=== PATIENT | male | born 1955 | race Caucasian/White ===

== ENCOUNTER 2019-06-25 16:44 | Inpatient (IN) | payer OTHER, MEDICARE, SELFPAY | END 2019-07-02 20:30 | disposition home health service (06) | DRG 541 | PROVIDERS: Admitting Provider Internal Medicine; Emergency Provider Emergency Medicine; PCP Family Medicine; Visit Provider Family Medicine | DX: M46.26 Osteomyelitis of vertebra, lumbar region (principal); L40.50 Arthropathic psoriasis, unspecified; F31.9 Bipolar disorder, unspecified; M54.5 Low back pain; G89.29 Other chronic pain; F17.210 Nicotine dependence, cigarettes, uncomplicated; J44.9 Chronic obstructive pulmonary disease, unspecified | CPT/HCPCS: 36415; 71045; 72148; 80048; 80053; 80202; 81003; 82565; 83605; 83690; 83735; 85025; 85027; 85652; 86141; 87040; 87081; 93308; 96361; 96365; 96372; 96375; 96376; 99285; A9270; G0378; J1170; J1650; J2270; J3010; J3370; J7060; J7120; J7512 ==

== ENCOUNTER 2020-07-06 12:41 | Outpatient (CLI) | payer OTHER, MEDICARE, SELFPAY ==
--- NOTE | ~2020-07-06 | MMUS_ITS ---
EXAMINATION: MM diagnostic mammo unilat RT, US breast RT limited HISTORY: Palpable subareolar lump of the right breast TECHNIQUE: Full field craniocaudal and mediolateral oblique views of the right breast are obtained. M ediolateral oblique view of the left breast is obtained for comparison. CAD analysis was submitted an d interpreted. High resolution limited right breast ultrasound was performed. COMPARISON: None BREAST PARENCHYMAL COMPOSITION: The breasts are almost entirely fatty. FINDINGS: MAMMOGRAPHIC FINDINGS: There is focal asymmetry in the subareolar aspect of the right breast compared to the left. No suspic ious calcification or architectural distortion are identified. ULTRASOUND: There is a flame-shaped hypoechoic area in the subareolar aspect of the right breast corresponding to the mammographic finding in question. IMPRESSION: 1. Mammographic and sonographic findings consistent with asymmetric gynecomastia of the right breast. Further evaluation at this time should be based on clinical assessment. Continued follow-up physical examination is recommended. BI-RADS Category 2: Benign finding(s). Reviewed, dictated and finalized at location A. IMPRESSION: 1. Mammographic and sonographic findings consistent with asymmetric gynecomasti a of the right breast. Further evaluation at this time should be based on clini jessica assessment. Continued follow-up physical examination is recommended. BI-RADS Category 2: Benign finding(s).
== END 2020-07-06 12:42 | disposition home or self-care (01) ==
PROVIDERS: PCP Family Medicine; Visit Provider Physician Assistant
DX: N63.41 Unspecified lump in right breast, subareolar (principal)
CPT/HCPCS: 76642; 77065

== ENCOUNTER 2020-08-28 20:27 | Inpatient (IN) | payer OTHER, MEDICARE, SELFPAY ==
--- NOTE | ~2020-08-28 | XR_ITS ---
EXAMINATION: XR abdomen obstructive series DATE: 08/31/2020 10:12 INDICATION: Abdominal distention TECHNIQUE: Supine and upright views of the abdomen. FINDINGS: 08/31/2020 The visualized lung parenchyma is normal.. There is an obstructive small bowel gas pattern. Gas and s tool are seen throughout the colon to the level of the rectum. There is no free air. There is a left hip arthroplasty. Moderate lumbar spondylosis. No acute osseous abnormality. Elevated right diaphrag m. IMPRESSION: 1. Small bowel obstruction. Reviewed, dictated and finalized at location B. IMPRESSION: 1. Small bowel obstruction.
--- NOTE | ~2020-08-28 | XR_ITS ---
EXAMINATION: XR abdomen obstructive series DATE: 08/31/2020 07:33 INDICATION: Adynamic ileus. TECHNIQUE: Upright and supine views of the abdomen were obtained. COMPARISON: CT abdomen and pelvis 08/28/2020, abdomen radiographs 08/29/2020 FINDINGS: There are multiple dilated loops of small bowel. The colon is normal in caliber. There is a paucity of stool in the colon. No free intraperitoneal gas. There is a bipolar left hip hemiarthropl asty. IMPRESSION: 1. Dilated small bowel with interval worsening, likely adynamic ileus. Reviewed, dictated and finalized at location A.
--- NOTE | ~2020-08-28 | XR_ITS ---
EXAMINATION: XR abdomen NG/feed tube insert DATE: 08/31/2020 10:39 INDICATION: Nasogastric tube placement. TECHNIQUE: An upright view of the abdomen was obtained. COMPARISON: Abdomen radiographs 08/31/2020 FINDINGS: The lower abdomen is excluded. There are multiple dilated loops of small bowel. The colon i s decompressed. The nasogastric tube tip is in the stomach. There is marked elevation of right hemidi aphragm with mild atelectasis at right lung base. IMPRESSION: 1. Nasogastric tube tip in the stomach. 2. Dilated small bowel, most likely adynamic ileus. Reviewed, dictated and finalized at location A.
--- NOTE | ~2020-08-28 | XR_ITS ---
EXAMINATION: XR abdomen obstructive series DATE: 08/29/2020 09:39 INDICATION: Low abdominal pain. TECHNIQUE: Upright and supine views of the abdomen on 3 radiographs were obtained. COMPARISON: Abdomen radiographs 07/24/2019 FINDINGS: There are multiple dilated loops of small bowel. The colon is decompressed. No free intrape ritoneal gas. There is a bipolar left hip hemiarthroplasty. IMPRESSION: 1. Newly dilated small bowel, likely adynamic ileus. Reviewed, dictated and finalized at location A.
--- NOTE | ~2020-08-28 | CT_ITS ---
EXAMINATION: CT abdomen pelvis w con DATE: 08/31/2020 13:20 INDICATION: Abdominal pain and distention TECHNIQUE: Computed tomography (CT) of the abdomen and pelvis was performed with 100 mL Omnipaque-350 intravenous contrast. Automated exposure control and iterative reconstruction technique were employe d. The dose-length product was 1004.70 mGy-cm. COMPARISON: 08/28/2020 FINDINGS: Chronic elevation of the right hemidiaphragm. Small right pleural effusion and right lower lobe colla pse. Mild atelectasis in the left lower lobe and lingula. Heart size is normal. Atherosclerotic coron mila artery calcific calcification versus stenting at the left anterior descending coronary artery. No pericardial effusion. Nasogastric tube tip in the body of the stomach. Diffuse hepatic steatosis. Ga llbladder, spleen and bilateral adrenal glands are normal. There are are couple tiny calcifications a t the head of the otherwise normal pancreas which could be either atherosclerotic or sequela of chron ic pancreatitis. Kidneys enhance symmetrically with no hydronephrosis. Small region of cortical scarr ing at the mid right kidney. 6 mm cyst at the upper pole of the left kidney. Multiple mildly dilated loops of gas and fluid-filled small bowel throughout the abdomen and pelvis m easuring up to 4.4 cm in maximal diameter and extending from the mid small bowel through the terminal ileum with no discrete transition point to suggest obstruction. There is an irregular wall thickenin g at the cecum with surrounding inflammatory stranding which could be related to focal colitis. Fluid in the proximal colon consistent with diarrhea. No pneumatosis or free intraperitoneal gas. Increase in a still small amount of ascites scattered throughout the abdomen and pelvis. Bladder is normal. S mall fat-containing left inguinal hernia. No pathologically enlarged abdominal or pelvic lymphadenopa thy. Severe thoracolumbar spondylosis. Anterior wedging of the now fused T11 and T12 vertebral bodies which could represent sequela of chronic trauma or discitis. Partially visualized bipolar type left hip hemiarthroplasty. IMPRESSION: 1. Persistent wall thickening at the cecum which could be related to focal colitis although different ial would include malignancy. Correlate clinically and consider follow-up colonoscopy when clinically appropriate. 2. Mild dilation of the mid to distal small bowel extending to the ileocecal valve without discrete o bstructing small bowel lesion. This could represent either ileus or partial small bowel obstruction a t the level of the cecum/ileocecal valve. 3. Increase in a still small amount of likely reactive ascites throughout the abdomen and pelvis. 4. Elevation of the right hemidiaphragm, small right pleural effusion and right lower lobar collapse. 5. Diffuse hepatic steatosis. Reviewed, dictated and finalized at location A. IMPRESSION: 1. Persistent wall thickening at the cecum which could be related to focal coli tis although differential would include malignancy. Correlate clinically and co nsider follow-up colonoscopy when clinically appropriate. 2. Mild dilation of the mid to distal small bowel extending to the ileocecal va lve without discrete obstructing small bowel lesion. This could represent eithe r ileus or partial small bowel obstruction at the level of the cecum/ileocecal valve. 3. Increase in a still small amount of likely reactive ascites throughout the a bdomen and pelvis. 4. Elevation of the right hemidiaphragm, small right pleural effusion and right lower lobar collapse. 5. Diffuse hepatic steatosis.
--- NOTE | ~2020-08-28 | CT_ITS ---
EXAMINATION: CT abdomen pelvis w con EXAM DATE: 08/28/2020 21:27 INDICATION: Right-sided abdominal pain. TECHNIQUE: Spiral CT of the abdomen and pelvis was performed following intravenous injection of 100 m L Omnipaque 350. Axial, coronal and sagittal images were reviewed. The dose-length product (DLP) fo r this examination was 688.84 mGy-cm. The exposure was tailored according to patient size (auto mA e xposure control), and iterative reconstruction (ASIR) was used as additional dose reduction technique . Comparison is made to prior examination from 10/24/2019. FINDINGS: There is colonic interposition. The ascending colon is edematous, with adjacent inflammatio n. The appendix is not specifically identified. There are several punctate foci of gas within the soheila er likely portal venous gas. No pneumatosis is specifically identified within the colonic wall. Appea clay is most of this with colitis. The opacified vasculature is widely patent, but check amylase/lip ase. Small amount of perihepatic ascites. The liver, spleen, adrenal glands and pancreas are unremarkable. Gallbladder is unremarkable. No biliary obstruction. Portal and splenic veins are patent. Kidney s enhance symmetrically. There is no hydronephrosis. The prostate is unremarkable. Small amount of free pelvic fluid. The bladder is unremarkable. There is no retroperitoneal or pelvic lymphadenopa thy. There is mild scattered arteriosclerotic disease. The stomach and small bowel are unremarkable. There is expected amount of colonic stool. No free i ntraperitoneal gas. The heart is normal in size. There are no pericardial or pleural effusions. D evelopment of elevated right hemidiaphragm with subsegmental right lower lobe atelectasis. There are no osteoblastic or osteolytic lesions identified. There is left hip arthroplasty. T11-12 partially f used appearance could be sequela from prior episode of discitis. IMPRESSION: 1. Moderate amount of ascending colonic inflammation, wall edema, appearance most consistent with col itis. Small amount of portal venous gas. Could be infectious etiology but check amylase/lipase. Inqui re about history of appendectomy. 2. Right lower lobe segmental atelectasis. Reviewed, dictated and finalized at location A. IMPRESSION: 1. Moderate amount of ascending colonic inflammation, wall edema, appearance mo st consistent with colitis. Small amount of portal venous gas. Could be infecti ous etiology but check amylase/lipase. Inquire about history of appendectomy. 2. Right lower lobe segmental atelectasis.
--- NOTE | ~2020-08-28 | XR_ITS ---
EXAMINATION: XR chest 1V portable DATE: 08/31/2020 10:12 INDICATION: Shortness of breath. TECHNIQUE: A single frontal view of the chest was obtained. COMPARISON: Chest 2 views 11/14/2019, CT abdomen and pelvis 08/28/2020 FINDINGS: There is marked elevation of right hemidiaphragm. There is atelectasis at the lung bases, r ight worse than left. No pleural effusion or pneumothorax. The heart size is normal. IMPRESSION: 1. Marked elevation of right hemidiaphragm, worsened from 11/14/2019. 2. Atelectasis at the lung bases, right worse than left. Reviewed, dictated and finalized at location A.
[2020-08-28 20:36] VITALS: BP 140/77; PULSE 130; RESP 24; TEMP 36.1; O2SAT 93
[2020-08-28 20:40] VITALS: BP 155/99; PULSE 127; RESP 23; O2SAT 97
--- NOTE | 2020-08-28 20:40 | ECG_ITS ---
Measurements Intervals [place] Rate: 94 P: 114 [place]: 189 QRS: -12 QRSD: 93 T: 63 QT: 295 QTc: 369 Interpretive Statements SINUS TACHYCARDIA BORDERLINE R WAVE PROGRESSION, ANTERIOR LEADS BASELINE ARTIFACT- II, III, AVR, AVF, V4 ABNORMAL ECG Electronically Signed On 08-29-2020 7:31:27 CDT by Jeronimo Snow D.O.
[2020-08-28] MEDS: MORPHINE SULFATE (*CRX) 4 MG/ML INJ IV PUSH ×2 (21:01→22:56)
[2020-08-28] MEDS: ONDANSETRON INJ 4 MG/2 ML VIAL IV PUSH (21:01)
[2020-08-28] MEDS: SODIUM CHLORIDE 0.9% IV 1,000 ML 999 ML IV CONT ×2 (21:01→23:50)
[2020-08-28 21:11] LABS: Basophils Percent Auto 0.2 % (0.2-1.2); Eosinophils Percent Auto 0.1 % (0-4.4); Hematocrit 42.7 % (42.0-52.0); Hemoglobin 14.2 g/dL (14.0-18.0); Immature Granulocyte Absolute 0.09 K/mm3 (0.00-0.031); Immature Granulocyte Percent A 0.5 % (0-0.5); Lymphocytes Absolute Auto 1.36 K/mm3 (0.9-3.2); Lymphocytes Percent Auto 7.2 % (18.3-44.2); Mean Corpuscular HGB Conc 33.3 g/dl (32-36); Mean Corpuscular Hemoglobin 33.3 pg (26-34); Mean Corpuscular Volume 100.2 fl (80-100); Mean Platelet Volume 9.5 fl (7.4-10.4); Monocytes Absolute Auto 0.9 K/mm3 (0.1-0.6); Monocytes Percent Auto 4.5 % (2.6-8.5); Neutrophils Absolute Auto 16.6 K/mm3 (1.3-6.7); Neutrophils Percent Auto 87.5 % (45.5-73.1); Platelet Count Result 289 k/mm3 (150-375); Red Blood Count 4.26 M/mm3 (4.6-6.20); Red Cell Distribution Width 15.9 % (11.5-14.5)
[2020-08-28 21:20] LABS: Estimated CRCL calculation 76 ml/min; Estimated Glomerular Filt Rate > 60
[2020-08-28 21:22] LABS: Alanine Aminotransferase 32 U/L (4-50); Albumin Level 3.9 g/dL (3.5-5.1); Alkaline Phosphatase 90 U/L (38-126); Anion Gap 4 mmol/L (8-16); Aspartate Amino Transferase 35 U/L (17-59); Bilirubin,Total 0.6 mg/dL (0.2-1.3); Blood Urea Nitrogen 10 mg/dL (9-20); Calcium 8.9 mg/dL (8.4-10.2); Carbon Dioxide 34 mmol/L (22-30); Chloride 92 mmol/L (98-107); Estimated CRCL calculation 76 ml/min; Estimated Glomerular Filt Rate > 60; Glucose 128 mg/dL (75-110); Lipase 44 U/L (23-300); Potassium 4.3 mmol/L (3.4-5.0); Sodium 130 mmol/L (137-145)
--- NOTE | 2020-08-28 22:00 | ED.GENADULT ---
HPI - General Adult General Chief complaint: Abdominal Pain Stated complaint: ABD PAIN Time Seen by Provider: 08/28/20 20:38 History of Present Illness HPI narrative: Patient is a 64-year-old male who presents the ER with sudden onset right-sided abdominal pain. He had been at home throughout the day moving some furniture. He reports he was lifting something and developed some sudden pain on the right side. He does endorse loose stool earlier today. No fevers or chills or sweats. Pain is worse with any type of movement. He has not found any alleviating factors other than laying still. Reports he has had his appendix out previously. Related Data Home Medications Medication Instructions Recorded Confirmed B-complex with vitamin C 1 tablet PO DAILY 10/17/19 aripiprazole 2 mg tablet 2 mg PO DAILY 10/17/19 aspirin 81 mg tablet,delayed 81 mg PO DAILY 10/17/19 release atorvastatin 20 mg tablet 20 mg PO DAILY 10/17/19 cholecalciferol (vitamin D3) 25 2,000 unit PO DAILY cap 10/17/19 mcg (1,000 unit) capsule cyclobenzaprine 10 mg tablet 10 mg PO TID 10/17/19 folic acid 1 mg tablet 1 mg PO DAILY 10/17/19 ipratropium 20 mcg-albuterol 100 1 puff INHALATION Q4H 10/17/19 mcg/actuation mist for inhalation lisinopril 10 mg tablet 10 mg PO DAILY 10/17/19 multivitamin 1 cap PO DAILY 10/17/19 oxycodone-acetaminophen 10 mg-325 1 tablet PO Q8H PRN 10/17/19 mg tablet prednisolone sodium phosphate 10 10 mg PO DAILY 10/17/19 mg disintegrating tablet venlafaxine 150 mg 150 mg PO DAILY 10/17/19 capsule,extended release 24 hr Allergies Allergy/AdvReac Type Severity Reaction Status Date / Time vancomycin AdvReac Flushing Verified 08/28/20 20:39 Review of Systems Review of Systems: All systems reviewed & are unremarkable except as noted in HPI and below Constitutional: Constitutional: Denies chills, Denies fever(s) and Denies weakness ENT: Denies nasal congestion and Denies sore throat Cardiovascular: Cardiovascular: Denies chest pain and Denies radiating jaw, neck or arm pain Respiratory: Respiratory: Denies cough and Denies dyspnea Gastrointestinal: Gastrointestinal: Reports abdominal pain, Reports diarrhea, Denies nausea and Denies vomiting [facility] Past Medical History Medical History (Updated 11/15/19 @ 00:00 by Isela Dakaushik) Bipolar 1 disorder COPD (chronic obstructive pulmonary disease) Depression History of MRSA infection History of stomach ulcers HTN (hypertension) Surgical History Surgical History H/O heart artery stent History of hip replacement Family History Family History Father COPD (chronic obstructive pulmonary disease) Mother Cancer Unknown Cancer Social History Social History Smoking packs per day: 1.5 Smoking cigarettes per day: 30.0 Years smoked: 47 Smoking pack-years: 70.50 Smoking status: Current every day smoker Tobacco type: cigarettes Additional smoking assessment comments: trying to quit Alcohol intake: current Drinks per week: 1 Substance use: never Gender identity (if verbalized by the patient): Male Spiritual care concerns: No Exam Narrative: Exam Narrative: GENERAL: Uncomfortable-appearing, well-nourished, and in no mild distress. HEAD: Normocephalic, atraumatic. ENT: Mucous membranes moist. CHEST: Clear to auscultation. No respiratory distress. HEART: Tachycardic and regular.. Normal peripheral pulses. ABDOMEN: Soft, tender to palpation right upper quadrant but significantly tender in the right lower quadrant with guarding, nondistended, normal active bowel sounds. EXTREMITIES: Normal range of motion. No edema. SKIN: Warm, dry, no rash. NEURO: Alert and oriented x3. PSYCH: Normal mood and affect. Course Course Emergency Course: Pain improving but pat
[2020-08-28 22:14] LABS: Add Urine Microscopic? NO; Appearance Urine Clear (Clear); Bilirubin Urine Negative (Negative); Blood Urine Negative (Negative); Color Urine Yellow (Yellow); Glucose Urine UA Negative (Negative); Ketones Urine Negative (Negative); Leukocyte Esterase Ur Negative LEU/UL (Negative); Nitrate Urine Negative (Negative); Protein Urine Negative (Negative); Urobilinogen Urine Negative mg/dL (<2.0)
[2020-08-28] MEDS: metroNIDAZOLE 500 MG/ISO 100ML 500 MG/100 ML BAG 100 MG IVPB (22:24)
[2020-08-28 22:43] LABS: Specific Grav Ur 1.033 (1.001-1.035)
[2020-08-28] MEDS: CIPROFLOXACIN 400 MG/D5W 200ML 200 ML 200 MG IVPB (22:48)
[2020-08-28 22:53] LABS: Lactic Acid Reflex 1.6 mmol/L (0.7-2.1)
[2020-08-28 22:58] VITALS: BP 148/75; PULSE 111; O2SAT 92
[2020-08-28 23:14] VITALS: BP 112/67; PULSE 135; RESP 20; TEMP 37.3; O2SAT 91
[2020-08-28 23:15] VITALS: BMI 28.4
[2020-08-28 23:32] VITALS: BMI 28.7
--- NOTE | 2020-08-28 23:33 | ADMGEN ---
This patient, Israel Plascencia Sr., was admitted to IMU Room 212-01 at 23:18. Patient/family oriented to hospital policies and general routines including ID bracelet, bed and alarms, visiting hours, pain management, procedures, bathroom and other care routines, personal items, smoking policy, room service/diet, and visiting hours. Information on how to activate the Rapid Response Team has been discussed. Patient/Family are encouraged to report perceived risks to care and to ask questions if they do not understand what they are told or what they should do.
[2020-08-29] VITALS (16 sets, daily range): BP systolic 108–129; BP diastolic 59–80; PULSE 100–137; RESP 20–28; TEMP 36.1–36.5; O2SAT 91–98
--- NOTE | 2020-08-29 00:13 | PM.IMHP ---
H&P: HPI History of Present Illness Date/Time: 08/28/20 1753 Chief complaint: Colitis Narrative: Israel Plascencia Sr. is a 64 year old male Who came to the emergency room today because he started to have abdominal pain since 4:00 this afternoon. The patient stated that he had been having loose stools but not diarrhea water Gerry 2 [place]. He has not been having any blood in his stools. He has been having normal bowel movements. He has had a history of having small-bowel obstructions and ileus in the past. He has had a history of having worsened his bloodstream as well. The patient had been on antibiotics for 45 days in the past he had osteomyelitis in his back. He has also had a history of stomach ulcers as well. The patient stated he felt nauseated today but did not vomit. He states that his pain is severe and he was given morphine in the emergency room which just relieved it minimally and is still in pain. Blood cultures have been obtained. Abdominal pelvis CT was read as moderate amount of the ascending colonic inflammation, wall edema, appearance most consistent with colitis. Small amount of portal venous gas could be infectious etiology but check amylase lipase. Inquire about history of appendectomy. Right lower lobe segmental atelectasis. Patient was started on Flagyl and Cipro. He was started on IV fluids. Patient is still in discomfort. His white count was noted to be 19.0. Sodium is low at 130. Lactic was normal at 1.6. Patient is being admitted as observation on 08/28/2020 Review of Systems Review of Systems: All systems reviewed & are unremarkable except as noted in HPI and below Constitutional: Constitutional: Reports as per HPI and Reports no additional constitutional complaints Eyes: Eyes: Reports as per HPI and Reports no additional eye complaints ENT: Reports system reviewed and no additional complaints, except as documented and Reports Normal hearing present Cardiovascular: Cardiovascular: Reports no additional cardiovascular complaints Respiratory: Respiratory: Reports no additional respiratory complaints and Reports no additional respiratory complaints Gastrointestinal: Gastrointestinal: Reports as per HPI and Reports no additional gastrointestinal complaints Musculoskeletal: Musculoskeletal: Reports no additional musculoskeletal complaints Integumentary/Breasts: Skin/Breast: Reports system reviewed and no additional complaints, except as docu and Reports as per HPI Neurologic: Reports system reviewed and no additional complaints, except as documented, Reports as per HPI and Reports Normal hearing present Psychiatric: Psychiatric: Reports no additional psychiatric complaints and Reports as per HPI Endocrine: Endocrine: Reports no additional endocrine complaints Hematologic/Lymphatic: Hematologic/Lymphatic: Reports no additional hematologic/lymphatic complaints Allergic/Immunologic: Allergic/Immunologic: Reports no additional allergic/immunologic complaints [facility] Past Medical History Medical History (Updated 08/29/20 @ 00:32 by Kelsi Dejesus NP) Anxiety and depression Bipolar 1 disorder CAD (coronary artery disease) 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 Repeat evaluation and was in 2017. Chronic back pain COPD (chronic obstructive pulmonary disease) Depression History of MRSA infection History of stomach ulcers History of suicide attempt multiple times HTN (hypertension) Hyperlipidemia MRSA infection Psoriatic arthritis Surgical History Surgical History (Updated 08/29/20 @ 00:27 by Kelsi Dejesus NP) H/O heart artery stent 1 stent 2004 with a repeat catheterization in 2006 no intervention was done at that time H/O toe surgery hammertoe repair History of ankle surgery left heel repaired History of appendectomy 1986 History of hip replacement Hx of rhinoplasty Family History Family History
[2020-08-29] MEDS: SODIUM CHLORIDE 0.9% IV 1,000 ML 125 ML IV CONT ×2 (02:24→12:15)
[2020-08-29] MEDS: HYDROmorphone HCL INJ (*CRX) 1 MG/ML SYR IV PUSH ×2 (03:27→06:46)
[2020-08-29] MEDS: HYDROcodone/acetaminophen (*CRX) 5-325 MG TABLET 1 TAB PO ×3 (05:29→15:17)
[2020-08-29] MEDS: metroNIDAZOLE 500 MG/ISO 100ML 500 MG/100 ML BAG 100 MG IVPB ×3 (05:37→21:41)
[2020-08-29] MEDS: CYCLOBENZAPRINE HCL 10 MG TABLET PO (08:48)
[2020-08-29] MEDS: FOLIC ACID 1 MG TABLET 3 MG PO (08:49)
[2020-08-29] MEDS: PANTOPRAZOLE SODIUM IV 40 MG VIAL IV PUSH ×2 (08:50→20:36)
[2020-08-29] MEDS: VENLAFAXINE HCL XR 75 MG CAP.ER.24H 225 MG PO (08:50)
[2020-08-29] MEDS: predniSONE 10 MG TABLET PO (08:51)
[2020-08-29] MEDS: ARIPiprazole 2 MG TABLET PO (08:51)
[2020-08-29] MEDS: CHOLECALCIFEROL 1,000 UNITS TABLET 2000 UNITS PO (08:51)
[2020-08-29] MEDS: CIPROFLOXACIN 400 MG/D5W 200ML 200 ML 200 MG IVPB ×2 (09:00→20:36)
--- NOTE | 2020-08-29 09:15 | PM.IMPN ---
Progress Note: A&P Assessment and Plan (1) Sepsis: Code(s): A41.9 - Sepsis, unspecified organism Status: Acute Assessment and Plan: Present on admission with tachycardia, tachypnea and leukocytosis. Related to the colitis. Symptoms are persistent. Repeat labs and repeat lactic acid. KUB showing dilated SB probably ileus. WBC better. lactic higher at 2.6 but Na better. Plt count okay. Not nauseous. Keep NPO. Increase activity with walking. Place NGT if having nausea. (2) Colitis: Code(s): K52.9 - Noninfective gastroenteritis and colitis, unspecified Status: Acute Assessment and Plan: Patient with significant abd pain even with breathing. Concern he may have perforated. NPO. Continue Flagyl and Cipro. GI consult. Check abd series. Stool cx ordered. Add CDiff since recently on abx. Has been receiving Diludid and Percocet so doubt he is withdrawing. Close monitoring. (3) COPD (chronic obstructive pulmonary disease): Code(s): J44.9 - Chronic obstructive pulmonary disease, unspecified Status: Chronic Assessment and Plan: Patient hypoxic with narcotics which is probably depressing his respiratory drive. ABG in November showing normal pCO2. Will decrease Dilaudid dose no lobes of controlling pain but not causing further hypoxia. Continue supplemental oxygen as needed. Continue his inhalers. Continue with Singulair. Was on levaquin on admission for bronchitis. Will hold on starting albuterol given his tachycardia. (4) Anxiety and depression: Code(s): F41.9 - Anxiety disorder, unspecified; F32.9 - Major depressive disorder, single episode, unspecified Status: Chronic Assessment and Plan: Patient with bipolar disorder - major depression with history of suicide and anxiety. He has been resumed on his Abilify and Effexor. Ativan available as needed for anxiety. Some of his symptoms could be related to panic attack. Will use Ativan if his obstructive series is normal. (5) Psoriatic arthritis: Code(s): L40.50 - Arthropathic psoriasis, unspecified Status: Chronic Assessment and Plan: Patient is on immunosuppressive agents including steroids and methotrexate. Will continue current steroids but he may need stress dose steroids if his condition deteriorates. Will hold his methotrexate given his current infection. Do not want to start stress dose steroids at this time since his symptoms may be relate anxiety and steroids would exacerbate this. His BP stable at this time (6) HTN (hypertension): Code(s): I10 - Essential (primary) hypertension Status: Chronic Assessment and Plan: Patient's blood pressure was reviewed on 08/29 Blood pressure remains well controlled. On atenolol and Coreg at home. Will resume Coreg. (7) CAD (coronary artery disease): Code(s): I25.10 - Atherosclerotic heart disease of [place] coronary artery without angina pectoris Status: Chronic Assessment and Plan: Patient has a history of having 1 cardiac stent and he is on aspirin, Lipitor and beta bi. Will resume Coreg. Continue to hold ASA and Lipitor. (8) Hyperlipidemia: Code(s): E78.5 - Hyperlipidemia, unspecified Status: Chronic Assessment and Plan: LFTs normal. Atorvastatin on hold currently. (9) Bipolar 1 disorder: Code(s): F31.9 - Bipolar disorder, unspecified Status: Chronic Assessment and Plan: As above. (10) DVT prophylaxis: Code(s): Z29.9 - Encounter for prophylactic measures, unspecified Status: Acute Assessment and Plan: SCDs Subjective Date/time seen: 08/29/20 09:15 Interval history: Date of service 08/29 64yo male with chronic pain syndrome from ch back pain, psoriatic arthritis on immunosuppression and bipolar disorder her for abdominal pain and found to have colitis and portal venous gas.
[2020-08-29 10:04] LABS: Basophils Percent Auto 0.2 % (0.2-1.2); Eosinophils Percent Auto 0.1 % (0-4.4); Hematocrit 38.1 % (42.0-52.0); Hemoglobin 12.4 g/dL (14.0-18.0); Immature Granulocyte Absolute 0.05 K/mm3 (0.00-0.031); Immature Granulocyte Percent A 0.3 % (0-0.5); Lymphocytes Absolute Auto 0.65 K/mm3 (0.9-3.2); Lymphocytes Percent Auto 4.2 % (18.3-44.2); Mean Corpuscular HGB Conc 32.5 g/dl (32-36); Mean Corpuscular Hemoglobin 33.2 pg (26-34); Mean Corpuscular Volume 101.9 fl (80-100); Mean Platelet Volume 9.9 fl (7.4-10.4); Monocytes Absolute Auto 0.6 K/mm3 (0.1-0.6); Monocytes Percent Auto 4.1 % (2.6-8.5); Neutrophils Percent Auto 91.1 % (45.5-73.1); Platelet Count Result 233 k/mm3 (150-375); Red Blood Count 3.74 M/mm3 (4.6-6.20); Red Cell Distribution Width 16.4 % (11.5-14.5); White Blood Count 15.4 K/mm3 (4.5-10.0)
[2020-08-29 10:16] LABS: Lactic Acid Reflex 2.6 mmol/L (0.7-2.1); Lipase 27 U/L (23-300); Potassium 4.2 mmol/L (3.4-5.0)
[2020-08-29 10:21] LABS: Alanine Aminotransferase 26 U/L (4-50); Albumin Level 3.3 g/dL (3.5-5.1); Alkaline Phosphatase 65 U/L (38-126); Anion Gap 3 mmol/L (8-16); Aspartate Amino Transferase 29 U/L (17-59); Bilirubin,Total 0.6 mg/dL (0.2-1.3); Blood Urea Nitrogen 11 mg/dL (9-20); Calcium 8.1 mg/dL (8.4-10.2); Carbon Dioxide 30 mmol/L (22-30); Chloride 99 mmol/L (98-107); Estimated CRCL calculation 86 ml/min; Estimated Glomerular Filt Rate > 60; Glucose 183 mg/dL (75-110); Sodium 132 mmol/L (137-145)
[2020-08-29 10:25] LABS: INR 1.1; Prothrombin Time 13.6 Seconds (11.1-14.7)
[2020-08-29] MEDS: LORazepam INJ (*CRX) 2 MG/ML VIAL 0.5 MG IV PUSH (12:13)
[2020-08-29] MEDS: HYDROmorphone HCL INJ (*CRX) 1 MG/ML SYR 0.5 MG IV PUSH ×3 (12:13→20:47)
[2020-08-29] MEDS: carvediloL 6.25 MG TABLET PO ×2 (12:14→20:35)
[2020-08-29 13:02] LABS: Reflex Lactic Acid Yes or No Add Lactic
[2020-08-29 13:37] LABS: Lactic Acid 0.9 mmol/L (0.7-2.1)
[2020-08-29] MEDS: guaiFENesin 12 HR 600 MG TABCR PO (18:41)
[2020-08-30] VITALS (19 sets, daily range): BP systolic 106–151; BP diastolic 79–91; PULSE 92–120; RESP 20–28; TEMP 36–36.8; O2SAT 90–100
[2020-08-30] MEDS: HYDROmorphone HCL INJ (*CRX) 1 MG/ML SYR 0.5 MG IV PUSH ×3 (00:16→08:49)
[2020-08-30] MEDS: LORazepam INJ (*CRX) 2 MG/ML VIAL 0.5 MG IV PUSH ×3 (00:19→20:23)
[2020-08-30] MEDS: SODIUM CHLORIDE 0.9% IV 1,000 ML 125 ML IV CONT ×2 (02:10→12:33)
[2020-08-30 05:36] LABS: Basophils Percent Auto 0.2 % (0.2-1.2); Eosinophils Percent Auto 0.2 % (0-4.4); Hemoglobin 11.3 g/dL (14.0-18.0); Immature Granulocyte Absolute 0.09 K/mm3 (0.00-0.031); Immature Granulocyte Percent A 0.6 % (0-0.5); Lymphocytes Percent Auto 6.1 % (18.3-44.2); Mean Corpuscular HGB Conc 32.3 g/dl (32-36); Mean Corpuscular Hemoglobin 32.6 pg (26-34); Mean Corpuscular Volume 100.9 fl (80-100); Mean Platelet Volume 9.9 fl (7.4-10.4); Monocytes Absolute Auto 1.4 K/mm3 (0.1-0.6); Monocytes Percent Auto 8.6 % (2.6-8.5); Neutrophils Absolute Auto 13.7 K/mm3 (1.3-6.7); Neutrophils Percent Auto 84.3 % (45.5-73.1); Platelet Count Result 220 k/mm3 (150-375); Red Blood Count 3.47 M/mm3 (4.6-6.20); Red Cell Distribution Width 16.2 % (11.5-14.5); White Blood Count 16.3 K/mm3 (4.5-10.0)
[2020-08-30] MEDS: metroNIDAZOLE 500 MG/ISO 100ML 500 MG/100 ML BAG 100 MG IVPB ×3 (05:40→21:55)
[2020-08-30 05:45] LABS: Alanine Aminotransferase 20 U/L (4-50); Albumin Level 3.1 g/dL (3.5-5.1); Alkaline Phosphatase 91 U/L (38-126); Anion Gap 2 mmol/L (8-16); Aspartate Amino Transferase 30 U/L (17-59); Bilirubin,Total 0.6 mg/dL (0.2-1.3); Blood Urea Nitrogen 13 mg/dL (9-20); Calcium 8.4 mg/dL (8.4-10.2); Carbon Dioxide 30 mmol/L (22-30); Chloride 102 mmol/L (98-107); Estimated CRCL calculation 86 ml/min; Estimated Glomerular Filt Rate > 60; Glucose 85 mg/dL (75-110); Lipase 21 U/L (23-300); Magnesium 1.9 mg/dL (1.6-2.3); Phosphorus 2.7 mg/dL (2.5-4.5); Potassium 4.1 mmol/L (3.4-5.0); Sodium 134 mmol/L (137-145)
[2020-08-30 07:24] LABS: Thyroid Stimulating Hormone Reflex 0.835 uIU/mL (0.465-4.68)
[2020-08-30] MEDS: CIPROFLOXACIN 400 MG/D5W 200ML 200 ML 200 MG IVPB ×2 (08:25→20:28)
[2020-08-30] MEDS: ARIPiprazole 2 MG TABLET PO (08:49)
[2020-08-30] MEDS: HYDROcodone/acetaminophen (*CRX) 5-325 MG TABLET 1 TAB PO ×2 (08:49→15:38)
[2020-08-30] MEDS: VENLAFAXINE HCL XR 75 MG CAP.ER.24H 225 MG PO (08:50)
[2020-08-30] MEDS: carvediloL 6.25 MG TABLET PO ×2 (08:50→20:17)
[2020-08-30] MEDS: guaiFENesin 12 HR 600 MG TABCR PO ×2 (08:50→20:18)
[2020-08-30] MEDS: PANTOPRAZOLE SODIUM IV 40 MG VIAL IV PUSH ×2 (08:50→20:18)
[2020-08-30] MEDS: predniSONE 10 MG TABLET PO (08:50)
[2020-08-30] MEDS: CHOLECALCIFEROL 1,000 UNITS TABLET 2000 UNITS PO (08:51)
[2020-08-30] MEDS: FOLIC ACID 1 MG TABLET 3 MG PO (08:51)
--- NOTE | 2020-08-30 11:33 | WPDGICN ---
Assessment and Plan Assessment and plan (1) Colitis: Code(s): K52.9 - Noninfective gastroenteritis and colitis, unspecified Status: Acute Assessment and Plan: continue with supportive care, reviewed CT scan findings keep npo, also ileus by kub on iv antibiotics, pending blood cultures and ordered stool samples normalization of lactic level at some point will need colonoscopy as outpatient (2) Ileus: Code(s): K56.7 - Ileus, unspecified Status: Acute Assessment and Plan: npo status for now, fluids and supportive care (3) Lower abdominal pain: Code(s): R10.30 - Lower abdominal pain, unspecified Status: Acute (4) Sepsis: Code(s): A41.9 - Sepsis, unspecified organism Status: Acute Assessment and Plan: with leukocytosis and presentation to ER on treatment (5) Bipolar 1 disorder: Code(s): F31.9 - Bipolar disorder, unspecified Status: Chronic (6) COPD (chronic obstructive pulmonary disease): Code(s): J44.9 - Chronic obstructive pulmonary disease, unspecified Status: Chronic GI Consult Note Consult date/time: 08/30/20 11:33 Reason for consult: colitis, abdominal pain HPI: Israel L Temo is a 64 year old male with history of hip replacement, bipolar, copd, HTN, gastric ulcers. Also history of antibiotic use for 1.5 months when had osteomyelitis in his back (found several months ago when had CT scan for possible abdominal hernia which was ruled out). He came to the emergency room yesterday because new onset of abdominal pain. Also had loose stools. Pain was severe, now he is sleepy and does not want to talk much. Blood cultures have been obtained. Abdominal pelvis CT showed moderate amount of the ascending colonic inflammation, wall edema c/w with colitis. Small amount of portal venous gas could be infectious. He was admitted to hospital and started on Flagyl and Cipro. His white count was 19.0 down to 15. Sodium 130. lactic 2.6 repeat today normal. He does not remember having a colonoscopy. Review of Systems Review of Systems: All systems reviewed & are unremarkable except as noted in HPI and below Constitutional: Constitutional: Denies chills, Denies fever(s) and Denies weakness Eyes: Eyes: Denies blurry vision ENT: Denies nasal congestion and Denies sore throat Cardiovascular: Cardiovascular: Denies chest pain and Denies radiating jaw, neck or arm pain Respiratory: Respiratory: Denies cough and Denies dyspnea Gastrointestinal: Gastrointestinal: Reports abdominal pain, Reports diarrhea, Denies nausea and Denies vomiting Genitourinary: Genitourinary: Denies dysuria Musculoskeletal: Musculoskeletal: Denies joint swelling Integumentary/Breasts: Skin/Breast: Denies pruritus Neurologic: Denies vertigo Psychiatric: Psychiatric: Denies suicidal ideation [facility] Past Medical History Medical History (Updated 08/30/20 @ 11:42 by Arnoldo Mcclain MD) Anxiety and depression Bipolar 1 disorder CAD (coronary artery disease) 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 Repeat evaluation and was in 2017. Chronic back pain COPD (chronic obstructive pulmonary disease) Depression History of MRSA infection History of stomach ulcers History of suicide attempt multiple times HTN (hypertension) Hyperlipidemia Ileus Lower abdominal pain MRSA infection Psoriatic arthritis Surgical History Surgical History (Updated 08/29/20 @ 00:27 by Kelsi Dejesus NP) H/O heart artery stent 1 stent 2004 with a repeat catheterization in 2006 no intervention was done at that time H/O toe surgery hammertoe repair History of ankle surgery left heel repaired History of appendectomy 1986 History of hip replacement Hx of rhinoplasty Family History Family History Father COPD (chronic obstructive pulmonary disease) Mother Cancer Unknown
--- NOTE | 2020-08-30 12:15 | PC.NURSE ---
Patient's is to bring in home medication today.
--- NOTE | 2020-08-30 13:04 | PHAR ---
HOME MEDICATION VERIFIED BY PHARMACY PRIMO MOORE INHALER
--- NOTE | 2020-08-30 16:45 | PC.NURSE ---
ASSISTED PATIENT WITH AMBULATION IN HALLS APPROXIMATELY 40 FEET.
--- NOTE | 2020-08-30 17:11 | PM.IMPN ---
Progress Note: A&P Assessment and Plan (1) Sepsis: Code(s): A41.9 - Sepsis, unspecified organism Status: Acute Assessment and Plan: Present on admission with tachycardia, tachypnea and leukocytosis. Related to the colitis. Symptoms are persistent but better overall. WBC slightly worse. Keep in IMU (2) Colitis: Code(s): K52.9 - Noninfective gastroenteritis and colitis, unspecified Status: Acute Assessment and Plan: Abd pain better. Abd series yesterday showing dilated SB probably ileus. No n/v. GI following and appreciate their input. Continue to have the patient up walking in the halls to prevent worsening ileus symptoms. Stool cx ordered. Will continue Flagyl and Cipro. Start full liquid diet. PT/OT (3) COPD (chronic obstructive pulmonary disease): Code(s): J44.9 - Chronic obstructive pulmonary disease, unspecified Status: Chronic Assessment and Plan: Patient hypoxic with narcotics which is probably depressing his respiratory drive. ABG in November showing normal pCO2. We decreased Dilaudid yesterday but will stop it today. Continue supplemental oxygen as needed. Continue his inhalers. Continue with Singulair. Was on levaquin on admission for bronchitis but not resumed. Will hold on starting albuterol given his tachycardia. Resume home narcotic dosing. (4) Anxiety and depression: Code(s): F41.9 - Anxiety disorder, unspecified; F32.9 - Major depressive disorder, single episode, unspecified Status: Chronic Assessment and Plan: Patient with bipolar disorder - major depression with history of suicide and anxiety. He has been resumed on his Abilify and Effexor. Ativan available as needed for anxiety. Some of his symptoms yesterday could be related to panic attack. Mood much better controlled. (5) Psoriatic arthritis: Code(s): L40.50 - Arthropathic psoriasis, unspecified Status: Chronic Assessment and Plan: Patient is on immunosuppressive agents including steroids and methotrexate. Will continue current steroids but he may need stress dose steroids if his condition deteriorates. Will hold his methotrexate given his current infection. His BP stable at this time (6) HTN (hypertension): Code(s): I10 - Essential (primary) hypertension Status: Chronic Assessment and Plan: Patient's blood pressure was reviewed on 08/30 Blood pressure elevated at times but overall well controlled. On atenolol and Coreg at home but we just resumed the Coreg. He wasn't sure what he takes. (7) CAD (coronary artery disease): Code(s): I25.10 - Atherosclerotic heart disease of [place] coronary artery without angina pectoris Status: Chronic Assessment and Plan: Patient has a history of having 1 cardiac stent and he is on aspirin, Lipitor and beta bi. Continue Coreg. Continue to hold ASA and Lipitor for now. (8) Hyperlipidemia: Code(s): E78.5 - Hyperlipidemia, unspecified Status: Chronic Assessment and Plan: LFTs normal. Atorvastatin remains on hold currently. (9) Bipolar 1 disorder: Code(s): F31.9 - Bipolar disorder, unspecified Status: Chronic Assessment and Plan: As above. (10) DVT prophylaxis: Code(s): Z29.9 - Encounter for prophylactic measures, unspecified Status: Acute Assessment and Plan: Lovenox Subjective Date/time seen: 08/30/20 17:11 Interval history: Date of service 08/30 64yo male with chronic pain syndrome from ch back pain, psoriatic arthritis on immunosuppression and bipolar disorder her for abdominal pain and found to have colitis and portal venous gas. Patient seen this morning. He feels sleepy. Complains of abdomnal pain. +BM yesterday per patient (RN not so sure). He was up walking yesterday in the room. He feels hungry. Exam Narrative: Exam Narrative: AF 97.4
[2020-08-30] MEDS: oxyCODONE/ACETAMINOPHEN (*CRX) 5-325 MG TABLET 1 TABLET PO (17:46)
[2020-08-30] MEDS: oxyCODONE HCL (*CRX) 5 MG TAB IR PO (17:47)
[2020-08-30] MEDS: ENOXAPARIN 40 MG/0.4 ML SYRINGE SUB-Q (17:47)
[2020-08-30] MEDS: DICYCLOMINE HCL INJ 20 MG/2 ML VIAL IM (20:25)
[2020-08-31] VITALS (26 sets, daily range): BP systolic 106–154; BP diastolic 57–98; PULSE 93–127; RESP 16–22; TEMP 35.7–36.3; O2SAT 90–100
[2020-08-31] MEDS: oxyCODONE/ACETAMINOPHEN (*CRX) 5-325 MG TABLET 1 TABLET PO ×2 (00:17→09:06)
[2020-08-31] MEDS: oxyCODONE HCL (*CRX) 5 MG TAB IR PO ×2 (00:19→09:06)
[2020-08-31] MEDS: CYCLOBENZAPRINE HCL 10 MG TABLET PO ×2 (00:23→09:10)
[2020-08-31] MEDS: SODIUM CHLORIDE 0.9% IV 1,000 ML 125 ML IV CONT ×2 (00:40→09:11)
[2020-08-31 05:26] LABS: Basophils Percent Auto 0.1 % (0.2-1.2); Eosinophils Absolute Auto 0.1 K/mm3 (0-0.3); Eosinophils Percent Auto 0.7 % (0-4.4); Hematocrit 35.8 % (42.0-52.0); Hemoglobin 11.8 g/dL (14.0-18.0); Immature Granulocyte Absolute 0.09 K/mm3 (0.00-0.031); Immature Granulocyte Percent A 0.6 % (0-0.5); Mean Corpuscular Hemoglobin 32.5 pg (26-34); Mean Corpuscular Volume 98.6 fl (80-100); Mean Platelet Volume 10.1 fl (7.4-10.4); Monocytes Absolute Auto 1.2 K/mm3 (0.1-0.6); Monocytes Percent Auto 8.2 % (2.6-8.5); Neutrophils Absolute Auto 12.3 K/mm3 (1.3-6.7); Neutrophils Percent Auto 82.4 % (45.5-73.1); Platelet Count Result 249 k/mm3 (150-375); Red Blood Count 3.63 M/mm3 (4.6-6.20); Red Cell Distribution Width 15.4 % (11.5-14.5); White Blood Count 14.9 K/mm3 (4.5-10.0)
[2020-08-31] MEDS: metroNIDAZOLE 500 MG/ISO 100ML 500 MG/100 ML BAG 100 MG IVPB ×3 (05:26→22:19)
[2020-08-31 05:43] LABS: Albumin Level 3.1 g/dL (3.5-5.1); Anion Gap 4 mmol/L (8-16); Blood Urea Nitrogen 15 mg/dL (9-20); Calcium 8.6 mg/dL (8.4-10.2); Carbon Dioxide 32 mmol/L (22-30); Chloride 99 mmol/L (98-107); Estimated CRCL calculation 97 ml/min; Estimated Glomerular Filt Rate > 60; Glucose 95 mg/dL (75-110); Phosphorus 2.8 mg/dL (2.5-4.5); Potassium 3.8 mmol/L (3.4-5.0); Sodium 135 mmol/L (137-145)
[2020-08-31] MEDS: PANTOPRAZOLE SODIUM IV 40 MG VIAL IV PUSH ×2 (09:06→22:19)
[2020-08-31] MEDS: carvediloL 6.25 MG TABLET PO (09:07)
[2020-08-31] MEDS: ARIPiprazole 2 MG TABLET PO (09:08)
[2020-08-31] MEDS: VENLAFAXINE HCL XR 75 MG CAP.ER.24H 225 MG PO (09:08)
[2020-08-31] MEDS: guaiFENesin 12 HR 600 MG TABCR PO (09:08)
[2020-08-31] MEDS: CHOLECALCIFEROL 1,000 UNITS TABLET 2000 UNITS PO (09:08)
[2020-08-31] MEDS: predniSONE 10 MG TABLET PO (09:08)
[2020-08-31] MEDS: FOLIC ACID 1 MG TABLET 3 MG PO (09:08)
[2020-08-31] MEDS: CIPROFLOXACIN 400 MG/D5W 200ML 200 ML 200 MG IVPB ×2 (09:11→22:19)
--- NOTE | 2020-08-31 09:34 | PM.IMPN ---
Progress Note: A&P Assessment and Plan (1) Sepsis: Code(s): A41.9 - Sepsis, unspecified organism Status: Acute Assessment and Plan: Present on admission with tachycardia, tachypnea and leukocytosis. Related to the colitis. More tachypneic and now wheezing. Probably COPD exacerbation but will check CXR to exclude pulmonary edema. Stop IVF. Xopenex started. Could be partially related to poor diaphragmatic excursion from more distended abdomen from ileus. NPO. Check KUB. Consider NG tube. (2) Colitis: Code(s): K52.9 - Noninfective gastroenteritis and colitis, unspecified Status: Acute Assessment and Plan: Patient presented with complaints of abdominal pain. CT scan showing moderate amount of ascending colonic inflammation, wall edema, appearance most consistent with colitis and a small amount of portal venous gas. Abd pain improved initially but now worse today but could be related to ileus and less so colitis. No n/v. Was on clear liquid diet since admission and advanced to full last night because was improving. GI following and appreciate their input. Continue to have the patient up walking in the halls as tolerated. Stool cx ordered. Make NPO now. Continue Flagyl and Cipro. Continue PT/OT. Consider NG tube depending on imaging. (3) Ileus: Code(s): K56.7 - Ileus, unspecified Status: Acute Assessment and Plan: As above. Concern that more distended abdomen causing the SOB. If ileus worse, will place NG tube. If wheezing does not improve, then consider steroids. CXR showing more elevated right hemidiaphragm but seen in the past. Probably related to the ileus. THis is probably causing some of his respiratory symtpoms. NG tube placed. Returned to see patient: he is feeling better and less SOB. Still with expiratory wheezes but better on repeat exam. Still tachycardic. Hold oral meds and change to IV Lopressor, IV steroids and IV narcotics. Discussed with GenSurg who felt best to repeat CT scan giventhe portal gas. (4) COPD (chronic obstructive pulmonary disease): Code(s): J44.9 - Chronic obstructive pulmonary disease, unspecified Status: Chronic Assessment and Plan: Patient hypoxic with narcotics which is probably depressing his respiratory drive. ABG in November showing normal pCO2. We decreased Dilaudid then ultimately stopped it. As above. Continue supplemental oxygen as needed. Continue his inhalers. Continue with Singulair. Continue Xopenex. Consider steroids depending on CXR findings. (5) Anxiety and depression: Code(s): F41.9 - Anxiety disorder, unspecified; F32.9 - Major depressive disorder, single episode, unspecified Status: Chronic Assessment and Plan: Patient with bipolar disorder - major depression with history of suicide and anxiety. He has been resumed on his Abilify and Effexor. Ativan available as needed for anxiety. Some of his symptoms on 08/29 could be related to panic attack. Mood much better controlled. May need to change some meds to IV. (6) Psoriatic arthritis: Code(s): L40.50 - Arthropathic psoriasis, unspecified Status: Chronic Assessment and Plan: Patient is on immunosuppressive agents including steroids and methotrexate. Will continue current steroids but he may need stress dose steroids if his condition deteriorates or his wheezing does not improve with above treatment. Will hold his methotrexate given his current infection. He may need IV steroids regardless. (7) HTN (hypertension): Code(s): I10 - Essential (primary) hypertension Status: Chronic Assessment and Plan: Patient's blood pressure was reviewed on 08/30 Blood pressure overall well controlled. On Coreg at home. Atenolol listed but no longer takes this. (8) CAD (coronary artery disease): Code(s): I25.10 - Atherosclerotic heart disease of [place] coronar
--- NOTE | 2020-08-31 11:36 | WPDGIPROGNO ---
Progress Note: A&P Assessment and Plan (1) Colitis: Code(s): K52.9 - Noninfective gastroenteritis and colitis, unspecified Status: Acute Assessment and Plan: on iv antibiotics reviewed KUB from this morning and evidence of SBO ? ileus keep npo status will ask also surgery to see he says that last colonoscopy maybe ? 30 years ago, at some point will need one as outpatient will check esr and crp tomorrow (2) Ileus: Code(s): K56.7 - Ileus, unspecified Status: Acute Assessment and Plan: no vomiting but abdomen more distended (3) Lower abdominal pain: Code(s): R10.30 - Lower abdominal pain, unspecified Status: Acute (4) COPD (chronic obstructive pulmonary disease): Code(s): J44.9 - Chronic obstructive pulmonary disease, unspecified Status: Chronic Assessment and Plan: also noted he is wheezing more, on medical therapy (5) Leukocytosis: Code(s): D72.829 - Elevated white blood cell count, unspecified Status: Acute Subjective Date/time seen: 08/31/20 11:36 Interval history: still with abdominal pain, also distended abdomen, no bowel movement. Review of Systems Review of Systems: All systems reviewed & are unremarkable except as noted in HPI and below Exam Const: General: no acute distress HENMT: General nose exam: Normal nares present Eyes: General: appearance normal, both eyes and all related structures Neck: Neck: no JVD Resp: Auscultation: rhonchi and wheezes Cardio: Rate: regular rate Rhythm: regular rhythm GI: Inspection: distended GI Palp: Yes Tenderness to palpation present (GI) (ttp in lower abdomen, no rebound) Auscultation: Hypoactive bowel sounds present Skin: General skin exam: normal color Neuro: General: gait normal Speech: normal speech Extrem: General: normal to inspection Psych: Mental Status: mental status grossly normal Objective Data Vital Signs Vital Signs: Vital Signs - 24 hr 08/30/20 12:00 08/30/20 13:34 08/30/20 13:55 Temperature 96.8 F L Pulse Rate 103 H Respiratory Rate 24 H Blood Pressure 133/90 Pulse Oximetry 95 96 90 08/30/20 14:00 08/30/20 16:00 08/30/20 18:00 Temperature 97.4 F L Pulse Rate 102 H 116 H 109 H Respiratory Rate 22 H Blood Pressure 106/80 Pulse Oximetry 96 08/30/20 19:49 08/30/20 20:00 08/30/20 20:17 Temperature 98.3 F Pulse Rate 120 H 120 H 118 H Respiratory Rate 22 H 22 H Blood Pressure 139/83 Pulse Oximetry 96 96 08/30/20 22:00 08/30/20 23:25 08/31/20 00:00 Temperature 97.4 F L Pulse Rate 120 H 92 105 H Respiratory Rate 22 H 22 H Blood Pressure 134/86 Pulse Oximetry 93 93 08/31/20 01:50 08/31/20 04:00 08/31/20 05:34 Temperature 97 F L Pulse Rate 106 H 101 H 103 H Respiratory Rate 18 Blood Pressure 154/98 H Pulse Oximetry 92 08/31/20 07:18 08/31/20 08:43 08/31/20 09:07 Temperature 97.4 F L Pulse Rate 106 H 127 H Respiratory Rate 22 H Blood Pressure 106/57 L Pulse Oximetry 91 94 08/31/20 09:39 Temperature Pulse Rate 121 H Respiratory Rate 22 H Blood Pressure Pulse Oximetry Intake/Output Intake/Output: Intake & Output 08/28/20 08/29/20 08/30/20 08/31/20 23:59 23:59 23:59 23:59 Intake Total 1100 3650 3100 1620 Output Total 2475 1560 300 Balance 1100 1175 1540 1320 Meds/Results Medications: Active Medications Generic Name Dose Route Start Last Admin Trade Name Freq PRN Reason Stop Dose Admin Acetaminophen 650 mg 08/28/20 21:57 Acetaminophen 325 Mg Tablet PO Q4H PRN Mild Pain (1-3) or Fever Hydrocodone Bitart/Acetaminophen 1 tab 08/28/20 21:57 08/30/20 15:38 Hydrocodone/Acetaminophen (*Crx) 5-325 Mg Tablet PO 1 tab Q4H PRN Administration Pain Rated 4-6 Aripiprazole 2 mg 08/29/20 09:00 08/31/20 09:08 Aripiprazole 2 Mg Tablet PO 2 mg DAILY NAI Administration Carvedilol 6.25 mg 08/29/20 09:25 08/31/20 09:07
--- NOTE | 2020-08-31 12:23 | PM.CNGS ---
Assessment and Plan Assessment and plan (1) Colitis: Code(s): K52.9 - Noninfective gastroenteritis and colitis, unspecified Status: Acute Assessment and Plan: CT on admission shows evidence of ascending colitis. I have reviewed the images and discussed the findings with the patient. His condition has not significantly improved in the 3 days since admission, therefore I would like to get a repeat lactic acid level as well as repeat a CT abdomen and pelvis with contrast. There are concerning signs on the initial CT with some scant portal venous gas which could be consistent with full-thickness colitis and high risk for gangrene or perforation. I discussed with patient that if there are any worsening signs on the CT, he could require an exploratory laparotomy. If this is mostly just ileus related to the colitis, he may improve with NG decompression and continued bowel rest. He may require IV nutrition if his symptoms are prolonged much more than a day or 2. (2) Sepsis: Code(s): A41.9 - Sepsis, unspecified organism Status: Acute (3) Ileus: Code(s): K56.7 - Ileus, unspecified Status: Acute Additional Plan Thank you very much for allowing me to aid in the care of this patient. History of Present Illness Consult details Consult date: 08/31/20 Reason for consult: abdominal pain Requesting physician: Nestor Sosa MD Narrative: This is a 64-year-old man who I am asked to see as a consult for abdominal pain and abdominal distention. He began experiencing abdominal pain on 08/27/2020. Pain was located in the right lower abdomen. He has continued to have pain and pain was worsening a few days ago, therefore he presented to the emergency department on 08/28/2020. Workup at that time showed evidence of ascending colitis on CT. This also showed evidence of portal venous gas but there was no pneumatosis or sign of perforation. He was admitted for sepsis and colitis and was treated with bowel rest with IV antibiotics. He has not passed any flatus since being admitted and he has not had a bowel movement since 08/27/2020. He does have a history of chronic narcotic use and states that he has had problems with constipation and has required laxatives in the past to help his bowels move. He denies any fevers or chills. He was having worsening abdominal pain and distension this morning. Obstructive series showed signs of possible ileus and therefore NG tube was placed. He states that since the NG tube was placed, he has noticed some improvement in his pain. Review of Systems Review of Systems: All systems reviewed & are unremarkable except as noted in HPI and below Constitutional: Constitutional: Denies chills and Denies fever(s) Eyes: Eyes: Denies change in vision ENT: Denies hearing loss, Denies neck pain and Denies sore throat Cardiovascular: Cardiovascular: Denies chest pain and Denies dyspnea Respiratory: Respiratory: Denies cough, Denies dyspnea and Denies wheezing Gastrointestinal: Gastrointestinal: Reports as per HPI Genitourinary: Genitourinary: Denies hematuria and Denies dysuria Musculoskeletal: Musculoskeletal: Denies arthralgias, Denies joint swelling and Denies neck pain Allergic/Immunologic: Allergic/Immunologic: Denies wheezing [facility] Past Medical History Medical History Anxiety and depression Bipolar 1 disorder CAD (coronary artery disease) 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 Repeat evaluation and was in 2017. Chronic back pain COPD (chronic obstructive pulmonary disease) Depression History of MRSA infection History of stomach ulcers History of suicide attempt multiple times HTN (hypertension) Hyperlipidemia Ileus Leukocytosis Lower abdominal pain MRSA infection Psoriatic arthritis Surgical History Surgical History H/O h
[2020-08-31] MEDS: METOPROLOL TARTRATE INJ 5 MG/5 ML VIAL IV PUSH ×2 (14:28→18:30)
[2020-08-31] MEDS: MORPHINE SULFATE (*CRX) 2 MG/ML INJ 1 MG IV PUSH ×2 (14:28→19:58)
[2020-08-31] MEDS: methylPREDNISolone SOD SUCC 40 MG VIAL IV PUSH ×2 (14:28→22:19)
[2020-08-31 15:30] LABS: Lactic Acid Reflex 0.5 mmol/L (0.7-2.1)
[2020-08-31] MEDS: ENOXAPARIN 40 MG/0.4 ML SYRINGE SUB-Q (18:31)
[2020-08-31] MEDS: KCL 20 MEQ/D5/0.9% SOD CHL 1,000 ML 70 ML IV CONT (19:58)
[2020-08-31] MEDS: LORazepam INJ (*CRX) 2 MG/ML VIAL 0.5 MG IV PUSH (22:20)
[2020-09-01] VITALS (18 sets, daily range): BP systolic 127–162; BP diastolic 74–94; PULSE 89–134; RESP 18–22; TEMP 36–36.9; O2SAT 92–99
[2020-09-01] MEDS: MORPHINE SULFATE (*CRX) 2 MG/ML INJ 1 MG IV PUSH ×4 (01:04→21:37)
[2020-09-01] MEDS: METOPROLOL TARTRATE INJ 5 MG/5 ML VIAL IV PUSH ×4 (01:05→17:18)
[2020-09-01 04:45] LABS: Hematocrit 36.4 % (42.0-52.0); Mean Corpuscular Hemoglobin 32.6 pg (26-34); Mean Corpuscular Volume 98.9 fl (80-100); Mean Platelet Volume 9.9 fl (7.4-10.4); Platelet Count Result 285 k/mm3 (150-375); Red Blood Count 3.68 M/mm3 (4.6-6.20); White Blood Count 9.6 K/mm3 (4.5-10.0)
[2020-09-01 05:05] LABS: Anion Gap 2 mmol/L (8-16); Blood Urea Nitrogen 16 mg/dL (9-20); Calcium 8.3 mg/dL (8.4-10.2); Carbon Dioxide 34 mmol/L (22-30); Chloride 98 mmol/L (98-107); Estimated CRCL calculation 96 ml/min; Estimated Glomerular Filt Rate > 60; Glucose 166 mg/dL (75-110); Potassium 3.9 mmol/L (3.4-5.0); Sodium 134 mmol/L (137-145)
[2020-09-01 05:16] LABS: CRP 15.7 mg/dL (<1.0)
[2020-09-01 05:24] LABS: Erythrocyte Sedimentation Rate 85 mm/hr (0-20)
[2020-09-01] MEDS: methylPREDNISolone SOD SUCC 40 MG VIAL IV PUSH ×3 (05:27→20:56)
[2020-09-01] MEDS: metroNIDAZOLE 500 MG/ISO 100ML 500 MG/100 ML BAG 100 MG IVPB ×3 (05:27→20:59)
[2020-09-01] MEDS: CIPROFLOXACIN 400 MG/D5W 200ML 200 ML 200 MG IVPB ×2 (07:56→20:52)
[2020-09-01] MEDS: PANTOPRAZOLE SODIUM IV 40 MG VIAL IV PUSH ×2 (07:57→20:56)
[2020-09-01] MEDS: LORazepam INJ (*CRX) 2 MG/ML VIAL 0.5 MG IV PUSH ×3 (07:57→21:41)
--- NOTE | 2020-09-01 10:43 | PC.NURSE ---
This patient, Israel Plascencia ., was transferred to [facility] on 09/01/20 at 1030. Personal belongings sent with patient. Report given to Bri VERONICA. Appropriate documentation sent with patient.
--- NOTE | 2020-09-01 10:45 | PC.NURSE ---
Received patient from IMU via wheelchair with IMU staff. Patient settled in room. at bedside. Patient very anxious and states he needs his inhaler. states his inhaler was brought in a few days ago but he has not received it. Called respiratory therapy and they are going to call me back regarding inhaler. Patient in chair using electric razor. No c/o pain.
--- NOTE | 2020-09-01 11:45 | PM.PNGS ---
Progress Note: A&P Assessment and Plan (1) Lower abdominal pain: Code(s): R10.30 - Lower abdominal pain, unspecified Status: Resolved Assessment and Plan: Will remove NG and start clear liquids. There does not seem to be any more concern for bowel obstruction or perforation. Will sign off. (2) Ileus: Code(s): K56.7 - Ileus, unspecified Status: Resolved (3) Colitis: Code(s): K52.9 - Noninfective gastroenteritis and colitis, unspecified Status: Acute (4) Sepsis: Code(s): A41.9 - Sepsis, unspecified organism Status: Acute Subjective Subjective Date/Time Seen: 09/01/20 11:45 Bowels moving now. Pain improved. No fevers. Exam GI: Inspection: non-distended and obesity GI Palp: Yes Soft to palpation, No Tenderness to palpation present (GI) and No Guarding due to palpation present (GI) Percussion: Yes normal to percussion Auscultation: normal bowel sounds Objective Data Vital Signs Vital Signs: Vital Signs - 24 hr 08/31/20 12:00 08/31/20 12:26 08/31/20 14:00 Temperature 36.1 C L Pulse Rate 107 H 105 H 101 H Respiratory Rate 22 H Blood Pressure 142/82 H Pulse Oximetry 90 08/31/20 14:28 08/31/20 14:40 08/31/20 14:48 Temperature Pulse Rate 116 H 110 H 93 Respiratory Rate 18 18 Blood Pressure Pulse Oximetry 08/31/20 16:00 08/31/20 16:53 08/31/20 18:00 Temperature 35.9 C L Pulse Rate 98 93 107 H Respiratory Rate 16 Blood Pressure 151/88 H Pulse Oximetry 100 08/31/20 18:30 08/31/20 19:22 08/31/20 20:00 Temperature 35.7 C L Pulse Rate 107 H 97 102 H Respiratory Rate 20 20 Blood Pressure 149/81 H Pulse Oximetry 93 93 08/31/20 21:10 08/31/20 21:17 08/31/20 22:00 Temperature Pulse Rate 110 H 109 H 108 H Respiratory Rate 16 16 Blood Pressure Pulse Oximetry 92 08/31/20 23:50 09/01/20 00:00 09/01/20 01:05 Temperature 36.3 C L Pulse Rate 102 H 105 H 108 H Respiratory Rate 18 18 Blood Pressure 154/94 H Pulse Oximetry 92 92 09/01/20 02:00 09/01/20 04:00 09/01/20 05:27 Temperature 36.0 C L Pulse Rate 97 104 H 113 H Respiratory Rate 20 Blood Pressure 139/83 Pulse Oximetry 92 09/01/20 06:00 09/01/20 07:14 09/01/20 08:00 Temperature 36.4 C L Pulse Rate 89 91 100 Respiratory Rate 18 Blood Pressure 127/74 Pulse Oximetry 99 09/01/20 08:14 09/01/20 08:20 Temperature Pulse Rate 98 105 H Respiratory Rate 18 20 Blood Pressure Pulse Oximetry 95 Intake/Output Intake/Output: Intake & Output 08/29/20 08/30/20 08/31/20 09/01/20 23:59 23:59 23:59 23:59 Intake Total 3650 3100 1910 500 Output Total 2475 1560 1200 775 Balance 1175 1540 710 -838 Meds/Results Medications: Active Medications Generic Name Dose Route Start Last Admin Trade Name Freq PRN Reason Stop Dose Admin Acetaminophen 650 mg 08/28/20 21:57 Acetaminophen 325 Mg Tablet PO Q4H PRN Mild Pain (1-3) or Fever Aripiprazole 2 mg 08/29/20 09:00 08/31/20 09:08 Aripiprazole 2 Mg Tablet PO 2 mg DAILY NAI Administration Enoxaparin Sodium 40 mg 08/31/20 18:00 08/31/20 18:31 Enoxaparin 40 Mg/0.4 Ml Syringe SUB-Q 40 mg DAILY@1800 NAI Administration Ciprofloxacin/Dextrose 200 mls @ 200 mls/hr 08/29/20 09:00 09/01/20 08:56 Cipro 400 Mg/D5w 200 Ml IVPB Infused Q12HR NAI Infusion Metronidazole 500 mg in 100 mls @ 100 mls/hr 08/29/20 06:00 09/01/20 06:27 Flagyl 500 Mg/Iso Soln 100 Ml IVPB Infused Q8H NAI Infusion Potassium Chloride/Dextrose/Sod Cl 1,000 mls @ 70 mls/hr 08/31/20 20:00 08/31/20 19:58 Kcl 20 Meq/D5/0.9% Sod Chl IV CONT 70 mls/hr .[id number] NAI Administration Levalbuterol HCl 1.25 mg 08/31/20 14:00 09/01/20 08:12 Levalbuterol Neb 1.25 Mg/0.5 Ml INHALATION 1.25 mg Q6HRT NAI Administration Lorazepam 0.5 mg 08/29/20 00:31 09/01/20 07:57 Lorazepam Inj (*Crx) 2 Mg/Ml Vial IV PUSH 0.5 mg Q6H PRN
[2020-09-01] MEDS: FUROSEMIDE INJ 40 MG/4 ML VIAL 20 MG IV PUSH (12:55)
--- NOTE | 2020-09-01 13:05 | WPDGIPROGNO ---
Progress Note: A&P Assessment and Plan (1) Colitis: Code(s): K52.9 - Noninfective gastroenteritis and colitis, unspecified Status: Acute Assessment and Plan: CT scan was done again yesterday with persistent wall thickening at the cecum which could be related to focal colitis although differential would include malignancy and mild dilation of the mid to distal small bowel extending to the ileocecal valve without discrete obstructing small bowel lesion. Clinically doing better, ok to start liquid diet esr and crp elevated c/w colitis, continue with iv antibiotics continue supportive care eventually will need colonoscopy, ~ 4-5 weeks (2) Lower abdominal pain: Code(s): R10.30 - Lower abdominal pain, unspecified Status: Resolved Assessment and Plan: improving (3) Sepsis: Code(s): A41.9 - Sepsis, unspecified organism Status: Acute Assessment and Plan: lactic acid and WBC normal today (4) COPD (chronic obstructive pulmonary disease): Code(s): J44.9 - Chronic obstructive pulmonary disease, unspecified Status: Chronic Assessment and Plan: he is having more SOB, by primary team (5) Ileus: Code(s): K56.7 - Ileus, unspecified Status: Resolved Subjective Date/time seen: 09/01/20 13:05 Interval history: started having loose stools with less abdominal pain today, ngt removed and no vomiting. His main complain today is more shortness of breath and copd exacerbation. Review of Systems Review of Systems: All systems reviewed & are unremarkable except as noted in HPI and below Exam Const: General: comfortable and no acute distress HENMT: General nose exam: Normal nares present Eyes: General: appearance normal, both eyes and all related structures Neck: Neck: no JVD Resp: Auscultation: rhonchi, wheezes and diminished lung sounds Cardio: Rate: regular rate Rhythm: regular rhythm GI: Inspection: non-distended GI Palp: Yes Soft to palpation, Yes Tenderness to palpation present (GI) (less tender today, no rebound- overall abdominal exam improved) and No Guarding due to palpation present (GI) Skin: General skin exam: normal color Neuro: Cognition (Neuro): normal cognition Speech: normal speech Extrem: General: normal to inspection Psych: Mental Status: mental status grossly normal Objective Data Vital Signs Vital Signs: Vital Signs - 24 hr 08/31/20 14:00 08/31/20 14:28 08/31/20 14:40 Temperature Pulse Rate 101 H 116 H 110 H Respiratory Rate 18 Blood Pressure Pulse Oximetry 08/31/20 14:48 08/31/20 16:00 08/31/20 16:53 Temperature 96.7 F L Pulse Rate 93 98 93 Respiratory Rate 18 16 Blood Pressure 151/88 H Pulse Oximetry 100 08/31/20 18:00 08/31/20 18:30 08/31/20 19:22 Temperature 96.3 F L Pulse Rate 107 H 107 H 97 Respiratory Rate 20 Blood Pressure 149/81 H Pulse Oximetry 93 08/31/20 20:00 08/31/20 21:10 08/31/20 21:17 Temperature Pulse Rate 102 H 110 H 109 H Respiratory Rate 20 16 16 Blood Pressure Pulse Oximetry 93 92 08/31/20 22:00 08/31/20 23:50 09/01/20 00:00 Temperature 97.3 F L Pulse Rate 108 H 102 H 105 H Respiratory Rate 18 18 Blood Pressure 154/94 H Pulse Oximetry 92 92 09/01/20 01:05 09/01/20 02:00 09/01/20 04:00 Temperature 96.8 F L Pulse Rate 108 H 97 104 H Respiratory Rate 20 Blood Pressure 139/83 Pulse Oximetry 92 09/01/20 05:27 09/01/20 06:00 09/01/20 07:14 Temperature 97.5 F L Pulse Rate 113 H 89 91 Respiratory Rate 18 Blood Pressure 127/74 Pulse Oximetry 99 09/01/20 08:00 09/01/20 08:14 09/01/20 08:20 Temperature Pulse Rate 100 98 105 H Respiratory Rate 18 20 Blood Pressure Pulse Oximetry 95 09/01/20 11:52 09/01/20 12:55 Temperature Pulse Rate 121 H 124 H Respiratory Rate 21 H Blood Pressure Pulse Oximetry 93 Intake/Output Intake/Output: Intake & Output 08/29/2008/13
[2020-09-01] MEDS: guaiFENesin 12 HR 600 MG TABCR 1200 MG PO ×2 (13:10→20:57)
--- NOTE | 2020-09-01 16:34 | PM.IMPN ---
Progress Note: A&P Assessment and Plan (1) Sepsis: Code(s): A41.9 - Sepsis, unspecified organism Status: Acute Assessment and Plan: Present on admission with tachycardia, tachypnea and leukocytosis. Related to the colitis. More tachypneic and now wheezing. Probably COPD exacerbation but Stop IVF and dose of IV lasix.. Xopenex started. Could be partially related to poor diaphragmatic excursion from more distended abdomen from ileus. but that has improved, check bnp and possible echo 09/02 (2) Colitis: Code(s): K52.9 - Noninfective gastroenteritis and colitis, unspecified Status: Acute Assessment and Plan: Patient presented with complaints of abdominal pain. CT scan showing moderate amount of ascending colonic inflammation, wall edema, appearance most consistent with colitis and a small amount of portal venous gas. Abd pain improved initially but now worse today but could be related to ileus and less so colitis. No n/v. Was on clear liquid diet since admission and advanced to full last night because was improving. Continue to have the patient up walking in the halls as tolerated. Stool cx ordered. Make NPO now. Continue Flagyl and Cipro. Continue PT/OT. D/C NG this am (3) Ileus: Code(s): K56.7 - Ileus, unspecified Status: Resolved Assessment and Plan: As above. Concern that more distended abdomen causing the SOB. CXR 08/31 showing more elevated right hemidiaphragm but seen in the past. Probably related to the ileus. THis is probably causing some of his respiratory symtpoms. NG tube placed last pm and removed this am (4) COPD (chronic obstructive pulmonary disease): Code(s): J44.9 - Chronic obstructive pulmonary disease, unspecified Status: Chronic Assessment and Plan: Patient hypoxic with narcotics which is probably depressing his respiratory drive. ABG in November showing normal pCO2. We decreased Dilaudid then ultimately stopped it. As above. Continue supplemental oxygen as needed. Continue his inhalers. Continue with Singulair. Continue Xopenex. IV steroids added too (5) Anxiety and depression: Code(s): F41.9 - Anxiety disorder, unspecified; F32.9 - Major depressive disorder, single episode, unspecified Status: Chronic Assessment and Plan: Patient with bipolar disorder - major depression with history of suicide and anxiety. He has been resumed on his Abilify and Effexor. Ativan available as needed for anxiety. Some of his symptoms on 08/29 could be related to panic attack. Mood much better controlled. May need to change some meds to IV. (6) Psoriatic arthritis: Code(s): L40.50 - Arthropathic psoriasis, unspecified Status: Chronic Assessment and Plan: Patient is on immunosuppressive agents including steroids and methotrexate. Will continue current steroids but he may need stress dose steroids if his condition deteriorates or his wheezing does not improve with above treatment. Will hold his methotrexate given his current infection. He may need IV steroids regardless. (7) HTN (hypertension): Code(s): I10 - Essential (primary) hypertension Status: Chronic Assessment and Plan: Patient's blood pressure was reviewed on 08/30 Blood pressure overall well controlled. On Coreg at home. Atenolol listed but no longer takes this. (8) CAD (coronary artery disease): Code(s): I25.10 - Atherosclerotic heart disease of [place] coronary artery without angina pectoris Status: Chronic Assessment and Plan: Patient has a history of having 1 cardiac stent and he is on aspirin, Lipitor and beta bi. Continue Coreg. Continue to hold ASA and Lipitor for now. May need IV metoprolol. (9) Hyperlipidemia: Code(s): E78.5 - Hyperlipidemia, unspecified Status: Chronic Assessment and Plan: LFTs normal. Atorvastatin remains o
[2020-09-01] MEDS: ENOXAPARIN 40 MG/0.4 ML SYRINGE SUB-Q (17:18)
[2020-09-02] VITALS (17 sets, daily range): BP systolic 121–149; BP diastolic 70–89; PULSE 63–115; RESP 16–20; TEMP 36.3–37.2; O2SAT 91–96
--- NOTE | 2020-09-02 | ECHO_ITS ---
Patient Info Name: Israel Plascencia Age: 64 years : 1955 Gender: Male Ht: 67 in Wt: 190 lbs BSA: 2.04 m2 HR: 103 bpm BP: 165 / 75 mmHg Heart Rhythm: Sinus Rhythm Technical Quality: Good Exam Date: 09/02/2020 2:07 PM Exam Location: [facility] Patient Status: Inpatient Admit Date: 08/30/2020 Staff Ordering Physician: Rob Roberson MD [employer] Officer: Ambrosio Brooks, ROLAND, RT Attending Provider: Nestor Sosa MD Referring Physician: Karol UPTON; Exam Type: CA echo doppler color flow Study Info Indications R06.02 - Shortness of breath Complete two-dimensional, color flow and Doppler transthoracic echocardiogram is performed. Strain analysis performed. Summary 1. Complete two-dimensional, color flow and Doppler transthoracic echocardiogram is performed. 2. Left ventricular systolic function is mildly reduced, estimated at 50%. 3. There is mildly increased left ventricular wall thickness. 4. Left ventricular septal wall motion is abnormal with septal motion related to bundle branch block. 5. The left ventricular diastolic function is grade I diastolic dysfunction. 6. Left atrial chamber dimension is mildly enlarged. 7. There is trace mitral valve regurgitation. 8. There is trace tricuspid valve regurgitation. 9. Unable to estimate PA systolic pressure due to poor spectral resolution of tricuspid regurgitant jet velocity. Left Ventricle Left ventricular chamber dimension is normal. Left ventricular systolic function is mildly reduced, estimated at 50%. There is mildly increased left ventricular wall thickness. Left ventricular septal wall motion is abnormal with septal motion related to bundle branch block. The left ventricular diastolic function is grade I diastolic dysfunction. Global longitudinal strain is mildly elevated at -14 %. Right Ventricle Right ventricular chamber dimension is normal. Right ventricular systolic function is normal. Left Atria Left atrial chamber dimension is mildly enlarged. Right Atria Right atrial chamber dimension is normal. Aortic Valve The aortic valve is not well visualized. There is no aortic valve stenosis. There is trace aortic valve regurgitation. Pulmonic Valve The pulmonic valve is not well visualized. Mitral Valve The mitral valve has normal leaflets. There is trace mitral valve regurgitation. The mitral valve annulus is mildly calcified. Tricuspid Valve The tricuspid valve leaflets are normal. There is trace tricuspid valve regurgitation. Unable to estimate PA systolic pressure due to poor spectral resolution of tricuspid regurgitant jet velocity. Pericardium/Pleural The pericardium appears normal. There is no pericardial effusion. Inferior Vena Cava Inferior vena cava is not well visualized. Aorta The aortic root size at the sinus of Valsalva is normal. Left Ventricular Outflow Tract Name Value Normal LVOT 2D LVOT Diameter 2.2 cm LVOT Doppler LVOT Peak Gradient 4 mmHg LVOT Mean Gradient 2 mmHg LVOT VTI 19 cm
[2020-09-02] MEDS: METOPROLOL TARTRATE INJ 5 MG/5 ML VIAL IV PUSH ×2 (00:58→06:39)
[2020-09-02 06:18] LABS: Alanine Aminotransferase 20 U/L (4-50); Alkaline Phosphatase 74 U/L (38-126); Anion Gap 2 mmol/L (8-16); Aspartate Amino Transferase 29 U/L (17-59); Bilirubin,Total 0.2 mg/dL (0.2-1.3); Blood Urea Nitrogen 15 mg/dL (9-20); Calcium 8.4 mg/dL (8.4-10.2); Carbon Dioxide 36 mmol/L (22-30); Chloride 101 mmol/L (98-107); Estimated CRCL calculation 96 ml/min; Estimated Glomerular Filt Rate > 60; Glucose 150 mg/dL (75-110); Potassium 3.8 mmol/L (3.4-5.0); Sodium 139 mmol/L (137-145)
[2020-09-02 06:21] LABS: Basophils Percent Auto 0.1 % (0.2-1.2); Hematocrit 34.8 % (42.0-52.0); Hemoglobin 11.5 g/dL (14.0-18.0); Immature Granulocyte Absolute 0.06 K/mm3 (0.00-0.031); Immature Granulocyte Percent A 0.4 % (0-0.5); Lymphocytes Absolute Auto 0.74 K/mm3 (0.9-3.2); Lymphocytes Percent Auto 5.4 % (18.3-44.2); Mean Corpuscular Volume 99.7 fl (80-100); Mean Platelet Volume 9.9 fl (7.4-10.4); Monocytes Percent Auto 7.4 % (2.6-8.5); Neutrophils Absolute Auto 11.9 K/mm3 (1.3-6.7); Neutrophils Percent Auto 86.7 % (45.5-73.1); Platelet Count Result 263 k/mm3 (150-375); Red Blood Count 3.49 M/mm3 (4.6-6.20); Red Cell Distribution Width 15.6 % (11.5-14.5); White Blood Count 13.7 K/mm3 (4.5-10.0)
[2020-09-02 06:27] LABS: NT Pro B Type Natriuretic Pept 1840 PG/ML (5-100)
[2020-09-02] MEDS: methylPREDNISolone SOD SUCC 40 MG VIAL IV PUSH ×2 (06:39→18:08)
[2020-09-02] MEDS: metroNIDAZOLE 500 MG/ISO 100ML 500 MG/100 ML BAG 100 MG IVPB ×3 (06:39→23:49)
[2020-09-02] MEDS: carvediloL 12.5 MG TABLET PO ×2 (08:48→20:04)
[2020-09-02] MEDS: ARIPiprazole 2 MG TABLET PO (08:48)
[2020-09-02] MEDS: PANTOPRAZOLE SODIUM IV 40 MG VIAL IV PUSH ×2 (08:50→20:03)
[2020-09-02] MEDS: VENLAFAXINE HCL XR 75 MG CAP.ER.24H 225 MG PO (08:50)
[2020-09-02] MEDS: CIPROFLOXACIN 400 MG/D5W 200ML 200 ML 200 MG IVPB ×2 (08:50→20:08)
[2020-09-02] MEDS: FUROSEMIDE INJ 40 MG/4 ML VIAL IV PUSH (08:50)
[2020-09-02] MEDS: MORPHINE SULFATE (*CRX) 2 MG/ML INJ 1 MG IV PUSH (09:15)
--- NOTE | 2020-09-02 09:18 | WPDGIPROGNO ---
Progress Note: A&P Assessment and Plan (1) Colitis: Code(s): K52.9 - Noninfective gastroenteritis and colitis, unspecified Status: Acute Assessment and Plan: improving, less tender will advance diet as tolerated continue with abx stool samples pending colonoscopy in few more weeks after acute infection resolves (2) Sepsis: Code(s): A41.9 - Sepsis, unspecified organism Status: Acute Assessment and Plan: improved, better he is partially immunocompromised, on medication for RA (holding MTX) (3) Lower abdominal pain: Code(s): R10.30 - Lower abdominal pain, unspecified Status: Resolved (4) Leukocytosis: Code(s): D72.829 - Elevated white blood cell count, unspecified Status: Acute Assessment and Plan: also started on steroids because copd exacerbation which probably affected wbc (5) COPD (chronic obstructive pulmonary disease): Code(s): J44.9 - Chronic obstructive pulmonary disease, unspecified Status: Chronic Assessment and Plan: on treatment, also atelectasis (6) Psoriatic arthritis: Code(s): L40.50 - Arthropathic psoriasis, unspecified Status: Chronic Subjective Date/time seen: 09/02/20 09:18 Interval history: he is breathing better today, more comfortable. Also less abdominal distension, no nausea or vomiting. Review of Systems Review of Systems: All systems reviewed & are unremarkable except as noted in HPI and below Exam Const: General: comfortable Other: no distress HENMT: General nose exam: Normal nares present Eyes: General: appearance normal, both eyes and all related structures Neck: Neck: no JVD Resp: Auscultation: wheezes Other: respiratory status has improved today, more clear Cardio: Rate: regular rate Rhythm: regular rhythm GI: Inspection: non-distended GI Palp: Yes Soft to palpation, Yes Tenderness to palpation present (GI) (only minimally tender, no rebound or guarding, overall is better) and No Guarding due to palpation present (GI) Skin: General skin exam: normal color Neuro: Cognition (Neuro): normal cognition Speech: normal speech Extrem: General: normal to inspection Psych: Mental Status: mental status grossly normal Objective Data Vital Signs Vital Signs: Vital Signs - 24 hr 09/01/20 11:52 09/01/20 12:55 09/01/20 13:16 Temperature 97.8 F Pulse Rate 121 H 124 H 134 H Respiratory Rate 21 H 22 H Blood Pressure 162/94 H Pulse Oximetry 93 95 09/01/20 17:18 09/01/20 22:00 09/01/20 22:52 Temperature 98.5 F Pulse Rate 100 114 H 101 H Respiratory Rate 18 20 Blood Pressure 147/87 H Pulse Oximetry 96 09/01/20 22:54 09/01/20 23:05 09/02/20 00:58 Temperature Pulse Rate 101 H 100 107 H Respiratory Rate 20 Blood Pressure Pulse Oximetry 95 09/02/20 01:06 09/02/20 02:09 09/02/20 06:00 Temperature 97.5 F L Pulse Rate 95 63 Respiratory Rate 20 16 Blood Pressure 143/87 H 121/70 Pulse Oximetry 93 94 09/02/20 06:39 09/02/20 07:40 09/02/20 07:57 Temperature Pulse Rate 63 84 92 Respiratory Rate 20 20 Blood Pressure Pulse Oximetry 91 09/02/20 08:48 Temperature Pulse Rate 115 H Respiratory Rate Blood Pressure Pulse Oximetry Intake/Output Intake/Output: Intake & Output 08/30/20 08/31/20 09/01/20 09/02/20 23:59 23:59 23:59 23:59 Intake Total 3100 1910 3980 960 Output Total 1560 1200 1825 600 Balance 8821 795 8591 360 Meds/Results Medications: Active Medications Generic Name Dose Route Start Last Admin Trade Name Freq PRN Reason Stop Dose Admin Acetaminophen 650 mg 08/28/20 21:57 Acetaminophen 325 Mg Tablet PO Q4H PRN Mild Pain (1-3) or Fever Aripiprazole 2 mg 08/29/20 09:00 09/02/20 08:48 Aripiprazole 2 Mg Tablet PO 2 mg DAILY NAI Administration Carvedilol 12.5 mg 09/02/20 09:00 09/02/20 08:48 Carvedilol 12.5 Mg Tablet PO 12.5 mg Q12HR NAI Admini
[2020-09-02] MEDS: guaiFENesin 12 HR 600 MG TABCR 1200 MG PO ×2 (11:24→20:03)
[2020-09-02] MEDS: oxyCODONE/ACETAMINOPHEN (*CRX) 5-325 MG TABLET 1 TABLET PO ×4 (11:24→23:48)
--- NOTE | 2020-09-02 13:03 | PM.IMPN ---
Progress Note: A&P Assessment and Plan (1) Sepsis: Code(s): A41.9 - Sepsis, unspecified organism Status: Acute Assessment and Plan: Present on admission with tachycardia, tachypnea and leukocytosis. Related to the colitis. More tachypneic and now wheezing. Probably COPD exacerbation but Stopped IVF and dose of IV lasix again today . Xopenex started. Could be partially related to poor diaphragmatic excursion from more distended abdomen from ileus. but that has improved, bnp elevated at 1800 and repeat echo today, last one was 07/01 with EF of 35% (2) Colitis: Code(s): K52.9 - Noninfective gastroenteritis and colitis, unspecified Status: Acute Assessment and Plan: Patient presented with complaints of abdominal pain. CT scan showing moderate amount of ascending colonic inflammation, wall edema, appearance most consistent with colitis and a small amount of portal venous gas. Abd pain improved initially and better today No n/v. Was on clear liquid diet since admission and advanced to full 08/31 pm and now reg. Continue to have the patient up walking in the halls as tolerated. Stool cx orded. Continue Flagyl and Cipro. Continue PT/OT. D/Arias NG 09/01 am (3) Ileus: Code(s): K56.7 - Ileus, unspecified Status: Resolved Assessment and Plan: As above. Concern that more distended abdomen causing the SOB. CXR 08/31 showing more elevated right hemidiaphragm but seen in the past. Probably related to the ileus. THis is probably causing some of his respiratory symtpoms. NG tube placed last 08/31 pm and removed 09/01 am (4) COPD (chronic obstructive pulmonary disease): Code(s): J44.9 - Chronic obstructive pulmonary disease, unspecified Status: Chronic Assessment and Plan: Patient hypoxic with narcotics which is probably depressing his respiratory drive. ABG in November showing normal pCO2. We decreased Dilaudid then ultimately stopped it. As above. Continue supplemental oxygen as needed. Continue his inhalers. Continue with Singulair. Continue Xopenex. IV steroids added and start taper to q12H (5) Anxiety and depression: Code(s): F41.9 - Anxiety disorder, unspecified; F32.9 - Major depressive disorder, single episode, unspecified Status: Chronic Assessment and Plan: Patient with bipolar disorder - major depression with history of suicide and anxiety. He has been resumed on his Abilify and Effexor. Ativan available as needed for anxiety. Some of his symptoms on 08/29 could be related to panic attack. Mood much better controlled. (6) Psoriatic arthritis: Code(s): L40.50 - Arthropathic psoriasis, unspecified Status: Chronic Assessment and Plan: Patient is on immunosuppressive agents including steroids and methotrexate. increased for his respiratory status which will function as stress dose also. Will hold his methotrexate given his current infection. (7) HTN (hypertension): Code(s): I10 - Essential (primary) hypertension Status: Chronic Assessment and Plan: Patient's blood pressure was reviewed on 09/02 Blood pressure overall well controlled. On Coreg at home and will increase to 12.5 bid and d/c other beta bi (8) CAD (coronary artery disease): Code(s): I25.10 - Atherosclerotic heart disease of [place] coronary artery without angina pectoris Status: Chronic Assessment and Plan: Patient has a history of having 1 cardiac stent and he is on aspirin, Lipitor and beta bi. Continue Coreg. Restart ASA and Lipitor . May need IV metoprolol. (9) Hyperlipidemia: Code(s): E78.5 - Hyperlipidemia, unspecified Status: Chronic Assessment and Plan: LFTs normal. Atorvastatin restart (10) Bipolar 1 disorder: Code(s): F31.9 - Bipolar disorder, unspecified Status: Chronic Assessment and Plan: r
[2020-09-02] MEDS: ENOXAPARIN 40 MG/0.4 ML SYRINGE SUB-Q (18:08)
[2020-09-02] MEDS: LORazepam INJ (*CRX) 2 MG/ML VIAL 0.5 MG IV PUSH (23:48)
[2020-09-03] VITALS (13 sets, daily range): BP systolic 144–171; BP diastolic 82–98; PULSE 79–115; RESP 16–22; TEMP 36–36.8; O2SAT 92–97
[2020-09-03] MEDS: metroNIDAZOLE 500 MG/ISO 100ML 500 MG/100 ML BAG 100 MG IVPB ×2 (04:42→13:34)
[2020-09-03] MEDS: methylPREDNISolone SOD SUCC 40 MG VIAL IV PUSH (04:42)
[2020-09-03] MEDS: oxyCODONE/ACETAMINOPHEN (*CRX) 5-325 MG TABLET 1 TABLET PO ×3 (04:43→13:34)
[2020-09-03 05:36] LABS: Basophils Percent Auto 0.1 % (0.2-1.2); Hemoglobin 11.9 g/dL (14.0-18.0); Immature Granulocyte Percent A 0.7 % (0-0.5); Lymphocytes Absolute Auto 1.04 K/mm3 (0.9-3.2); Lymphocytes Percent Auto 7.1 % (18.3-44.2); Mean Corpuscular HGB Conc 33.1 g/dl (32-36); Mean Corpuscular Volume 96.8 fl (80-100); Mean Platelet Volume 9.7 fl (7.4-10.4); Monocytes Absolute Auto 1.4 K/mm3 (0.1-0.6); Monocytes Percent Auto 9.5 % (2.6-8.5); Neutrophils Absolute Auto 12.1 K/mm3 (1.3-6.7); Neutrophils Percent Auto 82.6 % (45.5-73.1); Platelet Count Result 281 k/mm3 (150-375); Red Blood Count 3.72 M/mm3 (4.6-6.20); Red Cell Distribution Width 15.3 % (11.5-14.5); White Blood Count 14.7 K/mm3 (4.5-10.0)
[2020-09-03 05:53] LABS: Anion Gap 3 mmol/L (8-16); Blood Urea Nitrogen 18 mg/dL (9-20); Calcium 8.3 mg/dL (8.4-10.2); Carbon Dioxide 37 mmol/L (22-30); Chloride 95 mmol/L (98-107); Estimated CRCL calculation 99 ml/min; Estimated Glomerular Filt Rate > 60; Glucose 106 mg/dL (75-110); Potassium 3.6 mmol/L (3.4-5.0); Sodium 135 mmol/L (137-145)
[2020-09-03] MEDS: ATORVASTATIN 20 MG TABLET PO (09:01)
[2020-09-03] MEDS: guaiFENesin 12 HR 600 MG TABCR 1200 MG PO (09:01)
[2020-09-03] MEDS: ASPIRIN 81 MG ENTERIC TABLET PO (09:01)
[2020-09-03] MEDS: ARIPiprazole 2 MG TABLET PO (09:02)
[2020-09-03] MEDS: VENLAFAXINE HCL XR 75 MG CAP.ER.24H 225 MG PO (09:02)
[2020-09-03] MEDS: carvediloL 12.5 MG TABLET PO ×2 (09:02→14:37)
[2020-09-03] MEDS: PANTOPRAZOLE SODIUM IV 40 MG VIAL IV PUSH (09:03)
[2020-09-03] MEDS: CIPROFLOXACIN 400 MG/D5W 200ML 200 ML 200 MG IVPB (09:10)
--- NOTE | 2020-09-03 09:12 | WPDGIPROGNO ---
Progress Note: A&P Assessment and Plan (1) Colitis: Code(s): K52.9 - Noninfective gastroenteritis and colitis, unspecified Status: Acute Assessment and Plan: denies any more pain stool and blood cultures so far negative, had + WBC in stools tolerating diet ok to go home soon, 7 more days of oral antibiotics mild leukocytosis probably also due to use of steroids (copd) colonoscopy in 4-5 weeks as outpatient (2) Sepsis: Code(s): A41.9 - Sepsis, unspecified organism Status: Acute Assessment and Plan: resolved but he is partially immunocompromised, on medication for RA (holding MTX) (3) Lower abdominal pain: Code(s): R10.30 - Lower abdominal pain, unspecified Status: Resolved Assessment and Plan: from colitis, much better (4) Leukocytosis: Code(s): D72.829 - Elevated white blood cell count, unspecified Status: Acute (5) COPD (chronic obstructive pulmonary disease): Code(s): J44.9 - Chronic obstructive pulmonary disease, unspecified Status: Chronic Assessment and Plan: on treatment, also atelectasis (6) Psoriatic arthritis: Code(s): L40.50 - Arthropathic psoriasis, unspecified Status: Chronic Subjective Date/time seen: 09/03/20 09:12 Interval history: he just had breakfast and doing well, also had BM's. He is feeling much better and asking about going home soon. Review of Systems Review of Systems: All systems reviewed & are unremarkable except as noted in HPI and below Exam Const: General: comfortable Other: no distress HENMT: General nose exam: Normal nares present Eyes: General: appearance normal, both eyes and all related structures Neck: Neck: no JVD Resp: Effort & Inspection: normal respiratory effort Other: no more wheezing Cardio: Rate: regular rate Rhythm: regular rhythm GI: Inspection: non-distended GI Palp: Yes Soft to palpation, Yes Tenderness to palpation present (GI) (only minimally tender, no rebound or guarding, overall is better) and No Guarding due to palpation present (GI) Auscultation: normal bowel sounds Skin: General skin exam: normal color Neuro: Cognition (Neuro): normal cognition Speech: normal speech Extrem: General: normal to inspection Psych: Mental Status: mental status grossly normal Objective Data Vital Signs Vital Signs: Vital Signs - 24 hr 09/02/20 14:15 09/02/20 15:20 09/02/20 15:26 Temperature 98.9 F Pulse Rate 110 H 108 H 92 Respiratory Rate 16 20 20 Blood Pressure 149/85 H Pulse Oximetry 96 09/02/20 20:04 09/02/20 20:10 09/02/20 20:15 Temperature Pulse Rate 96 99 99 Respiratory Rate 20 Blood Pressure Pulse Oximetry 93 09/02/20 20:21 09/02/20 22:00 09/03/20 02:29 Temperature 97.3 F L Pulse Rate 106 H 99 90 Respiratory Rate 20 18 20 Blood Pressure 144/89 H Pulse Oximetry 96 09/03/20 02:40 09/03/20 05:00 09/03/20 06:00 Temperature 97.0 F L 97.0 F L Pulse Rate 88 79 79 Respiratory Rate 20 20 20 Blood Pressure 156/84 H 156/84 H Pulse Oximetry 97 97 09/03/20 07:50 09/03/20 07:52 09/03/20 08:00 Temperature Pulse Rate 82 92 Respiratory Rate 20 20 Blood Pressure Pulse Oximetry 92 09/03/20 09:02 Temperature Pulse Rate 87 Respiratory Rate Blood Pressure Pulse Oximetry Intake/Output Intake/Output: Intake & Output 08/31/20 09/01/20 09/02/20 09/03/20 23:59 23:59 23:59 23:59 Intake Total 1910 3980 2590 1680 Output Total 1200 1825 1650 1300 Balance 710 2155 940 380 Meds/Results Medications: Active Medications Generic Name Dose Route Start Last Admin Trade Name Roniq PRN Reason Stop Dose Admin Acetaminophen 650 mg 08/28/20 21:57 Acetaminophen 325 Mg Tablet PO Q4H PRN Mild Pain (1-3) or Fever Aripiprazole 2 mg 08/29/20 09:00 09/03/20 09:02 Aripiprazole 2 Mg Tablet PO 2 mg DAILY NAI Administration Aspirin 81 mg 09/03/20 09:00 09/03/20
[2020-09-03] MEDS: atenoloL 12.5 MG TABLET PO (14:37)
[2020-09-03] MEDS: LORazepam INJ (*CRX) 2 MG/ML VIAL 0.5 MG IV PUSH (14:37)
--- NOTE | 2020-09-04 18:25 | PM.DS ---
DS: Admitting Diagnosis Admitting Diagnosis Admitting Diagnosis: Colitis DS: Discharge Diagnosis Discharge Diagnosis (1) Sepsis: Code(s): A41.9 - Sepsis, unspecified organism Status: Acute Assessment and Plan: Present on admission with tachycardia, tachypnea and leukocytosis. Related to the colitis. Probably COPD exacerbation also. Could be partially related to poor diaphragmatic excursion from more distended abdomen from ileus. but that has improved, bnp elevated at 1800 and repeat echo EF 50%, last one was 07/01 with EF of 35% (2) Colitis: Code(s): K52.9 - Noninfective gastroenteritis and colitis, unspecified Status: Acute Assessment and Plan: Patient presented with complaints of abdominal pain. CT scan showing moderate amount of ascending colonic inflammation, wall edema, appearance most consistent with colitis and a small amount of portal venous gas. Abd pain improved initially and better today No n/v. Was on clear liquid diet since admission and advanced to full 08/31 pm and now reg. Continue to have the patient up walking in the halls as tolerated. Continue Flagyl and Cipro on discharge in follow-up with GI for colonoscope within 4-6 weeks (3) Ileus: Code(s): K56.7 - Ileus, unspecified Status: Resolved Assessment and Plan: As above. Concern that more distended abdomen causing the SOB. initially CXR 08/31 showing more elevated right hemidiaphragm but seen in the past. Probably related to the ileus. THis is probably causing some of his respiratory symtpoms. NG tube placed last 08/31 pm and removed 09/01 am ileus totally resolved (4) COPD (chronic obstructive pulmonary disease): Code(s): J44.9 - Chronic obstructive pulmonary disease, unspecified Status: Chronic Assessment and Plan: Patient hypoxic with narcotics which is probably depressing his respiratory drive. ABG in November showing normal pCO2. We decreased Dilaudid then ultimately stopped it. As above. Continue his inhalers. Continue with Singulair. Continue Xopenex. IV steroids added while here and will have 1 week taper prednisone back to his usual 10 mg daily for his arthritis (5) Anxiety and depression: Code(s): F41.9 - Anxiety disorder, unspecified; F32.9 - Major depressive disorder, single episode, unspecified Status: Chronic Assessment and Plan: Patient with bipolar disorder - major depression with history of suicide and anxiety. He has been resumed on his Abilify and Effexor. Ativan available as needed for anxiety. Mood much better controlled. (6) Psoriatic arthritis: Code(s): L40.50 - Arthropathic psoriasis, unspecified Status: Chronic Assessment and Plan: Patient is on immunosuppressive agents including steroids and methotrexate. increased for his respiratory status which will function as stress dose also. Will hold his methotrexate given his current infection and can restart next week (7) HTN (hypertension): Code(s): I10 - Essential (primary) hypertension Status: Chronic Assessment and Plan: Patient's blood pressure was reviewed and continue to be elevated with tachycardia.. On Coreg at home and Gradually increased to 25 mg b.i.d. . with his continue mild tachycardia added back his atenolol but only at 12.5 mg daily (8) CAD (coronary artery disease): Code(s): I25.10 - Atherosclerotic heart disease of [place] coronary artery without angina pectoris Status: Chronic Assessment and Plan: Patient has a history of having 1 cardiac stent and he is on aspirin, Lipitor and beta bi. Continue Coreg. Restarted ASA and Lipitor . (9) Hyperlipidemia: Code(s): E78.5 - Hyperlipidemia, unspecified Status: Chronic Assessment and Plan: LFTs normal. Atorvastatin restarted (10) Bipolar 1 disorder: Code(s): F31.9 - Bipo
== END 2020-09-03 16:30 | disposition home or self-care (01) | DRG 389 ==
LOC: ANHED 21:13 → ANHIMU 22:27 → ANH2MED 09-03 15:58 → ANHIMU 09-07 12:37
PROVIDERS: Internal Medicine; Internal Medicine Gastroenterology; Nurse Practitioner; Surgery; Admitting Provider Family Medicine; Emergency Provider Emergency Medicine; PCP Family Medicine; Visit Provider Internal Medicine
DX: K56.7 Ileus, unspecified (principal); J44.1 Chronic obstructive pulmonary disease with (acute) exacerbation; K52.9 Noninfective gastroenteritis and colitis, unspecified; Z23 Encounter for immunization; F31.9 Bipolar disorder, unspecified; F41.9 Anxiety disorder, unspecified; L40.50 Arthropathic psoriasis, unspecified; I10 Essential (primary) hypertension; I25.10 Atherosclerotic heart disease of native coronary artery without angina pectoris; E78.5 Hyperlipidemia, unspecified; F17.210 Nicotine dependence, cigarettes, uncomplicated; D72.829 Elevated white blood cell count, unspecified; M54.9 Dorsalgia, unspecified; G89.4 Chronic pain syndrome; Z95.5 Presence of coronary angioplasty implant and graft
CPT/HCPCS: 36415; 51701; 71045; 74019; 74177; 80048; 80053; 80069; 80076; 81003; 82728; 83605; 83690; 83735; 83880; 84100; 84443; 85025; 85027; 85610; 85652; 86140; 87015; 87040; 87045; 87046; 87269; 87272; 87324; 87427; 89055; 90471; 90653; 93005; 93306; 94640; 96361; 96365; 96366; 96367; 96375; 96376; 97110; 97161; 97165; 97530; 99285; A9270; C9113; G0008; G0378; J0131; J0500; J0744; J1170; J1650; J1940; J2060; J2270; J2405; J2920; J3480; J7030; J7512; Q9967

== ENCOUNTER 2020-09-16 13:43 | Outpatient (CLI) | payer OTHER, MEDICARE, SELFPAY ==
--- NOTE | ~2020-09-16 | XR_ITS ---
EXAMINATION: XR lumbar spine 2-3V, XR thoracic spine 3V EXAM DATE: 09/16/2020 14:22 INDICATION: Chronic low back pain. TECHNIQUE: Lumber spine frontal, lateral, lateral L5-S1 projections for interpretation. Thoracic spin e frontal and lateral projections. Lateral swimmers thoracic spine projection. There is no prior stud y for comparison. FINDINGS: There is conjoined T11-12 vertebral bodies with moderate anterior wedging at the T11 level and mild loss of the T12 level compared to prior study, sequela from patient's known episode of disc itis/osteomyelitis. No acute erosive change today. There is moderate to severe disc disease at L1-2, moderate at T12-L1. Mild to moderate lumbar disc disease at the other levels. There is moderate lower lumbar facet arthropathy. The vertebral bodies are aligned in the AP dimension. Sacrum, sacroiliac j oints, sacral arcuate lines are intact. Left hip arthroplasty. Paraspinal soft tissue is unremarkable . There is mild to moderate mid and lower thoracic disc disease. Mild upper thoracic levoscoliosis. IMPRESSION: 1. Chronic T11-12 wedging, effusion, sequela from discitis. 2. L1-2 moderate to severe disc disease. 3. Mild to moderate thoracic spondylosis. 4. Moderate lumbar facet arthropathy. Reviewed, dictated and finalized at location B. NG CLEANER IMPRESSION: 1. Chronic T11-12 wedging, effusion, sequela from discitis. 2. L1-2 moderate to severe disc disease. 3. Mild to moderate thoracic spondylosis. 4. Moderate lumbar facet arthropathy.
--- NOTE | ~2020-09-16 | XR_ITS ---
EXAMINATION: XR shoulder LT min 2V EXAM DATE: 09/16/2020 14:23 INDICATION: Left shoulder pain, limited range of motion. No known recent injury. TECHNIQUE: The following left shoulder projections obtained: frontal projection with internal rotatio n, frontal projection with external rotation, Grashey, and axillary (4+ views). There is no prior parviz dy for comparison. FINDINGS: No evidence of left shoulder rotator cuff calcific tendinosis. There is mild glenohumera l and acromioclavicular joint primary osteoarthritis. There are no acute fractures or dislocations id entified. There is no subcutaneous gas. The soft tissue is unremarkable. There are no radiopaque foreign bodies. IMPRESSION: Mild left shoulder osteoarthritis. Reviewed, dictated and finalized at location B. NCIAL DIRECTOR
== END 2020-09-16 13:44 | disposition home or self-care (01) ==
PROVIDERS: PCP Family Medicine; Visit Provider Pain Medicine Interventional Pain Medicine
DX: M54.16 Radiculopathy, lumbar region (principal); M54.14 Radiculopathy, thoracic region; M25.512 Pain in left shoulder; M19.012 Primary osteoarthritis, left shoulder; M51.9 Unspecified thoracic, thoracolumbar and lumbosacral intervertebral disc disorder; M47.814 Spondylosis without myelopathy or radiculopathy, thoracic region
CPT/HCPCS: 72072; 72100; 73030

== ENCOUNTER 2020-11-13 00:48 | Outpatient (CLI) | payer OTHER, MEDICARE, SELFPAY ==
[2020-11-15 20:47] LABS: SARS-CoV-2 RNA PCR Negative
== END 2020-11-13 00:49 | disposition home or self-care (01) ==
LOC: ANHCOVIDDT 00:49
PROVIDERS: PCP Family Medicine; Visit Provider Internal Medicine Gastroenterology
DX: Z01.818 Encounter for other preprocedural examination (principal); Z20.828 Contact with and (suspected) exposure to other viral communicable diseases
CPT/HCPCS: C9803; U0003

== ENCOUNTER 2020-11-16 01:07 | Day surgery (SDC) | payer OTHER, MEDICARE, SELFPAY ==
[2020-10-29 12:32] VITALS: BMI 27.4
--- NOTE | 2020-11-15 09:49 | SUR.PREOP ---
[address] JENSEN REGARDING PATIENT'S COVID RESULTS STILL PENDING AND NOT ABLE TO BE RE-RUN AND RESULTED BEFORE HIS PROCEDURE ON 11/15/20. DISCUSSED PATIENT'S HISTORY WITH THE DOCTOR AND HOW HE WANTED TO PROCEED. DR. JENSEN REQUESTED THAT IF THE PATIENT HAS NO COVID SIGNS OR SYMPTOMS HE WOULD LIKE TO PROCEED WITH THE PROCEDURE IF THE PATIENT WAS IN AGREEMENT. 0951 CALLED AND SPOKE WITH ZELALEM AND DISCUSSED THE STATUS OF HIS COVID RESULT, SIGNS AND SYMPTOMS OF COVID, AND DR. JENSEN'S COMMENTS. PATIENT DENIED ANY SOB, FEVER, COUGH, RUNNY NOSE, SINUS CONGESTION, BODY ACHES OR DIARRHEA. PATIENT IN AGREEMENT TO HAVE HIS PROCEDURE TOMORROW. NEW ARRIVAL TIME GIVEN TO THE PATIENT. EXPLAINED TO PATIENT THAT WE WOULD MOVE HIM TO THE END OF DR. JENSEN CASES. PATIENT VOICED UNDERSTANDING AND SAID HE WOULD ARRIVE AT 9:30 FOR HIS PROCEDURE TOMORROW MORNING.
--- NOTE | 2020-11-16 07:01 | WPDANESEPPF ---
Anes - Initial Pre Proc Eval Procedure: Operation Date: 11/16/20 10:30 Proposed Procedures p Colonoscopy - Arnoldo Mcclain MD Date/Time: 11/16/20 07:01 Surgeon: Arnoldo Mcclain MD Pre Op Diagnosis: Gastroenteritis,colitis Patient Data Age: 64 Gender: M Height: 1.7 m Weight: 79.5 kg Allergies Allergy/AdvReac Type Severity Reaction Status Date / Time vancomycin Allergy Unknown Flushing Verified 11/16/20 09:29 Home Medications Medication Instructions Recorded Confirmed Type B-complex with vitamin C 1 tablet PO DAILY 10/17/19 10/29/20 History aripiprazole 2 mg tablet 2 mg PO DAILY 10/17/19 10/29/20 History aspirin 81 mg tablet,delayed 81 mg PO DAILY 10/17/19 10/29/20 History release atorvastatin 20 mg tablet 20 mg PO DAILY 10/17/19 11/16/20 History cholecalciferol (vitamin D3) 25 2,000 unit PO DAILY cap 10/17/19 10/29/20 History mcg (1,000 unit) capsule cyclobenzaprine 10 mg tablet 10 mg PO Q6-8H PRN 10/17/19 10/29/20 History folic acid 1 mg tablet 3 mg PO DAILY 10/17/19 10/29/20 History multivitamin 1 cap PO DAILY 10/17/19 10/29/20 History oxycodone-acetaminophen 10 mg-325 1 tablet PO Q6-8H PRN 10/17/19 10/29/20 History mg tablet Trelegy Ellipta 1 inh INHALATION DAILY 08/29/20 10/29/20 History levofloxacin 500 mg PO DAILY 08/29/20 10/29/20 History meclizine 25 mg PO BID PRN 08/29/20 10/29/20 History methotrexate sodium 20 mg PO WEEKLY 08/29/20 10/29/20 History venlafaxine 225 mg PO DAILY 08/29/20 10/29/20 History atenolol 12.5 mg PO DAILY #0 tablet 09/03/20 10/29/20 Rx carvedilol [Coreg] 25 mg PO Q12HR #60 tablet 09/03/20 10/29/20 Rx metronidazole 500 mg PO Q8H #10 tablet 09/03/20 10/29/20 Rx prednisone 20 mg PO DAILY #10 tablet 09/03/20 10/29/20 Rx mecobalamin (vitamin B12) 5,000 5,000 mcg PO DAILY 09/28/20 10/29/20 History mcg lozenge venlafaxine 150 mg 150 mg PO DAILY cap 09/28/20 09/28/20 History capsule,extended release 24 hr sodium,potassium,mag sulfates 17.5 See Rx Instructions PO .COMPLEX 10/23/20 10/29/20 Rx gram-3.13 gram-1.6 gram oral soln #354 ml Patient hx anesthesia problems: none Family hx anesthesia problems: none PMFSH Past Medical History Medical History (Updated 09/28/20 @ 15:55 by Arnoldo Mcclain MD) Anxiety and depression Bipolar 1 disorder CAD (coronary artery disease) 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 Repeat evaluation and was in 2017. Chronic back pain Constipation due to opioid therapy COPD (chronic obstructive pulmonary disease) Depression History of MRSA infection History of stomach ulcers History of suicide attempt multiple times HTN (hypertension) Hyperlipidemia Ileus Leukocytosis Lower abdominal pain MRSA infection Psoriatic arthritis Surgical History Surgical History H/O heart artery stent 1 stent 2004 with a repeat catheterization in 2006 no intervention was done at that time H/O toe surgery hammertoe repair History of ankle surgery left heel repaired History of appendectomy 1986 History of hip replacement Hx of rhinoplasty Family History Family History Father COPD (chronic obstructive pulmonary disease) Mother Cancer Unknown Cancer Social History Social History Social History: the patient tells me that he is down to a pack a cigarettes a day. his multiple dogs and cats. He has 6 adopted children. We 3 from this marriage in 3 from a previous marriage. No biological children the. He is disabled. He is a full code. 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 The patient drinks about 2-3 alcoholic beverages a week. Smoking packs per day: 1 Smoking cigarettes per day: 20.0 Years smoked: 45 Smoking pack-years: 45.00 Smoking status: Current every day smoker Tobacco ty
[2020-11-16 09:29] VITALS: BP 163/104; PULSE 100; RESP 20; TEMP 36.1; O2SAT 96
[2020-11-16] MEDS: LACTATED RINGERS 1,000 ML 150 ML IV CONT (09:36)
--- NOTE | 2020-11-16 10:07 | PM.HPGS ---
History of Present Illness History of Present Illness Consent: Risks, benefits, and alternatives have been discussed and questions answered. Patient agrees to proceed with procedure. Chief complaint: Gastroenteritis,colitis Narrative: Israel Plascencia Sr. is a 64 year old male with colitis few months ago, now asymptomatic but never had a colonoscopy Review of Systems Constitutional: Constitutional: Denies headache(s) and Denies weakness Eyes: Eyes: Denies blurry vision ENT: Reports Normal hearing present, Denies headache(s) and Denies neck pain Cardiovascular: Cardiovascular: Denies chest pain and Denies dyspnea Respiratory: Respiratory: Denies dyspnea Gastrointestinal: Gastrointestinal: Reports no additional gastrointestinal complaints Genitourinary: Genitourinary: Denies dysuria Musculoskeletal: Musculoskeletal: Denies neck pain Integumentary/Breasts: Skin/Breast: Denies dry skin Neurologic: Reports Normal hearing present, Denies headache(s) and Denies weakness Psychiatric: Psychiatric: Denies anxiety Endocrine: Endocrine: Denies change in body appearance Hematologic/Lymphatic: Hematologic/Lymphatic: Denies easy bleeding Allergic/Immunologic: Allergic/Immunologic: Denies urticaria PMF Past Medical History Medical History (Updated 09/28/20 @ 15:55 by Arnoldo Mcclain MD) Anxiety and depression Bipolar 1 disorder CAD (coronary artery disease) 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 Repeat evaluation and was in 2017. Chronic back pain Constipation due to opioid therapy COPD (chronic obstructive pulmonary disease) Depression History of MRSA infection History of stomach ulcers History of suicide attempt multiple times HTN (hypertension) Hyperlipidemia Ileus Leukocytosis Lower abdominal pain MRSA infection Psoriatic arthritis Surgical History Surgical History H/O heart artery stent 1 stent 2004 with a repeat catheterization in 2006 no intervention was done at that time H/O toe surgery hammertoe repair History of ankle surgery left heel repaired History of appendectomy 1986 History of hip replacement Hx of rhinoplasty Family History Family History Father COPD (chronic obstructive pulmonary disease) Mother Cancer Unknown Cancer Social History Social History Social History: the patient tells me that he is down to a pack a cigarettes a day. his multiple dogs and cats. He has 6 adopted children. We 3 from this marriage in 3 from a previous marriage. No biological children the. He is disabled. He is a full code. 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 The patient drinks about 2-3 alcoholic beverages a week. Smoking packs per day: 1 Smoking cigarettes per day: 20.0 Years smoked: 45 Smoking pack-years: 45.00 Smoking status: Current every day smoker Tobacco type: cigarettes Additional smoking assessment comments: trying to quit Alcohol intake: current Drinks per week: 1 Substance use: never Substance use type: does not use Living arrangements: with family Gender identity (if verbalized by the patient): Male Spiritual care concerns: No Meds Home Medications and Allergies Home Medications Medication Instructions Recorded Confirmed Type B-complex with vitamin C 1 tablet PO DAILY 10/17/19 10/29/20 History aripiprazole 2 mg tablet 2 mg PO DAILY 10/17/19 10/29/20 History aspirin 81 mg tablet,delayed 81 mg PO DAILY 10/17/19 10/29/20 History release atorvastatin 20 mg tablet 20 mg PO DAILY 10/17/19 11/16/20 History cholecalciferol (vitamin D3) 25 2,000 unit PO DAILY cap 10/17/19 10/29/20 History mcg (1,000 unit) capsule cyclobenzaprine 10 mg tablet 10 mg PO Q6-8H PRN 10/17/19 10/29/20 History folic acid 1 mg tablet 3 mg
[2020-11-16 10:46] VITALS: BP 97/56; PULSE 87; RESP 16; O2SAT 97
[2020-11-16 10:56] VITALS: BP 121/77; PULSE 93; RESP 22; O2SAT 98
[2020-11-16 11:06] VITALS: BP 134/87; PULSE 87; RESP 19; O2SAT 98
== END 2020-11-16 11:28 | disposition home or self-care (01) ==
PROVIDERS: PCP Family Medicine; Visit Provider Internal Medicine Gastroenterology
PROC: 0DJD8ZZ Inspection of Lower Intestinal Tract, Via Natural or Artificial Opening Endoscopic (ICD-10-PCS; CPT 45378; principal; 2020-11-16 12:00)
DX: D12.2 Benign neoplasm of ascending colon (principal); D12.4 Benign neoplasm of descending colon; K52.9 Noninfective gastroenteritis and colitis, unspecified; K64.8 Other hemorrhoids; Z79.82 Long term (current) use of aspirin; F41.8 Other specified anxiety disorders; F31.9 Bipolar disorder, unspecified; I25.3 Aneurysm of heart; J44.9 Chronic obstructive pulmonary disease, unspecified; I10 Essential (primary) hypertension; E78.5 Hyperlipidemia, unspecified; D72.829 Elevated white blood cell count, unspecified; L40.50 Arthropathic psoriasis, unspecified; F17.210 Nicotine dependence, cigarettes, uncomplicated; Z95.5 Presence of coronary angioplasty implant and graft
CPT/HCPCS: 45380; 45381; 45385; 88305; C9803; J2704; J7120; U0003

== ENCOUNTER 2021-01-28 15:53 | Observation (INO) | payer OTHER, MEDICARE, SELFPAY ==
[2021-01-28] VITALS (29 sets, daily range): BP systolic 78–145; BP diastolic 64–109; PULSE 106–125; RESP 17–30; TEMP 36.6–37.1; O2SAT 88–100; BMI 26.9
--- NOTE | ~2021-01-28 | XR_ITS ---
XR chest 2V DATE: 01/28/2021 16:56 INDICATION: Shortness of breath. Posterior chest pain. History of COPD, hypertension. TECHNIQUE: PA and lateral views COMPARISON: 08/31/2020 portable AP chest FINDINGS: There is prominent elevation right leaf of the diaphragm and colonic interposition between the diaphragm and liver. There is mild infiltrate and/or atelectasis at lung bases. Normal heart size. No hilar or mediastinal enlargement. No pleural effusion or pulmonary vascular congestion or pneumothorax is detected. Diffuse osteopenia. IMPRESSION: Chronic elevation right diaphragm and mild bibasilar infiltrate and/or atelectasis Reviewed, dictated and finalized at location A. IMPRESSION: Chronic elevation right diaphragm and mild bibasilar infiltrate and /or atelectasis
--- NOTE | ~2021-01-28 | CT_ITS ---
EXAMINATION: CTA chest PE protocol DATE: 01/28/2021 17:45 INDICATION: Shortness of breath TECHNIQUE: Computed tomography angiography (CTA) of the chest was performed with 100 mL Omnipaque-350 intravenous contrast timed to evaluate the pulmonary arteries. Coronal maximum intensity projection 3D-reconstructions were created by the technologist. Automated exposure control and iterative reconst ruction technique were employed. Exam dose: 411.76 mGy-cm total exam DLP. COMPARISON: 01/28/2021 2 view chest 11/14/2019 CT pulmonary scan FINDINGS: There is diagnostic enhancement of the pulmonary arteries and no evidence of pulmonary embo lism. No thoracic aortic aneurysm or dissection. No hilar or mediastinal mass lesion or lymphadenopathy. There is prominent elevation of the right leaf of the diaphragm, with compressive atelectasis at the lung base. The lungs are otherwise clear. Right gynecomastia. Left breast is excluded from examination. Diffuse osteopenia. Degenerative spurring of the thoracic spine. Chronic fracture or post-infection deformity and fusion at T11 and T12. IMPRESSION: No pulmonary embolism Reviewed, dictated and finalized at [facility]. Reviewed, dictated and finalized at [facility]. IMPRESSION: No pulmonary embolism
--- NOTE | 2021-01-28 16:04 | ECG_ITS ---
Measurements Intervals [place] Rate: 104 P: 42 DE: 170 QRS: -15 QRSD: 94 T: 59 QT: 329 QTc: 434 Interpretive Statements SINUS TACHYCARDIA DELAYED PRECORDIAL R/S TRANSITION INFERIOR INFARCT, AGE INDETERMINATE BASELINE ARTIFACT- I, II, III, AVR, AVL, AVF, V1-V6 ABNORMAL ECG Electronically Signed On 01-28-2021 16:15:29 CDT by Jeronimo Snow D.O.
[2021-01-28 16:16] LABS: Basophils Percent Auto 0.3 % (0.2-1.2); Eosinophils Percent Auto 0.3 % (0-4.4); Hematocrit 46.3 % (42.0-52.0); Hemoglobin 15.5 g/dL (14.0-18.0); Immature Granulocyte Absolute 0.16 K/mm3 (0.00-0.031); Immature Granulocyte Percent A 1.3 % (0-0.5); Lymphocytes Absolute Auto 1.59 K/mm3 (0.9-3.2); Lymphocytes Percent Auto 13.4 % (18.3-44.2); Mean Corpuscular HGB Conc 33.5 g/dl (32-36); Mean Corpuscular Hemoglobin 32.8 pg (26-34); Mean Corpuscular Volume 97.9 fl (80-100); Mean Platelet Volume 9.6 fl (7.4-10.4); Monocytes Absolute Auto 1.1 K/mm3 (0.1-0.6); Monocytes Percent Auto 9.3 % (2.6-8.5); Neutrophils Percent Auto 75.4 % (45.5-73.1); Platelet Count Result 294 k/mm3 (150-375); Red Blood Count 4.73 M/mm3 (4.6-6.20); Red Cell Distribution Width 14.5 % (11.5-14.5); White Blood Count 11.9 K/mm3 (4.5-10.0)
[2021-01-28 17:06] LABS: Anion Gap 8 mmol/L (8-16); Blood Urea Nitrogen 16 mg/dL (9-20); Calcium 9.3 mg/dL (8.4-10.2); Carbon Dioxide 27 mmol/L (22-30); Chloride 94 mmol/L (98-107); Estimated CRCL calculation 78 ml/min; Estimated Glomerular Filt Rate > 60; Glucose 126 mg/dL (75-110); Potassium 5.2 mmol/L (3.4-5.0); Sodium 129 mmol/L (137-145)
--- NOTE | 2021-01-28 17:14 | ED.SOB ---
HPI - SOB/Dyspnea General Chief Complaint: Shortness of Breath/Dyspnea Stated Complaint: chest pain, SOB Time Seen by Provider: 01/28/21 16:00 Source: patient Mode of arrival: ambulatory Limitations: no limitations History of Present Illness HPI Narrative: Patient is a 65-year-old male who presents complaining of right-sided upper back and chest discomfort and shortness of breath. He reports upper back pain x1 week with increasing pain over the past few days. He reports increasing shortness of breath for the past 2 days and shortness of breath with exertion. He reports a history of COPD but denies complications. He reports that he is most comfortable in a seated position. Patient appears uncomfortable. Patient denies exposure to known Covid. Patient reports having [employer] Covid vaccine last week. Related Data Home Medications Medication Instructions Recorded Confirmed B-complex with vitamin C 1 tablet PO DAILY 10/17/19 10/29/20 aripiprazole 2 mg tablet 2 mg PO DAILY 10/17/19 10/29/20 aspirin 81 mg tablet,delayed 81 mg PO DAILY 10/17/19 10/29/20 release atorvastatin 20 mg tablet 20 mg PO DAILY 10/17/19 11/16/20 cholecalciferol (vitamin D3) 25 2,000 unit PO DAILY cap 10/17/19 10/29/20 mcg (1,000 unit) capsule cyclobenzaprine 10 mg tablet 10 mg PO Q6-8H PRN 10/17/19 10/29/20 folic acid 1 mg tablet 3 mg PO DAILY 10/17/19 10/29/20 multivitamin 1 cap PO DAILY 10/17/19 10/29/20 oxycodone-acetaminophen 10 mg-325 1 tablet PO Q6-8H PRN 10/17/19 10/29/20 mg tablet Trelegy Ellipta 1 inh INHALATION DAILY 08/29/20 10/29/20 levofloxacin 500 mg PO DAILY 08/29/20 10/29/20 methotrexate sodium 20 mg PO WEEKLY 08/29/20 10/29/20 venlafaxine 225 mg PO DAILY 08/29/20 10/29/20 mecobalamin (vitamin B12) 5,000 5,000 mcg PO DAILY 09/28/20 10/29/20 mcg lozenge Allergies Allergy/AdvReac Type Severity Reaction Status Date / Time vancomycin Allergy Unknown Flushing Verified 01/28/21 16:04 Review of Systems Review of Systems: Narrative: CONSTITUTIONAL: Denies fever, chills, or sweats. EYES: Denies visual changes, redness, or discharge. ENT: Denies rhinorrhea, congestion, sore throat, or otalgia. CARDIOVASCULAR: Denies chest pain, palpitations, or edema. RESPIRATORY: Reports dyspnea. GASTROINTESTINAL: Denies abdominal pain, nausea, vomiting, or diarrhea. GENITOURINARY: Denies dysuria or hematuria. SKIN: Denies rash or itching. MUSCULOSKELETAL: Reports right thoracic pain NEUROLOGIC: Denies headache, numbness, dizziness, or weakness. PSYCHIATRIC: Denies anxiety or depression. [facility] Past Medical History Medical History Anxiety and depression Bipolar 1 disorder CAD (coronary artery disease) 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 Repeat evaluation and was in 2017. Chronic back pain Constipation due to opioid therapy COPD (chronic obstructive pulmonary disease) Depression History of MRSA infection History of stomach ulcers History of suicide attempt multiple times HTN (hypertension) Hyperlipidemia Ileus Leukocytosis Lower abdominal pain MRSA infection Psoriatic arthritis Surgical History Surgical History H/O heart artery stent 1 stent 2004 with a repeat catheterization in 2006 no intervention was done at that time H/O toe surgery hammertoe repair History of ankle surgery left heel repaired History of appendectomy 1986 History of hip replacement Hx of rhinoplasty Family History Family History Father COPD (chronic obstructive pulmonary disease) Mother Cancer Unknown Cancer Social History Social History Social History: the patient tells me that he is down to a pack a cigarettes a day. his multiple dogs and cats. He has 6 adopted children. We 3 from this marri
[2021-01-28 19:51] LABS: Alveolar/Arterial O2 Gradient 40.5 mmHg; Base Excess ABG 2.6 mEq/l (+/-2.0); Fractional Inspired Oxygen 21 %; Oxygen Content ABG 19.1 %vol (16.0-22.0); Oxygen Saturation ABG 91.9 % (95.0-100.0); Oxyhemoglobin 87.1 % THb (90.0-100.0); PCO2 ABG 40.9 mmHg (35.0-45.0); PO2 ABG 60.3 mmHg (80.0-100.0); PO2 FiO2 Ratio Arterial Blood 2.87 %; Total Hemoglobin 15.6 g/dL (12.0-18.0); pH ABG 7.437 (7.350-7.450)
[2021-01-28 19:52] LABS: Device ROOM AIR; Modified Allen's Test Pass; Site Drawn RIGHT RADIAL
--- NOTE | 2021-01-28 19:56 | PC.NURSE ---
Contacted lab, spoke with Ray to add on labs.
--- NOTE | 2021-01-28 20:08 | PC.NURSE ---
Patient ambulated in the room on pulse ox. Patient oxygen sat decreased to 87% on RA. Patient assisted back on to stretcher and oxygen sat increased to 95%. ERP notified.
[2021-01-28 20:26] LABS: Alanine Aminotransferase 28 U/L (4-50); Aspartate Amino Transferase 46 U/L (17-59); CRP 5.9 mg/dL (<1.0); Lipase 43 U/L (23-300)
[2021-01-28 20:33] LABS: Troponin I < 0.012 ng/mL (0.000-0.034)
[2021-01-28] MEDS: methylPREDNISolone SOD SUCC 125 MG VIAL IV PUSH (20:47)
[2021-01-28] MEDS: ALBUTEROL SULFATE NEB 2.5 MG/0.5 ML INH 5 MG INHALATION (20:54)
--- NOTE | 2021-01-28 21:54 | PM.IMHP ---
H&P: HPI History of Present Illness Date/Time: 01/28/21 21:54 Chief Complaint: shortness of breath Narrative: 65-year-old male with a past medical history of hypertension, COPD, coronary artery disease and psoriatic arthritis who presented to the ER with shortness or breath and back pain. The patient reports that he has been having respiratory symptoms on and off for the last 3 weeks. He reports that approximately 3 weeks ago he started having cough productive of yellow sputum. He called his primary care physician was given a course of Levaquin. He finished a course of Levaquin and felt better for a few days but then his symptoms returned. He reports that he has been more short of breath for the last 2 days. He reports that when his symptoms returned he began having posterior bilateral rib pain is worse with deep breathing and coughing. Side. He was concerned that he may have pneumonia so he came to the ER. When he found out that his imaging did not demonstrate pneumonia he tried to leave the ER against medical advice. He reports that the pain is severe in nature. He denies any fevers or chills. He has had decreased oral intake with decreased appetite. He reports that his symptoms are improved if he sits up. His symptoms have been so bad that he has had to cut down to 3 cigarettes a day from a pack of cigarettes per day. He has noticed increased wheezing. He has been using his nebulizer treatments once or twice a day with only minimal rib relief in his symptoms. He has dyspnea at rest and with exertion. He has not noticed any lower extremity edema. He received the [employer] COVID vaccine about 1 week ago. He denies any known exposures to COVID. He has not had any loss of sense of taste or smell. The patient was tachycardic in the ER with heart rate up to. The patient reports that he always has some sinus tachycardia in usually takes Coreg. Review of Systems Review of Systems: Narrative: 12 systems were reviewed with pertinent positives and negatives per HPI. Except as documented in the HPI, all other systems were reviewed and are negative. [facility] Past Medical History Medical History (Updated 01/28/21 @ 22:03 by Angelita Maldonado DO) Anxiety and depression Bipolar 1 disorder CAD (coronary artery disease) 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 Repeat evaluation and was in 2017. Chronic back pain Constipation due to opioid therapy COPD (chronic obstructive pulmonary disease) Depression History of MRSA infection History of stomach ulcers History of suicide attempt multiple times HTN (hypertension) Hyperlipidemia Ileus MRSA infection Osteopenia determined by x-ray Psoriatic arthritis Surgical History Surgical History H/O heart artery stent 1 stent 2004 with a repeat catheterization in 2006 no intervention was done at that time H/O toe surgery hammertoe repair History of ankle surgery left heel repaired History of appendectomy 1987 History of hip replacement Hx of rhinoplasty Family History Family History Father COPD (chronic obstructive pulmonary disease) Mother Cancer Social History Social History (Updated 01/29/21 @ 02:07 by Angelita Maldonado DO) Social History: He lives in [place] with his of 16 years. He continues to smoke and is down to a pack a cigarettes a day. He has multiple dogs and cats. He has 6 adopted children. 3 from this marriage in 3 from a previous marriage. No biological children. 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 But has not had anything to drink in last month. Primary care physician: Dr. Yogi Soriano Code status: Full code Healthcare power of litigation attorney: Smoking packs per day:
[2021-01-28 22:22] LABS: Troponin I < 0.012 ng/mL (0.000-0.034)
--- NOTE | 2021-01-28 22:39 | ADMGEN ---
This patient, Israel Plascencia Sr., was admitted to Medical Room 241-01. Patient/family oriented to hospital policies and general routines including ID bracelet, bed and alarms, visiting hours, pain management, procedures, bathroom and other care routines, personal items, smoking policy, room service/diet, and visiting hours. Information on how to activate the Rapid Response Team has been discussed. Patient/Family are encouraged to report perceived risks to care and to ask questions if they do not understand what they are told or what they should do.
[2021-01-28] MEDS: SODIUM CHLORIDE 0.9% IV 1,000 ML 125 ML IV CONT (23:22)
[2021-01-29] VITALS (22 sets, daily range): BP systolic 111–135; BP diastolic 72–82; PULSE 86–118; RESP 16–20; TEMP 36.2–36.7; O2SAT 86–96
[2021-01-29] MEDS: methylPREDNISolone SOD SUCC 125 MG VIAL 60 MG IV PUSH ×5 (00:05→23:49)
[2021-01-29] MEDS: oxyCODONE/ACETAMINOPHEN (*CRX) 5-325 MG TABLET 1 TABLET PO ×2 (00:30→18:47)
[2021-01-29] MEDS: carvediloL 25 MG TABLET PO ×3 (00:31→21:09)
[2021-01-29] MEDS: SODIUM CHLORIDE 0.9% IV 1,000 ML 100 ML IV CONT ×3 (01:34→21:12)
[2021-01-29] MEDS: IPRATROPIUM BR 0.02% INH SOLN 0.5 MG/2.5 ML VIAL INHALATION ×4 (02:31→20:06)
[2021-01-29] MEDS: ALBUTEROL SULFATE NEB 2.5 MG/0.5 ML INH 5 MG INHALATION (02:31)
[2021-01-29 05:01] LABS: Creatinine Urine 62.7 mg/dL
[2021-01-29 05:09] LABS: Sodium Urine Random 15 meq/L
[2021-01-29 05:36] LABS: Hematocrit 43.9 % (42.0-52.0); Hemoglobin 14.8 g/dL (14.0-18.0); Mean Corpuscular HGB Conc 33.7 g/dl (32-36); Mean Corpuscular Hemoglobin 32.2 pg (26-34); Mean Corpuscular Volume 95.4 fl (80-100); Mean Platelet Volume 9.9 fl (7.4-10.4); Platelet Count Result 269 k/mm3 (150-375); Red Cell Distribution Width 14.2 % (11.5-14.5); White Blood Count 7.6 K/mm3 (4.5-10.0)
[2021-01-29 05:59] LABS: Anion Gap 4 mmol/L (8-16); Blood Urea Nitrogen 19 mg/dL (9-20); Calcium 8.8 mg/dL (8.4-10.2); Carbon Dioxide 29 mmol/L (22-30); Chloride 99 mmol/L (98-107); Estimated CRCL calculation 78 ml/min; Estimated Glomerular Filt Rate > 60; Glucose 191 mg/dL (75-110); Potassium 4.7 mmol/L (3.4-5.0); Sodium 132 mmol/L (137-145)
[2021-01-29] MEDS: FLUTICASONE/UMECLIDIN/VILANTER 100-62.5-25 MCG ELLIPTA 1 PUFF INHALATION (08:13)
[2021-01-29] MEDS: METHOTREXATE 2.5 MG TAB (*CHEMO) 20 MG PO (09:02)
[2021-01-29] MEDS: ARIPiprazole 2 MG TABLET PO (09:03)
[2021-01-29] MEDS: CHOLECALCIFEROL 1,000 UNITS TABLET 2000 UNITS PO (09:03)
[2021-01-29] MEDS: CYANOCOBALAMIN 1,000 MCG TABLET 5000 MCG PO (09:03)
[2021-01-29] MEDS: FOLIC ACID 1 MG TABLET PO ×3 (09:04→17:06)
[2021-01-29] MEDS: ASPIRIN 81 MG ENTERIC TABLET PO (09:04)
[2021-01-29] MEDS: MULTIVITAMINS THERAPEUTIC TAB (*BKC) 1 TABLET PO (09:04)
[2021-01-29] MEDS: ATORVASTATIN 20 MG TABLET PO (09:04)
[2021-01-29] MEDS: MECLIZINE HCL 25 MG TABLET PO ×2 (09:04→17:06)
[2021-01-29] MEDS: VENLAFAXINE HCL XR 75 MG CAP.ER.24H 150 MG PO (09:04)
[2021-01-29] MEDS: VITAMIN B COMPLEX/VIT C CAPSULE 1 EACH PO (09:04)
[2021-01-29] MEDS: ENOXAPARIN 40 MG/0.4 ML SYRINGE SUB-Q (09:05)
--- NOTE | 2021-01-29 14:14 | PM.IMPN ---
Progress Note: A&P Assessment and Plan (1) Acute respiratory failure with hypoxia: Code(s): J96.01 - Acute respiratory failure with hypoxia Status: Acute Assessment and Plan: Patient was being treated for bronchitis with oral Levaquin, he was on day 4 when he developed worsening shortness of breath issues which brought him into the hospital. He was found to be hypoxic and placed on 2 L of oxygen via nasal cannula. Most likely hypoxia is due to COPD exacerbation on top of bronchitis versus pneumonia Being treated for COPD with IV Solu-Medrol, DuoNebs Continue IV antibiotics Continue monitoring vitals. Still requiring 2 L of oxygen at 92% Continue monitoring. (2) Acute exacerbation of chronic obstructive pulmonary disease: Code(s): J44.1 - Chronic obstructive pulmonary disease with (acute) exacerbation Status: Acute Assessment and Plan: Longstanding smoker and still smokes daily. Continue patient on IV Solu-Medrol [address] patient on scheduled nebulizer treatments with Xopenex. Will also add antibiotics given the patient's report of change in sputum color and mild leukocytosis as the patient may have a bacterial component to his COPD exacerbation. Continue monitoring respiratory status (3) Acute hyponatremia: Code(s): E87.1 - Hypo-osmolality and hyponatremia Status: Acute Assessment and Plan: On arrival it was 129, and with IV fluids it improved to 132 this morning. It appears the patient has had some difficulty with intermittent hyponatremia in the past. I suspect this is at least in part due to his chronic COPD. I suspect the patient may have a small component of volume depletion currently. Discontinue IV fluids at this time. Will recheck BMP in a.m.. (4) CAD (coronary artery disease): Code(s): I25.10 - Atherosclerotic heart disease of [place] coronary artery without angina pectoris Status: Chronic Assessment and Plan: Continue aspirin daily. Denies any chest pain. (5) HTN (hypertension): Code(s): I10 - Essential (primary) hypertension Status: Chronic Assessment and Plan: Blood pressure was 135/72 this morning. Normal. Continue monitoring blood pressure and continue home Medications. (6) Hyperlipidemia: Code(s): E78.5 - Hyperlipidemia, unspecified Status: Chronic Assessment and Plan: Continue statin. Additional Plan Patient has been admitted as observation status. Time Spent With Patient Time with patient: 25 - 35 minutes Subjective Date/time seen: 01/29/21 14:14 Interval history: Date of Service 01/29/21:He reports improvement in his breathing, denies much shortness of breath at this time. He still feels like he is wheezing. Denies any chest pain, fever, chills, nausea, vomiting, diarrhea, abdominal pain, leg swelling, calf pain, Review of Systems Review of Systems: All systems reviewed & are unremarkable except as noted in HPI and below Exam Narrative: Exam Narrative: General: 65-year-old man laying flat in bed with head elevated. Appears comfortable on 2L at this time with no respiratory distress. Some abdominal breathing noted, but denies any SOB or discomfort. Skin: No jaundice or cyanosis. Good skin turgor. Neck: Full range of motion. Supple. Respiratory: Distant breath sounds with expiratory wheezing. No bony chest wall tenderness. Cardiovascular: The heart has a regular rate and rhythm without murmur. Tele shows NSR rate 93 bpm, some tachycardia noted, but no underlying abnormality or arrhythmia. Lower extremities: No lower extremity edema. Distal pulses are easily palpated. No calf tende
--- NOTE | 2021-01-29 15:15 | PC.NURSE ---
On 01/29/21, the student, [Brandon Brown], provided care and completed [facility] on this patient. I have reviewed the student's documentation and agree with the findings.
[2021-01-29] MEDS: oxyCODONE HCL (*CRX) 5 MG TAB IR PO (18:47)
[2021-01-29] MEDS: guaiFENesin 12 HR 600 MG TABCR PO (21:08)
[2021-01-29] MEDS: CYCLOBENZAPRINE HCL 10 MG TABLET PO (23:55)
[2021-01-30] VITALS (13 sets, daily range): BP systolic 124; BP diastolic 87; PULSE 88–112; RESP 18–20; TEMP 36; O2SAT 91–98
[2021-01-30] MEDS: oxyCODONE HCL (*CRX) 5 MG TAB IR PO ×3 (00:45→15:32)
[2021-01-30] MEDS: oxyCODONE/ACETAMINOPHEN (*CRX) 5-325 MG TABLET 1 TABLET PO ×3 (00:45→15:31)
[2021-01-30] MEDS: BENZOCAINE/MENTHOL (*BKC) 18 EA LOZENGE 1 LOZENGE PO (01:11)
[2021-01-30] MEDS: IPRATROPIUM BR 0.02% INH SOLN 0.5 MG/2.5 ML VIAL INHALATION ×3 (02:28→13:51)
[2021-01-30] MEDS: SODIUM CHLORIDE 0.9% IV 1,000 ML 100 ML IV CONT (05:10)
[2021-01-30] MEDS: methylPREDNISolone SOD SUCC 125 MG VIAL 60 MG IV PUSH ×2 (05:10→12:38)
[2021-01-30 05:51] LABS: Anion Gap 2 mmol/L (8-16); Blood Urea Nitrogen 28 mg/dL (9-20); CRP 3.3 mg/dL (<1.0); Calcium 8.7 mg/dL (8.4-10.2); Carbon Dioxide 31 mmol/L (22-30); Chloride 102 mmol/L (98-107); Estimated CRCL calculation 78 ml/min; Estimated Glomerular Filt Rate > 60; Glucose 141 mg/dL (75-110); Potassium 4.8 mmol/L (3.4-5.0); Sodium 135 mmol/L (137-145)
[2021-01-30] MEDS: VENLAFAXINE HCL XR 75 MG CAP.ER.24H 150 MG PO (07:49)
[2021-01-30] MEDS: CHOLECALCIFEROL 1,000 UNITS TABLET 2000 UNITS PO (09:34)
[2021-01-30] MEDS: VITAMIN B COMPLEX/VIT C CAPSULE 1 EACH PO (09:34)
[2021-01-30] MEDS: CYANOCOBALAMIN 1,000 MCG TABLET 5000 MCG PO (09:34)
[2021-01-30] MEDS: carvediloL 25 MG TABLET PO (09:34)
[2021-01-30] MEDS: guaiFENesin 12 HR 600 MG TABCR PO (09:34)
[2021-01-30] MEDS: FOLIC ACID 1 MG TABLET PO ×2 (09:34→12:38)
[2021-01-30] MEDS: ENOXAPARIN 40 MG/0.4 ML SYRINGE SUB-Q (09:35)
[2021-01-30] MEDS: ARIPiprazole 2 MG TABLET PO (09:35)
[2021-01-30] MEDS: ASPIRIN 81 MG ENTERIC TABLET PO (09:35)
[2021-01-30] MEDS: ATORVASTATIN 20 MG TABLET PO (09:35)
[2021-01-30] MEDS: MECLIZINE HCL 25 MG TABLET PO (09:35)
[2021-01-30] MEDS: MULTIVITAMINS THERAPEUTIC TAB (*BKC) 1 TABLET PO (09:35)
[2021-01-30] MEDS: FLUTICASONE/UMECLIDIN/VILANTER 100-62.5-25 MCG ELLIPTA 1 PUFF INHALATION (09:38)
--- NOTE | 2021-01-30 14:03 | PM.DS ---
DS: Admitting Diagnosis Admitting Diagnosis Admitting Diagnosis: SOB DS: Discharge Diagnosis Discharge Diagnosis (1) Acute respiratory failure with hypoxia: Code(s): J96.01 - Acute respiratory failure with hypoxia Status: Acute Assessment and Plan: ABG on admission showing pO2 at 60. Respiratory symptoms related to COPD exacerbation and bronchitis. Hypoxia is due to COPD exacerbation and bronchitis. With treatment, he had clinical improvement. He was weaned to room air. (2) Acute exacerbation of chronic obstructive pulmonary disease: Code(s): J44.1 - Chronic obstructive pulmonary disease with (acute) exacerbation Status: Acute Assessment and Plan: Longstanding smoker and still smokes daily. He was treated with IV Solu-Medrol and scheduled nebulizer treatments. CTA chest showing no PNA but abx added for bronchitis. Cough improved and sputum clear now. Still some wheezing but patient feels much better and feels ready for discharge. (3) Acute hyponatremia: Code(s): E87.1 - Hypo-osmolality and hyponatremia Status: Acute Assessment and Plan: On arrival sodium was 129 and with IV fluids it improved to 135 this morning. It appears the patient has had some difficulty with intermittent hyponatremia in the past. (4) CAD (coronary artery disease): Code(s): I25.10 - Atherosclerotic heart disease of [place] coronary artery without angina pectoris Status: Chronic Assessment and Plan: No complaints of chest pain. We continued daily aspirin. (5) HTN (hypertension): Code(s): I10 - Essential (primary) hypertension Status: Chronic Assessment and Plan: Blood pressure was monitored closely. BP remained well controlled. (6) Hyperlipidemia: Code(s): E78.5 - Hyperlipidemia, unspecified Status: Chronic Assessment and Plan: LFTs okay. We continued his statin. (7) Tobacco abuse: Code(s): Z72.0 - Tobacco use Status: Acute Assessment and Plan: Patient was educated about the benefits of smoking cessation DS: Summary Hospital Course Reason for hospitalization: 65yo male here for shortness of breath. Please see H&P for details Hospital Course: Please see above for details of hospital coarse. Status at Discharge Cognitive/behavioral status at discharge: stable Time Spent with Patient Time attestation: Total time spent providing and/or coordinating discharge services:32 minutes Time spent: Greater than 30 minutes Exam Narrative: Exam Narrative: AF 96.8 124/87 98 18 98% ra Gen - NARD Chest - a few scattered expiraroty wheezes, nml RR, no conversational dyspnea CV - RRR S1/S2 Abd - Soft, NT/ND, Positive BS Ext - No pedal edema, 2+ DP bilaterally Neuro - Alert and oriented x4. Nonfocal exam. Psych - Nml mood and affect Skin - Warm and dry DS: Data Data Completed and Pending Labs on day of discharge: Labs from last 24 hours 01/30/21 05:11 Sodium 135 L Potassium 4.8 Chloride 102 Carbon Dioxide 31 H Anion Gap 2 L BUN 28 H Creatinine 0.80 Estim Creat Clear Calc 78 Estimated GFR > 60 Glucose 141 H Calcium 8.7 C-Reactive Protein 3.3 H Discharge Plan Discharge Attending physician on discharge: Nestor Sosa Discharging Clinician: Nestor Sosa Anticipated Discharge Date/Time: 01/30/21 14:35 Patient Disposition: Home, Self-Care Activity: as tolerated Diet: regular Discharge Instructions: Please avoid large gathering, wear face coverings in public and practice social distance. Please complete your antibiotic course even if you are starting to feel
== END 2021-01-30 15:55 | disposition home or self-care (01) ==
LOC: ANHED 16:14 → ANH2MED 21:22
PROVIDERS: Physician Assistant; Admitting Provider Internal Medicine; Emergency Provider Nurse Practitioner; PCP Family Medicine; Visit Provider Internal Medicine
DX: J44.1 Chronic obstructive pulmonary disease with (acute) exacerbation (principal); J96.01 Acute respiratory failure with hypoxia; I25.10 Atherosclerotic heart disease of native coronary artery without angina pectoris; I10 Essential (primary) hypertension; E78.5 Hyperlipidemia, unspecified; F17.210 Nicotine dependence, cigarettes, uncomplicated
CPT/HCPCS: 36415; 36600; 71046; 71275; 80048; 82570; 82805; 83690; 84300; 84450; 84460; 84484; 85025; 85027; 86140; 93005; 94640; 96361; 96365; 96366; 96367; 96372; 96374; 96375; 96376; 99285; A9270; G0378; J0456; J0696; J1650; J2930; J7030; Q9967

== ENCOUNTER 2021-02-17 08:56 | Emergency (ER) | payer OTHER, MEDICARE, SELFPAY ==
--- NOTE | ~2021-02-17 | XR_ITS ---
EXAMINATION: XR thoracic spine 3V EXAM DATE: 02/17/2021 10:57 INDICATION: Fall, mid back pain. Initial encounter. TECHNIQUE: Frontal and lateral projections of the thoracic spine as well as lateral swimmers projecti on of the upper thoracic spine for interpretation. There is no prior study for comparison. FINDINGS: There is moderate thoracic spondylosis. There our large lower thoracic bridging endplate o steophytes. Mild diffuse loss of mid and lower thoracic vertebral body heights. No acute fracture merced e is specifically identified. T11 and T12 vertebral bodies are fused. Accounting for differences in t echnique, there is no significant interval change. The vertebral bodies are aligned in the AP dimensi on. There are no acute fractures identified. Paraspinal soft tissue is unremarkable. IMPRESSION: Mild diffuse loss of vertebral body heights appears not significantly changed. Difficult to exclude acute component to one of these chronic appearing compression fractures. Moderate spondylo sis. Reviewed, dictated and finalized at [facility]. IMPRESSION: Mild diffuse loss of vertebral body heights appears not significant ly changed. Difficult to exclude acute component to one of these chronic appear ing compression fractures. Moderate spondylosis.
--- NOTE | ~2021-02-17 | XR_ITS ---
EXAMINATION: [id number] DATE: 02/17/2021 10:57 INDICATION: Left rib pain. Fall. TECHNIQUE: A frontal view of the chest and 4 views of the left ribs were obtained. COMPARISON: Chest 2 views 01/28/2021, 08/31/2020 FINDINGS: There is chronic marked elevation of right hemidiaphragm. There is mild atelectasis at the lung bases. No pleural effusion or pneumothorax. The heart size is normal. There is a fracture of lef t fifth rib. IMPRESSION: 1. Fracture of left fifth rib. 2. Chronic marked elevation of right hemidiaphragm. 3. Mild atelectasis at the lung bases. Reviewed, dictated and finalized at [facility].
[2021-02-17 09:11] VITALS: BP 112/56; PULSE 96; RESP 18; TEMP 36.6; O2SAT 95
--- NOTE | 2021-02-17 10:02 | ED.GENADULT ---
HPI - General Adult General Chief complaint: Fall Stated complaint: fall, chest/t-spine pain Time Seen by Provider: 02/17/21 09:44 History of Present Illness HPI narrative: This note was started erroneously. Please disregard. Please see my other note from today for full ED encounters. Related Data Home Medications Medication Instructions Recorded Confirmed B-complex with vitamin C 1 tablet PO DAILY 10/17/19 01/28/21 aripiprazole 2 mg tablet 2 mg PO DAILY 10/17/19 01/28/21 aspirin 81 mg tablet,delayed 81 mg PO DAILY 10/17/19 01/28/21 release atorvastatin 20 mg tablet 20 mg PO DAILY 10/17/19 01/28/21 cholecalciferol (vitamin D3) 25 2,000 unit PO DAILY cap 10/17/19 01/28/21 mcg (1,000 unit) capsule cyclobenzaprine 10 mg tablet 10 mg PO Q6-8H PRN 10/17/19 01/28/21 multivitamin 1 cap PO DAILY 10/17/19 01/28/21 oxycodone-acetaminophen 10 mg-325 1 tablet PO Q6-8H PRN 10/17/19 01/28/21 mg tablet Trelegy Ellipta 1 inh INHALATION DAILY 08/29/20 01/28/21 methotrexate sodium 20 mg PO WEEKLY 08/29/20 01/29/21 mecobalamin (vitamin B12) 5,000 5,000 mcg PO DAILY 09/28/20 01/28/21 mcg lozenge Orencia 125 mg SUBCUT WEEKLY 01/28/21 01/28/21 albuterol sulfate 90 mcg INHALATION TID 01/28/21 01/28/21 aripiprazole 2 mg PO DAILY 01/28/21 01/28/21 bupropion HCl (smoking deter) 150 mg PO DAILY 01/28/21 01/28/21 folic acid 1 mg PO TID 01/28/21 01/28/21 ipratropium-albuterol 3 ml INHALATION TID PRN 01/28/21 01/28/21 meclizine 25 mg PO BID 01/28/21 01/28/21 venlafaxine 150 mg PO DAILY 01/28/21 01/28/21 Allergies Allergy/AdvReac Type Severity Reaction Status Date / Time vancomycin Allergy Unknown Flushing Verified 02/17/21 09:20 PMFSH Past Medical History Medical History (Updated 02/17/21 @ 12:58 by Cosmo Tyler PA-C) Anxiety and depression Bipolar 1 disorder CAD (coronary artery disease) 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 Repeat evaluation and was in 2017. Chronic back pain Constipation due to opioid therapy COPD (chronic obstructive pulmonary disease) Depression History of MRSA infection History of stomach ulcers History of suicide attempt multiple times HTN (hypertension) Hyperlipidemia Ileus MRSA infection Osteopenia determined by x-ray Psoriatic arthritis Surgical History Surgical History H/O heart artery stent 1 stent 2004 with a repeat catheterization in 2006 no intervention was done at that time H/O toe surgery hammertoe repair History of ankle surgery left heel repaired History of appendectomy 1986 History of hip replacement Hx of rhinoplasty Family History Family History Father COPD (chronic obstructive pulmonary disease) Mother Cancer Social History Social History (Updated 01/29/21 @ 02:07 by Angelita Maldonaod DO) Social History: He lives in [place] with his of 16 years. He continues to smoke and is down to a pack a cigarettes a day. He has multiple dogs and cats. He has 6 adopted children. 3 from this marriage in 3 from a previous marriage. No biological children. 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 But has not had anything to drink in last month. Primary care physician: Dr. Yogi Soriano Code status: Full code Healthcare power of transactional attorney: Smoking packs per day: 1 Smoking cigarettes per day: 20.0 Years smoked: 45 Smoking pack-years: 45.00 Smoking status: Current every day smoker Additional smoking assessment comments: trying to quit Alcohol intake: never Drinks per week: 1 Substance use: current Substance use type: opiates Other substance usage details: Prescription opiates Gender identity (if verbalized by the patient): Male Spiritual care concerns: No
--- NOTE | 2021-02-17 10:43 | ED.GENADULT ---
HPI - General Adult General Chief complaint: Fall Stated complaint: fall, chest/t-spine pain Time Seen by Provider: 02/17/21 09:44 History of Present Illness HPI narrative: Patient is a 65-year-old male with history of COPD and chronic back pain and on Percocet chronically who comes to the ED today complaining of pain in left-sided chest and upper back after a mechanical fall 3 days ago. Patient reports that 3 days ago he was doing some yard work and he tripped over his weedeater and fell forwards onto his patio. This was a ground-level fall. He attempted to catch himself but ended up hitting his left side of his chest against the patio. Also suffered an abrasion to his chin. He did not hit his head or lose consciousness. Denies any nausea or vomiting. Denies any shortness of breath. The chest pain is constant and seems to be worsening. Rates the pain as 9 out of 10 in severity and this is after taking his on Percocet about 2 hours ago. The pain is made worse with deep breathing and with coughing. He is not short of breath. He has a chronic productive cough due to his COPD and he is able to cough up his secretions. He is not on blood thinners other than a baby aspirin which he takes daily. Related Data Home Medications Medication Instructions Recorded Confirmed B-complex with vitamin C 1 tablet PO DAILY 10/17/19 01/28/21 aripiprazole 2 mg tablet 2 mg PO DAILY 10/17/19 01/28/21 aspirin 81 mg tablet,delayed 81 mg PO DAILY 10/17/19 01/28/21 release atorvastatin 20 mg tablet 20 mg PO DAILY 10/17/19 01/28/21 cholecalciferol (vitamin D3) 25 2,000 unit PO DAILY cap 10/17/19 01/28/21 mcg (1,000 unit) capsule cyclobenzaprine 10 mg tablet 10 mg PO Q6-8H PRN 10/17/19 01/28/21 multivitamin 1 cap PO DAILY 10/17/19 01/28/21 oxycodone-acetaminophen 10 mg-325 1 tablet PO Q6-8H PRN 10/17/19 01/28/21 mg tablet Trelegy Ellipta 1 inh INHALATION DAILY 08/29/20 01/28/21 methotrexate sodium 20 mg PO WEEKLY 08/29/20 01/29/21 mecobalamin (vitamin B12) 5,000 5,000 mcg PO DAILY 09/28/20 01/28/21 mcg lozenge Orencia 125 mg SUBCUT WEEKLY 01/28/21 01/28/21 albuterol sulfate 90 mcg INHALATION TID 01/28/21 01/28/21 aripiprazole 2 mg PO DAILY 01/28/21 01/28/21 bupropion HCl (smoking deter) 150 mg PO DAILY 01/28/21 01/28/21 folic acid 1 mg PO TID 01/28/21 01/28/21 ipratropium-albuterol 3 ml INHALATION TID PRN 01/28/21 01/28/21 meclizine 25 mg PO BID 01/28/21 01/28/21 venlafaxine 150 mg PO DAILY 01/28/21 01/28/21 Allergies Allergy/AdvReac Type Severity Reaction Status Date / Time vancomycin Allergy Unknown Flushing Verified 02/17/21 09:20 Review of Systems Constitutional: Constitutional: Reports as per HPI, Denies fever(s), Denies night sweats and Denies weakness Cardiovascular: Cardiovascular: Reports chest pain, Denies edema, Denies leg edema, Denies dyspnea and Denies orthopnea Comments: See HPI for left-sided chest wall pain Respiratory: Respiratory: Denies cough and Denies dyspnea Gastrointestinal: Gastrointestinal: Denies abdominal pain, Denies constipation, Denies diarrhea, Denies nausea and Denies vomiting Musculoskeletal: Musculoskeletal: Denies abnormal gait, Reports back pain, Denies numbness and Denies tingling Comments: See HPI for upper back pain Neurologic: Denies Abnormal speech present, Denies abnormal gait, Denies numbness, Denies tingling and Denies weakness Psychiatric: Psychiatric: Denies homicidal ideation and Denies suicidal ideation PMFSH Past Medical History Medical History (Updated 02/17/21 @ 12:58 by Cosmo Tyler PA-C) Anxiety and depression Bipolar 1 disorder CAD (coronary artery disease) 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 Repeat evaluation and was in 2017. Chronic back pain Constipation due to opioid therapy COPD (chronic obstructive pulmonary disease) Depression History of MRSA infection History of stomach ulcers History of suicide attempt multiple times HTN (hypertension) H
[2021-02-17] MEDS: KETOROLAC (*BKC) 60 MG/2 ML VIAL IM (10:45)
[2021-02-17 13:17] VITALS: BP 112/68; PULSE 78; RESP 22; O2SAT 97
== END 2021-02-17 13:20 | disposition home or self-care (01) ==
PROVIDERS: Emergency Provider Emergency Medicine; PCP Family Medicine
DX: S22.32XA Fracture of one rib, left side, initial encounter for closed fracture (principal); J44.9 Chronic obstructive pulmonary disease, unspecified; I10 Essential (primary) hypertension; E78.5 Hyperlipidemia, unspecified; M85.80 Other specified disorders of bone density and structure, unspecified site; L40.50 Arthropathic psoriasis, unspecified; F31.9 Bipolar disorder, unspecified; F41.9 Anxiety disorder, unspecified; Z86.14 Personal history of Methicillin resistant Staphylococcus aureus infection; M54.9 Dorsalgia, unspecified; G89.29 Other chronic pain; Z79.82 Long term (current) use of aspirin; Z95.5 Presence of coronary angioplasty implant and graft; Z96.649 Presence of unspecified artificial hip joint; F17.210 Nicotine dependence, cigarettes, uncomplicated; M47.814 Spondylosis without myelopathy or radiculopathy, thoracic region; W19.XXXA Unspecified fall, initial encounter
CPT/HCPCS: 71101; 72072; 96372; 99283; J1885

== ENCOUNTER 2021-05-06 00:43 | Inpatient (IN) | payer OTHER, MEDICARE, SELFPAY ==
[2021-05-06] VITALS (31 sets, daily range): BP systolic 107–153; BP diastolic 63–94; PULSE 71–118; RESP 14–29; TEMP 36.3–36.8; O2SAT 85–99; BMI 29.1
--- NOTE | ~2021-05-06 | XR_ITS ---
EXAMINATION: XR chest 1V portable DATE: 05/07/2021 05:36 INDICATION: COPD exacerbation TECHNIQUE: frontal view of the chest was obtained. COMPARISON: Chest radiograph dated 05/06/2021 FINDINGS: Unchanged small lung volumes with chronic elevation of the right hemidiaphragm. Primarily linear opac ities consistent with discoid atelectasis at the bilateral lung bases with blunting at the costophren ic angles consistent with small bilateral pleural effusions. No pneumothorax. The cardiomediastinal s ilhouette is normal. IMPRESSION: 1. Unchanged small lung volumes with chronic elevation right hemidiaphragm and unchanged bibasilar at electasis or scarring. 2. Likely small bilateral pleural effusions. Reviewed, dictated and finalized at location A. IMPRESSION: 1. Unchanged small lung volumes with chronic elevation right hemidiaphragm and unchanged bibasilar atelectasis or scarring. 2. Likely small bilateral pleural effusions.
--- NOTE | ~2021-05-06 | XR_ITS ---
XR chest 1V portable 05/08/2021 08:11 Indication: COPD exacerbation Procedure: AP portable chest Comparison: Comparison to multiple prior studies sequentially, with oldest reviewed study dated 08/13. Findings: Bibasilar infiltrates. Shallow inspiration with chronic elevation of the right diaphragm. S mall right pleural effusion. No pneumothorax. Stable cardiomediastinal silhouette. Impression: 1: Bibasilar infiltrates may represent atelectasis/scarring and/or pneumonia. 2: Small right pleural effusion. Reviewed, dictated and finalized at location A. Impression: 1: Bibasilar infiltrates may represent atelectasis/scarring and/or pneumonia. 2: Small right pleural effusion.
--- NOTE | ~2021-05-06 | XR_ITS ---
EXAMINATION: XR chest 1V portable DATE: 05/06/2021 01:42 INDICATION: Shortness of breath TECHNIQUE: frontal view of the chest was obtained. COMPARISON: Chest radiograph dated 02/17/[address] dated 01/28/2021 FINDINGS: Lung volumes remain small with chronic elevation the right hemidiaphragm. Linear bands of discoid ate lectasis/scarring at the bilateral lung bases. Blunting at the costophrenic angle suggesting tiny teja ateral pleural effusions. No pneumothorax. The cardiomediastinal silhouette is normal. Moderate to se ayse thoracic spondylosis. IMPRESSION: 1. Small lung volumes with chronic elevation right hemidiaphragm and unchanged bibasilar atelectasis/ scarring. 2. Possible tiny bilateral pleural effusions. Reviewed, dictated and finalized at location A. IMPRESSION: 1. Small lung volumes with chronic elevation right hemidiaphragm and unchanged bibasilar atelectasis/scarring. 2. Possible tiny bilateral pleural effusions.
--- NOTE | 2021-05-06 00:44 | ECG_ITS ---
Measurements Intervals [place] Rate: 100 P: 62 IN: 177 QRS: -14 QRSD: 94 T: 64 QT: 340 QTc: 440 Interpretive Statements SINUS TACHYCARDIA BORDERLINE R WAVE PROGRESSION, ANTERIOR LEADS BASELINE ARTIFACT- I, II, III, AVL, AVF, V4-V6 BORDERLINE ECG Electronically Signed On 05-06-2021 6:25:07 CDT by Jeronimo Snow D.O.
--- NOTE | 2021-05-06 00:57 | ED.SOB ---
HPI - SOB/Dyspnea General Chief Complaint: Shortness of Breath/Dyspnea Stated Complaint: sob, wheezing Time Seen by Provider: 05/06/21 00:54 Source: patient Mode of arrival: ambulatory Limitations: no limitations History of Present Illness HPI Narrative: Patient is a 65-year-old male complain of shortness of breath, cough and wheezing, that started tonight after being exposed to a room that was newly painted by his , which he states that the smell of the paint caused him to cough and wheeze. Patient has a history of COPD and respiratory failure, not on home O2. Patient denies any chest pain, abdominal pain, nausea, vomiting, fever or chills. Related Data Home Medications Medication Instructions Recorded Confirmed B-complex with vitamin C 1 tablet PO DAILY 10/17/19 01/28/21 aripiprazole 2 mg tablet 2 mg PO DAILY 10/17/19 01/28/21 aspirin 81 mg tablet,delayed 81 mg PO DAILY 10/17/19 01/28/21 release atorvastatin 20 mg tablet 20 mg PO DAILY 10/17/19 01/28/21 cholecalciferol (vitamin D3) 25 2,000 unit PO DAILY cap 10/17/19 01/28/21 mcg (1,000 unit) capsule cyclobenzaprine 10 mg tablet 10 mg PO Q6-8H PRN 10/17/19 01/28/21 multivitamin 1 cap PO DAILY 10/17/19 01/28/21 oxycodone-acetaminophen 10 mg-325 1 tablet PO Q6-8H PRN 10/17/19 01/28/21 mg tablet Trelegy Ellipta 1 inh INHALATION DAILY 08/29/20 01/28/21 methotrexate sodium 20 mg PO WEEKLY 08/29/20 01/29/21 mecobalamin (vitamin B12) 5,000 5,000 mcg PO DAILY 09/28/20 01/28/21 mcg lozenge Orencia 125 mg SUBCUT WEEKLY 01/28/21 01/28/21 albuterol sulfate 90 mcg INHALATION TID 01/28/21 01/28/21 aripiprazole 2 mg PO DAILY 01/28/21 01/28/21 bupropion HCl (smoking deter) 150 mg PO DAILY 01/28/21 01/28/21 folic acid 1 mg PO TID 01/28/21 01/28/21 ipratropium-albuterol 3 ml INHALATION TID PRN 01/28/21 01/28/21 meclizine 25 mg PO BID 01/28/21 01/28/21 venlafaxine 150 mg PO DAILY 01/28/21 01/28/21 Allergies Allergy/AdvReac Type Severity Reaction Status Date / Time vancomycin Allergy Unknown Flushing Verified 05/06/21 00:58 Review of Systems Review of Systems: All systems reviewed & are unremarkable except as noted in HPI and below Constitutional: Constitutional: Denies body ache(s), Denies chills, Denies excessive sweating, Denies fatigue, Denies fever(s), Denies headache(s), Denies lethargy, Denies malaise, Denies weakness and Denies weight loss Eyes: Eyes: Denies blurry vision, Denies change in vision and Denies loss of vision ENT: Denies dizziness, Denies ear discharge, Denies headache(s), Denies lip swelling, Denies epistaxis, Denies nasal congestion, Denies neck pain, Denies throat swelling and Denies tongue swelling Cardiovascular: Cardiovascular: Denies chest pain, Denies chest pain at rest, Denies chest pain with activity, Denies diaphoresis, Denies rapid heart rate, Denies edema, Denies irregular heart rhythm, Denies lightheadedness and Denies palpitations Respiratory: Respiratory: Denies chest congestion and Denies hemoptysis Gastrointestinal: Gastrointestinal: Denies abdominal pain, Denies melena, Denies hematochezia, Denies diarrhea, Denies nausea, Denies vomiting and Denies hematemesis Musculoskeletal: Musculoskeletal: Denies abnormal gait, Denies deformity, Denies joint swelling, Denies limited range of motion, Denies neck pain and Denies numbness Neurologic: Denies Abnormal speech present, Denies abnormal gait, Denies confusion, Denies dizziness, Denies headache(s), Denies focal weakness, Denies loss of vision, Denies numbness, Denies Other visual disturbances, Denies Sensory deficit (Neuro) and Denies weakness Psychiatric: Psychiatric: Denies confusion, Denies depression, Denies auditory hallucinations, Denies homicidal ideation and Denies suicidal ideation Endocrine: Endocrine: Denies cold intolerance, Denies excessive sweating, Denies fatigue, Denies heat intolerance and Denies palpitations Hematologic/Lymphatic: Hematologic/Lymphatic: Denies easy bleeding and
[2021-05-06] MEDS: IPRATROPIUM BR 0.02% INH SOLN 0.5 MG/2.5 ML VIAL INHALATION ×4 (01:18→20:27)
[2021-05-06] MEDS: ALBUTEROL SULFATE NEB 2.5 MG/0.5 ML INH 5 MG INHALATION ×4 (01:18→20:27)
[2021-05-06 01:20] LABS: Basophils Percent Auto 0.1 % (0.2-1.2); Eosinophils Absolute Auto 0.1 K/mm3 (0-0.3); Eosinophils Percent Auto 0.4 % (0-4.4); Hematocrit 41.3 % (42.0-52.0); Hemoglobin 13.3 g/dL (14.0-18.0); Immature Granulocyte Absolute 0.09 K/mm3 (0.00-0.031); Immature Granulocyte Percent A 0.7 % (0-0.5); Lymphocytes Absolute Auto 2.07 K/mm3 (0.9-3.2); Lymphocytes Percent Auto 15.1 % (18.3-44.2); Mean Corpuscular HGB Conc 32.2 g/dl (32-36); Mean Corpuscular Hemoglobin 32.8 pg (26-34); Mean Corpuscular Volume 101.7 fl (80-100); Mean Platelet Volume 9.8 fl (7.4-10.4); Monocytes Absolute Auto 1.4 K/mm3 (0.1-0.6); Monocytes Percent Auto 9.9 % (2.6-8.5); Neutrophils Absolute Auto 10.1 K/mm3 (1.3-6.7); Neutrophils Percent Auto 73.8 % (45.5-73.1); Platelet Count Result 270 k/mm3 (150-375); Red Blood Count 4.06 M/mm3 (4.6-6.20); Red Cell Distribution Width 14.3 % (11.5-14.5); White Blood Count 13.7 K/mm3 (4.5-10.0)
[2021-05-06 01:21] LABS: Anion Gap 4 mmol/L (8-16); Blood Urea Nitrogen 16 mg/dL (9-20); Calcium 8.8 mg/dL (8.4-10.2); Carbon Dioxide 32 mmol/L (22-30); Chloride 96 mmol/L (98-107); Estimated CRCL calculation 78 ml/min; Estimated Glomerular Filt Rate > 60; Glucose 100 mg/dL (75-110); Potassium 4.1 mmol/L (3.4-5.0); Sodium 132 mmol/L (137-145)
[2021-05-06 01:25] LABS: Alveolar/Arterial O2 Gradient 70.5 mmHg; Base Excess ABG 4.5 mEq/l (+/-2.0); Carboxyhemoglobin 5.3 % THb (0-2.0); Fractional Inspired Oxygen 28 %; HCO3 ABG 32.4 mEq/l (22.0-26.0); Methemoglobin ABG 0.2 %THb (0-1.5); Oxygen Content ABG 16.4 %vol (16.0-22.0); Oxyhemoglobin 83.8 % THb (90.0-100.0); PO2 ABG 54.1 mmHg (80.0-100.0); PO2 FiO2 Ratio Arterial Blood 1.93 %; Reduced Hemoglobin 10.7 %THb (0-5.0); Total Hemoglobin 13.9 g/dL (12.0-18.0); pH ABG 7.325 (7.350-7.450)
[2021-05-06 01:30] LABS: PCO2 ABG 63.6 mmHg (35.0-45.0)
[2021-05-06 01:33] LABS: NT Pro B Type Natriuretic Pept 527 pg/mL (5-100); Troponin I < 0.012 ng/mL (0.000-0.034)
[2021-05-06 01:36] LABS: Device NASAL CANNULA; Modified Allen's Test Pass; Site Drawn RIGHT RADIAL
[2021-05-06] MEDS: methylPREDNISolone SOD SUCC 125 MG VIAL IV PUSH (01:38)
[2021-05-06 01:39] LABS: Oxygen Saturation ABG 84.8 % (95.0-100.0)
[2021-05-06] MEDS: HYDROcodone/acetaminophen (*CRX) 5-325 MG TABLET 1 TAB PO (01:43)
--- NOTE | 2021-05-06 01:43 | PC.NURSE ---
Pt work of breathing has not improved. RN noticed increase in pt. discomfort. VORB initiate Bipap
[2021-05-06] MEDS: SODIUM CHLORIDE 0.9% IV 50 ML 200 ML (02:15)
[2021-05-06] MEDS: PROMETHAZINE HCL 25 MG/ML AMPUL 12.5 MG IV PUSH (02:30)
--- NOTE | 2021-05-06 03:25 | ADMGEN ---
This patient, Israel Plascencia Sr., was admitted to Intensive Care Unit-8 at 0315 from the Emergency Department. Patient/family oriented to hospital policies and general routines including ID bracelet, bed and alarms, visiting hours, pain management, procedures, bathroom and other care routines, personal items, smoking policy, room service/diet, and visiting hours. Information on how to activate the Rapid Response Team has been discussed. Patient/Family are encouraged to report perceived risks to care and to ask questions if they do not understand what they are told or what they should do.
--- NOTE | 2021-05-06 04:17 | PM.IMHP ---
H&P: HPI History of Present Illness Date/Time: 05/06/21 04:17 Chief Complaint: shortness of breath Narrative: This is a 65-year-old male with past medical history significant for COPD/emphysema tobacco dependence psoriatic arthritis diastolic heart failure dyslipidemia, mental illness. Patient came to the emergency room after a he became progressively short of breath according to the patient he entered the room were recent painting in has taken place and he was unable to abort an acute exacerbation by using his inhalers. Patient denies any fevers chills or rigors, no nausea no vomiting however at the time of my visit patient had been on BiPAP therapy in the emergency room and he was nauseated. He denies chest pain leg swelling claudication PND or orthopnea he has a currently an everyday smoker. Preliminary workup was significant for an ABG with pCO2 of 63 a and a PO2 of 54. Patient was immediately placed on BiPAP and received neb treatment and systemic steroids. Patient is being admitted for further evaluation and treatment. Review of Systems Review of Systems: ROS unobtainable: Yes unobtainable due to medical condition (Currently on BiPAP) PMFSH Past Medical History Medical History Anxiety and depression Bipolar 1 disorder CAD (coronary artery disease) 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 Repeat evaluation and was in 2017. Chronic back pain Constipation due to opioid therapy COPD (chronic obstructive pulmonary disease) Depression History of MRSA infection History of stomach ulcers History of suicide attempt multiple times HTN (hypertension) Hyperlipidemia Ileus MRSA infection Osteopenia determined by x-ray Psoriatic arthritis Surgical History Surgical History H/O heart artery stent 1 stent 2004 with a repeat catheterization in 2006 no intervention was done at that time H/O toe surgery hammertoe repair History of ankle surgery left heel repaired History of appendectomy 1986 History of hip replacement Hx of rhinoplasty Family History Family History Father COPD (chronic obstructive pulmonary disease) Mother Cancer Social History Social History Social History: He lives in [place] with his of 16 years. He continues to smoke and is down to a pack a cigarettes a day. He has multiple dogs and cats. He has 6 adopted children. 3 from this marriage in 3 from a previous marriage. No biological children. 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 But has not had anything to drink in last month. Primary care physician: Dr. 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: Smoking packs per day: 1 Smoking cigarettes per day: 20.0 Years smoked: 50 Smoking pack-years: 50.00 Smoking status: Current every day smoker Tobacco type: cigarettes Second hand tobacco smoke exposure: Yes Additional smoking assessment comments: trying to quit Alcohol intake: current Drinks per week: 1 Substance use: never Substance use type: does not use Other substance usage details: Prescription opiates Gender identity (if verbalized by the patient): Male Spiritual care concerns: No Meds Home Medications and Allergies Home Medications Medication Instructions Recorded Confirmed Type B-complex with vitamin C 1 tablet PO DAILY 10/17/19 05/06/21 History aspirin 81 mg tablet,delayed 81 mg PO DAILY 10/17/19 05/06/21 History release atorvastatin 20 mg tablet 20 mg PO DAILY 10/17/19 05/06/21 History cholecalciferol (vitamin D3) 25 2,000 unit PO DAILY cap 10/17/19 05/06/21 History mcg (1,000
[2021-05-06] MEDS: methylPREDNISolone SOD SUCC 125 MG VIAL 60 MG IV PUSH (06:50)
[2021-05-06] MEDS: buPROPion HCL SR (12 HR) 150 MG TAB PO (08:49)
[2021-05-06] MEDS: ATORVASTATIN 20 MG TABLET PO (08:49)
[2021-05-06] MEDS: ARIPiprazole 2 MG TABLET PO (08:49)
[2021-05-06] MEDS: VENLAFAXINE HCL XR 75 MG CAP.ER.24H 150 MG PO (08:50)
[2021-05-06] MEDS: carvediloL 25 MG TABLET PO ×2 (08:50→20:07)
[2021-05-06 08:53] LABS: Alveolar/Arterial O2 Gradient 85.7 mmHg; Fractional Inspired Oxygen 30 %; HCO3 ABG 30.8 mEq/l (22.0-26.0); Oxygen Content ABG 18.1 %vol (16.0-22.0); Oxygen Saturation ABG 93.9 % (95.0-100.0); Oxyhemoglobin 91.8 % THb (90.0-100.0); PO2 ABG 69.5 mmHg (80.0-100.0); PO2 FiO2 Ratio Arterial Blood 2.32 %; pH ABG 7.407 (7.350-7.450)
[2021-05-06 08:54] LABS: Device NON-INVASIVE VENT; Modified Allen's Test Pass; Site Drawn LEFT RADIAL
[2021-05-06 08:55] LABS: Non-Invasive Expiratory Pressure 5 CMH2O; Non-Invasive Inspiratory Pressure 12 CMH2O; Non-Invasive Vent Rate 12 /MIN
--- NOTE | 2021-05-06 12:02 | PM.CNPUL ---
Assessment and Plan Assessment and plan (1) Acute exacerbation of chronic obstructive pulmonary disease: Code(s): J44.1 - Chronic obstructive pulmonary disease with (acute) exacerbation Status: Acute Assessment and Plan: She carries a diagnosis of COPD and presents with wheezing and shortness of breath after being exposed to a room that was freshly painted. This may represent a COPD exacerbation or reactive airways disease from exposure to the pain. Patient states that he has improved with bronchodilators, steroids and ceftriaxone/levaquin At this time I will continue albuterol 2.5 mg nebs Q 6 hours, ipratropium 0.5 mg nebs q.6 hours, and Solu-Medrol 40 IV q.6. I will continue ceftriaxone andlevaquin empirically for possible pneumonia (2) Acute respiratory failure with hypoxia and hypercapnia: Code(s): J96.01 - Acute respiratory failure with hypoxia; J96.02 - Acute respiratory failure with hypercapnia Status: Acute Assessment and Plan: Patient with acute hypercarbic and hypoxemic respiratory failure on presentation. Patient is has been placed on BiPAP. Patient states that he is comfortable and his repeat blood gas on BiPAP demonstrates a pH of 7.41/50/70. At this time patient can utilize BiPAP p.r.n.. Supplemental oxygen to maintain saturations approximately 90-94%. Will follow with you History of Present Illness History of Present Illness Consult date: 05/06/21 Reason for consult: COPD Chief complaint: ACUTE RESPIRATORY FAILURE, COPD Narrative: this is a new pulmonary consult for COPD exacerbation This 65-year-old man with a history of COPD on trelegy inhaler, hypertension, anxiety, depression, chronic pain, psoriatic arthritis, CHF who presented to the emergency department on 05/06 after he became acutely short of breath when he walked into a room that was freshly painted. He denied any fevers, chills, rigors, nausea, vomiting prior to this. Patient presented to the emergency room and was in respiratory distress with a blood gas of 7.33/64/54 on 2 L nasal cannula. patient was placed immediately on BiPAP. repeat blood gas demonstrated a pH of 7.41/50/70 on BiPAP 12/5 and 30%. Patient also had wheezes and was treated for COPD exacerbation with albuterol nebs, ipratropium nebs, Solu-Medrol. 05/06 When I saw the patient he was on BiPAP. Patient was comfortable and said that he had improved. He felt he was in no respiratory distress and appeared comfortable on the BiPAP. Review of Systems Review of Systems: Narrative: Unable to obtain as on BiPAP [facility] Past Medical History Medical History Anxiety and depression Bipolar 1 disorder CAD (coronary artery disease) 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 Repeat evaluation and was in 2017. Chronic back pain Constipation due to opioid therapy COPD (chronic obstructive pulmonary disease) Depression History of MRSA infection History of stomach ulcers History of suicide attempt multiple times HTN (hypertension) Hyperlipidemia Ileus MRSA infection Osteopenia determined by x-ray Psoriatic arthritis Surgical History Surgical History H/O heart artery stent 1 stent 2004 with a repeat catheterization in 2006 no intervention was done at that time H/O toe surgery hammertoe repair History of ankle surgery left heel repaired History of appendectomy 1986 History of hip replacement Hx of rhinoplasty Family History Family History Father COPD (chronic obstructive pulmonary disease) Mother Cancer Social History Social History Social History: He lives in [place] with his of 16 years. He continues to smoke and is down to a pack a cigarettes a day. He has multiple dogs and
--- NOTE | 2021-05-06 13:34 | PM.IMPN ---
Progress Note: A&P Assessment and Plan (1) Acute respiratory failure with hypoxia and hypercapnia: Code(s): J96.01 - Acute respiratory failure with hypoxia; J96.02 - Acute respiratory failure with hypercapnia Status: Acute Assessment and Plan: Acute hypercapnic respiratory failure likely related to COPD exacerbation after being exposed to room that was freshly painted. Likely reactive airway disease. -ABGs and chest x-ray reviewed -patient on BiPAP with improvement in ABGs -continue bronchodilators, -continue Solu-Medrol -continue ceftriaxone (2) Acute exacerbation of chronic obstructive pulmonary disease: Code(s): J44.1 - Chronic obstructive pulmonary disease with (acute) exacerbation Status: Acute Assessment and Plan: Continue BiPAP, pCO2 levels improved on repeat ABGs -continue steroids, BiPAP and antibiotics -patient may utilize BiPAP p.r.n. (3) Tobacco abuse: Code(s): Z72.0 - Tobacco use Status: Acute Assessment and Plan: Discussed with patient regarding cessation of tobacco use. I did discuss with him regarding the negative affects of some smoking -he stated that he is going to try and quit smoking (4) CAD (coronary artery disease): Code(s): I25.10 - Atherosclerotic heart disease of [place] coronary artery without angina pectoris Status: Chronic Assessment and Plan: Continue Coreg (5) HTN (hypertension): Code(s): I10 - Essential (primary) hypertension Status: Chronic Assessment and Plan: Continue Coreg (6) Psoriatic arthritis: Code(s): L40.50 - Arthropathic psoriasis, unspecified Status: Chronic Assessment and Plan: On methotrexate at home (7) Bipolar disorder: Code(s): F31.9 - Bipolar disorder, unspecified Status: Acute Assessment and Plan: Continue bupropion, Effexor, Abilify (8) DVT prophylaxis: Code(s): Z29.9 - Encounter for prophylactic measures, unspecified Status: Acute Assessment and Plan: Subcutaneous Lovenox Additional Plan Discussed with patient updated with his condition and plan of care. Code status: Full code This dictation may have been done utilizing a voice recognition system. Attempts have been made to correct errors. However, there may be uncorrected grammatical, spelling, and recognition errors present. Due to a high probability of clinically significant, life threatening deterioration, the patient required my highest level of preparedness to intervene emergently and I personally spent this critical care time directly and personally managing the patient. This critical care time included obtaining a history; examining the patient; pulse oximetry; ordering and review of studies; arranging urgent treatment with development of a management plan; evaluation of patient's response to treatment; frequent reassessment; and discussions with other providers. It was exclusive of separately billable procedures and treating other patients and teaching time. Please see Assessment and Plan section and the rest of the note for further information on patient assessment and treatment Subjective Date/time seen: 05/06/21 13:34 Interval history: Acute hypercapnic respiratory failure, COPD exacerbation Patient seen and examined for the hospitalist team. He is awake, alert, comfortable. States he feels much better than when he came to the hospital. Denies any shortness of breath or respiratory distress. Currently on BiPAP with improved ABGs. Urine output has been adequate, hemodynamically stable, afebrile. Denies any chest pain, abdominal pain, nausea or vomiting at this time Exam Const: General: comfortable and no acute distress HENMT: Other: BiPAP in place Eyes: Pupils: Equal, round and reactive pupils present Neck: Neck: supple Resp: Effort & Inspection: normal respiratory effort Auscultation: wheezes and diminished lung sounds Cardio: Rate:
[2021-05-06] MEDS: ENOXAPARIN 40 MG/0.4 ML SYRINGE SUB-Q (14:10)
[2021-05-06] MEDS: methylPREDNISolone SOD SUCC 40 MG VIAL IV PUSH ×3 (14:12→23:38)
[2021-05-06] MEDS: ACETAMINOPHEN 500 MG TABLET 1000 MG PO (17:19)
[2021-05-06] MEDS: oxyCODONE/ACETAMINOPHEN (*CRX) 5-325 MG TABLET 1 TABLET PO (19:38)
[2021-05-06] MEDS: oxyCODONE HCL (*CRX) 5 MG TAB IR PO (23:54)
[2021-05-07] VITALS (25 sets, daily range): BP systolic 116–161; BP diastolic 79–95; PULSE 79–124; RESP 16–24; TEMP 36.4–36.7; O2SAT 90–99
[2021-05-07] MEDS: ALBUTEROL SULFATE NEB 2.5 MG/0.5 ML INH 5 MG INHALATION (02:18)
[2021-05-07] MEDS: IPRATROPIUM BR 0.02% INH SOLN 0.5 MG/2.5 ML VIAL INHALATION ×4 (02:19→21:45)
[2021-05-07] MEDS: CYCLOBENZAPRINE HCL 10 MG TABLET PO ×2 (02:21→22:15)
[2021-05-07 04:46] LABS: Alveolar/Arterial O2 Gradient 73.3 mmHg; Base Excess ABG 7.5 mEq/l (+/-2.0); Carboxyhemoglobin 0.3 % THb (0-2.0); Device NON-INVASIVE VENT; Fractional Inspired Oxygen 30 %; HCO3 ABG 33.7 mEq/l (22.0-26.0); Methemoglobin ABG 0.4 %THb (0-1.5); Modified Allen's Test Pass; Non-Invasive Expiratory Pressure 5 CMH2O; Non-Invasive Inspiratory Pressure 12 CMH2O; Non-Invasive Vent Rate 12 /MIN; Oxygen Content ABG 17.9 %vol (16.0-22.0); Oxygen Saturation ABG 95.4 % (95.0-100.0); Oxyhemoglobin 94.6 % THb (90.0-100.0); PCO2 ABG 53.7 mmHg (35.0-45.0); PO2 ABG 77.5 mmHg (80.0-100.0); PO2 FiO2 Ratio Arterial Blood 2.58 %; Reduced Hemoglobin 4.7 %THb (0-5.0); Site Drawn RIGHT RADIAL; Total Hemoglobin 13.4 g/dL (12.0-18.0); pH ABG 7.415 (7.350-7.450)
[2021-05-07 05:11] LABS: Basophils Percent Auto 0.1 % (0.2-1.2); Hematocrit 39.7 % (42.0-52.0); Hemoglobin 12.7 g/dL (14.0-18.0); Immature Granulocyte Absolute 0.11 K/mm3 (0.00-0.031); Immature Granulocyte Percent A 0.7 % (0-0.5); Lymphocytes Absolute Auto 0.74 K/mm3 (0.9-3.2); Lymphocytes Percent Auto 4.8 % (18.3-44.2); Mean Corpuscular Hemoglobin 32.3 pg (26-34); Mean Platelet Volume 9.7 fl (7.4-10.4); Monocytes Absolute Auto 0.8 K/mm3 (0.1-0.6); Neutrophils Absolute Auto 13.9 K/mm3 (1.3-6.7); Neutrophils Percent Auto 89.4 % (45.5-73.1); Platelet Count Result 222 k/mm3 (150-375); Red Blood Count 3.93 M/mm3 (4.6-6.20); Red Cell Distribution Width 14.3 % (11.5-14.5); White Blood Count 15.5 K/mm3 (4.5-10.0)
[2021-05-07] MEDS: oxyCODONE/ACETAMINOPHEN (*CRX) 5-325 MG TABLET 1 TABLET PO ×4 (05:20→20:33)
[2021-05-07] MEDS: methylPREDNISolone SOD SUCC 40 MG VIAL IV PUSH ×2 (05:23→11:58)
[2021-05-07 05:25] LABS: Anion Gap 3 mmol/L (8-16); Blood Urea Nitrogen 20 mg/dL (9-20); Calcium 8.8 mg/dL (8.4-10.2); Carbon Dioxide 34 mmol/L (22-30); Chloride 98 mmol/L (98-107); Estimated CRCL calculation 85 ml/min; Estimated Glomerular Filt Rate > 60; Glucose 150 mg/dL (75-110); Phosphorus 3.6 mg/dL (2.5-4.5); Potassium 4.4 mmol/L (3.4-5.0); Sodium 135 mmol/L (137-145)
[2021-05-07] MEDS: buPROPion HCL SR (12 HR) 150 MG TAB PO (08:17)
[2021-05-07] MEDS: ARIPiprazole 2 MG TABLET PO (08:17)
[2021-05-07] MEDS: carvediloL 25 MG TABLET PO ×2 (08:17→20:08)
[2021-05-07] MEDS: VENLAFAXINE HCL XR 75 MG CAP.ER.24H 150 MG PO (08:17)
[2021-05-07] MEDS: ENOXAPARIN 40 MG/0.4 ML SYRINGE SUB-Q (08:18)
[2021-05-07] MEDS: ATORVASTATIN 20 MG TABLET PO (08:18)
[2021-05-07] MEDS: oxyCODONE HCL (*CRX) 5 MG TAB IR PO ×3 (08:23→20:33)
[2021-05-07] MEDS: ALBUTEROL SULFATE NEB 2.5 MG/0.5 ML INH INHALATION ×3 (08:40→21:45)
--- NOTE | 2021-05-07 10:51 | PM.IMPN ---
Progress Note: A&P Assessment and Plan (1) Acute respiratory failure with hypoxia and hypercapnia: Code(s): J96.01 - Acute respiratory failure with hypoxia; J96.02 - Acute respiratory failure with hypercapnia Status: Acute Assessment and Plan: Acute hypercapnic respiratory failure likely related to COPD exacerbation after being exposed to room that was freshly painted. Likely reactive airway disease. -ABGs and chest x-ray reviewed -patient on BiPAP with improvement in ABGs -continue bronchodilators, -continue Solu-Medrol -continue ceftriaxone (2) Acute exacerbation of chronic obstructive pulmonary disease: Code(s): J44.1 - Chronic obstructive pulmonary disease with (acute) exacerbation Status: Acute Assessment and Plan: Continue BiPAP, pCO2 levels improved on repeat ABGs -continue steroids, BiPAP and antibiotics -patient may utilize BiPAP p.r.n. -appreciate pulmonology following the patient (3) Tobacco abuse: Code(s): Z72.0 - Tobacco use Status: Acute Assessment and Plan: Discussed with patient regarding cessation of tobacco use. I did discuss with him regarding the negative affects of some smoking -he stated that he is going to try and quit smoking (4) CAD (coronary artery disease): Code(s): I25.10 - Atherosclerotic heart disease of [place] coronary artery without angina pectoris Status: Chronic Assessment and Plan: Continue Coreg (5) HTN (hypertension): Code(s): I10 - Essential (primary) hypertension Status: Chronic Assessment and Plan: Continue Coreg (6) Psoriatic arthritis: Code(s): L40.50 - Arthropathic psoriasis, unspecified Status: Chronic Assessment and Plan: On methotrexate at home (7) Bipolar disorder: Code(s): F31.9 - Bipolar disorder, unspecified Status: Acute Assessment and Plan: Continue bupropion, Effexor, Abilify (8) DVT prophylaxis: Code(s): Z29.9 - Encounter for prophylactic measures, unspecified Status: Acute Assessment and Plan: Subcutaneous Lovenox Additional Plan Discussed with patient updated with his condition and plan of care. Code status: Full code This dictation may have been done utilizing a voice recognition system. Attempts have been made to correct errors. However, there may be uncorrected grammatical, spelling, and recognition errors present. Due to a high probability of clinically significant, life threatening deterioration, the patient required my highest level of preparedness to intervene emergently and I personally spent this critical care time directly and personally managing the patient. This critical care time included obtaining a history; examining the patient; pulse oximetry; ordering and review of studies; arranging urgent treatment with development of a management plan; evaluation of patient's response to treatment; frequent reassessment; and discussions with other providers. It was exclusive of separately billable procedures and treating other patients and teaching time. Please see Assessment and Plan section and the rest of the note for further information on patient assessment and treatment Subjective Date/time seen: 05/07/21 10:51 Interval history: Acute hypercapnic respiratory failure, COPD exacerbation Patient seen and examined for the hospitalist team. He is awake, alert, comfortable. denies any shortness of breath, chest pain. Complains of pain around has abdomen back which has been chronic. Patient is on pain medications at home. he did wear his BiPAP overnight currently on 2 L nasal cannula with adequate O2 sats Urine output has been adequate, hemodynamically stable, afebrile. Review of Systems Review of Systems: All systems reviewed & are unremarkable except as noted in HPI and below Exam Const: General: comfortable and no acute distress HENMT: Mouth: Yes moist mucous membranes Eyes: Pupils:
--- NOTE | 2021-05-07 15:33 | PM.PNPUL ---
Progress Note: A&P Assessment and Plan (1) Acute exacerbation of chronic obstructive pulmonary disease: Code(s): J44.1 - Chronic obstructive pulmonary disease with (acute) exacerbation Status: Acute Assessment and Plan: 05/06 He carries a diagnosis of COPD and presents with wheezing and shortness of breath after being exposed to a room that was freshly painted. This may represent a COPD exacerbation or reactive airways disease from exposure to the pain. Patient states that he has improved with bronchodilators, steroids and ceftriaxone/levaquin At this time I will continue albuterol 2.5 mg nebs Q 6 hours, ipratropium 0.5 mg nebs q.6 hours, and Solu-Medrol 40 IV q.6. I will continue ceftriaxone andlevaquin empirically for possible pneumonia 05/07 patient states that he is improved and 80% back to normal. I would discontinue his IV Solu-Medrol and place him on prednisone 50. I will continue his albuterol and ipratropium nebulizers at q.6 hours. I will continue his ceftriaxone and Levaquin for possible pneumonia. Patient is on room air with saturations 96%. Patient was requesting to go home today and I have convinced him to stay through the night so that we can monitor him off of the BiPAP and off of IV steroids. He has agreed to this. Will follow with you (2) Acute respiratory failure with hypoxia and hypercapnia: Code(s): J96.01 - Acute respiratory failure with hypoxia; J96.02 - Acute respiratory failure with hypercapnia Status: Acute Assessment and Plan: 05/06 Patient with acute hypercarbic and hypoxemic respiratory failure on presentation. Patient is has been placed on BiPAP. Patient states that he is comfortable and his repeat blood gas on BiPAP demonstrates a pH of 7.41/50/70. At this time patient can utilize BiPAP p.r.n.. Supplemental oxygen to maintain saturations approximately 90-94%. 05/07 Patient had a blood gas with a pH of 7.42/54/78 on BiPAP 10/17. I discussed the possibility of noninvasive ventilation with him but he stated that he would never be able to tolerate a noninvasive ventilator and would refuse a home machine. I also talked to the patient about his hypoxemia and he states that he will never wear supplemental oxygen at this time. I will not check further blood gases or an overnight oximetry at this time as patient will not wear noninvasive or supplemental oxygen in the future. Will follow with you Subjective Date/time seen: 05/07/21 15:33 Interval history: Narrative: this is a new pulmonary consult for COPD exacerbation This 65-year-old man with a history of COPD on trelegy inhaler, hypertension, anxiety, depression, chronic pain, psoriatic arthritis, CHF who presented to the emergency department on 05/06 after he became acutely short of breath when he walked into a room that was freshly painted. He denied any fevers, chills, rigors, nausea, vomiting prior to this. Patient presented to the emergency room and was in respiratory distress with a blood gas of 7.33/64/54 on 2 L nasal cannula. patient was placed immediately on BiPAP. repeat blood gas demonstrated a pH of 7.41/50/70 on BiPAP 12/5 and 30%. Patient also had wheezes and was treated for COPD exacerbation with albuterol nebs, ipratropium nebs, Solu-Medrol. 05/06 When I saw the patient he was on BiPAP. Patient was comfortable and said that he had improved. He felt he was in no respiratory distress and appeared comfortable on the BiPAP. Off BiPAP later in day on 2L NC with saturations 92%. Wore BiPAP overnight. 05/07 patient tells me that he is greatly improved today and 90% back to normal. Patient states that he does not like the BiPAP and that there is no way he would be able to sleep with the BiPAP at home. Patient had a blood gas this morning on the BiPAP with a pH of 7.42/54/78. patient is currently on room air with saturations 96%. Patient has diffuse expiratory wheezes and tells me that even when he i
[2021-05-07] MEDS: predniSONE 20 MG TABLET 40 MG PO (18:42)
[2021-05-08] VITALS (14 sets, daily range): BP systolic 140–149; BP diastolic 86–98; PULSE 101–116; RESP 16–25; TEMP 36.3–36.8; O2SAT 90–94
[2021-05-08] MEDS: IPRATROPIUM BR 0.02% INH SOLN 0.5 MG/2.5 ML VIAL INHALATION ×2 (01:58→08:31)
[2021-05-08] MEDS: ALBUTEROL SULFATE NEB 2.5 MG/0.5 ML INH INHALATION ×2 (01:59→08:31)
[2021-05-08] MEDS: oxyCODONE/ACETAMINOPHEN (*CRX) 5-325 MG TABLET 1 TABLET PO ×2 (02:38→09:15)
[2021-05-08] MEDS: oxyCODONE HCL (*CRX) 5 MG TAB IR PO ×2 (02:39→09:14)
[2021-05-08 05:51] LABS: Alveolar/Arterial O2 Gradient 20.7 mmHg; Carboxyhemoglobin 0.1 % THb (0-2.0); Fractional Inspired Oxygen 21 %; HCO3 ABG 34.4 mEq/l (22.0-26.0); Methemoglobin ABG 0.4 %THb (0-1.5); Oxygen Content ABG 17.7 %vol (16.0-22.0); Oxygen Saturation ABG 87.7 % (95.0-100.0); Oxyhemoglobin 88.2 % THb (90.0-100.0); PO2 ABG 56.2 mmHg (80.0-100.0); PO2 FiO2 Ratio Arterial Blood 2.68 %; Reduced Hemoglobin 11.3 %THb (0-5.0); Total Hemoglobin 14.3 g/dL (12.0-18.0)
[2021-05-08 05:54] LABS: Device ROOM AIR; Modified Allen's Test Pass; PCO2 ABG 60.8 mmHg (35.0-45.0); Site Drawn RIGHT RADIAL
[2021-05-08] MEDS: CYCLOBENZAPRINE HCL 10 MG TABLET PO ×2 (06:13→13:00)
[2021-05-08] MEDS: predniSONE 20 MG TABLET 40 MG PO (09:12)
[2021-05-08] MEDS: ENOXAPARIN 40 MG/0.4 ML SYRINGE SUB-Q (09:12)
[2021-05-08] MEDS: buPROPion HCL SR (12 HR) 150 MG TAB PO (09:13)
[2021-05-08] MEDS: carvediloL 25 MG TABLET PO (09:13)
[2021-05-08] MEDS: VENLAFAXINE HCL XR 75 MG CAP.ER.24H 150 MG PO (09:13)
[2021-05-08] MEDS: ATORVASTATIN 20 MG TABLET PO (09:14)
[2021-05-08] MEDS: ARIPiprazole 2 MG TABLET PO (11:07)
--- NOTE | 2021-05-08 11:37 | HOMEO2EVAL ---
Evaluation was performed at [facility] Home Oxygen Evaluation RC: Home Oxygen (O2) Evaluation Start: 05/08/21 11:24 Freq: ONCE Status: Active Protocol: RPE Activity Type Activity Date Activity User E-Sign Co-Sign Detail Recorded Client Recorded Date Recorded By Document 05/08/21 11:30 DLW [email or web address] 05/08/21 11:37 DLW Document 05/08/21 11:31 DLW [email or web address] 05/08/21 11:37 DLW Document 05/08/21 11:32 DLW [email or web address] 05/08/21 11:37 DLW Document 05/08/21 11:36 DLW [email or web address] 05/08/21 11:37 DLW 05/08/21 05/08/21 05/08/21 11:30 11:31 11:32 Home O2 Evaluation Test Phase Resting Exercise Exercise Oxygen Delivery Room Air Room Air Room Air Pulse Oximetry (90-100 %) 93 90 92 Pulse Rate (60-100 beats/min) 104 H 106 H 105 H Activity Tolerance Good Good Ambulation Distance (feet) 150 Treatment Charges O2 Evaluation - Inpatient 05/08/21 11:36 Home O2 Evaluation Test Phase Exercise Oxygen Delivery Room Air Pulse Oximetry (90-100 %) 93 Pulse Rate (60-100 beats/min) 106 H Activity Tolerance Good Ambulation Distance (feet) Treatment Charges
--- NOTE | 2021-05-08 12:13 | PM.IMPN ---
Progress Note: A&P Assessment and Plan (1) Acute respiratory failure with hypoxia and hypercapnia: Code(s): J96.01 - Acute respiratory failure with hypoxia; J96.02 - Acute respiratory failure with hypercapnia Status: Acute Assessment and Plan: Acute hypercapnic respiratory failure likely related to COPD exacerbation after being exposed to room that was freshly painted. Likely reactive airway disease. -ABGs and chest x-ray reviewed - Patient on no oxygen, refuses BiPAP overnight -continue bronchodilators, -continue Solu-Medrol -continue levofloxacin (2) Acute exacerbation of chronic obstructive pulmonary disease: Code(s): J44.1 - Chronic obstructive pulmonary disease with (acute) exacerbation Status: Acute Assessment and Plan: Continue BiPAP, pCO2 levels improved on repeat ABGs -continue steroids and antibiotics -patient may utilize BiPAP p.r.n. -appreciate pulmonology following the patient (3) Tobacco abuse: Code(s): Z72.0 - Tobacco use Status: Acute Assessment and Plan: Discussed with patient regarding cessation of tobacco use. I did discuss with him regarding the negative affects of some smoking -he stated that he is going to try and quit smoking after he has had so many hospitalizations (4) CAD (coronary artery disease): Code(s): I25.10 - Atherosclerotic heart disease of [place] coronary artery without angina pectoris Status: Chronic Assessment and Plan: Continue Coreg (5) HTN (hypertension): Code(s): I10 - Essential (primary) hypertension Status: Chronic Assessment and Plan: Continue Coreg (6) Psoriatic arthritis: Code(s): L40.50 - Arthropathic psoriasis, unspecified Status: Chronic Assessment and Plan: On methotrexate at home (7) Bipolar disorder: Code(s): F31.9 - Bipolar disorder, unspecified Status: Acute Assessment and Plan: Continue bupropion, Effexor, Abilify (8) DVT prophylaxis: Code(s): Z29.9 - Encounter for prophylactic measures, unspecified Status: Acute Assessment and Plan: Subcutaneous Lovenox Additional Plan Discussed with patient updated with his condition and plan of care. Code status: Full code This dictation may have been done utilizing a voice recognition system. Attempts have been made to correct errors. However, there may be uncorrected grammatical, spelling, and recognition errors present. Due to a high probability of clinically significant, life threatening deterioration, the patient required my highest level of preparedness to intervene emergently and I personally spent this critical care time directly and personally managing the patient. This critical care time included obtaining a history; examining the patient; pulse oximetry; ordering and review of studies; arranging urgent treatment with development of a management plan; evaluation of patient's response to treatment; frequent reassessment; and discussions with other providers. It was exclusive of separately billable procedures and treating other patients and teaching time. Please see Assessment and Plan section and the rest of the note for further information on patient assessment and treatment Subjective Date/time seen: 05/08/21 12:13 Interval history: Acute hypercapnic respiratory failure, COPD exacerbation 05/08/2021: Patient his being seen and examined for the hospitalist team. Patient is awake, sitting commit check, alert, oriented. Denies any shortness of breath or chest pain. Complains of pain and his breast that wraps around to the back bilaterally. Patient has had chronic pain issues and is on pain medications at home. Urine output has been adequate, patient is afebrile, hemodynamically stable. patient refused to wear BiPAP overnight. Review of Systems Review of Systems: All systems reviewed & are unremarkable except as noted in HPI and below Exam Const:
--- NOTE | 2021-05-08 12:29 | PM.PNPUL ---
Progress Note: A&P Assessment and Plan (1) Acute exacerbation of chronic obstructive pulmonary disease: Code(s): J44.1 - Chronic obstructive pulmonary disease with (acute) exacerbation Status: Acute Assessment and Plan: 05/06 He carries a diagnosis of COPD and presents with wheezing and shortness of breath after being exposed to a room that was freshly painted. This may represent a COPD exacerbation or reactive airways disease from exposure to the pain. Patient states that he has improved with bronchodilators, steroids and ceftriaxone/levaquin At this time I will continue albuterol 2.5 mg nebs Q 6 hours, ipratropium 0.5 mg nebs q.6 hours, and Solu-Medrol 40 IV q.6. I will continue ceftriaxone andlevaquin empirically for possible pneumonia 05/07 patient states that he is improved and 80% back to normal. I would discontinue his IV Solu-Medrol and place him on prednisone 50. I will continue his albuterol and ipratropium nebulizers at q.6 hours. I will continue his ceftriaxone and Levaquin for possible pneumonia. Patient is on room air with saturations 96%. Patient was requesting to go home today and I have convinced him to stay through the night so that we can monitor him off of the BiPAP and off of IV steroids. He has agreed to this. 05/08 patient tells me that he is greatly improved today and 90% back to normal ready to go home. patient is currently on room air with saturations 93%. Patient has diffuse expiratory wheezes and tells me that he alsways wheezes. Patient had an ABG on room air off of the BiPAP for 24 hours with a pH of 7.37/61/56. He says he may consider wearing noninvasive ventilation at night and will talk to his telephone operator chief, Dr. Baron, about this. I talked to the patient again and he is on willing to wear oxygen during the day. I have not done home O2 assessment because he refuses oxygen. Again tells me that he will not smoke in the future. Improved and ready for discharge on these pulmonary medications:. Levaquin 750 mg po Q day X 4 days Prednisone 40 mg PO Q day X 4 days, then decrease to 10 Q day for his psoriatic arthritis Trelelgy 160/9/4.8 at 1 puff Q day Albuterol inhaler 2 puffs Q 4 H PRN Duo neb Q 4 H PRN Alcon has appoint with his telephone operator chief in June. I told him to call his pulmonology office on 05/10 and inform them that he was hospitalized for COPD exacerbation so that he can be seen earlier. (2) Acute respiratory failure with hypoxia and hypercapnia: Code(s): J96.01 - Acute respiratory failure with hypoxia; J96.02 - Acute respiratory failure with hypercapnia Status: Acute Assessment and Plan: 05/06 Patient with acute hypercarbic and hypoxemic respiratory failure on presentation. Patient is has been placed on BiPAP. Patient states that he is comfortable and his repeat blood gas on BiPAP demonstrates a pH of 7.41/50/70. At this time patient can utilize BiPAP p.r.n.. Supplemental oxygen to maintain saturations approximately 90-94%. 05/07 Patient had a blood gas with a pH of 7.42/54/78 on BiPAP 10/17. I discussed the possibility of noninvasive ventilation with him but he stated that he would never be able to tolerate a noninvasive ventilator and would refuse a home machine. I also talked to the patient about his hypoxemia and he states that he will never wear supplemental oxygen at this time. I will not check further blood gases or an overnight oximetry at this time as patient will not wear noninvasive or supplemental oxygen in the future. 05/08 Patient had an ABG on room air off of the BiPAP for 24 hours with a pH of 7.37/61/56. He would benefit from nocturnal non invasive ventilation if he remains hypercarbic after this exacerbation. He says he may consider wearing noninvasive ventilation at night and will talk to his telephone operator chief, Dr. Baron, about this. Subjective Date/time seen: 05/08/21 12:29 Interval history: Narrative: this is a new
--- NOTE | 2021-05-08 13:06 | PM.DS ---
DS: Admitting Diagnosis Admitting Diagnosis Admitting Diagnosis: Chief Complaint: shortness of breath DS: Discharge Diagnosis Discharge Diagnosis (1) Acute respiratory failure with hypoxia and hypercapnia: Code(s): J96.01 - Acute respiratory failure with hypoxia; J96.02 - Acute respiratory failure with hypercapnia Status: Acute Assessment and Plan: Currently requiring BiPAP Likely secondary to COPD exacerbation Supportive care (2) Acute exacerbation of chronic obstructive pulmonary disease: Code(s): J44.1 - Chronic obstructive pulmonary disease with (acute) exacerbation Status: Acute Assessment and Plan: Nebulizer treatments Systemic steroids Started levofloxacin Chest x-ray with right medina had hemidiaphragm elevation however opacity not totally excluded likely atelectasis or consolidation (3) Tobacco abuse: Code(s): Z72.0 - Tobacco use Status: Acute Assessment and Plan: Nicotine patch as needed (4) CAD (coronary artery disease): Code(s): I25.10 - Atherosclerotic heart disease of [place] coronary artery without angina pectoris Status: Chronic Assessment and Plan: Continue carvedilol Chest pain-free (5) HTN (hypertension): Code(s): I10 - Essential (primary) hypertension Status: Chronic Assessment and Plan: Continue to monitor On carvedilol (6) Psoriatic arthritis: Code(s): L40.50 - Arthropathic psoriasis, unspecified Status: Chronic Assessment and Plan: On methotrexate DS: Summary Hospital Course Reason for hospitalization: Chief Complaint: shortness of breath Narrative: This is a 65-year-old male with past medical history significant for COPD/emphysema tobacco dependence psoriatic arthritis diastolic heart failure dyslipidemia, mental illness. Patient came to the emergency room after a he became progressively short of breath according to the patient he entered the room were recent painting in has taken place and he was unable to abort an acute exacerbation by using his inhalers. Patient denies any fevers chills or rigors, no nausea no vomiting however at the time of my visit patient had been on BiPAP therapy in the emergency room and he was nauseated. He denies chest pain leg swelling claudication PND or orthopnea he has a currently an everyday smoker. Preliminary workup was significant for an ABG with pCO2 of 63 a and a PO2 of 54. Patient was immediately placed on BiPAP and received neb treatment and systemic steroids. Patient is being admitted for further evaluation and treatment. Hospital Course: patient is 65-year-old male with history of COPD was exposed freshly painted room which triggered his COPD and become short of breath patient was seen by line decorator suspect patient has an exacerbation COPD patient was treated steroid and updraft, patient also required BiPAP, patient seen by line decorator patient is back to his baseline, feeling much better not a short of breath as when he arrived, patient is clinically stable will discharge the patient home today. Status at Discharge Functional status at discharge: independent ambulation Overall status at discharge: patient is back to baseline Time Spent with Patient Time attestation: Total time spent providing and/or coordinating discharge services: Patient was seen and examined at the time of the discharge Condition at discharge is stable Code status: Full code. Time spent preparing discharge summary, discharge medications, discussing discharge planning with case resource manager and patient is 35 minutes. Time spent: Greater than 30 minutes Exam Narrative: Exam Narrative: Patient is comfortable, NAD HEENT: eyes are clear and none icteric LUNGS:CTA HEART: RR S1S2 ABD: BS+, Soft and nontender Lower extremities: no edema SKIN: nonjaundiced Neuro: grossly intact. DS: Data Data Completed and Pending Labs on day of discharge: Labs from last 24 hours 05/08/21
== END 2021-05-08 13:33 | disposition home or self-care (01) | DRG 189 ==
LOC: ANHED 02:16 → ANHICU 05-08 13:06
PROVIDERS: Internal Medicine; Admitting Provider Internal Medicine; Emergency Provider Emergency Medicine; PCP Family Medicine; Visit Provider Family Medicine
DX: J96.01 Acute respiratory failure with hypoxia (principal); I50.32 Chronic diastolic (congestive) heart failure; J43.9 Emphysema, unspecified; J96.02 Acute respiratory failure with hypercapnia; I11.0 Hypertensive heart disease with heart failure; X58.XXXA Exposure to other specified factors, initial encounter; F17.210 Nicotine dependence, cigarettes, uncomplicated; L40.50 Arthropathic psoriasis, unspecified; I25.10 Atherosclerotic heart disease of native coronary artery without angina pectoris; E78.5 Hyperlipidemia, unspecified; F31.9 Bipolar disorder, unspecified; F41.9 Anxiety disorder, unspecified; G89.29 Other chronic pain; Z79.82 Long term (current) use of aspirin; Z79.899 Other long term (current) drug therapy; Z86.14 Personal history of Methicillin resistant Staphylococcus aureus infection; Z88.3 Allergy status to other anti-infective agents; Z95.5 Presence of coronary angioplasty implant and graft
CPT/HCPCS: 36415; 36600; 71045; 80048; 82375; 82805; 83050; 83735; 83880; 84100; 84484; 85025; 87040; 93005; 94002; 94003; 94618; 94640; 96374; 99291; A9270; J0696; J1650; J1956; J2550; J2920; J2930; J7512

== ENCOUNTER 2021-11-22 14:28 | Emergency (ER) | payer BC, MEDICARE, SELFPAY ==
--- NOTE | ~2021-11-22 | XR_ITS ---
EXAMINATION: XR forearm LT 2V EXAM DATE: 11/22/2021 15:46 INDICATION: Initial encounter following injury, with pain of the left forearm. TECHNIQUE: Left forearm frontal and lateral projections obtained and reviewed. There is no prior parviz dy for comparison. FINDINGS: Scapholunate dissociation, could be chronic. There are no acute left forearm fractures or dislocations identified. There is no subcutaneous gas. The soft tissue is unremarkable. There are no radiopaque foreign bodies. IMPRESSION: 1. XR forearm LT 2V exam without acute osseous findings. 2. Scapholunate dissociation. Reviewed, dictated and finalized at location A. [employer]
--- NOTE | ~2021-11-22 | XR_ITS ---
EXAMINATION: XR hand LT min 3V INDICATION: Left hand pain after fall TECHNIQUE: Three views of the left hand are obtained. COMPARISON: None available FINDINGS: An area of heterotopic ossification at the lateral base of the fifth proximal phalanx has a somewhat chronic appearance. There is advanced osteoarthritis at the first carpometacarpal joint as well as in multiple interphalangeal joints. No definite acute fracture is identified. There is wideni ng of the scapholunate interval proximal migration of the capitate. IMPRESSION: 1. Likely chronic fracture at the lateral base of the fifth proximal phalanx without acute osseous ab normality identified. 2. Scapholunate dissociation. Reviewed, dictated and finalized at location F. [employer] IMPRESSION: 1. Likely chronic fracture at the lateral base of the fifth proximal phalanx wi thout acute osseous abnormality identified. 2. Scapholunate dissociation.
[2021-11-22 14:37] VITALS: BP 142/94; PULSE 119; RESP 20; TEMP 36.4; O2SAT 97
[2021-11-22 15:33] VITALS: BP 132/78; PULSE 78; RESP 18; O2SAT 99
--- NOTE | 2021-11-22 17:11 | ED.UPPEXIN ---
HPI - Extremity Injury (Upper) General Chief Complaint: Extremity Injury, Upper Stated Complaint: fall/wrist injury Time Seen by Provider: 11/22/21 15:35 Source: patient Mode of arrival: ambulatory Limitations: no limitations History of Present Illness HPI narrative: This is a 65 year old male that presents to the ER for left wrist pain present since a fall one week ago. Reports he slipped and fell, landing on his left wrist. Reports decreased ROM in the wrist due to pain. Denies hitting his head, loss of consciousness, other injuries or numbness. Related Data Home Medications Medication Instructions Recorded Confirmed B-complex with vitamin C 1 tablet PO DAILY 10/17/19 05/06/21 aspirin 81 mg tablet,delayed 81 mg PO DAILY 10/17/19 05/06/21 release atorvastatin 20 mg tablet 20 mg PO DAILY 10/17/19 05/06/21 cholecalciferol (vitamin D3) 25 2,000 unit PO DAILY cap 10/17/19 05/06/21 mcg (1,000 unit) capsule cyclobenzaprine 10 mg tablet 10 mg PO Q6-8H PRN 10/17/19 05/06/21 oxycodone-acetaminophen 10 mg-325 1 tablet PO Q6-8H PRN 10/17/19 05/06/21 mg tablet Trelegy Ellipta 1 inh INHALATION DAILY 08/29/20 05/06/21 methotrexate sodium 20 mg PO WEEKLY 08/29/20 05/06/21 mecobalamin (vitamin B12) 5,000 5,000 mcg PO DAILY 09/28/20 05/06/21 mcg lozenge albuterol sulfate 90 mcg INHALATION TID 01/28/21 05/06/21 aripiprazole 2 mg PO DAILY 01/28/21 05/06/21 bupropion HCl (smoking deter) 150 mg PO DAILY 01/28/21 05/06/21 folic acid 1 mg PO TID 01/28/21 05/06/21 ipratropium-albuterol 3 ml INHALATION TID PRN 01/28/21 05/06/21 venlafaxine 150 mg PO DAILY 01/28/21 05/06/21 Allergies Allergy/AdvReac Type Severity Reaction Status Date / Time vancomycin Allergy Unknown Flushing Verified 11/22/21 15:31 Review of Systems Review of Systems: CONSTITUTIONAL: Denies fever MUSCULOSKELETAL: Reports joint pain, and myalgia. NEUROLOGIC: Denies numbness All systems reviewed & are unremarkable except as noted in HPI and below PMFSH Past Medical History Medical History Anxiety and depression Bipolar 1 disorder CAD (coronary artery disease) 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 Repeat evaluation and was in 2017. Chronic back pain Constipation due to opioid therapy COPD (chronic obstructive pulmonary disease) Depression History of MRSA infection History of stomach ulcers History of suicide attempt multiple times HTN (hypertension) Hyperlipidemia Ileus MRSA infection Osteopenia determined by x-ray Psoriatic arthritis Surgical History Surgical History H/O heart artery stent 1 stent 2004 with a repeat catheterization in 2006 no intervention was done at that time H/O toe surgery hammertoe repair History of ankle surgery left heel repaired History of appendectomy 1986 History of hip replacement Hx of rhinoplasty Family History Family History Father COPD (chronic obstructive pulmonary disease) Mother Cancer Social History Social History Social History: He lives in [place] with his of 16 years. He continues to smoke and is down to a pack a cigarettes a day. He has multiple dogs and cats. He has 6 adopted children. 3 from this marriage in 3 from a previous marriage. No biological children. 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 But has not had anything to drink in last month. Primary care physician: Dr. Yogi Soriano Code status: Full code Healthcare power of personal injury attorney: Smoking packs per day: 1 Smoking cigarettes per day: 20.0 Years smoked: 50 Smoking pack-years: 50.00 Smoking status: Current every day smoker Tobac
[2021-11-22 18:03] VITALS: BP 136/82; PULSE 78; RESP 19; O2SAT 100
== END 2021-11-22 18:05 | disposition home or self-care (01) ==
PROVIDERS: Emergency Provider Emergency Medicine; PCP Family Medicine
DX: S63.512A Sprain of carpal joint of left wrist, initial encounter (principal); I25.10 Atherosclerotic heart disease of native coronary artery without angina pectoris; J44.9 Chronic obstructive pulmonary disease, unspecified; I10 Essential (primary) hypertension; E78.5 Hyperlipidemia, unspecified; F41.9 Anxiety disorder, unspecified; F32.A Depression, unspecified; Z86.14 Personal history of Methicillin resistant Staphylococcus aureus infection; Z79.82 Long term (current) use of aspirin; W01.0XXA Fall on same level from slipping, tripping and stumbling without subsequent striking against object, initial encounter; L40.50 Arthropathic psoriasis, unspecified; M85.80 Other specified disorders of bone density and structure, unspecified site; Z95.5 Presence of coronary angioplasty implant and graft; Z96.649 Presence of unspecified artificial hip joint; F17.210 Nicotine dependence, cigarettes, uncomplicated
CPT/HCPCS: 29125; 73090; 73130; 99284

== ENCOUNTER 2021-12-22 01:18 | Day surgery (SDC) | payer BC, MEDICARE, SELFPAY ==
[2021-11-23 13:52] VITALS: BMI 25.9
--- NOTE | 2021-12-01 07:45 | WPDANESEPPF ---
Anes - Initial Pre Proc Eval Procedure: Operation Date: 12/01/21 13:30 Proposed Procedures p Colonoscopy - Arnoldo Mcclain MD Date/Time: 12/01/21 07:45 Surgeon: Arnoldo Mcclain MD Pre Op Diagnosis: colitis Patient Data Age: 65 Gender: M Height: 1.7 m Weight: 75 kg Allergies Allergy/AdvReac Type Severity Reaction Status Date / Time vancomycin Allergy Unknown Flushing Verified 11/23/21 13:49 Home Medications Medication Instructions Recorded Confirmed Type B-complex with vitamin C 1 tablet PO DAILY 10/17/19 11/23/21 History aspirin 81 mg tablet,delayed 81 mg PO DAILY 10/17/19 11/23/21 History release atorvastatin 20 mg tablet 20 mg PO DAILY 10/17/19 11/23/21 History cholecalciferol (vitamin D3) 25 2,000 unit PO DAILY cap 10/17/19 11/23/21 History mcg (1,000 unit) capsule cyclobenzaprine 10 mg tablet 10 mg PO Q6-8H PRN 10/17/19 11/23/21 History oxycodone-acetaminophen 10 mg-325 1 tablet PO Q6-8H PRN 10/17/19 11/23/21 History mg tablet Trelegy Ellipta 1 inh INHALATION DAILY 08/29/20 11/23/21 History methotrexate sodium 20 mg PO WEEKLY 08/29/20 11/23/21 History carvedilol [Coreg] 25 mg PO Q12HR #60 tablet 09/03/20 11/23/21 Rx mecobalamin (vitamin B12) 5,000 5,000 mcg PO DAILY 09/28/20 11/23/21 History mcg lozenge albuterol sulfate 90 mcg INHALATION TID PRN 01/28/21 11/23/21 History aripiprazole 2 mg PO DAILY 01/28/21 11/23/21 History bupropion HCl (smoking deter) 150 mg PO DAILY 01/28/21 11/23/21 History folic acid 1 mg PO BID 01/28/21 11/23/21 History venlafaxine 150 mg PO DAILY 01/28/21 11/23/21 History prednisone 10 mg PO DAILY #54 tablet 05/08/21 11/23/21 Rx Results Review: All pre-operative results and documents have been reviewed as part of the pre-operative evaluation. [facility] Past Medical History Medical History (Updated 12/01/21 @ 07:46 by Cosmo Hernández DO) Anxiety and depression Atrial fibrillation Bipolar 1 disorder CAD (coronary artery disease) 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 Repeat evaluation and was in 2017. Chronic back pain Chronic, continuous use of opioids Constipation due to opioid therapy COPD (chronic obstructive pulmonary disease) Depression History of MRSA infection History of stomach ulcers History of suicide attempt multiple times HTN (hypertension) Hyperlipidemia Ileus MRSA infection Osteopenia determined by x-ray Psoriatic arthritis Surgical History Surgical History H/O heart artery stent 1 stent 2004 with a repeat catheterization in 2006 no intervention was done at that time H/O toe surgery hammertoe repair History of ankle surgery left heel repaired History of appendectomy 1986 History of hip replacement Hx of rhinoplasty Family History Family History Father COPD (chronic obstructive pulmonary disease) Mother Cancer Social History Social History Social History: He lives in [place] with his of 16 years. He continues to smoke and is down to a pack a cigarettes a day. He has multiple dogs and cats. He has 6 adopted children. 3 from this marriage in 3 from a previous marriage. No biological children. 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 But has not had anything to drink in last month. Primary care physician: Dr. Yogi Soriano Code status: Full code Healthcare power of consumer attorney: Smoking packs per day: 1 Smoking cigarettes per day: 20.0 Years smoked: 45 Smoking pack-years: 45.00 Smoking status: Current every day smoker Tobacco type: cigarettes Second hand tobacco smoke exposure: Yes Additional smoking assessment comments: trying to quit
[2021-12-22 06:49] VITALS: BP 115/78; PULSE 88; RESP 17; TEMP 36.1; O2SAT 91; BMI 25.6
[2021-12-22] MEDS: LACTATED RINGERS 1,000 ML 150 ML IV CONT (07:00)
--- NOTE | 2021-12-22 07:51 | PM.HPGS ---
History of Present Illness History of Present Illness Consent: Risks, benefits, and alternatives have been discussed and questions answered. Patient agrees to proceed with procedure. Chief complaint: colitis Narrative: Israel Plascencia Sr. is a 66 year old male with large TA polyps removed 1 year ago, also had healing colitis in right colon. Now he is asymptomatic, has chronic constipation from opiod use. Review of Systems Constitutional: Constitutional: Denies headache(s) and Denies weakness Eyes: Eyes: Denies blurry vision ENT: Reports Normal hearing present, Denies headache(s) and Denies neck pain Cardiovascular: Cardiovascular: Denies chest pain and Denies dyspnea Respiratory: Respiratory: Denies dyspnea Gastrointestinal: Gastrointestinal: Reports no additional gastrointestinal complaints Genitourinary: Genitourinary: Denies dysuria Musculoskeletal: Musculoskeletal: Denies neck pain Integumentary/Breasts: Skin/Breast: Denies dry skin Neurologic: Reports Normal hearing present, Denies headache(s) and Denies weakness Psychiatric: Psychiatric: Denies anxiety Endocrine: Endocrine: Denies change in body appearance Hematologic/Lymphatic: Hematologic/Lymphatic: Denies easy bleeding Allergic/Immunologic: Allergic/Immunologic: Denies urticaria PMFSH Past Medical History Medical History (Updated 12/22/21 @ 07:52 by Arnoldo Mcclain MD) Adenomatous colon polyp Anxiety and depression Atrial fibrillation Bipolar 1 disorder CAD (coronary artery disease) 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 Repeat evaluation and was in 2017. Chronic back pain Chronic, continuous use of opioids Constipation due to opioid therapy COPD (chronic obstructive pulmonary disease) Depression History of MRSA infection History of stomach ulcers History of suicide attempt multiple times HTN (hypertension) Hyperlipidemia Ileus MRSA infection Osteopenia determined by x-ray Psoriatic arthritis Surgical History Surgical History H/O heart artery stent 1 stent 2004 with a repeat catheterization in 2006 no intervention was done at that time H/O toe surgery hammertoe repair History of ankle surgery left heel repaired History of appendectomy 1986 History of hip replacement Hx of rhinoplasty Family History Family History Father COPD (chronic obstructive pulmonary disease) Mother Cancer Social History Social History Social History: He lives in [place] with his of 16 years. He continues to smoke and is down to a pack a cigarettes a day. He has multiple dogs and cats. He has 6 adopted children. 3 from this marriage in 3 from a previous marriage. No biological children. 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 But has not had anything to drink in last month. Primary care physician: Dr. Yogi Soriano Code status: Full code Healthcare power of pathologist assistant: Smoking packs per day: 1 Smoking cigarettes per day: 20.0 Years smoked: 45 Smoking pack-years: 45.00 Smoking status: Current every day smoker Tobacco type: cigarettes Second hand tobacco smoke exposure: Yes Additional smoking assessment comments: trying to quit Alcohol intake: current Drinks per week: 2 Substance use: never Substance use type: does not use Other substance usage details: Prescription opiates Living arrangements: with family Gender identity (if verbalized by the patient): Male Spiritual care concerns: No Meds Home Medications and Allergies Home Medications Medication Instructions Recorded Confirmed Type B-complex with vitamin C 1 tablet PO DAILY 10/17/19 12/22/21
--- NOTE | 2021-12-22 07:59 | WPDANESEPPF ---
Anes - Initial Pre Proc Eval Procedure: Operation Date: 12/22/21 08:00 Proposed Procedures p Colonoscopy - Arnoldo Mcclain MD Date/Time: 12/22/21 07:59 Surgeon: Arnoldo Mcclain MD Pre Op Diagnosis: colitis Patient Data Age: 66 Gender: M Height: 1.7 m Weight: 74.2 kg Last Vital Signs Temp 97 F L 12/22/21 06:49 Pulse 88 12/22/21 06:49 Resp 17 12/22/21 06:49 BP 115/78 12/22/21 06:49 Pulse Ox 91 12/22/21 06:49 Allergies Allergy/AdvReac Type Severity Reaction Status Date / Time vancomycin Allergy Unknown Flushing Verified 12/22/21 06:46 Home Medications Medication Instructions Recorded Confirmed Type B-complex with vitamin C 1 tablet PO DAILY 10/17/19 12/22/21 History aspirin 81 mg tablet,delayed 81 mg PO DAILY 10/17/19 12/22/21 History release atorvastatin 20 mg tablet 20 mg PO DAILY 10/17/19 12/22/21 History cholecalciferol (vitamin D3) 25 2,000 unit PO DAILY cap 10/17/19 12/22/21 History mcg (1,000 unit) capsule cyclobenzaprine 10 mg tablet 10 mg PO Q6-8H PRN 10/17/19 12/22/21 History oxycodone-acetaminophen 10 mg-325 1 tablet PO Q6-8H PRN 10/17/19 12/22/21 History mg tablet Trelegy Ellipta 1 inh INHALATION DAILY 08/29/20 12/22/21 History methotrexate sodium 20 mg PO WEEKLY 08/29/20 12/22/21 History carvedilol [Coreg] 25 mg PO Q12HR #60 tablet 09/03/20 12/22/21 Rx mecobalamin (vitamin B12) 5,000 5,000 mcg PO DAILY 09/28/20 12/22/21 History mcg lozenge albuterol sulfate 90 mcg INHALATION TID PRN 01/28/21 12/22/21 History aripiprazole 2 mg PO DAILY 01/28/21 12/22/21 History bupropion HCl (smoking deter) 150 mg PO DAILY 01/28/21 12/22/21 History folic acid 1 mg PO BID 01/28/21 12/22/21 History venlafaxine 150 mg PO DAILY 01/28/21 12/22/21 History prednisone 10 mg PO DAILY #54 tablet 05/08/21 12/22/21 Rx Patient hx anesthesia problems: none Family hx anesthesia problems: none Results Review: All pre-operative results and documents have been reviewed as part of the pre-operative evaluation. [facility] Past Medical History Medical History (Updated 12/22/21 @ 07:52 by Arnoldo Mcclain MD) Adenomatous colon polyp Anxiety and depression Atrial fibrillation Bipolar 1 disorder CAD (coronary artery disease) 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 Repeat evaluation and was in 2017. Chronic back pain Chronic, continuous use of opioids Constipation due to opioid therapy COPD (chronic obstructive pulmonary disease) Depression History of MRSA infection History of stomach ulcers History of suicide attempt multiple times HTN (hypertension) Hyperlipidemia Ileus MRSA infection Osteopenia determined by x-ray Psoriatic arthritis Surgical History Surgical History H/O heart artery stent 1 stent 2004 with a repeat catheterization in 2006 no intervention was done at that time H/O toe surgery hammertoe repair History of ankle surgery left heel repaired History of appendectomy 1986 History of hip replacement Hx of rhinoplasty Family History Family History Father COPD (chronic obstructive pulmonary disease) Mother Cancer Social History Social History Social History: He lives in [place] with his of 16 years. He continues to smoke and is down to a pack a cigarettes a day. He has multiple dogs and cats. He has 6 adopted children. 3 from this marriage in 3 from a previous marriage. No biological children. 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 But has not had anything to drink in last month. Primary care physician: Dr. Yogi Soriano Code status: Full code Healthcare power of estate attorney: Smoking pa
[2021-12-22 08:20] VITALS: BP 120/83; PULSE 84; RESP 27; O2SAT 94
[2021-12-22 08:30] VITALS: BP 120/68; PULSE 83; RESP 21; O2SAT 92
[2021-12-22 08:40] VITALS: BP 137/84; PULSE 83; RESP 17; O2SAT 93
== END 2021-12-22 08:53 | disposition home or self-care (01) ==
PROVIDERS: PCP Family Medicine; Visit Provider Internal Medicine Gastroenterology
PROC: 0DJD8ZZ Inspection of Lower Intestinal Tract, Via Natural or Artificial Opening Endoscopic (ICD-10-PCS; CPT 45378; principal; 2021-12-22 08:00)
DX: Z12.11 Encounter for screening for malignant neoplasm of colon (principal); D12.0 Benign neoplasm of cecum; D12.2 Benign neoplasm of ascending colon; K64.8 Other hemorrhoids; I10 Essential (primary) hypertension; J44.9 Chronic obstructive pulmonary disease, unspecified; E78.5 Hyperlipidemia, unspecified; I48.91 Unspecified atrial fibrillation; I25.10 Atherosclerotic heart disease of native coronary artery without angina pectoris; I25.3 Aneurysm of heart; L40.50 Arthropathic psoriasis, unspecified; F31.9 Bipolar disorder, unspecified; F41.9 Anxiety disorder, unspecified; Z86.14 Personal history of Methicillin resistant Staphylococcus aureus infection; Z79.82 Long term (current) use of aspirin; Z79.51 Long term (current) use of inhaled steroids; Z79.891 Long term (current) use of opiate analgesic; Z95.5 Presence of coronary angioplasty implant and graft; F17.210 Nicotine dependence, cigarettes, uncomplicated
CPT/HCPCS: 45385; 45380; 88305; J2704; J7120

== ENCOUNTER → 2022-02-24 10:54 | Outpatient (CLI) | payer BC, MEDICARE, SELFPAY ==
--- NOTE | ~2022-02-24 | XR_ITS ---
EXAMINATION: XR lumbar spine 2-3V EXAM DATE: 02/24/2022 12:15 INDICATION: Radiculopathy . TECHNIQUE: Lumber spine frontal, lateral, lateral L5-S1 projections for interpretation. Comparison is made to prior examination from 09/16/2020. FINDINGS: T11-12 has severe loss of the disc space and also likely partial fusion. Chronic moderate anterior wedging of the T11 vertebral body. Appearance to this is not significantly changed. Moderate to severe L1-2, L4-5 and L5-S1 disc disease. There is moderate lumbar facet arthropathy. There are n o acute fractures identified. Left hip replacement. Sacrum, sacroiliac joints, sacral arcuate lines a re intact. There is no significant interval change. IMPRESSION: 1. Moderate to severe lumbar spondylosis unchanged. 2. Anterior wedging and fusion of T11-T12 likely sequela from patient's prior discitis. Reviewed, dictated and finalized at location B.
--- NOTE | ~2022-02-24 | XR_ITS ---
EXAMINATION: XR thoracic spine 3V EXAM DATE: 02/24/2022 12:15 INDICATION: Radiculopathy TECHNIQUE: Frontal and lateral projections of the thoracic spine as well as lateral swimmers projecti on of the upper thoracic spine for interpretation. Comparison is made to prior examination from 021. FINDINGS: T11-T12 are fused with moderate anterior wedging of the T11 vertebral body, sequela from p atient's prior discitis. Mild to moderate mid and lower thoracic disc disease. Mild to moderate compr ession fracture of T9, more pronounced than on prior study therefore can't exclude acute component. N o acute fracture line is specifically identified. Mild upper lumbar levoscoliosis. Chronic elevation of right hemidiaphragm. IMPRESSION: 1. Mild to moderate T9 compression fracture, mild progression compared to prior study. Can't exclude acute component. 2. Chronic T11-12 fusion, T11 anterior wedging, sequela from prior discitis. 3. Mild to moderate mid and lower thoracic spondylosis. 4. Chronic right hemidiaphragm elevation. Reviewed, dictated and finalized at location B. IMPRESSION: 1. Mild to moderate T9 compression fracture, mild progression compared to prio r study. Can't exclude acute component. 2. Chronic T11-12 fusion, T11 anterior wedging, sequela from prior discitis. 3. Mild to moderate mid and lower thoracic spondylosis. 4. Chronic right hemidiaphragm elevation.
--- NOTE | ~2022-02-24 | XR_ITS ---
EXAMINATION: XR_CERV2-3V_CR EXAM DATE: 02/24/2022 12:15 INDICATION: No known recent injury provided at this time. Pain of the cervical spine. TECHNIQUE: Cervical spine frontal, lateral, lateral swimmers, and open-mouth odontoid projections. C omparison is made to prior examination from 12/16/2013. FINDINGS: Moderate to severe loss of the disc height from C3 through C7 and likely uncovertebral rand nt arthropathy causing neural foraminal narrowing. There is 2 mm retrolisthesis C3 on C4. There is ov erall moderate cervical facet arthropathy. There are no acute fractures identified. The odontoid pro cess is intact. The lateral masses of C1 line up with C2. Prevertebral soft tissue and pre-dens spac e are within normal limits. Compared to 2013, mild progression in spondylosis. IMPRESSION: 1. Moderate to severe cervical spondylosis. 2. No acute findings. Reviewed, dictated and finalized at location B.
== END ==
PROVIDERS: PCP Family Medicine; Visit Provider Pain Medicine Interventional Pain Medicine
DX: M47.22 Other spondylosis with radiculopathy, cervical region (principal); M47.24 Other spondylosis with radiculopathy, thoracic region; M47.26 Other spondylosis with radiculopathy, lumbar region; Z98.1 Arthrodesis status; S22.070A Wedge compression fracture of T9-T10 vertebra, initial encounter for closed fracture; X58.XXXA Exposure to other specified factors, initial encounter
CPT/HCPCS: 72040; 72072; 72100

== ENCOUNTER 2022-03-21 15:30 | Outpatient (RCR) | payer BC, MEDICARE, SELFPAY ==
[2022-02-18 13:58] VITALS: PULSE 96; O2SAT 91
--- NOTE | 2022-02-18 15:10 | PTOPEVAL ---
Thank you for referring Israel Plascencia Sr. to [facility].? The patient is scheduled to be seen for therapy 1-2 x/week for 5 weeks. Please review, sign, date and return this plan of care JUAREZ. I agree with and certify that the following plan of care is medically necessary. Referring Physician Date Attending Provider: Yogi Soriano MD Diagnosis weakness Additional Evaluation Detail He is s/p left THR 2018 due to a fall with hospital stay 1 1 /2 wk. Received OP therapy Hospital stay for back fracture- thoracic level- 2019 with 1 month at [facility] for 3 wk. DC home with TLSO for 6 months. COVID: early January with hospital stay x 10 day. Intubated x 10 days He using O2 as needed on 2L. Subjective Information He c/o general weakness. He Query Text:As Reported By Patient/ lives with family. He does Family have difficulty with buttons due to arthritis. 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 2 PAUL without rails. He has a cane he uses intermittently. He rides a bike at home for 3 min for daily. He is not driving. 3 falls in the past 3 months. His falls have occurred with walking and reaching task Pain Assessment Generalized Reported Pain Level 8 Pain Frequency Chronic Lowest Pain Intensity 6 Greatest Pain Intensity 8 Lower Extremity Muscle Strength Testing Hip Strength Right Hip Flexion Strength 4+ Good + Hip Extension Strength 4- Good - Hip Abduction Strength 2 Poor Hip Adduction Strength 2+ Poor + Hip Strength Comments full bridge, but unable to perform hip ext in prone position Left Hip Flexion Strength 4- Good - Hip Extension Strength 2 Poor Hip Abduction Strength 2 Poor Hip Adduction Strength 2+ Poor + Hip Strength Comments full bridge, but unable to perform hip ext in prone position Knee Strength Bilateral Knee Flexion Strength 4+ Good + Knee Extension Strength 5 Normal Knee Strength Comments hamstring tested supi
--- NOTE | 2022-03-18 09:21 | PCPTNOTE ---
Patient called & cancelled scheduled appointment this date due to no reason given.
--- NOTE | 2022-03-21 16:22 | PCPTNOTE ---
Admitting Provider: Attending Provider: Yogi Soriano MD Patient:Israel Plascencia . Date of :1955 Physical Therapy Discharge Summary Pt referred to therapy due to general weakness and deconditioning. He is using O2 at home intermittently for SOB. He has a complex medical history including COVID, back fracture, THR and MRSA with multiple stays in the hospital since 2019. He has attended 4 therapy visits from 02/18/22 to 03/21/22 due to his transportation availability. As a result of skilled therapy services he demonstrates improved fall risk with improve Staton balance score. Demonstrates improved teja LE and shoulder strength. His O2 sats remain in the low 90's with standing exercises or walking task. TUsec 5 rep sit<>Stand: 17 sec, improved to 15 sec 2 min walk test: 382 ft, improved to 389 ft with O2 sats 93% Staton balance test: 41/56, improved to 49/56 O2 sats: 91-94% with treatment task on RA. Israel has partially achieved his therapy goals at this time. He has been provided a home program and provided education for proper technique and progression at home. He verbalized understanding. He does not wish to cont with therapy due to transportation limitations. Will DC skilled PT with recommendations for him to continue with HEP and cardio conditioning activities. Thank you for referring this patient to [facility]. Please review, sign, date and return this discharge summary JUAREZ. I have been updated about the patient's current status and I agree with discharge from the above service at this time. Referring Physician Date
== END 2022-03-22 10:41 | disposition home or self-care (01) ==
LOC: ANHPT 15:30
PROVIDERS: PCP Family Medicine; Visit Provider Family Medicine
DX: M15.9 Polyosteoarthritis, unspecified (principal); R53.1 Weakness; R26.89 Other abnormalities of gait and mobility
CPT/HCPCS: 97110; 97112; 97162; 97530

== ENCOUNTER 2022-05-09 09:42 | Inpatient (IN) | payer BC, MEDICARE, SELFPAY ==
[2022-05-09] VITALS (21 sets, daily range): BP systolic 109–133; BP diastolic 56–89; PULSE 89–122; RESP 17–25; TEMP 36.4–37; O2SAT 86–100; BMI 24.7
--- NOTE | ~2022-05-09 | XR_ITS ---
EXAMINATION: XR chest 1V portable INDICATION: Hypoxia TECHNIQUE: Portable AP chest at 1020 hours COMPARISON: 05/08/2021 FINDINGS: The lung volumes are low. There is mild atelectasis of the lung bases. No pleural effusion or pneumothorax. The cardiomediastinal silhouette is normal. IMPRESSION: 1. Mild atelectasis of the lung bases. Reviewed, dictated and finalized at location A.
--- NOTE | ~2022-05-09 | MR_ITS ---
EXAMINATION: MR brain/brain stem wo con DATE: 05/13/2022 10:38 INDICATION: Muscle spasms TECHNIQUE: Magnetic resonance imaging (MRI) of the brain and brainstem was performed without intraven ous contrast. Sequences included sagittal and axial T1-weighted SE, axial diffusion-weighted FS SE, a xial T2*-weighted GRE, axial T2*-weighted GRE, axial T2-weighted FLAIR, and axial T2-weighted FSE. Ap parent diffusion coefficient (ADC) maps were created. COMPARISON: Head CT dated 12/07/2012 FINDINGS: There are no areas of restricted diffusion to suggest acute infarction. No intracranial hemorrhage or abnormal intracranial mass lesion. There are no intraparenchymal signal abnormalities seen on the ot her pulse sequences. The ventricles are symmetric and normal in size. There are no abnormal extra-axi al fluid collections. Flow voids are seen in the cerebral arteries on the T2-weighted sequences consi stent with their expected patency. Small focus of susceptibility artifact related to a couple tiny hy perdensities seen on prior CT, potentially metallic foreign bodies in the subcutaneous tissues along the right supraorbital rim. Visualized orbits and soft tissues are otherwise unremarkable. IMPRESSION: 1. Normal brain. Reviewed, dictated and finalized at location A. IMPRESSION: 1. Normal brain.
[2022-05-09] MEDS: methylPREDNISolone SOD SUCC 125 MG VIAL IV PUSH (10:05)
[2022-05-09] MEDS: diphenhydrAMINE HCl INJ 50 MG/ML VIAL 25 MG IV PUSH (10:09)
[2022-05-09 10:11] LABS: Basophils Percent Auto 0.3 % (0.2-1.2); Eosinophils Absolute Auto 0.1 K/mm3 (0-0.3); Hematocrit 40.6 % (42.0-52.0); Immature Granulocyte Absolute 0.05 K/mm3 (0.00-0.031); Immature Granulocyte Percent A 0.5 % (0-0.5); Lymphocytes Absolute Auto 0.85 K/mm3 (0.9-3.2); Lymphocytes Percent Auto 8.8 % (18.3-44.2); Mean Corpuscular HGB Conc 29.6 g/dl (32-36); Mean Corpuscular Hemoglobin 28.5 pg (26-34); Mean Corpuscular Volume 96.4 fl (80-100); Monocytes Absolute Auto 0.7 K/mm3 (0.1-0.6); Monocytes Percent Auto 7.2 % (2.6-8.5); Neutrophils Percent Auto 82.2 % (45.5-73.1); Platelet Count Result 285 k/mm3 (150-375); Red Blood Count 4.21 M/mm3 (4.6-6.20); Red Cell Distribution Width 14.9 % (11.5-14.5); White Blood Count 9.7 K/mm3 (4.5-10.0)
[2022-05-09] MEDS: FAMOTIDINE 20 MG/2 ML VIAL IV PUSH ×2 (10:13→21:24)
[2022-05-09] MEDS: EPINEPHrine HCL INJ 1 MG/ML AMPUL 0.3 MG IM (10:20)
[2022-05-09 10:25] LABS: Alanine Aminotransferase 22 U/L (6-50); Albumin Level 3.6 g/dL (3.5-5.1); Alkaline Phosphatase 125 U/L (38-126); Aspartate Amino Transferase 49 U/L (17-59); Bilirubin,Total 0.3 mg/dL (0.2-1.3); Blood Urea Nitrogen 5 mg/dL (9-20); Calcium 8.8 mg/dL (8.4-10.2); Carbon Dioxide > 40 mmol/L (22-30); Chloride 95 mmol/L (98-107); Estimated CRCL calculation 74 ml/min; Estimated Glomerular Filt Rate > 60; Glucose 128 mg/dL (65-110); Potassium 4.7 mmol/L (3.4-5.0); Prothrombin Time 12.9 Seconds (11.1-14.7); Sodium 135 mmol/L (137-145)
[2022-05-09 10:26] LABS: Partial Thromboplastin Time 26.9 SECONDS (22.3-36.8)
[2022-05-09 11:09] LABS: Alveolar/Arterial O2 Gradient 40.8 mmHg; Base Excess ABG 5.4 mEq/l (+/-2.0); Carboxyhemoglobin 5.5 % THb (0-2.0); Fractional Inspired Oxygen 28 %; HCO3 ABG 33.1 mEq/l (22.0-26.0); Methemoglobin ABG 0.3 %THb (0-1.5); Oxygen Content ABG 15.4 %vol (16.0-22.0); Oxygen Saturation ABG 95.2 % (95.0-100.0); Oxyhemoglobin 89.4 % THb (90.0-100.0); PO2 ABG 83.1 mmHg (80.0-100.0); PO2 FiO2 Ratio Arterial Blood 2.97 %; Reduced Hemoglobin 4.8 %THb (0-5.0); Total Hemoglobin 12.2 g/dL (12.0-18.0)
[2022-05-09 11:11] LABS: Device NASAL CANNULA; Modified Allen's Test Pass; PCO2 ABG 64.2 mmHg (35.0-45.0); Site Drawn RIGHT RADIAL
--- NOTE | 2022-05-09 11:24 | ED.GENADULT ---
HPI - General Adult General Chief complaint: Shortness of Breath/Dyspnea Stated complaint: allergic reaction - facial swelling, difficulty br Time Seen by Provider: 05/09/22 09:49 History of Present Illness HPI narrative: Patient is a 66-year-old male who presents ER with multiple issues. First concern is an allergic reaction. Reports he woke up this morning had swelling of his lip and both of his eyes and that his voice is changed. Reports he had something similar over a week ago and was seen at [facility] and treated for an allergic reaction. He does not discontinue any medications as it was an unknown cause. It should be noted however that the patient does take lisinopril. The grandson who is present reports his grandfather has been having swelling of his face worsening throughout the week. Patient also has COPD and uses an inhaled steroid. He does have thrush for which she is not taking any antifungals. Related Data Home Medications Medication Instructions Recorded Confirmed B-complex with vitamin C 1 tablet PO DAILY 10/17/19 12/22/21 aspirin 81 mg tablet,delayed 81 mg PO DAILY 10/17/19 12/22/21 release (Adult Aspirin Regimen) atorvastatin 20 mg tablet 20 mg PO DAILY 10/17/19 12/22/21 cholecalciferol (vitamin D3) 25 2,000 unit PO DAILY 10/17/19 12/22/21 mcg (1,000 unit) capsule cyclobenzaprine 10 mg tablet 10 mg PO Q6-8H PRN Muscle Spasm 10/17/19 12/22/21 oxycodone-acetaminophen 10 mg-325 1 tablet PO Q6-8H PRN Pain (Scale 10/17/19 12/22/21 mg tablet (Percocet) Score 4-6) fluticasone fur. 100 mcg-umeclid 1 inh inhalation DAILY 08/29/20 12/22/21 62.5 mcg-vilant 25 mcg inhalat.powder (Trelegy Ellipta) methotrexate sodium 2.5 mg tablet 20 mg PO WEEKLY 08/29/20 12/22/21 mecobalamin (vitamin B12) 5,000 5,000 mcg PO DAILY 09/28/20 12/22/21 mcg lozenge albuterol sulfate 90 mcg/actuation 90 mcg inhalation TID PRN 01/28/21 12/22/21 aerosol inhaler Shortness Of Breath aripiprazole 2 mg tablet 2 mg PO DAILY 01/28/21 12/22/21 bupropion HCl (smoking deter) 150 150 mg PO DAILY quit smoking 01/28/21 12/22/21 mg tablet,12 hr sustained-release(smoking deterrent) folic acid 1 mg tablet 1 mg PO BID 01/28/21 12/22/21 venlafaxine 150 mg 150 mg PO DAILY 01/28/21 12/22/21 capsule,extended release 24 hr Allergies Allergy/AdvReac Type Severity Reaction Status Date / Time vancomycin Allergy Unknown Flushing Verified 05/09/22 10:01 Review of Systems Review of Systems: All systems reviewed & are unremarkable except as noted in HPI and below Constitutional: Constitutional: Denies chills, Denies fatigue and Denies fever(s) Eyes: Comments: Swelling around the eyes ENT: Denies nasal congestion and Reports sore throat Comments: Oral thrush, swelling of the lip Cardiovascular: Cardiovascular: Denies chest pain and Denies rapid heart rate Respiratory: Respiratory: Denies cough, Reports dyspnea and Reports wheezing Gastrointestinal: Gastrointestinal: Denies abdominal pain, Denies nausea and Denies vomiting Integumentary/Breasts: Skin/Breast: Denies pruritus, Denies erythema and Denies rash Neurologic: Denies syncope and Denies headache(s) PMFSH Past Medical History Medical History (Updated 05/09/22 @ 19:06 by Jm Turner MD) Adenomatous colon polyp Anxiety and depression Atrial fibrillation Bipolar 1 disorder CAD (coronary artery disease) 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 Repeat evaluation and was in 2017. Chronic back pain Chronic, continuous use of opioids Constipation due to opioid therapy COPD (chronic obstructive pulmonary disease) Depression History of MRSA infection History of stomach ulcers History of suicide attempt multiple times HTN (hypertension) Hyperlipidemia Ileus MRSA infection Osteopenia determined by x-ray Psoriatic arthritis Surgical History Surgical History H/O heart art
[2022-05-09] MEDS: ALBUTEROL SULFATE NEB 2.5 MG/3 ML INH 5 MG INHALATION ×2 (11:38→21:57)
[2022-05-09] MEDS: IPRATROPIUM BR 0.02% INH SOLN 0.5 MG/2.5 ML VIAL INHALATION ×2 (11:39→21:58)
[2022-05-09] MEDS: ALBUTEROL SULFATE NEB 2.5 MG/3 ML INH 10 MG INHALATION (13:15)
[2022-05-09] MEDS: IPRATROPIUM BR 0.02% INH SOLN 0.5 MG/2.5 ML VIAL 1 MG INHALATION (13:16)
[2022-05-09 14:47] LABS: Alveolar/Arterial O2 Gradient 72.3 mmHg; Base Excess ABG 5.8 mEq/l (+/-2.0); Carboxyhemoglobin 4.5 % THb (0-2.0); HCO3 ABG 33.5 mEq/l (22.0-26.0); Methemoglobin ABG 0.3 %THb (0-1.5); PO2 ABG 52.5 mmHg (80.0-100.0); PO2 FiO2 Ratio Arterial Blood 1.88 %; Reduced Hemoglobin 13.6 %THb (0-5.0); Total Hemoglobin 13.1 g/dL (12.0-18.0); pH ABG 7.341 (7.350-7.450)
[2022-05-09 14:48] LABS: PCO2 ABG 63.4 mmHg (35.0-45.0)
[2022-05-09 14:49] LABS: Device ROOM AIR; Fractional Inspired Oxygen 21 %; Modified Allen's Test Pass; Oxygen Saturation ABG 84.1 % (95.0-100.0); Oxyhemoglobin 81.6 % THb (90.0-100.0); Site Drawn RIGHT RADIAL
[2022-05-09] MEDS: methylPREDNISolone SOD SUCC 125 MG VIAL 60 MG IV PUSH ×2 (18:22→23:53)
[2022-05-09] MEDS: NYSTATIN 100,000 UNITS/ML SUSP 5 ML ORAL.SUSP PO ×2 (18:23→21:23)
--- NOTE | 2022-05-09 19:44 | PM.IMHP ---
H&P: HPI History of Present Illness Date/Time: Patient was placed observation status for expected length of stay less than 23 hours for management, will plan to re-evaluate tomorrow for improvement. 05/09/22 19:44 Chief Complaint: Shortness of breath Narrative: Mr. Plascencia is a 66-year-old gentleman who presented to the emergency room with multiple complaints. Patient states that he woke up this morning with swelling to his lips and eyes and felt like his voice had changed. Patient had told the emergency room had a similar episode a week ago and was seen at [facility]. At that point time patient was treated for an allergic reaction. Per ER records patient was not told to stop any medication at that point in time. At this point time patient is wearing BiPAP and is difficult to get any type of history from him. Per emergency room patient has been taking lisinopril for some time and that his grandson had noted swelling that have been increasing his face throughout the week. Patient also has a known history of COPD and while in the emergency room was mildly confused urinating on the floor twice. Patient was noted to be hypercarbic at that time was placed on BiPAP. The emergency room physician did notice that patient have thrush throughout his mouth and had not been taking any anti fungals. Patient states that he does take steroid inhalers and has been rinsing his mouth out after use. Patient has a known history of COPD, bipolar disorder with multiple suicide attempts, hypertension, dyslipidemia and paroxysmal atrial fibrillation. Review of Systems Review of Systems: It is difficult to obtain a full review of systems secondary to patient's mild confusion and he is wearing BiPAP at this time. [facility] Past Medical History Medical History (Updated 05/09/22 @ 19:06 by Jm Turner MD) Adenomatous colon polyp Anxiety and depression Atrial fibrillation Bipolar 1 disorder CAD (coronary artery disease) 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 Repeat evaluation and was in 2017. Chronic back pain Chronic, continuous use of opioids Constipation due to opioid therapy COPD (chronic obstructive pulmonary disease) Depression History of MRSA infection History of stomach ulcers History of suicide attempt multiple times HTN (hypertension) Hyperlipidemia Ileus MRSA infection Osteopenia determined by x-ray Psoriatic arthritis Surgical History Surgical History H/O heart artery stent 1 stent 2004 with a repeat catheterization in 2006 no intervention was done at that time H/O toe surgery hammertoe repair History of ankle surgery left heel repaired History of appendectomy 1986 History of hip replacement Hx of rhinoplasty Family History Family History Father COPD (chronic obstructive pulmonary disease) Mother Cancer Social History Social History Social History: He lives in [place] with his of 16 years. He continues to smoke and is down to a pack a cigarettes a day. He has multiple dogs and cats. He has 6 adopted children. 3 from this marriage in 3 from a previous marriage. No biological children. 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 But has not had anything to drink in last month. Primary care physician: Dr. Yogi Soriano Code status: Full code Healthcare power of tax associate attorney: Smoking packs per day: 1 Smoking cigarettes per day: 20.0 Years smoked: 45 Smoking pack-years: 45.00 Smoking status: Current every day smoker Tobacco type: cigarettes Second hand tobacco smoke exposure: Yes Additional smoking assessment comments: trying to quit Alcohol intake:
[2022-05-09 22:26] LABS: Fractional Inspired Oxygen 40 %; HCO3 ABG 35.2 mEq/l (22.0-26.0); Oxygen Content ABG 15.9 %vol (16.0-22.0); Oxygen Saturation ABG 94.9 % (95.0-100.0); Oxyhemoglobin 92.6 % THb (90.0-100.0); PO2 ABG 77.9 mmHg (80.0-100.0); PO2 FiO2 Ratio Arterial Blood 1.95 %; Total Hemoglobin 12.2 g/dL (12.0-18.0); pH ABG 7.372 (7.350-7.450)
[2022-05-09 22:34] LABS: Device NON-INVASIVE VENT; Modified Allen's Test Pass; Site Drawn RIGHT RADIAL
[2022-05-09 22:35] LABS: Non-Invasive Expiratory Pressure 6 CMH2O; Non-Invasive Inspiratory Pressure 12 CMH2O; Non-Invasive Vent Rate 12 /MIN
[2022-05-10] VITALS (27 sets, daily range): BP systolic 111–141; BP diastolic 67–83; PULSE 59–126; RESP 12–24; TEMP 36.3–36.8; O2SAT 95–100
--- NOTE | 2022-05-10 01:03 | PC.NURSE ---
patient has this tremor/jerking motion that looks like it happens all over his body. it is almost constant. when you hold his hand while this is starting, you can feel the muscles/tremors moving through him. he said that they start in his hands and feet and move up his extremities. you can see it all over his body.
[2022-05-10] MEDS: IPRATROPIUM BR 0.02% INH SOLN 0.5 MG/2.5 ML VIAL INHALATION ×4 (03:03→23:20)
[2022-05-10] MEDS: ALBUTEROL SULFATE NEB 2.5 MG/3 ML INH 5 MG INHALATION ×4 (03:03→23:20)
[2022-05-10 04:41] LABS: Basophils Percent Auto 0.1 % (0.2-1.2); Hematocrit 37.9 % (42.0-52.0); Hemoglobin 11.5 g/dL (14.0-18.0); Immature Granulocyte Absolute 0.05 K/mm3 (0.00-0.031); Immature Granulocyte Percent A 0.5 % (0-0.5); Lymphocytes Absolute Auto 0.97 K/mm3 (0.9-3.2); Lymphocytes Percent Auto 9.9 % (18.3-44.2); Mean Corpuscular HGB Conc 30.3 g/dl (32-36); Mean Corpuscular Hemoglobin 28.6 pg (26-34); Mean Corpuscular Volume 94.3 fl (80-100); Mean Platelet Volume 9.6 fl (7.4-10.4); Monocytes Absolute Auto 0.4 K/mm3 (0.1-0.6); Monocytes Percent Auto 3.9 % (2.6-8.5); Neutrophils Absolute Auto 8.4 K/mm3 (1.3-6.7); Neutrophils Percent Auto 85.6 % (45.5-73.1); Platelet Count Result 278 k/mm3 (150-375); Red Blood Count 4.02 M/mm3 (4.6-6.20); Red Cell Distribution Width 14.8 % (11.5-14.5); White Blood Count 9.8 K/mm3 (4.5-10.0)
--- NOTE | 2022-05-10 04:53 | PC.NURSE ---
patient has not urinated the entire shift. he tried multiple times without success. bladder scanned patient and over 400 in urine in bladder. called dr bedolla. awaiting call back for orders.
[2022-05-10 05:03] LABS: Blood Urea Nitrogen 13 mg/dL (9-20); Calcium 8.2 mg/dL (8.4-10.2); Carbon Dioxide > 40 mmol/L (22-30); Chloride 97 mmol/L (98-107); Estimated CRCL calculation 100 ml/min; Estimated Glomerular Filt Rate > 60; Glucose 139 mg/dL (65-110); Magnesium 1.9 mg/dL (1.6-2.3); Potassium 4.3 mmol/L (3.4-5.0); Sodium 135 mmol/L (137-145)
[2022-05-10] MEDS: methylPREDNISolone SOD SUCC 125 MG VIAL 60 MG IV PUSH ×4 (06:05→23:07)
[2022-05-10] MEDS: ENOXAPARIN 40 MG/0.4 ML SYRINGE SUB-Q (08:47)
[2022-05-10] MEDS: NYSTATIN 100,000 UNITS/ML SUSP 5 ML ORAL.SUSP PO ×4 (08:47→20:55)
[2022-05-10] MEDS: FAMOTIDINE 20 MG/2 ML VIAL IV PUSH ×2 (08:47→20:55)
--- NOTE | 2022-05-10 12:09 | PM.IMPN ---
Progress Note: A&P Assessment and Plan (1) Acute and chronic respiratory failure with hypercapnia: Code(s): J96.22 - Acute and chronic respiratory failure with hypercapnia Status: Acute Assessment and Plan: Reportedly presented with altered mental status felt to be secondary to hypercapnic respiratory failure. Patient is currently wearing BiPAP at 12/6 with 40% FiO2. He is A&Ox4. Repeat ABG pending to ensure improvment in CO2 Wean BiPAP based on results Continue IV Solumedrol and DuoNebs q4h. Patient established with Dr. Robb in [place] Reports compliance with nightly CPAP On 2.5 L supplemental O2 with exertion only at home. No evidence of pneumonia on CXR. (2) COPD exacerbation: Code(s): J44.1 - Chronic obstructive pulmonary disease with (acute) exacerbation Status: Acute Assessment and Plan: Patient with history of COPD maintained on Trelegy now with diffuse wheezes and new onset yellow phlegm production Continue IV Solu-Medrol and bronchodilators q4h Start Azithromycin x5 days for increased sputum production (3) LEIGHTON inhibitor-aggravated angioedema: Code(s): T78.3XXA - Angioneurotic edema, initial encounter; T46.4X5A - Adverse effect of ykbrstydbnm-wnlpqulmdf-ezsfiv inhibitors, initial encounter Status: Acute Assessment and Plan: Presented with lip swelling. Second episode of this over the past month. Suspect secondary to lisinopril LEIGHTON-inhibitor has been discontinued. LEIGHTON-inhibitor should be avoided in the future Blood pressure is remaining stable off of this medication Symptoms have resolved (4) Oropharyngeal candidiasis: Code(s): B37.0 - Candidal stomatitis Status: Acute Assessment and Plan: Suspect secondary to inhaled corticosteroid, though patient states he rinses his mouth after each use Nystatin swish and swallow qid (5) Tobacco abuse: Code(s): Z72.0 - Tobacco use Status: Acute Assessment and Plan: Patient smokes 1-1.5 ppd for 45 years Counseling regarding tobacco cessation (6) HTN (hypertension): Code(s): I10 - Essential (primary) hypertension Status: Chronic Assessment and Plan: Blood pressure reviewed and has been well controlled. Last BP 111/67 Continue home carvedilol Lisinopril has been discontinued (7) Chronic, continuous use of opioids: Code(s): F11.90 - Opioid use, unspecified, uncomplicated Status: Acute Assessment and Plan: Secondary to chronic back pain from arthritis Patient is followed by pain management Reports 8/10 back pain. Resume home PO percocet with close monitoring due to respiratory illness Subjective Date/time seen: 05/10/22 12:09 Interval history: Date of service: 05/10/2022 Israel Plascencia is a 66-year-old male with a history of CAD, COPD, chronic back pain on narcotics, hypertension, hyperlipidemia, atrial fibrillation, MABEL on CPAP who is seen in follow-up for acute hypercapnic respiratory failure. His is at the bedside who helps to provide history for him. She states that he was feeling ?off? for several weeks. On April 27 he had an outpatient infusion (assuming immunomodulator, though they are unsure) for his RA. He then developed lip swelling and went to an outside ER where he was treated with steroids and Benadryl. No medications were changed. Five days ago, he noticed swelling of his eyes and underneath his eyes, worse on the left side. He was taking Benadryl for this and had some improvement. Yesterday when he woke up he had swelling in his lips. At this time, he states his lip swelling is resolved. He believes his eye swelling is also back to normal. He endorses chronic wheezing that he states is unchanged. He endorses a cough productive of yellow phlegm for the past 4-5 days. He has chronic low back pain which he reports is 8/10 today. He has not had any pain medications sin
[2022-05-10 12:10] LABS: Alveolar/Arterial O2 Gradient 151.3 mmHg; Base Excess ABG 9.7 mEq/l (+/-2.0); Fractional Inspired Oxygen 40 %; HCO3 ABG 36.5 mEq/l (22.0-26.0); Oxygen Content ABG 15.9 %vol (16.0-22.0); Oxygen Saturation ABG 92.3 % (95.0-100.0); Oxyhemoglobin 90.9 % THb (90.0-100.0); PCO2 ABG 59.8 mmHg (35.0-45.0); PO2 ABG 65.1 mmHg (80.0-100.0); PO2 FiO2 Ratio Arterial Blood 1.63 %; Total Hemoglobin 12.4 g/dL (12.0-18.0); pH ABG 7.403 (7.350-7.450)
[2022-05-10 12:12] LABS: Device BIPAP; Modified Allen's Test Pass; Site Drawn RIGHT RADIAL
[2022-05-10 12:13] LABS: Expiratory Pressure 6 cmH2O; Inspiratory Pressure 12 cmH2O
[2022-05-10] MEDS: IPRATROPIUM BR 0.02% INH SOLN 0.5 MG/2.5 ML VIAL (13:48)
[2022-05-10] MEDS: ALBUTEROL SULFATE NEB 2.5 MG/0.5 ML INH 5 MG (13:48)
[2022-05-10] MEDS: oxyCODONE HCL (*CRX) 5 MG TAB IR PO (14:40)
[2022-05-10] MEDS: oxyCODONE/ACETAMINOPHEN (*CRX) 5-325 MG TABLET 1 TABLET PO (14:41)
[2022-05-10] MEDS: MORPHINE SULFATE (*CRX) 4 MG/ML INJ IV PUSH (18:59)
[2022-05-10] MEDS: chlorproMAZINE HCL 25 MG TABLET PO (20:55)
[2022-05-10] MEDS: carvediloL 25 MG TABLET PO (20:55)
--- NOTE | 2022-05-10 23:39 | PC.NURSE ---
patient was given thorazine for hiccups. patients tremor/twitching has stopped at this time.
[2022-05-11] VITALS (28 sets, daily range): BP systolic 117–150; BP diastolic 75–95; PULSE 84–124; RESP 16–24; TEMP 36.1–37.1; O2SAT 90–100
[2022-05-11] MEDS: IPRATROPIUM BR 0.02% INH SOLN 0.5 MG/2.5 ML VIAL INHALATION ×5 (04:18→20:14)
[2022-05-11] MEDS: ALBUTEROL SULFATE NEB 2.5 MG/3 ML INH 5 MG INHALATION ×5 (04:18→20:14)
[2022-05-11 05:14] LABS: Hematocrit 37.8 % (42.0-52.0); Hemoglobin 11.3 g/dL (14.0-18.0); Mean Corpuscular HGB Conc 29.9 g/dl (32-36); Mean Corpuscular Hemoglobin 28.8 pg (26-34); Mean Corpuscular Volume 96.4 fl (80-100); Mean Platelet Volume 9.7 fl (7.4-10.4); Platelet Count Result 267 k/mm3 (150-375); Red Blood Count 3.92 M/mm3 (4.6-6.20); Red Cell Distribution Width 15.5 % (11.5-14.5); White Blood Count 13.8 K/mm3 (4.5-10.0)
[2022-05-11 05:27] LABS: Anion Gap -1 mmol/L (8-16); Blood Urea Nitrogen 21 mg/dL (9-20); Carbon Dioxide 37 mmol/L (22-30); Chloride 98 mmol/L (98-107); Estimated CRCL calculation 87 ml/min; Estimated Glomerular Filt Rate > 60; Glucose 150 mg/dL (65-110); Potassium 4.5 mmol/L (3.4-5.0); Sodium 134 mmol/L (137-145)
[2022-05-11] MEDS: methylPREDNISolone SOD SUCC 125 MG VIAL 60 MG IV PUSH ×2 (05:44→21:12)
[2022-05-11] MEDS: ATORVASTATIN 20 MG TABLET PO (08:55)
[2022-05-11] MEDS: VENLAFAXINE HCL XR 75 MG CAP.ER.24H 225 MG PO (08:55)
[2022-05-11] MEDS: FOLIC ACID 1 MG TABLET 3 MG PO (08:55)
[2022-05-11] MEDS: carvediloL 25 MG TABLET PO ×2 (08:55→21:12)
[2022-05-11] MEDS: FAMOTIDINE 20 MG/2 ML VIAL IV PUSH ×2 (08:56→21:13)
[2022-05-11] MEDS: NYSTATIN 100,000 UNITS/ML SUSP 5 ML ORAL.SUSP PO ×3 (08:56→21:12)
[2022-05-11] MEDS: ASPIRIN 81 MG ENTERIC TABLET PO (08:56)
[2022-05-11] MEDS: ARIPiprazole 2 MG TABLET PO (08:56)
[2022-05-11] MEDS: ENOXAPARIN 40 MG/0.4 ML SYRINGE SUB-Q (08:56)
[2022-05-11 13:01] LABS: Magnesium 2.2 mg/dL (1.6-2.3)
--- NOTE | 2022-05-11 15:57 | P.PNIM_ITS ---
Progress Note: A&P Assessment and Plan (1) Acute and chronic respiratory failure with hypercapnia: Code(s): J96.22 - Acute and chronic respiratory failure with hypercapnia Status: Acute Assessment and Plan: Reportedly presented with altered mental status felt to be secondary to hypercapnic respiratory failure. Patient is currently A&Ox4 but a poor historian. He is on 2L NC. * Repeat ABG shows improvement * Weaned off BiPAP * Continue IV Solumedrol, decrease to q12hr * DuoNebs q4h. * Patient established with Dr. Robb in [place] * Reports compliance with nightly CPAP but RN tells me he has not been compliant with it here * On 2.5 L supplemental O2 with exertion only at home normally * No evidence of pneumonia on CXR (2) COPD exacerbation: Code(s): J44.1 - Chronic obstructive pulmonary disease with (acute) exacerbation Status: Acute Assessment and Plan: Patient with history of COPD maintained on Trelegy now with diffuse wheezes and new onset yellow phlegm production * Continue IV Solu-Medrol and bronchodilators q4h * Azithromycin x5 days for increased sputum production (3) LEIGHTON inhibitor-aggravated angioedema: Code(s): T78.3XXA - Angioneurotic edema, initial encounter; T46.4X5A - Adverse effect of wjtqpzkpbty-trvpiarcle-dmvwfe inhibitors, initial encounter Status: Acute Assessment and Plan: Presented with lip swelling. Second episode of this over the past month. Suspect secondary to lisinopril * LEIGHTON-inhibitor has been discontinued. LEIGHTON-inhibitor should be avoided in the f uture * Blood pressure is remaining stable off of this medication * Symptoms have resolved (4) Oropharyngeal candidiasis: Code(s): B37.0 - Candidal stomatitis Status: Acute Assessment and Plan: Suspect secondary to inhaled corticosteroid, though patient states he rinses his mouth after each use * Nystatin swish and swallow qid (5) Tobacco abuse: Code(s): Z72.0 - Tobacco use Status: Acute Assessment and Plan: Patient smokes 1-1.5 ppd for 45 years * Counseling regarding tobacco cessation (6) HTN (hypertension): Code(s): I10 - Essential (primary) hypertension Status: Chronic Assessment and Plan: Blood pressure reviewed and has been well controlled. Last BP 117/75 * Continue home carvedilol * Lisinopril has been discontinued (7) Chronic, continuous use of opioids: Code(s): F11.90 - Opioid use, unspecified, uncomplicated Status: Acute Assessment and Plan: Secondary to chronic back pain from arthritis * Patient is followed by pain management * Reports 8/10 back pain. Resume home PO percocet with close monitoring due to respiratory illness Subjective Date/time seen: 05/11/22 15:57 Interval history: Israel Plascencia is a 66-year-old male with a history of CAD, COPD, chronic back pain on narcotics, hypertension, hyperlipidemia, atrial fibrillation, MABEL on CPAP who is seen in follow-up for acute hypercapnic respiratory failure. 05/10/22 His is at the bedside who helps to provide history for him. She states that he was feeling ?off? for several weeks. On April 27 he had an outpatient infusion (assuming immunomodulator, though they are unsure) for his RA. He then developed lip swelling and went to an outside ER where he was treated with steroids and Benadryl. No medications were changed. Five days ago, he noticed swelling of his eyes and unde
--- NOTE | 2022-05-11 15:57 | PM.IMPN ---
Progress Note: A&P Assessment and Plan (1) Acute and chronic respiratory failure with hypercapnia: Code(s): J96.22 - Acute and chronic respiratory failure with hypercapnia Status: Acute Assessment and Plan: Reportedly presented with altered mental status felt to be secondary to hypercapnic respiratory failure. Patient is currently A&Ox4 but a poor historian. He is on 2L NC. Repeat ABG shows improvement Weaned off BiPAP Continue IV Solumedrol, decrease to q12hr DuoNebs q4h. Patient established with Dr. Robb in [place] Reports compliance with nightly CPAP but RN tells me he has not been compliant with it here On 2.5 L supplemental O2 with exertion only at home normally No evidence of pneumonia on CXR (2) COPD exacerbation: Code(s): J44.1 - Chronic obstructive pulmonary disease with (acute) exacerbation Status: Acute Assessment and Plan: Patient with history of COPD maintained on Trelegy now with diffuse wheezes and new onset yellow phlegm production Continue IV Solu-Medrol and bronchodilators q4h Azithromycin x5 days for increased sputum production (3) LEIGHTON inhibitor-aggravated angioedema: Code(s): T78.3XXA - Angioneurotic edema, initial encounter; T46.4X5A - Adverse effect of tvgdyrvsxms-uzxmyubnaf-ktipuv inhibitors, initial encounter Status: Acute Assessment and Plan: Presented with lip swelling. Second episode of this over the past month. Suspect secondary to lisinopril LEIGHTON-inhibitor has been discontinued. LEIGHTON-inhibitor should be avoided in the future Blood pressure is remaining stable off of this medication Symptoms have resolved (4) Oropharyngeal candidiasis: Code(s): B37.0 - Candidal stomatitis Status: Acute Assessment and Plan: Suspect secondary to inhaled corticosteroid, though patient states he rinses his mouth after each use Nystatin swish and swallow qid (5) Tobacco abuse: Code(s): Z72.0 - Tobacco use Status: Acute Assessment and Plan: Patient smokes 1-1.5 ppd for 45 years Counseling regarding tobacco cessation (6) HTN (hypertension): Code(s): I10 - Essential (primary) hypertension Status: Chronic Assessment and Plan: Blood pressure reviewed and has been well controlled. Last BP 117/75 Continue home carvedilol Lisinopril has been discontinued (7) Chronic, continuous use of opioids: Code(s): F11.90 - Opioid use, unspecified, uncomplicated Status: Acute Assessment and Plan: Secondary to chronic back pain from arthritis Patient is followed by pain management Reports 8/10 back pain. Resume home PO percocet with close monitoring due to respiratory illness Subjective Date/time seen: 05/11/22 15:57 Interval history: Israel Plascencia is a 66-year-old male with a history of CAD, COPD, chronic back pain on narcotics, hypertension, hyperlipidemia, atrial fibrillation, MABEL on CPAP who is seen in follow-up for acute hypercapnic respiratory failure. 05/10/22 His is at the bedside who helps to provide history for him. She states that he was feeling ?off? for several weeks. On April 27 he had an outpatient infusion (assuming immunomodulator, though they are unsure) for his RA. He then developed lip swelling and went to an outside ER where he was treated with steroids and Benadryl. No medications were changed. Five days ago, he noticed swelling of his eyes and underneath his eyes, worse on the left side. He was taking Benadryl for this and had some improvement. Yesterday when he woke up he had swelling in his lips. At this time, he states his lip swelling is resolved. He believes his eye swelling is also back to normal. He endorses chronic wheezing that he states is unchanged. He endorses a cough productive of yellow phlegm for the past 4-5 days. He has chronic low back pain which he reports is 8/10 today. He
[2022-05-11] MEDS: oxyCODONE/ACETAMINOPHEN (*CRX) 5-325 MG TABLET 1 TABLET PO (17:28)
[2022-05-11] MEDS: oxyCODONE HCL (*CRX) 5 MG TAB IR PO (17:28)
[2022-05-12] VITALS (22 sets, daily range): BP systolic 145–157; BP diastolic 92–96; PULSE 90–117; RESP 14–26; TEMP 36.5–37.1; O2SAT 93–98
[2022-05-12] MEDS: IPRATROPIUM BR 0.02% INH SOLN 0.5 MG/2.5 ML VIAL INHALATION ×4 (00:02→19:56)
[2022-05-12] MEDS: ALBUTEROL SULFATE NEB 2.5 MG/3 ML INH 5 MG INHALATION ×3 (00:02→08:14)
[2022-05-12] MEDS: oxyCODONE/ACETAMINOPHEN (*CRX) 5-325 MG TABLET 1 TABLET PO ×2 (03:03→16:11)
[2022-05-12] MEDS: oxyCODONE HCL (*CRX) 5 MG TAB IR PO ×2 (03:03→16:12)
[2022-05-12 05:00] LABS: Basophils Percent Auto 0.1 % (0.2-1.2); Hematocrit 37.1 % (42.0-52.0); Hemoglobin 11.5 g/dL (14.0-18.0); Immature Granulocyte Absolute 0.11 K/mm3 (0.00-0.031); Immature Granulocyte Percent A 0.8 % (0-0.5); Lymphocytes Absolute Auto 0.86 K/mm3 (0.9-3.2); Lymphocytes Percent Auto 6.4 % (18.3-44.2); Mean Corpuscular Volume 93.7 fl (80-100); Mean Platelet Volume 9.7 fl (7.4-10.4); Monocytes Percent Auto 7.8 % (2.6-8.5); Neutrophils Absolute Auto 11.4 K/mm3 (1.3-6.7); Neutrophils Percent Auto 84.9 % (45.5-73.1); Platelet Count Result 295 k/mm3 (150-375); Red Blood Count 3.96 M/mm3 (4.6-6.20); Red Cell Distribution Width 14.8 % (11.5-14.5); White Blood Count 13.4 K/mm3 (4.5-10.0)
[2022-05-12 05:11] LABS: Alanine Aminotransferase 26 U/L (6-50); Albumin Level 3.3 g/dL (3.5-5.1); Alkaline Phosphatase 114 U/L (38-126); Anion Gap 0 mmol/L (8-16); Aspartate Amino Transferase 39 U/L (17-59); Bilirubin,Total < 0.1 mg/dL (0.2-1.3); Blood Urea Nitrogen 17 mg/dL (9-20); Calcium 7.9 mg/dL (8.4-10.2); Carbon Dioxide 39 mmol/L (22-30); Chloride 96 mmol/L (98-107); Estimated CRCL calculation 77 ml/min; Estimated Glomerular Filt Rate > 60; Glucose 153 mg/dL (65-110); Potassium 4.2 mmol/L (3.4-5.0); Sodium 135 mmol/L (137-145)
[2022-05-12 05:59] LABS: Thyroid Stimulating Hormone Reflex 0.582 uIU/mL (0.465-4.68)
[2022-05-12 06:14] LABS: Vitamin B12 > 1000.0 pg/mL (239-931)
[2022-05-12] MEDS: ENOXAPARIN 40 MG/0.4 ML SYRINGE SUB-Q (09:34)
[2022-05-12] MEDS: ATORVASTATIN 20 MG TABLET PO (09:34)
[2022-05-12] MEDS: VENLAFAXINE HCL XR 75 MG CAP.ER.24H 225 MG PO (09:34)
[2022-05-12] MEDS: methylPREDNISolone SOD SUCC 125 MG VIAL 60 MG IV PUSH ×2 (09:35→20:32)
[2022-05-12] MEDS: FAMOTIDINE 20 MG/2 ML VIAL IV PUSH ×2 (09:35→20:31)
[2022-05-12] MEDS: carvediloL 25 MG TABLET PO ×2 (09:35→20:31)
[2022-05-12] MEDS: NYSTATIN 100,000 UNITS/ML SUSP 5 ML ORAL.SUSP PO ×3 (09:35→20:31)
[2022-05-12] MEDS: ARIPiprazole 2 MG TABLET PO (09:35)
[2022-05-12] MEDS: ASPIRIN 81 MG ENTERIC TABLET PO (09:35)
[2022-05-12] MEDS: FOLIC ACID 1 MG TABLET 3 MG PO (09:35)
--- NOTE | 2022-05-12 12:01 | P.PNIM_ITS ---
Progress Note: A&P Assessment and Plan (1) Acute and chronic respiratory failure with hypercapnia: Code(s): J96.22 - Acute and chronic respiratory failure with hypercapnia Status: Acute Assessment and Plan: Reportedly presented with altered mental status felt to be secondary to hypercapnic respiratory failure. Patient is currently A&Ox4 but a poor historian. He is on 2L NC. * Repeat ABG shows improvement * Weaned off BiPAP * Continue IV Solumedrol, decrease to q12hr * DuoNebs q4h. * Patient established with Dr. Robb in [place] * Reports compliance with nightly CPAP but RN tells me he has not been compliant with it here * On 2.5 L supplemental O2 with exertion only at home normally * No evidence of pneumonia on CXR * Showing improvement but slowly, still wheezing (2) COPD exacerbation: Code(s): J44.1 - Chronic obstructive pulmonary disease with (acute) exacerbation Status: Acute Assessment and Plan: Patient with history of COPD maintained on Trelegy now with diffuse wheezes and new onset yellow phlegm production * Continue IV Solu-Medrol and bronchodilators q4h * Azithromycin x5 days for increased sputum production * Slow improvement daily (3) LEIGHTON inhibitor-aggravated angioedema: Code(s): T78.3XXA - Angioneurotic edema, initial encounter; T46.4X5A - Adverse effect of kjyjcrceexg-udjuqxenpo-qlvisu inhibitors, initial encounter Status: Acute Assessment and Plan: Presented with lip swelling. Second episode of this over the past month. Suspect secondary to lisinopril * LEIGHTON-inhibitor has been discontinued. LEIGHTON-inhibitor should be avoided in the future * Blood pressure is remaining stable off of this medication * Symptoms have resolved (4) Oropharyngeal candidiasis: Code(s): B37.0 - Candidal stomatitis Status: Acute Assessment and Plan: Suspect secondary to inhaled corticosteroid, though patient states he rinses his mouth after each use * Nystatin swish and swallow qid (5) Tobacco abuse: Code(s): Z72.0 - Tobacco use Status: Acute Assessment and Plan: Patient smokes 1-1.5 ppd for 45 years * Counseling regarding tobacco cessation (6) HTN (hypertension): Code(s): I10 - Essential (primary) hypertension Status: Chronic Assessment and Plan: Blood pressure reviewed and has been stable * Continue home carvedilol * Lisinopril has been discontinued (7) Chronic, continuous use of opioids: Code(s): F11.90 - Opioid use, unspecified, uncomplicated Status: Acute Assessment and Plan: Secondary to chronic back pain from arthritis * Patient is followed by pain management * Reports 8/10 back pain. Resume home PO percocet with close monitoring due to respiratory illness (8) Muscle spasm: Code(s): M62.838 - Other muscle spasm Status: Acute Assessment and Plan: -chronic x 3-4 years? states he has never spoken to a doctor about them -involuntary, happen both awake and asleep. Consider psych aspect? -had relief with thorazine -will check MRI brain, possibly outpatient neuro eval? -electrolytes, tsh, B12 unremarkable Subjective Date/time seen: 05/12/22 12:01 Interval history: Israel Plascencia is a 66-year-old male with a history of CAD, COPD, chronic back pain on narcotics, hypertension, hyperlipidemia, atrial fibrillation, MABEL on CPAP
--- NOTE | 2022-05-12 12:01 | PM.IMPN ---
Progress Note: A&P Assessment and Plan (1) Acute and chronic respiratory failure with hypercapnia: Code(s): J96.22 - Acute and chronic respiratory failure with hypercapnia Status: Acute Assessment and Plan: Reportedly presented with altered mental status felt to be secondary to hypercapnic respiratory failure. Patient is currently A&Ox4 but a poor historian. He is on 2L NC. Repeat ABG shows improvement Weaned off BiPAP Continue IV Solumedrol, decrease to q12hr DuoNebs q4h. Patient established with Dr. Robb in [place] Reports compliance with nightly CPAP but RN tells me he has not been compliant with it here On 2.5 L supplemental O2 with exertion only at home normally No evidence of pneumonia on CXR Showing improvement but slowly, still wheezing (2) COPD exacerbation: Code(s): J44.1 - Chronic obstructive pulmonary disease with (acute) exacerbation Status: Acute Assessment and Plan: Patient with history of COPD maintained on Trelegy now with diffuse wheezes and new onset yellow phlegm production Continue IV Solu-Medrol and bronchodilators q4h Azithromycin x5 days for increased sputum production Slow improvement daily (3) LEIGHTON inhibitor-aggravated angioedema: Code(s): T78.3XXA - Angioneurotic edema, initial encounter; T46.4X5A - Adverse effect of otamrzthvnf-nrvjxspyzw-zjidoi inhibitors, initial encounter Status: Acute Assessment and Plan: Presented with lip swelling. Second episode of this over the past month. Suspect secondary to lisinopril LEIGHTON-inhibitor has been discontinued. LEIGHTON-inhibitor should be avoided in the future Blood pressure is remaining stable off of this medication Symptoms have resolved (4) Oropharyngeal candidiasis: Code(s): B37.0 - Candidal stomatitis Status: Acute Assessment and Plan: Suspect secondary to inhaled corticosteroid, though patient states he rinses his mouth after each use Nystatin swish and swallow qid (5) Tobacco abuse: Code(s): Z72.0 - Tobacco use Status: Acute Assessment and Plan: Patient smokes 1-1.5 ppd for 45 years Counseling regarding tobacco cessation (6) HTN (hypertension): Code(s): I10 - Essential (primary) hypertension Status: Chronic Assessment and Plan: Blood pressure reviewed and has been stable Continue home carvedilol Lisinopril has been discontinued (7) Chronic, continuous use of opioids: Code(s): F11.90 - Opioid use, unspecified, uncomplicated Status: Acute Assessment and Plan: Secondary to chronic back pain from arthritis Patient is followed by pain management Reports 8/ back pain. Resume home PO percocet with close monitoring due to respiratory illness (8) Muscle spasm: Code(s): M62.838 - Other muscle spasm Status: Acute Assessment and Plan: -chronic x 3-4 years? states he has never spoken to a doctor about them -involuntary, happen both awake and asleep. Consider psych aspect? -had relief with thorazine -will check MRI brain, possibly outpatient neuro eval? -electrolytes, tsh, B12 unremarkable Subjective Date/time seen: 05/12/22 12:01 Interval history: Israel Plascencia is a 66-year-old male with a history of CAD, COPD, chronic back pain on narcotics, hypertension, hyperlipidemia, atrial fibrillation, MABEL on CPAP who is seen in follow-up for acute hypercapnic respiratory failure. 05/10/22 His is at the bedside who helps to provide history for him. She states that he was feeling ?off? for several weeks. On April 27 he had an outpatient infusion (assuming immunomodulator, though they are unsure) for his RA. He then developed lip swelling and went to an outside ER where he was treated with steroids and Benadryl. No medications were changed. Five days ago, he noticed swelling of his eyes and underneath his eye
--- NOTE | 2022-05-12 16:06 | PC.NURSE ---
This patient, Israel Long Temo Stanley, was received from [[facility] ] on 05/12/22 at 1606. Patient oriented to unit policies and routines. Patient sitting on side of bed with no complaints at this time. Will continue to monitor.
--- NOTE | 2022-05-12 16:06 | PC.NURSE ---
This patient, Israel Plascencia ., was transferred to [facility] on 05/12/22 at 1606. Personal belongings sent with patient. Report given to Myriam VERONICA. Appropriate documentation sent with patient.
[2022-05-12] MEDS: ALBUTEROL SULFATE NEB 2.5 MG/0.5 ML INH 5 MG (19:59)
[2022-05-12] MEDS: MORPHINE SULFATE (*CRX) 4 MG/ML INJ IV PUSH (21:24)
[2022-05-13] VITALS (22 sets, daily range): BP systolic 117–158; BP diastolic 71–90; PULSE 90–110; RESP 12–28; TEMP 36.3–36.6; O2SAT 93–98
[2022-05-13] MEDS: IPRATROPIUM BR 0.02% INH SOLN 0.5 MG/2.5 ML VIAL INHALATION ×6 (00:04→20:30)
[2022-05-13] MEDS: ALBUTEROL SULFATE NEB 2.5 MG/0.5 ML INH 5 MG ×4 (00:05→16:45)
[2022-05-13] MEDS: ALBUTEROL SULFATE NEB 2.5 MG/3 ML INH 5 MG INHALATION ×2 (04:06→20:30)
[2022-05-13 05:40] LABS: Basophils Percent Auto 0.1 % (0.2-1.2); Hematocrit 35.6 % (42.0-52.0); Hemoglobin 10.8 g/dL (14.0-18.0); Immature Granulocyte Absolute 0.06 K/mm3 (0.00-0.031); Immature Granulocyte Percent A 0.7 % (0-0.5); Lymphocytes Absolute Auto 0.82 K/mm3 (0.9-3.2); Lymphocytes Percent Auto 9.4 % (18.3-44.2); Mean Corpuscular HGB Conc 30.3 g/dl (32-36); Mean Corpuscular Hemoglobin 28.6 pg (26-34); Mean Corpuscular Volume 94.2 fl (80-100); Mean Platelet Volume 9.9 fl (7.4-10.4); Monocytes Absolute Auto 0.5 K/mm3 (0.1-0.6); Neutrophils Absolute Auto 7.4 K/mm3 (1.3-6.7); Neutrophils Percent Auto 83.8 % (45.5-73.1); Platelet Count Result 265 k/mm3 (150-375); Red Blood Count 3.78 M/mm3 (4.6-6.20); Red Cell Distribution Width 14.6 % (11.5-14.5); White Blood Count 8.8 K/mm3 (4.5-10.0)
[2022-05-13 05:57] LABS: Blood Urea Nitrogen 18 mg/dL (9-20); Calcium 7.7 mg/dL (8.4-10.2); Carbon Dioxide > 40 mmol/L (22-30); Chloride 95 mmol/L (98-107); Estimated CRCL calculation 100 ml/min; Estimated Glomerular Filt Rate > 60; Glucose 148 mg/dL (65-110); Potassium 4.7 mmol/L (3.4-5.0); Sodium 134 mmol/L (137-145)
[2022-05-13] MEDS: FOLIC ACID 1 MG TABLET 3 MG PO (08:07)
[2022-05-13] MEDS: VENLAFAXINE HCL XR 75 MG CAP.ER.24H 225 MG PO (08:08)
[2022-05-13] MEDS: ARIPiprazole 2 MG TABLET PO (08:08)
[2022-05-13] MEDS: ATORVASTATIN 20 MG TABLET PO (08:09)
[2022-05-13] MEDS: NYSTATIN 100,000 UNITS/ML SUSP 5 ML ORAL.SUSP PO ×4 (08:09→20:26)
[2022-05-13] MEDS: ASPIRIN 81 MG ENTERIC TABLET PO (08:09)
[2022-05-13] MEDS: carvediloL 25 MG TABLET PO ×2 (08:09→20:26)
[2022-05-13] MEDS: methylPREDNISolone SOD SUCC 125 MG VIAL 60 MG IV PUSH ×2 (08:10→20:27)
[2022-05-13] MEDS: FAMOTIDINE 20 MG/2 ML VIAL IV PUSH ×2 (08:10→20:26)
[2022-05-13] MEDS: ENOXAPARIN 40 MG/0.4 ML SYRINGE SUB-Q (08:10)
--- NOTE | 2022-05-13 10:38 | P.PNIM_ITS ---
Progress Note: A&P Assessment and Plan (1) Acute and chronic respiratory failure with hypercapnia: Code(s): J96.22 - Acute and chronic respiratory failure with hypercapnia Status: Acute Assessment and Plan: Reportedly presented with altered mental status felt to be secondary to hypercapnic respiratory failure. Patient is currently A&Ox4 but a poor historian. He is on 2L NC. * Patient established with Dr. Robb in [place] * Reports compliance with nightly CPAP * Repeat ABG shows improvement * No evidence of pneumonia on CXR * Weaned off BiPAP * On 2.5 L supplemental O2 with exertion only at home normally, currently on 2L NC at rest * Have been weaning IV solumedrol, no wheezing today, will switch to oral prednisone * continue DuoNebs q4h * plan for home O2 eval tomorrow as he is still on oxygen at rest, weaning down to oral steroids, hopeful dc soon (2) COPD exacerbation: Code(s): J44.1 - Chronic obstructive pulmonary disease with (acute) exacerbation Status: Acute Assessment and Plan: Patient with history of COPD maintained on Trelegy now with diffuse wheezes and new onset yellow phlegm production * Continue steroid and bronchodilators q4h * Azithromycin x5 days for increased sputum production * Slowly improving (3) LEIGHTON inhibitor-aggravated angioedema: Code(s): T78.3XXA - Angioneurotic edema, initial encounter; T46.4X5A - Adverse effect of gowvolcoqdr-kspxyxktav-pgftpz inhibitors, initial encounter Status: Acute Assessment and Plan: Presented with lip swelling. Second episode of this over the past month. Suspect secondary to lisinopril * LEIGHTON-inhibitor has been discontinued. LEIGHTON-inhibitor should be avoided in the future * Blood pressure is remaining stable off of this medication * Symptoms have resolved (4) Oropharyngeal candidiasis: Code(s): B37.0 - Candidal stomatitis Status: Acute Assessment and Plan: Suspect secondary to inhaled corticosteroid, though patient states he rinses his mouth after each use * Nystatin swish and swallow qid (5) Tobacco abuse: Code(s): Z72.0 - Tobacco use Status: Acute Assessment and Plan: Patient smokes 1-1.5 ppd for 45 years * Counseling regarding tobacco cessation (6) HTN (hypertension): Code(s): I10 - Essential (primary) hypertension Status: Chronic Assessment and Plan: Blood pressure reviewed and has been stable * Continue home carvedilol * Lisinopril has been discontinued (7) Chronic, continuous use of opioids: Code(s): F11.90 - Opioid use, unspecified, uncomplicated Status: Acute Assessment and Plan: Secondary to chronic back pain from arthritis * Patient is followed by pain management * Reports 8/10 back pain. Resume home PO percocet with close monitoring due to respiratory illness (8) Muscle spasm: Code(s): M62.838 - Other muscle spasm Status: Acute Assessment and Plan: -chronic x 3-4 years? states he has never spoken to a doctor about them -involuntary, happen both awake and asleep. Consider psych aspect? -had relief with thorazine x1 -MRI brain pending, possibly outpatient neuro eval? -electrolytes, tsh, B12 unremarkable Subjective Date/time seen: 05/13/22 10:38 Interval history: Israel Plascencia is a 66-year-old male with a history of CAD, COPD, chronic back pain o
--- NOTE | 2022-05-13 10:38 | PM.IMPN ---
Progress Note: A&P Assessment and Plan (1) Acute and chronic respiratory failure with hypercapnia: Code(s): J96.22 - Acute and chronic respiratory failure with hypercapnia Status: Acute Assessment and Plan: Reportedly presented with altered mental status felt to be secondary to hypercapnic respiratory failure. Patient is currently A&Ox4 but a poor historian. He is on 2L NC. Patient established with Dr. Robb in [place] Reports compliance with nightly CPAP Repeat ABG shows improvement No evidence of pneumonia on CXR Weaned off BiPAP On 2.5 L supplemental O2 with exertion only at home normally, currently on 2L NC at rest Have been weaning IV solumedrol, no wheezing today, will switch to oral prednisone continue DuoNebs q4h plan for home O2 eval tomorrow as he is still on oxygen at rest, weaning down to oral steroids, hopeful dc soon (2) COPD exacerbation: Code(s): J44.1 - Chronic obstructive pulmonary disease with (acute) exacerbation Status: Acute Assessment and Plan: Patient with history of COPD maintained on Trelegy now with diffuse wheezes and new onset yellow phlegm production Continue steroid and bronchodilators q4h Azithromycin x5 days for increased sputum production Slowly improving (3) LEIGHTON inhibitor-aggravated angioedema: Code(s): T78.3XXA - Angioneurotic edema, initial encounter; T46.4X5A - Adverse effect of szlpmhtusxq-prpdctmzoy-qzpqxd inhibitors, initial encounter Status: Acute Assessment and Plan: Presented with lip swelling. Second episode of this over the past month. Suspect secondary to lisinopril LEIGHTON-inhibitor has been discontinued. LEIGHTON-inhibitor should be avoided in the future Blood pressure is remaining stable off of this medication Symptoms have resolved (4) Oropharyngeal candidiasis: Code(s): B37.0 - Candidal stomatitis Status: Acute Assessment and Plan: Suspect secondary to inhaled corticosteroid, though patient states he rinses his mouth after each use Nystatin swish and swallow qid (5) Tobacco abuse: Code(s): Z72.0 - Tobacco use Status: Acute Assessment and Plan: Patient smokes 1-1.5 ppd for 45 years Counseling regarding tobacco cessation (6) HTN (hypertension): Code(s): I10 - Essential (primary) hypertension Status: Chronic Assessment and Plan: Blood pressure reviewed and has been stable Continue home carvedilol Lisinopril has been discontinued (7) Chronic, continuous use of opioids: Code(s): F11.90 - Opioid use, unspecified, uncomplicated Status: Acute Assessment and Plan: Secondary to chronic back pain from arthritis Patient is followed by pain management Reports 8/10 back pain. Resume home PO percocet with close monitoring due to respiratory illness (8) Muscle spasm: Code(s): M62.838 - Other muscle spasm Status: Acute Assessment and Plan: -chronic x 3-4 years? states he has never spoken to a doctor about them -involuntary, happen both awake and asleep. Consider psych aspect? -had relief with thorazine x1 -MRI brain pending, possibly outpatient neuro eval? -electrolytes, tsh, B12 unremarkable Subjective Date/time seen: 05/13/22 10:38 Interval history: Israel Plascencia is a 66-year-old male with a history of CAD, COPD, chronic back pain on narcotics, hypertension, hyperlipidemia, atrial fibrillation, MABEL on CPAP who is seen in follow-up for acute hypercapnic respiratory failure. continues to improve slowly. denies cp/sob. still on 2L NC at rest. no complaints. Review of Systems Review of Systems: All systems reviewed & are unremarkable except as noted in HPI and below Exam Narrative: General: Than, chronically ill-appearing 66-year-old male, semi recumbent in bed, comfortable, NARD Neuro: awake, alert and oriented x4, speech c
[2022-05-13] MEDS: oxyCODONE HCL (*CRX) 5 MG TAB IR PO (14:02)
[2022-05-13] MEDS: oxyCODONE/ACETAMINOPHEN (*CRX) 5-325 MG TABLET 1 TABLET PO (14:02)
[2022-05-13] MEDS: MORPHINE SULFATE (*CRX) 4 MG/ML INJ IV PUSH (20:25)
[2022-05-14] VITALS (23 sets, daily range): BP systolic 140–170; BP diastolic 84–93; PULSE 87–104; RESP 15–22; TEMP 35.8–36.6; O2SAT 78–96
[2022-05-14] MEDS: ALBUTEROL SULFATE NEB 2.5 MG/3 ML INH 5 MG INHALATION ×5 (00:32→21:28)
[2022-05-14] MEDS: IPRATROPIUM BR 0.02% INH SOLN 0.5 MG/2.5 ML VIAL INHALATION ×5 (00:32→21:28)
[2022-05-14 05:43] LABS: Basophils Percent Auto 0.1 % (0.2-1.2); Hematocrit 35.4 % (42.0-52.0); Hemoglobin 10.5 g/dL (14.0-18.0); Immature Granulocyte Absolute 0.08 K/mm3 (0.00-0.031); Immature Granulocyte Percent A 0.8 % (0-0.5); Lymphocytes Absolute Auto 0.91 K/mm3 (0.9-3.2); Lymphocytes Percent Auto 8.8 % (18.3-44.2); Mean Corpuscular HGB Conc 29.7 g/dl (32-36); Mean Corpuscular Hemoglobin 28.1 pg (26-34); Mean Corpuscular Volume 94.7 fl (80-100); Mean Platelet Volume 10.1 fl (7.4-10.4); Monocytes Absolute Auto 1.1 K/mm3 (0.1-0.6); Monocytes Percent Auto 10.7 % (2.6-8.5); Neutrophils Absolute Auto 8.3 K/mm3 (1.3-6.7); Neutrophils Percent Auto 79.6 % (45.5-73.1); Platelet Count Result 267 k/mm3 (150-375); Red Blood Count 3.74 M/mm3 (4.6-6.20); Red Cell Distribution Width 14.8 % (11.5-14.5); White Blood Count 10.4 K/mm3 (4.5-10.0)
[2022-05-14 05:54] LABS: Blood Urea Nitrogen 21 mg/dL (9-20); Calcium 7.7 mg/dL (8.4-10.2); Carbon Dioxide > 40 mmol/L (22-30); Chloride 94 mmol/L (98-107); Estimated CRCL calculation 100 ml/min; Estimated Glomerular Filt Rate > 60; Glucose 145 mg/dL (65-110); Potassium 4.3 mmol/L (3.4-5.0); Sodium 135 mmol/L (137-145)
[2022-05-14] MEDS: ASPIRIN 81 MG ENTERIC TABLET PO (08:43)
[2022-05-14] MEDS: ARIPiprazole 2 MG TABLET PO (08:43)
[2022-05-14] MEDS: carvediloL 25 MG TABLET PO ×2 (08:43→20:13)
[2022-05-14] MEDS: predniSONE 10 MG TABLET 40 MG PO (08:43)
[2022-05-14] MEDS: ENOXAPARIN 40 MG/0.4 ML SYRINGE SUB-Q (08:43)
[2022-05-14] MEDS: FOLIC ACID 1 MG TABLET 3 MG PO (08:43)
[2022-05-14] MEDS: FAMOTIDINE 20 MG/2 ML VIAL IV PUSH ×2 (08:43→20:13)
[2022-05-14] MEDS: VENLAFAXINE HCL XR 75 MG CAP.ER.24H 225 MG PO (08:44)
[2022-05-14] MEDS: NYSTATIN 100,000 UNITS/ML SUSP 5 ML ORAL.SUSP PO ×4 (08:44→20:13)
[2022-05-14] MEDS: ATORVASTATIN 20 MG TABLET PO (08:44)
[2022-05-14] MEDS: oxyCODONE HCL (*CRX) 5 MG TAB IR PO ×2 (09:00→18:34)
[2022-05-14] MEDS: oxyCODONE/ACETAMINOPHEN (*CRX) 5-325 MG TABLET 1 TABLET PO ×2 (09:00→18:34)
--- NOTE | 2022-05-14 10:00 | P.PNIM_ITS ---
Progress Note: A&P Assessment and Plan (1) Acute and chronic respiratory failure with hypercapnia: Code(s): J96.22 - Acute and chronic respiratory failure with hypercapnia Status: Acute Assessment and Plan: Reportedly presented with altered mental status felt to be secondary to hypercapnic respiratory failure. Patient is currently A&Ox4 but a poor historian. He is on 2L NC. * Patient established with Dr. Robb in [place] * Reports compliance with nightly CPAP * Repeat ABG shows improvement * No evidence of pneumonia on CXR * Weaned off BiPAP * On 2.5 L supplemental O2 with exertion only at home normally, currently on 2L NC at rest * Have been weaning IV solumedrol, slowly improving, will switch to oral prednisone today * continue DuoNebs q4h * plan for home O2 eval today, likely observe one more night as he was wheezing again today and slightly more sob (2) COPD exacerbation: Code(s): J44.1 - Chronic obstructive pulmonary disease with (acute) exacerbation Status: Acute Assessment and Plan: Patient with history of COPD maintained on Trelegy now with diffuse wheezes and new onset yellow phlegm production * Continue steroid and bronchodilators q4h * Azithromycin x5 days for increased sputum production * Slowly improving (3) LEIGHTON inhibitor-aggravated angioedema: Code(s): T78.3XXA - Angioneurotic edema, initial encounter; T46.4X5A - Adverse effect of pdubvkdwcbi-mvhuvbpylu-mcybni inhibitors, initial encounter Status: Acute Assessment and Plan: Presented with lip swelling. Second episode of this over the past month. Suspect secondary to lisinopril * LEIGHTON-inhibitor has been discontinued. LEIGHTON-inhibitor should be avoided in the future * Blood pressure is remaining stable off of this medication * Symptoms have resolved (4) Oropharyngeal candidiasis: Code(s): B37.0 - Candidal stomatitis Status: Acute Assessment and Plan: Suspect secondary to inhaled corticosteroid, though patient states he rinses his mouth after each use * Nystatin swish and swallow qid (5) Tobacco abuse: Code(s): Z72.0 - Tobacco use Status: Acute Assessment and Plan: Patient smokes 1-1.5 ppd for 45 years * Counseling regarding tobacco cessation (6) HTN (hypertension): Code(s): I10 - Essential (primary) hypertension Status: Chronic Assessment and Plan: Blood pressure reviewed and has been stable * Continue home carvedilol * Lisinopril has been discontinued as above (7) Chronic, continuous use of opioids: Code(s): F11.90 - Opioid use, unspecified, uncomplicated Status: Acute Assessment and Plan: Secondary to chronic back pain from arthritis * Patient is followed by pain management * Reports 8/10 back pain. Resume home PO percocet with close monitoring due to respiratory illness (8) Muscle spasm: Code(s): M62.838 - Other muscle spasm Status: Acute Assessment and Plan: -chronic x 3-4 years? states he has never spoken to a doctor about them -involuntary, happen both awake and asleep. Consider psych aspect? -had relief with thorazine x1 -MRI brain negative -electrolytes, tsh, B12 unremarkable Subjective Date/time seen: 05/14/22 10:00 Interval history: Israel Plascencia is a 66-year-old male with a history of CAD, COPD, chronic back pain on narcotics, hypert
--- NOTE | 2022-05-14 10:00 | PM.IMPN ---
Progress Note: A&P Assessment and Plan (1) Acute and chronic respiratory failure with hypercapnia: Code(s): J96.22 - Acute and chronic respiratory failure with hypercapnia Status: Acute Assessment and Plan: Reportedly presented with altered mental status felt to be secondary to hypercapnic respiratory failure. Patient is currently A&Ox4 but a poor historian. He is on 2L NC. Patient established with Dr. Robb in [place] Reports compliance with nightly CPAP Repeat ABG shows improvement No evidence of pneumonia on CXR Weaned off BiPAP On 2.5 L supplemental O2 with exertion only at home normally, currently on 2L NC at rest Have been weaning IV solumedrol, slowly improving, will switch to oral prednisone today continue DuoNebs q4h plan for home O2 eval today, likely observe one more night as he was wheezing again today and slightly more sob (2) COPD exacerbation: Code(s): J44.1 - Chronic obstructive pulmonary disease with (acute) exacerbation Status: Acute Assessment and Plan: Patient with history of COPD maintained on Trelegy now with diffuse wheezes and new onset yellow phlegm production Continue steroid and bronchodilators q4h Azithromycin x5 days for increased sputum production Slowly improving (3) LEIGHTON inhibitor-aggravated angioedema: Code(s): T78.3XXA - Angioneurotic edema, initial encounter; T46.4X5A - Adverse effect of dttqsobxsfb-ynzwefxvnj-zvsldz inhibitors, initial encounter Status: Acute Assessment and Plan: Presented with lip swelling. Second episode of this over the past month. Suspect secondary to lisinopril LEIGHTON-inhibitor has been discontinued. LEIGHTON-inhibitor should be avoided in the future Blood pressure is remaining stable off of this medication Symptoms have resolved (4) Oropharyngeal candidiasis: Code(s): B37.0 - Candidal stomatitis Status: Acute Assessment and Plan: Suspect secondary to inhaled corticosteroid, though patient states he rinses his mouth after each use Nystatin swish and swallow qid (5) Tobacco abuse: Code(s): Z72.0 - Tobacco use Status: Acute Assessment and Plan: Patient smokes 1-1.5 ppd for 45 years Counseling regarding tobacco cessation (6) HTN (hypertension): Code(s): I10 - Essential (primary) hypertension Status: Chronic Assessment and Plan: Blood pressure reviewed and has been stable Continue home carvedilol Lisinopril has been discontinued as above (7) Chronic, continuous use of opioids: Code(s): F11.90 - Opioid use, unspecified, uncomplicated Status: Acute Assessment and Plan: Secondary to chronic back pain from arthritis Patient is followed by pain management Reports 06/22 back pain. Resume home PO percocet with close monitoring due to respiratory illness (8) Muscle spasm: Code(s): M62.838 - Other muscle spasm Status: Acute Assessment and Plan: -chronic x 3-4 years? states he has never spoken to a doctor about them -involuntary, happen both awake and asleep. Consider psych aspect? -had relief with thorazine x1 -MRI brain negative -electrolytes, tsh, B12 unremarkable Subjective Date/time seen: 05/14/22 10:00 Interval history: Israel Plascencia is a 66-year-old male with a history of CAD, COPD, chronic back pain on narcotics, hypertension, hyperlipidemia, atrial fibrillation, MABEL on CPAP who is seen in follow-up for acute hypercapnic respiratory failure. Breathing not as good today as yesterday but he states not far from his baseline. He is still on 2L NC at rest when he is normally on RA at rest. He admits to mild wheezing this morning and productive cough. No cp. Review of Systems Review of Systems: All systems reviewed & are unremarkable except as noted in HPI and below Exam Narrative: General: Than, chronically ill-appear
[2022-05-15] VITALS (17 sets, daily range): BP systolic 123; BP diastolic 80; PULSE 61–97; RESP 16–20; TEMP 36.5; O2SAT 86–94
[2022-05-15] MEDS: IPRATROPIUM BR 0.02% INH SOLN 0.5 MG/2.5 ML VIAL INHALATION ×4 (01:00→12:09)
[2022-05-15] MEDS: ALBUTEROL SULFATE NEB 2.5 MG/3 ML INH 5 MG INHALATION ×4 (01:00→12:10)
[2022-05-15 05:49] LABS: Basophils Percent Auto 0.2 % (0.2-1.2); Eosinophils Absolute Auto 0.1 K/mm3 (0-0.3); Eosinophils Percent Auto 0.5 % (0-4.4); Hematocrit 35.2 % (42.0-52.0); Hemoglobin 10.7 g/dL (14.0-18.0); Immature Granulocyte Percent A 0.9 % (0-0.5); Lymphocytes Absolute Auto 2.13 K/mm3 (0.9-3.2); Lymphocytes Percent Auto 19.7 % (18.3-44.2); Mean Corpuscular HGB Conc 30.4 g/dl (32-36); Mean Corpuscular Hemoglobin 28.2 pg (26-34); Mean Corpuscular Volume 92.9 fl (80-100); Mean Platelet Volume 9.9 fl (7.4-10.4); Monocytes Absolute Auto 1.3 K/mm3 (0.1-0.6); Neutrophils Absolute Auto 7.2 K/mm3 (1.3-6.7); Neutrophils Percent Auto 66.7 % (45.5-73.1); Platelet Count Result 268 k/mm3 (150-375); Red Blood Count 3.79 M/mm3 (4.6-6.20); Red Cell Distribution Width 14.6 % (11.5-14.5); White Blood Count 10.8 K/mm3 (4.5-10.0)
[2022-05-15 06:10] LABS: Blood Urea Nitrogen 24 mg/dL (9-20); Calcium 7.8 mg/dL (8.4-10.2); Carbon Dioxide > 40 mmol/L (22-30); Chloride 94 mmol/L (98-107); Estimated CRCL calculation 100 ml/min; Estimated Glomerular Filt Rate > 60; Glucose 115 mg/dL (65-110); Potassium 4.3 mmol/L (3.4-5.0); Sodium 134 mmol/L (137-145)
[2022-05-15] MEDS: predniSONE 10 MG TABLET 40 MG PO (08:49)
[2022-05-15] MEDS: ENOXAPARIN 40 MG/0.4 ML SYRINGE SUB-Q (08:50)
[2022-05-15] MEDS: ATORVASTATIN 20 MG TABLET PO (08:50)
[2022-05-15] MEDS: ARIPiprazole 2 MG TABLET PO (08:50)
[2022-05-15] MEDS: FOLIC ACID 1 MG TABLET 3 MG PO (08:50)
[2022-05-15] MEDS: FAMOTIDINE 20 MG/2 ML VIAL IV PUSH (08:50)
[2022-05-15] MEDS: VENLAFAXINE HCL XR 75 MG CAP.ER.24H 225 MG PO (08:50)
[2022-05-15] MEDS: ASPIRIN 81 MG ENTERIC TABLET PO (08:50)
[2022-05-15] MEDS: NYSTATIN 100,000 UNITS/ML SUSP 5 ML ORAL.SUSP PO (08:50)
[2022-05-15] MEDS: carvediloL 25 MG TABLET PO (08:50)
[2022-05-15] MEDS: oxyCODONE HCL (*CRX) 5 MG TAB IR PO (08:58)
[2022-05-15] MEDS: oxyCODONE/ACETAMINOPHEN (*CRX) 5-325 MG TABLET 1 TABLET PO (08:58)
--- NOTE | 2022-05-15 10:14 | PC.NURSE ---
spoke with respiratory, stated they will complete patient's home O2 evaluation today at some point
--- NOTE | 2022-05-15 11:26 | P.DS_ITS ---
DS: Admitting Diagnosis Discharge Date 05/15/22 Admitting Diagnosis acute respiratory failure DS: Discharge Diagnosis Discharge Diagnosis (1) Acute and chronic respiratory failure with hypercapnia: Code(s): J96.22 - Acute and chronic respiratory failure with hypercapnia Status: Acute Assessment and Plan: Reportedly presented with altered mental status felt to be secondary to hypercapnic respiratory failure. Patient is currently A&Ox4 but a poor historian. He is on 2L NC. * Patient established with Dr. Robb in [place] * Reports compliance with nightly CPAP * Repeat ABG shows improvement * No evidence of pneumonia on CXR * Weaned off BiPAP * On 2.5 L supplemental O2 with exertion only at home normally, currently on 2L NC at rest * Have been weaning IV solumedrol, slowly improving, switched to oral prednisone taper yesterday * continue DuoNebs q4h * home O2 eval today shows that he only needs his normal 2L NC w/ exertion (2) COPD exacerbation: Code(s): J44.1 - Chronic obstructive pulmonary disease with (acute) exacerbation Status: Acute Assessment and Plan: Patient with history of COPD maintained on Trelegy now with diffuse wheezes and new onset yellow phlegm production * Continue steroid and bronchodilators q4h * Completed Azithromycin x5 days for increased sputum production * improved, 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 Second episode of this over the past month. Suspect secondary to lisinopril * LEIGHTON-inhibitor has been discontinued. LEIGHTON-inhibitor should be avoided in the future * Blood pressure is remaining stable off of this medication * Symptoms have resolved (4) Oropharyngeal candidiasis: Code(s): B37.0 - Candidal stomatitis Status: Acute Assessment and Plan: Suspect secondary to inhaled corticosteroid, though patient states he rinses his mouth after each use * Nystatin swish and swallow qid (5) Tobacco abuse: Code(s): Z72.0 - Tobacco use Status: Acute Assessment and Plan: Patient smokes 1-1.5 ppd for 45 years * Counseling regarding tobacco cessation (6) HTN (hypertension): Code(s): I10 - Essential (primary) hypertension Status: Chronic Assessment and Plan: Blood pressure reviewed and has been stable * Continue home carvedilol * Lisinopril has been discontinued as above (7) Chronic, continuous use of opioids: Code(s): F11.90 - Opioid use, unspecified, uncomplicated Status: Acute Assessment and Plan: Secondary to chronic back pain from arthritis * Patient is followed by pain management * Reports 8/10 back pain. Resumed home PO percocet with close monitoring due to respiratory illness (8) Muscle spasm: Code(s): M62.838 - Other muscle spasm Status: Acute Assessment and Plan: -chronic x 3-4 years? states he has never spoken to a doctor about them -involuntary, happen both awake and asleep. Consider psych aspect? -had relief with thorazine x1 -MRI brain negative -electrolytes, tsh, B12 unremarkable -outpatient pcp/neuro consult DS: Summary
--- NOTE | 2022-05-15 11:26 | PM.DS ---
DS: Admitting Diagnosis Discharge Date 05/15/22 Admitting Diagnosis acute respiratory failure DS: Discharge Diagnosis Discharge Diagnosis (1) Acute and chronic respiratory failure with hypercapnia: Code(s): J96.22 - Acute and chronic respiratory failure with hypercapnia Status: Acute Assessment and Plan: Reportedly presented with altered mental status felt to be secondary to hypercapnic respiratory failure. Patient is currently A&Ox4 but a poor historian. He is on 2L NC. Patient established with Dr. Robb in [place] Reports compliance with nightly CPAP Repeat ABG shows improvement No evidence of pneumonia on CXR Weaned off BiPAP On 2.5 L supplemental O2 with exertion only at home normally, currently on 2L NC at rest Have been weaning IV solumedrol, slowly improving, switched to oral prednisone taper yesterday continue DuoNebs q4h home O2 eval today shows that he only needs his normal 2L NC w/ exertion (2) COPD exacerbation: Code(s): J44.1 - Chronic obstructive pulmonary disease with (acute) exacerbation Status: Acute Assessment and Plan: Patient with history of COPD maintained on Trelegy now with diffuse wheezes and new onset yellow phlegm production Continue steroid and bronchodilators q4h Completed Azithromycin x5 days for increased sputum production improved, 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 Second episode of this over the past month. Suspect secondary to lisinopril LEIGHTON-inhibitor has been discontinued. LEIGHTON-inhibitor should be avoided in the future Blood pressure is remaining stable off of this medication Symptoms have resolved (4) Oropharyngeal candidiasis: Code(s): B37.0 - Candidal stomatitis Status: Acute Assessment and Plan: Suspect secondary to inhaled corticosteroid, though patient states he rinses his mouth after each use Nystatin swish and swallow qid (5) Tobacco abuse: Code(s): Z72.0 - Tobacco use Status: Acute Assessment and Plan: Patient smokes 1-1.5 ppd for 45 years Counseling regarding tobacco cessation (6) HTN (hypertension): Code(s): I10 - Essential (primary) hypertension Status: Chronic Assessment and Plan: Blood pressure reviewed and has been stable Continue home carvedilol Lisinopril has been discontinued as above (7) Chronic, continuous use of opioids: Code(s): F11.90 - Opioid use, unspecified, uncomplicated Status: Acute Assessment and Plan: Secondary to chronic back pain from arthritis Patient is followed by pain management Reports 8/10 back pain. Resumed home PO percocet with close monitoring due to respiratory illness (8) Muscle spasm: Code(s): M62.838 - Other muscle spasm Status: Acute Assessment and Plan: -chronic x 3-4 years? states he has never spoken to a doctor about them -involuntary, happen both awake and asleep. Consider psych aspect? -had relief with thorazine x1 -MRI brain negative -electrolytes, tsh, B12 unremarkable -outpatient pcp/neuro consult DS: Summary Hospital Course Reason for hospitalization: Israel Plascencia is a 66-year-old male with a history of CAD, COPD, chronic back pain on narcotics, hypertension, hyperlipidemia, atrial fibrillation, MABEL on CPAP who is seen in follow-up for acute hypercapnic respiratory failure.? Please see HPI for further details. Hospital Course: Please see above for details of hospital course. Time spent discussing smoking cessation with patient: more than 10 minutes Status at Discharge Cognitive/behavioral status a
[2022-05-15] MEDS: ACETAMINOPHEN 325 MG TABLET 650 MG PO (12:32)
== END 2022-05-15 13:45 | disposition home or self-care (01) | DRG 189 ==
LOC: ANHED 10:08 → ANHIMU 17:07 → ANH2MED 05-12 16:00
PROVIDERS: Nurse Practitioner Adult Health; Physician Assistant; Admitting Provider Internal Medicine; Emergency Provider Emergency Medicine; PCP Family Medicine; Visit Provider Physician Assistant
DX: J96.22 Acute and chronic respiratory failure with hypercapnia (principal); J44.1 Chronic obstructive pulmonary disease with (acute) exacerbation; B37.0 Candidal stomatitis; F41.8 Other specified anxiety disorders; I25.10 Atherosclerotic heart disease of native coronary artery without angina pectoris; Z86.14 Personal history of Methicillin resistant Staphylococcus aureus infection; I10 Essential (primary) hypertension; Z87.11 Personal history of peptic ulcer disease; E78.5 Hyperlipidemia, unspecified; M85.80 Other specified disorders of bone density and structure, unspecified site; F17.210 Nicotine dependence, cigarettes, uncomplicated; L40.50 Arthropathic psoriasis, unspecified; T78.3XXA Angioneurotic edema, initial encounter; T46.4X5A Adverse effect of angiotensin-converting-enzyme inhibitors, initial encounter; Z95.5 Presence of coronary angioplasty implant and graft; F11.90 Opioid use, unspecified, uncomplicated; G89.29 Other chronic pain; M47.9 Spondylosis, unspecified; I48.0 Paroxysmal atrial fibrillation; M62.838 Other muscle spasm; F31.9 Bipolar disorder, unspecified; Z80.9 Family history of malignant neoplasm, unspecified; G47.33 Obstructive sleep apnea (adult) (pediatric); Z79.899 Other long term (current) drug therapy; Z79.82 Long term (current) use of aspirin; Z79.52 Long term (current) use of systemic steroids
CPT/HCPCS: 36415; 36600; 70551; 71045; 80048; 80053; 82375; 82607; 82805; 83050; 83735; 84443; 85025; 85027; 85610; 85730; 94002; 94003; 94618; 94640; 94660; 96372; 96374; 96375; 96376; 99291; A9270; G0378; J0171; J0456; J1200; J1650; J2270; J2930; J7512

== ENCOUNTER 2022-05-25 05:21 | Inpatient (IN) | payer BC, MEDICARE, SELFPAY ==
[2022-05-25] VITALS (23 sets, daily range): BP systolic 111–155; BP diastolic 76–128; PULSE 98–118; RESP 14–26; TEMP 36.1–37.3; O2SAT 93–100; BMI 25.9
--- NOTE | ~2022-05-25 | CT_ITS ---
EXAMINATION: CT brain wo con DATE: 05/25/2022 06:40 INDICATION: Head injury. Confusion. TECHNIQUE: Computed tomography (CT) of the head was performed without intravenous contrast. The mA wa s adjusted according to patient size. Iterative reconstruction technique was employed. The dose-lengt h product was 681.00 mGy-cm. COMPARISON: Head CT 12/07/2012 FINDINGS: There is mild motion artifact. There is no intracranial hemorrhage, acute infarction, or ab normal intracranial mass lesion. The ventricles are normal in size. Beam hardening artifact from the skull and motion artifact obscure anterior right frontal lobe. There is mild mucosal thickening in th e ethmoid sinuses. There is right periorbital soft tissue swelling. There are no pathologically enlar ged lymph nodes. The mastoid air cells are normal. IMPRESSION: 1. No acute intracranial pathology. Reviewed, dictated and finalized at location A.
--- NOTE | ~2022-05-25 | XR_ITS ---
EXAMINATION: XR chest 1V DATE: 05/25/2022 06:49 INDICATION: Shortness of breath. TECHNIQUE: A single frontal view of the chest was obtained on 2 radiographs. COMPARISON: Chest single view 05/09/2022, chest CT 01/28/2021 FINDINGS: There is chronic marked in elevation of right hemidiaphragm. There is mild atelectasis at t he lung bases. No pleural effusion or pneumothorax. The heart size is normal. IMPRESSION: 1. Chronic marked elevation of right hemidiaphragm. 2. Mild atelectasis at the lung bases. Reviewed, dictated and finalized at location A.
--- NOTE | ~2022-05-25 | CT_ITS ---
EXAMINATION: CT facial bones wo con DATE: 05/25/2022 06:40 INDICATION: Right periorbital injury. TECHNIQUE: Computed tomography (CT) of the facial bones and maxillofacial region was performed withou t intravenous contrast. Automated exposure control and iterative reconstruction technique were employ ed. The dose-length product was 505.78 mGy-cm. COMPARISON: Maxillofacial CT 12/07/2012 FINDINGS: There is right periorbital soft tissue swelling. The orbits are normal. Bone alignment is n ormal. No fracture. There is mild mucosal thickening in the ethmoid sinuses. There is severe cervical spondylosis. IMPRESSION: 1. No fracture. Reviewed, dictated and finalized at location A. IMPRESSION: 1. No fracture.
--- NOTE | 2022-05-25 05:26 | ECG_ITS ---
Measurements Intervals [place] Rate: 102 P: 76 PA: 157 QRS: -7 QRSD: 86 T: 43 QT: 324 QTc: 423 Interpretive Statements SINUS TACHYCARDIA BORDERLINE R WAVE PROGRESSION, ANTERIOR LEADS CONSIDER INFERIOR INFARCT, AGE INDETERMINATE BASELINE ARTIFACT- I, II, III, AVL, AVF, V1-V2, V4-V6 ABNORMAL ECG Electronically Signed On 05-25-2022 13:50:26 CDT by Jeronimo Snow D.O.
[2022-05-25] MEDS: ALBUTEROL SULFATE NEB 2.5 MG/3 ML INH 5 MG INHALATION ×4 (05:48→20:14)
[2022-05-25] MEDS: IPRATROPIUM BR 0.02% INH SOLN 0.5 MG/2.5 ML VIAL INHALATION ×4 (05:48→20:14)
[2022-05-25 06:04] LABS: Basophils Percent Auto 0.2 % (0.2-1.2); Eosinophils Absolute Auto 0.3 K/mm3 (0-0.3); Eosinophils Percent Auto 2.1 % (0-4.4); Hematocrit 40.9 % (42.0-52.0); Hemoglobin 11.9 g/dL (14.0-18.0); Immature Granulocyte Absolute 0.12 K/mm3 (0.00-0.031); Immature Granulocyte Percent A 0.9 % (0-0.5); Lymphocytes Absolute Auto 2.13 K/mm3 (0.9-3.2); Lymphocytes Percent Auto 16.6 % (18.3-44.2); Mean Corpuscular HGB Conc 29.1 g/dl (32-36); Mean Corpuscular Hemoglobin 28.5 pg (26-34); Mean Corpuscular Volume 97.8 fl (80-100); Mean Platelet Volume 9.5 fl (7.4-10.4); Monocytes Absolute Auto 1.7 K/mm3 (0.1-0.6); Monocytes Percent Auto 12.9 % (2.6-8.5); Neutrophils Absolute Auto 8.6 K/mm3 (1.3-6.7); Neutrophils Percent Auto 67.3 % (45.5-73.1); Platelet Count Result 308 k/mm3 (150-375); Red Blood Count 4.18 M/mm3 (4.6-6.20); Red Cell Distribution Width 15.9 % (11.5-14.5); White Blood Count 12.8 K/mm3 (4.5-10.0)
[2022-05-25 06:19] LABS: Anisocytosis 1+ (NORMAL); Blood Urea Nitrogen 21 mg/dL (9-20); Calcium 8.1 mg/dL (8.4-10.2); Carbon Dioxide > 40 mmol/L (22-30); Chloride 97 mmol/L (98-107); Estimated CRCL calculation 79 ml/min; Estimated Glomerular Filt Rate > 60; Glucose 109 mg/dL (65-110); Platelet Estimate Adequate (Adequate); Potassium 4.5 mmol/L (3.4-5.0); Prothrombin Time 12.9 Seconds (11.1-14.7); Sodium 136 mmol/L (137-145); Stomatocytes 1+ (NORMAL)
[2022-05-25 06:20] LABS: Partial Thromboplastin Time 23.5 SECONDS (22.3-36.8)
--- NOTE | 2022-05-25 06:26 | ED.FALL ---
HPI - Fall General Chief Complaint: Fall <Jm Turner MD - Last Filed: 05/25/22 06:29> Stated Complaint: FALL, HEAD LAC, LOW O2 <Jm Turner MD - Last Filed: 05/25/22 06:29> Time Seen by Provider: 05/25/22 07:24 <Jm Turner MD - Last Filed: 05/25/22 06:29> History of Present Illness HPI Narrative: Patient is a 66-year-old male who presents ER status post fall at home. Patient was getting up when he fell and struck a bedside table. He struck her with his face. No loss consciousness. Patient hypoxic upon EMS arrival and while wearing his home O2. Patient is awake alert and oriented but a poor historian. Patient recently hospitalized for LEIGHTON inhibitor angioedema and also hypercapnic respiratory failure. At this time patient has significant swelling around his eye and subconjunctival hemorrhage from the fall. He denies change in vision. He is not complaining of any additional pain. <Jm Turner MD - Last Filed: 05/25/22 06:29> Related Data Home Medications: Home Medications Medication Instructions Recorded Confirmed aspirin 81 mg tablet,delayed 81 mg PO DAILY 10/17/19 05/09/22 release (Adult Aspirin Regimen) atorvastatin 20 mg tablet 20 mg PO DAILY 10/17/19 05/09/22 oxycodone-acetaminophen 10 mg-325 1 tablet PO Q8H PRN Pain (Scale 10/17/19 05/09/22 mg tablet (Percocet) Score 4-6) fluticasone fur. 100 mcg-umeclid 1 inh inhalation DAILY 08/29/20 05/09/22 62.5 mcg-vilant 25 mcg inhalat.powder (Trelegy Ellipta) albuterol sulfate 90 mcg/actuation 90 mcg inhalation TID PRN 01/28/21 05/09/22 aerosol inhaler Shortness Of Breath aripiprazole 2 mg tablet 2 mg PO DAILY 01/28/21 05/09/22 folic acid 1 mg tablet 3 mg PO DAILY 01/28/21 05/09/22 venlafaxine 150 mg 225 mg PO DAILY 01/28/21 05/09/22 capsule,extended release 24 hr acetaminophen 300 mg-codeine 60 mg 1 tablet PO DAILY 05/09/22 05/09/22 tablet carvedilol 25 mg tablet (Coreg) 25 mg PO BID 05/09/22 05/09/22 ipratropium 0.5 mg-albuterol 3 mg 3 ml inhalation TID PRN Shortness 05/09/22 05/09/22 (2.5 mg base)/3 mL nebulization Of Breath soln sulfasalazine 500 mg tablet 1 tablet PO BID 05/09/22 05/09/22 cyclobenzaprine 5 mg tablet 5 mg PO HS PRN Pain 05/25/22 05/25/22 <Jm Turner MD - Last Filed: 05/25/22 06:29> Allergies/Adverse Reactions: Allergies Allergy/AdvReac Type Severity Reaction Status Date / Time vancomycin Allergy Unknown Flushing Verified 05/25/22 05:33 <Jm Turner MD - Last Filed: 05/25/22 06:29> Review of Systems Review of Systems: All systems reviewed & are unremarkable except as noted in HPI and below <Jm Turner MD - Last Filed: 05/25/22 06:29> Constitutional: Constitutional: Denies chills and Denies fever(s) <Jm Turner MD - Last Filed: 05/25/22 06:29> Eyes: Eyes: Denies change in vision and Denies photophobia <Jm Turner MD - Last Filed: 05/25/22 06:29> Comments: Pain right periorbital region <Jm Turner MD - Last Filed: 05/25/22 06:29> Respiratory: Respiratory: Denies cough, Denies dyspnea and Reports wheezing <Jm Turner MD - Last Filed: 05/25/22 06:29> Neurologic: Denies syncope, Denies headache(s), Denies focal weakness and Denies numbness <Jm Turner MD - Last Filed: 05/25/22 06:29> PMFSH Past Medical History Medical History: Medical History (Updated 05/25/22 @ 07:39 by Aaron Acharya MD) Adenomatous colon polyp Anxiety and depression Atrial fibrillation Bipolar 1 disorder CAD (coronary artery disease) 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 Repeat evaluation and was in 2017. Chronic back pain Chronic, continuous use of opioids Constipation due to opioid therapy COPD (chronic obstructive pulmonary disease) Depression History of MRSA infection History of stomach ulcers History of suicide attempt multiple times HTN (hypertension) Hyperlipidemia Ileus
[2022-05-25] MEDS: TETRACAINE HCL 0.5% OPHTH SOLN 4 ML BTL 1 DROP EACH EYE (06:50)
[2022-05-25] MEDS: FLUORESCEIN SOD 1 MG/STRIP EACH EYE (06:50)
[2022-05-25 06:53] LABS: Base Excess ABG 6.6 mEq/l (+/-2.0); Carboxyhemoglobin 5.3 % THb (0-2.0); Fractional Inspired Oxygen 36 %; HCO3 ABG 38.2 mEq/l (22.0-26.0); Methemoglobin ABG 0.1 %THb (0-1.5); Oxygen Content ABG 16.1 %vol (16.0-22.0); Oxygen Saturation ABG 93.4 % (95.0-100.0); Oxyhemoglobin 89.1 % THb (90.0-100.0); PO2 ABG 85.8 mmHg (80.0-100.0); PO2 FiO2 Ratio Arterial Blood 2.38 %; Reduced Hemoglobin 5.5 %THb (0-5.0); Total Hemoglobin 12.8 g/dL (12.0-18.0)
[2022-05-25 06:54] LABS: Device NASAL CANNULA; Modified Allen's Test Pass; PCO2 ABG 100.8 mmHg (35.0-45.0); Site Drawn RIGHT RADIAL; pH ABG 7.196 (7.350-7.450)
[2022-05-25 08:41] LABS: SARS-CoV-2 RNA PCR Negative
--- NOTE | 2022-05-25 11:55 | PM.IMHP ---
H&P: HPI History of Present Illness Date/Time: 05/25/22 11:55 Chief Complaint: Patient is a 66-year-old male who presents ER status post fall at home.? Patient was getting up when he fell and struck a bedside table.? He struck her with his face.? No loss consciousness.? Patient hypoxic upon EMS arrival and while wearing his home O2.? Patient is awake alert and oriented but a poor historian.? Patient recently hospitalized for LEIGHTON inhibitor angioedema and also hypercapnic respiratory failure.? At this time patient has significant swelling around his eye and subconjunctival hemorrhage from the fall.? He denies change in vision.? He is not complaining of any additional pain When I saw the patient he was sleeping and arousable but not easily arousable. He was on BiPAP. Review of Systems Review of Systems: 10 point ROS negative except as stated in HPI / Subjective PMFSH Past Medical History Medical History (Updated 05/25/22 @ 12:03 by Carlos Espino MD) Adenomatous colon polyp Anxiety and depression Atrial fibrillation Bipolar 1 disorder CAD (coronary artery disease) 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 Repeat evaluation and was in 2017. Chronic back pain Chronic, continuous use of opioids Constipation due to opioid therapy COPD (chronic obstructive pulmonary disease) Depression History of MRSA infection History of stomach ulcers History of suicide attempt multiple times HTN (hypertension) Hyperlipidemia Ileus MRSA infection Osteopenia determined by x-ray Psoriatic arthritis Tobacco abuse Surgical History Surgical History H/O heart artery stent 1 stent 2004 with a repeat catheterization in 2006 no intervention was done at that time H/O toe surgery hammertoe repair History of ankle surgery left heel repaired History of appendectomy 1986 History of hip replacement Hx of rhinoplasty Family History Family History Father COPD (chronic obstructive pulmonary disease) Mother Cancer Social History Social History Social History: He lives in [place] with his of 16 years. He continues to smoke and is down to a pack a cigarettes a day. He has multiple dogs and cats. He has 6 adopted children. 3 from this marriage in 3 from a previous marriage. No biological children. 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 But has not had anything to drink in last month. Primary care physician: Dr. Yogi Soriano Code status: Full code Healthcare power of associate attorney: Smoking packs per day: 1 Smoking cigarettes per day: 20.0 Years smoked: 45 Smoking pack-years: 45.00 Smoking status: Current every day smoker Tobacco type: cigarettes Second hand tobacco smoke exposure: Yes Additional smoking assessment comments: trying to quit Alcohol intake: never Drinks per week: 2 Substance use: never Substance use type: does not use Other substance usage details: Prescription opiates Gender identity (if verbalized by the patient): Male Spiritual care concerns: No Meds Home Medications and Allergies Home Medications Medication Instructions Recorded Confirmed Type aspirin 81 mg tablet,delayed 81 mg PO DAILY 10/17/19 05/09/22 History release (Adult Aspirin Regimen) atorvastatin 20 mg tablet 20 mg PO DAILY 10/17/19 05/09/22 History oxycodone-acetaminophen 10 mg-325 1 tablet PO Q8H PRN Pain (Scale 10/17/19 05/09/22 History mg tablet (Percocet) Score 4-6) fluticasone fur. 100 mcg-umeclid 1 inh inhalation DAILY 08/29/20 05/09/22 History 62.5 mcg-vilant 25 mcg inhalat.powder (Trelegy Ellipta) albuterol sulfate 90 mcg/actuation 90 mcg inhalation TID
--- NOTE | 2022-05-25 14:31 | PC.NURSE ---
This patient, Israel Plascencia Sr., was admitted to Intensive Care Unit-10. Patient/family oriented to hospital policies and general routines including ID bracelet, bed and alarms, visiting hours, pain management, procedures, bathroom and other care routines, personal items, smoking policy, room service/diet, and visiting hours. Information on how to activate the Rapid Response Team has been discussed. Patient/Family are encouraged to report perceived risks to care and to ask questions if they do not understand what they are told or what they should do.
[2022-05-25 16:22] LABS: Alveolar/Arterial O2 Gradient 113.3 mmHg; Base Excess ABG 11.6 mEq/l (+/-2.0); Fractional Inspired Oxygen 40 %; HCO3 ABG 39.5 mEq/l (22.0-26.0); Oxygen Content ABG 16.4 %vol (16.0-22.0); Oxygen Saturation ABG 96.7 % (95.0-100.0); Oxyhemoglobin 94.2 % THb (90.0-100.0); PO2 ABG 92.9 mmHg (80.0-100.0); PO2 FiO2 Ratio Arterial Blood 2.32 %; Total Hemoglobin 12.3 g/dL (12.0-18.0); pH ABG 7.377 (7.350-7.450)
[2022-05-25 16:23] LABS: Device BIPAP; Modified Allen's Test Pass; Site Drawn RIGHT RADIAL
[2022-05-25 16:25] LABS: PCO2 ABG 68.7 mmHg (35.0-45.0)
[2022-05-25 16:26] LABS: Expiratory Pressure 8 cmH2O; Inspiratory Pressure 16 cmH2O
[2022-05-26] VITALS (33 sets, daily range): BP systolic 102–145; BP diastolic 62–89; PULSE 91–156; RESP 18–29; TEMP 36.4–37.2; O2SAT 83–100
[2022-05-26] MEDS: IPRATROPIUM BR 0.02% INH SOLN 0.5 MG/2.5 ML VIAL INHALATION ×4 (02:21→20:01)
[2022-05-26] MEDS: ALBUTEROL SULFATE NEB 2.5 MG/3 ML INH 5 MG INHALATION ×4 (02:21→20:01)
[2022-05-26 05:09] LABS: Alveolar/Arterial O2 Gradient 95.1 mmHg; Fractional Inspired Oxygen 35 %; HCO3 ABG 34.7 mEq/l (22.0-26.0); Oxygen Content ABG 16.3 %vol (16.0-22.0); Oxygen Saturation ABG 96.3 % (95.0-100.0); Oxyhemoglobin 94.4 % THb (90.0-100.0); PCO2 ABG 58.2 mmHg (35.0-45.0); PO2 ABG 86.8 mmHg (80.0-100.0); PO2 FiO2 Ratio Arterial Blood 2.48 %; Total Hemoglobin 12.2 g/dL (12.0-18.0); pH ABG 7.393 (7.350-7.450)
[2022-05-26 05:10] LABS: Device NON-INVASIVE VENT; Modified Allen's Test Pass; Site Drawn LEFT RADIAL
[2022-05-26 05:11] LABS: Non-Invasive Expiratory Pressure 8 CMH2O; Non-Invasive Inspiratory Pressure 16 CMH2O; Non-Invasive Vent Rate 20 /MIN
[2022-05-26 05:33] LABS: Hematocrit 37.9 % (42.0-52.0); Hemoglobin 11.1 g/dL (14.0-18.0); Mean Corpuscular HGB Conc 29.3 g/dl (32-36); Mean Corpuscular Hemoglobin 27.8 pg (26-34); Mean Platelet Volume 9.9 fl (7.4-10.4); Platelet Count Result 242 k/mm3 (150-375); Red Blood Count 3.99 M/mm3 (4.6-6.20); Red Cell Distribution Width 16.2 % (11.5-14.5); White Blood Count 14.2 K/mm3 (4.5-10.0)
[2022-05-26 06:08] LABS: Blood Urea Nitrogen 17 mg/dL (9-20); Calcium 8.1 mg/dL (8.4-10.2); Carbon Dioxide > 40 mmol/L (22-30); Chloride 92 mmol/L (98-107); Estimated CRCL calculation 75 ml/min; Estimated Glomerular Filt Rate > 60; Glucose 58 mg/dL (65-110); Potassium 3.9 mmol/L (3.4-5.0); Sodium 132 mmol/L (137-145)
[2022-05-26] MEDS: DEXTROSE 50% 25 GM/50 ML SYRINGE IV PUSH (06:18)
[2022-05-26] MEDS: methylPREDNISolone SOD SUCC 125 MG VIAL 60 MG IV PUSH (08:36)
[2022-05-26] MEDS: METOPROLOL TARTRATE INJ 5 MG/5 ML VIAL IV PUSH (08:39)
[2022-05-26 08:42] LABS: Glucose Point of Care 135 mg/dl (65-105)
[2022-05-26] MEDS: dilTIAZem 100 MG/100 ML 100 MG/100 ML BAG IV CONT (10:22)
[2022-05-26 10:37] LABS: Partial Thromboplastin Time 21.4 SECONDS (22.3-36.8); Prothrombin Time 12.9 Seconds (11.1-14.7)
[2022-05-26] MEDS: HEPARIN SOD/D5W 100 UNITS/ML 25,000 UNITS/250 ML BAG 9 UNITS IV CONT (10:50)
--- NOTE | 2022-05-26 11:54 | PM.IMPN ---
Progress Note: A&P Assessment and Plan (1) Acute and chronic respiratory failure with hypercapnia: Code(s): J96.22 - Acute and chronic respiratory failure with hypercapnia Status: Acute Assessment and Plan: Likely secondary to underlying COPD. Continue BiPAP and monitor ABGs. Respiratory therapy has been consulted for nebulizers. ABGs are improving and mental status is improving. IV Solu-Medrol. Pulmonary consult (2) Tobacco abuse: Code(s): Z72.0 - Tobacco use Status: Acute Assessment and Plan: History of. (3) COPD exacerbation: Code(s): J44.1 - Chronic obstructive pulmonary disease with (acute) exacerbation Status: Acute Assessment and Plan: No need for antibiotics. Continue nebulizers and steroids. BiPAP as well. (4) Bipolar disorder: Code(s): F31.9 - Bipolar disorder, unspecified Status: Acute Assessment and Plan: Chronic and stable. (5) Anxiety and depression: Code(s): F41.9 - Anxiety disorder, unspecified; F32.9 - Major depressive disorder, single episode, unspecified Status: Chronic Assessment and Plan: Monitor (6) Chronic back pain: Code(s): M54.9 - Dorsalgia, unspecified; G89.29 - Other chronic pain Status: Acute Assessment and Plan: Chronic. (7) Paroxysmal atrial fibrillation: Code(s): I48.0 - Paroxysmal atrial fibrillation Status: Acute Assessment and Plan: No anticoagulation secondary to fall risk. Cardizem drip currently has his rates are high because he has been off his oral medications since he has not been taking oral. Will try to resume oral medications and get off Cardizem drip. Cardiology consult. Subjective Date/time seen: 05/26/22 11:54 AFib this morning. Rates 140s to 290s. Patient is more alert and able to wake up. ABG is improved. Exam Narrative: General: alert and oriented Psych: appropriate mood nad affect Eyes: PERRLA Neck: Trachea midline, no new lesions Skin: no changes Lungs: Wheeze heard bilaterally Cardiac: Normal S1,S2, no MGR ABD: soft, nd, nt, nbs Ext: no new lesions, no cce Vasc: Pulses intact Objective Data Vital Signs Vital Signs: Vital Signs - 24 hr 05/25/22 12:00 05/25/22 14:48 05/25/22 14:49 Temperature Pulse Rate 98 110 H Respiratory Rate 18 17 Blood Pressure 120/85 Pulse Oximetry 96 Oxygen Delivery BiPAP Fraction of Inspired Oxygen 05/25/22 14:45 05/25/22 16:00 05/25/22 16:00 Temperature 97.0 F L Pulse Rate 110 H 107 H 108 H Respiratory Rate 18 25 H Blood Pressure 141/99 H 123/81 Pulse Oximetry 95 98 Oxygen Delivery Fraction of Inspired Oxygen 05/25/22 16:00 05/25/22 18:00 05/25/22 20:17 Temperature Pulse Rate 113 H 108 H Respiratory Rate 22 H Blood Pressure Pulse Oximetry 98 Oxygen Delivery BiPAP Fraction of Inspired Oxygen 40 05/25/22 20:18 05/25/22 20:00 05/25/22 20:00 Temperature Pulse Rate 110 H 110 H Respiratory Rate 25 H Blood Pressure Pulse Oximetry 93 94 Oxygen Delivery BiPAP BiPAP Fraction of Inspired Oxygen 40 40 05/25/22 20:00 05/25/22 22:00 05/25/22 22:00 Temperature 99.1 F Pulse Rate 110 H 103 H 107 H Respiratory Rate 25 H 19 Blood Pressure 127/85 Pulse Oximetry 94 97 Oxygen Delivery BiPAP Fraction of Inspired Oxygen 05/26/22 00:00 05/26/22 00:00 05/26/22 00:00 Temperature 99 F Pulse Rate 108 H 108 H 108 H Respiratory Rate 25 H 25 H Blood Pressure 129/86 Pulse Oximetry 97 97 Oxygen Delivery BiPAP Fraction of Inspired Oxygen 40 05/26/22 02:00 05/26/22 01:00 05/26/22 02:25 Temperature Pulse Rate 109 H 107 H 109 H Respiratory Rate 18 22 H Blood Pressure Pulse Oximetry 97 Oxygen Delivery BiPAP Fraction of Inspired Oxygen 05/25/22 20:33 05/26/22 04:00 05/26/22 04:00 Temperature Pulse Rate 111 H 104 H 104 H Respiratory Rate 22 H 24 H Blood Pressure
[2022-05-26 12:57] LABS: Glucose Point of Care 101 mg/dl (65-105)
--- NOTE | 2022-05-26 12:58 | PM.CNCAR ---
Assessment and Plan Assessment and plan (1) Paroxysmal atrial fibrillation: Code(s): I48.0 - Paroxysmal atrial fibrillation Status: Acute Assessment and Plan: Patient admits a history of paroxysmal atrial fibrillation not on systemic anticoagulation as an outpatient. Due to patient's frequent and reported falls he would be a poor candidate for systemic anticoagulation due to risk of potential catastrophic bleeding and intracerebral hemorrhage. Continue aspirin 81 mg daily for now. Heart rate control strategy at this time. I would discontinue heparin infusion given recent facial trauma extensive ecchymosis/bruising to reduce bleeding complications in this regard and that he apparently has not been deemed an anticoagulation candidate previously. Need to review prior cardiovascular records for further confirmation in this regard. Increase diltiazem infusion, when able to take p.o. reliable resume oral beta-bi therapy. 2D Echo to assess LV size/function, valve pathology pulmonary pressures with heart rate better controlled. Recommendation to follow. Patient would not be a very good candidate for cardioversion as he is apparently not been deemed an anticoagulation candidate as an outpatient and particular given admission with head trauma would prefer to avoid systemic anticoagulation if possible. Nonetheless, will need to monitor patient closely with regards to tolerance and effectiveness with rate control strategy at this time. (2) Acute respiratory failure with hypoxia: Code(s): J96.01 - Acute respiratory failure with hypoxia Status: Acute Assessment and Plan: Management per primary service. Bronchodilator therapy, BiPAP. O2 supplementation. Steroids wean as tolerated. (3) CAD (coronary artery disease): Code(s): I25.10 - Atherosclerotic heart disease of [place] coronary artery without angina pectoris Status: Chronic Assessment and Plan: Stable, no evidence for acute injury. Review prior cardiovascular records when available. Continue aspirin, statin, beta-bi. Avoid LEIGHTON-inhibitor due to angioedema. (4) COPD exacerbation: Code(s): J44.1 - Chronic obstructive pulmonary disease with (acute) exacerbation Status: Acute Assessment and Plan: As above, smoking cessation. (5) Hyperlipidemia: Code(s): E78.5 - Hyperlipidemia, unspecified Status: Chronic Assessment and Plan: Continue statin therapy goal LDL less than 70. (6) HTN (hypertension): Code(s): I10 - Essential (primary) hypertension Status: Chronic Assessment and Plan: Controlled, no acute issues in this regard. (7) Tobacco abuse: Code(s): Z72.0 - Tobacco use Status: Acute Assessment and Plan: Immediate and absolute smoking cessation. History of Present Illness History of Present Illness Consult date/time: Date of service: 05/26/22 12:58 Cardiology consultation at the request of Dr. Espino for opinion regarding atrial fibrillation with rapid ventricular response. Requesting physician: Carlos Espino MD Consult reason: atrial fibrillation Reason For Visit: acute respiratory failure on top of chroic with hy Narrative: Patient is a 66-year-old male with a past medical history significant for CAD with previously placed stents followed by Dr. Jacobo at [facility], paroxysmal atrial fibrillation not on systemic anticoagulation, history of frequent/recurrent falls, hypertension, mixed hyperlipidemia, MABEL on CPAP, COPD and tobacco abuse who was recently admitted for LEIGHTON-inhibitor induced angioedema and discharged 05/15/2022. Patient presents the ER after suffering a fall where he fell and struck bedside bedside table striking the right side of his face. There is no associated a reported loss of consciousness. EMS was summoned upon their arrival he was noted to be hypoxic on his home oxygen. Patient was placed on BiPAP. Patient has been repor
[2022-05-26] MEDS: oxyCODONE/ACETAMINOPHEN (*CRX) 10-325 MG TABLET 1 TAB PO (15:42)
--- NOTE | 2022-05-26 16:07 | PM.CNPUL ---
Assessment and Plan Assessment and plan (1) Acute and chronic respiratory failure with hypercapnia: Code(s): J96.22 - Acute and chronic respiratory failure with hypercapnia Status: Acute Assessment and Plan: He has COPD, elevated left hemidiaphragm with decreased FRC, smoking;, was recently here with angioedema due to LEIGHTON-inhibitor; now here with acute worsening of his hypercapnic hypoxemic respiratory failure which pushed his heart into rapid atrial fibrillation. He says that he increased his O2 at home, and this may have contributed to some of the CO2 retention He would benefit from AVAPS-AE settings and having this set up at home, as he has severe CO2 retention. I called, left message with his to supply name of his [employer], and we will get records from Dr Sears re: sleep issues and COPD. Dr Sears may be able to provide information about his outpatient treatment. The patient is still not normal mentally due to fall, wihtout LOC, and high CO2. (2) Tobacco abuse: Code(s): Z72.0 - Tobacco use Status: Acute Assessment and Plan: smoking 1 ppd x 45 years; not compatible with his current co-morbidities COPD and AFibRVR, falls strongly encourage tobacco cessation (3) COPD (chronic obstructive pulmonary disease): Code(s): J44.9 - Chronic obstructive pulmonary disease, unspecified Status: Chronic Assessment and Plan: Has COPD, uses Trelegy and albuterol inhaler and nebulizer; still smokes (4) Obstructive sleep apnea: Code(s): G47.33 - Obstructive sleep apnea (adult) (pediatric) Status: Acute Assessment and Plan: Uses CPAP at home, unknown settings, and unknown amount of O2 History of Present Illness History of Present Illness Consult date: 05/26/22 Requesting physician: Carlos Espino MD Chief complaint: acute and chronic respiratory failure Narrative: pt seen May 26, 2022 at 15:55 NEW CONSULT: Israel Plascencia is 66 yo, sees Dr Sears and other doctors at [facility]. He was here at the end of April with angioedema from an LEIGHTON-inhibitor. He fell at home, smashed his Right eye, had a pCO2 over 100 and his saturaiton was low when EMS found him. He was in NSR, then developed AFRsRVR 160s. On a diltiazem drip. This atrial fibrillation is not new. He is not anticoagulated because he falls often. On admission, he wore BiPAP with improvement in his CO2 retention. He is more alert. His told the nurse in the ICU that he gets confused when his CO2 is high. The patient says that he turned his O2 up at home. His usual O2 flow is 2 L/min, and he had it at 3 L/min or higher. He uses CPAP at home. COPD: uses Trelegy 100 one puff a day and albuterol inhaler 1-2 times a day and albuterol in nebulizer 1-2 times a day. PMH: CAD with stents, sees Dr Jacobo at [facility], PAF, falls, lipids, obstructive sleep apnea on CPAP with unknown settings, COPD on O2 2 L/min at home; HTN, and he smokes. Review of Systems Review of Systems: All systems reviewed & are unremarkable except as noted in HPI and below PMFSH Past Medical History Medical History (Updated 05/26/22 @ 16:28 by Marilou Pruitt MD) Adenomatous colon polyp Anxiety and depression Atrial fibrillation Bipolar 1 disorder CAD (coronary artery disease) 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 Repeat evaluation and was in 2017. Chronic back pain Chronic, continuous use of opioids Constipation due to opioid therapy COPD (chronic obstructive pulmonary disease) Depression History of MRSA infection History of stomach ulcers History of suicide attempt multiple times HTN (hypertension) Hyperlip
[2022-05-26] MEDS: dilTIAZem 100 MG/100 ML 100 MG/100 ML BAG 15 MG IV CONT (18:24)
[2022-05-26] MEDS: carvediloL 25 MG TABLET PO (21:00)
[2022-05-26 21:42] LABS: Alveolar/Arterial O2 Gradient 119.2 mmHg; Device NON-INVASIVE VENT; Fractional Inspired Oxygen 35 %; HCO3 ABG 31.8 mEq/l (22.0-26.0); Modified Allen's Test Pass; Non-Invasive Expiratory Pressure 8 CMH2O; Non-Invasive Inspiratory Pressure 16 CMH2O; Non-Invasive Vent Rate 20 /MIN; Oxygen Content ABG 16.2 %vol (16.0-22.0); Oxygen Saturation ABG 94.1 % (95.0-100.0); Oxyhemoglobin 92.6 % THb (90.0-100.0); PCO2 ABG 51.4 mmHg (35.0-45.0); PO2 ABG 70.6 mmHg (80.0-100.0); PO2 FiO2 Ratio Arterial Blood 2.02 %; Site Drawn RIGHT RADIAL; Total Hemoglobin 12.4 g/dL (12.0-18.0)
[2022-05-27] VITALS (28 sets, daily range): BP systolic 85–134; BP diastolic 60–80; PULSE 66–103; RESP 12–24; TEMP 36.6–37.2; O2SAT 96–100
--- NOTE | 2022-05-27 | ECHO_ITS ---
Patient Info Name: Israel Plascencia Age: 66 years : 1955 Gender: Male Ht: 68 in Wt: 113 lbs BSA: 1.55 m2 HR: 79 bpm BP: 96 / 62 mmHg Heart Rhythm: Sinus Rhythm Exam Date: 05/27/2022 8:54 AM Exam Location: [facility] Pulmonary Patient Status: Inpatient Admit Date: 05/25/2022 Staff Ordering Physician: Carlos Espino MD Outcomes Manager: Ambrosio Brooks RDCS, RT Attending Provider: Carlos Espino MD Referring Physician: Srinivas JERRY; Exam Type: CA echo doppler color flow Study Info Indications I48.0 - Paroxysmal atrial fibrillation Complete two-dimensional, color flow and Doppler transthoracic echocardiogram is performed. Strain analysis performed. Summary 1. Complete two-dimensional, color flow and Doppler transthoracic echocardiogram is performed. 2. Left ventricular chamber dimension is normal. 3. Left ventricular systolic function is mildly reduced, estimated at 45-50%. 4. The left ventricular diastolic function is grade I diastolic dysfunction. 5. Right ventricular chamber dimension is moderately enlarged. 6. The mitral valve annulus is mildly calcified. 7. There is mild aortic valve sclerosis. Left Ventricle Left ventricular chamber dimension is normal. Left ventricular systolic function is mildly reduced, estimated at 45-50%. There is mild concentric increased left ventricular wall thickness. The left ventricular diastolic function is grade I diastolic dysfunction. Right Ventricle Right ventricular chamber dimension is moderately enlarged. Left Atria Left atrial chamber dimension is normal. Right Atria Right atrial chamber dimension is mildly enlarged. Aortic Valve The aortic valve is trileaflet. There is mild aortic valve sclerosis. Pulmonic Valve The pulmonic valve is not well visualized. Mitral Valve The mitral valve has normal leaflets. The mitral valve annulus is mildly calcified. Tricuspid Valve The tricuspid valve leaflets are normal. Pericardium/Pleural The pericardium appears normal. Aorta The aortic root size at the sinus of Valsalva is normal. Left Ventricular Outflow Tract Name Value Normal LVOT 2D LVOT Diameter 2.1 cm LVOT Doppler LVOT Peak Gradient 3 mmHg LVOT Mean Gradient 2 mmHg LVOT VTI 16 cm LVOT VTI/AV VTI Ratio 0.7 LVOT Stroke Volume 54 ml LVOT CO 3.9 l/min LVOT CI 2.5 l/min/m2 Mitral Valve Name Value Normal MV Doppler MV Decel Good[place] 272 cm/s2 MV PHT 50 ms MV Area (PHT) 4.4 cm2 4.0-5.0 MV Diastolic Function
[2022-05-27] MEDS: dilTIAZem 100 MG/100 ML 100 MG/100 ML BAG 15 MG IV CONT (00:26)
[2022-05-27] MEDS: oxyCODONE/ACETAMINOPHEN (*CRX) 10-325 MG TABLET 1 TAB PO ×4 (00:59→20:22)
[2022-05-27] MEDS: ALBUTEROL SULFATE NEB 2.5 MG/3 ML INH 5 MG INHALATION ×4 (02:34→20:40)
[2022-05-27] MEDS: IPRATROPIUM BR 0.02% INH SOLN 0.5 MG/2.5 ML VIAL INHALATION ×4 (02:34→20:40)
--- NOTE | 2022-05-27 04:45 | PC.NURSE ---
Called Dr. Mohan and informed her that the patient converted to NSR at 0429 and I stopped the cardizem drip. She state that she is going to let cardilolgy decide what medications they would like to start him on since they are on the case.
[2022-05-27 06:59] LABS: Anion Gap 1 mmol/L (8-16); Blood Urea Nitrogen 24 mg/dL (9-20); Calcium 7.7 mg/dL (8.4-10.2); Carbon Dioxide 39 mmol/L (22-30); Chloride 91 mmol/L (98-107); Estimated CRCL calculation 87 ml/min; Estimated Glomerular Filt Rate > 60; Glucose 201 mg/dL (65-110); Potassium 4.5 mmol/L (3.4-5.0); Sodium 131 mmol/L (137-145)
[2022-05-27 07:47] LABS: Alveolar/Arterial O2 Gradient 86.9 mmHg; Base Excess ABG 6.7 mEq/l (+/-2.0); Fractional Inspired Oxygen 30 %; HCO3 ABG 32.7 mEq/l (22.0-26.0); Oxygen Saturation ABG 92.3 % (95.0-100.0); Oxyhemoglobin 90.7 % THb (90.0-100.0); PCO2 ABG 53.4 mmHg (35.0-45.0); PO2 ABG 64.3 mmHg (80.0-100.0); PO2 FiO2 Ratio Arterial Blood 2.14 %; Total Hemoglobin 11.7 g/dL (12.0-18.0); pH ABG 7.405 (7.350-7.450)
[2022-05-27 07:49] LABS: Device BIPAP; Modified Allen's Test Pass; Site Drawn RIGHT RADIAL
[2022-05-27 07:50] LABS: Expiratory Pressure 8 cmH2O; Inspiratory Pressure 16 cmH2O
[2022-05-27] MEDS: methylPREDNISolone SOD SUCC 125 MG VIAL 60 MG IV PUSH (08:56)
[2022-05-27] MEDS: FLUTICASONE/UMECLIDIN/VILANTER 100-62.5-25 MCG ELLIPTA 1 PUFF INHALATION (08:59)
[2022-05-27] MEDS: CYCLOBENZAPRINE HCL 5 MG TABLET PO ×2 (09:03→21:02)
[2022-05-27] MEDS: carvediloL 25 MG TABLET PO ×2 (09:08→21:04)
[2022-05-27] MEDS: ATORVASTATIN 20 MG TABLET PO (10:43)
[2022-05-27] MEDS: ARIPiprazole 2 MG TABLET PO (10:43)
[2022-05-27] MEDS: ASPIRIN 81 MG ENTERIC TABLET PO (10:43)
[2022-05-27] MEDS: FOLIC ACID 1 MG TABLET 3 MG PO (10:43)
[2022-05-27] MEDS: sulfaSALAzine 500 MG TABLET 1000 MG PO ×2 (10:43→17:36)
[2022-05-27] MEDS: VENLAFAXINE HCL XR 75 MG CAP.ER.24H 225 MG PO (10:43)
--- NOTE | 2022-05-27 11:47 | PM.PNCARD ---
Progress Note: A&P Assessment and Plan (1) Paroxysmal atrial fibrillation: Code(s): I48.0 - Paroxysmal atrial fibrillation Status: Acute Plan 66-year-old man with: Coronary artery disease with paroxysmal atrial fib. Episode of atrial fib on admission in the setting of respiratory insufficiency. He is back in sinus rhythm now and is more stable. No specific cardiac recommendations at this time we will not continue to round on him during this hospital stay or make appointment in my office since he has Cardiology follow-up established elsewhere. If cardiac issues arise that you need our assistance do not hesitate to call. Carlos Houston MD [facility] Subjective Date/time seen: Date of service:05/27/22 11:47 Interval history: Follow-up visit in this 66-year-old man with: Coronary artery disease and paroxysmal atrial fibrillation. Patient had AF with RVR on admission in the setting of severe respiratory insufficiency and marked CO2 retention. He is more stable now and back in sinus rhythm. As dictated in previous notes he is not a candidate for anticoagulation and has cardiac follow-up established elsewhere. He is seated in his bed in the ICU room 10. And is in no distress this afternoon Exam Const: General: comfortable and no acute distress Other: chronically ill-appearing white male no distress HENMT: Other: contusion about the right orbit Eyes: Sclera: sclerae normal Neck: Neck: supple and no JVD Resp: Other: diminished breath sounds in both lung conte prolonged expiratory phase, no pulmonary rales Cardio: Rate: regular rate Rhythm: regular rhythm GI: GI Palp: Yes Soft to palpation Auscultation: normal bowel sounds Skin: General skin exam: normal color Neuro: General: gait normal Extrem: General: normal to inspection Other: no edema Objective Data Vital Signs Vital Signs: Vital Signs - 24 hr 05/26/22 12:00 05/26/22 12:00 05/26/22 12:00 Temperature 37.1 C Pulse Rate 141 H 134 H Respiratory Rate 18 Blood Pressure 115/62 Pulse Oximetry 98 99 Oxygen Delivery BiPAP Oxygen Flow Rate Fraction of Inspired Oxygen 35 05/26/22 13:35 05/26/22 13:42 05/26/22 14:00 Temperature Pulse Rate 130 H 132 H 135 H Respiratory Rate 26 H 26 H Blood Pressure Pulse Oximetry Oxygen Delivery Oxygen Flow Rate Fraction of Inspired Oxygen 05/26/22 15:15 05/26/22 16:00 05/26/22 16:00 Temperature 36.8 C Pulse Rate 130 H 141 H 135 H Respiratory Rate 22 H Blood Pressure 114/64 102/81 Pulse Oximetry 91 Oxygen Delivery Oxygen Flow Rate Fraction of Inspired Oxygen 05/26/22 16:00 05/26/22 16:13 05/26/22 18:24 Temperature Pulse Rate 114 H Respiratory Rate Blood Pressure 122/89 Pulse Oximetry 91 98 Oxygen Delivery Nasal Cannula Nasal Cannula Oxygen Flow Rate 3 3 Fraction of Inspired Oxygen 05/26/22 18:24 05/26/22 18:00 05/26/22 20:04 Temperature Pulse Rate 114 H 110 H 103 H Respiratory Rate 29 H Blood Pressure 122/89 Pulse Oximetry 100 Oxygen Delivery BiPAP Oxygen Flow Rate Fraction of Inspired Oxygen 05/26/22 20:00 05/26/22 20:00 05/26/22 20:00 Temperature Pulse Rate 103 H 119 H 119 H Respiratory Rate 29 H 21 H Blood Pressure Pulse Oximetry 83 L Oxygen Delivery BiPAP Oxygen Flow Rate Fraction of Inspired Oxygen 35 05/26/22 20:00 05/26/22 22:00 05/26/22 21:00 Temperature 37.2 C Pulse Rate 119 H 104 H 100 Respiratory Rate 21 H Blood Pressure 123/89 Pulse Oximetry 83 L Oxygen Delivery Oxygen Flow Rate Fraction of Inspired Oxygen 05/26/22 23:00 05/27/22 00:26 05/27/22 00:26 Temperature Pulse Rate 101 H 93 93 Respiratory Rate 20 Blood Pressure 98/68 L 98/68 L Pulse Oximetry 100 Oxygen Delivery BiPAP Oxygen Flow Rate Fraction of Inspired Oxygen 05/27/22 00:00 05/27/22 00:00 05/27/22 00:00 Temperature
--- NOTE | 2022-05-27 12:08 | PM.IMPN ---
Progress Note: A&P Assessment and Plan (1) Acute and chronic respiratory failure with hypercapnia: Code(s): J96.22 - Acute and chronic respiratory failure with hypercapnia Status: Acute Assessment and Plan: Likely secondary to underlying COPD. Continue nebulizers. Continue IV Solu-Medrol. Appreciate Pulmonary input (2) Tobacco abuse: Code(s): Z72.0 - Tobacco use Status: Acute Assessment and Plan: History of. (3) COPD exacerbation: Code(s): J44.1 - Chronic obstructive pulmonary disease with (acute) exacerbation Status: Acute Assessment and Plan: No need for antibiotics. Continue nebulizers and steroids. BiPAP as well. (4) Bipolar disorder: Code(s): F31.9 - Bipolar disorder, unspecified Status: Acute Assessment and Plan: Chronic and stable. (5) Anxiety and depression: Code(s): F41.9 - Anxiety disorder, unspecified; F32.9 - Major depressive disorder, single episode, unspecified Status: Chronic Assessment and Plan: Monitor (6) Chronic back pain: Code(s): M54.9 - Dorsalgia, unspecified; G89.29 - Other chronic pain Status: Acute Assessment and Plan: Chronic. (7) Paroxysmal atrial fibrillation: Code(s): I48.0 - Paroxysmal atrial fibrillation Status: Acute Assessment and Plan: No anticoagulation secondary to fall risk. Cardizem drip currently has his rates are high because he has been off his oral medications since he has not been taking oral. Will try to resume oral medications and get off Cardizem drip. Cardiology consult. Subjective Date/time seen: 05/27/22 12:08 No longer on BiPAP. Much more alert. Exam Narrative: General: alert and oriented Psych: appropriate mood nad affect Eyes: PERRLA Neck: Trachea midline, no new lesions Skin: no changes Lungs: Wheeze heard bilaterally Cardiac: Normal S1,S2, no MGR ABD: soft, nd, nt, nbs Ext: no new lesions, no cce Vasc: Pulses intact Objective Data Vital Signs Vital Signs: Vital Signs - 24 hr 05/26/22 13:35 05/26/22 13:42 05/26/22 14:00 Temperature Pulse Rate 130 H 132 H 135 H Respiratory Rate 26 H 26 H Blood Pressure Pulse Oximetry Oxygen Delivery Oxygen Flow Rate Fraction of Inspired Oxygen 05/26/22 15:15 05/26/22 16:00 05/26/22 16:00 Temperature 98.3 F Pulse Rate 130 H 141 H 135 H Respiratory Rate 22 H Blood Pressure 114/64 102/81 Pulse Oximetry 91 Oxygen Delivery Oxygen Flow Rate Fraction of Inspired Oxygen 05/26/22 16:00 05/26/22 16:13 05/26/22 18:24 Temperature Pulse Rate 114 H Respiratory Rate Blood Pressure 122/89 Pulse Oximetry 91 98 Oxygen Delivery Nasal Cannula Nasal Cannula Oxygen Flow Rate 3 3 Fraction of Inspired Oxygen 05/26/22 18:24 05/26/22 18:00 05/26/22 20:04 Temperature Pulse Rate 114 H 110 H 103 H Respiratory Rate 29 H Blood Pressure 122/89 Pulse Oximetry 100 Oxygen Delivery BiPAP Oxygen Flow Rate Fraction of Inspired Oxygen 05/26/22 20:00 05/26/22 20:00 05/26/22 20:00 Temperature Pulse Rate 103 H 119 H 119 H Respiratory Rate 29 H 21 H Blood Pressure Pulse Oximetry 83 L Oxygen Delivery BiPAP Oxygen Flow Rate Fraction of Inspired Oxygen 35 05/26/22 20:00 05/26/22 22:00 05/26/22 21:00 Temperature 98.9 F Pulse Rate 119 H 104 H 100 Respiratory Rate 21 H Blood Pressure 123/89 Pulse Oximetry 83 L Oxygen Delivery Oxygen Flow Rate Fraction of Inspired Oxygen 05/26/22 23:00 05/27/22 00:26 05/27/22 00:26 Temperature Pulse Rate 101 H 93 93 Respiratory Rate 20 Blood Pressure 98/68 L 98/68 L Pulse Oximetry 100 Oxygen Delivery BiPAP Oxygen Flow Rate Fraction of Inspired Oxygen 05/27/22 00:00 05/27/22 00:00 05/27/22 00:00 Temperature 98.9 F Pulse Rate 95 95 95 Respiratory Rate 24 H 24 H Blood Pressure 98/68 L Pulse Oximetry 99
--- NOTE | 2022-05-27 13:42 | PM.PNPUL ---
Progress Note: A&P Assessment and Plan (1) Acute and chronic respiratory failure with hypercapnia: Code(s): J96.22 - Acute and chronic respiratory failure with hypercapnia Status: Acute Assessment and Plan: He has COPD, elevated left hemidiaphragm with decreased FRC, smoking;, was recently here with angioedema due to LEIGHTON-inhibitor; now here with acute worsening of his hypercapnic hypoxemic respiratory failure which pushed his heart into rapid atrial fibrillation. He says that he increased his O2 at home, and this may have contributed to some of the CO2 retention He needs a ventilator due to chronic respiratory failure due to COPD. He continues to have persistent hypercapnia with BiPAP used as prescribed during this particular episode of care. Volume ventilation is indicated. I am ordering a Trilogy NIV to meet the patient's ventilatory requirements. He can use this during hours of sleep as well as during waking hours when symptomatic. Home BiPAP is not appropriate. 05/27/2022- ABG 7.4/53.4/64.3/ 32.7/92.3% pCO2 53.4 on BiPAP 16/8 and 30% DME is [facility] (2) Tobacco abuse: Code(s): Z72.0 - Tobacco use Status: Acute Assessment and Plan: smoking 1 ppd x 45 years; not compatible with his current co-morbidities COPD and AFibRVR, falls strongly encourage tobacco cessation (3) COPD (chronic obstructive pulmonary disease): Code(s): J44.9 - Chronic obstructive pulmonary disease, unspecified Status: Chronic Assessment and Plan: Has COPD, uses Trelegy and albuterol inhaler and nebulizer; still smokes; working to quit tobacco (4) Obstructive sleep apnea: Code(s): G47.33 - Obstructive sleep apnea (adult) (pediatric) Status: Acute Assessment and Plan: Uses CPAP at home, unknown settings, and unknown amount of O2; will not need CPAP when Trilogy is started Time Spent With Patient Time with patient: 15 - 25 minutes Subjective Date/time seen: 05/27/22 13:42 Interval history: hospital follow up May 27, 2022 - 13:40 Israel Plascencia is 66 yo man admitted May 09 through May 15 with angioedema from an LEIGHTON-inhibitor, acute on chronic hypercapnic respiratory failure treated with BiPAP, COPD exacerbation. He was discharged home on his baseline 2 L/min O2. He fell at home, landing on the right side of his face with shiner in the right eye without loss of consciousness. His pCO2 was over 100 and his saturation was low when EMS found him. He was in NSR, then developed? Areial fibrillation with rapid response at 160s, treated with a diltiazem drip. He has had this before, and is not anticoagulated because he falls often. On this admission, he wore BiPAP with improvement in his CO2 retention, became more alert. His told the nurse in the ICU that he gets confused when his CO2 is high. The patient says that he turns his O2 up at home. His usual O2 flow is 2 L/min, and he had it at 3 L/min or higher at home.? He uses CPAP at home. COPD: uses Trelegy 100 one puff a day and albuterol inhaler 1-2 times a day and albuterol in nebulizer 1-2 times a day. PMH: CAD with stents, sees Dr Jacobo at [facility], PAF, falls, lipids, obstructive sleep apnea on CPAP with unknown settings, COPD on O2 2 L/min at home; HTN, and he smokes. May 27, 2022- He was seen in the ICU, on IMU status, waiting for a bed to move out. I spoke with [phone] to see if our plan for NPPV is appropriate in his setting. Dr Sears is in [facility]. 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 He was able to come off the diltiazem drip at 4:30 am now on oral medications. The patient fee
--- NOTE | 2022-05-27 14:42 | PCRCNOTE ---
TRILOGY SET UP PENDING WITH KELLY. PHONE NUMBER [phone]
[2022-05-28] VITALS (27 sets, daily range): BP systolic 123–143; BP diastolic 73–96; PULSE 78–110; RESP 11–23; TEMP 36.6–37.1; O2SAT 87–99; BMI 27.1
[2022-05-28] MEDS: IPRATROPIUM BR 0.02% INH SOLN 0.5 MG/2.5 ML VIAL INHALATION ×4 (02:45→20:05)
[2022-05-28] MEDS: ALBUTEROL SULFATE NEB 2.5 MG/3 ML INH 5 MG INHALATION ×4 (02:45→20:05)
[2022-05-28] MEDS: oxyCODONE/ACETAMINOPHEN (*CRX) 10-325 MG TABLET 1 TAB PO ×3 (07:52→21:10)
[2022-05-28] MEDS: FLUTICASONE/UMECLIDIN/VILANTER 100-62.5-25 MCG ELLIPTA 1 PUFF INHALATION (08:10)
[2022-05-28] MEDS: sulfaSALAzine 500 MG TABLET 1000 MG PO ×2 (09:18→17:09)
[2022-05-28] MEDS: CYCLOBENZAPRINE HCL 5 MG TABLET PO ×2 (09:18→20:52)
[2022-05-28] MEDS: ATORVASTATIN 20 MG TABLET PO (09:19)
[2022-05-28] MEDS: ASPIRIN 81 MG ENTERIC TABLET PO (09:19)
[2022-05-28] MEDS: ARIPiprazole 2 MG TABLET PO (09:19)
[2022-05-28] MEDS: FOLIC ACID 1 MG TABLET 3 MG PO (09:20)
[2022-05-28] MEDS: carvediloL 25 MG TABLET PO ×2 (09:21→20:51)
[2022-05-28] MEDS: VENLAFAXINE HCL XR 75 MG CAP.ER.24H 225 MG PO (09:21)
[2022-05-28] MEDS: methylPREDNISolone SOD SUCC 40 MG VIAL IV PUSH (09:25)
--- NOTE | 2022-05-28 10:57 | PM.IMPN ---
Progress Note: A&P Assessment and Plan (1) Acute and chronic respiratory failure with hypercapnia: Code(s): J96.22 - Acute and chronic respiratory failure with hypercapnia Status: Acute Assessment and Plan: Likely secondary to underlying COPD. Continue nebulizers. Continue IV Solu-Medrol. Appreciate Pulmonary input (2) Tobacco abuse: Code(s): Z72.0 - Tobacco use Status: Acute Assessment and Plan: History of. (3) COPD exacerbation: Code(s): J44.1 - Chronic obstructive pulmonary disease with (acute) exacerbation Status: Acute Assessment and Plan: No need for antibiotics. Continue nebulizers and steroids. BiPAP as well. (4) Bipolar disorder: Code(s): F31.9 - Bipolar disorder, unspecified Status: Acute Assessment and Plan: Chronic and stable. (5) Anxiety and depression: Code(s): F41.9 - Anxiety disorder, unspecified; F32.9 - Major depressive disorder, single episode, unspecified Status: Chronic Assessment and Plan: Monitor (6) Chronic back pain: Code(s): M54.9 - Dorsalgia, unspecified; G89.29 - Other chronic pain Status: Acute Assessment and Plan: Chronic. (7) Paroxysmal atrial fibrillation: Code(s): I48.0 - Paroxysmal atrial fibrillation Status: Acute Assessment and Plan: No anticoagulation secondary to fall risk. Cardizem drip currently has his rates are high because he has been off his oral medications since he has not been taking oral. Will try to resume oral medications and get off Cardizem drip. Cardiology consult. Subjective Date/time seen: 05/28/22 10:57 Denies complaints currently to 3 L nasal cannula Exam Narrative: General: alert and oriented Psych: appropriate mood nad affect Eyes: PERRLA Neck: Trachea midline, no new lesions Skin: no changes Lungs: Wheeze heard bilaterally Cardiac: Normal S1,S2, no MGR ABD: soft, nd, nt, nbs Ext: no new lesions, no cce Vasc: Pulses intact Objective Data Vital Signs Vital Signs: Vital Signs - 24 hr 05/27/22 12:00 05/27/22 12:00 05/27/22 12:00 Temperature 98.2 F Pulse Rate 71 71 71 Respiratory Rate 19 19 Blood Pressure 113/80 Pulse Oximetry 98 98 Oxygen Delivery Nasal Cannula Oxygen Flow Rate 2 05/27/22 13:29 05/27/22 13:43 05/27/22 14:00 Temperature Pulse Rate 92 87 81 Respiratory Rate 22 H 20 Blood Pressure Pulse Oximetry Oxygen Delivery Oxygen Flow Rate 05/27/22 16:00 05/27/22 16:00 05/27/22 16:00 Temperature 98.4 F Pulse Rate 81 81 81 Respiratory Rate 12 12 Blood Pressure 115/80 Pulse Oximetry 100 100 Oxygen Delivery Nasal Cannula Oxygen Flow Rate 2 05/27/22 18:00 05/27/22 20:40 05/27/22 21:12 Temperature Pulse Rate 90 92 95 Respiratory Rate 20 Blood Pressure Pulse Oximetry 96 Oxygen Delivery Nasal Cannula Oxygen Flow Rate 2 05/27/22 20:45 05/27/22 21:18 05/27/22 20:00 Temperature Pulse Rate 96 89 Respiratory Rate 18 22 H Blood Pressure Pulse Oximetry 100 96 Oxygen Delivery BiPAP Nasal Cannula Oxygen Flow Rate 2 05/27/22 20:00 05/27/22 20:00 05/27/22 22:00 Temperature 98.1 F Pulse Rate 98 87 103 H Respiratory Rate 18 Blood Pressure 134/79 Pulse Oximetry 98 Oxygen Delivery Oxygen Flow Rate 05/28/22 00:00 05/28/22 00:00 05/28/22 00:00 Temperature 98.4 F Pulse Rate 96 90 Respiratory Rate 21 H Blood Pressure 123/89 Pulse Oximetry 96 Oxygen Delivery BiPAP Oxygen Flow Rate 05/28/22 00:20 05/28/22 02:00 05/28/22 02:45 Temperature Pulse Rate 84 90 80 Respiratory Rate 23 H 22 H Blood Pressure Pulse Oximetry 95 Oxygen Delivery BiPAP Oxygen Flow Rate 05/28/22 02:52 05/28/22 02:46 05/28/22 04:00 Temperature Pulse Rate 89 80 Respiratory Rate 21 H 20 Blood Pressure Pulse Oximetry 95 93 Oxygen Delivery BiPAP Nasal Cannula Oxygen Flow Rate
--- NOTE | 2022-05-28 13:55 | PC.NURSE ---
Report given to GLENYS Lunsford. All questions answered. Pt transported via bed while on 2L O2 nasal cannula to room 347. Bipap also taken with patient transfer. VSS.
--- NOTE | 2022-05-28 14:21 | PC.NURSE ---
Patient transferred from ICU to Room 347. Patient is in stable condition.
--- NOTE | 2022-05-28 14:21 | PM.PNPUL ---
Progress Note: A&P Assessment and Plan (1) Acute and chronic respiratory failure with hypercapnia: Code(s): J96.22 - Acute and chronic respiratory failure with hypercapnia Status: Acute Assessment and Plan: He has COPD, elevated left hemidiaphragm with decreased FRC, smoking;, was recently here with angioedema due to LEIGHTON-inhibitor; now here with acute worsening of his hypercapnic hypoxemic respiratory failure which pushed his heart into rapid atrial fibrillation. He says that he increased his O2 at home, and this may have contributed to some of the CO2 retention He needs a ventilator due to chronic respiratory failure due to COPD. He continues to have persistent hypercapnia with BiPAP used as prescribed during this particular episode of care. Volume ventilation is indicated. I am ordering a Trilogy NIV to meet the patient's ventilatory requirements. He can use this during hours of sleep as well as during waking hours when symptomatic. Home BiPAP is not appropriate. 05/27/2022- ABG 7.4/53.4/64.3/ 32.7/92.3% pCO2 53.4 on BiPAP 16/8 and 30% DME is [facility] (2) Tobacco abuse: Code(s): Z72.0 - Tobacco use Status: Acute Assessment and Plan: smoking 1 ppd x 45 years; not compatible with his current co-morbidities COPD and AFibRVR, falls strongly encourage tobacco cessation (3) COPD (chronic obstructive pulmonary disease): Code(s): J44.9 - Chronic obstructive pulmonary disease, unspecified Status: Chronic Assessment and Plan: Has COPD, uses Trelegy and albuterol inhaler and nebulizer; still smokes; working to quit tobacco (4) Obstructive sleep apnea: Code(s): G47.33 - Obstructive sleep apnea (adult) (pediatric) Status: Acute Assessment and Plan: Uses CPAP at home, unknown settings, and unknown amount of O2; will not need CPAP when Trilogy is started Subjective Date/time seen: 05/28/22 14:21 Interval history: hospital follow up Israel Plascencia is 66 yo man admitted May 09 through May 15 with angioedema from an LEIGHTON-inhibitor, acute on chronic hypercapnic respiratory failure treated with BiPAP, COPD exacerbation. He was discharged home on his baseline 2 L/min O2. He fell at home, landing on the right side of his face with shiner in the right eye without loss of consciousness. His pCO2 was over 100 and his saturation was low when EMS found him. He was in NSR, then developed? Areial fibrillation with rapid response at 160s, treated with a diltiazem drip. He has had this before, and is not anticoagulated because he falls often. On this admission, he wore BiPAP with improvement in his CO2 retention, became more alert. His told the nurse in the ICU that he gets confused when his CO2 is high. The patient says that he turns his O2 up at home. His usual O2 flow is 2 L/min, and he had it at 3 L/min or higher at home.? He uses CPAP at home. COPD: uses Trelegy 100 one puff a day and albuterol inhaler 1-2 times a day and albuterol in nebulizer 1-2 times a day. PMH: CAD with stents, sees Dr Jacobo at [facility], PAF, falls, lipids, obstructive sleep apnea on CPAP with unknown settings, COPD on O2 2 L/min at home; HTN, and he smokes. May 27, 2022- He was seen in the ICU, on IMU status, waiting for a bed to move out. I spoke with [phone] to see if our plan for NPPV is appropriate in his setting. Dr Sears is in [facility]. 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 He was able to come off the diltiazem drip at 4:30 am now on oral medications. The patient feels better, sitting on the side of the bed, has less shortness of breath, no sputu
[2022-05-28] MEDS: NICOTINE (*PBKC) 21 MG PATCH 1 PATCH TRANSDERM (21:07)
[2022-05-29] VITALS (21 sets, daily range): BP systolic 146–173; BP diastolic 82–90; PULSE 67–120; RESP 18–25; TEMP 35.4–36.8; O2SAT 93–100
[2022-05-29] MEDS: ALBUTEROL SULFATE NEB 2.5 MG/3 ML INH 5 MG INHALATION ×4 (02:20→20:36)
[2022-05-29] MEDS: IPRATROPIUM BR 0.02% INH SOLN 0.5 MG/2.5 ML VIAL INHALATION ×4 (02:20→20:36)
[2022-05-29] MEDS: oxyCODONE/ACETAMINOPHEN (*CRX) 10-325 MG TABLET 1 TAB PO ×3 (03:31→20:47)
[2022-05-29] MEDS: CYCLOBENZAPRINE HCL 5 MG TABLET PO ×2 (06:56→15:18)
[2022-05-29] MEDS: FLUTICASONE/UMECLIDIN/VILANTER 100-62.5-25 MCG ELLIPTA 1 PUFF INHALATION (08:08)
[2022-05-29] MEDS: ARIPiprazole 2 MG TABLET PO (08:47)
[2022-05-29] MEDS: ASPIRIN 81 MG ENTERIC TABLET PO (08:47)
[2022-05-29] MEDS: ATORVASTATIN 20 MG TABLET PO (08:49)
[2022-05-29] MEDS: carvediloL 25 MG TABLET PO ×2 (08:49→20:47)
[2022-05-29] MEDS: methylPREDNISolone SOD SUCC 40 MG VIAL IV PUSH (08:50)
[2022-05-29] MEDS: NICOTINE (*PBKC) 21 MG PATCH 1 PATCH TRANSDERM (08:50)
[2022-05-29] MEDS: FOLIC ACID 1 MG TABLET 3 MG PO (08:50)
[2022-05-29] MEDS: sulfaSALAzine 500 MG TABLET 1000 MG PO ×2 (08:52→17:28)
[2022-05-29] MEDS: VENLAFAXINE HCL XR 75 MG CAP.ER.24H 225 MG PO (08:53)
--- NOTE | 2022-05-29 10:17 | PM.IMPN ---
Progress Note: A&P Assessment and Plan (1) Acute and chronic respiratory failure with hypercapnia: Code(s): J96.22 - Acute and chronic respiratory failure with hypercapnia Status: Acute Assessment and Plan: Likely secondary to underlying COPD. Continue nebulizers. Continue IV Solu-Medrol. Appreciate Pulmonary input (2) Tobacco abuse: Code(s): Z72.0 - Tobacco use Status: Acute Assessment and Plan: History of. (3) COPD exacerbation: Code(s): J44.1 - Chronic obstructive pulmonary disease with (acute) exacerbation Status: Acute Assessment and Plan: No need for antibiotics. Continue nebulizers and steroids. BiPAP as well. (4) Bipolar disorder: Code(s): F31.9 - Bipolar disorder, unspecified Status: Acute Assessment and Plan: Chronic and stable. (5) Anxiety and depression: Code(s): F41.9 - Anxiety disorder, unspecified; F32.9 - Major depressive disorder, single episode, unspecified Status: Chronic Assessment and Plan: Monitor (6) Chronic back pain: Code(s): M54.9 - Dorsalgia, unspecified; G89.29 - Other chronic pain Status: Acute Assessment and Plan: Chronic. (7) Paroxysmal atrial fibrillation: Code(s): I48.0 - Paroxysmal atrial fibrillation Status: Acute Assessment and Plan: No anticoagulation secondary to fall risk. Jeanie hernandez currently has his rates are high because he has been off his oral medications since he has not been taking oral. Will try to resume oral medications and get off Cardizem drip. Cardiology consult. Subjective Date/time seen: 05/29/22 10:17 No complaints Exam Narrative: General: alert and oriented Psych: appropriate mood nad affect Eyes: PERRLA Neck: Trachea midline, no new lesions Skin: no changes Lungs: Wheeze heard bilaterally Cardiac: Normal S1,S2, no MGR ABD: soft, nd, nt, nbs Ext: no new lesions, no cce Vasc: Pulses intact Objective Data Vital Signs Vital Signs: Vital Signs - 24 hr 05/28/22 11:35 05/28/22 12:00 05/28/22 12:38 Temperature 98.7 F 98.2 F Pulse Rate 80 89 78 Respiratory Rate 20 11 L Blood Pressure 126/73 143/84 H Pulse Oximetry 96 92 Oxygen Delivery Oxygen Flow Rate 05/28/22 14:03 05/28/22 14:06 05/28/22 14:15 Temperature 98.6 F Pulse Rate 93 95 96 Respiratory Rate 20 20 20 Blood Pressure 142/78 H Pulse Oximetry 89 L Oxygen Delivery Oxygen Flow Rate 05/28/22 16:00 05/28/22 20:00 05/28/22 20:08 Temperature Pulse Rate 97 103 H 99 Respiratory Rate 20 20 Blood Pressure Pulse Oximetry Oxygen Delivery Oxygen Flow Rate 05/28/22 20:08 05/28/22 20:00 05/28/22 20:51 Temperature 98 F Pulse Rate 96 110 H 100 Respiratory Rate 20 20 Blood Pressure 138/76 Pulse Oximetry 97 97 Oxygen Delivery Nasal Cannula Oxygen Flow Rate 2 05/28/22 20:00 05/28/22 20:00 05/28/22 22:20 Temperature Pulse Rate 108 H 100 Respiratory Rate 23 H 23 H Blood Pressure Pulse Oximetry 99 99 Oxygen Delivery Nasal Cannula BiPAP Oxygen Flow Rate 2 05/28/22 23:51 05/29/22 00:00 05/29/22 02:20 Temperature 98.2 F Pulse Rate 93 95 67 Respiratory Rate 22 H 25 H Blood Pressure 134/89 Pulse Oximetry 98 Oxygen Delivery Oxygen Flow Rate 05/29/22 02:20 05/29/22 02:30 05/29/22 04:00 Temperature Pulse Rate 67 71 78 Respiratory Rate 21 H 21 H Blood Pressure Pulse Oximetry 97 Oxygen Delivery BiPAP Oxygen Flow Rate 05/29/22 04:00 05/29/22 08:11 05/29/22 08:12 Temperature 97.6 F Pulse Rate 79 103 H 103 H Respiratory Rate 18 20 20 Blood Pressure 168/88 H Pulse Oximetry 94 93 Oxygen Delivery Nasal Cannula Oxygen Flow Rate 2 05/29/22 08:00 05/29/22 08:29 05/29/22 08:49 Temperature Pulse Rate 99 99 115 H Respiratory Rate 20 Blood Pressure Pulse Oximetry Oxygen Delivery Oxygen Flow Rate 05/29/22
[2022-05-30] VITALS (19 sets, daily range): BP systolic 138–156; BP diastolic 72–92; PULSE 74–130; RESP 16–22; TEMP 36.2–36.9; O2SAT 92–100
[2022-05-30] MEDS: CYCLOBENZAPRINE HCL 5 MG TABLET PO ×2 (00:09→20:55)
[2022-05-30] MEDS: IPRATROPIUM BR 0.02% INH SOLN 0.5 MG/2.5 ML VIAL INHALATION ×3 (02:31→13:56)
[2022-05-30] MEDS: ALBUTEROL SULFATE NEB 2.5 MG/3 ML INH 5 MG INHALATION ×2 (02:32→08:22)
[2022-05-30] MEDS: oxyCODONE/ACETAMINOPHEN (*CRX) 10-325 MG TABLET 1 TAB PO ×4 (02:39→22:55)
[2022-05-30 08:55] LABS: Hematocrit 36.9 % (42.0-52.0); Hemoglobin 11.3 g/dL (14.0-18.0); Mean Corpuscular HGB Conc 30.6 g/dl (32-36); Mean Corpuscular Hemoglobin 28.2 pg (26-34); Mean Platelet Volume 9.9 fl (7.4-10.4); Platelet Count Result 219 k/mm3 (150-375); Red Blood Count 4.01 M/mm3 (4.6-6.20); Red Cell Distribution Width 15.9 % (11.5-14.5); White Blood Count 10.5 K/mm3 (4.5-10.0)
[2022-05-30 09:10] LABS: Alanine Aminotransferase 43 U/L (6-50); Albumin Level 3.1 g/dL (3.5-5.1); Alkaline Phosphatase 82 U/L (38-126); Anion Gap 0 mmol/L (8-16); Aspartate Amino Transferase 43 U/L (17-59); Bilirubin,Total 0.4 mg/dL (0.2-1.3); Blood Urea Nitrogen 21 mg/dL (9-20); Calcium 8.3 mg/dL (8.4-10.2); Carbon Dioxide 39 mmol/L (22-30); Chloride 93 mmol/L (98-107); Estimated CRCL calculation 74 ml/min; Estimated Glomerular Filt Rate > 60; Glucose 167 mg/dL (65-110); Potassium 4.4 mmol/L (3.4-5.0); Sodium 132 mmol/L (137-145)
--- NOTE | 2022-05-30 09:47 | PCRCNOTE ---
FAXED TRILOGY SET UP TO [facility].
[2022-05-30] MEDS: ASPIRIN 81 MG ENTERIC TABLET PO (09:58)
[2022-05-30] MEDS: carvediloL 25 MG TABLET PO ×2 (09:58→20:51)
[2022-05-30] MEDS: ATORVASTATIN 20 MG TABLET PO (09:58)
[2022-05-30] MEDS: ARIPiprazole 2 MG TABLET PO (09:58)
[2022-05-30] MEDS: methylPREDNISolone SOD SUCC 40 MG VIAL IV PUSH (09:59)
[2022-05-30] MEDS: VENLAFAXINE HCL XR 75 MG CAP.ER.24H 225 MG PO (09:59)
[2022-05-30] MEDS: FOLIC ACID 1 MG TABLET 3 MG PO (09:59)
[2022-05-30] MEDS: sulfaSALAzine 500 MG TABLET 1000 MG PO ×2 (09:59→16:48)
--- NOTE | 2022-05-30 11:11 | PCRCNOTE ---
Window of time for administration has passed. See next scheduled administration.
--- NOTE | 2022-05-30 11:25 | PM.IMPN ---
Progress Note: A&P Assessment and Plan (1) Acute and chronic respiratory failure with hypercapnia: Code(s): J96.22 - Acute and chronic respiratory failure with hypercapnia Status: Acute Assessment and Plan: Likely secondary to underlying COPD. Continue nebulizers. Continue IV Solu-Medrol. Appreciate Pulmonary input (2) Tobacco abuse: Code(s): Z72.0 - Tobacco use Status: Acute Assessment and Plan: History of. (3) COPD exacerbation: Code(s): J44.1 - Chronic obstructive pulmonary disease with (acute) exacerbation Status: Acute Assessment and Plan: No need for antibiotics. Continue nebulizers and steroids. BiPAP as well. (4) Bipolar disorder: Code(s): F31.9 - Bipolar disorder, unspecified Status: Acute Assessment and Plan: Chronic and stable. (5) Anxiety and depression: Code(s): F41.9 - Anxiety disorder, unspecified; F32.9 - Major depressive disorder, single episode, unspecified Status: Chronic Assessment and Plan: Monitor (6) Chronic back pain: Code(s): M54.9 - Dorsalgia, unspecified; G89.29 - Other chronic pain Status: Acute Assessment and Plan: Chronic. (7) Paroxysmal atrial fibrillation: Code(s): I48.0 - Paroxysmal atrial fibrillation Status: Acute Assessment and Plan: No anticoagulation secondary to fall risk. Jeanie hernandez currently has his rates are high because he has been off his oral medications since he has not been taking oral. Will try to resume oral medications and get off Cardizem drip. Cardiology consult. Subjective Date/time seen: 05/30/22 11:25 No complaints Exam Narrative: General: alert and oriented Psych: appropriate mood nad affect Eyes: PERRLA Neck: Trachea midline, no new lesions Skin: no changes Lungs: Wheeze heard bilaterally Cardiac: Normal S1,S2, no MGR ABD: soft, nd, nt, nbs Ext: no new lesions, no cce Vasc: Pulses intact Objective Data Vital Signs Vital Signs: Vital Signs - 24 hr 05/29/22 13:22 05/29/22 13:25 05/29/22 12:00 Temperature Pulse Rate 120 H 102 H 105 H Respiratory Rate 20 20 Blood Pressure Pulse Oximetry 94 Oxygen Delivery BiPAP Oxygen Flow Rate Fraction of Inspired Oxygen 05/29/22 13:35 05/29/22 14:06 05/29/22 16:00 Temperature 95.8 F L Pulse Rate 100 94 105 H Respiratory Rate 20 22 H Blood Pressure 155/86 H Pulse Oximetry 98 Oxygen Delivery Oxygen Flow Rate Fraction of Inspired Oxygen 05/29/22 18:11 05/29/22 20:37 05/29/22 20:37 Temperature Pulse Rate 98 87 87 Respiratory Rate 20 18 18 Blood Pressure Pulse Oximetry 96 93 Oxygen Delivery BiPAP Nasal Cannula Oxygen Flow Rate 3 Fraction of Inspired Oxygen 05/29/22 20:47 05/29/22 20:47 05/29/22 20:00 Temperature 98.1 F Pulse Rate 88 87 98 Respiratory Rate 18 22 H Blood Pressure 173/90 H Pulse Oximetry 100 Oxygen Delivery Oxygen Flow Rate Fraction of Inspired Oxygen 05/29/22 20:00 05/29/22 20:00 05/30/22 00:00 Temperature Pulse Rate 99 101 H Respiratory Rate Blood Pressure Pulse Oximetry Oxygen Delivery Nasal Cannula Oxygen Flow Rate 2 Fraction of Inspired Oxygen 05/30/22 00:00 05/30/22 02:33 05/30/22 02:34 Temperature 98.5 F Pulse Rate 88 87 89 Respiratory Rate 20 18 22 H Blood Pressure 155/72 H Pulse Oximetry 100 97 Oxygen Delivery BiPAP Oxygen Flow Rate Fraction of Inspired Oxygen 05/29/22 23:00 05/30/22 03:03 05/30/22 04:00 Temperature 98.5 F Pulse Rate 89 84 74 Respiratory Rate 24 H 18 18 Blood Pressure 148/77 H Pulse Oximetry 97 98 Oxygen Delivery BiPAP Oxygen Flow Rate Fraction of Inspired Oxygen 05/30/22 04:00 05/30/22 08:24 05/30/22 08:25 Temperature Pulse Rate 98 92 92 Respiratory Rate 18 20 Blood Pressure Pulse Oximetry 95 Oxygen Delivery BiPAP Oxygen Flow Rate Fraction o
[2022-05-30] MEDS: ALBUTEROL SULFATE NEB 2.5 MG/3 ML INH INHALATION (13:56)
--- NOTE | 2022-05-30 14:28 | PM.PNPUL ---
Progress Note: A&P Assessment and Plan (1) Acute and chronic respiratory failure with hypercapnia: Code(s): J96.22 - Acute and chronic respiratory failure with hypercapnia Status: Acute Assessment and Plan: He has COPD, elevated left hemidiaphragm with decreased FRC, smoking;, was recently here with angioedema due to LEIGHTON-inhibitor; now here with acute worsening of his hypercapnic hypoxemic respiratory failure which pushed his heart into rapid atrial fibrillation. He says that he increased his O2 at home, and this may have contributed to some of the? CO2 retention He needs a ventilator due to chronic respiratory failure due to COPD.??He continues to have persistent hypercapnia with BiPAP used as prescribed during this particular episode of care.? Volume ventilation is indicated. I am ordering a Trilogy NIV to meet the patient's ventilatory requirements. He can use this during hours of sleep as well as during waking hours when symptomatic.? Home BiPAP is not appropriate. 05/27/2022- ABG 7.4/53.4/64.3/ 32.7/92.3% ? pCO2 53.4 on BiPAP 16/8 and 30% DME is [facility]. Orders completed on 05/27/2022 for AVAPS-AE, rate of 18, tidal volume 500, EPAP minimum 5, EPAP maximum 12, pressure support minimum 10, pressure support maximum 20 with 2 L bleed in 05/30/22 patient tells me he is breathing back at his baseline. Patient wore BiPAP 16/8 last night and I will change him to AVAPS mode with a rate of 18, tidal volume 500, EPAP 5, minimal inspiratory pressure 6, maximal inspiratory pressure 25, inspiratory time 1.10 seconds, rise of 5 and 30% FiO2. Patient has an ecchymotic lesion on the bridge of his nose from the BiPAP mask and tonight we will attempt to place him on full face mask under the nose. Will obtain an overnight oximetry and a blood gas prior to removal of the settings. (2) COPD (chronic obstructive pulmonary disease): Code(s): J44.9 - Chronic obstructive pulmonary disease, unspecified Status: Chronic Assessment and Plan: Today will be his last day of systemic steroids. Patient currently on trelelgy 100/62.5/25 at 1 puff Q day and albuterol and ipratropium nebulizers q.6 hours PRN. (3) Obstructive sleep apnea: Code(s): G47.33 - Obstructive sleep apnea (adult) (pediatric) Status: Acute Assessment and Plan: due to patient's chronic hypercapnic respiratory failure from COPD patient will be placed on a home trilogy with the settings as above. Subjective Date/time seen: 05/30/22 14:28 Interval history: 05/28/22? 14:21 Interval history: hospital follow up? Israel Plascencia is 66 yo man admitted May 09 through May 15 with angioedema from an LEIGHTON-inhibitor, acute on chronic hypercapnic respiratory failure treated with BiPAP, COPD exacerbation.? He was discharged home on his baseline 2 L/min O2.? He fell at home, landing on the right side of his face with shiner in the right eye without loss of consciousness.? His pCO2 was over 100 and his saturation was low when EMS found him. He was in NSR, then developed? Areial fibrillation with rapid response at 160s, treated with a diltiazem drip. He has had this before, and is not anticoagulated because he falls often. On this admission, he wore BiPAP with improvement in his CO2 retention, became more alert. His told the nurse in the ICU that he gets confused when his CO2 is high. The patient says that he turns his O2 up at home. His usual O2 flow is 2 L/min, and he had it at 3 L/min or higher at home.? He uses CPAP at home. COPD: uses Trelegy 100 one puff a day and albuterol inhaler 1-2 times a day and albuterol in nebulizer 1-2 times a day. PMH: CAD with stents, sees Dr Jacobo at [facility], PAF, falls, lipids, obstructive sleep apnea on CPAP with unknown settings, COPD on O2 2 L/min at home; HTN, and he smokes. May 27, 2022- He was seen in the ICU, on IMU status, waiting for a bed to move out.? I spoke with [phone] to see if our plan for NPPV is
[2022-05-31] VITALS (20 sets, daily range): BP systolic 140–158; BP diastolic 84–94; PULSE 63–115; RESP 18–26; TEMP 36.1–36.7; O2SAT 84–97
[2022-05-31 04:46] LABS: Alveolar/Arterial O2 Gradient 58.2 mmHg; Fractional Inspired Oxygen 30 %; HCO3 ABG 38.8 mEq/l (22.0-26.0); Oxygen Content ABG 16.6 %vol (16.0-22.0); Oxygen Saturation ABG 96.2 % (95.0-100.0); Oxyhemoglobin 94.1 % THb (90.0-100.0); Total Hemoglobin 12.5 g/dL (12.0-18.0); pH ABG 7.421 (7.350-7.450)
[2022-05-31 04:52] LABS: Modified Allen's Test Pass; Site Drawn RIGHT RADIAL
[2022-05-31 04:53] LABS: Non-Invasive Expiratory Pressure 5 CMH2O; Non-Invasive Inspiratory Pressure 25 CMH2O; Non-Invasive Vent Rate 18 /MIN
[2022-05-31 04:54] LABS: Device NON-INVASIVE VENT
[2022-05-31] MEDS: oxyCODONE/ACETAMINOPHEN (*CRX) 10-325 MG TABLET 1 TAB PO ×2 (04:54→20:18)
[2022-05-31] MEDS: FLUTICASONE/UMECLIDIN/VILANTER 100-62.5-25 MCG ELLIPTA 1 PUFF INHALATION (08:27)
[2022-05-31] MEDS: FOLIC ACID 1 MG TABLET 3 MG PO (08:59)
[2022-05-31] MEDS: carvediloL 25 MG TABLET PO ×2 (08:59→20:14)
[2022-05-31] MEDS: sulfaSALAzine 500 MG TABLET 1000 MG PO ×2 (08:59→18:32)
[2022-05-31] MEDS: VENLAFAXINE HCL XR 75 MG CAP.ER.24H 225 MG PO (09:00)
[2022-05-31] MEDS: ATORVASTATIN 20 MG TABLET PO (09:00)
[2022-05-31] MEDS: ARIPiprazole 2 MG TABLET PO (09:00)
[2022-05-31] MEDS: ASPIRIN 81 MG ENTERIC TABLET PO (09:00)
--- NOTE | 2022-05-31 09:10 | PM.DS ---
DS: Admitting Diagnosis Discharge Date 05/31/22 Admitting Diagnosis Hypercarbic respiratory failure DS: Discharge Diagnosis Discharge Diagnosis (1) Acute and chronic respiratory failure with hypercapnia: Code(s): J96.22 - Acute and chronic respiratory failure with hypercapnia Status: Acute Assessment and Plan: Likely secondary to underlying COPD. Patient Mike sent home on noninvasive ventilator. 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 (3) COPD exacerbation: Code(s): J44.1 - Chronic obstructive pulmonary disease with (acute) exacerbation Status: Acute Assessment and Plan: Chronic (4) Bipolar disorder: Code(s): F31.9 - Bipolar disorder, unspecified Status: Acute Assessment and Plan: Chronic and stable. (5) Anxiety and depression: Code(s): F41.9 - Anxiety disorder, unspecified; F32.9 - Major depressive disorder, single episode, unspecified Status: Chronic Assessment and Plan: Monitor (6) Chronic back pain: Code(s): M54.9 - Dorsalgia, unspecified; G89.29 - Other chronic pain Status: Acute Assessment and Plan: Chronic. (7) Paroxysmal atrial fibrillation: Code(s): I48.0 - Paroxysmal atrial fibrillation Status: Acute Assessment and Plan: No anticoagulation secondary to fall risk. Continue home meds. DS: Summary Hospital Course Hospital Course: See discharge plan and diagnosis Time Spent with Patient Time attestation: Total time spent providing and/or coordinating discharge services: Exam Narrative: General: alert and oriented Psych: appropriate mood nad affect Eyes: PERRLA Neck: Trachea midline, no new lesions Skin: no changes Lungs: Wheeze heard bilaterally Cardiac: Normal S1,S2, no MGR ABD: soft, nd, nt, nbs Ext: no new lesions, no cce Vasc: Pulses intact DS: Data Data Completed and Pending Labs on day of discharge: Labs from last 24 hours 05/31/22 05/30/22 04:45 08:50 Puncture Site Right radial ABG pH 7.421 ABG pCO2 61.0 H* ABG pO2 84.0 ABG PO2/FiO2 Ratio 2.80 ABG HCO3 38.8 H ABG O2 Saturation 96.2 ABG O2 Content 16.6 ABG Base Excess 12.0 A-a Gradient 58.2 Oxyhemoglobin 94.1 Total Hemoglobin 12.5 O2 Delivery Device Non-invasive vent O2 Liters/Min Not Reportable Vent Rate 18 FiO2 30 Expiratory Pressure 5 Inspiratory Pressure 25 Sodium 132 L Potassium 4.4 Chloride 93 L Carbon Dioxide 39 H Anion Gap 0 L BUN 21 H Creatinine 0.80 Estim Creat Clear Calc 74 Estimated GFR > 60 Glucose 167 H Calcium 8.3 L Total Bilirubin 0.4 AST 43 ALT 43 Alkaline Phosphatase 82 Total Protein 5.0 L Albumin 3.1 L Discharge Plan Discharge Attending physician on discharge: Carlos Espino Consulting providers: Len Terry ; Marilou Priutt Discharging Clinician: Carlos Espino Patient Disposition: Home, Self-Care Activity: no preference Diet: as tolerated Patient Instructions: Antibiotic Form, Apixaban (By mouth), How to Stop Smoking (GEN), Safe Use of Anticoagulants (GEN), Blood Thinners (GEN) Stand Alone Forms: General Discharge Information Follow-up/Referrals: Marilou Pruitt MD [Physician] - Discharge Medications: Continued aspirin [Adult Aspirin Regimen] 81 mg tablet,delayed release (DR/EC) 81 mg PO DAILY oxycodone-acetaminophen [Percocet] 10-325 mg tablet 1 tablet PO Q8H PRN (Reason: Pain (Scale Score 4-6)) atorvastatin 20 mg tablet 20 mg PO DAILY Trelegy Ellipta 100-62.5-25 mcg blister with device 1 inh INHALATION DAILY venlafaxine 150 mg capsule,extended release 24hr 225 mg PO DAILY folic acid 1 mg tablet 3 mg PO DAILY albuterol sulfate 90 mcg/actuation HFA aerosol inh
--- NOTE | 2022-05-31 09:42 | PM.PNPUL ---
Progress Note: A&P Assessment and Plan (1) Acute and chronic respiratory failure with hypercapnia: Code(s): J96.22 - Acute and chronic respiratory failure with hypercapnia Status: Acute Assessment and Plan: He has COPD, elevated left hemidiaphragm with decreased FRC, smoking;, was recently here with angioedema due to LEIGHTON-inhibitor; now here with acute worsening of his hypercapnic hypoxemic respiratory failure which pushed his heart into rapid atrial fibrillation. He says that he increased his O2 at home, and this may have contributed to some of the? CO2 retention He needs a ventilator due to chronic respiratory failure due to COPD.??He continues to have persistent hypercapnia with BiPAP used as prescribed during this particular episode of care.? Volume ventilation is indicated. I am ordering a Trilogy NIV to meet the patient's ventilatory requirements. He can use this during hours of sleep as well as during waking hours when symptomatic.? Home BiPAP is not appropriate. 05/27/2022- ABG 7.4/53.4/64.3/ 32.7/92.3% ? pCO2 53.4 on BiPAP 16/8 and 30% DME is [facility]. Orders completed on 05/27/2022 for AVAPS-AE, rate of 18, tidal volume 500, EPAP minimum 5, EPAP maximum 12, pressure support minimum 10, pressure support maximum 20 with 2 L bleed in 05/30/22 patient tells me he is breathing back at his baseline. Patient wore BiPAP 16/8 last night and I will change him to AVAPS mode with a rate of 18, tidal volume 500, EPAP 5, minimal inspiratory pressure 6, maximal inspiratory pressure 25, inspiratory time 1.10 seconds, rise of 5 and 30% FiO2. Patient has an ecchymotic lesion on the bridge of his nose from the BiPAP mask and tonight we will attempt to place him on full face mask under the nose. Will obtain an overnight oximetry and a blood gas prior to removal of the settings. 05/31 Patient tells me his stable and back at his baseline. Patient wore a hospital noninvasive ventilator with AVAPS mode with an under the nose fullface mask a rate of 18, tidal volume 500, EPAP 5, minimal inspiratory pressure 6, maximal inspiratory pressure 25, inspiratory time 1.10 seconds, rise of 5 and 30% FiO2. patient had an ABG in the morning prior to removal of the mask with a pH of 7.42/61/84. patient had an overnight oximetry on these settings with a baseline saturation of 94%. Low saturation 68%. Time with saturation less than or equal to 88% was 67 minutes corresponding to 39% of the monitored time. the settings appear to provide adequate ventilation and will increase his FiO2 to 4 L bleed in at home. From a pulmonary perspective patient is ready to be discharged today on these pulmonary medicines Trelegy 100/62.5/25 at 1 puff q.day Rescue albuterol 2 puffs q.4 hours p.r.n. shortness of breath Oxygen at rest and with ambulation per formal home O2 study which has been ordered. When sleeps and when naps AVAPS-AE, rate of 18, tidal volume 500, EPAP minimum 5, EPAP maximum 12, pressure support minimum 10, pressure support maximum 20 with 4 L bleed in. 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 Monroy and Dr. Sears in [place] on discharge. Discussed with Dr. Espino. (2) COPD (chronic obstructive pulmonary disease): Code(s): J44.9 - Chronic obstructive pulmonary disease, unspecified Status: Chronic Assessment and Plan: Today will be his last day of systemic steroids. Patient currently on trelelgy 100/62.5/25 at 1 puff Q day and albuterol and ipratropium nebulizers q.6 hours PRN. (3) Obstructive sleep apnea: Code(s): G47.33 - Obstructive sleep apnea (adult) (pediatric) Status: Acute Assessment and Plan: due to patient's chronic hypercapnic respiratory failure from COPD patient will be placed on a home trilogy with the settings as above. Subjective Date/time seen: 05/31/22 09:42 Interval history: 05/28/22? 14:21 Interval history: hospital follow up? Israel Plascencia is 66 yo man admitted May 09 thro
--- NOTE | 2022-05-31 11:18 | HOMEO2EVAL ---
Evaluation was performed at [facility] Home Oxygen Evaluation RC: Home Oxygen (O2) Evaluation Start: 05/31/22 09:07 Freq: ONCE Status: Active Protocol: RPE Activity Type Activity Date Activity User E-sign Co-sign Detail Recorded Client Recorded Date Recorded By Document 05/31/22 10:45 AVIVA [email or web address] 05/31/22 11:18 AVIVA Document 05/31/22 10:46 AVIVA [email or web address] 05/31/22 11:18 AVIVA Document 05/31/22 10:47 AVIVA [email or web address] 05/31/22 11:18 AVIVA Document 05/31/22 10:55 AVIVA [email or web address] 05/31/22 11:18 AVIVA Document 05/31/22 11:00 AVIVA [email or web address] 05/31/22 11:18 AVIVA 05/31/22 05/31/22 05/31/22 10:45 10:46 10:47 Home O2 Evaluation Test Phase Resting Resting Resting Oxygen Delivery Room Air Nasal Cannula Nasal Cannula Oxygen Flow Rate (L/min) 1 2 Pulse Oximetry (90-100 %) 84 L 87 L 91 Pulse Rate (60-100 beats/min) 92 92 Home Oxygen Evaluation Comments Treatment Charges O2 Evaluation - Inpatient 05/31/22 05/31/22 10:55 11:00 Home O2 Evaluation Test Phase Exercise Resting Oxygen Delivery Nasal Cannula Nasal Cannula Oxygen Flow Rate (L/min) 2 2 Pulse Oximetry (90-100 %) 94 92 Pulse Rate (60-100 beats/min) 108 H 96 Home Oxygen Evaluation Comments Stand up to Home o2 at 2 L side of bed, resting and steps and back activity. Has to bed. O2 with [facility] . Has Trilogy NIV with [facility] Treatment Charges
--- NOTE | 2022-05-31 11:19 | PCRCNOTE ---
Pt has Home o2 with [employer]. Wears 2 L rest and activity. Home o2 eval done, Pt hasnt walked since admission. No changes to current O2 setting. RN notified. Will have tank for transport home. TRILOGY NIV IS FRANCISCA MENDOZA O2 DME IS [facility]
[2022-05-31] MEDS: CYCLOBENZAPRINE HCL 5 MG TABLET PO (18:34)
[2022-06-01 02:49] VITALS: PULSE 98; RESP 22; O2SAT 96
[2022-06-01 04:45] VITALS: BP 151/87; PULSE 102; RESP 22; TEMP 36.4; O2SAT 95
[2022-06-01 07:52] VITALS: O2SAT 93
[2022-06-01] MEDS: FLUTICASONE/UMECLIDIN/VILANTER 100-62.5-25 MCG ELLIPTA 1 PUFF INHALATION (07:52)
[2022-06-01 08:00] VITALS: O2SAT 93
[2022-06-01] MEDS: ASPIRIN 81 MG ENTERIC TABLET PO (08:58)
[2022-06-01] MEDS: ATORVASTATIN 20 MG TABLET PO (08:58)
[2022-06-01] MEDS: ARIPiprazole 2 MG TABLET PO (08:58)
[2022-06-01] MEDS: VENLAFAXINE HCL XR 75 MG CAP.ER.24H 225 MG PO (08:59)
[2022-06-01] MEDS: FOLIC ACID 1 MG TABLET 3 MG PO (08:59)
[2022-06-01 09:01] VITALS: PULSE 102
[2022-06-01] MEDS: carvediloL 25 MG TABLET PO (09:01)
[2022-06-01] MEDS: sulfaSALAzine 500 MG TABLET 1000 MG PO (10:16)
--- NOTE | 2022-06-01 11:27 | PCRCNOTE ---
SPOKE WITH GENIE MENDOZA, PHONE NUMBER [phone]. PT'S TRILOGY IS READY FOR SET UP AT HOME UPON PT'S DISCHARGE TODAY.
== END 2022-06-01 12:15 | disposition home or self-care (01) | DRG 189 ==
LOC: ANHED 07:39 → ANHICU 14:29 → ANH3MED 05-29 09:47 → ANH2MED 06-02 15:33 → ANHICU 06-02 15:33 → ANHIMU 06-02 15:33
PROVIDERS: Emergency Medicine; Internal Medicine Pulmonary Disease; Admitting Provider Chiropractor; Emergency Provider Emergency Medicine; PCP Family Medicine; Visit Provider Internal Medicine
DX: J96.02 Acute respiratory failure with hypercapnia (principal); J44.1 Chronic obstructive pulmonary disease with (acute) exacerbation; J96.01 Acute respiratory failure with hypoxia; J96.12 Chronic respiratory failure with hypercapnia; I48.0 Paroxysmal atrial fibrillation; I10 Essential (primary) hypertension; I25.10 Atherosclerotic heart disease of native coronary artery without angina pectoris; G47.33 Obstructive sleep apnea (adult) (pediatric); F17.210 Nicotine dependence, cigarettes, uncomplicated; E78.2 Mixed hyperlipidemia; F31.9 Bipolar disorder, unspecified; F41.9 Anxiety disorder, unspecified; H11.31 Conjunctival hemorrhage, right eye; L40.50 Arthropathic psoriasis, unspecified; Z20.822 Contact with and (suspected) exposure to COVID-19; Z95.5 Presence of coronary angioplasty implant and graft; M54.9 Dorsalgia, unspecified; G89.29 Other chronic pain; Z79.82 Long term (current) use of aspirin; Z96.649 Presence of unspecified artificial hip joint; Z90.49 Acquired absence of other specified parts of digestive tract; Z99.81 Dependence on supplemental oxygen; Z91.81 History of falling; R58 Hemorrhage, not elsewhere classified; S05.11XA Contusion of eyeball and orbital tissues, right eye, initial encounter; W18.30XA Fall on same level, unspecified, initial encounter
CPT/HCPCS: 36415; 36600; 70450; 70486; 71045; 80048; 80053; 82375; 82805; 82948; 83050; 85025; 85027; 85610; 85730; 87086; 93005; 93306; 94002; 94003; 94618; 94640; 94660; 94762; 99285; A9270; C9803; J0131; J1644; J2920; J2930; U0003; U0005

== ENCOUNTER 2022-11-30 09:23 | Inpatient (IN) | payer BC, MEDICARE, SELFPAY ==
[2022-11-30] VITALS (26 sets, daily range): BP systolic 112–130; BP diastolic 66–82; PULSE 89–108; RESP 16–27; TEMP 36.5–37; O2SAT 94–100; BMI 23.3
--- NOTE | ~2022-11-30 | XR_ITS ---
EXAMINATION: XR chest 1V portable DATE: 12/03/2022 10:26 INDICATION: Wheezing. TECHNIQUE: A single frontal view of the chest was obtained. COMPARISON: Chest single view 12/01/2022, 05/08/2021, chest CT 01/28/21 FINDINGS: There is chronic marked elevation of right hemidiaphragm. There is mild atelectasis at the lung bases. No pleural effusion or pneumothorax. The heart size is normal. There are old healed left rib fractures. IMPRESSION: 1. Chronic marked elevation of right hemidiaphragm. 2. Mild atelectasis at the lung bases. Reviewed, dictated and finalized at location A. R MECHANIC
--- NOTE | ~2022-11-30 | XR_ITS ---
EXAMINATION: XR sniff test without CXR2V DATE: 12/05/2022 12:39 INDICATION: Right diaphragmatic paralysis. TECHNIQUE: I performed fluoroscopy of the chest while the patient performed normal breathing, deep br eathing, and forceful sniffing. 583 images were obtained. Fluoroscopy exposure time was 0.4 minutes. COMPARISON: Chest single view 12/03/2022, 05/09/2022 FINDINGS: There is elevation of right hemidiaphragm. The right hemidiaphragm is hypomobile with pedro l breathing and demonstrates paradoxical motion with deep breathing and forceful sniffing. IMPRESSION: 1. Abnormal position and motion of right hemidiaphragm, consistent with phrenic nerve palsy. Reviewed, dictated and finalized at location A. NTORY CONTROL PLANNER
--- NOTE | ~2022-11-30 | US_ITS ---
EXAMINATION: US venous doppler [facility] DATE: 12/01/2022 20:51 INDICATION: Chest pain. Shortness of breath. TECHNIQUE: Grayscale ultrasound images without and with compression and Doppler ultrasound images of the bilateral lower extremity veins were obtained. COMPARISON: None. FINDINGS: The visualized portions of right common femoral vein, profunda (deep) femoral vein, femoral vein, pop liteal vein, peroneal veins, posterior tibial veins, and greater saphenous vein outflow are patent. The visualized portions of left common femoral vein, profunda femoral vein, femoral vein, popliteal v ein, peroneal veins, posterior tibial veins, and greater saphenous vein outflow are patent. IMPRESSION: 1. No deep venous thrombosis. Reviewed, dictated and finalized at location A. MICS AX SOLUTION ARCHITECT
--- NOTE | ~2022-11-30 | XR_ITS ---
Portable chest x-ray Comparison: 11/30/2022 Clinical History: Pneumonia Findings: Stable hazy opacity at the right lung base, nonspecific. Left lung remains clear. Cardiom ediastinal silhouette is stable. Bones and soft tissues are unremarkable. Impression: Stable nonspecific hazy opacity right lung base region. Reviewed, dictated and finalized at [facility]. ER SERVICE REPRESENTATIVE Impression: Stable nonspecific hazy opacity right lung base region.
--- NOTE | ~2022-11-30 | XR_ITS ---
Clinical Indication: Chest pain AP and lateral views of the chest: Comparison: 05/25/2022 Findings: The lungs are clear, without evidence of focal consolidation or pleural effusion. Stable el evation right hemidiaphragm noted. Cardiomediastinal silhouette is within normal limits. Bones and so ft tissues are unremarkable. Impression: No acute abnormality. Stable elevation of the right hemidiaphragm. Reviewed, dictated and finalized at location M. OR PATROL POLICE Impression: No acute abnormality. Stable elevation of the right hemidiaphragm.
--- NOTE | 2022-11-30 09:44 | ECG_ITS ---
Measurements Intervals [place] Rate: 93 P: 74 CA: 191 QRS: -23 QRSD: 98 T: 49 QT: 334 QTc: 416 Interpretive Statements SINUS RHYTHM BORDERLINE R WAVE PROGRESSION, ANTERIOR LEADS CONSIDER INFERIOR INFARCT, AGE INDETERMINATE BASELINE ARTIFACT- I, II, III, AVR, AVL, AVF, V1-V6 ABNORMAL ECG COMPARED TO ECG 05/25/2022 05:26:25 SINUS RHYTHM NOW PRESENT Electronically Signed On 11-30-2022 10:23:17 CABLEWAY OPERATOR by Jeronimo Snow D.O.
[2022-11-30 09:53] LABS: Basophils Percent Auto 0.5 % (0.2-1.2); Eosinophils Absolute Auto 0.1 K/mm3 (0-0.3); Eosinophils Percent Auto 2.3 % (0-4.4); Hemoglobin 12.6 g/dL (14.0-18.0); Immature Granulocyte Absolute 0.04 K/mm3 (0.00-0.031); Immature Granulocyte Percent A 0.7 % (0-0.5); Lymphocytes Absolute Auto 1.55 K/mm3 (0.9-3.2); Lymphocytes Percent Auto 27.4 % (18.3-44.2); Mean Corpuscular HGB Conc 32.3 g/dl (32-36); Mean Corpuscular Hemoglobin 29.6 pg (26-34); Mean Corpuscular Volume 91.8 fl (80-100); Mean Platelet Volume 9.9 fl (7.4-10.4); Monocytes Absolute Auto 1.4 K/mm3 (0.1-0.6); Monocytes Percent Auto 25.4 % (2.6-8.5); Neutrophils Absolute Auto 2.5 K/mm3 (1.3-6.7); Neutrophils Percent Auto 43.7 % (45.5-73.1); Platelet Count Result 208 k/mm3 (150-375); Red Blood Count 4.25 M/mm3 (4.6-6.20); Red Cell Distribution Width 15.5 % (11.5-14.5); White Blood Count 5.7 K/mm3 (4.5-10.0)
[2022-11-30 10:03] LABS: Alanine Aminotransferase 37 U/L (6-50); Albumin Level 3.8 g/dL (3.5-5.1); Alkaline Phosphatase 120 U/L (38-126); Anion Gap -1 mmol/L (8-16); Aspartate Amino Transferase 59 U/L (17-59); Bilirubin,Total 0.3 mg/dL (0.2-1.3); Blood Urea Nitrogen 4 mg/dL (9-20); Calcium 8.3 mg/dL (8.4-10.2); Carbon Dioxide 37 mmol/L (22-30); Chloride 88 mmol/L (98-107); Estimated CRCL calculation 81 ml/min; Estimated Glomerular Filt Rate > 60; Glucose 113 mg/dL (65-110); Lipase 192 U/L (23-300); Potassium 4.1 mmol/L (3.4-5.0); Sodium 124 mmol/L (137-145)
[2022-11-30 10:08] LABS: Partial Thromboplastin Time 26.8 SECONDS (22.3-36.8); Prothrombin Time 12.9 Seconds (11.1-14.7)
[2022-11-30 10:15] LABS: Troponin I < 0.012 ng/mL (0.000-0.034)
[2022-11-30] MEDS: IPRATROPIUM BR 0.02% INH SOLN 0.5 MG/2.5 ML VIAL INHALATION ×3 (10:38→20:07)
[2022-11-30] MEDS: ALBUTEROL SULFATE NEB 2.5 MG/3 ML INH 5 MG INHALATION ×3 (10:39→20:07)
[2022-11-30 10:46] LABS: Alveolar/Arterial O2 Gradient 72.2 mmHg; Base Excess ABG 5.4 mEq/l (+/-2.0); Fractional Inspired Oxygen 32 %; HCO3 ABG 33.7 mEq/l (22.0-26.0); Oxygen Content ABG 16.9 %vol (16.0-22.0); Oxygen Saturation ABG 93.8 % (95.0-100.0); Oxyhemoglobin 91.6 % THb (90.0-100.0); PO2 ABG 76.9 mmHg (80.0-100.0); Total Hemoglobin 13.1 g/dL (12.0-18.0); pH ABG 7.315 (7.350-7.450)
[2022-11-30 10:49] LABS: Device NASAL CANNULA; Modified Allen's Test Pass; PCO2 ABG 67.6 mmHg (35.0-45.0); Site Drawn RIGHT RADIAL
[2022-11-30] MEDS: methylPREDNISolone SOD SUCC 125 MG VIAL IV PUSH (10:51)
[2022-11-30 11:36] LABS: Influenza A QL RT-PCR Negative (Negative); Influenza B QL RT-PCR Negative (Negative); SARS-CoV-2 RNA PCR Negative
--- NOTE | 2022-11-30 12:36 | PM.IMHP ---
H&P: HPI History of Present Illness Date/Time: 11/30/22 12:36 Chief Complaint: Shortness of breath Narrative: This is a 66-year-old male patient who has a history of COPD, MABEL and hypertension. The patient typically wears oxygen at 2-3 L per nasal cannula. The patient has been having dyspnea on exertion and increased productive cough with yellow sputum. The patient recently had similar symptoms 1 month ago and was hospitalized at outside hospital. The patient does see the practice specialist here. He denies any fever chills or nausea vomiting. Patient still continues to smoke at times. The patient is not able to talk in full sentences at this time. He is currently wearing a BiPAP with the settings 14/6 with a rate of 16 and 40% FiO2. The patient was given neb treatments and Solu-Medrol in the emergency room. Chest x-ray was read as no acute abnormality. Stable elevation of the right hemidiaphragm. His white count is normal. His H&H is 12.6 and 39.0 which is his baseline. ABGs pH was 7.315 and CO2 was 67.6. Sodium was 124. The patient is being admitted to inpatient status on date of service of 11/30/2022. Review of Systems Review of Systems: See HPI All systems reviewed & are unremarkable except as noted in HPI and below Constitutional: Constitutional: Reports as per HPI and Reports no additional constitutional complaints Eyes: Eyes: Reports as per HPI and Reports no additional eye complaints ENT: Reports system reviewed and no additional complaints, except as documented and Reports Normal hearing present Cardiovascular: Cardiovascular: Reports no additional cardiovascular complaints Respiratory: Respiratory: Reports no additional respiratory complaints and Reports no additional respiratory complaints Gastrointestinal: Gastrointestinal: Reports as per HPI and Reports no additional gastrointestinal complaints Musculoskeletal: Musculoskeletal: Reports no additional musculoskeletal complaints Integumentary/Breasts: Skin/Breast: Reports system reviewed and no additional complaints, except as docu and Reports as per HPI Neurologic: Reports system reviewed and no additional complaints, except as documented, Reports as per HPI and Reports Normal hearing present Psychiatric: Psychiatric: Reports no additional psychiatric complaints and Reports as per HPI Endocrine: Endocrine: Reports no additional endocrine complaints Hematologic/Lymphatic: Hematologic/Lymphatic: Reports no additional hematologic/lymphatic complaints Allergic/Immunologic: Allergic/Immunologic: Reports no additional allergic/immunologic complaints [facility] Past Medical History Medical History (Updated 11/30/22 @ 15:51 by Kelsi Dejesus NP) Adenomatous colon polyp Anxiety and depression Atrial fibrillation Bipolar 1 disorder CAD (coronary artery disease) 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 Repeat evaluation and was in 2017. Chronic back pain Chronic, continuous use of opioids Constipation due to opioid therapy COPD (chronic obstructive pulmonary disease) Depression History of MRSA infection History of stomach ulcers History of suicide attempt multiple times HTN (hypertension) Hyperlipidemia Ileus MRSA infection Obstructive sleep apnea Osteopenia determined by x-ray Psoriatic arthritis Tobacco abuse Tobacco abuse Surgical History Surgical History H/O heart artery stent 1 stent 2004 with a repeat catheterization in 2006 no intervention was done at that time H/O toe surgery hammertoe repair History of ankle surgery left heel repaired History of appendectomy 1986 History of hip replacement Hx of rhinoplasty Family History Family History Father COPD (chronic obstructive pulmonary disease) Mother Cancer Social History Social History (Updated 11/30/22 @ 15:28 by Kelsi Dejesus NP) Social Histor
--- NOTE | 2022-11-30 12:49 | ED.SOB ---
HPI - SOB/Dyspnea General Chief Complaint: Shortness of Breath/Dyspnea Stated Complaint: SOB Time Seen by Provider: 11/30/22 09:51 Source: patient and family Mode of arrival: wheelchair Limitations: no limitations History of Present Illness HPI Narrative: 66-year-old male with past medical history of COPD, MABEL, hypertension, hyperlipidemia, paroxysmal A. fib, and depression who presents with shortness of breath that began a few days ago. He describes increased dyspnea on exertion and increased productive cough with yellow sputum. He normally wears 2 to 3 L of oxygen at home, but has been using BiPAP intermittently throughout the day. He was admitted for similar symptoms 1 month ago at an outside hospital, and his son states that these episodes have been happening every month. Denies recent fever, chills, nausea, vomiting, diarrhea, abdominal pain, or sick contact. Patient still smokes on a regular basis. MD elicited complaint: shortness of breath and cough Pertinent past history: COPD Onset (ago): day(s) (3) Severity: moderate Exacerbating factors: exertion Relieving factors: oxygen, rest and bronchodilators Known history of: COPD Associated symptoms: cough and wheezing Treatment prior to arrival: oxygen and bronchodilator Related Data Home oxygen amount: 3 liters Home Medications Medication Instructions Recorded Confirmed aspirin 81 mg tablet,delayed 81 mg PO DAILY 10/17/19 05/25/22 release (Adult Aspirin Regimen) atorvastatin 20 mg tablet 20 mg PO DAILY 10/17/19 05/25/22 oxycodone-acetaminophen 10 mg-325 1 tablet PO Q8H PRN Pain (Scale 10/17/19 05/25/22 mg tablet (Percocet) Score 4-6) fluticasone fur. 100 mcg-umeclid 1 inh inhalation DAILY 08/29/20 05/25/22 62.5 mcg-vilant 25 mcg inhalat.powder (Trelegy Ellipta) albuterol sulfate 90 mcg/actuation 90 mcg inhalation TID PRN 01/28/21 05/25/22 aerosol inhaler Shortness Of Breath aripiprazole 2 mg tablet 2 mg PO DAILY 01/28/21 05/25/22 folic acid 1 mg tablet 3 mg PO DAILY 01/28/21 05/25/22 venlafaxine 150 mg 225 mg PO DAILY 01/28/21 05/25/22 capsule,extended release 24 hr acetaminophen 300 mg-codeine 60 mg 1 tablet PO DAILY 05/09/22 05/25/22 tablet carvedilol 25 mg tablet (Coreg) 25 mg PO BID 05/09/22 05/25/22 ipratropium 0.5 mg-albuterol 3 mg 3 ml inhalation TID PRN Shortness 05/09/22 05/25/22 (2.5 mg base)/3 mL nebulization Of Breath soln sulfasalazine 500 mg tablet 2 tablet PO BID 05/09/22 05/25/22 cyclobenzaprine 5 mg tablet 5 mg PO HS PRN Pain 05/25/22 05/25/22 Allergies Allergy/AdvReac Type Severity Reaction Status Date / Time vancomycin Allergy Unknown Rash Verified 11/30/22 09:55 Review of Systems Review of Systems: All systems reviewed & are unremarkable except as noted in HPI and below Constitutional: Constitutional: Reports no additional constitutional complaints Eyes: Eyes: Reports no additional eye complaints ENT: Reports system reviewed and no additional complaints, except as documented Cardiovascular: Cardiovascular: Reports no additional cardiovascular complaints Respiratory: Respiratory: Reports as per HPI Gastrointestinal: Gastrointestinal: Reports no additional gastrointestinal complaints Musculoskeletal: Musculoskeletal: Reports no additional musculoskeletal complaints Integumentary/Breasts: Skin/Breast: Reports system reviewed and no additional complaints, except as docu Neurologic: Reports system reviewed and no additional complaints, except as documented Psychiatric: Psychiatric: Reports no additional psychiatric complaints [facility] Past Medical History Medical History Adenomatous colon polyp Anxiety and depression Atrial fibrillation Bipolar 1 disorder CAD (coronary artery disease) 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 Repeat evaluation and was in 2017. Chronic back pain Chronic, continuous use of opioids Constipation due to opio
[2022-11-30 13:03] LABS: Troponin I < 0.012 ng/mL (0.000-0.034)
--- NOTE | 2022-11-30 14:10 | ADMGEN ---
This patient, Israel Plascencia Sr., was admitted to Intensive Care Unit-2 at 1405. Patient/family oriented to hospital policies and general routines including ID bracelet, bed and alarms, visiting hours, pain management, procedures, bathroom and other care routines, personal items, smoking policy, room service/diet, and visiting hours. Information on how to activate the Rapid Response Team has been discussed. Patient/Family are encouraged to report perceived risks to care and to ask questions if they do not understand what they are told or what they should do.
[2022-11-30 16:03] LABS: Troponin I < 0.012 ng/mL (0.000-0.034)
[2022-11-30 16:30] LABS: Alveolar/Arterial O2 Gradient 131.8 mmHg; Fractional Inspired Oxygen 40 %; HCO3 ABG 34.6 mEq/l (22.0-26.0); Oxygen Content ABG 17.4 %vol (16.0-22.0); Oxygen Saturation ABG 94.9 % (95.0-100.0); Oxyhemoglobin 93.6 % THb (90.0-100.0); PO2 ABG 79.9 mmHg (80.0-100.0); Total Hemoglobin 13.2 g/dL (12.0-18.0); pH ABG 7.352 (7.350-7.450)
[2022-11-30 16:31] LABS: Device NON-INVASIVE VENT; Modified Allen's Test Pass; PCO2 ABG 63.9 mmHg (35.0-45.0); Site Drawn RIGHT RADIAL
[2022-11-30 16:32] LABS: Non-Invasive Expiratory Pressure 6 CMH2O; Non-Invasive Inspiratory Pressure 14 CMH2O; Non-Invasive Vent Rate 16 /MIN
--- NOTE | 2022-11-30 16:39 | PM.CNPUL ---
Assessment and Plan Assessment and plan (1) Respiratory failure with hypercapnia: Qualifiers: Chronicity: acute on chronic Qualified Code(s): J96.22 - Acute and chronic respiratory failure with hypercapnia Code(s): J96.92 - Respiratory failure, unspecified with hypercapnia Status: Acute Assessment and Plan: This 66-year-old man with a history of a congestive heart failure, chronic hypercapnic respiratory failure which has been attributed to right hemidiaphragm paralysis and/or COPD presented with increasing shortness of breath cough and yellow sputum production and acute on chronic hypercapnic respiratory failure. The patient has been in the intensive care unit where he is currently on a BiPAP support 14/6 and 4% FiO2. On these settings repeat blood gases showed significant improvement of hypercapnic respiratory failure with a pH and a been in the normal range. Elevated pCO2 persists. Chest x-ray showed elevated R diaphragm as before and questionable right lower lobe infiltrate versus atelectasis. Plan: Continue with current BiPAP settings, monitor hemodynamic status O2 saturation. I have decreased the dose of IV steroids. Given history of cough with sputum production and questionable right lower lobe infiltrate will empirically cover patient with antibiotics for community-acquired pneumonia. The patient will need further workup with echocardiogram. add DVT prophylaxis. (2) Acute and chronic respiratory failure with hypercapnia: Code(s): J96.22 - Acute and chronic respiratory failure with hypercapnia Status: Acute (3) Chronic, continuous use of opioids: Code(s): F11.90 - Opioid use, unspecified, uncomplicated Status: Acute (4) Tobacco abuse: Code(s): Z72.0 - Tobacco use Status: Acute (5) Bipolar disorder: Code(s): F31.9 - Bipolar disorder, unspecified Status: Acute (6) Elevated diaphragm: Code(s): J98.6 - Disorders of diaphragm Status: Acute History of Present Illness History of Present Illness Consult date: 11/30/22 Chief complaint: COPD EXACERBATION,RESPIRATORY FAILURE Narrative: this 66-year-old man with history of hypercapnic hypoxemic respiratory failure presented with increasing shortness of breath. The patient was in his usual state of health until approximately several days ago when he started to have increasing shortness of breath. He also had cough with yellow sputum production. He had no fever chills hemoptysis chest pain. In the emergency room the patient was found to have acute on chronic hypercapnic respiratory failure and was placed on BiPAP support. He is currently in the intensive care unit on BiPAP 14/6 and FiO2 of 40%. Patient is awake answering simple questions. He appears to be a poor historian. A chest x-ray showed chronically elevated right diaphragm, possible right lower lobe infiltrate versus atelectasis. Past medical history is significant for psychiatric illness, also history of coronary artery disease with previous congestive heart failure. Review of previous records showed EF in the range of 25-30%. on last echocardiogram in May of this past year his EF was in the range of 45-50%. The patient is followed by Pulmonary Services at another facility. Over the last couple of years he has been hospitalized with hypercapnic respiratory failure at least twice. During last admission in May of past summer, he was placed on home ventilatory support, AVAPS with a tidal volume of 500 respiratory rate 18 EPAP 5-12 and 2 L per minute supplemental oxygen. It is unclear whether the patient is compliant with his home ventilator. He has not been seen in the pulmonary clinic for follow-up. Patient carries the diagnosis of COPD and has been on maintenance bronchodilators and short-acting bronchodilators. He is currently on IV steroids for possible COPD exacerbation. On last chest CT he had no evidence of emphysema. No pulmonary
[2022-11-30] MEDS: sulfaSALAzine 500 MG TABLET 1000 MG PO (17:10)
[2022-11-30] MEDS: VENLAFAXINE HCL XR 75 MG CAP.ER.24H 225 MG PO (17:10)
[2022-11-30] MEDS: carvediloL 25 MG TABLET PO (17:11)
[2022-11-30] MEDS: methylPREDNISolone SOD SUCC 125 MG VIAL 60 MG IV PUSH (17:13)
[2022-11-30 17:16] LABS: NT Pro B Type Natriuretic Pept 99 pg/mL (19.9-100)
[2022-11-30] MEDS: HYDROcodone/acetaminophen (*CRX) 5-325 MG TABLET 1 TAB PO ×2 (17:51→23:56)
[2022-11-30 18:31] LABS: Anion Gap 2 mmol/L (8-16); Blood Urea Nitrogen 3 mg/dL (9-20); Calcium 8.2 mg/dL (8.4-10.2); Carbon Dioxide 36 mmol/L (22-30); Chloride 91 mmol/L (98-107); Estimated CRCL calculation 84 ml/min; Estimated Glomerular Filt Rate > 60; Glucose 147 mg/dL (65-110); Potassium 4.4 mmol/L (3.4-5.0); Sodium 129 mmol/L (137-145)
[2022-11-30] MEDS: CYCLOBENZAPRINE HCL 10 MG TABLET PO (20:21)
[2022-11-30] MEDS: DOXYCYCLINE 100 MG/NS 100 ML 100 MG/100 ML BAG IVPB (20:21)
[2022-11-30] MEDS: MELATONIN 5 MG TABLET 10 MG PO (22:06)
[2022-12-01] VITALS (26 sets, daily range): BP systolic 99–126; BP diastolic 71–98; PULSE 94–118; RESP 18–26; TEMP 36–37.3; O2SAT 88–100
[2022-12-01] MEDS: ALBUTEROL SULFATE NEB 2.5 MG/3 ML INH 5 MG INHALATION ×3 (02:07→14:30)
[2022-12-01] MEDS: IPRATROPIUM BR 0.02% INH SOLN 0.5 MG/2.5 ML VIAL INHALATION ×4 (02:08→20:10)
[2022-12-01 03:22] LABS: Hematocrit 36.1 % (42.0-52.0); Hemoglobin 11.7 g/dL (14.0-18.0); Immature Granulocyte Absolute 0.02 K/mm3 (0.00-0.031); Immature Granulocyte Percent A 0.5 % (0-0.5); Lymphocytes Absolute Auto 1.05 K/mm3 (0.9-3.2); Lymphocytes Percent Auto 24.9 % (18.3-44.2); Mean Corpuscular HGB Conc 32.4 g/dl (32-36); Mean Corpuscular Hemoglobin 30.2 pg (26-34); Mean Corpuscular Volume 93.3 fl (80-100); Mean Platelet Volume 9.5 fl (7.4-10.4); Monocytes Absolute Auto 0.4 K/mm3 (0.1-0.6); Monocytes Percent Auto 9.5 % (2.6-8.5); Neutrophils Absolute Auto 2.7 K/mm3 (1.3-6.7); Neutrophils Percent Auto 65.1 % (45.5-73.1); Platelet Count Result 195 k/mm3 (150-375); Red Blood Count 3.87 M/mm3 (4.6-6.20); Red Cell Distribution Width 15.7 % (11.5-14.5); White Blood Count 4.2 K/mm3 (4.5-10.0)
[2022-12-01 03:41] LABS: Anion Gap 3 mmol/L (8-16); Blood Urea Nitrogen 7 mg/dL (9-20); Carbon Dioxide 33 mmol/L (22-30); Chloride 91 mmol/L (98-107); Estimated CRCL calculation 84 ml/min; Estimated Glomerular Filt Rate > 60; Glucose 107 mg/dL (65-110); Potassium 4.6 mmol/L (3.4-5.0); Sodium 127 mmol/L (137-145)
[2022-12-01] MEDS: CYCLOBENZAPRINE HCL 10 MG TABLET PO ×2 (04:36→13:00)
[2022-12-01] MEDS: FLUTICASONE/UMECLIDIN/VILANTER 100-62.5-25 MCG ELLIPTA 1 PUFF INHALATION (09:01)
[2022-12-01] MEDS: carvediloL 25 MG TABLET PO ×2 (09:36→16:53)
[2022-12-01] MEDS: ARIPiprazole 2 MG TABLET PO (09:37)
[2022-12-01] MEDS: FOLIC ACID 1 MG TABLET 3 MG PO (09:37)
[2022-12-01] MEDS: FUROSEMIDE 40 MG TABLET PO (09:37)
[2022-12-01] MEDS: POTASSIUM CHLORIDE 10 MEQ TABLET.ER PO (09:37)
[2022-12-01] MEDS: ATORVASTATIN 20 MG TABLET PO (09:37)
[2022-12-01] MEDS: lisinopriL 10 MG TABLET PO (09:38)
[2022-12-01] MEDS: sulfaSALAzine 500 MG TABLET 1000 MG PO ×2 (09:38→17:36)
[2022-12-01] MEDS: ASPIRIN 81 MG ENTERIC TABLET PO (09:38)
[2022-12-01] MEDS: methylPREDNISolone SOD SUCC 125 MG VIAL 60 MG IV PUSH ×2 (09:38→16:52)
[2022-12-01] MEDS: DOXYCYCLINE 100 MG/NS 100 ML 100 MG/100 ML BAG IVPB ×2 (09:39→20:47)
[2022-12-01] MEDS: HYDROcodone/acetaminophen (*CRX) 5-325 MG TABLET 1 TAB PO ×2 (09:45→14:56)
--- NOTE | 2022-12-01 10:30 | PC.NURSE ---
Christian reported back pain 06/22, [place] 5/325 po administered as prn.
[2022-12-01 10:35] LABS: Alveolar/Arterial O2 Gradient 98.7 mmHg; Base Excess ABG 8.3 mEq/l (+/-2.0); Fractional Inspired Oxygen 34 %; Oxygen Saturation ABG 92.1 % (95.0-100.0); Oxyhemoglobin 91.7 % THb (90.0-100.0); PO2 ABG 67.5 mmHg (80.0-100.0); PO2 FiO2 Ratio Arterial Blood 1.99 %; Total Hemoglobin 13.2 g/dL (12.0-18.0); pH ABG 7.359 (7.350-7.450)
[2022-12-01 10:39] LABS: Device NASAL CANNULA; Liters per Minute 3.5 LPM; Modified Allen's Test Pass; PCO2 ABG 65.4 mmHg (35.0-45.0); Site Drawn RIGHT RADIAL
--- NOTE | 2022-12-01 13:30 | PC.NURSE ---
Dr. Sosa called regarding continued, and increasing sinus tachycardia, and patient request to continue home pain medication - Percoset 10/[address] Sosa advised he will assess the patient soon. Will continue to monitor.
--- NOTE | 2022-12-01 15:00 | PC.NURSE ---
Patient reported back pain 05/22. [place] 5/325 po provided as available prn pain medication. Will continue to monitor.
--- NOTE | 2022-12-01 15:54 | PC.NURSE ---
Removed bipap per patient request, patient only tolerated 8 minutes, and then desaturated to 82 % on 4 l NC. Patient returned to bipap.
--- NOTE | 2022-12-01 16:43 | PM.IMPN ---
Progress Note: A&P Assessment and Plan (1) Acute and chronic respiratory failure with hypercapnia: Code(s): J96.22 - Acute and chronic respiratory failure with hypercapnia Status: Acute Assessment and Plan: Patient with acute on chronic respiratory failure. He uses oxygen with exertion while awake. He states he is compliant with BiPAP at night. Diffuse wheezing noted. Increased wheezing could be related to improved air exchange. Continue nebulizer treatments. He is tachycardic so will switch him to Xopenex. Continue Solu-Medrol. Pulmonary consulted and case was discussed with Pulmonary. Wean BiPAP as tolerated to nighttime use only. (2) Acute exacerbation of chronic obstructive pulmonary disease (COPD): Code(s): J44.1 - Chronic obstructive pulmonary disease with (acute) exacerbation Status: Acute Assessment and Plan: The patient typically wears oxygen at 2-3 L home with exertion. Patient with diffuse wheezing. Continue nebulizer treatments. Changed to Xopenex given the tachycardia. Continue steroids. Does have productive cough and it has been started on Rocephin and doxycycline. Chest x-ray was reviewed showing no acute findings. He has a chronic stable elevation the right hemidiaphragm. These findings were also noted by radiology. Check sputum. Will check on extremity venous Dopplers well. Consider CTA he is able. he is also on sulfasalazine for unclear reasons (psoriatic arthritis?) which can cause pulmonary toxicity. This was started about 1 year ago (3) Congestive heart failure: Code(s): I50.9 - Heart failure, unspecified Status: Acute Assessment and Plan: Last echo 05/27/2022 Showing EF 45-50% with grade 1 diastolic dysfunction. BNP was 99. Pet[place] unlikely that he has a CHF exacerbation. Will continue Coreg, Lasix and lisinopril. (4) Paroxysmal atrial fibrillation: Code(s): I48.0 - Paroxysmal atrial fibrillation Status: Acute Assessment and Plan: The patient is currently in sinus rhythm with sinus tachycardia. Change to Xopenex. Continue Metoprolol. Not on DOAC for unclear reasons (d/c note from 05/31/22 states due to fall risk). Continue Coreg (5) CAD (coronary artery disease): Code(s): I25.10 - Atherosclerotic heart disease of [place] coronary artery without angina pectoris Status: Chronic Assessment and Plan: No CP. EKG showing no acute findings. Continue with Coreg, aspirin, and Lipitor (6) HTN (hypertension): Code(s): I10 - Essential (primary) hypertension Status: Chronic Assessment and Plan: Patient's blood pressure was reviewed on 12/01 Blood pressure remains well controlled. Will continue current medications. Subjective Date/time seen: 12/01/22 16:43 Interval history: 66yo male with with COPD and chronic respiratory failure here for shortness of breath. SOB better overall. Was able to come off the BiPAP for lunch for about an hour. No CP. He wears Bipap at night and is compliant. He wears 3 L of oxygen with exertion during the day but is on room air at rest. Minimal cough productive yellow sputum. Exam Narrative: AF 98.4 123/87 118 22 97% bipap Gen - mildly tachypneic with bipap in place Chest - diffuse expiratory wheezes CV - tachycardic, regular; Tele showing sinus tachycardia Abd - Soft, protuberant, +BS Ext - No pedal edema. 2+ DP pulses bilaterally Neuro - Alert and oriented. Nonfocal exam. Psych - Nml mood and affect Skin - Warm and dry Objective Data Vital Signs Vital Signs: Vital Signs - 24 hr 11/30/22 17:11 11/30/22 17:43 11/30/22 18:00 Temperature Pulse Rate 108 H 102 H 94 Respiratory Rate 24 H Blood Pressure Pulse Oximetry 96 Oxygen Delivery BiPAP Fraction of Inspired Oxygen 11/30/22 20:00 11/30/22 20:00 11/30/22 22:00 Temperature 97.7 F Pulse Rate 92 92 99 Respiratory Rate 19 Blood Pressure 112/74
--- NOTE | 2022-12-01 18:44 | PM.PNPUL ---
Progress Note: A&P Assessment and Plan (1) Elevated diaphragm: Code(s): J98.6 - Disorders of diaphragm Status: Acute (2) Respiratory failure with hypercapnia: Qualifiers: Chronicity: acute on chronic Qualified Code(s): J96.22 - Acute and chronic respiratory failure with hypercapnia Code(s): J96.92 - Respiratory failure, unspecified with hypercapnia Status: Acute Assessment and Plan: 66-year-old man with chronic hypercapnic hypoxemic respiratory failure on home ventilatory support via trilogy ventilator presented with acute on chronic hypercapnic respiratory failure. Patient has been treated with BiPAP support with significant improvement of his gas exchange over the last 24 hours. patient carries the diagnosis of COPD and has been on treatment with maintenance bronchodilators. No previous pulmonary function testing is available. Chest imaging studies have shown chronically elevated right hemidiaphragm, highly suggestive of right diaphragm paralysis. patient has history of orthopnea unable to sleep in supine position at home. During today's exam while on nasal cannula he tolerated the supine position for approximately 30 seconds only, due to shortness of breath. Om inspection, he had marked abdominal paradox suggestive of bilateral diaphragmatic weakness most likely, although the left diaphragm does not appear to be that elevated on chest imaging studies. Patient stated that he has been using the home ventilatory support every night at home. At this point, we will continue to treat the patient with current regimen of IV steroids at a lower dose, antibiotics as prescribed, DVT prophylaxis, short-acting bronchodilators, and BiPAP support. Need to get previous medical records from [facility]. (3) Acute and chronic respiratory failure with hypercapnia: Code(s): J96.22 - Acute and chronic respiratory failure with hypercapnia Status: Acute Subjective Date/time seen: 12/01/22 18:44 Interval history: Patient was doing better today. Used BiPAP support all night last night. He stated he has been using his home ventilatory support every night. He is followed by computer networking instructor in [place]. Patient has been on medications for COPD. He also has history of psoriatic arthritis probably on anti TNF agent weekly. In the past he had history of a MRSA infection. Review of Systems Review of Systems: All systems reviewed & are unremarkable except as noted in HPI and below ( In HPI and below) Exam Narrative: GENERAL APPEARANCE: Well developed, well nourished, alert and cooperative, and appears to be in mild respiratory distress while on nasal cannula SKIN: Inspection of the skin reveals no rashes, ulcerations or petechiae. HEENT: Sclerae anicteric and conjunctivae pink and moist. Extraocular movements were intact and pupils were equal, round, and reactive to light. The oral mucosa, hard and soft palate, tongue and posterior pharynx were normal. NECK: Supple. There was no thyroid enlargement, and no tenderness, or masses were felt. CHEST: Normal AP diameter and normal contour without any kyphoscoliosis. LUNGS: mild wheezing bilaterally more on left CARDIAC: There was a regular rate and rhythm without any murmurs. ABDOMEN: patient was examined in supine position he had significant abdominal paradox able to tolerate the supine position only for less than a minute. Abdomen soft nontender no organomegaly LYMPH NODES: No lymphadenopathy was appreciated in the neck. EXTREMITIES: No cyanosis, clubbing or edema. NEUROLOGIC: Alert and oriented x 3. Normal affect. Objective Data Vital Signs Vital Signs: Vital Signs - 24 hr 11/30/22 20:00 11/30/22 20:00 11/30/22 22:00 Temperature 36.5 C Pulse Rate 92 92 99 Respiratory Rate 19 Blood Pressure 112/74 Pulse Oximetry 96 Oxygen Delivery Fraction of Inspired Oxygen 12/01/22 00:00 12/01/22 00:00 12/01/22 00:00 T
[2022-12-02] VITALS (26 sets, daily range): BP systolic 111–138; BP diastolic 69–85; PULSE 94–117; RESP 16–35; TEMP 35.8–36.8; O2SAT 96–100
[2022-12-02] MEDS: MELATONIN 5 MG TABLET 10 MG PO ×2 (00:57→22:44)
[2022-12-02] MEDS: IPRATROPIUM BR 0.02% INH SOLN 0.5 MG/2.5 ML VIAL INHALATION ×4 (02:16→21:01)
[2022-12-02 03:55] LABS: Basophils Percent Auto 0.1 % (0.2-1.2); Hematocrit 36.7 % (42.0-52.0); Hemoglobin 11.4 g/dL (14.0-18.0); Immature Granulocyte Absolute 0.03 K/mm3 (0.00-0.031); Immature Granulocyte Percent A 0.4 % (0-0.5); Lymphocytes Absolute Auto 1.05 K/mm3 (0.9-3.2); Lymphocytes Percent Auto 14.4 % (18.3-44.2); Mean Corpuscular HGB Conc 31.1 g/dl (32-36); Mean Corpuscular Hemoglobin 29.8 pg (26-34); Mean Corpuscular Volume 95.8 fl (80-100); Mean Platelet Volume 10.4 fl (7.4-10.4); Monocytes Absolute Auto 0.8 K/mm3 (0.1-0.6); Monocytes Percent Auto 11.1 % (2.6-8.5); Neutrophils Absolute Auto 5.4 K/mm3 (1.3-6.7); Platelet Count Result 176 k/mm3 (150-375); Red Blood Count 3.83 M/mm3 (4.6-6.20); Red Cell Distribution Width 15.6 % (11.5-14.5); White Blood Count 7.3 K/mm3 (4.5-10.0)
[2022-12-02 04:17] LABS: Alanine Aminotransferase 32 U/L (6-50); Albumin Level 3.3 g/dL (3.5-5.1); Alkaline Phosphatase 96 U/L (38-126); Anion Gap 6 mmol/L (8-16); Aspartate Amino Transferase 44 U/L (17-59); Bilirubin,Total 0.3 mg/dL (0.2-1.3); Blood Urea Nitrogen 28 mg/dL (9-20); Calcium 7.9 mg/dL (8.4-10.2); Carbon Dioxide 34 mmol/L (22-30); Chloride 93 mmol/L (98-107); Estimated CRCL calculation 66 ml/min; Estimated Glomerular Filt Rate > 60; Glucose 165 mg/dL (65-110); Magnesium 1.9 mg/dL (1.6-2.3); Phosphorus 4.3 mg/dL (2.5-4.5); Potassium 5.3 mmol/L (3.4-5.0); Sodium 133 mmol/L (137-145)
[2022-12-02] MEDS: FLUTICASONE/UMECLIDIN/VILANTER 100-62.5-25 MCG ELLIPTA 1 PUFF INHALATION (07:42)
[2022-12-02] MEDS: POTASSIUM CHLORIDE 10 MEQ TABLET.ER PO (08:17)
[2022-12-02] MEDS: lisinopriL 10 MG TABLET PO (08:17)
[2022-12-02] MEDS: carvediloL 25 MG TABLET PO ×2 (08:17→16:54)
[2022-12-02] MEDS: ASPIRIN 81 MG ENTERIC TABLET PO (08:17)
[2022-12-02] MEDS: VENLAFAXINE HCL XR 75 MG CAP.ER.24H 225 MG PO (08:17)
[2022-12-02] MEDS: methylPREDNISolone SOD SUCC 125 MG VIAL 60 MG IV PUSH (08:18)
[2022-12-02] MEDS: FUROSEMIDE 40 MG TABLET PO (08:18)
[2022-12-02] MEDS: FOLIC ACID 1 MG TABLET 3 MG PO (08:18)
[2022-12-02] MEDS: sulfaSALAzine 500 MG TABLET 1000 MG PO ×2 (08:18→16:55)
[2022-12-02] MEDS: ATORVASTATIN 20 MG TABLET PO (08:18)
[2022-12-02] MEDS: ARIPiprazole 2 MG TABLET PO (08:18)
[2022-12-02] MEDS: DOXYCYCLINE 100 MG/NS 100 ML 100 MG/100 ML BAG IVPB ×2 (08:19→21:21)
--- NOTE | 2022-12-02 09:22 | PM.PNPUL ---
Progress Note: A&P Assessment and Plan (1) Elevated diaphragm: Code(s): J98.6 - Disorders of diaphragm Status: Acute (2) Respiratory failure with hypercapnia: Qualifiers: Chronicity: acute on chronic Qualified Code(s): J96.22 - Acute and chronic respiratory failure with hypercapnia Code(s): J96.92 - Respiratory failure, unspecified with hypercapnia Status: Acute Assessment and Plan: 66-year-old man with chronic hypercapnic hypoxemic respiratory failure on home ventilatory support via trilogy ventilator presented with acute on chronic hypercapnic respiratory failure. Patient has been treated with BiPAP support with significant improvement of his gas exchange over the last 24 hours. patient carries the diagnosis of COPD and has been on treatment with maintenance bronchodilators. No previous pulmonary function testing is available. Chest imaging studies have shown chronically elevated right hemidiaphragm, highly suggestive of right diaphragm paralysis. patient has history of orthopnea unable to sleep in supine position at home. During today's exam while on nasal cannula he tolerated the supine position little longer than yesterday. on physical exam he had minimal expiratory wheezing, significantly improved from previous day Plan: out of bed to chair monitor respiratory status repeat blood gases on nasal cannula in early p.m., , BiPAP support at night and p.r.n. during the day, continue with current antibiotics short-acting bronchodilators DVT prophylaxis. was switched to oral steroids starting in a.m. (3) Acute and chronic respiratory failure with hypercapnia: Code(s): J96.22 - Acute and chronic respiratory failure with hypercapnia Status: Acute Subjective Date/time seen: 12/02/22 09:22 Interval history: patient doing better. He appears fully alert, currently on nasal cannula while sitting up in bed. Used BiPAP support last night. Has less shortness of breath than before. Afebrile Review of Systems Review of Systems: All systems reviewed & are unremarkable except as noted in HPI and below ( In HPI and below) Exam Narrative: GENERAL APPEARANCE: Well developed, well nourished, alert and cooperative, and appears to be in mild respiratory distress while on nasal cannula SKIN: Inspection of the skin reveals no rashes, ulcerations or petechiae. HEENT: Sclerae anicteric and conjunctivae pink and moist. Extraocular movements were intact and pupils were equal, round, and reactive to light. The oral mucosa, hard and soft palate, tongue and posterior pharynx were normal. NECK: Supple. There was no thyroid enlargement, and no tenderness, or masses were felt. CHEST: Normal AP diameter and normal contour without any kyphoscoliosis. LUNGS: mild wheezing bilaterally more on left CARDIAC: There was a regular rate and rhythm without any murmurs. ABDOMEN: patient was examined in supine position. abdominal paradox still present. Abdomen soft nontender no organomegaly LYMPH NODES: No lymphadenopathy was appreciated in the neck. EXTREMITIES: No cyanosis, clubbing or edema. NEUROLOGIC: Alert and oriented x 3. Normal affect. Objective Data Vital Signs Vital Signs: Vital Signs - 24 hr 12/01/22 09:36 12/01/22 10:00 12/01/22 11:59 Temperature Pulse Rate 115 H 111 H 114 H Respiratory Rate 26 H Blood Pressure Pulse Oximetry 96 Oxygen Delivery BiPAP Fraction of Inspired Oxygen 12/01/22 12:00 12/01/22 12:00 12/01/22 12:00 Temperature 36.9 C Pulse Rate 114 H 115 H 115 H Respiratory Rate 22 H 20 Blood Pressure 99/87 L Pulse Oximetry 95 95 Oxygen Delivery BiPAP Fraction of Inspired Oxygen 40 12/01/22 13:30 12/01/22 14:32 12/01/22 14:32 Temperature Pulse Rate 117 H 115 H 115 H Respiratory Rate 20 18 18 Blood Pressure 123/87 Pulse Oximetry 96 95 Oxygen Delivery BiPAP Fraction of Inspired Oxygen 12/01/22 14:00 12/01/22 15:25 01
--- NOTE | 2022-12-02 15:37 | PM.IMPN ---
Progress Note: A&P Assessment and Plan (1) Acute and chronic respiratory failure with hypercapnia: Code(s): J96.22 - Acute and chronic respiratory failure with hypercapnia Status: Acute Assessment and Plan: Patient with acute on chronic respiratory failure. At home, he uses oxygen with exertion but room air at rest. He states he is compliant with BiPAP at night. Diffuse wheezing noted yesterday but better today. Able to tolerate time off the BiPAP. Continue nebulizer treatments. Continue Solu-Medrol. Pulmonary consulted and case was discussed with Pulmonary. Wean BiPAP as tolerated to nighttime use only as tolerated. (2) Acute exacerbation of chronic obstructive pulmonary disease (COPD): Code(s): J44.1 - Chronic obstructive pulmonary disease with (acute) exacerbation Status: Acute Assessment and Plan: The patient typically wears oxygen at 2-3 L home with exertion. Currently on BiPAP but tolerating time off the mask. -CXR showing elevated right hemidiaphragm (old) o/w clear. -LE venous doppler negative for DVT -Also on sulfasalazine for unclear reasons (psoriatic arthritis?) which can cause pulmonary toxicity. This was started about 1 year ago -Does have productive cough and was started on Rocephin and doxycycline. -BCx NGTD. MRSA nasal swab pending -Continue nebulizer treatments. -Continue steroids and abx (3) Congestive heart failure: Code(s): I50.9 - Heart failure, unspecified Status: Acute Assessment and Plan: Last echo 05/27/2022 Showing EF 45-50% with grade 1 diastolic dysfunction. BNP was 99. [place] unlikely that he has a CHF exacerbation. Continue Coreg, Lasix and lisinopril. (4) Paroxysmal atrial fibrillation: Code(s): I48.0 - Paroxysmal atrial fibrillation Status: Acute Assessment and Plan: The patient is currently in sinus rhythm with sinus tachycardia. Changed to Xopenex. Continue Metoprolol. Not on DOAC for unclear reasons (d/c note from 05/31/22 states due to fall risk). Continue Coreg (5) CAD (coronary artery disease): Code(s): I25.10 - Atherosclerotic heart disease of [place] coronary artery without angina pectoris Status: Chronic Assessment and Plan: No CP. EKG showing no acute findings. Continue with Coreg, aspirin, and Lipitor (6) HTN (hypertension): Code(s): I10 - Essential (primary) hypertension Status: Chronic Assessment and Plan: Patient's blood pressure was reviewed on 12/02 Blood pressure remains well controlled. Will continue current medications. Plan Hyperkalemia -potassium 5.3. This could be a lab error. Will repeat. Hyponatremia -sodium is improved. Continue to monitor. Subjective Date/time seen: 12/02/22 15:37 Interval history: 66yo male with with COPD and chronic respiratory failure here for shortness of breath. Cough is better. Still on BiPAP but able to come off BiPAP for about 1.5 hours today. Able to tolerate oral intake. Exam Narrative: AF 97.7 123/82 96 19 100% bipap Gen - NARD, comfortable sleeping on bipap Chest - mildly coarse BS but decreased wheezing, nml RR CV - RRR; Tele showing no significant dysrhythmias Abd - Soft, NT/ND, +BS Ext - No pedal edema Psych - Nml mood and affect Skin - Warm and dry Objective Data Vital Signs Vital Signs: Vital Signs - 24 hr 12/01/22 16:00 12/01/22 16:00 12/01/22 16:53 Temperature Pulse Rate 116 H 113 H 118 H Respiratory Rate 22 H Blood Pressure Pulse Oximetry 97 Oxygen Delivery BiPAP Fraction of Inspired Oxygen 40 12/01/22 16:00 12/01/22 18:00 12/01/22 20:10 Temperature 99.1 F Pulse Rate 118 H 101 H 105 H Respiratory Rate 24 H 20 Blood Pressure 118/81 Pulse Oximetry 99 97 Oxygen Delivery BiPAP Fraction of Inspired Oxygen 12/01/22 20:10 12/01/22 20:10 12/01/22 20:42 Temperature Pulse Rate 105 H 105 H 110 H Respiratory Rate 20 20 22 H
[2022-12-02 17:40] LABS: Potassium 4.3 mmol/L (3.4-5.0)
[2022-12-02] MEDS: ALBUTEROL SULFATE NEB 2.5 MG/3 ML INH 5 MG INHALATION (21:01)
--- NOTE | 2022-12-02 21:42 | PCRCNOTE ---
2049 RT was not called when pt was placed on BIPAP.
[2022-12-03] VITALS (19 sets, daily range): BP systolic 121–141; BP diastolic 81–98; PULSE 96–120; RESP 15–32; TEMP 36.1–36.9; O2SAT 92–100
[2022-12-03] MEDS: IPRATROPIUM BR 0.02% INH SOLN 0.5 MG/2.5 ML VIAL INHALATION ×4 (02:55→20:47)
[2022-12-03 04:50] LABS: Hemoglobin 11.8 g/dL (14.0-18.0); Mean Corpuscular HGB Conc 31.1 g/dl (32-36); Mean Corpuscular Hemoglobin 30.4 pg (26-34); Mean Corpuscular Volume 97.9 fl (80-100); Mean Platelet Volume 10.1 fl (7.4-10.4); Platelet Count Result 187 k/mm3 (150-375); Red Blood Count 3.88 M/mm3 (4.6-6.20); Red Cell Distribution Width 15.9 % (11.5-14.5); White Blood Count 8.4 K/mm3 (4.5-10.0)
[2022-12-03 05:00] LABS: Blood Urea Nitrogen 22 mg/dL (9-20); Calcium 8.2 mg/dL (8.4-10.2); Carbon Dioxide > 40 mmol/L (22-30); Chloride 88 mmol/L (98-107); Estimated CRCL calculation 60 ml/min; Estimated Glomerular Filt Rate > 60; Glucose 82 mg/dL (65-110); Potassium 4.1 mmol/L (3.4-5.0); Sodium 133 mmol/L (137-145)
[2022-12-03] MEDS: oxyCODONE/ACETAMINOPHEN (*CRX) 10-325 MG TABLET 1 TAB PO ×2 (06:47→22:15)
[2022-12-03] MEDS: POTASSIUM CHLORIDE 10 MEQ TABLET.ER PO (08:21)
[2022-12-03] MEDS: ATORVASTATIN 20 MG TABLET PO (08:21)
[2022-12-03] MEDS: ARIPiprazole 2 MG TABLET PO (08:21)
[2022-12-03] MEDS: lisinopriL 10 MG TABLET PO (08:21)
[2022-12-03] MEDS: ASPIRIN 81 MG ENTERIC TABLET PO (08:21)
[2022-12-03] MEDS: carvediloL 25 MG TABLET PO ×2 (08:21→17:00)
[2022-12-03] MEDS: FOLIC ACID 1 MG TABLET 3 MG PO (08:21)
[2022-12-03] MEDS: FUROSEMIDE 40 MG TABLET PO (08:22)
[2022-12-03] MEDS: VENLAFAXINE HCL XR 75 MG CAP.ER.24H 225 MG PO (08:22)
[2022-12-03] MEDS: sulfaSALAzine 500 MG TABLET 1000 MG PO (08:22)
[2022-12-03] MEDS: predniSONE 20 MG TABLET 40 MG PO (08:23)
[2022-12-03] MEDS: DOXYCYCLINE 100 MG/NS 100 ML 100 MG/100 ML BAG IVPB ×2 (08:23→22:14)
--- NOTE | 2022-12-03 09:03 | PC.NURSE ---
pt on 4LNC while eating breakfast this morning. Sating well. After pt finished eating, pt requested to be placed back on the Bipap. This RN encouraged pt to stay off the bipap for a while longer since he is tolerating it. Pt declined and stated he wanted to take a nap and will take bipap off in an hour. Pt placed on Bipap per request. Pt resting with eyes closed at this time. Will further encourage and educate pt.
--- NOTE | 2022-12-03 10:27 | PM.PNPUL ---
Progress Note: A&P Assessment and Plan (1) Elevated diaphragm: Code(s): J98.6 - Disorders of diaphragm Status: Acute (2) Respiratory failure with hypercapnia: Qualifiers: Chronicity: acute on chronic Qualified Code(s): J96.22 - Acute and chronic respiratory failure with hypercapnia Code(s): J96.92 - Respiratory failure, unspecified with hypercapnia Status: Acute Assessment and Plan: 66-year-old man with chronic hypercapnic hypoxemic respiratory failure on home ventilatory support via trilogy ventilator presented with acute on chronic hypercapnic respiratory failure. Patient has been treated with BiPAP support with significant improvement of his gas exchange over the last 24 hours. patient carries the diagnosis of COPD and has been on treatment with maintenance bronchodilators. No previous pulmonary function testing is available. Chest imaging studies have shown chronically elevated right hemidiaphragm, highly suggestive of right diaphragm paralysis. patient has history of orthopnea unable to sleep in supine position at home. on physical exam he had worse respiratory wheezing than yesterday which explains his desire to continue to use BiPAP this a.m.. Chest x-ray done this a.m. showed no new changes. Plan: Patient was switched back to IV steroids, continue with antibiotics and nebulized short-acting bronchodilators. Out of bed to chair if tolerated; continue with DVT prophylaxis (3) Acute and chronic respiratory failure with hypercapnia: Code(s): J96.22 - Acute and chronic respiratory failure with hypercapnia Status: Acute Subjective Date/time seen: 12/03/22 10:27 Interval history: patient has no new respiratory symptoms. He did not want to get off BiPAP support this morning. Afebrile Review of Systems Review of Systems: All systems reviewed & are unremarkable except as noted in HPI and below ( HPI and below.) Exam Narrative: GENERAL APPEARANCE: Well developed, well nourished, alert and cooperative, and appears to be in mild respiratory distress while on BiPAP support SKIN: Inspection of the skin reveals no rashes, ulcerations or petechiae. HEENT: Sclerae anicteric and conjunctivae pink and moist. Extraocular movements were intact and pupils were equal, round, and reactive to light. The oral mucosa, hard and soft palate, tongue and posterior pharynx were normal. NECK: Supple. There was no thyroid enlargement, and no tenderness, or masses were felt. CHEST: Normal AP diameter and normal contour without any kyphoscoliosis. LUNGS: worse wheezing bilaterally than yesterday CARDIAC: There was a regular rate and rhythm without any murmurs. ABDOMEN: patient was examined in supine position. abdominal paradox still present. Abdomen soft nontender no organomegaly LYMPH NODES: No lymphadenopathy was appreciated in the neck. EXTREMITIES: No cyanosis, clubbing or edema. NEUROLOGIC: Alert and oriented x 3. Normal affect. Objective Data Vital Signs Vital Signs: Vital Signs - 24 hr 12/02/22 12:00 12/02/22 12:00 12/02/22 12:00 Temperature 36.5 C Pulse Rate 98 96 98 Respiratory Rate 16 16 Blood Pressure 123/82 Pulse Oximetry 100 100 Oxygen Delivery BiPAP Oxygen Flow Rate Fraction of Inspired Oxygen 40 12/02/22 10:34 12/02/22 13:46 12/02/22 13:47 Temperature Pulse Rate 103 H 102 H 102 H Respiratory Rate 23 H 19 19 Blood Pressure Pulse Oximetry 97 100 Oxygen Delivery BiPAP BiPAP Oxygen Flow Rate Fraction of Inspired Oxygen 12/02/22 13:59 12/02/22 14:00 12/02/22 16:54 Temperature Pulse Rate 103 H 96 101 H Respiratory Rate Blood Pressure Pulse Oximetry Oxygen Delivery Oxygen Flow Rate Fraction of Inspired Oxygen 12/02/22 16:00 12/02/22 16:00 12/02/22 16:00 Temperature 36.4 C Pulse Rate 107 H 107 H 107 H Respiratory Rate 21 H 21 H Blood Pressure 123/84 Pulse Oximetry 99 99 [employer]
--- NOTE | 2022-12-03 11:00 | PM.IMPN ---
Progress Note: A&P Assessment and Plan (1) Acute and chronic respiratory failure with hypercapnia: Code(s): J96.22 - Acute and chronic respiratory failure with hypercapnia Status: Acute Assessment and Plan: Patient with acute on chronic respiratory failure. At home, he uses oxygen with exertion but room air at rest and has BiPAP. He states he is compliant with BiPAP at night. CT chest in 2020 showing right elevation of hemidiaphragm. Diffuse wheezing noted still. Able to tolerate time off the BiPAP. Continue nebulizer treatments. Was changed to prednisone but now back on Solu-Medrol. Pulmonary consulted and case was discussed with Pulmonary. Wean BiPAP as tolerated to nighttime use only as tolerated. Start PT/OT. Increase activity. (2) Acute exacerbation of chronic obstructive pulmonary disease (COPD): Code(s): J44.1 - Chronic obstructive pulmonary disease with (acute) exacerbation Status: Acute Assessment and Plan: The patient typically wears oxygen at 2-3 L home with exertion. Currently on BiPAP but tolerating time off -CXR showing elevated right hemidiaphragm (old) o/w clear. -LE venous doppler negative for DVT -Also on sulfasalazine for unclear reasons (psoriatic arthritis?) which can cause pulmonary toxicity. This was started about 1 year ago -Does have productive cough and was started on Rocephin and doxycycline. -BCx NGTD. MRSA nasal swab negative. Sputum not yet collected -Continue nebulizer treatments. -Continue steroids and abx (3) Congestive heart failure: Code(s): I50.9 - Heart failure, unspecified Status: Acute Assessment and Plan: Last echo 05/27/2022 Showing EF 45-50% with grade 1 diastolic dysfunction. BNP was 99. [place] unlikely that he has a CHF exacerbation. Continue Coreg, Lasix and lisinopril. (4) Paroxysmal atrial fibrillation: Code(s): I48.0 - Paroxysmal atrial fibrillation Status: Acute Assessment and Plan: The patient is currently in sinus rhythm with sinus tachycardia. Changed to Xopenex. Not on DOAC for unclear reasons (d/c note from 05/31/22 states due to fall risk). Continue Coreg. (5) CAD (coronary artery disease): Code(s): I25.10 - Atherosclerotic heart disease of [place] coronary artery without angina pectoris Status: Chronic Assessment and Plan: No CP. EKG showing no acute findings. Continue with Coreg, aspirin, and Lipitor (6) HTN (hypertension): Code(s): I10 - Essential (primary) hypertension Status: Chronic Assessment and Plan: Patient's blood pressure was reviewed on 12/03 Blood pressure remains well controlled. Will continue current medications. Plan Hyperkalemia -potassium 5.3. Repeat was normal. This could be a lab error. Follow Hyponatremia -sodium stable. Continue to monitor. Rash - probably related to bed rest and more of a contact rash. Follow. Increase time out of bed Subjective Date/time seen: 12/03/22 11:00 Interval history: 66yo male with with COPD and chronic respiratory failure here for shortness of breath. Off BiPAP this morning and tolerating oral intake. No n/v. Eating well. No CP. No issues overnight. He did sleep poorly and feels his days/nights mixed up. Rash noted that is pruritic. Has pain in chest with cough productive of yellow sputum. Exam Narrative: AF135/86 98 21 100% bipap Gen - NARD sitting at the side of the bed Chest - distant BS with faint wheezing (more prominent anteriorly), nml RR CV - RRR; Tele showing no significant dysrhythmias Abd - Soft, NT/ND, +BS Ext - No pedal edema Psych - Nml mood and affect Skin - red macula confluent rash on his back. Objective Data Vital Signs Vital Signs: Vital Signs - 24 hr 12/02/22 12:00 12/02/22 12:00 12/02/22 12:00 Temperature 97.7 F Pulse Rate 98 96 98 Respiratory Rate 16 16 Blood Pressure 123/82 Pulse Oximetry 100 100 Oxygen Delivery BiPAP Ox
[2022-12-03] MEDS: ENOXAPARIN 40 MG/0.4 ML SYRINGE SUB-Q (11:16)
[2022-12-03] MEDS: methylPREDNISolone SOD SUCC 125 MG VIAL 60 MG IV PUSH ×2 (14:42→22:14)
--- NOTE | 2022-12-03 19:28 | PC.NURSE ---
1740- received pt form ICU to room 212-pt awake - place on BIPAP once he arrived into room at pt request, spo2 100% monitor ST 100's denies pain-
[2022-12-03] MEDS: MELATONIN 5 MG TABLET 10 MG PO (22:15)
[2022-12-03] MEDS: CYCLOBENZAPRINE HCL 10 MG TABLET PO (22:16)
[2022-12-04] VITALS (32 sets, daily range): BP systolic 98–143; BP diastolic 63–92; PULSE 78–120; RESP 16–26; TEMP 35.5–36.8; O2SAT 94–100
[2022-12-04] MEDS: IPRATROPIUM BR 0.02% INH SOLN 0.5 MG/2.5 ML VIAL INHALATION ×4 (02:08→19:40)
[2022-12-04] MEDS: methylPREDNISolone SOD SUCC 125 MG VIAL 60 MG IV PUSH ×2 (06:23→21:32)
[2022-12-04] MEDS: VENLAFAXINE HCL XR 75 MG CAP.ER.24H 225 MG PO (08:16)
[2022-12-04] MEDS: ENOXAPARIN 40 MG/0.4 ML SYRINGE SUB-Q (08:16)
[2022-12-04] MEDS: POTASSIUM CHLORIDE 10 MEQ TABLET.ER PO (08:16)
[2022-12-04] MEDS: FOLIC ACID 1 MG TABLET 3 MG PO (08:17)
[2022-12-04] MEDS: carvediloL 25 MG TABLET PO ×2 (08:17→17:32)
[2022-12-04] MEDS: ASPIRIN 81 MG ENTERIC TABLET PO (08:17)
[2022-12-04] MEDS: ARIPiprazole 2 MG TABLET PO (08:17)
[2022-12-04] MEDS: FUROSEMIDE 40 MG TABLET PO (08:18)
[2022-12-04] MEDS: sulfaSALAzine 500 MG TABLET 1000 MG PO ×2 (08:18→17:32)
[2022-12-04] MEDS: ATORVASTATIN 20 MG TABLET PO (08:18)
[2022-12-04] MEDS: lisinopriL 10 MG TABLET PO (08:19)
[2022-12-04] MEDS: DOXYCYCLINE 100 MG/NS 100 ML 100 MG/100 ML BAG IVPB ×2 (08:22→21:31)
[2022-12-04] MEDS: FLUTICASONE/UMECLIDIN/VILANTER 100-62.5-25 MCG ELLIPTA 1 PUFF INHALATION (08:51)
--- NOTE | 2022-12-04 11:22 | PM.PNPUL ---
Progress Note: A&P Assessment and Plan (1) Elevated diaphragm: Code(s): J98.6 - Disorders of diaphragm Status: Acute (2) Respiratory failure with hypercapnia: Qualifiers: Chronicity: acute on chronic Qualified Code(s): J96.22 - Acute and chronic respiratory failure with hypercapnia Code(s): J96.92 - Respiratory failure, unspecified with hypercapnia Status: Acute Assessment and Plan: 66-year-old man with chronic hypercapnic hypoxemic respiratory failure on home ventilatory support via trilogy ventilator presented with acute on chronic hypercapnic respiratory failure. patient has evidence of a right hemidiaphragm weakness but his presentation and also clinical course during this hospitalization suggest COPD. Patient improved initially with IV steroids nebulized short-acting bronchodilators and when his steroids were decreased he developed more wheezing bilaterally. Over the last 2 days he has been back on higher dose of IV steroids. Currently his respiratory status is improved. Plan: Will continue with IV steroids at lower dose starting today. BiPAP support at night and p.r.n. during the day. He is not ready to be discharged as yet. (3) Acute and chronic respiratory failure with hypercapnia: Code(s): J96.22 - Acute and chronic respiratory failure with hypercapnia Status: Acute Subjective Date/time seen: 12/04/22 11:22 Interval history: Patient doing better. Used BiPAP support last night, on nasal cannula this a.m.. Has less shortness of breath. Review of Systems Review of Systems: All systems reviewed & are unremarkable except as noted in HPI and below ( HPI and below.) Exam Narrative: GENERAL APPEARANCE: Well developed, well nourished, alert and cooperative, and appears to be in mild respiratory distress while on BiPAP support SKIN: Inspection of the skin reveals no rashes, ulcerations or petechiae. HEENT: Sclerae anicteric and conjunctivae pink and moist. Extraocular movements were intact and pupils were equal, round, and reactive to light. The oral mucosa, hard and soft palate, tongue and posterior pharynx were normal. NECK: Supple. There was no thyroid enlargement, and no tenderness, or masses were felt. CHEST: Normal AP diameter and normal contour without any kyphoscoliosis. LUNGS: Less wheezing bilaterally than yesterday CARDIAC: There was a regular rate and rhythm without any murmurs. ABDOMEN: patient was examined in supine position. abdominal paradox still present. Abdomen soft nontender no organomegaly LYMPH NODES: No lymphadenopathy was appreciated in the neck. EXTREMITIES: No cyanosis, clubbing or edema. NEUROLOGIC: Alert and oriented x 3. Normal affect. Objective Data Vital Signs Vital Signs: Vital Signs - 24 hr 12/03/22 11:29 12/03/22 12:00 12/03/22 12:00 Temperature Pulse Rate 97 102 H Respiratory Rate 18 Blood Pressure Pulse Oximetry 100 Oxygen Delivery BiPAP BiPAP Oxygen Flow Rate Fraction of Inspired Oxygen 40 12/03/22 12:00 12/03/22 14:00 12/03/22 14:00 Temperature 36.5 C Pulse Rate 100 101 H 101 H Respiratory Rate 18 17 17 Blood Pressure 121/83 Pulse Oximetry 99 100 Oxygen Delivery BiPAP Oxygen Flow Rate Fraction of Inspired Oxygen 12/03/22 14:19 12/03/22 14:00 12/03/22 16:00 Temperature Pulse Rate 106 H 117 H Respiratory Rate 23 H Blood Pressure Pulse Oximetry 100 Oxygen Delivery Nasal Cannula Oxygen Flow Rate 5 Fraction of Inspired Oxygen 12/03/22 16:00 12/03/22 17:00 12/03/22 17:30 Temperature 36.9 C Pulse Rate 106 H 114 H 120 H Respiratory Rate 18 28 H Blood Pressure 137/85 Pulse Oximetry 100 100 Oxygen Delivery BiPAP Oxygen Flow Rate Fraction of Inspired Oxygen 12/03/22 16:00 12/03/22 18:00 12/03/22 20:00 Temperature 36.4 C Pulse Rate 107 H 111 H 108 H Respiratory Rate 23 H Blood Pressure 141/98 H Pulse Oximetry
--- NOTE | 2022-12-04 14:07 | PCPTNOTE ---
Attempted to evaluate patient, but patient and respiratory therapy are working on his BiPap machine.
--- NOTE | 2022-12-04 14:34 | PM.IMPN ---
Progress Note: A&P Assessment and Plan (1) Acute and chronic respiratory failure with hypercapnia: Code(s): J96.22 - Acute and chronic respiratory failure with hypercapnia Status: Acute Assessment and Plan: Patient with acute on chronic respiratory failure. At home, he uses oxygen with exertion but room air at rest and has BiPAP. He states he is compliant with BiPAP at night. CT chest in 2020 showing right elevation of hemidiaphragm. Diffuse wheezing noted still. Able to tolerate time off the BiPAP. Continue nebulizer treatments. Was changed to prednisone but now back on Solu-Medrol. Pulmonary consulted and appreciate their input. Wean BiPAP as tolerated to nighttime use only as tolerated. Continue PT/OT. Increase activity. (2) Acute exacerbation of chronic obstructive pulmonary disease (COPD): Code(s): J44.1 - Chronic obstructive pulmonary disease with (acute) exacerbation Status: Acute Assessment and Plan: The patient typically wears oxygen at 2-3 L home with exertion. Currently on BiPAP but tolerating time off -CXR showing elevated right hemidiaphragm (old) o/w clear. -LE venous doppler negative for DVT -Also on sulfasalazine for unclear reasons (psoriatic arthritis?) which can cause pulmonary toxicity. This was started about 1 year ago -Does have productive cough and was started on Rocephin and doxycycline 11/30. -BCx NGTD. MRSA nasal swab negative. Sputum not yet collected -Continue nebulizer treatments. -Continue steroids and abx (3) Congestive heart failure: Code(s): I50.9 - Heart failure, unspecified Status: Acute Assessment and Plan: Last echo 05/27/2022 Showing EF 45-50% with grade 1 diastolic dysfunction. BNP was 99. [place] unlikely that he has a CHF exacerbation. Continue Coreg, Lasix and lisinopril. (4) Paroxysmal atrial fibrillation: Code(s): I48.0 - Paroxysmal atrial fibrillation Status: Acute Assessment and Plan: The patient is currently in sinus rhythm with sinus tachycardia. Changed to Xopenex. Not on DOAC for unclear reasons (d/c note from 05/31/22 states due to fall risk). Continue Coreg. (5) CAD (coronary artery disease): Code(s): I25.10 - Atherosclerotic heart disease of [place] coronary artery without angina pectoris Status: Chronic Assessment and Plan: No CP. EKG showing no acute findings. Continue with Coreg, aspirin, and Lipitor (6) HTN (hypertension): Code(s): I10 - Essential (primary) hypertension Status: Chronic Assessment and Plan: Patient's blood pressure was reviewed on 12/04 Blood pressure remains well controlled. Will continue current medications. Plan Hyperkalemia -potassium 5.3. Repeat was normal. This could be a lab error. Follow Hyponatremia -sodium stable. Continue to monitor. Rash - probably related to bed rest and more of a contact rash. Follow. Increase time out of bed Subjective Date/time seen: 12/04/22 14:34 Interval history: 66yo male with with COPD and chronic respiratory failure here for shortness of breath. Feels better. No chest pain. Shortness of breath is improved. Eating okay. No bowel movement is requesting something for constipation. Was up to the chair today. Exam Narrative: AF 97.6 112/78 110 20 95% bipap Gen - NARD sitting up in chair Chest - distant BS with faint expiratory wheezes CV - tachycardic, regular; Tele showing no significant dysrhythmias Abd - Soft, protubernat, +BS Ext - No pedal edema Psych - Nml mood and affect Skin - warm and dry Objective Data Vital Signs Vital Signs: Vital Signs - 24 hr 12/03/22 16:00 12/03/22 16:00 12/03/22 17:00 Temperature 98.5 F Pulse Rate 106 H 114 H Respiratory Rate 18 Blood Pressure 137/85 Pulse Oximetry 100 100 Oxygen Delivery Nasal Cannula Oxygen Flow Rate 5 Fraction of Inspired Oxygen 12/03/22 17:30 12/03/22 16:00 12/03/22 18:00
[2022-12-04] MEDS: polyethylene glycoL 3350 17 GM POWD.PACK PO (17:32)
[2022-12-04] MEDS: MELATONIN 5 MG TABLET 10 MG PO (21:34)
[2022-12-04] MEDS: CYCLOBENZAPRINE HCL 10 MG TABLET PO (21:34)
[2022-12-04] MEDS: oxyCODONE/ACETAMINOPHEN (*CRX) 10-325 MG TABLET 1 TAB PO (21:34)
--- NOTE | 2022-12-04 22:02 | PCRCNOTE ---
Pt placed back on order setting, BIPAP 14/6, 16RR 30% Fi02. Pt is resting, no SOB or increased WOB present.
[2022-12-05] VITALS (24 sets, daily range): BP systolic 126–139; BP diastolic 75–86; PULSE 99–119; RESP 16–30; TEMP 36.3–36.9; O2SAT 86–99
[2022-12-05] MEDS: IPRATROPIUM BR 0.02% INH SOLN 0.5 MG/2.5 ML VIAL INHALATION ×3 (02:45→15:06)
[2022-12-05 04:43] LABS: Basophils Percent Auto 0.1 % (0.2-1.2); Hematocrit 38.7 % (42.0-52.0); Hemoglobin 11.9 g/dL (14.0-18.0); Immature Granulocyte Absolute 0.07 K/mm3 (0.00-0.031); Immature Granulocyte Percent A 0.7 % (0-0.5); Lymphocytes Absolute Auto 1.26 K/mm3 (0.9-3.2); Lymphocytes Percent Auto 12.1 % (18.3-44.2); Mean Corpuscular HGB Conc 30.7 g/dl (32-36); Mean Corpuscular Hemoglobin 30.2 pg (26-34); Mean Corpuscular Volume 98.2 fl (80-100); Mean Platelet Volume 10.6 fl (7.4-10.4); Monocytes Absolute Auto 0.8 K/mm3 (0.1-0.6); Monocytes Percent Auto 7.6 % (2.6-8.5); Neutrophils Absolute Auto 8.3 K/mm3 (1.3-6.7); Neutrophils Percent Auto 79.5 % (45.5-73.1); Platelet Count Result 163 k/mm3 (150-375); Red Blood Count 3.94 M/mm3 (4.6-6.20); Red Cell Distribution Width 15.6 % (11.5-14.5); White Blood Count 10.4 K/mm3 (4.5-10.0)
[2022-12-05 04:55] LABS: Alanine Aminotransferase 37 U/L (6-50); Albumin Level 3.7 g/dL (3.5-5.1); Alkaline Phosphatase 102 U/L (38-126); Aspartate Amino Transferase 43 U/L (17-59); Bilirubin,Total 0.4 mg/dL (0.2-1.3); Blood Urea Nitrogen 32 mg/dL (9-20); Calcium 8.1 mg/dL (8.4-10.2); Carbon Dioxide > 40 mmol/L (22-30); Chloride 88 mmol/L (98-107); Estimated CRCL calculation 74 ml/min; Estimated Glomerular Filt Rate > 60; Glucose 158 mg/dL (65-110); Magnesium 1.7 mg/dL (1.6-2.3); Potassium 3.9 mmol/L (3.4-5.0); Sodium 131 mmol/L (137-145)
[2022-12-05] MEDS: carvediloL 25 MG TABLET PO ×2 (09:09→18:22)
[2022-12-05] MEDS: ASPIRIN 81 MG ENTERIC TABLET PO (09:09)
[2022-12-05] MEDS: ARIPiprazole 2 MG TABLET PO (09:10)
[2022-12-05] MEDS: DOXYCYCLINE 100 MG/NS 100 ML 100 MG/100 ML BAG IVPB (09:10)
[2022-12-05] MEDS: ATORVASTATIN 20 MG TABLET PO (09:10)
[2022-12-05] MEDS: VENLAFAXINE HCL XR 75 MG CAP.ER.24H 225 MG PO (09:11)
[2022-12-05] MEDS: sulfaSALAzine 500 MG TABLET 1000 MG PO ×2 (09:12→18:23)
[2022-12-05] MEDS: methylPREDNISolone SOD SUCC 125 MG VIAL 60 MG IV PUSH (09:13)
[2022-12-05] MEDS: FUROSEMIDE 40 MG TABLET PO (09:15)
[2022-12-05] MEDS: lisinopriL 10 MG TABLET PO (09:15)
[2022-12-05] MEDS: ENOXAPARIN 40 MG/0.4 ML SYRINGE SUB-Q (09:16)
[2022-12-05] MEDS: FOLIC ACID 1 MG TABLET 3 MG PO (09:17)
[2022-12-05] MEDS: POTASSIUM CHLORIDE 10 MEQ TABLET.ER PO (09:19)
[2022-12-05] MEDS: FLUTICASONE/UMECLIDIN/VILANTER 100-62.5-25 MCG ELLIPTA 1 PUFF INHALATION (09:22)
--- NOTE | 2022-12-05 09:39 | PM.PNPUL ---
Progress Note: A&P Assessment and Plan (1) Elevated diaphragm: Code(s): J98.6 - Disorders of diaphragm Status: Acute (2) Respiratory failure with hypercapnia: Qualifiers: Chronicity: acute on chronic Qualified Code(s): J96.22 - Acute and chronic respiratory failure with hypercapnia Code(s): J96.92 - Respiratory failure, unspecified with hypercapnia Status: Acute Assessment and Plan: 66-year-old man with chronic hypercapnic hypoxemic respiratory failure on home ventilatory support via trilogy ventilator presented with acute on chronic hypercapnic respiratory failure. patient has evidence of a right hemidiaphragm weakness but his presentation and also clinical course during this hospitalization suggest COPD. Patient improved initially with IV steroids nebulized short-acting bronchodilators and when steroids were decreased he developed more wheezing bilaterally. Over the last 2 days he has been back on higher dose of IV steroids. Currently his respiratory status is improved. Plan: will continue with oral prednisone 40 mg daily. Chest fluoroscopy for possible right hemidiaphragm weakness. (3) Acute and chronic respiratory failure with hypercapnia: Code(s): J96.22 - Acute and chronic respiratory failure with hypercapnia Status: Acute Subjective Date/time seen: 12/05/22 09:39 Interval history: patient stated he is doing better. He did not want to be switched to nasal cannula per RN this a.m. he is still on BiPAP support. No other new respiratory symptoms Review of Systems Review of Systems: All systems reviewed & are unremarkable except as noted in HPI and below ( HPI and below) Exam Narrative: GENERAL APPEARANCE: Well developed, well nourished, alert and cooperative, and appears to be in mild respiratory distress while on BiPAP support SKIN: Inspection of the skin reveals no rashes, ulcerations or petechiae. HEENT: Sclerae anicteric and conjunctivae pink and moist. Extraocular movements were intact and pupils were equal, round, and reactive to light. The oral mucosa, hard and soft palate, tongue and posterior pharynx were normal. NECK: Supple. There was no thyroid enlargement, and no tenderness, or masses were felt. CHEST: Normal AP diameter and normal contour without any kyphoscoliosis. LUNGS: Less wheezing bilaterally than yesterday CARDIAC: There was a regular rate and rhythm without any murmurs. ABDOMEN: patient was examined in supine position. abdominal paradox still present. Abdomen soft nontender no organomegaly LYMPH NODES: No lymphadenopathy was appreciated in the neck. EXTREMITIES: No cyanosis, clubbing or edema. NEUROLOGIC: Alert and oriented x 3. Normal affect. Objective Data Vital Signs Vital Signs: Vital Signs - 24 hr 12/04/22 11:35 12/04/22 10:40 12/04/22 11:18 Temperature Pulse Rate 110 H Respiratory Rate 20 Blood Pressure Pulse Oximetry 96 98 99 Oxygen Delivery Nasal Cannula Nasal Cannula BiPAP Oxygen Flow Rate 5 5 Fraction of Inspired Oxygen 30 12/04/22 11:45 12/04/22 13:27 12/04/22 12:00 Temperature 36.4 C Pulse Rate 110 H Respiratory Rate 21 H Blood Pressure 112/78 Pulse Oximetry 94 100 Oxygen Delivery Nasal Cannula Nasal Cannula Oxygen Flow Rate 5 6 Fraction of Inspired Oxygen 12/04/22 10:00 12/04/22 12:00 12/04/22 12:00 Temperature Pulse Rate 106 H 120 H Respiratory Rate Blood Pressure Pulse Oximetry 98 Oxygen Delivery Nasal Cannula Oxygen Flow Rate 5 Fraction of Inspired Oxygen 12/04/22 14:12 12/04/22 14:10 12/04/22 14:18 Temperature Pulse Rate 113 H 115 H 110 H Respiratory Rate 18 25 H 20 Blood Pressure Pulse Oximetry 95 Oxygen Delivery BiPAP Oxygen Flow Rate Fraction of Inspired Oxygen 12/04/22 16:00 12/04/22 17:32 12/04/22 14:00 Temperature 36.3 C L Pulse Rate 108 H 78 114 H Respiratory Rate 20 Blood Pressure 98/63 L
[2022-12-05 10:08] LABS: Alveolar/Arterial O2 Gradient 77.5 mmHg; Base Excess ABG 9.7 mEq/l (+/-2.0); Fractional Inspired Oxygen 32 %; HCO3 ABG 36.8 mEq/l (22.0-26.0); Oxygen Content ABG 15.9 %vol (16.0-22.0); Oxygen Saturation ABG 94.8 % (95.0-100.0); Oxyhemoglobin 93.9 % THb (90.0-100.0); PO2 ABG 76.8 mmHg (80.0-100.0); pH ABG 7.384 (7.350-7.450)
[2022-12-05 10:10] LABS: Device NASAL CANNULA; Modified Allen's Test Pass; PCO2 ABG 63.1 mmHg (35.0-45.0); Site Drawn LEFT RADIAL
--- NOTE | 2022-12-05 11:05 | PCOTNOTE ---
Attempted to see Patient at this time. Patient unavailable at this time. Patient having an IV placed.
--- NOTE | 2022-12-05 12:34 | PM.IMPN ---
Progress Note: A&P Assessment and Plan (1) Acute and chronic respiratory failure with hypercapnia: Code(s): J96.22 - Acute and chronic respiratory failure with hypercapnia Status: Acute Assessment and Plan: Patient with acute on chronic respiratory failure. At home, he uses oxygen with exertion but room air at rest and has BiPAP. He states he is compliant with BiPAP at night. CT chest in 2020 showing right elevation of hemidiaphragm. He now able to be off the BiPAP while awake. Continue nebulizer treatments. Was changed to prednisone today. Pulmonary consulted and appreciate their input. Continue PT/OT. Increase activity. Home O2 evaluation. Home tomorrow. Discussed with pulmonary. (2) Acute exacerbation of chronic obstructive pulmonary disease (COPD): Code(s): J44.1 - Chronic obstructive pulmonary disease with (acute) exacerbation Status: Acute Assessment and Plan: The patient typically wears oxygen at 2-3 L home with exertion abd room air at rest. -CXR showing elevated right hemidiaphragm (old) o/w clear. Sniff test ordered -LE venous doppler negative for DVT -Also on sulfasalazine for unclear reasons (psoriatic arthritis?) which can cause pulmonary toxicity. This was started about 1 year ago -Does have productive cough and was started on Rocephin and doxycycline 11/30. -BCx NGTD. MRSA nasal swab negative. Sputum not yet collected -Continue nebulizer treatments. 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 BNP was 99. [place] unlikely that he has a CHF exacerbation. Continue Coreg, Lasix and lisinopril. (4) Paroxysmal atrial fibrillation: Code(s): I48.0 - Paroxysmal atrial fibrillation Status: Acute Assessment and Plan: The patient is currently in sinus rhythm with sinus tachycardia. Changed to Xopenex. Not on DOAC for unclear reasons (d/c note from 05/31/22 states due to fall risk). Continue Coreg. Will decrease Xopenex. If tachycardia persists, consider advancing Coreg. (5) CAD (coronary artery disease): Code(s): I25.10 - Atherosclerotic heart disease of [place] coronary artery without angina pectoris Status: Chronic Assessment and Plan: No CP. EKG showing no acute findings. Continue with Coreg, aspirin, and Lipitor (6) HTN (hypertension): Code(s): I10 - Essential (primary) hypertension Status: Chronic Assessment and Plan: Patient's blood pressure was reviewed on 12/05 Blood pressure remains well controlled. Will continue current medications. Plan Hyperkalemia -potassium 5.3. Repeat was normal. Follow Hyponatremia -sodium stable at 131. Continue to monitor. Subjective Date/time seen: 12/05/22 12:34 Interval history: 66yo male with with COPD and chronic respiratory failure here for shortness of breath. Was up walking to the door and back with cane (with therapy). WOre the mask last night. He has BiPAP at home. He normally wears O2 with exertion but not at rest. No CP. No COLLADO or SOB. Exam Narrative: AF 126/79 116 18 96% 3L Gen - NARD sitting up in chair Chest - distant BS with faint expiratory wheezes CV - tachycardic, regular; Tele showing sinus tachycardia, PVCs but no significant dysrhythmias Abd - Soft, protuberant, +BS Ext - No pedal edema Psych - Nml mood and affect Skin - warm and dry Objective Data Vital Signs Vital Signs: Vital Signs - 24 hr 12/04/22 13:27 12/04/22 14:12 12/04/22 14:10 Temperature Pulse Rate 113 H 115 H Respiratory Rate 18 25 H Blood Pressure Pulse Oximetry 95 Oxygen Delivery Nasal Cannula BiPAP Oxygen Flow Rate 6 Fraction of Inspired Oxygen 12/04/22 14:18 12/04/22 16:00 01
--- NOTE | 2022-12-05 14:57 | HOMEO2EVAL ---
Evaluation was performed at [facility] Home Oxygen Evaluation RC: Home Oxygen (O2) Evaluation Start: 12/05/22 12:40 Freq: ONCE Status: Active Protocol: RPE Activity Type Activity Date Activity User E-sign Co-sign Detail Recorded Client Recorded Date Recorded By Document 12/05/22 14:30 [email or web address] [email or web address] 12/05/22 14:56 AVIVA Document 12/05/22 14:31 [email or web address] [email or web address] 12/05/22 14:56 AVIVA Document 12/05/22 14:33 [email or web address] [email or web address] 12/05/22 14:56 AVIVA Document 12/05/22 14:34 [email or web address] [email or web address] 12/05/22 14:56 AVIVA Document 12/05/22 14:45 [email or web address] [email or web address] 12/05/22 14:56 AVIVA 12/05/22 12/05/22 12/05/22 14:30 14:31 14:33 Home O2 Evaluation [Oxygen] -Test Phase Resting Resting Exercise -Oxygen Delivery Room Air Nasal Cannula Nasal Cannula -Oxygen Flow Rate (L/min) 1 1 [Pulse Oximetry] -Pulse Oximetry (90-100 %) 86 L 91 88 L [Pulse Rate] -Pulse Rate (60-100 beats/min) 111 H [Comments] -Home Oxygen Evaluation Comments [Charges] -Treatment Charges O2 Evaluation - Inpatient 12/05/22 12/05/22 14:34 14:45 Home O2 Evaluation [Oxygen] -Test Phase Exercise Resting -Oxygen Delivery Nasal Cannula Nasal Cannula -Oxygen Flow Rate (L/min) 2 1 [Pulse Oximetry] -Pulse Oximetry (90-100 %) 92 93 [Pulse Rate] -Pulse Rate (60-100 beats/min) [Comments] -Home Oxygen Evaluation Comments PT REQUIRES 1 L RESTING AND 2 L WITH ACTIVITY [Charges] -Treatment Charges
--- NOTE | 2022-12-05 14:57 | PCRCNOTE ---
HOME O2 EVAL DONE, PT REQUIRES 1 L RESTING AND 2 L WITH ACTIVITY AND HOME TRILOGY UNIT AT NIGHT AND NAPS. RN NOTIFIED. WILL CONTACT DME WITH UPDATE TO O2 NEEDS.
[2022-12-05] MEDS: CYCLOBENZAPRINE HCL 10 MG TABLET PO (18:24)
[2022-12-05] MEDS: oxyCODONE/ACETAMINOPHEN (*CRX) 10-325 MG TABLET 1 TAB PO (18:26)
[2022-12-05] MEDS: CEFDINIR 300 MG CAPSULE PO (20:39)
[2022-12-05] MEDS: DOXYCYCLINE HYCLATE 100 MG TABLET PO (20:39)
[2022-12-05] MEDS: MELATONIN 5 MG TABLET 10 MG PO (20:54)
[2022-12-06] VITALS (19 sets, daily range): BP systolic 104–147; BP diastolic 66–76; PULSE 86–115; RESP 16–20; TEMP 36.1–37.1; O2SAT 92–100
[2022-12-06 06:44] LABS: Blood Urea Nitrogen 25 mg/dL (9-20); Carbon Dioxide > 40 mmol/L (22-30); Chloride 88 mmol/L (98-107); Estimated CRCL calculation 96 ml/min; Estimated Glomerular Filt Rate > 60; Glucose 86 mg/dL (65-110); Sodium 128 mmol/L (137-145)
[2022-12-06] MEDS: POTASSIUM CHLORIDE 10 MEQ TABLET.ER PO (08:15)
[2022-12-06] MEDS: CYCLOBENZAPRINE HCL 10 MG TABLET PO (08:15)
[2022-12-06] MEDS: CEFDINIR 300 MG CAPSULE PO ×2 (08:15→20:59)
[2022-12-06] MEDS: carvediloL 25 MG TABLET PO ×2 (08:16→17:21)
[2022-12-06] MEDS: VENLAFAXINE HCL XR 75 MG CAP.ER.24H 225 MG PO (08:16)
[2022-12-06] MEDS: ATORVASTATIN 20 MG TABLET PO (08:17)
[2022-12-06] MEDS: FOLIC ACID 1 MG TABLET 3 MG PO (08:17)
[2022-12-06] MEDS: predniSONE 20 MG TABLET 40 MG PO (08:17)
[2022-12-06] MEDS: lisinopriL 10 MG TABLET PO (08:17)
[2022-12-06] MEDS: sulfaSALAzine 500 MG TABLET 1000 MG PO ×2 (08:18→17:20)
[2022-12-06] MEDS: ASPIRIN 81 MG ENTERIC TABLET PO (08:18)
[2022-12-06] MEDS: DOXYCYCLINE HYCLATE 100 MG TABLET PO ×2 (08:19→20:59)
[2022-12-06] MEDS: ARIPiprazole 2 MG TABLET PO (08:19)
[2022-12-06] MEDS: FUROSEMIDE 40 MG TABLET PO (08:19)
[2022-12-06] MEDS: ENOXAPARIN 40 MG/0.4 ML SYRINGE SUB-Q (08:19)
[2022-12-06] MEDS: HYDROcodone/acetaminophen (*CRX) 5-325 MG TABLET 1 TAB PO ×3 (08:23→21:09)
--- NOTE | 2022-12-06 09:25 | PM.PNPUL ---
Progress Note: A&P Assessment and Plan (1) Elevated diaphragm: Code(s): J98.6 - Disorders of diaphragm Status: Acute (2) Respiratory failure with hypercapnia: Qualifiers: Chronicity: acute on chronic Qualified Code(s): J96.22 - Acute and chronic respiratory failure with hypercapnia Code(s): J96.92 - Respiratory failure, unspecified with hypercapnia Status: Acute Assessment and Plan: 66-year-old man with chronic hypercapnic hypoxemic respiratory failure on home ventilatory support via trilogy ventilator presented with acute on chronic hypercapnic respiratory failure. patient has evidence of a right hemidiaphragm weakness but his presentation and also clinical course during this hospitalization suggest COPD. Patient improved initially with IV steroids nebulized short-acting bronchodilators and when steroids were decreased he developed more wheezing bilaterally. he went back on IV steroids with improvement of bilateral wheezing. starting today he will be a prednisone 40 mg daily along with nebulized short-acting bronchodilators and his maintenance triple inhaler. Chest fluoroscopy confirmed right diaphragm paralysis. 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 Plan: Continue with current regimen. Off BiPAP during the day, monitor respiratory status anticipate DC home in 1-2 days. (3) Acute and chronic respiratory failure with hypercapnia: Code(s): J96.22 - Acute and chronic respiratory failure with hypercapnia Status: Acute Subjective Date/time seen: 12/06/22 09:25 Interval history: Patient is still on BiPAP support this a.m.. He has no new respiratory symptoms. Used BiPAP support all night Review of Systems Review of Systems: All systems reviewed & are unremarkable except as noted in HPI and below ( HPI and below) Exam Narrative: GENERAL APPEARANCE: Well developed, well nourished, alert and cooperative, and appears to be in mild respiratory distress while on BiPAP support SKIN: Inspection of the skin reveals no rashes, ulcerations or petechiae. HEENT: Sclerae anicteric and conjunctivae pink and moist. Extraocular movements were intact and pupils were equal, round, and reactive to light. The oral mucosa, hard and soft palate, tongue and posterior pharynx were normal. NECK: Supple. There was no thyroid enlargement, and no tenderness, or masses were felt. CHEST: Normal AP diameter and normal contour without any kyphoscoliosis. LUNGS: minimal wheezing mostly expiratory while on BiPAP support CARDIAC: There was a regular rate and rhythm without any murmurs. ABDOMEN: patient was examined in supine position. abdominal paradox still present. Abdomen soft nontender no organomegaly LYMPH NODES: No lymphadenopathy was appreciated in the neck. EXTREMITIES: No cyanosis, clubbing or edema. NEUROLOGIC: Alert and oriented x 3. Normal affect. Objective Data Vital Signs Vital Signs: Vital Signs - 24 hr 12/05/22 14:30 12/05/22 14:31 12/05/22 14:33 Temperature Pulse Rate 111 H Respiratory Rate Blood Pressure Pulse Oximetry 86 L 91 88 L Oxygen Delivery Room Air Nasal Cannula Nasal Cannula Oxygen Flow Rate 1 1 Fraction of Inspired Oxygen 12/05/22 14:34 12/05/22 14:45 12/05/22 15:06 Temperature Pulse Rate 111 H Respiratory Rate 20 Blood Pressure Pulse Oximetry 92 93 Oxygen Delivery Nasal Cannula Nasal Cannula Oxygen Flow Rate 2 1 Fraction of Inspired Oxygen 12/05/22 09:48 12/05/22 16:00 12/05/22 15:24 Temperature 36.9 C Pulse Rate 109 H 114 H 113 H Respiratory Rate 18 18 18 Blood Pressure 139/84 Pulse Oximetry 94 Oxygen Delivery Oxygen Flow Rate Fraction of Inspired Oxygen 12/05/22 18:22 12/05/22 10:00 12/05/22 12:00 Temperature Pulse Rate 113 H 110 H 110 H Respiratory Rate Blood Pressure Pulse Oxime
[2022-12-06] MEDS: FLUTICASONE/UMECLIDIN/VILANTER 100-62.5-25 MCG ELLIPTA 1 PUFF INHALATION (10:06)
[2022-12-06] MEDS: IPRATROPIUM BR 0.02% INH SOLN 0.5 MG/2.5 ML VIAL INHALATION ×3 (10:06→20:36)
--- NOTE | 2022-12-06 10:57 | PCNWS ---
Weekly nutritional screen. Patient is tolerating current heart healthy diet with adequate intake at 100% all meals. No weight loss reported. No nutritional needs at this time.
--- NOTE | 2022-12-06 18:07 | PM.IMPN ---
Progress Note: A&P Assessment and Plan (1) Acute and chronic respiratory failure with hypercapnia: Code(s): J96.22 - Acute and chronic respiratory failure with hypercapnia Status: Acute Assessment and Plan: Patient with acute on chronic respiratory failure. At home, he uses oxygen with exertion but room air at rest and has BiPAP. He states he is compliant with BiPAP at night. CT chest in 2020 showing right elevation of hemidiaphragm. He now able to be off the BiPAP while awake. Continue nebulizer treatments. Was changed to prednisone. Pulmonary consulted and appreciate their input. Continue PT/OT. Increase activity. Home O2 evaluation. Pulmonary input noted and feels patient can go home tomorrow. (2) Acute exacerbation of chronic obstructive pulmonary disease (COPD): Code(s): J44.1 - Chronic obstructive pulmonary disease with (acute) exacerbation Status: Acute Assessment and Plan: The patient typically wears oxygen at 2-3 L home with exertion and room air at rest. -CXR showing elevated right hemidiaphragm (old) o/w clear. Sniff test shownig abnormal position and motion of right hemidiaphragm, consistent with phrenic nerve palsy. -LE venous doppler negative for DVT -Also on sulfasalazine for unclear reasons (psoriatic arthritis?) which can cause pulmonary toxicity. This was started about 1 year ago -Does have productive cough and was started on Rocephin and doxycycline 11/30. Changed to oral abx with last dose tomorrow. -BCx NGTD. MRSA nasal swab negative. Sputum not yet collected -Continue nebulizer treatments. -Continue steroids and abx (3) Congestive heart failure: Code(s): I50.9 - Heart failure, unspecified Status: Acute Assessment and Plan: Last echo 05/27/22 Showing EF 45-50% with grade 1 diastolic dysfunction. BNP was 99. [place] unlikely that he has a CHF exacerbation. Continue Coreg, Lasix and lisinopril. (4) Paroxysmal atrial fibrillation: Code(s): I48.0 - Paroxysmal atrial fibrillation Status: Acute Assessment and Plan: The patient is currently in sinus rhythm with sinus tachycardia. Changed to Xopenex. Not on DOAC for unclear reasons (d/c note from 05/31/22 states due to fall risk). Continue Coreg. Monitor on tele (5) CAD (coronary artery disease): Code(s): I25.10 - Atherosclerotic heart disease of [place] coronary artery without angina pectoris Status: Chronic Assessment and Plan: No CP. EKG showing no acute findings. Continue with Coreg, aspirin, and Lipitor (6) HTN (hypertension): Code(s): I10 - Essential (primary) hypertension Status: Chronic Assessment and Plan: Patient's blood pressure was reviewed on 12/06 Blood pressure remains well controlled. Will continue current medications. Plan Hyperkalemia -potassium 5.3. Repeat was normal. Follow Hyponatremia -sodium down to 128. Continue to monitor. Subjective Date/time seen: 12/06/22 18:07 Interval history: 66yo male with with COPD and chronic respiratory failure here for shortness of breath. Slept well. Tolerated mask last night. No SOB. No CP. No n/v. Feels well Exam Narrative: AF 104/76 107 16 98% 2L Gen - NARD sitting up at the side of the bed Chest - distant BS. nml RR CV - tachycardic, regular; Tele showing no significant dysrhythmias Abd - Soft, NT/ND, +BS Ext - No pedal edema Psych - Nml mood and affect Skin - warm and dry Objective Data Vital Signs Vital Signs: Vital Signs - 24 hr 12/05/22 18:22 12/05/22 21:00 12/05/22 20:00 Temperature 97.3 F L Pulse Rate 113 H 105 H 99 Respiratory Rate 16 Blood Pressure 131/86 Pulse Oximetry 92 Oxygen Delivery Oxygen Flow Rate Fraction of Inspired Oxygen 12/05/22 20:00 12/06/22 00:00 12/06/22 03:14 Temperature Pulse Rate 92 Respiratory Rate Blood Pressure Pulse Oximetry 92 94 Oxygen Delivery BiPAP BiPAP Oxyg
[2022-12-06] MEDS: MELATONIN 5 MG TABLET 10 MG PO (21:09)
[2022-12-07] VITALS (10 sets, daily range): BP systolic 117–145; BP diastolic 65–88; PULSE 86–112; RESP 20–24; TEMP 36.8–36.9; O2SAT 92–100
[2022-12-07 05:18] LABS: Blood Urea Nitrogen 22 mg/dL (9-20); Calcium 7.9 mg/dL (8.4-10.2); Carbon Dioxide > 40 mmol/L (22-30); Chloride 90 mmol/L (98-107); Estimated CRCL calculation 96 ml/min; Estimated Glomerular Filt Rate > 60; Glucose 78 mg/dL (65-110); Potassium 4.1 mmol/L (3.4-5.0); Sodium 130 mmol/L (137-145)
--- NOTE | 2022-12-07 08:42 | PM.IMPN ---
Progress Note: A&P Assessment and Plan (1) Acute and chronic respiratory failure with hypercapnia: Code(s): J96.22 - Acute and chronic respiratory failure with hypercapnia Status: Acute Assessment and Plan: Patient with acute on chronic respiratory failure. At home, he uses oxygen with exertion but room air at rest and has BiPAP. He states he is compliant with BiPAP at night. CT chest in 2020 showing right elevation of hemidiaphragm. He now able to be off the BiPAP while awake. Continue nebulizer treatments. Was changed to prednisone. Pulmonary consulted and appreciate their input. Continue PT/OT. Increase activity. Home O2 evaluation. Pulmonary input noted and feels patient can go home tomorrow. (2) Acute exacerbation of chronic obstructive pulmonary disease (COPD): Code(s): J44.1 - Chronic obstructive pulmonary disease with (acute) exacerbation Status: Acute Assessment and Plan: The patient typically wears oxygen at 2-3 L home with exertion and room air at rest. -CXR showing elevated right hemidiaphragm (old) o/w clear. Sniff test shownig abnormal position and motion of right hemidiaphragm, consistent with phrenic nerve palsy. -LE venous doppler negative for DVT -Also on sulfasalazine for unclear reasons (psoriatic arthritis?) which can cause pulmonary toxicity. This was started about 1 year ago -Does have productive cough and was started on Rocephin and doxycycline 11/30. Changed to oral abx with last dose tomorrow. -BCx NGTD. MRSA nasal swab negative. Sputum not yet collected -Continue nebulizer treatments. -Continue steroids and abx (3) Congestive heart failure: Code(s): I50.9 - Heart failure, unspecified Status: Acute Assessment and Plan: Last echo 05/27/22 Showing EF 45-50% with grade 1 diastolic dysfunction. BNP was 99. [place] unlikely that he has a CHF exacerbation. Continue Coreg, Lasix and lisinopril. (4) Paroxysmal atrial fibrillation: Code(s): I48.0 - Paroxysmal atrial fibrillation Status: Acute Assessment and Plan: The patient is currently in sinus rhythm with sinus tachycardia. Changed to Xopenex. Not on DOAC for unclear reasons (d/c note from 05/31/22 states due to fall risk). Continue Coreg. Monitor on tele (5) CAD (coronary artery disease): Code(s): I25.10 - Atherosclerotic heart disease of [place] coronary artery without angina pectoris Status: Chronic Assessment and Plan: No CP. EKG showing no acute findings. Continue with Coreg, aspirin, and Lipitor (6) HTN (hypertension): Code(s): I10 - Essential (primary) hypertension Status: Chronic Assessment and Plan: Patient's blood pressure was reviewed on 12/06 Blood pressure remains well controlled. Will continue current medications. Plan Hyperkalemia -potassium 5.3. Repeat was normal. Follow Hyponatremia -sodium down to 128. Continue to monitor. Subjective Date/time seen: 12/07/22 08:42 Interval history: 66yo male with with COPD and chronic respiratory failure here for shortness of breath. Slept well. Tolerated mask last night. No SOB. No CP. No n/v. Feels well Exam Narrative: AF 104/76 107 16 98% 2L Gen - NARD sitting up at the side of the bed Chest - distant BS. nml RR CV - tachycardic, regular; Tele showing no significant dysrhythmias Abd - Soft, NT/ND, +BS Ext - No pedal edema Psych - Nml mood and affect Skin - warm and dry Objective Data Vital Signs Vital Signs: Vital Signs - 24 hr 12/06/22 10:06 12/06/22 10:08 12/06/22 10:09 Temperature Pulse Rate 114 H 113 H 113 H Respiratory Rate 18 18 Blood Pressure Pulse Oximetry 93 93 Oxygen Delivery Nasal Cannula Oxygen Flow Rate 2 Fraction of Inspired Oxygen 12/06/22 12:14 12/06/22 14:12 12/06/22 14:20 Temperature Pulse Rate 115 H 105 H 108 H Respiratory Rate 20 20 Blood Pressure Pulse Oximetry Oxygen Deliver
[2022-12-07] MEDS: carvediloL 25 MG TABLET PO (08:51)
[2022-12-07] MEDS: POTASSIUM CHLORIDE 10 MEQ TABLET.ER PO (08:51)
[2022-12-07] MEDS: FOLIC ACID 1 MG TABLET 3 MG PO (08:51)
[2022-12-07] MEDS: lisinopriL 10 MG TABLET PO (08:51)
[2022-12-07] MEDS: CEFDINIR 300 MG CAPSULE PO (08:51)
[2022-12-07] MEDS: ENOXAPARIN 40 MG/0.4 ML SYRINGE SUB-Q (08:51)
[2022-12-07] MEDS: ARIPiprazole 2 MG TABLET PO (08:51)
[2022-12-07] MEDS: polyethylene glycoL 3350 17 GM POWD.PACK PO (08:51)
[2022-12-07] MEDS: ASPIRIN 81 MG ENTERIC TABLET PO (08:52)
[2022-12-07] MEDS: ATORVASTATIN 20 MG TABLET PO (08:52)
[2022-12-07] MEDS: sulfaSALAzine 500 MG TABLET 1000 MG PO (08:52)
[2022-12-07] MEDS: predniSONE 20 MG TABLET 40 MG PO (08:52)
[2022-12-07] MEDS: VENLAFAXINE HCL XR 75 MG CAP.ER.24H 225 MG PO (08:52)
[2022-12-07] MEDS: FUROSEMIDE 40 MG TABLET PO (08:52)
[2022-12-07] MEDS: DOXYCYCLINE HYCLATE 100 MG TABLET PO (09:10)
--- NOTE | 2022-12-07 11:03 | PM.DS ---
DS: Admitting Diagnosis Discharge Date 12/07/22 Admitting Diagnosis sob DS: Discharge Diagnosis Discharge Diagnosis (1) Acute and chronic respiratory failure with hypercapnia: Code(s): J96.22 - Acute and chronic respiratory failure with hypercapnia Status: Acute Assessment and Plan: Patient with acute on chronic respiratory failure. At home, he uses oxygen with exertion but room air at rest and has BiPAP. He states he is compliant with BiPAP at night. CT chest in 2020 showing right elevation of hemidiaphragm. He now able to be off the BiPAP while awake. Continue nebulizer treatments. Was changed to prednisone. Pulmonary consulted and appreciate their input. Continue PT/OT. Increase activity. Home O2 evaluation. Pulmonary input noted and feels patient can go home tomorrow. (2) Acute exacerbation of chronic obstructive pulmonary disease (COPD): Code(s): J44.1 - Chronic obstructive pulmonary disease with (acute) exacerbation Status: Acute Assessment and Plan: The patient typically wears oxygen at 2-3 L home with exertion and room air at rest. -CXR showing elevated right hemidiaphragm (old) o/w clear. Sniff test shownig abnormal position and motion of right hemidiaphragm, consistent with phrenic nerve palsy. -LE venous doppler negative for DVT -Also on sulfasalazine for unclear reasons (psoriatic arthritis?) which can cause pulmonary toxicity. This was started about 1 year ago -Does have productive cough and was started on Rocephin and doxycycline 11/30. Changed to oral abx with last dose tomorrow. -BCx NGTD. MRSA nasal swab negative. Sputum not yet collected -Continue nebulizer treatments. -Continue steroids and abx (3) Congestive heart failure: Code(s): I50.9 - Heart failure, unspecified Status: Acute Assessment and Plan: Last echo 05/27/22 Showing EF 45-50% with grade 1 diastolic dysfunction. BNP was 99. [place] unlikely that he has a CHF exacerbation. Continue Coreg, Lasix and lisinopril. (4) Paroxysmal atrial fibrillation: Code(s): I48.0 - Paroxysmal atrial fibrillation Status: Acute Assessment and Plan: The patient is currently in sinus rhythm with sinus tachycardia. Changed to Xopenex. Not on DOAC for unclear reasons (d/c note from 05/31/22 states due to fall risk). Continue Coreg. Monitor on tele (5) CAD (coronary artery disease): Code(s): I25.10 - Atherosclerotic heart disease of [place] coronary artery without angina pectoris Status: Chronic Assessment and Plan: No CP. EKG showing no acute findings. Continue with Coreg, aspirin, and Lipitor (6) HTN (hypertension): Code(s): I10 - Essential (primary) hypertension Status: Chronic Assessment and Plan: Patient's blood pressure was reviewed on 12/06 Blood pressure remains well controlled. Will continue current medications. Plan Hyperkalemia -potassium 5.3. Repeat was normal. Follow Hyponatremia -sodium down to 128. Continue to monitor. DS: Summary Hospital Course Hospital Course: 66-year-old male with past medical history significant for COPD, MABEL and hypertension is presenting with dyspnea on exertion. Usually worse to 3 L of oxygen per nasal cannula at baseline. He does continue to smoke off oxygen. In the ER, he was placed on BiPAP and started on albuterol treatments as well as Solu-Medrol. Pulmonology was consulted and recommended starting antibiotics. He was started on Rocephin and doxycycline, these were continued for a full 7 days. Solu-Medrol was transitioned to prednisone to complete a full 7 days of steroids. Patient did have significant hypercapnic respiratory failure and pulmonology titrated his BiPAP. This improved somewhat but will likely not normalize. Home O2 eval was performed, patient did quite well. He was discharged in stable condition with close outpatient follow-up by pulmonology in [facility]. Time Spent wit
--- NOTE | 2022-12-07 11:42 | PM.PNPUL ---
Progress Note: A&P Assessment and Plan (1) Elevated diaphragm: Code(s): J98.6 - Disorders of diaphragm Status: Acute (2) Respiratory failure with hypercapnia: Qualifiers: Chronicity: acute on chronic Qualified Code(s): J96.22 - Acute and chronic respiratory failure with hypercapnia Code(s): J96.92 - Respiratory failure, unspecified with hypercapnia Status: Acute Assessment and Plan: 66-year-old man with chronic hypercapnic hypoxemic respiratory failure on home ventilatory support via trilogy ventilator presented with acute on chronic hypercapnic respiratory failure. patient has evidence of a right hemidiaphragm weakness but his presentation and also clinical course during this hospitalization suggested COPD exacerbation. Patient improved initially with IV steroids nebulized short-acting bronchodilators and when steroids were decreased he developed more wheezing bilaterally. he went back on IV steroids with improvement of bilateral wheezing. patient is currently on oral steroids, on physical exam today he had no significant wheezing. Plan; Okay to DC patient home. The patient will continue with his maintenance bronchodilators for COPD, nebulized short-acting bronchodilators, home oxygen, prednisone 40 mg daily with instructions to taper down to 10 mg over the next 2 weeks. Patient needs to see his sheet metal layout mechanic regarding further management of COPD exacerbation and hypercapnic respiratory failure. It appears as though his hypercapnic respiratory failure is related to right hemidiaphragm paralysis and COPD. no pulmonary function tests are available regarding severity of COPD. I asked the patient to go back to his sheet metal layout mechanic's regarding management of COPD and hypercapnic respiratory failure. He will continue to use his home ventilator as prescribed by his sheet metal layout mechanic. will sign off please call any questions. (3) Acute and chronic respiratory failure with hypercapnia: Code(s): J96.22 - Acute and chronic respiratory failure with hypercapnia Status: Acute Subjective Date/time seen: 12/07/22 11:42 Interval history: patient has no new respiratory symptoms. Used BiPAP support last night. Still on BiPAP this a.m.. Review of Systems Review of Systems: All systems reviewed & are unremarkable except as noted in HPI and below ( HPI and below) Exam Narrative: GENERAL APPEARANCE: Well developed, well nourished, alert and cooperative, and appears to be in mild respiratory distress while on BiPAP support SKIN: Inspection of the skin reveals no rashes, ulcerations or petechiae. HEENT: Sclerae anicteric and conjunctivae pink and moist. Extraocular movements were intact and pupils were equal, round, and reactive to light. The oral mucosa, hard and soft palate, tongue and posterior pharynx were normal. NECK: Supple. There was no thyroid enlargement, and no tenderness, or masses were felt. CHEST: Normal AP diameter and normal contour without any kyphoscoliosis. LUNGS: minimal wheezing mostly expiratory while on BiPAP support CARDIAC: There was a regular rate and rhythm without any murmurs. ABDOMEN: patient was examined in supine position. abdominal paradox still present. Abdomen soft nontender no organomegaly LYMPH NODES: No lymphadenopathy was appreciated in the neck. EXTREMITIES: No cyanosis, clubbing or edema. NEUROLOGIC: Alert and oriented x 3. Normal affect. Objective Data Vital Signs Vital Signs: Vital Signs - 24 hr 12/06/22 12:14 12/06/22 14:12 12/06/22 14:20 Temperature Pulse Rate 115 H 105 H 108 H Respiratory Rate 20 20 Blood Pressure Pulse Oximetry Oxygen Delivery Fraction of Inspired Oxygen 12/06/22 16:00 12/06/22 17:21 12/06/22 16:00 Temperature 37.1 C Pulse Rate 108 H 107 H 105 H Respiratory Rate 16 Blood Pressure 104/76 Pulse Oximetry 98 Oxygen Delivery Fraction of Inspired Oxygen 12/06/22 20:39
== END 2022-12-07 14:15 | disposition home health service (06) | DRG 189 ==
LOC: ANHED 12:57 → ANHICU 13:26 → ANHIMU 12-03 16:51
PROVIDERS: Internal Medicine; Internal Medicine Pulmonary Disease; Nurse Practitioner; Admitting Provider Internal Medicine; Emergency Provider Family Medicine; PCP Physician Assistant; Visit Provider Student in an Organized Health Care Education/Training Program
DX: J96.22 Acute and chronic respiratory failure with hypercapnia (principal); J44.1 Chronic obstructive pulmonary disease with (acute) exacerbation; E87.1 Hypo-osmolality and hyponatremia; E78.5 Hyperlipidemia, unspecified; F41.9 Anxiety disorder, unspecified; F11.90 Opioid use, unspecified, uncomplicated; F31.9 Bipolar disorder, unspecified; F17.290 Nicotine dependence, other tobacco product, uncomplicated; G47.33 Obstructive sleep apnea (adult) (pediatric); G89.29 Other chronic pain; I25.10 Atherosclerotic heart disease of native coronary artery without angina pectoris; I48.0 Paroxysmal atrial fibrillation; I11.0 Hypertensive heart disease with heart failure; I50.9 Heart failure, unspecified; J98.6 Disorders of diaphragm; L40.50 Arthropathic psoriasis, unspecified; M54.9 Dorsalgia, unspecified; Z20.822 Contact with and (suspected) exposure to COVID-19; Z99.81 Dependence on supplemental oxygen; Z86.14 Personal history of Methicillin resistant Staphylococcus aureus infection; Z95.5 Presence of coronary angioplasty implant and graft; Z79.82 Long term (current) use of aspirin; Z90.49 Acquired absence of other specified parts of digestive tract; Z96.649 Presence of unspecified artificial hip joint
CPT/HCPCS: 36415; 36600; 71045; 71046; 76000; 80048; 80053; 82805; 83690; 83735; 83880; 84100; 84132; 84484; 85025; 85027; 85610; 85730; 87040; 87081; 87636; 93005; 93970; 94002; 94003; 94618; 94640; 94660; 96374; 97110; 97116; 97161; 97165; 97530; 97535; 99291; A9270; J0696; J1650; J2930; J7512

== ENCOUNTER 2023-03-19 11:28 | Inpatient (IN) | payer BC, MEDICARE, SELFPAY ==
[2023-03-19] VITALS (24 sets, daily range): BP systolic 97–147; BP diastolic 43–98; PULSE 78–100; RESP 12–31; TEMP 36.3–36.8; O2SAT 88–99; BMI 29.5
--- NOTE | ~2023-03-19 | CT_ITS ---
EXAMINATION: CTA chest PE protocol DATE: 03/19/2023 15:11 INDICATION: Shortness of breath. TECHNIQUE: Computed tomography angiography (CTA) of the chest was performed with 100 mL Omnipaque-350 intravenous contrast timed to evaluate the pulmonary arteries. Coronal maximum intensity projection 3D-reconstructions were created by the technologist. Automated exposure control and iterative reconst ruction technique were employed. The dose-length product was 934.15 mGy-cm. COMPARISON: Chest CT 01/28/2021, thoracic spine radiographs 02/24/22, chest two views 11/30/22 FINDINGS: There is chronic marked in elevation of right hemidiaphragm. There is chronic peripheral se ptal thickening in the lungs. There is atelectasis in the inferior lungs, right worse than left. No p leural effusion. There are nodules in the thyroid measuring up to 10 mm, likely not clinically signif icant. The heart size is normal. There are coronary artery calcifications. No pericardial effusion. T here is no pulmonary embolus. There is right-sided gynecomastia. There is severe cervical and thoraci c spondylosis. 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 There are compression fractures of T5 and T6 and burst fractures of T7, T8, and T9, likely chronic. IMPRESSION: 1. No pulmonary embolus. 2. Chronic marked elevation of right hemidiaphragm. 3. Mild chronic interstitial lung disease. Reviewed, dictated and finalized at location A.
--- NOTE | ~2023-03-19 | XR_ITS ---
XR chest 1V portable 03/20/2023 08:42 Indication: Shortness of breath Procedure: AP portable chest Comparison: Comparison to multiple prior studies sequentially, with oldest reviewed study dated 11/30. Findings: Shallow inspiration. Elevated right diaphragm. Small right effusion. There is mild bilatera l perihilar interstitial infiltrates with peribronchial thickening. No pneumothorax. No acute osseous abnormality. Impression: 1: Bilateral perihilar interstitial infiltrates which may represent mild edema or pneumonia. 2: Small right pleural effusion. 3: Chronic elevation of the right diaphragm. Reviewed, dictated and finalized at location B. Impression: 1: Bilateral perihilar interstitial infiltrates which may represent mild edema or pneumonia. 2: Small right pleural effusion. 3: Chronic elevation of the right diaphragm.
--- NOTE | ~2023-03-19 | XR_ITS ---
EXAMINATION: XR chest 1V portable DATE: 03/19/2023 13:30 INDICATION: Shortness of breath. TECHNIQUE: A single frontal view of the chest was obtained. COMPARISON: Chest single view 12/03/2022, chest CT 01/28/2021 FINDINGS: There is chronic mild elevation of right hemidiaphragm. There are airspace opacities in lef t mid and lower lung zones and at right lung base. No pneumothorax or pleural effusion. The heart siz e is normal. IMPRESSION: 1. Airspace opacities in left mid and lower lung zones and at right lung base, consistent with atelec tasis or less likely pneumonia. 2. Chronic elevation of right hemidiaphragm. Reviewed, dictated and finalized at location A. IMPRESSION: 1. Airspace opacities in left mid and lower lung zones and at right lung base, consistent with atelectasis or less likely pneumonia. 2. Chronic elevation of right hemidiaphragm.
--- NOTE | ~2023-03-19 | XR_ITS ---
EXAMINATION: XR tibia fibula RT 2V DATE: 03/19/2023 13:31 INDICATION: Right lower leg pain. TECHNIQUE: 2 views of right tibia and fibula on 3 radiographs were obtained. COMPARISON: None. FINDINGS: Bone alignment is normal. There is fixation of medial malleolus with a lag screw and pin. N o acute fracture. There is mild right knee osteoarthritis. IMPRESSION: 1. Mild right knee osteoarthritis. Reviewed, dictated and finalized at location A.
--- NOTE | ~2023-03-19 | XR_ITS ---
EXAMINATION: XR ankle RT min 3V DATE: 03/19/2023 13:32 INDICATION: Right ankle pain. Fall. TECHNIQUE: 4 views of right ankle were obtained. COMPARISON: None. FINDINGS: Bone alignment is normal. There is internal fixation of medial malleolus with a lag screw a nd pin. No acute fracture. There is mild midfoot osteoarthritis. There are enthesophytes at the poste rior and plantar aspects of calcaneal tuberosity. Ankle soft tissue swelling is noted. IMPRESSION: 1. Mild midfoot osteoarthritis. Reviewed, dictated and finalized at location A.
--- NOTE | ~2023-03-19 | US_ITS ---
EXAMINATION: US venous doppler LE RT DATE: 03/19/2023 12:56 INDICATION: Right lower limb pain and swelling. TECHNIQUE: Grayscale ultrasound images without and with compression and Doppler ultrasound images of the right lower extremity veins were obtained. COMPARISON: Ultrasound 12/01/2022 FINDINGS: The visualized portions of right common femoral vein, profunda (deep) femoral vein, femoral vein, pop liteal vein, peroneal veins, posterior tibial veins, and greater saphenous vein outflow are patent. IMPRESSION: 1. No deep venous thrombosis. Reviewed, dictated and finalized at location A.
--- NOTE | 2023-03-19 11:37 | PC.NURSE ---
per son pt has been having increased sob with minimal exertion. pt states right leg is swollen and red today. pt sitting on side of bed in position of comfort.
--- NOTE | 2023-03-19 11:40 | PC.NURSE ---
pt states they had taken him off his lasix but states he has been back on it this week
--- NOTE | 2023-03-19 11:49 | ECG_ITS ---
Measurements Intervals [place] Rate: 89 P: 59 CO: 162 QRS: 0 QRSD: 105 T: 24 QT: 337 QTc: 411 Interpretive Statements SINUS RHYTHM BORDERLINE R WAVE PROGRESSION, ANTERIOR LEADS CONSIDER INFERIOR INFARCT, AGE INDETERMINATE BASELINE ARTIFACT- I, III, AVR, AVL, AVF, V1 ABNORMAL ECG COMPARED TO ECG 11/30/2022 09:30:06 NO SIGNIFICANT CHANGES Electronically Signed On 03-19-2023 12:59:35 CDT by Jeronimo Snow D.O.
--- NOTE | 2023-03-19 11:51 | ED.SOB ---
HPI - SOB/Dyspnea General Chief Complaint: Shortness of Breath/Dyspnea <Lesly Mullen PA-C - Last Filed: 03/19/23 18:23> Stated Complaint: fall 4 days ago <Lesly Mullen PA-C - Last Filed: 03/19/23 18:23> Time Seen by Provider: 03/19/23 11:42 <Lesly Mullen PA-C - Last Filed: 03/19/23 18:23> History of Present Illness HPI Narrative: Patient is 67-year-old male with history of COPD here for evaluation of right leg pain after a fall 4 days ago. Patient states that he rolled out of bed in the middle of the evening and struck his right lower limb against the ground. He denies head injury or loss of consciousness. Since the fall he has had increased redness, swelling and pain from the knee down to the ankle. He has been able to walk, and has been taking oxycodone for pain. He also reports increased short of breath, was recently hospitalized here in November for COPD exacerbation. Found to be hypoxic on home 4 L to 88%. +productive chronic cough. No chest pain, fevers, chills. 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 Continues to smoke 1 ppd. He is a D[employer]. <Lesly Mullen PA-C - Last Filed: 03/19/23 18:23> Related Data Home Medications: Home Medications Medication Instructions Recorded Confirmed aspirin 81 mg tablet,delayed 81 mg PO DAILY 10/17/19 03/19/23 release (Adult Aspirin Regimen) atorvastatin 20 mg tablet 20 mg PO DAILY 10/17/19 03/19/23 oxycodone-acetaminophen 10 mg-325 1 tablet PO TID PRN Pain (Scale 10/17/19 03/19/23 mg tablet (Percocet) Score 4-6) fluticasone fur. 100 mcg-umeclid 1 inh inhalation DAILY 08/29/20 03/19/23 62.5 mcg-vilant 25 mcg inhalat.powder (Trelegy Ellipta) albuterol sulfate 90 mcg/actuation 2 puff inhalation TID PRN 03/18/21 05/07/23 aerosol inhaler Shortness Of Breath aripiprazole 2 mg tablet 2 mg PO DAILY 01/28/21 03/19/23 folic acid 1 mg tablet 3 mg PO DAILY 01/28/21 03/19/23 venlafaxine 150 mg 225 mg PO DAILY 01/28/21 03/19/23 capsule,extended release 24 hr acetaminophen 300 mg-codeine 60 mg 1 tablet PO DAILY PRN Pain 05/09/22 03/19/23 tablet carvedilol 25 mg tablet (Coreg) 25 mg PO BID 05/09/22 03/19/23 ipratropium 0.5 mg-albuterol 3 mg 3 ml inhalation TID PRN Shortness 05/09/22 03/19/23 (2.5 mg base)/3 mL nebulization Of Breath soln furosemide 20 mg tablet 40 mg PO DAILY 11/30/22 03/19/23 lisinopril 10 mg tablet 10 mg PO DAILY 11/30/22 03/19/23 potassium chloride 10 mEq 10 meq PO DAILY 11/30/22 03/19/23 tablet,extended release lidocaine 5 % topical patch 1 patch topical DAILY 12/27/22 03/19/23 methotrexate sodium 2.5 mg tablet 2.5 mg PO WEEKLY 12/27/22 03/19/23 <KARLI Gracia Last Filed: 03/19/23 18:23> Allergies/Adverse Reactions: Allergies Allergy/AdvReac Type Severity Reaction Status Date / Time procaine Allergy Unknown HEART Verified 03/19/23 11:38 PROBLEMS vancomycin Allergy Unknown Rash Verified 03/19/23 11:38 <Lesly Mullen PA-C - Last Filed: 03/19/23 18:23> Review of Systems Review of Systems: Gen.: Denies fevers or chills Eyes: Denies eye pain or visual change ENT: Denies congestion Respiratory: Reports shortness of breath CV: Denies chest pain or palpitations GI: Denies abdominal pain nausea, emesis or diarrhea : denies burning, urgency, frequency or hematuria Musculoskeletal: Reports right leg pain Neuro: Denies numbness, tingling, weakness or focal weakness Skin: Denies rash Except as documented, all other systems reviewed and negative <Lesly Mullen PA-C - Last Filed: 03/19/23 18:23> [facility] Past Medical History Medical History: Medical History Atherosclerosis of aorta Bipolar 1 disorder Cardiac aneurysm Patient states it is nonoperable. Chronic anemia Chronic back pain Chronic obstructive pulmonary disease Chronic respi
[2023-03-19] MEDS: LEVALBUTEROL NEB 1.25 MG/3 ML INHALATION (11:55)
[2023-03-19] MEDS: IPRATROPIUM BR 0.02% INH SOLN 0.5 MG/2.5 ML VIAL INHALATION (11:55)
[2023-03-19 12:08] LABS: Alveolar/Arterial O2 Gradient 50.3 mmHg; Base Excess ABG 14.7 mEq/l (+/-2.0); Fractional Inspired Oxygen 36 %; HCO3 ABG 44.8 mEq/l (22.0-26.0); Oxygen Content ABG 14.1 %vol (16.0-22.0); Oxygen Saturation ABG 96.1 % (95.0-100.0); PO2 ABG 96.8 mmHg (80.0-100.0); PO2 FiO2 Ratio Arterial Blood 2.69 %; Total Hemoglobin 11.3 g/dL (12.0-18.0)
[2023-03-19 12:09] LABS: pH ABG 7.294 (7.350-7.450)
[2023-03-19 12:10] LABS: Device NASAL CANNULA; Modified Allen's Test Pass; Oxyhemoglobin 87.7 % THb (90.0-100.0); PCO2 ABG 94.5 mmHg (35.0-45.0); Site Drawn RIGHT RADIAL
[2023-03-19] MEDS: methylPREDNISolone SOD SUCC 125 MG VIAL IV PUSH (12:26)
[2023-03-19 12:31] LABS: Alanine Aminotransferase 34 U/L (6-50); Albumin Level 3.6 g/dL (3.5-5.1); Alkaline Phosphatase 95 U/L (38-126); Aspartate Amino Transferase 43 U/L (17-59); Bilirubin,Total 0.5 mg/dL (0.2-1.3); Blood Urea Nitrogen 9 mg/dL (9-20); Calcium 8.3 mg/dL (8.4-10.2); Carbon Dioxide > 40 mmol/L (22-30); Chloride 90 mmol/L (98-107); Estimated CRCL calculation 111 ml/min; Estimated Glomerular Filt Rate > 60; Glucose 141 mg/dL (65-110); Magnesium 1.6 mg/dL (1.6-2.3); Potassium 3.9 mmol/L (3.4-5.0); Sodium 134 mmol/L (137-145)
[2023-03-19 12:36] LABS: NT Pro B Type Natriuretic Pept 88 pg/mL (19.9-100); Troponin I < 0.012 ng/mL (0.000-0.034)
[2023-03-19 12:46] LABS: Basophils Percent Auto 0.3 % (0.2-1.2); Eosinophils Absolute Auto 0.2 K/mm3 (0-0.3); Eosinophils Percent Auto 1.4 % (0-4.4); Hematocrit 34.4 % (42.0-52.0); Hemoglobin 10.1 g/dL (14.0-18.0); Immature Granulocyte Absolute 0.05 K/mm3 (0.00-0.031); Immature Granulocyte Percent A 0.4 % (0-0.5); Lymphocytes Absolute Auto 1.59 K/mm3 (0.9-3.2); Lymphocytes Percent Auto 11.9 % (18.3-44.2); Mean Corpuscular HGB Conc 29.4 g/dl (32-36); Mean Corpuscular Hemoglobin 29.2 pg (26-34); Mean Corpuscular Volume 99.4 fl (80-100); Monocytes Absolute Auto 1.1 K/mm3 (0.1-0.6); Monocytes Percent Auto 7.9 % (2.6-8.5); Neutrophils Absolute Auto 10.5 K/mm3 (1.3-6.7); Neutrophils Percent Auto 78.1 % (45.5-73.1); Platelet Count Result 229 k/mm3 (150-375); Red Blood Count 3.46 M/mm3 (4.6-6.20); Red Cell Distribution Width 16.6 % (11.5-14.5); White Blood Count 13.4 K/mm3 (4.5-10.0)
[2023-03-19 13:01] LABS: INR 0.9
[2023-03-19 13:02] LABS: Partial Thromboplastin Time 23.9 SECONDS (22.3-36.8)
[2023-03-19 13:06] LABS: Basophilic Stippling 1+ (NORMAL); Hypochromasia 1+ (NORMAL); Platelet Estimate Adequate (Adequate); Stomatocytes 1+ (NORMAL)
[2023-03-19 13:07] LABS: Schistocytes None Seen (NORMAL)
[2023-03-19 13:09] LABS: Influenza A QL RT-PCR Negative (Negative); Influenza B QL RT-PCR Negative (Negative); SARS-CoV-2 RNA PCR Negative (Negative)
[2023-03-19 13:13] LABS: Alveolar/Arterial O2 Gradient 47.9 mmHg; Base Excess ABG 16.1 mEq/l (+/-2.0); Fractional Inspired Oxygen 32 %; HCO3 ABG 45.9 mEq/l (22.0-26.0); Oxygen Content ABG 13.6 %vol (16.0-22.0); Oxygen Saturation ABG 91.9 % (95.0-100.0); PO2 FiO2 Ratio Arterial Blood 2.25 %; Total Hemoglobin 11.2 g/dL (12.0-18.0); pH ABG 7.314 (7.350-7.450)
[2023-03-19 13:15] LABS: Device NON-INVASIVE VENT; Modified Allen's Test Pass; Non-Invasive Expiratory Pressure 6 CMH2O; Non-Invasive Inspiratory Pressure 12 CMH2O; Non-Invasive Vent Rate 22 /MIN; Oxyhemoglobin 85.9 % THb (90.0-100.0); PCO2 ABG 92.5 mmHg (35.0-45.0); Site Drawn RIGHT RADIAL
--- NOTE | 2023-03-19 13:17 | PCRCNOTE ---
Per MD request and ABG results, BIPAP orders changed from 10/18 to 28/04.
[2023-03-19] MEDS: SODIUM CHLORIDE 0.9% IV 1,000 ML 999 ML IV CONT (14:44)
[2023-03-19 16:02] LABS: Fractional Inspired Oxygen 32 %; HCO3 VBG 45.3 mEq/l (24.0-30.0); PO2 VBG 29.1 mmHg (35.0-45.0); pH VBG 7.323 (7.300-7.400)
[2023-03-19 16:03] LABS: Device NON-INVASIVE VENT; PCO2 VBG 89.4 mmHg (42.0-48.0)
[2023-03-19 16:04] LABS: Non-Invasive Expiratory Pressure 6 CMH2O; Non-Invasive Inspiratory Pressure 16 CMH2O; Non-Invasive Vent Rate 22 /MIN
--- NOTE | 2023-03-19 16:22 | PM.IMHP ---
H&P: HPI History of Present Illness Date/Time: 03/19/23 16:00 Chief Complaint: Right leg pain after a fall. Narrative: This is a pleasant 67-year-old male smoker with chronic hypoxic and hypercarbic respiratory failure on 4 L nasal cannula and trilogy unit at nighttime, chronic obstructive pulmonary disease, coronary artery disease, paroxysmal atrial fibrillation, hypertension, and history of DVT who presented to the emergency department via private vehicle from home for evaluation of right leg pain after fall. Patient provides the following history. He rolled out of bed in the middle of the tonight 4 days ago and struck his right leg against ground. Since that time he has noticed redness, swelling, and pain in the right lower leg. He has oxycodone at home and has been taking that for the pain. The pain is not necessarily worse with weight-bearing but it is worse with touch, even light touch. He denies fever, chills, sweats, chest pain, pleuritic pain, nausea, and vomiting. He denies head trauma and loss of consciousness in the fall and he did not sustain any significant injuries. On arrival to the emergency department today his SpO2 was 88% on his usual 4 L. He was not feeling any more short of breath than usual and reports a chronic cough productive of occasional yellow phlegm which is unchanged. ABG showed a pH of 7.294, pCO2 94.5, bicarb 44.8. Labs were significant for a WBC count of 13.4, sodium 134, carbon dioxide greater than 40, troponin less than 0.012, proBNP 88. He tested negative for COVID and influenza. Chest x-ray showed chronic elevation the right hemidiaphragm and airspace opacities in the left mid and lower lung zones at the right base consistent with atelectasis and less likely pneumonia. Chest CTA and right lower extremity venous Doppler ultrasounds were negative for PE and DVT. X-ray of the right lower leg and ankle showed no acute findings. On exam his right leg was erythematous, edematous, and warm and tender to touch consistent with cellulitis. He was started on BiPAP for the hypercarbia and was given a dose of azithromycin and ceftriaxone to cover possible pneumonia and cellulitis. Review of Systems Review of Systems: Twelve systems were reviewed and are negative except for as per HPI. [facility] Past Medical History Medical History Atherosclerosis of aorta Bipolar 1 disorder Cardiac aneurysm Patient states it is nonoperable. Chronic anemia Chronic back pain Chronic obstructive pulmonary disease Chronic respiratory failure with hypoxia and hypercapnia Congestive heart failure Coronary artery disease Depression Hyperlipidemia Hypertension Obstructive sleep apnea Paroxysmal atrial fibrillation Polyosteoarthritis, unspecified Psoriatic arthritis Tobacco abuse Surgical History Surgical History History of ankle surgery (1989) History of appendectomy (1986) History of coronary artery stent placement 1 stent in 2004. History of hammertoe correction (11/2017) History of left hip replacement (10/04/19) History of nasal septoplasty (1969) History of vasectomy (2004) Family History Family History Father COPD (chronic obstructive pulmonary disease) Mother Cancer Social History Social History (Updated 03/19/23 @ 20:56 by Rosa Vizcaino PA-C) Social History: Surrogate medical decision maker: Isatu Plascencia, spouse. Code status: Full code. Smoking packs per day: 1 Smoking cigarettes per day: 20.0 Years smoked: 45 Smoking pack-years: 45.00 Smoking status: Current every day smoker Tobacco type: cigarettes Second hand tobacco smoke exposure: Yes Alcohol intake: current Drinks per week: 2 Substance use: never Substance use type: does not use Lack of Transportation: No Lack of Food: Never True Current
[2023-03-19] MEDS: oxyCODONE/ACETAMINOPHEN (*CRX) 5-325 MG TABLET 1 TABLET PO (16:52)
--- NOTE | 2023-03-19 17:11 | PCRCNOTE ---
transported to CT for CT with contrast. IV was blown. transported back to ED for placement of new IV to put contrast into. re-transported pt to CT after and pt had CT performed.
--- NOTE | 2023-03-19 18:14 | ADMGEN ---
This patient, Israel Plascencia Sr., was admitted to IMU Room 207-01. Patient/family oriented to hospital policies and general routines including ID bracelet, bed and alarms, visiting hours, pain management, procedures, bathroom and other care routines, personal items, smoking policy, room service/diet, and visiting hours. Information on how to activate the Rapid Response Team has been discussed. Patient/Family are encouraged to report perceived risks to care and to ask questions if they do not understand what they are told or what they should do.
[2023-03-19] MEDS: carvediloL 25 MG TABLET PO (23:00)
[2023-03-20] VITALS (29 sets, daily range): BP systolic 104–136; BP diastolic 63–84; PULSE 80–101; RESP 18–28; TEMP 36.1–37.2; O2SAT 90–100
--- NOTE | 2023-03-20 | ECHO_ITS ---
Patient Info Name: Israel Plascencia Age: 67 years : 1955 Gender: Male Ht: 68 in Wt: 194 lbs BSA: 2.08 m2 BP: 116 / 74 mmHg Heart Rhythm: Sinus Rhythm Technical Quality: Fair Exam Date: 03/20/2023 3:22 PM Exam Location: [facility] Patient Status: Inpatient Admit Date: 03/19/2023 Staff Ordering Physician: Jennifer Muñoz DO Java Tech Lead: Chloé Barboza RDCS Attending Provider: John Cartagena MD Referring Physician: Wanda ELLER; Exam Type: CA echo doppler color flow Study Info Indications R06.02 - Shortness of breath Complete two-dimensional, color flow and Doppler transthoracic echocardiogram is performed. Summary 1. Complete two-dimensional, color flow and Doppler transthoracic echocardiogram is performed. 2. Normal left ventricular size with mild concentric hypertrophy. Left ventricular systolic function is borderline low at 52%. No segmental wall motion abnormalities. Grade 1 diastolic dysfunction is present. 3. No significant valve disease. 4. Right ventricular systolic pressure cannot be estimated on this study. 5. Normal sinus rhythm. Left Ventricle Left ventricular chamber dimension is normal. Left ventricular systolic function is mildly reduced, estimated at 50-55%. There is mildly increased left ventricular wall thickness. Left ventricular septal wall motion is normal. The left ventricular diastolic function is grade I diastolic dysfunction. Right Ventricle Right ventricular chamber dimension is normal. Right ventricular systolic function is normal. Left Atria Left atrial chamber dimension is mildly enlarged. Right Atria Right atrial chamber dimension is normal. Aortic Valve The aortic valve is trileaflet. There is no aortic valve sclerosis. There is no aortic valve stenosis. There is no aortic valve regurgitation. Pulmonic Valve The pulmonic valve is normal. There is no pulmonic valve stenosis. There is no pulmonic regurgitation. Mitral Valve The mitral valve has normal leaflets. There is no mitral valve stenosis. There is no mitral valve regurgitation. Tricuspid Valve The tricuspid valve leaflets are normal. There is no significant tricuspid valve stenosis. There is trace tricuspid valve regurgitation. No pulmonary hypertension, estimated pulmonary arterial systolic pressure is Empty. Pericardium/Pleural The pericardium appears normal. There is no pericardial effusion. Inferior Vena Cava Normal inferior vena cava with >50% collapse upon inspiration consistent with Empty right atrial pressure, Empty. Aorta The aortic root size at the sinus of Valsalva is normal. The prox ascending aorta size is normal. Left Ventricular Outflow Tract Name Value Normal LVOT 2D LVOT Diameter 2.4 cm LVOT Doppler LVOT Peak Gradient 3 mmHg LVOT Mean Gradient 2 mmHg LVOT VTI 24 cm LVOT VTI/AV VTI Ratio 0.9 LVOT Stroke Volume 107 ml LVOT CO 8.7 l/min LVOT CI 4.2 l/min/m2 Mitral Valve
[2023-03-20] MEDS: ALBUTEROL SULFATE NEB 2.5 MG/3 ML INH INHALATION ×4 (02:16→20:00)
[2023-03-20] MEDS: IPRATROPIUM BR 0.02% INH SOLN 0.5 MG/2.5 ML VIAL INHALATION ×4 (02:16→20:00)
[2023-03-20] MEDS: oxyCODONE/ACETAMINOPHEN (*CRX) 10-325 MG TABLET 1 TAB PO ×2 (03:54→13:54)
[2023-03-20 04:57] LABS: Hematocrit 32.6 % (42.0-52.0); Hemoglobin 9.6 g/dL (14.0-18.0); Mean Corpuscular HGB Conc 29.4 g/dl (32-36); Mean Corpuscular Hemoglobin 28.5 pg (26-34); Mean Corpuscular Volume 96.7 fl (80-100); Mean Platelet Volume 10.4 fl (7.4-10.4); Platelet Count Result 241 k/mm3 (150-375); Red Blood Count 3.37 M/mm3 (4.6-6.20); Red Cell Distribution Width 16.7 % (11.5-14.5); White Blood Count 16.5 K/mm3 (4.5-10.0)
[2023-03-20 05:17] LABS: Blood Urea Nitrogen 16 mg/dL (9-20); CRP < 0.5 mg/dL (<1.0); Calcium 8.5 mg/dL (8.4-10.2); Carbon Dioxide > 40 mmol/L (22-30); Chloride 92 mmol/L (98-107); Estimated CRCL calculation 98 ml/min; Estimated Glomerular Filt Rate > 60; Glucose 131 mg/dL (65-110); Magnesium 1.7 mg/dL (1.6-2.3); Potassium 4.1 mmol/L (3.4-5.0); Sodium 135 mmol/L (137-145)
[2023-03-20 05:26] LABS: Procalcitonin 0.1 ng/mL
[2023-03-20 07:22] LABS: Alveolar/Arterial O2 Gradient 114.5 mmHg; Base Excess ABG 16.5 mEq/l (+/-2.0); Fractional Inspired Oxygen 40 %; HCO3 ABG 45.8 mEq/l (22.0-26.0); Oxygen Saturation ABG 91.7 % (95.0-100.0); Oxyhemoglobin 90.8 % THb (90.0-100.0); PO2 ABG 69.6 mmHg (80.0-100.0); PO2 FiO2 Ratio Arterial Blood 1.74 %; Total Hemoglobin 10.9 g/dL (12.0-18.0); pH ABG 7.335 (7.350-7.450)
[2023-03-20 07:26] LABS: Device NON-INVASIVE VENT; Modified Allen's Test Pass; Non-Invasive Expiratory Pressure 6 CMH2O; Non-Invasive Inspiratory Pressure 18 CMH2O; Non-Invasive Vent Rate 22 /MIN; PCO2 ABG 87.9 mmHg (35.0-45.0); Site Drawn RIGHT RADIAL
--- NOTE | 2023-03-20 08:08 | PM.IMPN ---
Progress Note: A&P Assessment and Plan (1) Cellulitis of right leg: Code(s): L03.115 - Cellulitis of right lower limb Status: Acute Assessment and Plan: Rocephin started on admission 03/19 (2) Acute on chronic respiratory failure with hypoxia and hypercapnia: Code(s): J96.21 - Acute and chronic respiratory failure with hypoxia; J96.22 - Acute and chronic respiratory failure with hypercapnia Status: Acute Assessment and Plan: On 4 L oxygen at home with ventilator at night, ABG in the ER was consistent with acute on chronic hypercapnic and hypoxic respiratory failure Echo from 06/03 showed an EF of 45-50% with grade 1 diastolic dysfunction, no comment on pulmonary hypertension CTA chest 03/19 showed interstitial lung disease, elevated right hemidiaphragm, no significant edema nor infection noted Started on rocephin and azithromycin at admission 03/19 03/20: Continue BiPAP, consult pulmonology, check echo (3) Chronic obstructive pulmonary disease: Code(s): J44.9 - Chronic obstructive pulmonary disease, unspecified Status: Acute Assessment and Plan: Continue home prednisone of 10 mg daily, no indication for increasing steroid dose at this time Continue scheduled bronchodilators, LAMA, ICS (4) Hypertension: Code(s): I10 - Essential (primary) hypertension Status: Acute Assessment and Plan: Blood pressures were reviewed 03/20 Continue antihypertensives and monitor (5) Tobacco abuse: Code(s): Z72.0 - Tobacco use Status: Acute Assessment and Plan: He continues to smoke a pack of cigarettes a day. He does not seem to be motivated to quit. He does request a nicotine patch. 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 No overnight events noted. No chest pain. Still with SOB. No nausea, vomiting or diarrhea. No fevers or chills. Review of Systems Review of Systems: 12 point review of systems was assessed and was negative except as noted in the HPI Exam Narrative: General: No acute distress, alert and oriented per baseline HEENT: Atraumatic, normocephalic, mucous membranes moist CV: Regular rate and rhythm, S1, S2 Lungs: Diminished throughout, no wheeze Abdomen: Soft, nontender, nondistended Extremities: Normal to inspection Skin: No rashes noted, no lesions or wounds seen Psych: Euthymic, normal affect Objective Data Vital Signs Vital Signs: Vital Signs - 24 hr 03/19/23 11:30 03/19/23 11:56 03/19/23 12:15 Temperature 98.1 F Pulse Rate 91 90 87 Respiratory Rate 22 H 26 H 22 H Blood Pressure 143/74 H Pulse Oximetry 88 L 99 Oxygen Delivery Nasal Cannula BiPAP Oxygen Flow Rate 4 Fraction of Inspired Oxygen 03/19/23 12:24 03/19/23 13:16 03/19/23 13:22 Temperature Pulse Rate 81 90 Respiratory Rate 31 H 22 H Blood Pressure Pulse Oximetry 99 97 97 Oxygen Delivery BiPAP BiPAP BiPAP Oxygen Flow Rate Fraction of Inspired Oxygen 32 03/19/23 12:10 03/19/23 16:36 03/19/23 16:37 Temperature Pulse Rate 78 96 Respiratory Rate 29 H Blood Pressure Pulse Oximetry 99 99 Oxygen Delivery BiPAP BiPAP Oxygen Flow Rate Fraction of Inspired Oxygen 32 03/19/23 17:30 03/19/23 16:00 03/19/23 15:30 Temperature Pulse Rate 94 97 94 Respiratory Rate 12 22 H 15 Blood Pressure 147/85 H 142/95 H 144/98 H Pulse Oximetry 98 99 97 Oxyg
[2023-03-20] MEDS: FOLIC ACID 1 MG TABLET 3 MG PO (08:23)
[2023-03-20] MEDS: ARIPiprazole 2 MG TABLET PO (08:23)
[2023-03-20] MEDS: HYDROcodone/acetaminophen (*CRX) 5-325 MG TABLET 1 TAB PO (08:23)
[2023-03-20] MEDS: ATORVASTATIN 20 MG TABLET PO (08:23)
[2023-03-20] MEDS: VENLAFAXINE HCL XR 75 MG CAP.ER.24H 225 MG PO (08:24)
[2023-03-20] MEDS: lisinopriL 10 MG TABLET PO (08:24)
[2023-03-20] MEDS: ASPIRIN 81 MG ENTERIC TABLET PO (08:24)
[2023-03-20] MEDS: POTASSIUM CHLORIDE 10 MEQ TABLET.ER PO (08:24)
[2023-03-20] MEDS: predniSONE 10 MG TABLET PO (08:24)
[2023-03-20] MEDS: FUROSEMIDE 40 MG TABLET PO (08:24)
[2023-03-20] MEDS: carvediloL 25 MG TABLET PO ×2 (08:24→18:08)
[2023-03-20] MEDS: ENOXAPARIN 40 MG/0.4 ML SYRINGE SUB-Q (08:24)
[2023-03-20] MEDS: LIDOCAINE 5% PATCH 1 PATCH TOPICAL (08:33)
[2023-03-20] MEDS: BUDESONIDE RESPULE NEB 0.5 MG/2 ML AMP INHALATION (08:48)
--- NOTE | 2023-03-20 10:40 | PM.CNPUL ---
Assessment and Plan Assessment and plan (1) COPD exacerbation: Code(s): J44.1 - Chronic obstructive pulmonary disease with (acute) exacerbation Status: Acute Assessment and Plan: Patient with 100 pack year tobacco use, currently smoking 1 pack per day, PFTs 02/12/2022 with an FEV1 of 0.75 L, 23% predicted, moderate severe restriction with a TLC of 58% and DLCO 29%. Patient with chronic hypoxemic respiratory failure he tells me he wears 2 L at rest, 3 L with ambulation and 1 L at night. Patient has chronic hypercarbic respiratory failure on BiPAP 16/8 with a spontaneous rate. no bullous emphysema on his CT scan. patient has a paralyzed right hemidiaphragm. Patient Has psoriatic arthritis and is on methotrexate for 10 years and has been off of prednisone for the last month or so. 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 The patient had wheezing on exam and hypercarbic and hypoxemic respiratory failure with a blood gas of 7.29/95/97 on 4 L nasal cannula. I will treat the patient for COPD exacerbation: I will place the patient on Solu-Medrol 40 mg IV Q 6. I will place the patient on albuterol 2.5 mg nebs q.4 hours and ipratropium 0.5 mg nebs q.4 hours. agree with ceftriaxone and azithromycin for now. will discontinue inhaled steroids as patient is on systemic steroids. Will follow with you. (2) Acute on chronic respiratory failure with hypoxia and hypercapnia: Code(s): J96.21 - Acute and chronic respiratory failure with hypoxia; J96.22 - Acute and chronic respiratory failure with hypercapnia Status: Acute Assessment and Plan: Admitted to [facility] on 05/25/2022 for COPD exacerbation With chronic hypercarbic respiratory failure. His blood gas on BiPAP 16/8 and 30% was 7.40/53/64. Patient was switched to noninvasive ventilation with the AVAPS mode and orders on discharge were sent to [facility] for AVAPS-AE, rate of 18, tidal volume 500, EPAP minimum 5, EPAP maximum 12, pressure support minimum 10, pressure support maximum 20 with 4 L bleed in. blood gas on the morning prior to removal of these settings was 7.42/61/84. the [facility] tells me that they received orders from Dr. Robb to change the patient to BiPAP 16/8 with a rate of 1 which is used to a chain a spontaneous rate on the trilogy machine. I have a download from [employer] from 12/07/2022 through 03/07/2023. The patient is on a trilogy VERONICA machine with BiPAP ST with an EPAP of 8, IPAP of 16 and of breath rate of 1. Inspiratory time 0.9, rise time 3.0. % days used more than 4 hours is 100%. Average used on days used is 16.7 hours. Patient's average EPAP is 7.7, average peak pressure 15.2, average breath rate 14.6, average tidal volume 238, average minute ventilation 4.7 , average total leak 44.4, average unintentional leak 17.8. I am concerned BiPAP is not providing adequate minute ventilation as an outpatient. 03/20/23: The patient wore hospital BiPAP rate of 22, 18/6 with a blood gas at the end of the night of 7.34/88/70 The patient told me that he needed more air on the hospital BiPAP setting at 18/6 and I placed him on a noninvasive ventilation mode with the AVAPS with the rate of 18, tidal volume 500, EPAP of 5, minimal inspiratory pressure 6, maximal inspiratory pressure 25, inspiratory time 1.0, rise of 3 and 40% FiO2 and his saturations were 93%. I will check an overnight oximetry and ABG prior to removal of these AVAPS settings in the morning. History of Present Illness History of Present Illness Consult date: 03/20/23 Chief complaint: Acute on chronic hypoxemic respfailure, cellulitis Narrative: 03/20/2023: This is a new pulmonary consultation for COPD, right diaphragmatic par
[2023-03-20] MEDS: methylPREDNISolone SOD SUCC 40 MG VIAL IV PUSH (18:08)
[2023-03-21] VITALS (32 sets, daily range): BP systolic 107–142; BP diastolic 59–80; PULSE 84–116; RESP 18–27; TEMP 36.4–37; O2SAT 92–100
[2023-03-21] MEDS: ALBUTEROL SULFATE NEB 2.5 MG/3 ML INH INHALATION ×6 (00:10→20:18)
[2023-03-21] MEDS: IPRATROPIUM BR 0.02% INH SOLN 0.5 MG/2.5 ML VIAL INHALATION ×6 (00:10→20:18)
[2023-03-21] MEDS: methylPREDNISolone SOD SUCC 40 MG VIAL IV PUSH ×2 (00:15→05:39)
[2023-03-21] MEDS: oxyCODONE/ACETAMINOPHEN (*CRX) 10-325 MG TABLET 1 TAB PO ×3 (01:12→21:04)
[2023-03-21 04:56] LABS: Basophils Percent Auto 0.1 % (0.2-1.2); Hematocrit 31.9 % (42.0-52.0); Hemoglobin 9.2 g/dL (14.0-18.0); Immature Granulocyte Absolute 0.09 K/mm3 (0.00-0.031); Immature Granulocyte Percent A 0.7 % (0-0.5); Lymphocytes Absolute Auto 0.64 K/mm3 (0.9-3.2); Mean Corpuscular HGB Conc 28.8 g/dl (32-36); Mean Corpuscular Hemoglobin 28.7 pg (26-34); Mean Corpuscular Volume 99.4 fl (80-100); Mean Platelet Volume 9.9 fl (7.4-10.4); Monocytes Absolute Auto 0.3 K/mm3 (0.1-0.6); Monocytes Percent Auto 2.1 % (2.6-8.5); Neutrophils Absolute Auto 11.9 K/mm3 (1.3-6.7); Neutrophils Percent Auto 92.1 % (45.5-73.1); Platelet Count Result 223 k/mm3 (150-375); Red Blood Count 3.21 M/mm3 (4.6-6.20); Red Cell Distribution Width 16.9 % (11.5-14.5); White Blood Count 12.9 K/mm3 (4.5-10.0)
[2023-03-21 05:15] LABS: Alanine Aminotransferase 28 U/L (6-50); Albumin Level 3.3 g/dL (3.5-5.1); Alkaline Phosphatase 85 U/L (38-126); Aspartate Amino Transferase 35 U/L (17-59); Bilirubin,Total 0.3 mg/dL (0.2-1.3); Blood Urea Nitrogen 25 mg/dL (9-20); Carbon Dioxide > 40 mmol/L (22-30); Chloride 89 mmol/L (98-107); Estimated CRCL calculation 75 ml/min; Estimated Glomerular Filt Rate > 60; Glucose 170 mg/dL (65-110); Potassium 4.4 mmol/L (3.4-5.0); Sodium 135 mmol/L (137-145)
[2023-03-21 05:26] LABS: Hypochromasia 1+ (NORMAL); Platelet Estimate Adequate (Adequate); Schistocytes None Seen (NORMAL)
[2023-03-21 05:27] LABS: Stomatocytes 1+ (NORMAL)
[2023-03-21 05:28] LABS: Alveolar/Arterial O2 Gradient 113.3 mmHg; Fractional Inspired Oxygen 40 %; HCO3 ABG 42.8 mEq/l (22.0-26.0); Oxygen Content ABG 13.3 %vol (16.0-22.0); Oxygen Saturation ABG 93.2 % (95.0-100.0); Oxyhemoglobin 92.8 % THb (90.0-100.0); PO2 ABG 75.3 mmHg (80.0-100.0); PO2 FiO2 Ratio Arterial Blood 1.88 %; Total Hemoglobin 10.1 g/dL (12.0-18.0); pH ABG 7.325 (7.350-7.450)
[2023-03-21 05:29] LABS: Device NON-INVASIVE VENT; Modified Allen's Test Pass; Site Drawn RIGHT RADIAL
[2023-03-21 05:30] LABS: Non-Invasive Vent Rate 18 /MIN
[2023-03-21 05:31] LABS: Non-Invasive Expiratory Pressure 5 CMH2O
--- NOTE | 2023-03-21 08:08 | PM.PNPUL ---
Progress Note: A&P Assessment and Plan (1) COPD exacerbation: Code(s): J44.1 - Chronic obstructive pulmonary disease with (acute) exacerbation Status: Acute Assessment and Plan: GOLD grade 4 group E COPD Patient with 100 pack year tobacco use, currently smoking 1 pack per day, PFTs 02/12/2022 with an FEV1 of 0.75 L, 23% predicted, moderate severe restriction with a TLC of 58% and DLCO 29%. Patient with chronic hypoxemic respiratory failure he tells me he wears 2 L at rest, 3 L with ambulation and 1 L at night. Patient has chronic hypercarbic respiratory failure previously on AVAPS-AE and now on BiPAP 28/06 with a spontaneous rate. no bullous emphysema on his CT scan. patient has a paralyzed right hemidiaphragm. Patient has psoriatic arthritis and is on methotrexate for 10 years and has been off of prednisone for the last month or so. Marvin last outpatient office note on 02/20/22 the patient was to start azithromycin 3 times a week 03/20/23: Patient presents now with worsening shortness of breath, wheezing, cough, Green phlegm production, as he was finishing a steroid taper from his outpatient meteorology teacher. The patient had wheezing on exam and hypercarbic and hypoxemic respiratory failure with a blood gas of 7.29/95/97 on 4 L nasal cannula. I will treat the patient for COPD exacerbation: I will place the patient on Solu-Medrol 40 mg IV Q 6. I will place the patient on albuterol 2.5 mg nebs q.4 hours and ipratropium 0.5 mg nebs q.4 hours. agree with ceftriaxone and azithromycin for now. will discontinue inhaled steroids as patient is on systemic steroids. 03/21 Patient has remained on continuous noninvasive ventilation since 03/19 at 12 noon. said he got a little bit of sleep last night. Yesterday they took him off the BiPAP for 3-4 minutes and he had immediate desaturations and turned cyanotic and BiPAP was reinstituted. white blood cell count 12.9, creatinine 0.8. Patient with mild expiratory wheezes. Weight is 88.3. Plan: Decrease Solu-Medrol to 20 Q 6. continue albuterol and ipratropium nebulizers Q 4 hours. continue ceftriaxone and azithromycin, day 3 of both. noninvasive ventilation through the day as needed and continuous at night. Discussed with Dr. Alcala. Will follow with you. (2) Acute on chronic respiratory failure with hypoxia and hypercapnia: Code(s): J96.21 - Acute and chronic respiratory failure with hypoxia; J96.22 - Acute and chronic respiratory failure with hypercapnia Status: Acute Assessment and Plan: Admitted to [facility] on 05/25/2022 for COPD exacerbation With chronic hypercarbic respiratory failure. His blood gas on BiPAP 16/8 and 30% was 7.40/53/64. Patient was switched to noninvasive ventilation with the AVAPS mode and orders on discharge were sent to [facility] for AVAPS-AE, rate of 18, tidal volume 500, EPAP minimum 5, EPAP maximum 12, pressure support minimum 10, pressure support maximum 20 with 4 L bleed in. blood gas on the morning prior to removal of these settings was 7.42/61/84. the [facility] tells me that they received orders from Dr. Robb to change the patient to BiPAP 16/8 with a rate of 1 which is used to a chain a spontaneous rate on the trilogy machine. I have a download from [employer] from 12/07/2022 through 03/07/2023. The patient is on a trilogy VERONICA machine with BiPAP ST with an EPAP of 8, IPAP of 16 and of breath rate of 1. Inspiratory time 0.9, rise time 3.0. % days used more than 4 hours is 100%. Average used on days used is 16.7 hours. Patient's average EPAP is 7.7, average peak pressure 15.2, average breath rate 14.6, average tidal volume 238, average minute ventilation 4.7 , average total leak 44.4, average unintentional leak 17.8. I am concerned BiPAP is not providing adequate minute ventilation as an outpatient. 03/20/23: The patient wore hospital BiPAP rate of 22, 18/6 with a blood gas at the end of the night of 7.34/8
[2023-03-21] MEDS: ENOXAPARIN 40 MG/0.4 ML SYRINGE SUB-Q (09:22)
[2023-03-21] MEDS: ASPIRIN 81 MG ENTERIC TABLET PO (09:23)
[2023-03-21] MEDS: carvediloL 25 MG TABLET PO ×2 (09:23→18:35)
[2023-03-21] MEDS: POTASSIUM CHLORIDE 10 MEQ TABLET.ER PO (09:23)
[2023-03-21] MEDS: ATORVASTATIN 20 MG TABLET PO (09:24)
[2023-03-21] MEDS: ARIPiprazole 2 MG TABLET PO (09:24)
[2023-03-21] MEDS: FUROSEMIDE 40 MG TABLET PO (09:24)
[2023-03-21] MEDS: FOLIC ACID 1 MG TABLET 3 MG PO (09:24)
[2023-03-21] MEDS: VENLAFAXINE HCL XR 75 MG CAP.ER.24H 225 MG PO (09:24)
[2023-03-21] MEDS: lisinopriL 10 MG TABLET PO (09:24)
--- NOTE | 2023-03-21 09:59 | PM.IMPN ---
Progress Note: A&P Assessment and Plan (1) Cellulitis of right leg: Code(s): L03.115 - Cellulitis of right lower limb Status: Acute Assessment and Plan: Rocephin started on admission 03/19 Improving (2) Acute on chronic respiratory failure with hypoxia and hypercapnia: Code(s): J96.21 - Acute and chronic respiratory failure with hypoxia; J96.22 - Acute and chronic respiratory failure with hypercapnia Status: Acute Assessment and Plan: On 4 L oxygen at home during the day with a ventilator at night, ABG in the ER was consistent with acute on chronic hypercapnic and hypoxic respiratory failure. Echo from 06/03 showed an EF of 45-50% with grade 1 diastolic dysfunction, no comment on pulmonary hypertension. CTA chest 03/19 showed interstitial lung disease, elevated right hemidiaphragm, no significant edema nor infection noted. Started on rocephin and azithromycin at admission 03/19. Pulm consult appreciated, patient BIPAP dependent at this point, no further recommendations from pulm, likely a hospice candidate if no improvement in the next 24-48 hours. Repeat echo pending. (3) Chronic obstructive pulmonary disease: Code(s): J44.9 - Chronic obstructive pulmonary disease, unspecified Status: Acute Assessment and Plan: Continue home prednisone of 10 mg daily, no indication for increasing steroid dose at this time Continue scheduled bronchodilators, LAMA, ICS See above (4) Hypertension: Code(s): I10 - Essential (primary) hypertension Status: Acute Assessment and Plan: Blood pressures were reviewed 03/21 Continue antihypertensives and monitor (5) Tobacco abuse: Code(s): Z72.0 - Tobacco use Status: Acute Assessment and Plan: He continues to smoke a pack of cigarettes a day. He does not seem to be motivated to quit. He does request a nicotine patch. 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 No overnight events noted. No chest pain. Still with SOB. No nausea, vomiting or diarrhea. No fevers or chills. Review of Systems Review of Systems: 12 point review of systems was assessed and was negative except as noted in the HPI Exam Narrative: General: No acute distress, alert and oriented per baseline HEENT: Atraumatic, normocephalic, mucous membranes moist CV: Regular rate and rhythm, S1, S2 Lungs: Diminished throughout, no wheeze Abdomen: Soft, nontender, nondistended Extremities: Normal to inspection, erythema on inner thigh improved Skin: No rashes noted, no lesions or wounds seen Psych: Euthymic, normal affect Objective Data Vital Signs Vital Signs: Vital Signs - 24 hr 03/20/23 10:00 03/20/23 11:19 03/20/23 12:00 Temperature 98.3 F Pulse Rate 86 85 88 Respiratory Rate 23 H 22 H Blood Pressure 114/64 Pulse Oximetry 93 90 Oxygen Delivery BiPAP Fraction of Inspired Oxygen 03/20/23 12:00 03/20/23 12:00 03/20/23 14:00 Temperature Pulse Rate 96 90 Respiratory Rate Blood Pressure Pulse Oximetry 93 Oxygen Delivery BiPAP Fraction of Inspired Oxygen 45 03/20/23 15:50 03/20/23 15:54 03/20/23 16:10 Temperature Pulse Rate 82 83 85 Respiratory Rate 22 H 22 H 22 H Blood Pressure Pulse Oximetry 100 Oxygen Delivery BiPAP Fraction of Inspired Oxygen 03/20/23 16:00 03/20/23 16:00 03/20/23 16:00 Temperature 97 F L Pulse Rate 8
[2023-03-21] MEDS: LIDOCAINE 5% PATCH 1 PATCH TOPICAL (11:02)
[2023-03-21] MEDS: NICOTINE (*PBKC) 21 MG PATCH 1 PATCH TRANSDERM (11:02)
[2023-03-21] MEDS: methylPREDNISolone SOD SUCC 40 MG VIAL 20 MG IV PUSH ×2 (11:08→18:36)
[2023-03-21] MEDS: ONDANSETRON INJ 4 MG/2 ML VIAL IV PUSH (12:27)
[2023-03-22] VITALS (28 sets, daily range): BP systolic 100–124; BP diastolic 56–77; PULSE 73–124; RESP 18–26; TEMP 36.1–36.8; O2SAT 94–99
[2023-03-22] MEDS: ALBUTEROL SULFATE NEB 2.5 MG/3 ML INH INHALATION ×6 (04:00→19:57)
[2023-03-22] MEDS: IPRATROPIUM BR 0.02% INH SOLN 0.5 MG/2.5 ML VIAL INHALATION ×6 (04:00→19:57)
--- NOTE | 2023-03-22 06:17 | PCRCNOTE ---
An abg was ordered for pt to be obtained prior to pt coming off of bipap (AVAPS), due to [employer] being down most of the night, RT did not know about the order. Patient came off bipap at 0420, abg not obtained as it has been 2 hours since pt was on bipap.
--- NOTE | 2023-03-22 06:38 | PC.NURSE ---
Paper documentation exists on this patient due to [employer] [facility] downtime on 03/21/23 from to [03/22/23 7pm to 7am] .
[2023-03-22 07:31] LABS: Hemoglobin 9.1 g/dL (14.0-18.0); Immature Granulocyte Absolute 0.13 K/mm3 (0.00-0.031); Lymphocytes Absolute Auto 0.45 K/mm3 (0.9-3.2); Lymphocytes Percent Auto 3.3 % (18.3-44.2); Mean Corpuscular HGB Conc 28.4 g/dl (32-36); Mean Corpuscular Hemoglobin 28.3 pg (26-34); Mean Corpuscular Volume 99.7 fl (80-100); Mean Platelet Volume 10.8 fl (7.4-10.4); Monocytes Absolute Auto 0.7 K/mm3 (0.1-0.6); Monocytes Percent Auto 4.8 % (2.6-8.5); Neutrophils Absolute Auto 12.4 K/mm3 (1.3-6.7); Neutrophils Percent Auto 90.9 % (45.5-73.1); Platelet Count Result 237 k/mm3 (150-375); Red Blood Count 3.21 M/mm3 (4.6-6.20); Red Cell Distribution Width 16.7 % (11.5-14.5); White Blood Count 13.7 K/mm3 (4.5-10.0)
[2023-03-22 07:54] LABS: Alanine Aminotransferase 29 U/L (6-50); Albumin Level 3.4 g/dL (3.5-5.1); Alkaline Phosphatase 95 U/L (38-126); Aspartate Amino Transferase 33 U/L (17-59); Bilirubin,Total 0.3 mg/dL (0.2-1.3); Blood Urea Nitrogen 28 mg/dL (9-20); Calcium 8.1 mg/dL (8.4-10.2); Carbon Dioxide > 40 mmol/L (22-30); Chloride 87 mmol/L (98-107); Estimated CRCL calculation 75 ml/min; Estimated Glomerular Filt Rate > 60; Glucose 207 mg/dL (65-110); Sodium 133 mmol/L (137-145)
--- NOTE | 2023-03-22 08:42 | PM.PNPUL ---
Progress Note: A&P Assessment and Plan (1) COPD exacerbation: Code(s): J44.1 - Chronic obstructive pulmonary disease with (acute) exacerbation Status: Acute Assessment and Plan: GOLD grade 4 group E COPD Patient with 100 pack year tobacco use, currently smoking 1 pack per day, PFTs 02/12/2022 with an FEV1 of 0.75 L, 23% predicted, moderate severe restriction with a TLC of 58% and DLCO 29%. Patient with chronic hypoxemic respiratory failure he tells me he wears 2 L at rest, 3 L with ambulation and 1 L at night. Patient has chronic hypercarbic respiratory failure previously on AVAPS-AE and now on BiPAP 28/06 with a spontaneous rate. no bullous emphysema on his CT scan. patient has a paralyzed right hemidiaphragm. Patient has psoriatic arthritis and is on methotrexate for 10 years and has been off of prednisone for the last month or so. Marvin last outpatient office note on 02/20/22 the patient was to start azithromycin 3 times a week 03/20/23: Patient presents now with worsening shortness of breath, wheezing, cough, Green phlegm production, as he was finishing a steroid taper from his outpatient inserting operator. The patient had wheezing on exam and hypercarbic and hypoxemic respiratory failure with a blood gas of 7.29/95/97 on 4 L nasal cannula. I will treat the patient for COPD exacerbation: I will place the patient on Solu-Medrol 40 mg IV Q 6. I will place the patient on albuterol 2.5 mg nebs q.4 hours and ipratropium 0.5 mg nebs q.4 hours. agree with ceftriaxone and azithromycin for now. will discontinue inhaled steroids as patient is on systemic steroids. 03/21 Patient has remained on continuous noninvasive ventilation since 03/19 at 12 noon. said he got a little bit of sleep last night. Yesterday they took him off the BiPAP for 3-4 minutes and he had immediate desaturations and turned cyanotic and BiPAP was reinstituted. white blood cell count 12.9, creatinine 0.8. Patient with mild expiratory wheezes. Weight is 88.3. Plan: Decrease Solu-Medrol to 20 Q 6. continue albuterol and ipratropium nebulizers Q 4 hours. continue ceftriaxone and azithromycin, day 3 of both. noninvasive ventilation through the day as needed and continuous at night. 03/22 patient is improved today. He tells me that his breathing is better and at his baseline. His cough is better. He continues to have loose phlegm. Overall he is very weak. He is afebrile. Creatinine is 0.8. Currently is on 3.5 L nasal cannula with saturations 95% in no respiratory distress eating breakfast. No wheezes on exam today. Plan: Change to prednisone 40 mg PO Q day (day 4). continue albuterol and ipratropium nebulizers Q 4 hours. Continue ceftriaxone and azithromycin, day 4 of both. noninvasive ventilation through the day as needed and continuous at night. If patient is able to tolerate his home noninvasive ventilator with new settings and is clinically stable possible discharge on 03/23/2023 on these pulmonary medicines: prednisone 40 mg PO Q day X3 days, 30 mg PO Q day X 3 days then 20 mg PO until follow up. Levaquin 750 mg PO Q day X 2 days Trelegy 100-62.5-25 at 1 puff q.day Rescue albuterol inhaler 2 puffs q.4 hours p.r.n. shortness of breath or wheezing. Rescue DuoNebs q.4 hours p.r.n. shortness of breath or wheezing noninvasive ventilation at night with a trilogy and oxygen bleed in per ON and ABG on 03/23/23. oxygen at rest and with ambulation per formal home O2 assessment on the day of discharge. Will follow with you. (2) Acute on chronic respiratory failure with hypoxia and hypercapnia: Code(s): J96.21 - Acute and chronic respiratory failure with hypoxia; J96.22 - Acute and chronic respiratory failure with hypercapnia Status: Acute Assessment and Plan: Admitted to [facility] on 05/25/2022 for COPD exacerbation With chronic hypercarbic respiratory failure. His blood gas on BiPAP 16/8 and 30% was 7.40/53/64. Patient wa
[2023-03-22 09:29] LABS: Anisocytosis 1+ (NORMAL); Hypochromasia 2+ (NORMAL); Platelet Estimate Adequate (Adequate); Schistocytes None Seen (NORMAL); Stomatocytes 1+ (NORMAL)
[2023-03-22] MEDS: FUROSEMIDE 40 MG TABLET PO (09:34)
[2023-03-22] MEDS: FOLIC ACID 1 MG TABLET 3 MG PO (09:34)
[2023-03-22] MEDS: lisinopriL 10 MG TABLET PO (09:34)
[2023-03-22] MEDS: ENOXAPARIN 40 MG/0.4 ML SYRINGE SUB-Q (09:34)
[2023-03-22] MEDS: ATORVASTATIN 20 MG TABLET PO (09:34)
[2023-03-22] MEDS: VENLAFAXINE HCL XR 75 MG CAP.ER.24H 225 MG PO (09:34)
[2023-03-22] MEDS: ARIPiprazole 2 MG TABLET PO (09:34)
[2023-03-22] MEDS: ASPIRIN 81 MG ENTERIC TABLET PO (09:35)
[2023-03-22] MEDS: carvediloL 25 MG TABLET PO ×2 (09:35→16:05)
[2023-03-22] MEDS: POTASSIUM CHLORIDE 10 MEQ TABLET.ER PO (09:35)
[2023-03-22] MEDS: LIDOCAINE 5% PATCH 1 PATCH TOPICAL (09:42)
[2023-03-22] MEDS: predniSONE 20 MG TABLET 40 MG PO (09:43)
--- NOTE | 2023-03-22 14:36 | PM.IMPN ---
Progress Note: A&P Assessment and Plan (1) Acute on chronic respiratory failure with hypoxia and hypercapnia: Code(s): J96.21 - Acute and chronic respiratory failure with hypoxia; J96.22 - Acute and chronic respiratory failure with hypercapnia Status: Acute Assessment and Plan: On 4 L oxygen at home during the day with a ventilator at night, ABG in the ER was consistent with acute on chronic hypercapnic and hypoxic respiratory failure. Echo from 06/03 showed an EF of 45-50% with grade 1 diastolic dysfunction, no comment on pulmonary hypertension. CTA chest 03/19 showed interstitial lung disease, elevated right hemidiaphragm, no significant edema nor infection noted. Started on rocephin and azithromycin at admission 03/19. Pulm consult appreciated. Echo showing EF 52% and Grade I diastolic dysfunction. Patient BIPAP dependent at this point. Able to come off but only off for 1 hour today. Continue to wean BiPAP off during the day as toelrated. Likely a hospice candidate given the severity of his lung disease (2) Chronic obstructive pulmonary disease: Code(s): J44.9 - Chronic obstructive pulmonary disease, unspecified Status: Acute Assessment and Plan: Continue home prednisone of 10 mg daily, no indication for increasing steroid dose at this time Continue scheduled bronchodilators, LAMA, ICS See above (3) Cellulitis of right leg: Code(s): L03.115 - Cellulitis of right lower limb Status: Acute Assessment and Plan: Rocephin started on admission 03/19 Improving. (4) Hypertension: Code(s): I10 - Essential (primary) hypertension Status: Acute Assessment and Plan: Patient's blood pressure was reviewed on 03/22 Blood pressure remains well controlled. Will continue to monitor (5) Tobacco abuse: Code(s): Z72.0 - Tobacco use Status: Acute Assessment and Plan: He continues to smoke a pack of cigarettes a day. He does not seem to be motivated to quit. He does request a nicotine patch. 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 Assuming care. Chart reviewed. Came off his BiPAP for about an hour today. No chest pain. No shortness of breath with BiPAP place. Exam Narrative: AF 98.1 124/77 100 24 95% BiPAP Gen - NARD lying almost flat in bed with bipap in place Chest - left base inspiratory crackles.coarse BS with end expiratory wheezes CV - RRR S1/S2. Tele showing occasional sinus tachycardia Abd - Soft, NT/ND, Positive BS Ext - No pedal edema Psych - Nml mood and affect Skin - Warm and dry Objective Data Vital Signs Vital Signs: Vital Signs - 24 hr 03/21/23 16:50 03/21/23 16:57 03/21/23 17:11 Temperature Pulse Rate 96 97 Respiratory Rate 20 24 H 20 Blood Pressure Pulse Oximetry 95 Oxygen Delivery BiPAP Oxygen Flow Rate Fraction of Inspired Oxygen 03/21/23 16:00 03/21/23 16:00 03/21/23 18:00 Temperature 98.1 F Pulse Rate 86 97 109 H Respiratory Rate 22 H Blood Pressure 115/72 Pulse Oximetry 100 Oxygen Delivery Oxygen Flow Rate Fraction of Inspired Oxygen 03/21/23 18:35 03/21/23 16:00 03/21/23 19:55 Temperature 97.9 F Pulse Rate 102 H 102 H Respiratory Rate 22 H Blood Pressure 107/59 L Pulse Oximetry 95 95 Oxygen Delivery BiPAP Oxygen Flow Rate Fraction of Inspired Oxygen 35 03/21/23 20:18 03/21/23 20:23 03/21/23 20:30 Tem
--- NOTE | 2023-03-22 14:49 | PCRCNOTE ---
SPOKE WITH LEOPOLDO AT [facility] ABOUT PT'S CHANGE IN TRILOGY SETTINGS. FAXED NEW ORDER. [facility] HAS ONLY ONE THERAPIST TODAY AND CHANGES MAY NOT BE DONE UNTIL TOMORROW. DR. SANTANA NOTIFIED.
[2023-03-22] MEDS: oxyCODONE/ACETAMINOPHEN (*CRX) 10-325 MG TABLET 1 TAB PO (16:13)
[2023-03-23] VITALS (29 sets, daily range): BP systolic 125–174; BP diastolic 51–94; PULSE 84–111; RESP 20–25; TEMP 35.7–36.6; O2SAT 90–100
[2023-03-23] MEDS: oxyCODONE/ACETAMINOPHEN (*CRX) 10-325 MG TABLET 1 TAB PO ×2 (03:02→20:17)
[2023-03-23 06:25] LABS: Alveolar/Arterial O2 Gradient 86.5 mmHg; Fractional Inspired Oxygen 36 %; HCO3 ABG 51.9 mEq/l (22.0-26.0); Oxygen Content ABG 13.6 %vol (16.0-22.0); Oxygen Saturation ABG 92.5 % (95.0-100.0); Oxyhemoglobin 92.8 % THb (90.0-100.0); PO2 ABG 69.1 mmHg (80.0-100.0); PO2 FiO2 Ratio Arterial Blood 1.92 %; Total Hemoglobin 10.4 g/dL (12.0-18.0); pH ABG 7.393 (7.350-7.450)
[2023-03-23 06:28] LABS: Device BIPAP; Modified Allen's Test Pass; PCO2 ABG 87.1 mmHg (35.0-45.0); Site Drawn LEFT RADIAL
[2023-03-23 06:29] LABS: Expiratory Pressure 15 cmH2O; Inspiratory Pressure 25 cmH2O
--- NOTE | 2023-03-23 06:30 | PCRCNOTE ---
ABG drawn while pt on home trilogy AVAPS settings. vt- 550, rr12, epap 5-15 ps 6-25. critical pco2 87.1
[2023-03-23] MEDS: IPRATROPIUM BR 0.02% INH SOLN 0.5 MG/2.5 ML VIAL INHALATION ×4 (07:43→21:00)
[2023-03-23] MEDS: ALBUTEROL SULFATE NEB 2.5 MG/3 ML INH INHALATION ×4 (07:43→21:00)
[2023-03-23] MEDS: ATORVASTATIN 20 MG TABLET PO (08:39)
[2023-03-23] MEDS: ARIPiprazole 2 MG TABLET PO (08:39)
[2023-03-23] MEDS: predniSONE 20 MG TABLET 40 MG PO (08:39)
[2023-03-23] MEDS: FOLIC ACID 1 MG TABLET 3 MG PO (08:40)
[2023-03-23] MEDS: carvediloL 25 MG TABLET PO ×2 (08:40→16:55)
[2023-03-23] MEDS: ASPIRIN 81 MG ENTERIC TABLET PO (08:41)
[2023-03-23] MEDS: lisinopriL 10 MG TABLET PO (08:41)
[2023-03-23] MEDS: POTASSIUM CHLORIDE 10 MEQ TABLET.ER PO (08:42)
[2023-03-23] MEDS: VENLAFAXINE HCL XR 75 MG CAP.ER.24H 225 MG PO (08:42)
[2023-03-23] MEDS: ENOXAPARIN 40 MG/0.4 ML SYRINGE SUB-Q (08:43)
[2023-03-23] MEDS: FUROSEMIDE 40 MG TABLET PO (08:43)
[2023-03-23] MEDS: NICOTINE (*PBKC) 21 MG PATCH 1 PATCH TRANSDERM (08:49)
[2023-03-23] MEDS: LIDOCAINE 5% PATCH 1 PATCH TOPICAL (08:49)
[2023-03-23 09:24] LABS: Basophils Percent Auto 0.1 % (0.2-1.2); Eosinophils Percent Auto 0.1 % (0-4.4); Hemoglobin 9.4 g/dL (14.0-18.0); Immature Granulocyte Absolute 0.09 K/mm3 (0.00-0.031); Immature Granulocyte Percent A 0.6 % (0-0.5); Lymphocytes Absolute Auto 1.37 K/mm3 (0.9-3.2); Lymphocytes Percent Auto 9.2 % (18.3-44.2); Mean Corpuscular HGB Conc 28.5 g/dl (32-36); Mean Corpuscular Hemoglobin 28.3 pg (26-34); Mean Corpuscular Volume 99.4 fl (80-100); Mean Platelet Volume 10.9 fl (7.4-10.4); Monocytes Absolute Auto 2.4 K/mm3 (0.1-0.6); Monocytes Percent Auto 16.2 % (2.6-8.5); Neutrophils Absolute Auto 10.9 K/mm3 (1.3-6.7); Neutrophils Percent Auto 73.8 % (45.5-73.1); Platelet Count Result 228 k/mm3 (150-375); Red Blood Count 3.32 M/mm3 (4.6-6.20); Red Cell Distribution Width 16.7 % (11.5-14.5); White Blood Count 14.8 K/mm3 (4.5-10.0)
[2023-03-23 09:42] LABS: Alanine Aminotransferase 34 U/L (6-50); Albumin Level 3.5 g/dL (3.5-5.1); Alkaline Phosphatase 80 U/L (38-126); Aspartate Amino Transferase 42 U/L (17-59); Bilirubin,Total 0.5 mg/dL (0.2-1.3); Blood Urea Nitrogen 34 mg/dL (9-20); Calcium 7.9 mg/dL (8.4-10.2); Carbon Dioxide > 40 mmol/L (22-30); Chloride 87 mmol/L (98-107); Estimated CRCL calculation 85 ml/min; Estimated Glomerular Filt Rate > 60; Glucose 93 mg/dL (65-110); Potassium 4.1 mmol/L (3.4-5.0); Sodium 133 mmol/L (137-145)
[2023-03-23 10:59] LABS: Anisocytosis 1+ (NORMAL); Platelet Estimate Adequate (Adequate); Schistocytes None Seen (NORMAL)
--- NOTE | 2023-03-23 11:59 | PM.PNPUL ---
Progress Note: A&P Assessment and Plan (1) COPD exacerbation: Code(s): J44.1 - Chronic obstructive pulmonary disease with (acute) exacerbation Status: Acute Assessment and Plan: GOLD grade 4 group E COPD Patient with 100 pack year tobacco use, currently smoking 1 pack per day, PFTs 02/12/2022 with an FEV1 of 0.75 L, 23% predicted, moderate severe restriction with a TLC of 58% and DLCO 29%. Patient with chronic hypoxemic respiratory failure he tells me he wears 2 L at rest, 3 L with ambulation and 1 L at night. Patient has chronic hypercarbic respiratory failure previously on AVAPS-AE and now on BiPAP 28/06 with a spontaneous rate. no bullous emphysema on his CT scan. patient has a paralyzed right hemidiaphragm. Patient has psoriatic arthritis and is on methotrexate for 10 years and has been off of prednisone for the last month or so. Marvin last outpatient office note on 02/20/22 the patient was to start azithromycin 3 times a week 03/20/23: Patient presents now with worsening shortness of breath, wheezing, cough, Green phlegm production, as he was finishing a steroid taper from his outpatient crust sorter. The patient had wheezing on exam and hypercarbic and hypoxemic respiratory failure with a blood gas of 7.29/95/97 on 4 L nasal cannula. I will treat the patient for COPD exacerbation: I will place the patient on Solu-Medrol 40 mg IV Q 6. I will place the patient on albuterol 2.5 mg nebs q.4 hours and ipratropium 0.5 mg nebs q.4 hours. agree with ceftriaxone and azithromycin for now. will discontinue inhaled steroids as patient is on systemic steroids. 03/21 Patient has remained on continuous noninvasive ventilation since 03/19 at 12 noon. said he got a little bit of sleep last night. Yesterday they took him off the BiPAP for 3-4 minutes and he had immediate desaturations and turned cyanotic and BiPAP was reinstituted. white blood cell count 12.9, creatinine 0.8. Patient with mild expiratory wheezes. Weight is 88.3. Plan: Decrease Solu-Medrol to 20 Q 6. continue albuterol and ipratropium nebulizers Q 4 hours. continue ceftriaxone and azithromycin, day 3 of both. noninvasive ventilation through the day as needed and continuous at night. 03/22 patient is improved today. He tells me that his breathing is better and at his baseline. His cough is better. He continues to have loose phlegm. Overall he is very weak. He is afebrile. Creatinine is 0.8. Currently is on 3.5 L nasal cannula with saturations 95% in no respiratory distress eating breakfast. No wheezes on exam today. Plan: Change to prednisone 40 mg PO Q day (day 4). continue albuterol and ipratropium nebulizers Q 4 hours. Continue ceftriaxone and azithromycin, day 4 of both. noninvasive ventilation through the day as needed and continuous at night. 03/23 Currently the patient tells me he is breathing at his baseline with baseline level of cough and phlegm production. He has bilateral wheezing. He is currently on 4 L nasal cannula with saturations 94%. This morning the patient was have desaturations and the nurse placed him on the hospital noninvasive ventilator with 40% FiO2. Plan: Will monitor the patient in the hospital today on prednisone 40 mg PO Q day (day 4). continue albuterol and ipratropium nebulizers Q 4 hours. Continue ceftriaxone and azithromycin, day 5 of both. noninvasive ventilation through the day as needed and continuous at night. If patient is able to tolerate his home noninvasive ventilator with 6L bleed in and is clinically stable possible discharge on 03/24/2023 on these pulmonary medicines: prednisone 40 mg PO Q day X3 days, 30 mg PO Q day X 3 days then 20 mg PO Q.day x3 days, then 10 mg p.o. q.day x3 days. Levaquin 750 mg PO Q day X 2 days Trelegy 100-62.5-25 at 1 puff q.day Rescue albuterol inhaler 2 puffs q.4 hours p.r.n. shortness of breath or wheezing. Rescue DuoNebs q.4 hours p.r.n. shortness of breath or wheezi
[2023-03-23] MEDS: HYDROcodone/acetaminophen (*CRX) 5-325 MG TABLET 1 TAB PO (13:41)
--- NOTE | 2023-03-23 15:56 | PM.IMPN ---
Progress Note: A&P Assessment and Plan (1) Acute on chronic respiratory failure with hypoxia and hypercapnia: Code(s): J96.21 - Acute and chronic respiratory failure with hypoxia; J96.22 - Acute and chronic respiratory failure with hypercapnia Status: Acute Assessment and Plan: On 4 L oxygen at home during the day with a Trilogy when sleeping ABG in the ER was consistent with acute on chronic hypercapnic and hypoxic respiratory failure. CTA chest 03/19 showed interstitial lung disease, elevated right hemidiaphragm, no significant edema nor infection noted. Echo showing EF 52% and Grade I diastolic dysfunction. Started on Rocephin and azithromycin at admission 03/19. Pulm consulted and their input appreciated. ABG today . bipap Patient BIPAP dependent at this point. Able to come off for short periods of time. Discussed with him about hospice and comfort measures. He is agreeable and would like to talk to the car coordinator about hospice. Continue to wean Trilogy off during the day as tolerated. Not much more that can be offered. Possible home tomorrow per pulmonary note. (2) Chronic obstructive pulmonary disease: Code(s): J44.9 - Chronic obstructive pulmonary disease, unspecified Status: Acute Assessment and Plan: Continue higher dose prednisone Continue scheduled bronchodilators See above (3) Cellulitis of right leg: Code(s): L03.115 - Cellulitis of right lower limb Status: Acute Assessment and Plan: Rocephin started on admission 03/19 Improving. (4) Hypertension: Code(s): I10 - Essential (primary) hypertension Status: Acute Assessment and Plan: Patient's blood pressure was reviewed on 03/23 Blood pressure remains reasonably well controlled. Will continue to monitor (5) Tobacco abuse: Code(s): Z72.0 - Tobacco use Status: Acute Assessment and Plan: He continues to smoke a pack of cigarettes a day. He does not seem to be motivated to quit. Continue nicotine patch. 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 Was on home unit but dropped to 70% requiring Hospital BiPAP unit for a while. He is back on his home unit and FiO2 increased. He feels SOB. Cough productive of thin mucous. Exam Narrative: AF 96.7 125/72 87 22 92% 4L Gen - NARD sitting at the side of the bed. Chest - diffuse expiratory wheezes CV - RRR S1/S2. Tele showing no significant dysrhythmias Abd - Soft, NT/ND, Positive BS Ext - No pedal edema Psych - Nml mood and affect Skin - Warm and dry Objective Data Vital Signs Vital Signs: Vital Signs - 24 hr 03/22/23 16:05 03/22/23 16:04 03/22/23 16:00 Temperature Pulse Rate 96 98 Respiratory Rate 26 H Blood Pressure Pulse Oximetry 99 96 Oxygen Delivery BiPAP BiPAP Oxygen Flow Rate Fraction of Inspired Oxygen 35 03/22/23 16:00 03/22/23 16:00 03/22/23 18:00 Temperature 97.8 F Pulse Rate 98 100 104 H Respiratory Rate 18 Blood Pressure 122/75 Pulse Oximetry 96 Oxygen Delivery Oxygen Flow Rate Fraction of Inspired Oxygen 03/22/23 19:36 03/22/23 19:58 03/22/23 19:58 Temperature 97.1 F L Pulse Rate 104 H 96 96 Respiratory Rate 20 26 H 26 H Blood Pressure 100/58 L Pulse Oximetry 94 98 Oxygen Delivery BiPAP Oxygen Flow Rate Fraction of Inspired Oxygen 03/22/23 19:58 03/22/23 20:25 03/22/23 20:00 Tempera
[2023-03-24] VITALS (20 sets, daily range): BP systolic 103–164; BP diastolic 67–96; PULSE 88–110; RESP 18–24; TEMP 35.9–36.4; O2SAT 88–100
[2023-03-24 04:22] LABS: Basophils Percent Auto 0.2 % (0.2-1.2); Eosinophils Absolute Auto 0.1 K/mm3 (0-0.3); Eosinophils Percent Auto 0.5 % (0-4.4); Hematocrit 33.6 % (42.0-52.0); Hemoglobin 9.9 g/dL (14.0-18.0); Immature Granulocyte Absolute 0.14 K/mm3 (0.00-0.031); Immature Granulocyte Percent A 1.1 % (0-0.5); Lymphocytes Absolute Auto 1.51 K/mm3 (0.9-3.2); Lymphocytes Percent Auto 12.3 % (18.3-44.2); Mean Corpuscular HGB Conc 29.5 g/dl (32-36); Mean Corpuscular Hemoglobin 28.9 pg (26-34); Mean Platelet Volume 10.7 fl (7.4-10.4); Monocytes Absolute Auto 2.3 K/mm3 (0.1-0.6); Monocytes Percent Auto 18.4 % (2.6-8.5); Neutrophils Absolute Auto 8.3 K/mm3 (1.3-6.7); Neutrophils Percent Auto 67.5 % (45.5-73.1); Platelet Count Result 238 k/mm3 (150-375); Red Blood Count 3.43 M/mm3 (4.6-6.20); Red Cell Distribution Width 16.3 % (11.5-14.5); White Blood Count 12.3 K/mm3 (4.5-10.0)
[2023-03-24 04:36] LABS: Alanine Aminotransferase 43 U/L (6-50); Albumin Level 3.6 g/dL (3.5-5.1); Alkaline Phosphatase 85 U/L (38-126); Aspartate Amino Transferase 51 U/L (17-59); Bilirubin,Total 0.4 mg/dL (0.2-1.3); Blood Urea Nitrogen 26 mg/dL (9-20); Calcium 7.9 mg/dL (8.4-10.2); Carbon Dioxide > 40 mmol/L (22-30); Chloride 84 mmol/L (98-107); Estimated CRCL calculation 85 ml/min; Estimated Glomerular Filt Rate > 60; Glucose 194 mg/dL (65-110); Potassium 3.5 mmol/L (3.4-5.0); Sodium 131 mmol/L (137-145)
[2023-03-24] MEDS: oxyCODONE/ACETAMINOPHEN (*CRX) 10-325 MG TABLET 1 TAB PO ×2 (04:44→13:39)
[2023-03-24 04:49] LABS: Anisocytosis 1+ (NORMAL); Platelet Estimate Adequate (Adequate); Spherocytes 1+ (NORMAL)
[2023-03-24 04:50] LABS: Hypochromasia 2+ (NORMAL); Schistocytes None Seen (NORMAL)
--- NOTE | 2023-03-24 08:39 | PM.PNPUL ---
Progress Note: A&P Assessment and Plan (1) COPD exacerbation: Code(s): J44.1 - Chronic obstructive pulmonary disease with (acute) exacerbation Status: Acute Assessment and Plan: GOLD grade 4 group E COPD Patient with 100 pack year tobacco use, currently smoking 1 pack per day, PFTs 02/12/2022 with an FEV1 of 0.75 L, 23% predicted, moderate severe restriction with a TLC of 58% and DLCO 29%. Patient with chronic hypoxemic respiratory failure he tells me he wears 2 L at rest, 3 L with ambulation and 1 L at night. Patient has chronic hypercarbic respiratory failure previously on AVAPS-AE and now on BiPAP 28/06 with a spontaneous rate. no bullous emphysema on his CT scan. patient has a paralyzed right hemidiaphragm. Patient has psoriatic arthritis and is on methotrexate for 10 years and has been off of prednisone for the last month or so. Marvin last outpatient office note on 02/20/22 the patient was to start azithromycin 3 times a week 03/20/23: Patient presents now with worsening shortness of breath, wheezing, cough, Green phlegm production, as he was finishing a steroid taper from his outpatient housing assistant property manager. The patient had wheezing on exam and hypercarbic and hypoxemic respiratory failure with a blood gas of 7.29/95/97 on 4 L nasal cannula. I will treat the patient for COPD exacerbation: I will place the patient on Solu-Medrol 40 mg IV Q 6. I will place the patient on albuterol 2.5 mg nebs q.4 hours and ipratropium 0.5 mg nebs q.4 hours. agree with ceftriaxone and azithromycin for now. will discontinue inhaled steroids as patient is on systemic steroids. 03/21 Patient has remained on continuous noninvasive ventilation since 03/19 at 12 noon. said he got a little bit of sleep last night. Yesterday they took him off the BiPAP for 3-4 minutes and he had immediate desaturations and turned cyanotic and BiPAP was reinstituted. white blood cell count 12.9, creatinine 0.8. Patient with mild expiratory wheezes. Weight is 88.3. Plan: Decrease Solu-Medrol to 20 Q 6. continue albuterol and ipratropium nebulizers Q 4 hours. continue ceftriaxone and azithromycin, day 3 of both. noninvasive ventilation through the day as needed and continuous at night. 03/22 patient is improved today. He tells me that his breathing is better and at his baseline. His cough is better. He continues to have loose phlegm. Overall he is very weak. He is afebrile. Creatinine is 0.8. Currently is on 3.5 L nasal cannula with saturations 95% in no respiratory distress eating breakfast. No wheezes on exam today. Plan: Change to prednisone 40 mg PO Q day (day 4). continue albuterol and ipratropium nebulizers Q 4 hours. Continue ceftriaxone and azithromycin, day 4 of both. noninvasive ventilation through the day as needed and continuous at night. 03/23 Currently the patient tells me he is breathing at his baseline with baseline level of cough and phlegm production. He has bilateral wheezing. He is currently on 4 L nasal cannula with saturations 94%. This morning the patient was have desaturations and the nurse placed him on the hospital noninvasive ventilator with 40% FiO2. Plan: Will monitor the patient in the hospital today on prednisone 40 mg PO Q day (day 4). continue albuterol and ipratropium nebulizers Q 4 hours. Continue ceftriaxone and azithromycin, day 5 of both. noninvasive ventilation through the day as needed and continuous at night. 03/24 Patient states he is breathing better than he has in a few months. He says he does have cough with phlegm production and currently he was on 3 L with saturation 100% and I decreased him to 2 L nasal cannula saturations were 96%. His white blood cell count is 12.3, his creatinine is 0.7. Patient states he is ready to go home today. Once the patient's noninvasive ventilator has been adjusted per [employer] he is ready to be discharged on these pulmonary medications: prednisone 40 mg PO Q day X3
[2023-03-24] MEDS: HYDROcodone/acetaminophen (*CRX) 5-325 MG TABLET 1 TAB PO (08:59)
[2023-03-24] MEDS: POTASSIUM CHLORIDE 10 MEQ TABLET.ER PO (08:59)
[2023-03-24] MEDS: ARIPiprazole 2 MG TABLET PO (09:00)
[2023-03-24] MEDS: FUROSEMIDE 40 MG TABLET PO (09:00)
[2023-03-24] MEDS: ATORVASTATIN 20 MG TABLET PO (09:00)
[2023-03-24] MEDS: carvediloL 25 MG TABLET PO (09:00)
[2023-03-24] MEDS: VENLAFAXINE HCL XR 75 MG CAP.ER.24H 225 MG PO (09:00)
[2023-03-24] MEDS: FOLIC ACID 1 MG TABLET 3 MG PO (09:00)
[2023-03-24] MEDS: lisinopriL 10 MG TABLET PO (09:00)
[2023-03-24] MEDS: ASPIRIN 81 MG ENTERIC TABLET PO (09:00)
[2023-03-24] MEDS: predniSONE 20 MG TABLET 40 MG PO (09:00)
[2023-03-24] MEDS: ENOXAPARIN 40 MG/0.4 ML SYRINGE SUB-Q (09:01)
[2023-03-24] MEDS: LIDOCAINE 5% PATCH 1 PATCH TOPICAL (09:15)
[2023-03-24] MEDS: NICOTINE (*PBKC) 21 MG PATCH 1 PATCH TRANSDERM (09:15)
[2023-03-24] MEDS: ALBUTEROL SULFATE NEB 2.5 MG/3 ML INH INHALATION ×2 (09:33→12:17)
[2023-03-24] MEDS: IPRATROPIUM BR 0.02% INH SOLN 0.5 MG/2.5 ML VIAL INHALATION ×2 (09:33→12:17)
--- NOTE | 2023-03-24 10:21 | HOMEO2EVAL ---
Evaluation was performed at [facility] Home Oxygen Evaluation RC: Home Oxygen (O2) Evaluation Start: 03/24/23 08:13 Freq: ONCE Status: Active Protocol: RPE Activity Type Activity Date Activity User E-sign Co-sign Detail Recorded Client Recorded Date Recorded By Document 03/24/23 09:45 DJO [email or web address] 03/24/23 10:21 DJO Document 03/24/23 09:50 [email or web address] [email or web address] 03/24/23 10:21 DJO Document 03/24/23 09:55 [email or web address] [email or web address] 03/24/23 10:21 DJO Document 03/24/23 10:00 [email or web address] [email or web address] 03/24/23 10:21 DJO Document 03/24/23 10:15 [email or web address] [email or web address] 03/24/23 10:21 DJO 03/24/23 03/24/23 03/24/23 09:45 09:50 09:55 Home O2 Evaluation [Oxygen] -Test Phase Resting Resting Exercise -Oxygen Delivery Nasal Cannula Nasal Cannula Nasal Cannula -Oxygen Flow Rate (L/min) 2 3 3 [Pulse Oximetry] -Pulse Oximetry (90-100 %) 88 L 91 88 L [Pulse Rate] -Pulse Rate (60-100 beats/min) 96 95 109 H [Evaluation] -Activity Tolerance [Charges] -Treatment Charges O2 Evaluation - Inpatient 03/24/23 03/24/23 10:00 10:15 Home O2 Evaluation [Oxygen] -Test Phase Exercise Resting -Oxygen Delivery Nasal Cannula Nasal Cannula -Oxygen Flow Rate (L/min) 4 3 [Pulse Oximetry] -Pulse Oximetry (90-100 %) 91 90 [Pulse Rate] -Pulse Rate (60-100 beats/min) 100 94 [Evaluation] -Activity Tolerance Fair [Charges] -Treatment Charges
--- NOTE | 2023-03-24 10:23 | PCRCNOTE ---
HOME O2 EVAL COMPLETE, 3L AT REST AND 4L WITH ACTIVITY. TO BRING IN TANK FOR DISCHARGE. LASHANDA MENDOZA WILL BE IN TODAY AFTER 1300 TO TITRATE TRILOGY SETTINGS FOR COMFORT BEFORE PT DISCHARGES.
--- NOTE | 2023-03-24 15:13 | PM.DS ---
DS: Admitting Diagnosis Discharge Date 03/24/23 Admitting Diagnosis COPD and cellulitis DS: Discharge Diagnosis Discharge Diagnosis (1) COPD exacerbation: Code(s): J44.1 - Chronic obstructive pulmonary disease with (acute) exacerbation Status: Acute Assessment and Plan: As per Dr. Harrington steroid taper and antibiotic completing Levaquin tomorrow (2) Cellulitis of right leg: Code(s): L03.115 - Cellulitis of right lower limb Status: Acute Assessment and Plan: Complete antibiotics with azithromycin, Rocephin then Levaquin DS: Summary Hospital Course Reason for hospitalization: COPD exacerbation Hospital Course: Patient is a 67-year-old male active smoker with COPD on 4 L home oxygen therapy and trilogy machine, CAD, paroxysmal atrial fibrillation, essential hypertension he presents for right leg pain after a fall. In the ED he was found to have O2 saturation 88% on his usual 4 L home oxygen therapy. He has some elevated leukocytosis WBC at 13.4. He started on BiPAP and appeared to be BiPAP dependent at 1st. He was treated with azithromycin and Rocephin to cover both a pneumonia and his right lower extremity cellulitis. His hospitalized from 03/19/2023-03/24/2023. For his COPD Dr. Harrington has been consulted. Patient has gold grade 4 group ED COPD. He still a daily smoker 1 pack per day, with 100 pack-year tobacco use. He is treated with a steroid taper and recommendation for discharge is prednisone 40 mg for 3 days, 30 mg for 3 days, 20 mg for 3 days, then 10 mg for 3 days. He will complete 1 more day of p.o. Levaquin and afterwards start antibiotic prophylaxis with azithromycin 5 mg Monday. He will continue the Trelegy 1 puff daily, DuoNebs q.4 hours for dyspnea, albuterol 2 puffs q.4 hours for dyspnea. Home O2 evaluation has adjusted his oxygen to 3 L at rest and 4 L with ambulation. BiPAP settings were adjusted with [employer]ee, final settings AVAPS AE rate 18, TV 550, min EPAP 5, max EPAP 15, min PS 8, max PS 25, inspiratory time 1.2sec, 6L O2 bleed. Patient to follow-up with pulmonology in 3-4 weeks. Patient has had adequate antibiotics for his cellulitis. At time of discharge patient's labs are stable, vitals stable, patient is stable for discharge home. Patient also follow-up with PCP with his COPD med changes.He understands agrees with plan. Status at Discharge Cognitive/behavioral status at discharge: Stable Time Spent with Patient Time attestation: Total time spent providing and/or coordinating discharge services: 40 min Exam Narrative: - GENERAL: Pleasant chronically ill-appearing male in some respiratory distress - EYES: EOMI. - HENT: Moist mucous membranes. - LUNGS: coarse lung sounds, increased respiratory effort, patient states is baseline - CARDIOVASCULAR: Regular rate and rhythm. No murmur. No JVD. - ABDOMEN: Soft, non-tender and non-distended. No palpable masses. - EXTREMITIES: No edema. Peripheral pulses 2+. Non-tender. - NEUROLOGIC: No focal neurological deficits. CN II-XII grossly intact. - PSYCHIATRIC: Awake, Alert and oriented x 3. Appropriate mood and affect. - SKIN: No rashes or lesions. Warm. - LYMPH: No cervical lymphadenopathy. DS: Data Data Completed and Pending Completed studies during hospitalization: Echo showing EF 52% and Grade I diastolic dysfunction. Labs on day of discharge: Labs from last 24 hours 03/24/23 04:00 WBC 12.3 H RBC 3.43 L Hgb 9.9 L Hct 33.6 L MCV 98.0 MCH 28.9 MCHC 29.5 L RDW 16.3 H Plt Count 238 MPV 10.7 H Immature Gran % (Auto) 1.1 H Neut % (Auto) 67.5 Lymph % (Auto) 12.3 L Weber % (Auto) 18.4 H Eos % (Auto) 0.5 Baso % (Auto) 0.2 Lymph # (Auto) 1.51 Weber # (Auto) 2.3 H Eos # (Auto) 0.1 Baso # (Auto) 0.0 Abs Immat Gran (auto) 0.14 H Absolute Neuts (auto) 8.3 H Absolute Nucleated RBC 0.0 Nucleated RBC % 0.0 Platelet Estimate Adequate Hypochromasia 2+ Anisocytos
--- NOTE | 2023-03-24 15:35 | PCPTNOTE ---
Attempted to see patient for PT, however patient declined due to anticipated discharge.
[2023-03-24 23:01] LABS: Pneumococcal Antigen Urine Not Detected (Not Detected)
[2023-03-25 02:22] LABS: Legionella pneumophila Ag Ur Not Detected (Not Detected)
[2023-03-25 18:28] LABS: Mycoplasma IgM Antibody Titer 89 U/mL (<770)
== END 2023-03-24 16:52 | disposition home or self-care (01) | DRG 190 ==
LOC: ANHED 12:21 → ANHIMU 16:53
PROVIDERS: Internal Medicine Pulmonary Disease; Physician Assistant; Admitting Provider Student in an Organized Health Care Education/Training Program; Emergency Provider Physician Assistant; PCP Physician Assistant; Visit Provider Student in an Organized Health Care Education/Training Program
DX: J44.0 Chronic obstructive pulmonary disease with (acute) lower respiratory infection (principal); J18.9 Pneumonia, unspecified organism; J96.21 Acute and chronic respiratory failure with hypoxia; J96.22 Acute and chronic respiratory failure with hypercapnia; L03.115 Cellulitis of right lower limb; J44.1 Chronic obstructive pulmonary disease with (acute) exacerbation; F17.210 Nicotine dependence, cigarettes, uncomplicated; I25.10 Atherosclerotic heart disease of native coronary artery without angina pectoris; I48.0 Paroxysmal atrial fibrillation; F31.9 Bipolar disorder, unspecified; Z20.822 Contact with and (suspected) exposure to COVID-19; I70.0 Atherosclerosis of aorta; D64.9 Anemia, unspecified; I11.0 Hypertensive heart disease with heart failure; I50.9 Heart failure, unspecified; G47.33 Obstructive sleep apnea (adult) (pediatric); L40.50 Arthropathic psoriasis, unspecified; E78.5 Hyperlipidemia, unspecified; G58.8 Other specified mononeuropathies; Z96.642 Presence of left artificial hip joint; Z99.81 Dependence on supplemental oxygen; Z79.82 Long term (current) use of aspirin; Z95.5 Presence of coronary angioplasty implant and graft; Z90.49 Acquired absence of other specified parts of digestive tract; Z86.718 Personal history of other venous thrombosis and embolism
CPT/HCPCS: 36415; 36600; 71045; 71275; 73590; 73610; 80048; 80053; 82803; 82805; 83735; 83880; 84145; 84484; 85025; 85027; 85610; 85730; 86140; 86738; 87040; 87081; 87449; 87636; 87899; 93005; 93306; 93971; 94002; 94003; 94618; 94640; 94660; 94762; 96365; 96367; 96375; 97161; 99285; A9270; J0456; J0696; J1650; J2405; J2920; J2930; J7030; J7512; Q9967

== ENCOUNTER → 2023-08-15 15:26 | Outpatient (CLI) | payer BC, MEDICARE, SELFPAY ==
--- NOTE | ~2023-08-15 | XR_ITS ---
XR lumbar spine 2-3V DATE: 08/15/2023 16:22 INDICATION: Lumbosacral radiculopathy TECHNIQUE: AP, lateral, coned lateral lumbosacral views COMPARISON: February 24, 2022 lumbar spine FINDINGS: Diffuse osteopenia. Again noted is fusion at T11-12, unchanged since 02/24/2022. Multilevel degenerative disc disease of lumbar spine, particularly severe at L1-2 and L5-S1, moderate at L2-3 and L3-4 and moderately severe to L4-5. There is degenerative change at the apophyseal joints with associated minimal grade 1 anterolisthesis at L4-5. No interval fracture or bone destruction is detected. Included lower thoracic and lumbar pedicles are intact. The sacroiliac joints are unremarkable. Left bipolar hip prosthesis. Extensive calcification of the abdominal aorta and iliac arteries; no apparent abdominal aortic aneur ysm. IMPRESSION: No significant change since 02/24/2022 Reviewed, dictated and finalized at location B.
--- NOTE | ~2023-08-15 | XR_ITS ---
XR cervical spine 4-5V DATE: 08/15/2023 16:22 INDICATION: Cervical radiculopathy TECHNIQUE: AP, open-mouth, lateral, swimmer views COMPARISON: February 24, 2022 cervical spine FINDINGS: There is diffuse osteopenia. C1 and C2 are normally aligned and the odontoid process is intact. Stable minimal anterolisthesis at C2-3 since 02/24/2023. There is severe degenerative disc disease and mild retrolisthesis at C3-4. Severe degenerative disease at C4-5, C5-6 and C6-7 with virtual obliteration of disc space, degenerat kaden spurring. Degenerative change at the apophyseal joints throughout the cervical spine and at the mid and lower c ervical uncovertebral joints. No fracture or dislocation or locked facet or prevertebral soft tissue swelling is detected. IMPRESSION: Severe cervical spondylosis Reviewed, dictated and finalized at location B. IMPRESSION: Severe cervical spondylosis
--- NOTE | ~2023-08-15 | XR_ITS ---
XR thoracic spine 2V DATE: 08/15/2023 16:23 INDICATION: Thoracic radiculopathy TECHNIQUE: AP and lateral views COMPARISON: 09/01/2023 cervical spine 02/24/2023 thoracic spine FINDINGS: Diffuse osteopenia. There is mild levoscoliosis of the upper thoracic spine and dextroscoliosis of the lower thoracic spi ne. Chronic fusion at T11-12. Due to the osteopenia and scoliosis there is limited definition of the mid thoracic vertebrae. There is chronic loss of height and anterior wedging at T9. Consider CT or MR imaging for more definitive e valuation. Chronic elevation right diaphragm. Aortic arch calcification. IMPRESSION: Limited evaluation due to osteopenia and scoliosis; consider CT or MR imaging for more de finitive evaluation Osteopenia Scoliosis Chronic fusion at T11-12 Compression fracture deformity at T9 and probably one or more additional mid thoracic vertebrae Reviewed, dictated and finalized at location B. IMPRESSION: Limited evaluation due to osteopenia and scoliosis; consider CT or MR imaging for more definitive evaluation Osteopenia Scoliosis Chronic fusion at T11-12 Compression fracture deformity at T9 and probably one or more additional mid th oracic vertebrae
== END ==
PROVIDERS: PCP Family Medicine; Visit Provider Pain Medicine Interventional Pain Medicine
DX: M41.9 Scoliosis, unspecified (principal); M85.88 Other specified disorders of bone density and structure, other site; Z98.1 Arthrodesis status; M47.22 Other spondylosis with radiculopathy, cervical region
CPT/HCPCS: 72050; 72070; 72100

== ENCOUNTER 2023-10-23 18:37 | Inpatient (IN) | payer BC, MEDICARE, SELFPAY ==
[2023-10-23] VITALS (39 sets, daily range): BP systolic 112–155; BP diastolic 62–99; PULSE 74–105; RESP 12–31; TEMP 36.4; O2SAT 76–100
--- NOTE | ~2023-10-23 | XR_ITS ---
EXAMINATION: XR chest 1V portable DATE: 10/23/2023 20:09 INDICATION: Shortness of breath and difficulty breathing TECHNIQUE: frontal view of the chest was obtained. COMPARISON: Chest radiograph dated 03/20/[address] dated 03/29/2023 FINDINGS: Chronic elevation the right hemidiaphragm and right basilar atelectasis/scarring. No new airspace opa cities, pulmonary edema, pleural effusion or pneumothorax. Heart size within normal limits for AP teresa hnique with portion of the left heart border obscured by a pericardial fat pad as seen on prior CT. M ild upper thoracic levoscoliosis. IMPRESSION: 1. Chronic marked elevation the right hemidiaphragm with right basilar atelectasis/scarring. No evide nt acute cardiopulmonary disease. Reviewed, dictated and finalized at location A. ATTACHER IMPRESSION: 1. Chronic marked elevation the right hemidiaphragm with right basilar atelecta sis/scarring. No evident acute cardiopulmonary disease.
--- NOTE | ~2023-10-23 | US_ITS ---
EXAMINATION: US venous doppler [facility] DATE: 10/25/2023 11:33 INDICATION: Shortness of breath. TECHNIQUE: Grayscale ultrasound images without and with compression and Doppler ultrasound images of the bilateral lower extremity veins were obtained. COMPARISON: Ultrasound 12/01/2022 FINDINGS: The visualized portions of right common femoral vein, profunda (deep) femoral vein, femoral vein, pop liteal vein, peroneal veins, posterior tibial veins, and greater saphenous vein outflow are patent. The visualized portions of left common femoral vein, profunda femoral vein, femoral vein, popliteal v ein, peroneal veins, posterior tibial veins, and greater saphenous vein outflow are patent. IMPRESSION: 1. No deep venous thrombosis. Reviewed, dictated and finalized at location A. OMER SUPPORT ANALYST
--- NOTE | ~2023-10-23 | CT_ITS ---
EXAMINATION: CTA chest PE protocol DATE: 10/24/2023 11:03 INDICATION: Shortness of breath. TECHNIQUE: Computed tomography angiography (CTA) of the chest was performed with 100 mL Omnipaque-350 intravenous contrast timed to evaluate the pulmonary arteries. Coronal maximum intensity projection 3D-reconstructions were created by the technologist. Automated exposure control and iterative reconst ruction technique were employed. The dose-length product was 644.19 mGy-cm. COMPARISON: Chest CT 03/19/2023 FINDINGS: There is marked elevation of right hemidiaphragm. There is mild atelectasis bilaterally. No pleural effusion. The heart size is normal. There are coronary artery calcifications. No pericardial effusion. There is no pulmonary embolus. There is bilateral gynecomastia. There is severe thoracic s pondylosis. There are chronic burst fractures of T5-T9. IMPRESSION: 1. No pulmonary embolus. Sensitivity is decreased in the segmental arteries due to motion artifact. 2. Chronic marked elevation of right hemidiaphragm. Reviewed, dictated and finalized at location A. NG PLANT OPERATOR
--- NOTE | ~2023-10-23 | US_ITS ---
EXAMINATION: US venous doppler [facility] DATE: 10/25/2023 11:33 INDICATION: Shortness of breath. TECHNIQUE: Grayscale ultrasound images without and with compression and Doppler ultrasound images of the bilateral upper extremity veins were obtained. COMPARISON: None. FINDINGS: The visualized portions of the right internal jugular vein, subclavian vein, axillary vein, brachial veins, cephalic vein, radial vein, and ulnar vein are patent. There is thrombus in right basilic vein . The visualized portions of the left internal jugular vein, subclavian vein, axillary vein, brachial v eins, basilic vein, cephalic vein, radial vein, and ulnar vein are patent. IMPRESSION: 1. No deep venous thrombosis. 2. Superficial vein thrombosis involving right basilic vein. Reviewed, dictated and finalized at location A. CULTURAL AGENT
--- NOTE | 2023-10-23 19:26 | ECG_ITS ---
Measurements Intervals [place] Rate: 97 P: 49 MS: 169 QRS: -19 QRSD: 86 T: 44 QT: 321 QTc: 408 Interpretive Statements SINUS RHYTHM WITH OCCASIONAL VENTRICULAR PREMATURE COMPLEXES LOW QRS VOLTAGE IN PRECORDIAL LEADS [QRS DEFLECTION < 1.0 mV IN CHEST LEADS] INFERIOR MYOCARDIAL INFARCTION , OF INDETERMINATE AGE [40+ ms Q WAVE AND/OR ST/T ABNORMALITY IN II/aVF] POOR R-WAVE PROGRESSION ABNORMAL ECG COMPARED TO ECG 03/19/2023 12:10:15 NO SIGNIFICANT CHANGES Electronically Signed On 10-24-2023 16:54:55 AUDIO VISUAL FACILITIES ENGINEER by Gustavo Talley M.D.
[2023-10-23] MEDS: ALBUTEROL SULFATE NEB 2.5 MG/3 ML INH 10 MG INHALATION (19:36)
[2023-10-23 19:56] LABS: Alveolar/Arterial O2 Gradient 82.9 mmHg; Base Excess ABG 8.7 mEq/l (+/-2.0); Fractional Inspired Oxygen 40 %; Oxygen Content ABG 16.5 %vol (16.0-22.0); Oxygen Saturation ABG 98.4 % (95.0-100.0); Oxyhemoglobin 92.5 % THb (90.0-100.0); PO2 ABG 130.1 mmHg (80.0-100.0); PO2 FiO2 Ratio Arterial Blood 3.25 %; Total Hemoglobin 12.5 g/dL (12.0-18.0); pH ABG 7.376 (7.350-7.450)
--- NOTE | 2023-10-23 19:56 | ED.SOB ---
HPI - SOB/Dyspnea General Chief Complaint: Shortness of Breath/Dyspnea Stated Complaint: dyspnea Time Seen by Provider: 10/23/23 19:19 History of Present Illness HPI Narrative: patient has a history of COPD. Is normally on 4-6 L of oxygen at baseline. Presents to the emergency department today with worsening shortness of breath. He has had increase of his baseline shortness of breath over the past 2 weeks. Saw the cleater last week and was started on steroids and doxycycline. Was feeling better for the 1st few days but then became acutely worse. Denies fevers and chills. He is accompanied by his son who contributes to the history. Patient has visible increased work of breathing but is able to speak full sentences Related Data Home Medications Medication Instructions Recorded Confirmed aspirin 81 mg tablet,delayed 81 mg PO DAILY 10/17/19 09/21/23 release (Adult Aspirin Regimen) atorvastatin 20 mg tablet 20 mg PO DAILY 10/17/19 09/21/23 oxycodone-acetaminophen 10 mg-325 1 tablet PO TID PRN Pain (Scale 10/17/19 09/21/23 mg tablet (Percocet) Score 4-6) albuterol sulfate 90 mcg/actuation 2 puff inhalation TID PRN 01/28/21 09/21/23 aerosol inhaler Shortness Of Breath aripiprazole 2 mg tablet 2 mg PO DAILY 01/28/21 09/21/23 venlafaxine 150 mg 225 mg PO DAILY 01/28/21 09/21/23 capsule,extended release 24 hr acetaminophen 300 mg-codeine 60 mg 1 tablet PO DAILY PRN Pain 05/09/22 09/21/23 tablet carvedilol 25 mg tablet (Coreg) 25 mg PO BID 05/09/22 09/21/23 ipratropium 0.5 mg-albuterol 3 mg 3 ml inhalation TID PRN Shortness 05/09/22 09/21/23 (2.5 mg base)/3 mL nebulization Of Breath soln lisinopril 10 mg tablet 10 mg PO DAILY 11/30/22 09/21/23 lidocaine 5 % topical patch 1 patch topical DAILY 12/27/22 09/21/23 methotrexate sodium 2.5 mg tablet 15 mg PO WEEKLY 06/20/23 09/21/23 Allergies Allergy/AdvReac Type Severity Reaction Status Date / Time procaine Allergy Unknown HEART Verified 09/21/23 15:57 PROBLEMS vancomycin Allergy Unknown Rash Verified 09/21/23 15:57 Review of Systems Review of Systems: negative except for what is documented in the [facility] Past Medical History Medical History (Updated 10/23/23 @ 20:00 by Veena Masters MD) Atherosclerosis of aorta Bipolar 1 disorder Cardiac aneurysm Patient states it is nonoperable. Chronic anemia Chronic back pain Chronic obstructive pulmonary disease Chronic respiratory failure with hypoxia and hypercapnia Congestive heart failure Coronary artery disease Depression Hyperlipidemia Hypertension Obstructive sleep apnea Paroxysmal atrial fibrillation Polyosteoarthritis, unspecified Psoriatic arthritis Tobacco abuse Surgical History Surgical History History of ankle surgery (1989) History of appendectomy (1986) History of coronary artery stent placement 1 stent in 2004. History of hammertoe correction (11/2017) History of left hip replacement (10/04/19) History of nasal septoplasty (1969) History of vasectomy (2004) Family History Family History Father COPD (chronic obstructive pulmonary disease) Mother Cancer Social History Social History (Updated 09/21/23 @ 16:01 by Patsy Gill MA) Social History: Surrogate medical decision maker: Isatu Plascencia, spouse. Code status: Full code. Smoking packs per day: 1 Smoking cigarettes per day: 20.0 Years smoked: 45 Smoking pack-years: 45.00 Smoking status: Current every day smoker Tobacco type: cigarettes Second hand tobacco smoke exposure: Yes Alcohol intake: current Drinks per week: 0 Alcohol use details: 1 or 2 every 6 months Substance use: never Substance use type: does not use Lack of Transportation: No Lack of Food: Never True Current Housing: I Have Housing Concerned About Future Housing: No Difficulty Paying Ga
[2023-10-23 19:57] LABS: PCO2 ABG 62.8 mmHg (35.0-45.0)
[2023-10-23 19:58] LABS: Device NASAL CANNULA; Modified Allen's Test Pass; Site Drawn RIGHT RADIAL
[2023-10-23] MEDS: SODIUM CHLORIDE 0.9% IV 1,000 ML 999 ML IV CONT (20:25)
[2023-10-23] MEDS: MAGNESIUM SULF 2 GM/WATER 50ML 2 GM/50 ML BAG IVPB (20:25)
[2023-10-23] MEDS: methylPREDNISolone SOD SUCC 125 MG VIAL IV PUSH (20:25)
[2023-10-23 20:27] LABS: Basophils Percent Auto 0.1 % (0.2-1.2); Eosinophils Absolute Auto 0.1 K/mm3 (0-0.3); Eosinophils Percent Auto 0.6 % (0-4.4); Hematocrit 37.4 % (42.0-52.0); Immature Granulocyte Absolute 0.22 K/mm3 (0.00-0.031); Immature Granulocyte Percent A 1.4 % (0-0.5); Lymphocytes Absolute Auto 1.73 K/mm3 (0.9-3.2); Lymphocytes Percent Auto 11.2 % (18.3-44.2); Mean Corpuscular HGB Conc 32.1 g/dl (32-36); Mean Corpuscular Hemoglobin 32.4 pg (26-34); Mean Corpuscular Volume 101.1 fl (80-100); Mean Platelet Volume 9.9 fl (7.4-10.4); Monocytes Absolute Auto 1.7 K/mm3 (0.1-0.6); Monocytes Percent Auto 11.2 % (2.6-8.5); Neutrophils Absolute Auto 11.7 K/mm3 (1.3-6.7); Neutrophils Percent Auto 75.5 % (45.5-73.1); Platelet Count Result 297 k/mm3 (150-375); White Blood Count 15.5 K/mm3 (4.5-10.0)
[2023-10-23 20:37] LABS: Lactic Acid Reflex 1.3 mmol/L (0.7-2.0)
[2023-10-23 20:42] LABS: Alanine Aminotransferase 50 U/L (6-50); Albumin Level 3.9 g/dL (3.5-5.1); Alkaline Phosphatase 118 U/L (38-126); Aspartate Amino Transferase 45 U/L (17-59); Bilirubin,Total 0.5 mg/dL (0.2-1.3); Blood Urea Nitrogen 29 mg/dL (9-20); Calcium 9.1 mg/dL (8.4-10.2); Carbon Dioxide > 40 mmol/L (22-30); Chloride 87 mmol/L (98-107); D Dimer 1.35 ug/mL (<0.48); Estimated CRCL calculation 61 ml/min; Estimated Glomerular Filt Rate > 60; Glucose 151 mg/dL (65-110); Potassium 4.2 mmol/L (3.4-5.0); Sodium 130 mmol/L (137-145)
[2023-10-23 20:49] LABS: NT Pro B Type Natriuretic Pept 91 pg/mL (19.9-100); Troponin I < 0.012 ng/mL (0.000-0.034)
[2023-10-23 21:04] LABS: Influenza A QL RT-PCR Negative (Negative); Influenza B QL RT-PCR Negative (Negative); RSV RNA, RT-PCR Negative (Negative); SARS-CoV-2 RNA PCR Negative (Negative)
[2023-10-23] MEDS: ALBUTEROL SULFATE NEB 2.5 MG/3 ML INH INHALATION (21:40)
--- NOTE | 2023-10-23 22:27 | PM.IMHP ---
H&P: HPI History of Present Illness Date/Time: 10/23/23 22:27 Chief Complaint: Shortness of breath Narrative: This is a 67-year-old male with past medical history significant for COPD/emphysema, congestive heart failure, chronic back pain, coronary artery disease, stroke to have sleep apnea, paroxysmal atrial fibrillation, psoriatic arthritis, tobacco dependence. Patient presents to the emergency room today due to worsening shortness of breast he is usually on 4-6 L of ox supplemental oxygen by nasal cannula at home was seen in the urgent care sent home with doxycycline and Solu pack had initial improvement but then sudden worsening. In emergency room patient was found to be hypoxic ABG showed a pCO2 in the 60s patient was placed on BiPAP. At the time of my visit I was unable to obtain any history as patient was on BiPAP. EXAMINATION: XR chest 1V portable DATE: 10/23/2023 20:09 INDICATION: Shortness of breath and difficulty breathing TECHNIQUE: frontal view of the chest was obtained. COMPARISON: Chest radiograph dated 03/20/[address] dated 03/29/2023 FINDINGS: Chronic elevation the right hemidiaphragm and right basilar atelectasis/scarring. No new airspace opacities, pulmonary edema, pleural effusion or pneumothorax. Heart size within normal limits for AP technique with portion of the left heart border obscured by a pericardial fat pad as seen on prior CT. Mild upper thoracic levoscoliosis. IMPRESSION: 1. Chronic marked elevation the right hemidiaphragm with right basilar atelectasis/scarring. No evident acute cardiopulmonary disease. Review of Systems Review of Systems: ROS unobtainable: Yes unobtainable due to medical condition (Respiratory failure on BiPAP) [facility] Past Medical History Medical History (Updated 10/24/23 @ 01:04 by Tiesha Mohan MD) Atherosclerosis of aorta Bipolar 1 disorder Cardiac aneurysm Patient states it is nonoperable. Chronic anemia Chronic back pain Chronic obstructive pulmonary disease Chronic respiratory failure with hypoxia and hypercapnia Congestive heart failure Coronary artery disease Depression Hyperlipidemia Hypertension Obstructive sleep apnea Paroxysmal atrial fibrillation Polyosteoarthritis, unspecified Psoriatic arthritis Tobacco abuse Surgical History Surgical History History of ankle surgery (1989) History of appendectomy (1986) History of coronary artery stent placement 1 stent in 2004. History of hammertoe correction (11/2017) History of left hip replacement (10/04/19) History of nasal septoplasty (1969) History of vasectomy (2004) Family History Family History Father COPD (chronic obstructive pulmonary disease) Mother Cancer Social History Social History (Updated 09/21/23 @ 16:01 by Patsy Gill MA) Social History: Surrogate medical decision maker: Isatu Hicksmarcooscar, spouse. Code status: Full code. Smoking packs per day: 1 Smoking cigarettes per day: 20.0 Years smoked: 45 Smoking pack-years: 45.00 Smoking status: Current every day smoker Tobacco type: cigarettes Second hand tobacco smoke exposure: Yes Alcohol intake: current Drinks per week: 0 Alcohol use details: 1 or 2 every 6 months Substance use: never Substance use type: does not use Lack of Transportation: No Lack of Food: Never True Current Housing: I Have Housing Concerned About Future Housing: No Difficulty Paying Gas/Electric Bills: No Difficulty Paying for Meds: No Currently Unemployed: No Education: High School Diploma/GED Difficulty w/ Childcare or Family Care: No Living arrangements: with family Additional living arrangements comments: Lives with spouse in [place]. 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 Gender identity (if verbalized by the patient): Mal
[2023-10-24] VITALS (61 sets, daily range): BP systolic 105–139; BP diastolic 56–97; PULSE 68–128; RESP 14–24; TEMP 36.2–36.6; O2SAT 96–100; BMI 28.9
--- NOTE | 2023-10-24 01:11 | PC.NURSE ---
Patient back in ED room, plans to change patient to IMU bed due to continuous BiPap through night.
--- NOTE | 2023-10-24 03:10 | PC.NURSE ---
Recliner switched out to one with a working foot rest. Patient urinated and had a few sips of a Starry. New blanket given to patient, and plugged phone in to charge. Call light next to patient clipped to the sheet on the recliner. Patient denies wanting a pillow at this time.
--- NOTE | 2023-10-24 10:22 | PC.NURSE ---
Dr Harrington at bedside to evaluate
[2023-10-24] MEDS: IPRATROPIUM BR 0.02% INH SOLN 0.5 MG/2.5 ML VIAL INHALATION ×3 (11:14→20:01)
[2023-10-24] MEDS: ALBUTEROL SULFATE NEB 2.5 MG/3 ML INH INHALATION ×3 (11:14→20:02)
[2023-10-24] MEDS: levoFLOXacin 750 MG/D5W 150 ML 750 MG/150 ML BAG 100 MG IVPB (11:41)
--- NOTE | 2023-10-24 11:47 | PM.CNPUL ---
Assessment and Plan Assessment and plan (1) Acute exacerbation of chronic obstructive pulmonary disease: Code(s): J44.1 - Chronic obstructive pulmonary disease with (acute) exacerbation Status: Acute Assessment and Plan: GOLD grade 4 group E COPD Patient with 100 pack year tobacco use, currently smoking 1 pack per day,? PFTs 02/12/2022 with an FEV1 of 0.75 L, 23% predicted, moderate severe restriction with a TLC of 58% and DLCO 29%. ? Patient with chronic hypoxemic respiratory failure he tells me he wears 6 L 05/06.? Patient has chronic hypercarbic respiratory failure previously on AVAPS-AE and now on BiPAP 28/06 with a spontaneous rate.? No bullous emphysema on his CT scan. ? patient has a paralyzed right hemidiaphragm.? Patient has psoriatic arthritis and is on methotrexate for 10 years and has been off of prednisone for the last month or so. ? Per loutpatient office note on 02/20/22 the patient was to start azithromycin 3 times a week Currently the patient has been treated for an ongoing COPD exacerbation with Medrol and a Z-Berny without improvement followed by treatment with Kenalog and prednisone with doxycycline. 10/23/23: Patient presented to the emergency department with shortness of breath, dyspnea on exertion with no improvement with current outpatient therapy. He had increased work of breathing, retractions and wheezes bilaterally. His white blood cell count was 15.5 with eosinophils 0.6%, creatinine was 1.00, D-dimer was 1.35, BNP was 91, troponin was negative, influenza, RSV and COVID RT PCR studies negative. Patient had a blood gas on 5 L nasal cannula with a pH of 7.38/63/130. He was placed on BiPAP for work of breathing and treated with Solu-Medrol, bronchodilators for COPD exacerbation. 10/24/23: When I saw the patient he was sitting in a chair stating he was doing about the same. He is on BiPAP and stated that the settings were uncomfortable. I changed him to a noninvasive ventilator mode with AVAPS rate of 18, tidal volume 550, EPAP 5, minimal inspiratory pressure 6, maximal inspiratory pressure 25, inspiratory time 1.2, rise of 3 and 40%. His saturations were 90%. He had diffuse wheezing bilaterally. Plan: I will check a CT angiogram of the chest to assess for pulmonary embolism. If this is negative I will order upper and lower extremity Dopplers. I will place the patient on Solu-Medrol 40 mg IV q.6 hours, albuterol and ipratropium nebulizers q.4 hours[address] I will empirically place him on Levaquin 750 mg p.o. Q 24 hours for tracheobronchitis. If there is evidence of pneumonia on the CT angiogram I will add ceftriaxone. Will continue noninvasive ventilation with the AVAPS mode and settings as above. Will follow with you. (2) Chronic respiratory failure with hypoxia and hypercapnia: Code(s): J96.11 - Chronic respiratory failure with hypoxia; J96.12 - Chronic respiratory failure with hypercapnia Status: Acute Assessment and Plan: Patient with a history of chronic hypoxemic and hypercarbic respiratory failure from his COPD. In March was discharged on 3 L at rest and 4 with ambulation and 6 L bleed in on his noninvasive ventilation at night. But he says he has worsened over the last 7 months now requiring 6 L 24/7. Currently is on 40% on the noninvasive ventilator and his saturations are 100% and we will wean for goal of saturations 90-94%. Regarding his chronic hypercarbic respiratory failure this is very severe and during a previous admission his blood gases on noninvasive ventilation with a set rate of 22 and a tidal volume of 550 were suboptimal at the end of the night with an ABG prior to the removal of the mask with a pH of 7.39/87/69. He could not tolerate this rate and tidal volume ?and at the bedside,? Bill Vee and I adjusted the home noninvasive ventilator with the AVAPS-AE mode? for comfort.? Final settings were AVAPS AE with rate of 18, tidal volume 550, minimum EPAP 5, maximum E
[2023-10-24] MEDS: methylPREDNISolone SOD SUCC 40 MG VIAL IV PUSH ×3 (12:36→22:52)
--- NOTE | 2023-10-24 13:20 | PM.IMHP ---
H&P: HPI History of Present Illness Date/Time: 10/24/23 13:20 Chief Complaint: SOB Narrative: 67M w/ PMH bipolar, anemia, HLD, HTN, CAD, p a fib, severe end stage COPD w/ chronic respiratory failure on 6L home o2 w/ trilogy presents with SOB. Follows by pulm at [facility]. See Dr. Sullivan note in detail. He was seen by Pul Dr. Sears on 10/16 and treated with Zpak and medrol dose sadaf along with doxycycline PO. On 10/23 he presented to [place] [facility] for unremitting SOB. Pt placed on BIPAP. solumedrol and bronchodilators. CTA chest neg for PE or pneumonia. Admitted on 10/23/23 After approx 24 hours of treatment, pt reports he feels slightly improved. He denies chest pain. 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 Chronic anemia Chronic back pain Chronic obstructive pulmonary disease Chronic respiratory failure with hypoxia and hypercapnia Congestive heart failure Coronary artery disease Depression Hyperlipidemia Hypertension Obstructive sleep apnea Paroxysmal atrial fibrillation Polyosteoarthritis, unspecified Psoriatic arthritis Tobacco abuse Surgical History Surgical History History of ankle surgery (1989) History of appendectomy (1986) History of coronary artery stent placement 1 stent in 2004. History of hammertoe correction (11/2017) History of left hip replacement (10/04/19) History of nasal septoplasty (1969) History of vasectomy (2004) Family History Family History Father COPD (chronic obstructive pulmonary disease) Mother Cancer Social History Social History (Updated 09/21/23 @ 16:01 by Patsy Gill MA) Social History: Surrogate medical decision maker: Isatu Hicksdora, spouse. Code status: Full code. Smoking packs per day: 1 Smoking cigarettes per day: 20.0 Years smoked: 45 Smoking pack-years: 45.00 Smoking status: Current every day smoker Tobacco type: cigarettes Second hand tobacco smoke exposure: Yes Alcohol intake: former Alcohol use details: 1 or 2 every 6 months Substance use: never Substance use type: does not use Lack of Transportation: No Lack of Food: Never True Current Housing: I Have Housing Concerned About Future Housing: No Difficulty Paying Gas/Electric Bills: No Difficulty Paying for Meds: No Currently Unemployed: No Education: High School Diploma/GED Difficulty w/ Childcare or Family Care: No Living arrangements: with family Additional living arrangements comments: Lives with spouse in [place]. 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 Gender identity (if verbalized by the patient): Male Sexual Orientation (if Verbalized by the Patient): Straight or Heterosexual Spiritual care concerns: No Meds Home Medications and Allergies Home Medications Medication Instructions Recorded Confirmed Type aspirin 81 mg tablet,delayed 81 mg PO DAILY 10/17/19 10/24/23 History release (Adult Aspirin Regimen) atorvastatin 20 mg tablet 20 mg PO DAILY 10/17/19 10/24/23 History oxycodone-acetaminophen 10 mg-325 1 tablet PO TID PRN Pain (Scale 10/17/19 10/24/23 History mg tablet (Percocet) Score 4-6) albuterol sulfate 90 mcg/actuation 2 puff inhalation TID PRN 01/28/21 10/24/23 History aerosol inhaler Shortness Of Breath aripiprazole 2 mg tablet 2 mg PO DAILY 01/28/21 10/24/23 History venlafaxine 150 mg 225 mg PO DAILY 01/28/21 10/24/23 History capsule,extended release 24 hr acetaminophen 300 mg-codeine 60 mg 1 tablet PO DAILY PRN Pain 05/09/22 10/24/23 History tablet carvedilol 25 mg ta
[2023-10-24] MEDS: VENLAFAXINE HCL XR 75 MG CAP.ER.24H 225 MG PO (14:02)
[2023-10-24] MEDS: ARIPiprazole 2 MG TABLET PO (14:02)
[2023-10-24] MEDS: ATORVASTATIN 20 MG TABLET PO (14:02)
[2023-10-24] MEDS: SPIRONOLACTONE 25 MG TABLET PO (14:02)
[2023-10-24] MEDS: FUROSEMIDE 40 MG TABLET PO (14:03)
[2023-10-24] MEDS: ASPIRIN 81 MG ENTERIC TABLET PO (14:03)
[2023-10-24] MEDS: lisinopriL 10 MG TABLET PO (14:04)
[2023-10-24] MEDS: ENOXAPARIN 40 MG/0.4 ML SYRINGE SUB-Q (14:04)
[2023-10-24] MEDS: carvediloL 25 MG TABLET PO (18:18)
[2023-10-24] MEDS: CYCLOBENZAPRINE HCL 10 MG TABLET PO (18:19)
[2023-10-24] MEDS: GABAPENTIN 300 MG CAPSULE PO (21:53)
--- NOTE | 2023-10-24 22:34 | ADMGEN ---
This patient, Israel Plascencia Sr., was admitted to IMU Room 206-01. Patient/family oriented to hospital policies and general routines including ID bracelet, bed and alarms, visiting hours, pain management, procedures, bathroom and other care routines, personal items, smoking policy, room service/diet, and visiting hours. Information on how to activate the Rapid Response Team has been discussed. Patient/Family are encouraged to report perceived risks to care and to ask questions if they do not understand what they are told or what they should do.
[2023-10-24] MEDS: oxyCODONE/ACETAMINOPHEN (*CRX) 10-325 MG TABLET 1 TAB PO (22:39)
[2023-10-25] VITALS (32 sets, daily range): BP systolic 103–120; BP diastolic 59–73; PULSE 90–113; RESP 18–27; TEMP 36–37.4; O2SAT 95–99
[2023-10-25] MEDS: IPRATROPIUM BR 0.02% INH SOLN 0.5 MG/2.5 ML VIAL INHALATION ×5 (00:14→16:13)
[2023-10-25] MEDS: ALBUTEROL SULFATE NEB 2.5 MG/3 ML INH INHALATION ×5 (00:15→16:13)
[2023-10-25 05:22] LABS: Basophils Percent Auto 0.1 % (0.2-1.2); Hematocrit 32.9 % (42.0-52.0); Hemoglobin 10.5 g/dL (14.0-18.0); Immature Granulocyte Absolute 0.23 K/mm3 (0.00-0.031); Immature Granulocyte Percent A 1.3 % (0-0.5); Lymphocytes Absolute Auto 0.91 K/mm3 (0.9-3.2); Lymphocytes Percent Auto 5.2 % (18.3-44.2); Mean Corpuscular HGB Conc 31.9 g/dl (32-36); Mean Corpuscular Hemoglobin 32.2 pg (26-34); Mean Corpuscular Volume 100.9 fl (80-100); Monocytes Absolute Auto 1.3 K/mm3 (0.1-0.6); Monocytes Percent Auto 7.7 % (2.6-8.5); Neutrophils Absolute Auto 14.9 K/mm3 (1.3-6.7); Neutrophils Percent Auto 85.7 % (45.5-73.1); Platelet Count Result 254 k/mm3 (150-375); Red Blood Count 3.26 M/mm3 (4.6-6.20); Red Cell Distribution Width 15.1 % (11.5-14.5); White Blood Count 17.4 K/mm3 (4.5-10.0)
[2023-10-25 05:40] LABS: Anion Gap 3 mmol/L (8-16); Blood Urea Nitrogen 46 mg/dL (9-20); Calcium 8.7 mg/dL (8.4-10.2); Carbon Dioxide 38 mmol/L (22-30); Chloride 92 mmol/L (98-107); Estimated CRCL calculation 45 ml/min; Estimated Glomerular Filt Rate 51; Glucose 104 mg/dL (65-110); Magnesium 2.4 mg/dL (1.6-2.3); Sodium 133 mmol/L (137-145)
[2023-10-25] MEDS: methylPREDNISolone SOD SUCC 40 MG VIAL IV PUSH (05:48)
[2023-10-25 06:12] LABS: Procalcitonin 0.1 ng/mL
[2023-10-25] MEDS: VENLAFAXINE HCL XR 75 MG CAP.ER.24H 225 MG PO (08:47)
[2023-10-25] MEDS: ATORVASTATIN 20 MG TABLET PO (08:47)
[2023-10-25] MEDS: FUROSEMIDE 40 MG TABLET PO (08:47)
[2023-10-25] MEDS: ARIPiprazole 2 MG TABLET PO (08:47)
[2023-10-25] MEDS: lisinopriL 10 MG TABLET PO (08:47)
[2023-10-25] MEDS: carvediloL 25 MG TABLET PO ×2 (08:48→17:23)
[2023-10-25] MEDS: SPIRONOLACTONE 25 MG TABLET PO (08:48)
[2023-10-25] MEDS: ENOXAPARIN 40 MG/0.4 ML SYRINGE SUB-Q (08:48)
[2023-10-25] MEDS: levoFLOXacin 750 MG/D5W 150 ML 750 MG/150 ML BAG 100 MG IVPB (08:48)
[2023-10-25] MEDS: CYCLOBENZAPRINE HCL 10 MG TABLET PO ×2 (08:48→17:23)
[2023-10-25] MEDS: ASPIRIN 81 MG ENTERIC TABLET PO (08:48)
[2023-10-25] MEDS: oxyCODONE/ACETAMINOPHEN (*CRX) 10-325 MG TABLET 1 TAB PO ×2 (08:59→17:27)
--- NOTE | 2023-10-25 09:02 | PM.PNPUL ---
Progress Note: A&P Assessment and Plan (1) Acute exacerbation of chronic obstructive pulmonary disease: Code(s): J44.1 - Chronic obstructive pulmonary disease with (acute) exacerbation Status: Acute Assessment and Plan: GOLD grade 4 group E COPD Patient with 100 pack year tobacco use, currently smoking 1 pack per day,? PFTs 02/12/2022 with an FEV1 of 0.75 L, 23% predicted, moderate severe restriction with a TLC of 58% and DLCO 29%. ? Patient with chronic hypoxemic respiratory failure he tells me he wears 6 L 05/06.? Patient has chronic hypercarbic respiratory failure previously on AVAPS-AE and now on BiPAP 28/06 with a spontaneous rate.? No bullous emphysema on his CT scan. ? patient has a paralyzed right hemidiaphragm.? Patient has psoriatic arthritis and is on methotrexate for 10 years and has been off of prednisone for the last month or so. ? Per loutpatient office note on 02/20/22 the patient was to start azithromycin 3 times a week Currently the patient has been treated for an ongoing COPD exacerbation with Medrol and a Z-Berny without improvement followed by treatment with Kenalog and prednisone with doxycycline. 10/23/23: Patient presented to the emergency department with shortness of breath, dyspnea on exertion with no improvement with current outpatient therapy. He had increased work of breathing, retractions and wheezes bilaterally. His white blood cell count was 15.5 with eosinophils 0.6%, creatinine was 1.00, D-dimer was 1.35, BNP was 91, troponin was negative, influenza, RSV and COVID RT PCR studies negative. Patient had a blood gas on 5 L nasal cannula with a pH of 7.38/63/130. He was placed on BiPAP for work of breathing and treated with Solu-Medrol, bronchodilators for COPD exacerbation. 10/24/23: When I saw the patient he was sitting in a chair stating he was doing about the same. He is on BiPAP and stated that the settings were uncomfortable. I changed him to a noninvasive ventilator mode with AVAPS rate of 18, tidal volume 550, EPAP 5, minimal inspiratory pressure 6, maximal inspiratory pressure 25, inspiratory time 1.2, rise of 3 and 40%. His saturations were 90%. He had diffuse wheezing bilaterally. Plan: I will check a CT angiogram of the chest to assess for pulmonary embolism. If this is negative I will order upper and lower extremity Dopplers. I will place the patient on Solu-Medrol 40 mg IV q.6 hours, albuterol and ipratropium nebulizers q.4 hours[address] I will empirically place him on Levaquin 750 mg p.o. Q 24 hours for tracheobronchitis. If there is evidence of pneumonia on the CT angiogram I will add ceftriaxone. Will continue noninvasive ventilation with the AVAPS mode and settings as above. Later in the day the patient had a CT angiogram which was negative for PE, negative for consolidations or effusions. Procalcitonin was 0.1. 10/25: Patient remained on noninvasive ventilator with the AVAPS mode continuously since yesterday and when I saw him this morning he was on the noninvasive ventilator. He tells me he is breathing a little bit better. He had bilateral expiratory wheezes. He was on 35% with saturations 99%. White blood cell count is 17.4, creatinine is 1.4. Patient is afebrile. Weight is 86.4 and he is cumulative positive 700 mL since admission. Plan: Patient has wheezing are improved. I will decrease his Solu-Medrol to 20 mg IV q.6 hours today. I will continue albuterol and ipratropium nebulizers q.4 hours. I will continue Levaquin for tracheobronchitis. No evidence of pneumonia on his CT scan. The patient feels he will be able to come off the noninvasive ventilator today and I have informed the nurse that he can be p.r.n. with the noninvasive ventilator. Will follow with you. (2) Chronic respiratory failure with hypoxia and hypercapnia: Code(s): J96.11 - Chronic respiratory failure with hypoxia; J96.12 - Chronic respiratory failure with hypercapnia Status: Acute Assess
--- NOTE | 2023-10-25 12:06 | PM.IMPN ---
Progress Note: A&P Assessment and Plan (1) Acute exacerbation of chronic obstructive pulmonary disease: Code(s): J44.1 - Chronic obstructive pulmonary disease with (acute) exacerbation Status: Acute (2) Chronic respiratory failure with hypoxia and hypercapnia: Code(s): J96.11 - Chronic respiratory failure with hypoxia; J96.12 - Chronic respiratory failure with hypercapnia Status: Acute Plan pt still wheezing, but currently being taken off NIPPV to nasal cannula. he has a pre renal ratio and a slight bump in sCR. holding lasix and spironolactone. giving very gently bolus of 250cc x1. will check procal in morning as well to help guide abx considering leukcotyosis. cont levaquin. possibly home tomorrow pending full code Subjective Date/time seen: 10/25/23 12:06 Interval history: naoe. patient feels better. he wants to go on nasal cannula, his feet do not hurt anymore Review of Systems Review of Systems: All systems reviewed & are unremarkable except as noted in HPI and below (subjective) Exam Const: General: comfortable and no acute distress Eyes: Pupils: Equal, round and reactive pupils present Resp: Effort & Inspection: normal respiratory effort Auscultation: wheezes and diminished lung sounds Cardio: Rate: regular rate Rhythm: regular rhythm Heart sounds: no gallops, no murmurs and no rubs Extrem: General: no edema (bluish discoloration is resolved) Objective Data Vital Signs Vital Signs: Vital Signs - 24 hr 10/24/23 12:36 10/24/23 13:20 10/24/23 13:52 Temperature Pulse Rate 111 H 114 H 109 H Respiratory Rate 19 23 H 19 Blood Pressure 125/80 125/80 Pulse Oximetry 100 100 100 Oxygen Delivery BiPAP Oxygen Flow Rate Fraction of Inspired Oxygen 10/24/23 14:08 10/24/23 15:31 10/24/23 16:21 Temperature Pulse Rate 117 H 110 H 109 H Respiratory Rate 22 H 19 18 Blood Pressure 119/77 119/77 Pulse Oximetry 100 100 Oxygen Delivery Oxygen Flow Rate Fraction of Inspired Oxygen 10/24/23 16:22 10/24/23 17:25 10/24/23 18:18 Temperature Pulse Rate 110 H 118 H 119 H Respiratory Rate 18 23 H Blood Pressure 131/91 H Pulse Oximetry 97 100 Oxygen Delivery BiPAP Oxygen Flow Rate Fraction of Inspired Oxygen 10/24/23 18:22 10/24/23 20:02 10/24/23 20:02 Temperature Pulse Rate 128 H 99 100 Respiratory Rate 22 H 20 19 Blood Pressure 107/76 Pulse Oximetry 98 100 Oxygen Delivery BiPAP Oxygen Flow Rate Fraction of Inspired Oxygen 10/24/23 21:39 10/24/23 22:43 10/24/23 22:38 Temperature 97.2 F L Pulse Rate 96 68 105 H Respiratory Rate 18 22 H Blood Pressure 113/66 105/56 L Pulse Oximetry 98 96 Oxygen Delivery Oxygen Flow Rate Fraction of Inspired Oxygen 10/24/23 23:10 10/25/23 00:16 10/25/23 00:00 Temperature Pulse Rate 109 H 109 H Respiratory Rate 20 Blood Pressure Pulse Oximetry 96 99 Oxygen Delivery Nasal Cannula BiPAP Oxygen Flow Rate 6 Fraction of Inspired Oxygen 10/25/23 00:00 10/25/23 02:00 10/25/23 00:05 Temperature Pulse Rate 105 H 92 Respiratory Rate 20 Blood Pressure Pulse Oximetry 95 Oxygen Delivery BiPAP Oxygen Flow Rate Fraction of Inspired Oxygen 35 10/25/23 00:20 10/25/23 04:15 10/25/23 04:00 Temperature 97.2 F L Pulse Rate 94 102 H Respiratory Rate 20 20 Blood Pressure 110/63 Pulse Oximetry 99 99 Oxygen Delivery BiPAP Oxygen Flow Rate Fraction of Inspired Oxygen 35 10/25/23 04:27 10/25/23 04:20 10/25/23 04:29 Temperature Pulse Rate 98 90 95 Respiratory Rate 20 20 20 Blood Pressure Pulse Oximetry 99 Oxygen Delivery BiPAP Oxygen Flow Rate Fraction of Inspired Oxygen 10/25/23 00:30 10/25/23 04:00 10/25/23 06:00 Temperature Pulse Rate 98 103 H 96 Respiratory Rate 18 Blood Pressure Pulse Oximetry 98 Oxygen Delivery BiPAP Oxygen Flow Rate Fraction of Inspired Ox
[2023-10-25] MEDS: SODIUM CHLORIDE 0.9% IV 250 ML IV CONT (12:41)
[2023-10-25] MEDS: methylPREDNISolone SOD SUCC 40 MG VIAL 20 MG IV PUSH ×2 (12:41→17:23)
[2023-10-25] MEDS: GABAPENTIN 300 MG CAPSULE PO (20:02)
[2023-10-25] MEDS: diazePAM (*CRX) 5 MG TABLET PO (20:04)
[2023-10-26] VITALS (27 sets, daily range): BP systolic 95–134; BP diastolic 56–82; PULSE 80–114; RESP 16–21; TEMP 36.4–37.1; O2SAT 91–100
[2023-10-26] MEDS: ALBUTEROL SULFATE NEB 2.5 MG/3 ML INH INHALATION ×6 (00:50→20:23)
[2023-10-26] MEDS: IPRATROPIUM BR 0.02% INH SOLN 0.5 MG/2.5 ML VIAL INHALATION ×6 (00:50→20:23)
[2023-10-26] MEDS: methylPREDNISolone SOD SUCC 40 MG VIAL 20 MG IV PUSH ×4 (01:13→17:53)
[2023-10-26 05:26] LABS: Basophils Percent Auto 0.1 % (0.2-1.2); Hematocrit 31.7 % (42.0-52.0); Hemoglobin 9.8 g/dL (14.0-18.0); Immature Granulocyte Absolute 0.28 K/mm3 (0.00-0.031); Immature Granulocyte Percent A 1.4 % (0-0.5); Lymphocytes Absolute Auto 0.75 K/mm3 (0.9-3.2); Lymphocytes Percent Auto 3.8 % (18.3-44.2); Mean Corpuscular HGB Conc 30.9 g/dl (32-36); Mean Corpuscular Hemoglobin 31.7 pg (26-34); Mean Corpuscular Volume 102.6 fl (80-100); Mean Platelet Volume 10.3 fl (7.4-10.4); Monocytes Absolute Auto 1.4 K/mm3 (0.1-0.6); Monocytes Percent Auto 7.1 % (2.6-8.5); Neutrophils Absolute Auto 17.2 K/mm3 (1.3-6.7); Neutrophils Percent Auto 87.6 % (45.5-73.1); Platelet Count Result 223 k/mm3 (150-375); Red Blood Count 3.09 M/mm3 (4.6-6.20); White Blood Count 19.7 K/mm3 (4.5-10.0)
[2023-10-26 05:43] LABS: Blood Urea Nitrogen 48 mg/dL (9-20); Calcium 8.5 mg/dL (8.4-10.2); Carbon Dioxide > 40 mmol/L (22-30); Chloride 93 mmol/L (98-107); Estimated CRCL calculation 48 ml/min; Estimated Glomerular Filt Rate 55; Glucose 122 mg/dL (65-110); Magnesium 2.4 mg/dL (1.6-2.3); Potassium 5.3 mmol/L (3.4-5.0); Sodium 132 mmol/L (137-145)
[2023-10-26 06:20] LABS: Procalcitonin 0.1 ng/mL
[2023-10-26] MEDS: levoFLOXacin 750 MG/D5W 150 ML 750 MG/150 ML BAG 100 MG IVPB (08:27)
[2023-10-26] MEDS: VENLAFAXINE HCL XR 75 MG CAP.ER.24H 225 MG PO (08:28)
[2023-10-26] MEDS: CYCLOBENZAPRINE HCL 10 MG TABLET PO ×2 (08:28→17:53)
[2023-10-26] MEDS: ATORVASTATIN 20 MG TABLET PO (08:28)
[2023-10-26] MEDS: ASPIRIN 81 MG ENTERIC TABLET PO (08:28)
[2023-10-26] MEDS: lisinopriL 10 MG TABLET PO (08:28)
[2023-10-26] MEDS: ENOXAPARIN 40 MG/0.4 ML SYRINGE SUB-Q (08:28)
[2023-10-26] MEDS: carvediloL 25 MG TABLET PO ×2 (08:28→17:53)
[2023-10-26] MEDS: ARIPiprazole 2 MG TABLET PO (08:28)
[2023-10-26] MEDS: oxyCODONE/ACETAMINOPHEN (*CRX) 10-325 MG TABLET 1 TAB PO ×2 (08:31→17:55)
--- NOTE | 2023-10-26 09:37 | PM.PNPUL ---
Progress Note: A&P Assessment and Plan (1) Acute exacerbation of chronic obstructive pulmonary disease: Code(s): J44.1 - Chronic obstructive pulmonary disease with (acute) exacerbation Status: Acute Assessment and Plan: GOLD grade 4 group E COPD Patient with 100 pack year tobacco use, currently smoking 1 pack per day,? PFTs 02/12/2022 with an FEV1 of 0.75 L, 23% predicted, moderate severe restriction with a TLC of 58% and DLCO 29%. ? Patient with chronic hypoxemic respiratory failure he tells me he wears 6 L 05/06.? Patient has chronic hypercarbic respiratory failure previously on AVAPS-AE and now on BiPAP 28/06 with a spontaneous rate.? No bullous emphysema on his CT scan. ? patient has a paralyzed right hemidiaphragm.? Patient has psoriatic arthritis and is on methotrexate for 10 years and has been off of prednisone for the last month or so. ? Per loutpatient office note on 02/20/22 the patient was to start azithromycin 3 times a week Currently the patient has been treated for an ongoing COPD exacerbation with Medrol and a Z-Berny without improvement followed by treatment with Kenalog and prednisone with doxycycline. 10/23/23: Patient presented to the emergency department with shortness of breath, dyspnea on exertion with no improvement with current outpatient therapy. He had increased work of breathing, retractions and wheezes bilaterally. His white blood cell count was 15.5 with eosinophils 0.6%, creatinine was 1.00, D-dimer was 1.35, BNP was 91, troponin was negative, influenza, RSV and COVID RT PCR studies negative. Patient had a blood gas on 5 L nasal cannula with a pH of 7.38/63/130. He was placed on BiPAP for work of breathing and treated with Solu-Medrol, bronchodilators for COPD exacerbation. 10/24/23: When I saw the patient he was sitting in a chair stating he was doing about the same. He is on BiPAP and stated that the settings were uncomfortable. I changed him to a noninvasive ventilator mode with AVAPS rate of 18, tidal volume 550, EPAP 5, minimal inspiratory pressure 6, maximal inspiratory pressure 25, inspiratory time 1.2, rise of 3 and 40%. His saturations were 90%. He had diffuse wheezing bilaterally. Plan: I will check a CT angiogram of the chest to assess for pulmonary embolism. If this is negative I will order upper and lower extremity Dopplers. I will place the patient on Solu-Medrol 40 mg IV q.6 hours, albuterol and ipratropium nebulizers q.4 hours. I will empirically place him on Levaquin 750 mg p.o. Q 24 hours for tracheobronchitis. If there is evidence of pneumonia on the CT angiogram I will add ceftriaxone. Will continue noninvasive ventilation with the AVAPS mode and settings as above. Later in the day the patient had a CT angiogram which was negative for PE, negative for consolidations or effusions. Procalcitonin was 0.1. 10/25: Patient remained on noninvasive ventilator with the AVAPS mode continuously since yesterday and when I saw him this morning he was on the noninvasive ventilator. He tells me he is breathing a little bit better. He had bilateral expiratory wheezes. He was on 35% with saturations 99%. White blood cell count is 17.4, creatinine is 1.4. Patient is afebrile. Weight is 86.4 and he is cumulative positive 700 mL since admission. Plan: Patient has wheezing are improved. I will decrease his Solu-Medrol to 20 mg IV q.6 hours today. I will continue albuterol and ipratropium nebulizers q.4 hours. I will continue Levaquin for tracheobronchitis. No evidence of pneumonia on his CT scan. The patient feels he will be able to come off the noninvasive ventilator today and I have informed the nurse that he can be p.r.n. with the noninvasive ventilator. 10/26: 10/26: Patient was off the noninvasive ventilator briefly yesterday to eat meals. Patient wore the noninvasive ventilator overnight and is currently on 6 L nasal cannula and eating breakfast. He says his breathing is better. He says he i
--- NOTE | 2023-10-26 10:34 | PM.IMPN ---
Progress Note: A&P Assessment and Plan (1) Acute exacerbation of chronic obstructive pulmonary disease: Code(s): J44.1 - Chronic obstructive pulmonary disease with (acute) exacerbation Status: Acute (2) Chronic respiratory failure with hypoxia and hypercapnia: Code(s): J96.11 - Chronic respiratory failure with hypoxia; J96.12 - Chronic respiratory failure with hypercapnia Status: Acute (3) ISMAEL (acute kidney injury): Code(s): N17.9 - Acute kidney failure, unspecified Status: Acute Plan breathing improved. discussed with Dr. Harrington. doing well off AVAPS and on 6L NC. Daliresp started today. cont solumedrol, levaquin and duonebs q4hr. procalcitonin low, unlikely leukocytosis is indicative of infection ismael resolved after 250cc saline bolus on 10/25 potassium slightly elevated at 5.3 lokelma 5mg x1. recheck bmp at 7pm full code stable. hopefully home tomorrow. Subjective Date/time seen: 10/26/23 10:34 Interval history: NAOE. pt is without complaints. he believes his breathing is better. tolerating diet. Review of Systems Review of Systems: All systems reviewed & are unremarkable except as noted in HPI and below Exam Const: General: comfortable and no acute distress Eyes: Pupils: Equal, round and reactive pupils present Neck: Neck: supple Resp: Effort & Inspection: normal respiratory effort Auscultation: wheezes (expiratory) Cardio: Rate: regular rate Rhythm: regular rhythm Heart sounds: no gallops, no murmurs and no rubs Extrem: General: no edema Objective Data Vital Signs Vital Signs: Vital Signs - 24 hr 10/25/23 11:27 10/25/23 11:27 10/25/23 11:42 Temperature Pulse Rate 106 H 104 H 106 H Respiratory Rate 18 19 19 Blood Pressure Pulse Oximetry 97 Oxygen Delivery BiPAP Oxygen Flow Rate Fraction of Inspired Oxygen 10/25/23 12:01 10/25/23 12:00 10/25/23 12:00 Temperature 96.8 F L Pulse Rate 108 H Respiratory Rate 22 H Blood Pressure 103/62 Pulse Oximetry 97 97 97 Oxygen Delivery High Flow Nasal Cannula High Flow Nasal Cannula Oxygen Flow Rate 6 6 Fraction of Inspired Oxygen 10/25/23 12:00 10/25/23 14:39 10/25/23 16:13 Temperature Pulse Rate 113 H 103 H 104 H Respiratory Rate 23 H Blood Pressure Pulse Oximetry Oxygen Delivery Oxygen Flow Rate Fraction of Inspired Oxygen 10/25/23 16:20 10/25/23 16:24 10/25/23 16:30 Temperature Pulse Rate 106 H 103 H Respiratory Rate 25 H 25 H Blood Pressure Pulse Oximetry 97 97 Oxygen Delivery BiPAP High Flow Nasal Cannula Oxygen Flow Rate 6 Fraction of Inspired Oxygen 10/25/23 16:00 10/25/23 17:32 10/25/23 16:00 Temperature 98 F Pulse Rate 101 H 112 H Respiratory Rate 26 H 22 H Blood Pressure 115/68 Pulse Oximetry 97 97 97 Oxygen Delivery BiPAP BiPAP Oxygen Flow Rate 6 Fraction of Inspired Oxygen 10/25/23 16:00 10/25/23 18:00 10/25/23 19:29 Temperature 97.5 F L Pulse Rate 111 H 97 96 Respiratory Rate 20 Blood Pressure 120/73 Pulse Oximetry 97 Oxygen Delivery Oxygen Flow Rate Fraction of Inspired Oxygen 10/25/23 20:00 10/26/23 00:00 10/26/23 00:47 Temperature 97.6 F Pulse Rate 103 H 98 Respiratory Rate 19 18 Blood Pressure 95/56 L Pulse Oximetry 96 97 97 Oxygen Delivery Nasal Cannula BiPAP Oxygen Flow Rate 6 Fraction of Inspired Oxygen 10/26/23 00:51 10/26/23 00:55 10/26/23 00:00 Temperature Pulse Rate 97 Respiratory Rate Blood Pressure Pulse Oximetry 97 99 Oxygen Delivery BiPAP BiPAP Oxygen Flow Rate Fraction of Inspired Oxygen 35 10/25/23 20:00 10/25/23 22:00 10/26/23 00:00 Temperature Pulse Rate 97 106 H 102 H Respiratory Rate Blood Pressure Pulse Oximetry Oxygen Delivery Oxygen Flow Rate Fraction of Inspired Oxygen 10/26/23 02:00 10/26/23 04:19 10/26/23 01:00 Temperature 98.6 F Pulse Rate 97
[2023-10-26] MEDS: SODIUM ZIRCONIUM CYCLOSILICATE 5 GM POWD.PACK PO (12:09)
[2023-10-26] MEDS: ROFLUMILAST 500 MCG TABLET PO (12:10)
[2023-10-26 19:10] LABS: Anion Gap 1 mmol/L (8-16); Blood Urea Nitrogen 42 mg/dL (9-20); Calcium 8.2 mg/dL (8.4-10.2); Carbon Dioxide 36 mmol/L (22-30); Chloride 93 mmol/L (98-107); Estimated CRCL calculation 52 ml/min; Estimated Glomerular Filt Rate 60; Glucose 166 mg/dL (65-110); Potassium 5.1 mmol/L (3.4-5.0); Sodium 130 mmol/L (137-145)
[2023-10-26] MEDS: GABAPENTIN 300 MG CAPSULE PO (20:09)
[2023-10-26] MEDS: diazePAM (*CRX) 5 MG TABLET PO (21:50)
[2023-10-27] VITALS (26 sets, daily range): BP systolic 110–136; BP diastolic 57–80; PULSE 88–126; RESP 18–22; TEMP 36.2–37; O2SAT 95–100
[2023-10-27] MEDS: methylPREDNISolone SOD SUCC 40 MG VIAL 20 MG IV PUSH ×4 (00:19→18:26)
[2023-10-27] MEDS: ALBUTEROL SULFATE NEB 2.5 MG/3 ML INH INHALATION ×5 (01:10→20:05)
[2023-10-27] MEDS: IPRATROPIUM BR 0.02% INH SOLN 0.5 MG/2.5 ML VIAL INHALATION ×5 (01:10→20:05)
[2023-10-27 05:29] LABS: Hematocrit 31.8 % (42.0-52.0); Hemoglobin 9.6 g/dL (14.0-18.0); Mean Corpuscular HGB Conc 30.2 g/dl (32-36); Mean Corpuscular Hemoglobin 31.5 pg (26-34); Mean Corpuscular Volume 104.3 fl (80-100); Mean Platelet Volume 10.8 fl (7.4-10.4); Platelet Count Result 207 k/mm3 (150-375); Red Blood Count 3.05 M/mm3 (4.6-6.20); Red Cell Distribution Width 14.9 % (11.5-14.5); White Blood Count 15.5 K/mm3 (4.5-10.0)
[2023-10-27 05:46] LABS: Blood Urea Nitrogen 37 mg/dL (9-20); Calcium 8.5 mg/dL (8.4-10.2); Carbon Dioxide > 40 mmol/L (22-30); Chloride 94 mmol/L (98-107); Estimated CRCL calculation 68 ml/min; Estimated Glomerular Filt Rate > 60; Glucose 143 mg/dL (65-110); Magnesium 2.4 mg/dL (1.6-2.3); Potassium 5.1 mmol/L (3.4-5.0); Sodium 131 mmol/L (137-145)
--- NOTE | 2023-10-27 06:22 | PCRCNOTE ---
Window of time for administration has passed. See next scheduled administration.
[2023-10-27] MEDS: WATER FOR IRRIGATION, STERILE 1,000 ML BOTTLE 1000 ML (06:33)
--- NOTE | 2023-10-27 09:39 | P.PNPL_ITS ---
Progress Note: A&P Assessment and Plan (1) Acute exacerbation of chronic obstructive pulmonary disease: Code(s): J44.1 - Chronic obstructive pulmonary disease with (acute) exacerbation Status: Acute Assessment and Plan: GOLD grade 4 group E COPD Patient with 100 pack year tobacco use, currently smoking 1 pack per day,? PFTs 02/12/2022 with an FEV1 of 0.75 L, 23% predicted, moderate severe restriction with a TLC of 58% and DLCO 29%. ? Patient with chronic hypoxemic respiratory failure he tells me he wears 6 L 05/06.? Patient has chronic hypercarbic respiratory failure previously on AVAPS-AE and now on BiPAP 28/06 with a spontaneous rate.? No bullous emphysema on his CT scan. ? patient has a paralyzed right hemidiaphragm.? Patient has psoriatic arthritis and is on methotrexate for 10 years and has been off of prednisone for the last month or so. ? Per outpatient office note on 02/20/22 the patient was to start azithromycin 3 times a week. Follows with transportation services representative Dr. Sears at [facility]. Currently the patient has been treated for an ongoing COPD exacerbation with Medrol and a Z-Berny without improvement followed by treatment with Kenalog and prednisone with doxycycline. 10/23/23: Patient presented to the emergency department with shortness of breath, dyspnea on exertion with no improvement with current outpatient therapy. He had increased work of breathing, retractions and wheezes bilaterally. His white blood cell count was 15.5 with eosinophils 0.6%, creatinine was 1.00, D- dimer was 1.35, BNP was 91, troponin was negative, influenza, RSV and COVID RT PCR studies negative. Patient had a blood gas on 5 L nasal cannula with a pH of 7.38/63/130. He was placed on BiPAP for work of breathing and treated with Solu-Medrol, bronchodilators for COPD exacerbation. 10/24/23: When I saw the patient he was sitting in a chair stating he was doing about the same. He is on BiPAP and stated that the settings were uncomfortable. I changed him to a noninvasive ventilator mode with AVAPS rate of 18, tidal volume 550, EPAP 5, minimal inspiratory pressure 6, maximal inspiratory pressure 25, inspiratory time 1.2, rise of 3 and 40%. His saturations were 90%. He had diffuse wheezing bilaterally. Plan: I will check a CT angiogram of the chest to assess for pulmonary embolism. If this is negative I will order upper and lower extremity Dopplers. I will place the patient on Solu-Medrol 40 mg IV q.6 hours, albuterol and ipratropium nebulizers q.4 hours. I will empirically place him on Levaquin 750 mg p.o. Q 24 hours for tracheobronchitis. If there is evidence of pneumonia on the CT angiogram I will add ceftriaxone. Will continue noninvasive ventilation with the AVAPS mode and settings as above. Later in the day the patient had a CT angiogram which was negative for PE, negative for consolidations or effusions. Procalcitonin was 0.1. 10/25: Patient remained on noninvasive ventilator with the AVAPS mode continuously since yesterday and when I saw him this morning he was on the noninvasive ventilator. He tells me he is breathing a little bit better. He had bilateral expiratory wheezes. He was on 35% with saturations 99%. White blood cell count is 17.4, creatinine is 1.4. Patient is afebrile. Weight is 86.4 and he is cumulative positive 700 mL since admission. Plan: Patient has wheezing are improved. I will decrease his Solu-Medrol to 20 mg IV q.6 hours today. I will continue albuterol and ipratropium nebulizers q.4 hours. I will continue Levaquin for tracheobronchitis. No evidence of pneumonia on his CT scan. The patient feels he will be able to come off the noninvasive ventilator today and I have informed the nurse that he can be p.r.n.
[2023-10-27] MEDS: levoFLOXacin 750 MG/D5W 150 ML 750 MG/150 ML BAG 100 MG IVPB (11:00)
[2023-10-27] MEDS: oxyCODONE/ACETAMINOPHEN (*CRX) 10-325 MG TABLET 1 TAB PO ×2 (11:00→18:27)
[2023-10-27] MEDS: ENOXAPARIN 40 MG/0.4 ML SYRINGE SUB-Q (11:01)
[2023-10-27] MEDS: ARIPiprazole 2 MG TABLET PO (11:02)
[2023-10-27] MEDS: ROFLUMILAST 500 MCG TABLET PO (11:02)
[2023-10-27] MEDS: carvediloL 25 MG TABLET PO ×2 (11:02→18:27)
[2023-10-27] MEDS: ASPIRIN 81 MG ENTERIC TABLET PO (11:02)
[2023-10-27] MEDS: lisinopriL 10 MG TABLET PO (11:02)
[2023-10-27] MEDS: VENLAFAXINE HCL XR 75 MG CAP.ER.24H 225 MG PO (11:02)
[2023-10-27] MEDS: ATORVASTATIN 20 MG TABLET PO (11:02)
[2023-10-27] MEDS: CYCLOBENZAPRINE HCL 10 MG TABLET PO ×2 (11:02→18:27)
--- NOTE | 2023-10-27 16:22 | PM.IMPN ---
Progress Note: A&P Assessment and Plan (1) Acute exacerbation of chronic obstructive pulmonary disease: Code(s): J44.1 - Chronic obstructive pulmonary disease with (acute) exacerbation Status: Acute (2) Chronic respiratory failure with hypoxia and hypercapnia: Code(s): J96.11 - Chronic respiratory failure with hypoxia; J96.12 - Chronic respiratory failure with hypercapnia Status: Acute (3) ISMAEL (acute kidney injury): Code(s): N17.9 - Acute kidney failure, unspecified Status: Acute Plan codp exacerbation: acute hypoxic resp failure: Pulmonary on board doing well off AVAPS and on 6L NC. Daliresp started. Cont solumedrol, levaquin and duonebs q4hr. procalcitonin low, unlikely leukocytosis is indicative of infection ismael resolved after 250cc saline bolus on 10/25 potassium slightly elevated at 5.3 lokelma 5mg x1. recheck bmp at 7pm full code DVT prophylaxis Lovenox Subjective Date/time seen: 10/27/23 16:22 Interval history: Feels been short of breath today. On BiPAP. Going to use home unit. Still wheezy and short of breath. Has some cough. Intermittently tachycardic. Review of Systems Review of Systems: All systems reviewed & are unremarkable except as noted in HPI and below Exam Narrative: GENERAL: The patient is well developed, mildly tachypneic HEENT: Nonicteric sclerae, PERRLA, EOMI. Oropharynx clear. Moist mucous membranes. Conjunctivae appear well perfused. CHEST: Chest wall is nontender. HEART: Tachycardic, without murmur, rubs, or gallops LUNGS: Coarse breath sounds bilaterally. no respiratory distress on BiPAP wheezes present ABDOMEN: Soft, positive bowel sounds, non-tender, no organomegaly. SKIN: No rash, no excessive bruising, petechiae, or purpura. NEUROLOGIC: Cranial nerves II-XII intact, alert and oriented x 3, no gross motor deficits EXTREMITIES: no edema, cyanosis or clubbing Objective Data Vital Signs Vital Signs: Vital Signs - 24 hr 10/26/23 18:00 10/26/23 20:23 10/26/23 20:37 Temperature Pulse Rate 89 92 98 Respiratory Rate 20 Blood Pressure Pulse Oximetry 97 Oxygen Delivery High Flow Nasal Cannula Oxygen Flow Rate 6 Fraction of Inspired Oxygen 10/26/23 20:41 10/26/23 20:00 10/26/23 20:00 Temperature 98.7 F Pulse Rate 98 98 Respiratory Rate 20 20 Blood Pressure 99/59 L Pulse Oximetry 97 97 Oxygen Delivery Nasal Cannula Oxygen Flow Rate 6 Fraction of Inspired Oxygen 10/26/23 23:51 10/26/23 21:30 10/27/23 00:00 Temperature 97.5 F L Pulse Rate 102 H 98 Respiratory Rate 20 Blood Pressure 134/78 Pulse Oximetry 100 97 100 Oxygen Delivery BiPAP BiPAP Oxygen Flow Rate Fraction of Inspired Oxygen 35 10/26/23 20:00 10/27/23 04:00 10/27/23 01:10 Temperature Pulse Rate 96 101 H Respiratory Rate 20 Blood Pressure Pulse Oximetry 100 Oxygen Delivery BiPAP Oxygen Flow Rate Fraction of Inspired Oxygen 35 10/27/23 01:20 10/27/23 02:00 10/27/23 04:00 Temperature Pulse Rate 96 108 H 88 Respiratory Rate 20 Blood Pressure Pulse Oximetry Oxygen Delivery Oxygen Flow Rate Fraction of Inspired Oxygen 10/27/23 04:00 10/27/23 07:20 10/27/23 07:20 Temperature 97.5 F L Pulse Rate 96 96 96 Respiratory Rate 20 18 18 Blood Pressure 110/59 L Pulse Oximetry 100 99 Oxygen Delivery Nasal Cannula Oxygen Flow Rate 5 Fraction of Inspired Oxygen 10/27/23 07:30 10/27/23 08:00 10/27/23 11:02 Temperature 98.1 F Pulse Rate 98 112 H 121 H Respiratory Rate 20 18 Blood Pressure 130/57 L Pulse Oximetry 96 Oxygen Delivery Oxygen Flow Rate Fraction of Inspired Oxygen 10/27/23 11:28 10/27/23 11:05 10/27/23 11:15 Temperature 98.5 F Pulse Rate 121 H 101 H 102 H Respiratory Rate 20 20 20 Blood Pressure 114/67 Pulse Oximetry 95 Oxygen Delivery Oxygen Flow Rate Fraction of Inspired Oxygen 10/27/23
[2023-10-27] MEDS: GABAPENTIN 300 MG CAPSULE PO (20:17)
[2023-10-28] VITALS (27 sets, daily range): BP systolic 108–155; BP diastolic 51–97; PULSE 64–122; RESP 14–24; TEMP 35.8–36.4; O2SAT 95–100
[2023-10-28] MEDS: ALBUTEROL SULFATE NEB 2.5 MG/3 ML INH INHALATION ×5 (00:40→22:10)
[2023-10-28] MEDS: IPRATROPIUM BR 0.02% INH SOLN 0.5 MG/2.5 ML VIAL INHALATION ×5 (00:40→22:06)
[2023-10-28] MEDS: methylPREDNISolone SOD SUCC 40 MG VIAL 20 MG IV PUSH ×2 (00:40→05:29)
[2023-10-28] MEDS: oxyCODONE/ACETAMINOPHEN (*CRX) 10-325 MG TABLET 1 TAB PO ×4 (02:38→23:28)
[2023-10-28 04:44] LABS: Basophils Percent Auto 0.1 % (0.2-1.2); Hematocrit 34.4 % (42.0-52.0); Hemoglobin 10.5 g/dL (14.0-18.0); Immature Granulocyte Absolute 0.17 K/mm3 (0.00-0.031); Immature Granulocyte Percent A 1.2 % (0-0.5); Lymphocytes Absolute Auto 0.47 K/mm3 (0.9-3.2); Lymphocytes Percent Auto 3.4 % (18.3-44.2); Mean Corpuscular HGB Conc 30.5 g/dl (32-36); Mean Corpuscular Hemoglobin 31.7 pg (26-34); Mean Corpuscular Volume 103.9 fl (80-100); Mean Platelet Volume 10.6 fl (7.4-10.4); Monocytes Percent Auto 7.3 % (2.6-8.5); Neutrophils Absolute Auto 12.3 K/mm3 (1.3-6.7); Platelet Count Result 222 k/mm3 (150-375); Red Blood Count 3.31 M/mm3 (4.6-6.20); Red Cell Distribution Width 14.7 % (11.5-14.5); White Blood Count 13.9 K/mm3 (4.5-10.0)
[2023-10-28 05:01] LABS: Alanine Aminotransferase 49 U/L (6-50); Albumin Level 3.7 g/dL (3.5-5.1); Alkaline Phosphatase 85 U/L (38-126); Aspartate Amino Transferase 42 U/L (17-59); Bilirubin,Total 0.5 mg/dL (0.2-1.3); Blood Urea Nitrogen 32 mg/dL (9-20); Calcium 8.5 mg/dL (8.4-10.2); Carbon Dioxide > 40 mmol/L (22-30); Chloride 94 mmol/L (98-107); Estimated CRCL calculation 68 ml/min; Estimated Glomerular Filt Rate > 60; Glucose 132 mg/dL (65-110); Magnesium 2.5 mg/dL (1.6-2.3); Potassium 5.2 mmol/L (3.4-5.0); Sodium 132 mmol/L (137-145)
[2023-10-28] MEDS: ROFLUMILAST 500 MCG TABLET PO (09:17)
[2023-10-28] MEDS: ARIPiprazole 2 MG TABLET PO (09:17)
[2023-10-28] MEDS: ASPIRIN 81 MG ENTERIC TABLET PO (09:17)
[2023-10-28] MEDS: levoFLOXacin 750 MG/D5W 150 ML 750 MG/150 ML BAG 100 MG IVPB (09:18)
[2023-10-28] MEDS: VENLAFAXINE HCL XR 75 MG CAP.ER.24H 225 MG PO (09:18)
[2023-10-28] MEDS: CYCLOBENZAPRINE HCL 10 MG TABLET PO ×2 (09:18→18:01)
[2023-10-28] MEDS: carvediloL 25 MG TABLET PO ×2 (09:18→18:01)
[2023-10-28] MEDS: ATORVASTATIN 20 MG TABLET PO (09:18)
[2023-10-28] MEDS: ENOXAPARIN 40 MG/0.4 ML SYRINGE SUB-Q (09:18)
[2023-10-28] MEDS: lisinopriL 10 MG TABLET PO (09:18)
--- NOTE | 2023-10-28 13:48 | PM.IMPN ---
Progress Note: A&P Assessment and Plan (1) Acute exacerbation of chronic obstructive pulmonary disease: Code(s): J44.1 - Chronic obstructive pulmonary disease with (acute) exacerbation Status: Acute (2) Chronic respiratory failure with hypoxia and hypercapnia: Code(s): J96.11 - Chronic respiratory failure with hypoxia; J96.12 - Chronic respiratory failure with hypercapnia Status: Acute (3) ISMAEL (acute kidney injury): Code(s): N17.9 - Acute kidney failure, unspecified Status: Acute Plan codp exacerbation: acute hypoxic resp failure: Pulmonary on board doing well off AVAPS and on 6L NC. Daliresp started. Cont solumedrol, levaquin and duonebs q4hr. Will switch Solu-Medrol to oral prednisone procalcitonin low, unlikely leukocytosis is indicative of infection ismael resolved after 250cc saline bolus on 10/25 Mild hyperkalemia continue to monitor on lisinopril and spironolactone home doses full code DVT prophylaxis Lovenox Subjective Date/time seen: 10/28/23 13:48 Interval history: Feels better today. Uses home unit last night. Wheezing less. Still has some cough. Not quite back to his baseline yet Review of Systems Review of Systems: All systems reviewed & are unremarkable except as noted in HPI and below Exam Narrative: GENERAL: The patient is well developed, mildly tachypneic HEENT: Nonicteric sclerae, PERRLA, EOMI. Oropharynx clear. Moist mucous membranes. Conjunctivae appear well perfused. CHEST: Chest wall is nontender. HEART: Intermittently tachycardic, without murmur, rubs, or gallops LUNGS: Coarse breath sounds bilaterally. no respiratory distress on BiPAP wheezes present ABDOMEN: Soft, positive bowel sounds, non-tender, no organomegaly. SKIN: No rash, no excessive bruising, petechiae, or purpura. NEUROLOGIC: Cranial nerves II-XII intact, alert and oriented x 3, no gross motor deficits EXTREMITIES: no edema, cyanosis or clubbing Objective Data Vital Signs Vital Signs: Vital Signs - 24 hr 10/27/23 14:00 10/27/23 16:00 10/27/23 15:05 Temperature 98.6 F Pulse Rate 114 H 113 H 109 H Respiratory Rate 22 H 20 Blood Pressure 131/80 Pulse Oximetry 98 Oxygen Delivery Oxygen Flow Rate Fraction of Inspired Oxygen 10/27/23 15:15 10/27/23 18:27 10/27/23 16:00 Temperature Pulse Rate 105 H 110 H 104 H Respiratory Rate 20 Blood Pressure Pulse Oximetry Oxygen Delivery Oxygen Flow Rate Fraction of Inspired Oxygen 10/27/23 18:00 10/27/23 16:00 10/27/23 19:45 Temperature 97.1 F L Pulse Rate 112 H 92 Respiratory Rate 20 Blood Pressure 136/72 Pulse Oximetry 99 100 Oxygen Delivery BiPAP Oxygen Flow Rate Fraction of Inspired Oxygen 35 10/27/23 20:05 10/27/23 20:05 10/27/23 20:20 Temperature Pulse Rate 98 98 95 Respiratory Rate 20 20 Blood Pressure Pulse Oximetry 99 Oxygen Delivery Nasal Cannula Oxygen Flow Rate 6 Fraction of Inspired Oxygen 10/27/23 20:00 10/28/23 00:00 10/28/23 00:00 Temperature 97 F L Pulse Rate 95 Respiratory Rate 18 Blood Pressure 155/51 H Pulse Oximetry 99 100 100 Oxygen Delivery BiPAP BiPAP Oxygen Flow Rate Fraction of Inspired Oxygen 35 35 10/28/23 00:40 10/28/23 00:50 10/27/23 21:45 Temperature Pulse Rate 98 94 93 Respiratory Rate 20 20 Blood Pressure Pulse Oximetry 98 Oxygen Delivery BiPAP Oxygen Flow Rate Fraction of Inspired Oxygen 10/27/23 20:00 10/27/23 22:00 10/28/23 00:00 Temperature Pulse Rate 93 96 99 Respiratory Rate Blood Pressure Pulse Oximetry Oxygen Delivery Oxygen Flow Rate Fraction of Inspired Oxygen 10/28/23 02:00 10/28/23 04:00 10/28/23 04:00 Temperature 97.2 F L Pulse Rate 75 93 90 Respiratory Rate 22 H Blood Pressure 147/78 H Pulse Oximetry 99 Oxygen Delivery Oxygen Flow Rate Fraction of Inspired Oxygen 10/28/23 04:00
[2023-10-28] MEDS: predniSONE 20 MG TABLET 40 MG PO (14:25)
--- NOTE | 2023-10-28 16:53 | PM.PNPUL ---
Progress Note: A&P Assessment and Plan (1) Acute exacerbation of chronic obstructive pulmonary disease: Code(s): J44.1 - Chronic obstructive pulmonary disease with (acute) exacerbation Status: Acute Assessment and Plan: GOLD grade 4 group E COPD Patient with 100 pack year tobacco use, currently smoking 1 pack per day,? PFTs 02/12/2022 with an FEV1 of 0.75 L, 23% predicted, moderate severe restriction with a TLC of 58% and DLCO 29%. ? Patient with chronic hypoxemic respiratory failure he tells me he wears 6 L 05/06.? Patient has chronic hypercarbic respiratory failure previously on AVAPS-AE and now on BiPAP 28/06 with a spontaneous rate.? No bullous emphysema on his CT scan. ? patient has a paralyzed right hemidiaphragm.? Patient has psoriatic arthritis and is on methotrexate for 10 years and has been off of prednisone for the last month or so. ? Per outpatient office note on 02/20/22 the patient was to start azithromycin 3 times a week. Follows with printing machine mechanic Dr. Sears at [facility]. Currently the patient has been treated for an ongoing COPD exacerbation with Medrol and a Z-Berny without improvement followed by treatment with Kenalog and prednisone with doxycycline. 10/23/23: Patient presented to the emergency department with shortness of breath, dyspnea on exertion with no improvement with current outpatient therapy. He had increased work of breathing, retractions and wheezes bilaterally. His white blood cell count was 15.5 with eosinophils 0.6%, creatinine was 1.00, D-dimer was 1.35, BNP was 91, troponin was negative, influenza, RSV and COVID RT PCR studies negative. Patient had a blood gas on 5 L nasal cannula with a pH of 7.38/63/130. He was placed on BiPAP for work of breathing and treated with Solu-Medrol, bronchodilators for COPD exacerbation. 10/24/23: When I saw the patient he was sitting in a chair stating he was doing about the same. He is on BiPAP and stated that the settings were uncomfortable. I changed him to a noninvasive ventilator mode with AVAPS rate of 18, tidal volume 550, EPAP 5, minimal inspiratory pressure 6, maximal inspiratory pressure 25, inspiratory time 1.2, rise of 3 and 40%. His saturations were 90%. He had diffuse wheezing bilaterally. Plan: I will check a CT angiogram of the chest to assess for pulmonary embolism. If this is negative I will order upper and lower extremity Dopplers. I will place the patient on Solu-Medrol 40 mg IV q.6 hours, albuterol and ipratropium nebulizers q.4 hours[address] I will empirically place him on Levaquin 750 mg p.o. Q 24 hours for tracheobronchitis. If there is evidence of pneumonia on the CT angiogram I will add ceftriaxone. Will continue noninvasive ventilation with the AVAPS mode and settings as above. Later in the day the patient had a CT angiogram which was negative for PE, negative for consolidations or effusions. Procalcitonin was 0.1. 10/25: Patient remained on noninvasive ventilator with the AVAPS mode continuously since yesterday and when I saw him this morning he was on the noninvasive ventilator. He tells me he is breathing a little bit better. He had bilateral expiratory wheezes. He was on 35% with saturations 99%. White blood cell count is 17.4, creatinine is 1.4. Patient is afebrile. Weight is 86.4 and he is cumulative positive 700 mL since admission. Plan: Patient has wheezing are improved. I will decrease his Solu-Medrol to 20 mg IV q.6 hours today. I will continue albuterol and ipratropium nebulizers q.4 hours. I will continue Levaquin for tracheobronchitis. No evidence of pneumonia on his CT scan. The patient feels he will be able to come off the noninvasive ventilator today and I have informed the nurse that he can be p.r.n. with the noninvasive ventilator. 10/26: 10/26: Patient was off the noninvasive ventilator briefly yesterday to eat meals. Patient wore the noninvasive ventilator overnight and is currently on 6 L nasal cannula and eatin
[2023-10-28] MEDS: GABAPENTIN 300 MG CAPSULE PO (21:19)
[2023-10-29] VITALS (19 sets, daily range): BP systolic 113–128; BP diastolic 69–73; PULSE 83–133; RESP 17–20; TEMP 36.1–36.2; O2SAT 85–100
[2023-10-29 04:49] LABS: Potassium 5.1 mmol/L (3.4-5.0)
[2023-10-29 04:59] LABS: Alanine Aminotransferase 43 U/L (6-50); Albumin Level 3.2 g/dL (3.5-5.1); Alkaline Phosphatase 77 U/L (38-126); Anion Gap 3 mmol/L (8-16); Aspartate Amino Transferase 36 U/L (17-59); Bilirubin,Total 0.5 mg/dL (0.2-1.3); Blood Urea Nitrogen 36 mg/dL (9-20); Calcium 8.7 mg/dL (8.4-10.2); Carbon Dioxide 32 mmol/L (22-30); Chloride 95 mmol/L (98-107); Estimated CRCL calculation 78 ml/min; Estimated Glomerular Filt Rate > 60; Glucose 192 mg/dL (65-110); Magnesium 2.7 mg/dL (1.6-2.3); Sodium 130 mmol/L (137-145)
[2023-10-29] MEDS: IPRATROPIUM BR 0.02% INH SOLN 0.5 MG/2.5 ML VIAL INHALATION ×3 (06:15→14:19)
[2023-10-29] MEDS: ALBUTEROL SULFATE NEB 2.5 MG/3 ML INH INHALATION ×3 (06:15→14:19)
[2023-10-29 06:24] LABS: Basophils Percent Auto 0.2 % (0.2-1.2); Eosinophils Percent Auto 0.2 % (0-4.4); Hematocrit 34.8 % (42.0-52.0); Hemoglobin 10.5 g/dL (14.0-18.0); Immature Granulocyte Absolute 0.22 K/mm3 (0.00-0.031); Immature Granulocyte Percent A 1.6 % (0-0.5); Immature Platelet Fraction Pct 8.5 % (0.9-11.2); Lymphocytes Absolute Auto 0.91 K/mm3 (0.9-3.2); Lymphocytes Percent Auto 6.5 % (18.3-44.2); Mean Corpuscular HGB Conc 30.2 g/dl (32-36); Mean Corpuscular Hemoglobin 32.3 pg (26-34); Mean Corpuscular Volume 107.1 fl (80-100); Mean Platelet Volume 11.5 fl (7.4-10.4); Monocytes Absolute Auto 2.1 K/mm3 (0.1-0.6); Monocytes Percent Auto 15.1 % (2.6-8.5); Neutrophils Absolute Auto 10.7 K/mm3 (1.3-6.7); Neutrophils Percent Auto 76.4 % (45.5-73.1); Platelet Count Result 192 k/mm3 (150-375); Red Blood Count 3.25 M/mm3 (4.6-6.20); Red Cell Distribution Width 14.9 % (11.5-14.5)
[2023-10-29 07:34] LABS: Anisocytosis 1+ (NORMAL); Platelet Estimate Adequate (Adequate); Schistocytes None Seen (NORMAL)
[2023-10-29] MEDS: ENOXAPARIN 40 MG/0.4 ML SYRINGE SUB-Q (10:49)
[2023-10-29] MEDS: VENLAFAXINE HCL XR 75 MG CAP.ER.24H 225 MG PO (10:49)
[2023-10-29] MEDS: carvediloL 25 MG TABLET PO (10:50)
[2023-10-29] MEDS: ATORVASTATIN 20 MG TABLET PO (10:50)
[2023-10-29] MEDS: oxyCODONE/ACETAMINOPHEN (*CRX) 10-325 MG TABLET 1 TAB PO (10:50)
[2023-10-29] MEDS: CYCLOBENZAPRINE HCL 10 MG TABLET PO (10:50)
[2023-10-29] MEDS: ARIPiprazole 2 MG TABLET PO (10:51)
[2023-10-29] MEDS: levoFLOXacin 750 MG/D5W 150 ML 750 MG/150 ML BAG 100 MG IVPB (10:51)
[2023-10-29] MEDS: ROFLUMILAST 500 MCG TABLET PO (10:51)
[2023-10-29] MEDS: ASPIRIN 81 MG ENTERIC TABLET PO (10:51)
[2023-10-29] MEDS: predniSONE 20 MG TABLET 40 MG PO (10:51)
[2023-10-29] MEDS: lisinopriL 10 MG TABLET PO (10:51)
--- NOTE | 2023-10-29 13:08 | PM.DS ---
DS: Admitting Diagnosis Discharge Date 10/29/2023 Admitting Diagnosis Shortness of breath DS: Discharge Diagnosis Discharge Diagnosis (1) Acute exacerbation of chronic obstructive pulmonary disease: Code(s): J44.1 - Chronic obstructive pulmonary disease with (acute) exacerbation Status: Acute (2) Chronic respiratory failure with hypoxia and hypercapnia: Code(s): J96.11 - Chronic respiratory failure with hypoxia; J96.12 - Chronic respiratory failure with hypercapnia Status: Acute (3) ISMAEL (acute kidney injury): Code(s): N17.9 - Acute kidney failure, unspecified Status: Acute DS: Summary Hospital Course Hospital Course: codp exacerbation: acute hypoxic resp failure:? Pulmonary on board doing well off AVAPS and on 6L NC. Daliresp started.? Cont solumedrol, levaquin and duonebs q4hr.? Prednisone days discharge. Daliresp Added because of frequent exacerbation procalcitonin low, unlikely leukocytosis is indicative of infection ismael resolved after 250cc saline bolus on 10/25 Mild hyperkalemia continue to monitor on lisinopril and spironolactone home doses DC potassium supplement at discharge due to hyperkalemia full code Time Spent with Patient Time attestation: Total time spent providing and/or coordinating discharge services: 35 minutes Exam Narrative: GENERAL: The patient is well developed, mildly tachypneic HEENT: Nonicteric sclerae, PERRLA, EOMI. Oropharynx clear. Moist mucous membranes. Conjunctivae appear well perfused. CHEST: Chest wall is nontender. HEART: Intermittently tachycardic, without murmur, rubs, or gallops LUNGS: Coarse breath sounds bilaterally. no respiratory distress on BiPAP wheezes present ABDOMEN: Soft, positive bowel sounds, non-tender, no organomegaly. SKIN: No rash, no excessive bruising, petechiae, or purpura. NEUROLOGIC: Cranial nerves II-XII intact, alert and oriented x 3, no gross motor deficits EXTREMITIES: no edema, cyanosis or clubbing DS: Data Data Completed and Pending Labs on day of discharge: Labs from last 24 hours 10/29/23 10/29/23 10/24/23 06:12 04:11 11:40 WBC 14.0 H RBC 3.25 L Hgb 10.5 L Hct 34.8 L MCV 107.1 H MCH 32.3 MCHC 30.2 L RDW 14.9 H Plt Count 192 MPV 11.5 H Immature Gran % (Auto) 1.6 H Neut % (Auto) 76.4 H Lymph % (Auto) 6.5 L Miner % (Auto) 15.1 H Eos % (Auto) 0.2 Baso % (Auto) 0.2 Lymph # (Auto) 0.91 Miner # (Auto) 2.1 H Eos # (Auto) 0.0 Baso # (Auto) 0.0 Abs Immat Gran (auto) 0.22 H Absolute Neuts (auto) 10.7 H Absolute Nucleated RBC 0.0 Nucleated RBC % 0.0 Platelet Estimate Adequate % Immature Plt Fraction 8.5 Anisocytosis 1+ Schistocytes None seen Sodium 130 L Potassium 5.1 H Chloride 95 L Carbon Dioxide 32 H Anion Gap 3 L BUN 36 H Creatinine 0.90 Estim Creat Clear Calc 78 Estimated GFR > 60 Glucose 192 H Calcium 8.7 Magnesium 2.7 H Total Bilirubin 0.5 AST 36 ALT 43 Alkaline Phosphatase 77 Total Protein 6.0 L Albumin 3.2 L Nasal RSV Type A (PCR) TNP Nasal RSV Type B (PCR) TNP Chlamy pneumoniae PCR TNP Adenovirus DNA TNP Human Bocavirus (RADHA) TNP Coronavirus Type OC43 TNP Coronavirus Type HKU1 TNP Coronavirus Type 229E TNP Coronavirus Type NL63 TNP Human Metapneumovir PCR TNP Influenza A (PCR) TNP Influenza A (H1) RNA TNP Influenza A (H3) PCR TNP M. pneumoniae DNA TNP Parainfluenza PCR TNP Parainfluenza 2 (PCR) TNP Parainfluenza 3 RNA (PCR) TNP Parainfluenza 4 (PCR) TNP Rhino/Enterovirus (RADHA) TNP SARS-CoV-2 RNA (RT-PCR) TNP Influenza Type B (PCR) TNP Misc Test Comment TNP Preliminary micro results at discharge 10/24/23 10:53 Blood Culture - Preliminary Blood 10/24/23 11:23 Blood Culture - Preliminary Blood Imaging Radiologist's impression: ITS Impressions Cindy
--- NOTE | 2023-10-29 15:42 | HOMEO2EVAL ---
Evaluation was performed at [facility] Home Oxygen Evaluation RC: Home Oxygen (O2) Evaluation Start: 10/29/23 13:07 Freq: ONCE Status: Active Protocol: RPE Activity Type Activity Date Activity User E-sign Co-sign Detail Recorded Client Recorded Date Recorded By Document 10/29/23 14:00 KAG [id number] 10/29/23 14:24 KAG Document 10/29/23 14:05 KAG [id number] 10/29/23 14:25 KAG Document 10/29/23 14:08 KAG [id number] 10/29/23 14:26 KAG Document 10/29/23 14:12 KAG [id number] 10/29/23 14:27 KAG Document 10/29/23 14:15 KAG [id number] 10/29/23 14:29 KAG Document 10/29/23 14:18 KAG [id number] 10/29/23 14:30 KAG Document 10/29/23 14:30 KAG [id number] 10/29/23 14:31 KAG 10/29/23 10/29/23 10/29/23 14:00 14:05 14:08 Home O2 Evaluation [Oxygen] -Test Phase Resting Resting Resting -Oxygen Delivery Room Air Nasal Cannula Nasal Cannula -Oxygen Flow Rate (L/min) 1 2 -Fraction of Inspired Oxygen (%) 24 28 [Pulse Oximetry] -Pulse Oximetry (90-100 %) 88 L 88 L 93 [Pulse Rate] -Pulse Rate (60-100 beats/min) 115 H 121 H 114 H [Evaluation] -Activity Tolerance -Rating of Perceived Dyspnea (PD) [Exercise] -Ambulation Distance (feet) -Ambulation Distance (meters) [Comments] -Home Oxygen Evaluation Comments Pt is resting, Pt is resting, Pt is resting, increased FiO2 increased FiO2 SpO2 did not to 1L to 2L decrease below 90% on 2L. [Charges] -Evaluation Charges O2 Evaluation by 10/29/23 10/29/23 10/29/23 14:12 14:15 14:18 Home O2 Evaluation [Oxygen] -Test Phase Exercise Exercise Exercise -Oxygen Delivery Room Air Nasal Cannula Nasal Cannula -Oxygen Flow Rate (L/min) 1 2 -Fraction of Inspired Oxygen (%) 24 28 [Pulse Oximetry] -Pulse Oximetry (90-100 %) 85 L 87 L 87 L [Pulse Rate] -Pulse Rate (60-100 beats/min) 121 H 126 H 130 H [Evaluation] -Activity Tolerance Fair Fair Fair -Rating of Perceived Dyspnea (PD) +3 Moderate +3 Moderate +3 Moderate Difficulty, But Difficulty, But Difficulty, But Can Continue Can Continue Can Continue [Exercise] -Ambulation Distance (feet) 40 20 20 -Ambulation Distance (meters) 12.19 6.09 6.09 [Comments] -Home Oxygen Evaluation Comments Pt walked from Had pt january Pt walked from bathroom to place while bathroom and doorway and standing up, back. Increased back to bed. SpO2 remained FiO2 to 3L below 90%, increased to 2L . [Charges] -Evaluation Charges 10/29/23 14:30 Home O2 Evaluation [Oxygen] -Test Phase Exercise -Oxygen Delivery Nasal Cannula -Oxygen Flow Rate (L/min) 3 -Fraction of Inspired Oxygen (%) 32 [Pulse Oximetry] -Pulse Oximetry (90-100 %) 93 [Pulse Rate] -Pulse Rate (60-100 beats/min) 133 H [Evaluation] -Activity Tolerance Fair -Rating of Perceived Dyspnea (PD) +3 Moderate Difficulty, But Can Continue [Exercise] -Ambulation Distance (feet) 20 -Ambulation Distance (meters) 6.09 [Comments] -Home Oxygen Evaluation Comments Pt maintain with 3L with activity and maintaining SpO2 levels above 90%. [Charges] -Evaluation Charges
--- NOTE | 2023-10-29 15:48 | PCRCNOTE ---
Patient was evaluated for home O2. Patient will need 2 liters with rest and 3 liters with activity. This patient is being set up with [employer]. All papers will be faxed to company. RN will be informed.
== END 2023-10-29 15:42 | disposition home or self-care (01) | DRG 190 ==
LOC: ANHED 23:45 → ANHIMU 10-24 01:32
PROVIDERS: General Practice; Admitting Provider Internal Medicine; Emergency Provider Emergency Medicine; PCP Family Medicine; Visit Provider Internal Medicine
DX: J44.1 Chronic obstructive pulmonary disease with (acute) exacerbation (principal); J96.01 Acute respiratory failure with hypoxia; I25.3 Aneurysm of heart; J96.11 Chronic respiratory failure with hypoxia; J96.12 Chronic respiratory failure with hypercapnia; N17.9 Acute kidney failure, unspecified; E87.0 Hyperosmolality and hypernatremia; I11.0 Hypertensive heart disease with heart failure; I50.9 Heart failure, unspecified; I25.10 Atherosclerotic heart disease of native coronary artery without angina pectoris; I70.0 Atherosclerosis of aorta; I48.0 Paroxysmal atrial fibrillation; J98.6 Disorders of diaphragm; L40.50 Arthropathic psoriasis, unspecified; M15.9 Polyosteoarthritis, unspecified; E78.5 Hyperlipidemia, unspecified; G47.33 Obstructive sleep apnea (adult) (pediatric); F17.210 Nicotine dependence, cigarettes, uncomplicated; F31.9 Bipolar disorder, unspecified; Z20.822 Contact with and (suspected) exposure to COVID-19; Z96.642 Presence of left artificial hip joint; Z99.81 Dependence on supplemental oxygen; Z79.631 Long term (current) use of antimetabolite agent; Z79.82 Long term (current) use of aspirin; Z95.5 Presence of coronary angioplasty implant and graft
CPT/HCPCS: 36415; 36600; 71045; 71275; 80048; 80053; 82805; 83605; 83735; 83880; 84145; 84484; 85025; 85027; 85055; 85380; 87040; 87633; 87637; 93005; 93970; 94003; 94618; 94640; 96365; 96375; 99285; A9270; J1650; J1956; J2920; J2930; J3475; J7030; J7050; J7512; Q9967

== ENCOUNTER 2023-12-05 13:49 | Inpatient (IN) | payer BC, MEDICARE, SELFPAY ==
[2023-12-05] VITALS (33 sets, daily range): BP systolic 92–138; BP diastolic 51–107; PULSE 85–111; RESP 15–34; TEMP 36.7; O2SAT 91–100; BMI 28.5; BMI 28.7
--- NOTE | ~2023-12-05 | XR_ITS ---
XR chest 2V 12/09/2023 09:27 Indication: Shortness of breath. Procedure: 2 view chest Comparison: Comparison to multiple prior studies sequentially, with oldest reviewed study dated 05/2023. Findings: Small right pleural effusion. Right basilar atelectasis. Severe thoracic spondylosis. Wedge compression deformities of the lower thoracic spine appear chronic. Shallow inspiration with crowdin g of the pulmonary vasculature. Impression: 1: Small right pleural effusion with right basilar compressive atelectasis. Reviewed, dictated and finalized at location A. REPAIRER Impression: 1: Small right pleural effusion with right basilar compressive atelectasis.
--- NOTE | ~2023-12-05 | XR_ITS ---
XR chest 1V portable 12/05/2023 14:48 Indication: Shortness of breath and cough Procedure: AP portable chest Comparison: Comparison to multiple prior studies sequentially, with oldest reviewed study dated 12/03. Findings: Stable cardiomediastinal silhouette. Elevated right diaphragm. Small right pleural effusion . Right basilar atelectasis/scarring. No edema or pneumothorax. No acute osseous abnormality. Impression: 1: Chronic elevation the right diaphragm with underlying compressive atelectasis/scarring. Possible s mall right effusion. Reviewed, dictated and finalized at location L. FIELD TECHNICIAN Impression: 1: Chronic elevation the right diaphragm with underlying compressive atelectasi s/scarring. Possible small right effusion.
--- NOTE | 2023-12-05 14:22 | ECG_ITS ---
Measurements Intervals [place] Rate: 102 P: 40 CO: 151 QRS: -11 QRSD: 86 T: 35 QT: 338 QTc: 441 Interpretive Statements SINUS TACHYCARDIA CONSIDER ANTERIOR INFARCT, AGE INDETERMINATE INFERIOR INFARCT, AGE INDETERMINATE BASELINE ARTIFACT- I, II, III, AVR, AVL, AVF, V1-V6 ABNORMAL ECG COMPARED TO ECG 10/23/2023 20:29:05 SINUS TACHYCARDIA NOW PRESENT Electronically Signed On 12-05-2023 15:04:33 ENVIRONMENTAL SCIENCE TECHNICIAN by Jeronimo Snow D.O.
--- NOTE | 2023-12-05 14:33 | ED.GENADULT ---
HPI - General Adult General Chief complaint: Shortness of Breath/Dyspnea Stated complaint: COPD exacerbation/AMS Time Seen by Provider: 12/05/23 14:31 History of Present Illness HPI narrative: 67-year-old male with history of COPD on 4 L of oxygen by nasal cannula at all times presenting to the emergency department for evaluation of worsening shortness of breath. Patient does report hospitalization for COPD proximally 2 weeks ago. Patient is a smoker does continue to smoke. Patient states he has only male smoke approximately 1 cigarette today. Patient states he does have a history of cardiac stent but denies any atherosclerosis. Patient does have history of congestive heart failure and does take multiple diuretics. Patient states he has not missed his water pills but states he has had increased lower extremity edema over the last few days. Related Data Home Medications Medication Instructions Recorded Confirmed aspirin 81 mg tablet,delayed 81 mg PO DAILY 10/17/19 10/24/23 release (Adult Aspirin Regimen) atorvastatin 20 mg tablet 20 mg PO DAILY 10/17/19 10/24/23 oxycodone-acetaminophen 10 mg-325 1 tablet PO TID PRN Pain (Scale 10/17/19 10/24/23 mg tablet (Percocet) Score 4-6) albuterol sulfate 90 mcg/actuation 2 puff inhalation TID PRN 01/28/21 10/24/23 aerosol inhaler Shortness Of Breath aripiprazole 2 mg tablet 2 mg PO DAILY 01/28/21 10/24/23 acetaminophen 300 mg-codeine 60 mg 1 tablet PO DAILY PRN Pain 05/09/22 10/24/23 tablet carvedilol 25 mg tablet (Coreg) 25 mg PO BID 05/09/22 10/24/23 lisinopril 10 mg tablet 10 mg PO DAILY 11/30/22 10/24/23 lidocaine 5 % topical patch 1 patch topical DAILY 12/27/22 10/24/23 methotrexate sodium 2.5 mg tablet 15 mg PO WEEKLY 06/20/23 10/24/23 cyclobenzaprine 10 mg tablet 10 mg PO BID 10/24/23 10/24/23 Allergies Allergy/AdvReac Type Severity Reaction Status Date / Time procaine Allergy Unknown HEART Verified 12/05/23 14:37 PROBLEMS vancomycin Allergy Unknown Rash Verified 12/05/23 14:37 Review of Systems Review of Systems: All systems reviewed & are unremarkable except as noted in HPI and below PMFSH Past Medical History Medical History (Updated 12/05/23 @ 19:06 by Luis Carlos Knowles MD) Atherosclerosis of aorta Bipolar 1 disorder Cardiac aneurysm Patient states it is nonoperable. Chronic anemia Chronic back pain Chronic obstructive pulmonary disease Chronic respiratory failure with hypoxia and hypercapnia Congestive heart failure Coronary artery disease Depression Hyperlipidemia Hypertension Obstructive sleep apnea Paroxysmal atrial fibrillation Polyosteoarthritis, unspecified Psoriatic arthritis Tobacco abuse Surgical History Surgical History History of ankle surgery (1989) History of appendectomy (1986) History of coronary artery stent placement 1 stent in 2004. History of hammertoe correction (11/2017) History of left hip replacement (10/04/19) History of nasal septoplasty (1969) History of vasectomy (2004) Family History Family History Father COPD (chronic obstructive pulmonary disease) Mother Cancer Social History Social History (Updated 09/21/23 @ 16:01 by Patsy Gill MA) Social History: Surrogate medical decision maker: Isatu Plascencia, spouse. Code status: Full code. Smoking packs per day: 1 Smoking cigarettes per day: 20.0 Years smoked: 45 Smoking pack-years: 45.00 Smoking status: Current every day smoker Tobacco type: cigarettes Second hand tobacco smoke exposure: Yes Alcohol intake: former Alcohol use details: 1 or 2 every 6 months Substance use: never Substance use type: does not use Do You Feel Safe in your Home?: Yes Lack of Transportation: No Lack of Food: Never True Current Housing: I Have Housing Concerned About Future Housing: No Difficulty Paying Gas/Electric Bills:
[2023-12-05] MEDS: IPRATROPIUM BR 0.02% INH SOLN 0.5 MG/2.5 ML VIAL 1 MG INHALATION (14:49)
[2023-12-05] MEDS: ALBUTEROL SULFATE NEB 2.5 MG/3 ML INH 10 MG INHALATION (14:49)
[2023-12-05] MEDS: methylPREDNISolone SOD SUCC 125 MG VIAL IV PUSH (14:50)
[2023-12-05 14:51] LABS: Basophils Percent Auto 0.2 % (0.2-1.2); Eosinophils Percent Auto 0.2 % (0-4.4); Hematocrit 39.5 % (42.0-52.0); Hemoglobin 12.1 g/dL (14.0-18.0); Immature Granulocyte Percent A 1.3 % (0-0.5); Mean Corpuscular HGB Conc 30.6 g/dl (32-36); Mean Corpuscular Hemoglobin 30.1 pg (26-34); Mean Corpuscular Volume 98.3 fl (80-100); Mean Platelet Volume 9.7 fl (7.4-10.4); Monocytes Absolute Auto 0.6 K/mm3 (0.1-0.6); Monocytes Percent Auto 3.8 % (2.6-8.5); Neutrophils Absolute Auto 14.3 K/mm3 (1.3-6.7); Neutrophils Percent Auto 89.5 % (45.5-73.1); Platelet Count Result 302 k/mm3 (150-375); Red Blood Count 4.02 M/mm3 (4.6-6.20); Red Cell Distribution Width 14.6 % (11.5-14.5)
[2023-12-05 15:08] LABS: Alveolar/Arterial O2 Gradient 123.8 mmHg; Base Excess ABG 8.4 mEq/l (+/-2.0); Carboxyhemoglobin 1.4 % THb (0-2.0); Fractional Inspired Oxygen 40 %; HCO3 ABG 34.8 mEq/l (22.0-26.0); Methemoglobin ABG 0.2 %THb (0-1.5); Oxygen Content ABG 17.4 %vol (16.0-22.0); Oxygen Saturation ABG 97.3 % (95.0-100.0); Oxyhemoglobin 95.5 % THb (90.0-100.0); PCO2 ABG 55.7 mmHg (35.0-45.0); PO2 ABG 97.3 mmHg (80.0-100.0); PO2 FiO2 Ratio Arterial Blood 2.43 %; Reduced Hemoglobin 2.9 %THb (0-5.0); Total Hemoglobin 12.9 g/dL (12.0-18.0); pH ABG 7.413 (7.350-7.450)
[2023-12-05 15:09] LABS: Device NON-INVASIVE VENT; Modified Allen's Test Pass; Non-Invasive Expiratory Pressure 7 CMH2O; Non-Invasive Inspiratory Pressure 14 CMH2O; Non-Invasive Vent Rate 18 /MIN; Site Drawn LEFT RADIAL
[2023-12-05 15:16] LABS: Alanine Aminotransferase 49 U/L (6-50); Alkaline Phosphatase 105 U/L (38-126); Anion Gap 2 mmol/L (8-16); Aspartate Amino Transferase 50 U/L (17-59); Bilirubin,Total 0.8 mg/dL (0.2-1.3); Blood Urea Nitrogen 13 mg/dL (9-20); Carbon Dioxide 39 mmol/L (22-30); Chloride 91 mmol/L (98-107); Estimated CRCL calculation 85 ml/min; Estimated Glomerular Filt Rate > 60; Glucose 161 mg/dL (65-110); Potassium 4.6 mmol/L (3.4-5.0); Sodium 132 mmol/L (137-145)
[2023-12-05 15:19] LABS: CRP 5.6 mg/dL (<1.0)
[2023-12-05 15:21] LABS: Procalcitonin 0.1 ng/mL
[2023-12-05 15:27] LABS: Influenza A QL RT-PCR Negative (Negative); Influenza B QL RT-PCR Negative (Negative); RSV RNA, RT-PCR Negative (Negative); SARS-CoV-2 RNA PCR Negative (Negative)
[2023-12-05 15:48] LABS: NT Pro B Type Natriuretic Pept 173 pg/mL (19.9-100)
[2023-12-05] MEDS: AZITHROMYCIN 500 MG/NS 250 ML 500 MG/250 ML BAG 250 MG IVPB (18:10)
--- NOTE | 2023-12-05 19:15 | PC.NURSE ---
Assumed care of pt from Regi VERONICA at this time.
[2023-12-05] MEDS: IPRATROPIUM 0.5 MG/ALBUTEROL SULFATE 2.5 MG AMPUL.NEB 3 ML INHALATION (20:45)
--- NOTE | 2023-12-05 20:55 | ADMGEN ---
This patient, Israel Plascencia Sr., was admitted to IMU Room 211-01. Patient/family oriented to hospital policies and general routines including ID bracelet, bed and alarms, visiting hours, pain management, procedures, bathroom and other care routines, personal items, smoking policy, room service/diet, and visiting hours. Information on how to activate the Rapid Response Team has been discussed. Patient/Family are encouraged to report perceived risks to care and to ask questions if they do not understand what they are told or what they should do.
--- NOTE | 2023-12-05 21:13 | PM.IMHP ---
H&P: HPI History of Present Illness Date/Time: 12/05/23 21:45 Chief Complaint: Shortness of breath. Narrative: This is a 67-year-old male smoker with chronic hypoxic and hypercarbic respiratory failure on 4 L nasal cannula and trilogy unit at nighttime, chronic obstructive pulmonary disease, coronary artery disease, paroxysmal atrial fibrillation, hypertension, and history of DVT who presented to the emergency department via private vehicle from home for evaluation of shortness of breath. The patient provides the following history. He was admitted to the hospital about 1 month ago with COPD exacerbation and he reports feeling back to baseline on discharge. The last several days or so he has started to feel poorly with an increasing cough productive of yellow sputum, diffuse wheezing, progressive shortness of breath, and occasional chest tightness with increased work of breathing. He is on 10 mg prednisone daily and states compliance with his nebulizers and inhalers. He has no sick contacts to his knowledge. He denies fever, chills, sweats, exertional chest pain, pleuritic pain, nausea, vomiting, diarrhea, and significant lower extremity swelling. He was in respiratory distress on arrival to the ED and was started on BiPAP with improvement in work of breathing. ABG did not show any significant changes from his baseline. Chest x-ray showed no acute findings. He received a nebulizer treatment and IV steroids and is being admitted in this setting for further treatment of COPD exacerbation. Review of Systems Review of Systems: Twelve systems were reviewed and are negative except for as per HPI. [facility] Past Medical History Medical History Atherosclerosis of aorta Bipolar 1 disorder Cardiac aneurysm Patient states it is nonoperable. Chronic anemia Chronic back pain Chronic obstructive pulmonary disease Chronic respiratory failure with hypoxia and hypercapnia Congestive heart failure Coronary artery disease Depression Hyperlipidemia Hypertension Obstructive sleep apnea Paroxysmal atrial fibrillation Polyosteoarthritis, unspecified Psoriatic arthritis Tobacco abuse Surgical History Surgical History History of ankle surgery (1989) History of appendectomy (1986) History of coronary artery stent placement 1 stent in 2004. History of hammertoe correction (11/2017) History of left hip replacement (10/04/19) History of nasal septoplasty (1969) History of vasectomy (2004) Family History Family History Father COPD (chronic obstructive pulmonary disease) Mother Cancer Social History Social History Social History: Surrogate medical decision maker: Isatu Plascencia, spouse. Code status: Full code. Smoking packs per day: 1 Smoking cigarettes per day: 20.0 Years smoked: 50 Smoking pack-years: 50.00 Smoking status: Current every day smoker Tobacco type: cigarettes Second hand tobacco smoke exposure: No Alcohol intake: former Drinks per week: 1 Alcohol use details: 1 or 2 every 6 months Substance use: never Substance use type: does not use Do You Feel Safe in your Home?: Yes Lack of Transportation: YES Lack of Food: Never True Current Housing: I Have Housing Concerned About Future Housing: No Difficulty Paying Gas/Electric Bills: No Difficulty Paying for Meds: No Currently Unemployed: No Education: High School Diploma/GED Difficulty w/ Childcare or Family Care: No Living arrangements: with family Additional living arrangements comments: Lives with spouse in [place]. 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 Spiritual care concerns: No Meds Home Medications and Allergies Home Medications
[2023-12-05] MEDS: methylPREDNISolone SOD SUCC 125 MG VIAL 60 MG IV PUSH ×2 (22:36→23:41)
[2023-12-06] VITALS (31 sets, daily range): BP systolic 98–139; BP diastolic 62–90; PULSE 84–117; RESP 18–24; TEMP 35.6–36.7; O2SAT 93–100
[2023-12-06] MEDS: IPRATROPIUM 0.5 MG/ALBUTEROL SULFATE 2.5 MG AMPUL.NEB 3 ML INHALATION ×4 (01:11→20:08)
[2023-12-06] MEDS: HYDROcodone/acetaminophen (*CRX) 5-325 MG TABLET 1 TAB PO ×2 (05:07→20:43)
[2023-12-06] MEDS: methylPREDNISolone SOD SUCC 125 MG VIAL 60 MG IV PUSH ×3 (05:07→17:05)
[2023-12-06] MEDS: ARIPiprazole 2 MG TABLET PO (08:36)
[2023-12-06] MEDS: LIDOCAINE 5% PATCH 1 PATCH TOPICAL (08:37)
[2023-12-06] MEDS: carvediloL 25 MG TABLET PO ×2 (08:37→20:43)
[2023-12-06] MEDS: ENOXAPARIN 40 MG/0.4 ML SYRINGE SUB-Q (08:37)
[2023-12-06] MEDS: SPIRONOLACTONE 25 MG TABLET PO (08:37)
[2023-12-06] MEDS: CYCLOBENZAPRINE HCL 10 MG TABLET PO ×2 (08:37→17:06)
[2023-12-06] MEDS: ATORVASTATIN 20 MG TABLET PO (08:37)
[2023-12-06] MEDS: FUROSEMIDE 40 MG TABLET PO (08:37)
[2023-12-06] MEDS: VENLAFAXINE HCL XR 75 MG CAP.ER.24H 225 MG PO (08:37)
[2023-12-06] MEDS: ASPIRIN 81 MG ENTERIC TABLET PO (08:37)
[2023-12-06] MEDS: guaiFENesin 12 HR 600 MG TABCR PO ×2 (08:38→20:43)
--- NOTE | 2023-12-06 15:29 | PM.IMPN ---
Progress Note: A&P Assessment and Plan (1) Acute on chronic hypoxic respiratory failure: Code(s): J96.21 - Acute and chronic respiratory failure with hypoxia Status: Acute (2) Acute exacerbation of chronic obstructive pulmonary disease: Code(s): J44.1 - Chronic obstructive pulmonary disease with (acute) exacerbation Status: Acute Assessment and Plan: Steroids, antibiotics, BiPAP, wean oxygen (3) Hypertension: Code(s): I10 - Essential (primary) hypertension Status: Acute Assessment and Plan: Resume Carvedilol (4) Obstructive sleep apnea: Code(s): G47.33 - Obstructive sleep apnea (adult) (pediatric) Status: Acute Assessment and Plan: nightly CPAP (5) Tobacco abuse: Code(s): Z72.0 - Tobacco use Status: Acute Assessment and Plan: Cessation counseling, 3 minutes (6) Paroxysmal atrial fibrillation: Code(s): I48.0 - Paroxysmal atrial fibrillation Status: Acute Assessment and Plan: Resume Carvedilol (7) Bipolar disorder, currently in remission, most recent episode unspecified: Code(s): F31.70 - Bipolar disorder, currently in remission, most recent episode unspecified Status: Acute Assessment and Plan: Resume Aripripazole, Venlafaxine (8) Hyperlipidemia: Code(s): E78.5 - Hyperlipidemia, unspecified Status: Chronic Assessment and Plan: Resume Statin Plan The patient presented to the emergency department for evaluation of increasing shortness of breath, wheezing, and cough over the last several days as detailed in HPI. Labs, imaging, EKG, and all reports were personally reviewed. He was placed on BiPAP on arrival due to work of breathing with improvement. ABG did not demonstrate any acute changes from baseline. He is on a trilogy unit at home and may bring that in to use at nighttime. Wean BiPAP as tolerated. Clinically he has a COPD exacerbation, likely due to ongoing smoking although he tells me is only having 1 cigarette a day. He has been started on antibiotics due to increasing cough and purulent sputum and due to the fact that he is immunocompromised. Continue scheduled methylprednisolone and nebulizer treatments. Attempt sputum for culture. Blood pressures were reviewed and they are stable. He is currently in a sinus rhythm and occasional sinus tachycardia. Smoking cessation is imperative and was discussed. He declines the need for nicotine patch. His home medications will be reviewed and resumed as appropriate. Findings and treatment plan were discussed with the patient. Time Spent With Patient Time with patient: 25 - 35 minutes Subjective Date/time seen: 12/06/23 15:29 Interval history: Seen and examined; asleep and tired-looking not in painful or respiratory distress Review of Systems Review of Systems: Twelve systems were reviewed and are negative except for as per HPI. All systems reviewed & are unremarkable except as noted in HPI and below Constitutional: Constitutional: Reports fatigue Eyes: Eyes: Reports no additional eye complaints ENT: Reports system reviewed and no additional complaints, except as documented Cardiovascular: Cardiovascular: Denies leg edema Respiratory: Respiratory: Reports dyspnea and Reports dyspnea on exertion Gastrointestinal: Gastrointestinal: Reports no additional gastrointestinal complaints Genitourinary: Genitourinary: Denies flank pain, Denies urinary frequency and Denies urinary hesitancy Musculoskeletal: Musculoskeletal: Reports no additional musculoskeletal complaints Integumentary/Breasts: Skin/Breast: Reports dry skin Neurologic: Denies Abnormal speech present, Denies confusion and Denies headache(s) Psychiatric: Psychiatric: Reports no additional psychiatric complaints Exam Narrative: General:?Chronically ill-appearing gentleman sitting up in bed on BiPAP in no acute distress. Asking to be taken off
[2023-12-06 15:59] LABS: Fractional Inspired Oxygen 28 %; HCO3 VBG 31.7 mEq/l (24.0-30.0); PCO2 VBG 52.3 mmHg (42.0-48.0)
[2023-12-06 16:00] LABS: Device NASAL CANNULA; PO2 VBG < 27.0 mmHg (35.0-45.0)
[2023-12-06] MEDS: AZITHROMYCIN 500 MG/NS 250 ML 500 MG/250 ML BAG 250 MG IVPB (17:46)
[2023-12-06] MEDS: GABAPENTIN 300 MG CAPSULE PO (20:43)
[2023-12-07] VITALS (25 sets, daily range): BP systolic 134–156; BP diastolic 70–91; PULSE 80–117; RESP 18–22; TEMP 35.8–36.9; O2SAT 94–100
[2023-12-07] MEDS: HYDROcodone/acetaminophen (*CRX) 5-325 MG TABLET 1 TAB PO ×4 (00:41→20:00)
[2023-12-07] MEDS: methylPREDNISolone SOD SUCC 125 MG VIAL 60 MG IV PUSH ×4 (00:42→18:16)
[2023-12-07 05:14] LABS: Basophils Percent Auto 0.1 % (0.2-1.2); Hematocrit 32.6 % (42.0-52.0); Hemoglobin 10.2 g/dL (14.0-18.0); Immature Granulocyte Absolute 0.15 K/mm3 (0.00-0.031); Immature Granulocyte Percent A 0.9 % (0-0.5); Lymphocytes Absolute Auto 0.69 K/mm3 (0.9-3.2); Lymphocytes Percent Auto 4.1 % (18.3-44.2); Mean Corpuscular HGB Conc 31.3 g/dl (32-36); Mean Corpuscular Hemoglobin 30.3 pg (26-34); Mean Corpuscular Volume 96.7 fl (80-100); Mean Platelet Volume 9.7 fl (7.4-10.4); Monocytes Absolute Auto 0.4 K/mm3 (0.1-0.6); Monocytes Percent Auto 2.1 % (2.6-8.5); Neutrophils Absolute Auto 15.4 K/mm3 (1.3-6.7); Neutrophils Percent Auto 92.8 % (45.5-73.1); Platelet Count Result 287 k/mm3 (150-375); Red Blood Count 3.37 M/mm3 (4.6-6.20); Red Cell Distribution Width 14.4 % (11.5-14.5); White Blood Count 16.7 K/mm3 (4.5-10.0)
[2023-12-07 05:38] LABS: Alanine Aminotransferase 58 U/L (6-50); Albumin Level 3.5 g/dL (3.5-5.1); Alkaline Phosphatase 90 U/L (38-126); Anion Gap 2 mmol/L (8-16); Aspartate Amino Transferase 57 U/L (17-59); Bilirubin,Total 0.4 mg/dL (0.2-1.3); Blood Urea Nitrogen 25 mg/dL (9-20); Calcium 8.5 mg/dL (8.4-10.2); Carbon Dioxide 38 mmol/L (22-30); Chloride 90 mmol/L (98-107); Estimated CRCL calculation 75 ml/min; Estimated Glomerular Filt Rate > 60; Glucose 148 mg/dL (65-110); Potassium 4.2 mmol/L (3.4-5.0); Sodium 130 mmol/L (137-145)
[2023-12-07 06:02] LABS: Hypochromasia 2+ (NORMAL); Platelet Estimate Adequate (Adequate); Schistocytes None Seen (NORMAL); Stomatocytes 1+ (NORMAL)
[2023-12-07] MEDS: IPRATROPIUM 0.5 MG/ALBUTEROL SULFATE 2.5 MG AMPUL.NEB 3 ML INHALATION ×3 (07:24→20:14)
[2023-12-07] MEDS: FUROSEMIDE 40 MG TABLET PO (08:54)
[2023-12-07] MEDS: ARIPiprazole 2 MG TABLET PO (08:55)
[2023-12-07] MEDS: carvediloL 25 MG TABLET PO ×2 (08:55→20:43)
[2023-12-07] MEDS: ASPIRIN 81 MG ENTERIC TABLET PO (08:55)
[2023-12-07] MEDS: CYCLOBENZAPRINE HCL 10 MG TABLET PO ×2 (08:55→16:38)
[2023-12-07] MEDS: SPIRONOLACTONE 25 MG TABLET PO (08:55)
[2023-12-07] MEDS: VENLAFAXINE HCL XR 75 MG CAP.ER.24H 225 MG PO (08:55)
[2023-12-07] MEDS: ATORVASTATIN 20 MG TABLET PO (08:56)
[2023-12-07] MEDS: ENOXAPARIN 40 MG/0.4 ML SYRINGE SUB-Q (08:58)
[2023-12-07] MEDS: LIDOCAINE 5% PATCH 1 PATCH TOPICAL (08:58)
[2023-12-07] MEDS: oxyCODONE/ACETAMINOPHEN (*CRX) 10-325 MG TABLET 1 TAB PO ×3 (09:36→20:45)
[2023-12-07] MEDS: guaiFENesin 12 HR 600 MG TABCR PO ×2 (09:38→20:44)
--- NOTE | 2023-12-07 15:27 | PM.IMPN ---
Progress Note: A&P Assessment and Plan (1) Acute on chronic hypoxic respiratory failure: Code(s): J96.21 - Acute and chronic respiratory failure with hypoxia Status: Acute Assessment and Plan: Azithromycin, Ceftriaxone, Oxygen Steroids (2) Acute exacerbation of chronic obstructive pulmonary disease: Code(s): J44.1 - Chronic obstructive pulmonary disease with (acute) exacerbation Status: Acute Assessment and Plan: Steroids, antibiotics, BiPAP, wean oxygen (3) Hypertension: Code(s): I10 - Essential (primary) hypertension Status: Acute Assessment and Plan: Resume Carvedilol (4) Obstructive sleep apnea: Code(s): G47.33 - Obstructive sleep apnea (adult) (pediatric) Status: Acute Assessment and Plan: nightly CPAP (5) Tobacco abuse: Code(s): Z72.0 - Tobacco use Status: Acute Assessment and Plan: Cessation counseling, 3 minutes (6) Paroxysmal atrial fibrillation: Code(s): I48.0 - Paroxysmal atrial fibrillation Status: Acute Assessment and Plan: Resume Carvedilol (7) Bipolar disorder, currently in remission, most recent episode unspecified: Code(s): F31.70 - Bipolar disorder, currently in remission, most recent episode unspecified Status: Acute Assessment and Plan: Resume Aripripazole, Venlafaxine (8) Hyperlipidemia: Code(s): E78.5 - Hyperlipidemia, unspecified Status: Chronic Assessment and Plan: Resume Statin Plan The patient presented to the emergency department for evaluation of increasing shortness of breath, wheezing, and cough over the last several days as detailed in HPI. Labs, imaging, EKG, and all reports were personally reviewed. He was placed on BiPAP on arrival due to work of breathing with improvement. ABG did not demonstrate any acute changes from baseline. He is on a trilogy unit at home and may bring that in to use at nighttime. Wean BiPAP as tolerated. Clinically he has a COPD exacerbation, likely due to ongoing smoking although he tells me is only having 1 cigarette a day. He has been started on antibiotics due to increasing cough and purulent sputum and due to the fact that he is immunocompromised. Continue scheduled methylprednisolone and nebulizer treatments. Attempt sputum for culture. Blood pressures were reviewed and they are stable. He is currently in a sinus rhythm and occasional sinus tachycardia. Smoking cessation is imperative and was discussed. He declines the need for nicotine patch. His home medications will be reviewed and resumed as appropriate. Findings and treatment plan were discussed with the patient. Time Spent With Patient Time with patient: 25 - 35 minutes Subjective Date/time seen: 12/07/23 15:27 Interval history: Seen and examined; asleep and tired-looking not in painful distress Review of Systems Review of Systems: Twelve systems were reviewed and are negative except for as per HPI. All systems reviewed & are unremarkable except as noted in HPI and below Constitutional: Constitutional: Reports fatigue and Denies headache(s) Eyes: Eyes: Reports no additional eye complaints ENT: Reports system reviewed and no additional complaints, except as documented and Denies headache(s) Cardiovascular: Cardiovascular: Denies leg edema, Reports dyspnea and Reports dyspnea on exertion Respiratory: Respiratory: Reports dyspnea and Reports dyspnea on exertion Gastrointestinal: Gastrointestinal: Reports no additional gastrointestinal complaints Genitourinary: Genitourinary: Denies flank pain, Denies urinary frequency and Denies urinary hesitancy Musculoskeletal: Musculoskeletal: Reports no additional musculoskeletal complaints Integumentary/Breasts: Skin/Breast: Reports dry skin Neurologic: Denies Abnormal speech present, Denies confusion and Denies headache(s) Psychiatric: Psychiatric: Reports no additional psychiatric
[2023-12-07] MEDS: AZITHROMYCIN 500 MG/NS 250 ML 500 MG/250 ML BAG 250 MG IVPB (16:38)
[2023-12-07] MEDS: GABAPENTIN 300 MG CAPSULE PO (20:44)
[2023-12-07] MEDS: MELATONIN 5 MG TABLET PO (20:45)
[2023-12-08] VITALS (28 sets, daily range): BP systolic 126–173; BP diastolic 61–99; PULSE 65–115; RESP 18–30; TEMP 35.8–36.6; O2SAT 93–100
[2023-12-08] MEDS: methylPREDNISolone SOD SUCC 125 MG VIAL 60 MG IV PUSH ×4 (01:10→17:22)
[2023-12-08] MEDS: IPRATROPIUM 0.5 MG/ALBUTEROL SULFATE 2.5 MG AMPUL.NEB 3 ML INHALATION ×4 (02:10→20:46)
[2023-12-08 05:03] LABS: Basophils Percent Auto 0.1 % (0.2-1.2); Hematocrit 31.4 % (42.0-52.0); Hemoglobin 9.8 g/dL (14.0-18.0); Immature Granulocyte Percent A 0.8 % (0-0.5); Lymphocytes Absolute Auto 0.49 K/mm3 (0.9-3.2); Lymphocytes Percent Auto 4.1 % (18.3-44.2); Mean Corpuscular HGB Conc 31.2 g/dl (32-36); Mean Corpuscular Hemoglobin 30.4 pg (26-34); Mean Corpuscular Volume 97.5 fl (80-100); Mean Platelet Volume 9.8 fl (7.4-10.4); Monocytes Absolute Auto 0.4 K/mm3 (0.1-0.6); Monocytes Percent Auto 3.6 % (2.6-8.5); Neutrophils Absolute Auto 10.8 K/mm3 (1.3-6.7); Neutrophils Percent Auto 91.4 % (45.5-73.1); Platelet Count Result 272 k/mm3 (150-375); Red Blood Count 3.22 M/mm3 (4.6-6.20); Red Cell Distribution Width 14.3 % (11.5-14.5); White Blood Count 11.8 K/mm3 (4.5-10.0)
[2023-12-08 05:23] LABS: Alanine Aminotransferase 58 U/L (6-50); Albumin Level 3.3 g/dL (3.5-5.1); Alkaline Phosphatase 81 U/L (38-126); Anion Gap 6 mmol/L (8-16); Aspartate Amino Transferase 46 U/L (17-59); Bilirubin,Total 0.4 mg/dL (0.2-1.3); Blood Urea Nitrogen 30 mg/dL (9-20); Calcium 8.5 mg/dL (8.4-10.2); Carbon Dioxide 34 mmol/L (22-30); Chloride 90 mmol/L (98-107); Estimated CRCL calculation 68 ml/min; Estimated Glomerular Filt Rate > 60; Glucose 152 mg/dL (65-110); Potassium 4.6 mmol/L (3.4-5.0); Sodium 130 mmol/L (137-145)
[2023-12-08 05:32] LABS: Platelet Estimate Adequate (Adequate)
[2023-12-08 05:33] LABS: Hypochromasia 1+ (NORMAL)
[2023-12-08 05:36] LABS: Anisocytosis 1+ (NORMAL); Microcytosis 1+ (NORMAL); Poikilocytosis 1+ (NORMAL); Schistocytes None Seen (NORMAL); Stomatocytes 1+ (NORMAL)
[2023-12-08] MEDS: oxyCODONE/ACETAMINOPHEN (*CRX) 10-325 MG TABLET 1 TAB PO ×4 (05:50→20:55)
[2023-12-08] MEDS: ENOXAPARIN 40 MG/0.4 ML SYRINGE SUB-Q (08:03)
[2023-12-08] MEDS: VENLAFAXINE HCL XR 75 MG CAP.ER.24H 225 MG PO (08:03)
[2023-12-08] MEDS: guaiFENesin 12 HR 600 MG TABCR PO ×2 (08:03→20:05)
[2023-12-08] MEDS: carvediloL 25 MG TABLET PO ×2 (08:04→20:05)
[2023-12-08] MEDS: ATORVASTATIN 20 MG TABLET PO (08:04)
[2023-12-08] MEDS: ASPIRIN 81 MG ENTERIC TABLET PO (08:04)
[2023-12-08] MEDS: FUROSEMIDE 40 MG TABLET PO (08:04)
[2023-12-08] MEDS: SPIRONOLACTONE 25 MG TABLET PO (08:04)
[2023-12-08] MEDS: ARIPiprazole 2 MG TABLET PO (08:05)
[2023-12-08] MEDS: CYCLOBENZAPRINE HCL 10 MG TABLET PO ×2 (08:05→17:21)
[2023-12-08] MEDS: LIDOCAINE 5% PATCH 1 PATCH TOPICAL (08:05)
--- NOTE | 2023-12-08 15:34 | PM.IMPN ---
Progress Note: A&P Assessment and Plan (1) Acute on chronic hypoxic respiratory failure: Code(s): J96.21 - Acute and chronic respiratory failure with hypoxia Status: Acute Assessment and Plan: Azithromycin, Ceftriaxone, Oxygen Steroids 12/08/23: continue above antibiotics; may switch to PO over the weekend (2) Acute exacerbation of chronic obstructive pulmonary disease: Code(s): J44.1 - Chronic obstructive pulmonary disease with (acute) exacerbation Status: Acute Assessment and Plan: Steroids, antibiotics, BiPAP, wean oxygen 12/08/23: Wean oxygen; PEP, anti-tussives (3) Hypertension: Code(s): I10 - Essential (primary) hypertension Status: Acute Assessment and Plan: Resume Carvedilol (4) Obstructive sleep apnea: Code(s): G47.33 - Obstructive sleep apnea (adult) (pediatric) Status: Acute Assessment and Plan: nightly CPAP (5) Tobacco abuse: Code(s): Z72.0 - Tobacco use Status: Acute Assessment and Plan: Cessation counseling, 3 minutes (6) Paroxysmal atrial fibrillation: Code(s): I48.0 - Paroxysmal atrial fibrillation Status: Acute Assessment and Plan: Resume Carvedilol (7) Bipolar disorder, currently in remission, most recent episode unspecified: Code(s): F31.70 - Bipolar disorder, currently in remission, most recent episode unspecified Status: Acute Assessment and Plan: Resume Aripripazole, Venlafaxine (8) Hyperlipidemia: Code(s): E78.5 - Hyperlipidemia, unspecified Status: Chronic Assessment and Plan: Resume Statin Plan The patient presented to the emergency department for evaluation of increasing shortness of breath, wheezing, and cough over the last several days as detailed in HPI. Labs, imaging, EKG, and all reports were personally reviewed. He was placed on BiPAP on arrival due to work of breathing with improvement. ABG did not demonstrate any acute changes from baseline. He is on a trilogy unit at home and may bring that in to use at nighttime. Wean BiPAP as tolerated. Clinically he has a COPD exacerbation, likely due to ongoing smoking although he tells me is only having 1 cigarette a day. He has been started on antibiotics due to increasing cough and purulent sputum and due to the fact that he is immunocompromised. Continue scheduled methylprednisolone and nebulizer treatments. Attempt sputum for culture. Blood pressures were reviewed and they are stable. He is currently in a sinus rhythm and occasional sinus tachycardia. Smoking cessation is imperative and was discussed. He declines the need for nicotine patch. His home medications will be reviewed and resumed as appropriate. Findings and treatment plan were discussed with the patient. Acute and principal conditions 1. COPD exacerbation 2. Acute exacerbation of chronic hypoxic respiratory failure, 6L @ baseline Azithromycin, Ceftriaxone, Solu-medrol, Anti-tussives; supplemental oxygen Chronic and stable conditions. 1. Recurrent severe depression. on Venlafaxine, Aripiprazole 2 Dyslipdemia. on Statin 3. Nicotine dependence. cessation counseling, 3 minutes 4. Chronic pain syndrome. on Cyclobenzaprine, Gabapentin, [place] VTE Prophylaxis. Lovenox Code status. Lap Runner Spent With Patient Time with patient: 25 - 35 minutes Subjective Date/time seen: 12/08/23 15:34 Interval history: Seen and examined; Feels better; denies fresh conerns. Eager to go home to , for whom he is the caregiver. Not in painful distress He is being managed for hypoxic respiratory failure with COPD exacerbation; Review of Systems Review of Systems: Twelve systems were reviewed and are negative except for as per HPI. All systems reviewed & are unremarkable except as noted in HPI and below Constitutional: Constitutional: Reports fatigue and Denies headache(s) Eyes: Eyes: Reports no additional eye complaints EN
[2023-12-08] MEDS: AZITHROMYCIN 500 MG/NS 250 ML 500 MG/250 ML BAG 125 MG IVPB (18:19)
[2023-12-08] MEDS: GABAPENTIN 300 MG CAPSULE PO (20:05)
[2023-12-08] MEDS: MELATONIN 5 MG TABLET PO (20:55)
[2023-12-09] VITALS (23 sets, daily range): BP systolic 140–167; BP diastolic 69–98; PULSE 68–122; RESP 12–29; TEMP 36–36.6; O2SAT 92–100
[2023-12-09] MEDS: methylPREDNISolone SOD SUCC 125 MG VIAL 60 MG IV PUSH ×3 (00:05→14:17)
[2023-12-09] MEDS: IPRATROPIUM 0.5 MG/ALBUTEROL SULFATE 2.5 MG AMPUL.NEB 3 ML INHALATION ×4 (02:15→20:53)
[2023-12-09 06:26] LABS: Basophils Percent Auto 0.1 % (0.2-1.2); Hemoglobin 10.5 g/dL (14.0-18.0); Immature Granulocyte Absolute 0.08 K/mm3 (0.00-0.031); Immature Granulocyte Percent A 0.6 % (0-0.5); Mean Corpuscular HGB Conc 30.9 g/dl (32-36); Mean Corpuscular Hemoglobin 30.4 pg (26-34); Mean Corpuscular Volume 98.6 fl (80-100); Mean Platelet Volume 10.3 fl (7.4-10.4); Monocytes Absolute Auto 0.6 K/mm3 (0.1-0.6); Monocytes Percent Auto 5.1 % (2.6-8.5); Neutrophils Absolute Auto 11.3 K/mm3 (1.3-6.7); Neutrophils Percent Auto 90.2 % (45.5-73.1); Platelet Count Result 289 k/mm3 (150-375); Red Blood Count 3.45 M/mm3 (4.6-6.20); Red Cell Distribution Width 14.5 % (11.5-14.5); White Blood Count 12.5 K/mm3 (4.5-10.0)
[2023-12-09 06:44] LABS: Alanine Aminotransferase 61 U/L (6-50); Albumin Level 3.8 g/dL (3.5-5.1); Alkaline Phosphatase 85 U/L (38-126); Anion Gap 7 mmol/L (8-16); Aspartate Amino Transferase 43 U/L (17-59); Bilirubin,Total 0.3 mg/dL (0.2-1.3); Blood Urea Nitrogen 30 mg/dL (9-20); Calcium 8.6 mg/dL (8.4-10.2); Carbon Dioxide 34 mmol/L (22-30); Chloride 92 mmol/L (98-107); Estimated CRCL calculation 61 ml/min; Estimated Glomerular Filt Rate > 60; Glucose 216 mg/dL (65-110); Potassium 3.9 mmol/L (3.4-5.0); Sodium 133 mmol/L (137-145)
[2023-12-09 07:38] LABS: Anisocytosis 1+ (NORMAL); Hypochromasia 2+ (NORMAL); Microcytosis 1+ (NORMAL); Platelet Estimate Adequate (Adequate); Poikilocytosis 1+ (NORMAL); Schistocytes None Seen (NORMAL); Stomatocytes 1+ (NORMAL)
[2023-12-09] MEDS: ARIPiprazole 2 MG TABLET PO (08:33)
[2023-12-09] MEDS: oxyCODONE/ACETAMINOPHEN (*CRX) 10-325 MG TABLET 1 TAB PO ×2 (08:33→20:48)
[2023-12-09] MEDS: ATORVASTATIN 20 MG TABLET PO (08:33)
[2023-12-09] MEDS: VENLAFAXINE HCL XR 75 MG CAP.ER.24H 225 MG PO (08:34)
[2023-12-09] MEDS: FUROSEMIDE 40 MG TABLET PO (08:34)
[2023-12-09] MEDS: ASPIRIN 81 MG ENTERIC TABLET PO (08:34)
[2023-12-09] MEDS: CYCLOBENZAPRINE HCL 10 MG TABLET PO ×2 (08:34→17:38)
[2023-12-09] MEDS: guaiFENesin 12 HR 600 MG TABCR PO ×2 (08:34→20:45)
[2023-12-09] MEDS: SPIRONOLACTONE 25 MG TABLET PO (08:34)
[2023-12-09] MEDS: carvediloL 25 MG TABLET PO ×2 (08:34→20:45)
[2023-12-09] MEDS: ENOXAPARIN 40 MG/0.4 ML SYRINGE SUB-Q (08:35)
[2023-12-09] MEDS: HYDROcodone/acetaminophen (*CRX) 5-325 MG TABLET 1 TAB PO (14:16)
--- NOTE | 2023-12-09 16:14 | PM.IMPN ---
Progress Note: A&P Assessment and Plan (1) Acute on chronic hypoxic respiratory failure: Code(s): J96.21 - Acute and chronic respiratory failure with hypoxia Status: Acute Assessment and Plan: Azithromycin, Ceftriaxone, Oxygen Steroids 12/08/23: continue above antibiotics; may switch to PO over the weekend (2) Acute exacerbation of chronic obstructive pulmonary disease: Code(s): J44.1 - Chronic obstructive pulmonary disease with (acute) exacerbation Status: Acute Assessment and Plan: Steroids, antibiotics, BiPAP, wean oxygen 12/08/23: Wean oxygen; PEP, anti-tussives (3) Hypertension: Code(s): I10 - Essential (primary) hypertension Status: Acute Assessment and Plan: Resume Carvedilol (4) Obstructive sleep apnea: Code(s): G47.33 - Obstructive sleep apnea (adult) (pediatric) Status: Acute Assessment and Plan: nightly CPAP (5) Tobacco abuse: Code(s): Z72.0 - Tobacco use Status: Acute Assessment and Plan: Cessation counseling, 3 minutes (6) Paroxysmal atrial fibrillation: Code(s): I48.0 - Paroxysmal atrial fibrillation Status: Acute Assessment and Plan: Resume Carvedilol (7) Bipolar disorder, currently in remission, most recent episode unspecified: Code(s): F31.70 - Bipolar disorder, currently in remission, most recent episode unspecified Status: Acute Assessment and Plan: Resume Aripripazole, Venlafaxine (8) Hyperlipidemia: Code(s): E78.5 - Hyperlipidemia, unspecified Status: Chronic Assessment and Plan: Resume Statin Plan The patient presented to the emergency department for evaluation of increasing shortness of breath, wheezing, and cough over the last several days as detailed in HPI. Labs, imaging, EKG, and all reports were personally reviewed. He was placed on BiPAP on arrival due to work of breathing with improvement. ABG did not demonstrate any acute changes from baseline. He is on a trilogy unit at home and may bring that in to use at nighttime. Wean BiPAP as tolerated. Clinically he has a COPD exacerbation, likely due to ongoing smoking although he tells me is only having 1 cigarette a day. He has been started on antibiotics due to increasing cough and purulent sputum and due to the fact that he is immunocompromised. Continue scheduled methylprednisolone and nebulizer treatments. Attempt sputum for culture. Blood pressures were reviewed and they are stable. He is currently in a sinus rhythm and occasional sinus tachycardia. Smoking cessation is imperative and was discussed. He declines the need for nicotine patch. His home medications will be reviewed and resumed as appropriate. Findings and treatment plan were discussed with the patient. Acute and principal conditions 1. COPD exacerbation 2. Acute exacerbation of chronic hypoxic respiratory failure, 6L @ baseline ... Slowly being weaned down to 2 liters/minutes. Repeat chest for ordered which ruled out pneumonia. Tapered down on IV Solu-Medrol to 40 mg IV q.8 hrs. Azithromycin, Ceftriaxone, Solu-medrol, Anti-tussives; supplemental oxygen Chronic and stable conditions. 1. Recurrent severe depression. on Venlafaxine, Aripiprazole 2 Dyslipdemia. on Statin 3. Nicotine dependence. cessation counseling, 3 minutes 4. Chronic pain syndrome. on Cyclobenzaprine, Gabapentin, [place] VTE Prophylaxis. Lovenox Code status. Full ? Patient seen and examined at bedside during my morning rounds ? Collaborated with patient's nurse at the bedside in detail and addressed all concerns ? Labs, electrolytes, radiology, investigations and test results reviewed ? Consult/Nursing/Ancilliary notes on the chart reviewed and appreciated ? Spoke with patient/family at the bedside and answered all the questions that they had Repeat labs in a.m. Electrolyte replacement as per protocol. Patient will be monitored very closely on the floor.
[2023-12-09] MEDS: AZITHROMYCIN 500 MG/NS 250 ML 500 MG/250 ML BAG 125 MG IVPB (17:40)
[2023-12-09] MEDS: GABAPENTIN 300 MG CAPSULE PO (20:45)
[2023-12-09] MEDS: methylPREDNISolone SOD SUCC 40 MG VIAL IV PUSH (23:22)
[2023-12-10] VITALS (12 sets, daily range): BP systolic 151–161; BP diastolic 89–97; PULSE 86–105; RESP 16–29; TEMP 35.9–36.1; O2SAT 93–100
[2023-12-10] MEDS: methylPREDNISolone SOD SUCC 40 MG VIAL IV PUSH (05:50)
[2023-12-10 07:23] LABS: Basophils Percent Auto 0.1 % (0.2-1.2); Hematocrit 36.1 % (42.0-52.0); Hemoglobin 10.7 g/dL (14.0-18.0); Immature Granulocyte Absolute 0.14 K/mm3 (0.00-0.031); Lymphocytes Percent Auto 4.2 % (18.3-44.2); Mean Corpuscular HGB Conc 29.6 g/dl (32-36); Mean Corpuscular Hemoglobin 30.1 pg (26-34); Mean Corpuscular Volume 101.4 fl (80-100); Mean Platelet Volume 10.7 fl (7.4-10.4); Monocytes Absolute Auto 0.7 K/mm3 (0.1-0.6); Monocytes Percent Auto 4.8 % (2.6-8.5); Neutrophils Percent Auto 89.9 % (45.5-73.1); Platelet Count Result 269 k/mm3 (150-375); Red Blood Count 3.56 M/mm3 (4.6-6.20); Red Cell Distribution Width 14.4 % (11.5-14.5); White Blood Count 14.4 K/mm3 (4.5-10.0)
[2023-12-10 07:49] LABS: Alanine Aminotransferase 75 U/L (6-50); Albumin Level 3.5 g/dL (3.5-5.1); Alkaline Phosphatase 86 U/L (38-126); Aspartate Amino Transferase 48 U/L (17-59); Bilirubin,Total 0.4 mg/dL (0.2-1.3); Blood Urea Nitrogen 28 mg/dL (9-20); Calcium 8.4 mg/dL (8.4-10.2); Carbon Dioxide > 40 mmol/L (22-30); Chloride 91 mmol/L (98-107); Estimated CRCL calculation 86 ml/min; Estimated Glomerular Filt Rate > 60; Glucose 204 mg/dL (65-110); Magnesium 2.4 mg/dL (1.6-2.3); Phosphorus 2.6 mg/dL (2.5-4.5); Potassium 4.6 mmol/L (3.4-5.0); Sodium 133 mmol/L (137-145)
[2023-12-10] MEDS: ARIPiprazole 2 MG TABLET PO (08:37)
[2023-12-10] MEDS: guaiFENesin 12 HR 600 MG TABCR PO (08:37)
[2023-12-10] MEDS: VENLAFAXINE HCL XR 75 MG CAP.ER.24H 225 MG PO (08:37)
[2023-12-10] MEDS: FUROSEMIDE 40 MG TABLET PO (08:37)
[2023-12-10] MEDS: ENOXAPARIN 40 MG/0.4 ML SYRINGE SUB-Q (08:37)
[2023-12-10] MEDS: carvediloL 25 MG TABLET PO (08:37)
[2023-12-10] MEDS: ATORVASTATIN 20 MG TABLET PO (08:38)
[2023-12-10] MEDS: SPIRONOLACTONE 25 MG TABLET PO (08:38)
[2023-12-10] MEDS: CYCLOBENZAPRINE HCL 10 MG TABLET PO (08:38)
[2023-12-10] MEDS: ASPIRIN 81 MG ENTERIC TABLET PO (08:38)
[2023-12-10] MEDS: oxyCODONE/ACETAMINOPHEN (*CRX) 10-325 MG TABLET 1 TAB PO (08:47)
[2023-12-10] MEDS: IPRATROPIUM 0.5 MG/ALBUTEROL SULFATE 2.5 MG AMPUL.NEB 3 ML INHALATION (09:53)
--- NOTE | 2023-12-10 11:31 | PM.DS ---
DS: Admitting Diagnosis Discharge Date 12/10/2023: Admitting Diagnosis Acute on chronic hypoxic respiratory failure Acute exacerbation of COPD Nicotine dependence DS: Discharge Diagnosis Discharge Diagnosis (1) Acute on chronic hypoxic respiratory failure: Code(s): J96.21 - Acute and chronic respiratory failure with hypoxia Status: Acute (2) Acute exacerbation of chronic obstructive pulmonary disease: Code(s): J44.1 - Chronic obstructive pulmonary disease with (acute) exacerbation Status: Acute (3) Chronic respiratory failure with hypoxia and hypercapnia: Code(s): J96.11 - Chronic respiratory failure with hypoxia; J96.12 - Chronic respiratory failure with hypercapnia Status: Acute (4) Chronic anemia: Code(s): D64.9 - Anemia, unspecified Status: Acute (5) Coronary artery disease: Code(s): I25.10 - Atherosclerotic heart disease of [place] coronary artery without angina pectoris Status: Acute (6) Hypertension: Code(s): I10 - Essential (primary) hypertension Status: Acute (7) Paroxysmal atrial fibrillation: Code(s): I48.0 - Paroxysmal atrial fibrillation Status: Acute (8) Polyosteoarthritis, unspecified: Code(s): M15.9 - Polyosteoarthritis, unspecified Status: Acute (9) Bipolar disorder, currently in remission, most recent episode unspecified: Code(s): F31.70 - Bipolar disorder, currently in remission, most recent episode unspecified Status: Acute (10) Atherosclerosis of aorta: Code(s): I70.0 - Atherosclerosis of aorta Status: Acute (11) Obstructive sleep apnea: Code(s): G47.33 - Obstructive sleep apnea (adult) (pediatric) Status: Acute (12) Chronic back pain: Code(s): M54.9 - Dorsalgia, unspecified; G89.29 - Other chronic pain Status: Acute (13) Tobacco abuse: Code(s): Z72.0 - Tobacco use Status: Acute (14) Psoriatic arthritis: Code(s): L40.50 - Arthropathic psoriasis, unspecified Status: Chronic (15) Hyperlipidemia: Code(s): E78.5 - Hyperlipidemia, unspecified Status: Chronic (16) HTN (hypertension): Code(s): I10 - Essential (primary) hypertension Status: Chronic (17) Oxygen dependent: Code(s): Z99.81 - Dependence on supplemental oxygen Status: Acute DS: Summary Hospital Course Reason for hospitalization: Patient admitted with worsening shortness of breath Hospital Course: H&P: HPI History of Present Illness Date/Time: 12/05/23? 21:45 Chief Complaint: Shortness of breath. Narrative: This is a 67-year-old male smoker with chronic hypoxic and hypercarbic respiratory failure on 4 L nasal cannula and trilogy unit at nighttime, chronic obstructive pulmonary disease, coronary artery disease, paroxysmal atrial fibrillation, hypertension, and history of DVT who presented to the emergency department via private vehicle from home for evaluation of shortness of breath. The patient provides the following history. He was admitted to the hospital about 1 month ago with COPD exacerbation and he reports feeling back to baseline on discharge. The last several days or so he has started to feel poorly with an increasing cough productive of yellow sputum, diffuse wheezing, progressive shortness of breath, and occasional chest tightness with increased work of breathing. He is on 10 mg prednisone daily and states compliance with his nebulizers and inhalers. He has no sick contacts to his knowledge. He denies fever, chills, sweats, exertional chest pain, pleuritic pain, nausea, vomiting, diarrhea, and significant lower extremity swelling. He was in respiratory distress on arrival to the ED and was started on BiPAP with improvement in work of breathing. ABG did not show any significant changes from his baseline. Chest x-ray showed no acute findings. He received a nebulizer treatment and IV steroids and is being admitted in t
--- NOTE | 2023-12-10 11:40 | PC.NURSE ---
Patient at sitting at bedside for morning assessment. IV weeping but still functional. Trio rounds with MD. Home O2 eval reveals no changes from home dose. 97% on 2.5L sitting at bedside. 87% after walking to bathroom on 2.5L. Recovered immediately to 97% after sitting back a bedside on 2.5L. IV removed with catheter intact. Telemetry returned.
[2023-12-10] MEDS: AZITHROMYCIN 250 MG TABLET 500 MG PO (12:02)
== END 2023-12-10 12:10 | disposition home or self-care (01) | DRG 189 ==
LOC: ANHED 14:54 → ANHIMU 17:54 → ANH3MEDSUR 12-08 18:08
PROVIDERS: Admitting Provider Internal Medicine; Emergency Provider Emergency Medicine; PCP Family Medicine; Visit Provider Family Medicine
DX: J96.21 Acute and chronic respiratory failure with hypoxia (principal); J44.1 Chronic obstructive pulmonary disease with (acute) exacerbation; D64.9 Anemia, unspecified; E78.5 Hyperlipidemia, unspecified; F17.210 Nicotine dependence, cigarettes, uncomplicated; F31.70 Bipolar disorder, currently in remission, most recent episode unspecified; G47.33 Obstructive sleep apnea (adult) (pediatric); G89.29 Other chronic pain; I25.10 Atherosclerotic heart disease of native coronary artery without angina pectoris; I11.0 Hypertensive heart disease with heart failure; I50.9 Heart failure, unspecified; I70.0 Atherosclerosis of aorta; I48.0 Paroxysmal atrial fibrillation; J96.12 Chronic respiratory failure with hypercapnia; L40.50 Arthropathic psoriasis, unspecified; M15.9 Polyosteoarthritis, unspecified; M54.9 Dorsalgia, unspecified; Z20.822 Contact with and (suspected) exposure to COVID-19; Z99.81 Dependence on supplemental oxygen; Z86.718 Personal history of other venous thrombosis and embolism; Z99.89 Dependence on other enabling machines and devices; Z95.5 Presence of coronary angioplasty implant and graft; Z79.82 Long term (current) use of aspirin; Z90.49 Acquired absence of other specified parts of digestive tract; Z96.642 Presence of left artificial hip joint
CPT/HCPCS: 36415; 36600; 71045; 71046; 80053; 82375; 82803; 82805; 83050; 83735; 83880; 84100; 84145; 85025; 86140; 87040; 87070; 87205; 87637; 93005; 94002; 94003; 94640; 94667; 94668; 96365; 96367; 96372; 96375; 96376; 97165; 99285; A9270; G0378; J0456; J0696; J1650; J2920; J2930

== ENCOUNTER 2024-01-02 07:19 | Inpatient (IN) | payer BC, MEDICARE, SELFPAY ==
[2024-01-02] VITALS (76 sets, daily range): BP systolic 114–165; BP diastolic 68–107; PULSE 92–138; RESP 14–41; TEMP 36.4–36.6; O2SAT 4–100; BMI 28.5
--- NOTE | ~2024-01-02 | XR_ITS ---
EXAMINATION: XR chest 2V DATE: 01/02/2024 08:56 INDICATION: Shortness of breath TECHNIQUE: PA and lateral views of the chest are obtained. COMPARISON: 12/09/2023; CT, 10/24/2023 FINDINGS: There is chronic elevation of the right diaphragm with associated right basilar atelectasis . There is a small right pleural effusion. There are minimal airspace opacities of the left lung base . There is no pneumothorax. The cardiomediastinal silhouette is stable. Chronic thoracic burst fractu res are again noted. IMPRESSION: 1. Left basilar airspace opacity, consistent with atelectasis versus pneumonia. 2. Chronic elevation of the right hemidiaphragm with associated right basilar atelectasis. 3. Small right pleural effusion. Reviewed, dictated and finalized at location L. ATRY PROFESSOR IMPRESSION: 1. Left basilar airspace opacity, consistent with atelectasis versus pneumonia. 2. Chronic elevation of the right hemidiaphragm with associated right basilar a telectasis. 3. Small right pleural effusion.
--- NOTE | ~2024-01-02 | CT_ITS ---
Clinical Indication: Hypoxia CT Scan of the Chest with Contrast: Technique: Contiguous sections were acquired throughout the chest after intravenous administration of 100 cc of Omnipaque 350. Dose reduction technique was used on this scan by utilizing automated expos ure control and iterative reconstruction technique. The dose-length product (DLP) was 531.99 mGy-cm. COMPARISON: 10/24/2023 Findings: There is no evidence of any significant mediastinal, hilar or axillary lymphadenopathy. There is no f illing defect in the pulmonary arterial tree to suggest pulmonary embolus. There is no evidence of ao rtic dissection or aneurysm. There is no evidence of pleural or pericardial effusion. The lungs are clear, aside from mild bibasilar atelectatic change. Images through the upper abdomen reveal no abnormalities. Multiple compression fractures at the mid t o lower thoracic spine are stable from prior exam. Impression: No evidence of pulmonary embolus, aortic dissection, or aortic aneurysm. Mild bibasilar atelectasis, otherwise clear lungs. Stable spinal compression fractures. Reviewed, dictated and finalized at [facility]. R TREATMENT PLANT ENGINEER Impression: No evidence of pulmonary embolus, aortic dissection, or aortic aneurysm. Mild bibasilar atelectasis, otherwise clear lungs. Stable spinal compression fractures.
--- NOTE | ~2024-01-02 | US_ITS ---
EXAMINATION: US venous doppler [facility] DATE: 01/02/2024 19:07 INDICATION: Lower limb edema. TECHNIQUE: Grayscale ultrasound images without and with compression and Doppler ultrasound images of the bilateral lower extremity veins were obtained. COMPARISON: Ultrasound 10/24/2023 FINDINGS: The visualized portions of right common femoral vein, profunda (deep) femoral vein, femoral vein, pop liteal vein, peroneal veins, posterior tibial veins, and greater saphenous vein outflow are patent. The visualized portions of left common femoral vein, profunda femoral vein, femoral vein, popliteal v ein, peroneal veins, posterior tibial veins, and greater saphenous vein outflow are patent. IMPRESSION: 1. No deep venous thrombosis. Reviewed, dictated and finalized at location E. ONNEL MONITOR
--- NOTE | 2024-01-02 07:28 | ECG_ITS ---
Measurements Intervals [place] Rate: 125 P: 61 AK: 156 QRS: -16 QRSD: 84 T: 57 QT: 311 QTc: 450 Interpretive Statements SINUS TACHYCARDIA POOR R-WAVE PROGRESSION OLD INFERIOR INFARCT COMPARED TO ECG 12/05/2023 14:34:13 NO SIGNIFICANT CHANGES Electronically Signed On 01-02-2024 15:33:50 OPHTHALMOLOGY TECHNICIAN by Karla Trinidad M.D.
[2024-01-02 08:49] LABS: Basophils Percent Auto 0.3 % (0.2-1.2); Eosinophils Absolute Auto 0.1 K/mm3 (0-0.3); Eosinophils Percent Auto 1.3 % (0-4.4); Hematocrit 34.3 % (42.0-52.0); Hemoglobin 10.8 g/dL (14.0-18.0); Immature Granulocyte Absolute 0.17 K/mm3 (0.00-0.031); Immature Granulocyte Percent A 1.6 % (0-0.5); Lymphocytes Absolute Auto 1.56 K/mm3 (0.9-3.2); Lymphocytes Percent Auto 14.4 % (18.3-44.2); Mean Corpuscular HGB Conc 31.5 g/dl (32-36); Mean Corpuscular Hemoglobin 29.8 pg (26-34); Mean Corpuscular Volume 94.5 fl (80-100); Mean Platelet Volume 9.5 fl (7.4-10.4); Monocytes Absolute Auto 1.7 K/mm3 (0.1-0.6); Monocytes Percent Auto 15.3 % (2.6-8.5); Neutrophils Absolute Auto 7.3 K/mm3 (1.3-6.7); Neutrophils Percent Auto 67.1 % (45.5-73.1); Platelet Count Result 355 k/mm3 (150-375); Red Blood Count 3.63 M/mm3 (4.6-6.20); Red Cell Distribution Width 15.6 % (11.5-14.5); White Blood Count 10.9 K/mm3 (4.5-10.0)
[2024-01-02 08:59] LABS: INR 1.1; Prothrombin Time 14.4 Seconds (11.1-14.7)
[2024-01-02 09:00] LABS: Partial Thromboplastin Time 26.1 SECONDS (22.3-36.8)
[2024-01-02 09:01] LABS: Alanine Aminotransferase 23 U/L (6-50); Albumin Level 3.7 g/dL (3.5-5.1); Alkaline Phosphatase 103 U/L (38-126); Anion Gap 5 mmol/L (8-16); Aspartate Amino Transferase 30 U/L (17-59); Bilirubin,Total 0.7 mg/dL (0.2-1.3); Blood Urea Nitrogen 7 mg/dL (9-20); Calcium 8.9 mg/dL (8.4-10.2); Carbon Dioxide 28 mmol/L (22-30); Chloride 98 mmol/L (98-107); Estimated CRCL calculation 97 ml/min; Estimated Glomerular Filt Rate > 60; Glucose 119 mg/dL (65-110); Potassium 3.2 mmol/L (3.4-5.0); Sodium 131 mmol/L (137-145)
[2024-01-02 09:16] LABS: NT Pro B Type Natriuretic Pept 133 pg/mL (19.9-100); Troponin I 0.012 ng/mL (0.000-0.034)
--- NOTE | 2024-01-02 09:21 | ED.SOB ---
HPI - SOB/Dyspnea General Chief Complaint: Shortness of Breath/Dyspnea <Lesly Chi PA-C - Last Filed: 01/02/24 13:44> Stated Complaint: dyspnea edema <KARLI Young Last Filed: 01/02/24 13:44> Time Seen by Provider: 01/02/24 09:09 <KARLI Young Last Filed: 01/02/24 13:44> Source: patient <KARLI Young Last Filed: 01/02/24 13:44> Mode of arrival: ambulatory <KARLI Young Last Filed: 01/02/24 13:44> Limitations: no limitations <KARLI Young Last Filed: 01/02/24 13:44> History of Present Illness HPI Narrative: This is a 68 year old male that presents to the ER for of breath. Ongoing over the last couple of days. Associated with a productive cough. Reports neck pain which is chronic in nature. Reports some lower extremity edema. Denies chest pain. <KARLI Young Last Filed: 01/02/24 13:44> Related Data Home Medications: Home Medications Medication Instructions Recorded Confirmed aspirin 81 mg tablet,delayed 81 mg PO DAILY 10/17/19 12/05/23 release (Adult Aspirin Regimen) atorvastatin 20 mg tablet 20 mg PO DAILY 10/17/19 12/05/23 oxycodone-acetaminophen 10 mg-325 1 tablet PO TID PRN Pain (Scale 10/17/19 12/05/23 mg tablet (Percocet) Score 4-6) albuterol sulfate 90 mcg/actuation 2 puff inhalation TID Shortness Of 01/28/21 12/05/23 aerosol inhaler Breath aripiprazole 2 mg tablet 2 mg PO DAILY 01/28/21 12/05/23 acetaminophen 300 mg-codeine 60 mg 1 tablet PO TID PRN Pain 05/09/22 12/05/23 tablet carvedilol 25 mg tablet (Coreg) 25 mg PO BID 05/09/22 12/05/23 lidocaine 5 % topical patch 1 patch topical DAILY 12/27/22 12/05/23 methotrexate sodium 2.5 mg tablet 15 mg PO WEEKLY 06/20/23 12/05/23 cyclobenzaprine 10 mg tablet 10 mg PO BID 10/24/23 12/05/23 <Lesly Chi PA-C - Last Filed: 01/02/24 13:44> Allergies/Adverse Reactions: Allergies Allergy/AdvReac Type Severity Reaction Status Date / Time procaine Allergy Unknown HEART Verified 12/05/23 14:37 PROBLEMS vancomycin Allergy Unknown Rash Verified 12/05/23 14:37 <Lesly Chi PA-C - Last Filed: 01/02/24 13:44> Review of Systems Review of Systems: CONSTITUTIONAL: Denies fever ENT: Reports congestion CARDIOVASCULAR: Reports edema. Denies chest pain RESPIRATORY: Reports cough and dyspnea. <Lesly Chi PA-C - Last Filed: 01/02/24 13:44> All systems reviewed & are unremarkable except as noted in HPI and below <Lesly Chi PA-C - Last Filed: 01/02/24 13:44> [facility] Past Medical History Medical History: Medical History (Updated 01/02/24 @ 13:42 by Lesly Chi PA-C) Atherosclerosis of aorta Bipolar 1 disorder Cardiac aneurysm Patient states it is nonoperable. Chronic anemia Chronic back pain Chronic obstructive pulmonary disease Chronic respiratory failure with hypoxia and hypercapnia Congestive heart failure Coronary artery disease Depression Hyperlipidemia Hypertension Obstructive sleep apnea Oxygen dependent Paroxysmal atrial fibrillation Polyosteoarthritis, unspecified Psoriatic arthritis Tobacco abuse <Lesly Chi PA-C - Last Filed: 01/02/24 13:44> Surgical History Surgical History: Surgical History History of ankle surgery (1989) History of appendectomy (1986) History of coronary artery stent placement 1 stent in 2004. History of hammertoe correction (11/2017) History of left hip replacement (10/04/19) History of nasal septoplasty (1969) History of vasectomy (2004) <Lesly Chi PA-C - Last Filed: 01/02/24 13:44> Family History Family History: Family History Father COPD (chronic obstructive pulmonary disease) Mother Cancer <Lesly Chi PA-C - Last Filed: 01/02/24 13:44> Social History Social History: Social History (Revie
[2024-01-02 09:36] LABS: Alveolar/Arterial O2 Gradient 92.2 mmHg; Base Excess ABG 0.8 mEq/l (+/-2.0); Carboxyhemoglobin 3.2 % THb (0-2.0); Fractional Inspired Oxygen 32 %; HCO3 ABG 26.5 mEq/l (22.0-26.0); Methemoglobin ABG 0.3 %THb (0-1.5); Oxygen Content ABG 17.2 %vol (16.0-22.0); Oxygen Saturation ABG 95.7 % (95.0-100.0); Oxyhemoglobin 92.4 % THb (90.0-100.0); PCO2 ABG 46.5 mmHg (35.0-45.0); PO2 ABG 81.6 mmHg (80.0-100.0); PO2 FiO2 Ratio Arterial Blood 2.55 %; Reduced Hemoglobin 4.1 %THb (0-5.0); Total Hemoglobin 13.2 g/dL (12.0-18.0); pH ABG 7.373 (7.350-7.450)
[2024-01-02 09:37] LABS: Device NASAL CANNULA; Modified Allen's Test Pass; Site Drawn RIGHT RADIAL
[2024-01-02] MEDS: ALBUTEROL SULFATE NEB 2.5 MG/3 ML INH 15 MG INHALATION (09:45)
[2024-01-02] MEDS: IPRATROPIUM BR 0.02% INH SOLN 0.5 MG/2.5 ML VIAL 1.5 MG INHALATION (09:45)
[2024-01-02] MEDS: methylPREDNISolone SOD SUCC 125 MG VIAL IV PUSH (09:51)
[2024-01-02] MEDS: ASPIRIN 81 MG CHEWABLE TABLET 324 MG PO (09:51)
[2024-01-02] MEDS: POTASSIUM CHLORIDE INJ 40 MEQ in SODIUM CHLORIDE 0.9% IV 500 ML 130 MEQ IVPB (09:51)
[2024-01-02 09:55] LABS: Magnesium 1.8 mg/dL (1.6-2.3)
[2024-01-02 10:09] LABS: CRP 24.8 mg/dL (<1.0)
[2024-01-02 10:21] LABS: Lactic Acid Reflex 1.3 mmol/L (0.7-2.0)
[2024-01-02 10:23] LABS: Influenza A QL RT-PCR Negative (Negative); Influenza B QL RT-PCR Negative (Negative); RSV RNA, RT-PCR Negative (Negative); SARS-CoV-2 RNA PCR Negative (Negative)
--- NOTE | 2024-01-02 11:50 | ECG_ITS ---
Measurements Intervals Grant Rate: 129 P: 63 ND: 154 QRS: -19 QRSD: 82 T: 28 QT: 295 QTc: 433 Interpretive Statements SINUS TACHYCARDIA LOW QRS VOLTAGE IN PRECORDIAL LEADS [QRS DEFLECTION < 1.0 mV IN CHEST LEADS] BASELINE ARTIFACT LIMITS INTERPRETATION COMPARED TO ECG 01/02/2024 07:33:56 NO SIGNIFICANT CHANGES Electronically Signed On 01-02-2024 15:46:44 RELIGIOUS EDUCATION TEACHER by Karla Trinidad M.D.
[2024-01-02 12:22] LABS: Troponin I < 0.012 ng/mL (0.000-0.034)
[2024-01-02] MEDS: ALBUTEROL SULFATE NEB 2.5 MG/3 ML INH INHALATION ×2 (13:37→19:59)
[2024-01-02] MEDS: IPRATROPIUM BR 0.02% INH SOLN 0.5 MG/2.5 ML VIAL INHALATION ×2 (13:37→19:59)
[2024-01-02] MEDS: AZITHROMYCIN 500 MG/NS 250 ML 500 MG/250 ML BAG 250 MG IVPB (15:53)
[2024-01-02 16:11] LABS: Anion Gap 4 mmol/L (8-16); Blood Urea Nitrogen 10 mg/dL (9-20); Calcium 8.8 mg/dL (8.4-10.2); Carbon Dioxide 28 mmol/L (22-30); Chloride 97 mmol/L (98-107); Estimated CRCL calculation 74 ml/min; Estimated Glomerular Filt Rate > 60; Glucose 309 mg/dL (65-110); Potassium 4.9 mmol/L (3.4-5.0); Sodium 129 mmol/L (137-145)
--- NOTE | 2024-01-02 18:16 | ADMGEN ---
This patient, Israel Plascencia Sr., was admitted to Medical Room 255-01. Patient/family oriented to hospital policies and general routines including ID bracelet, bed and alarms, visiting hours, pain management, procedures, bathroom and other care routines, personal items, smoking policy, room service/diet, and visiting hours. Information on how to activate the Rapid Response Team has been discussed. Patient/Family are encouraged to report perceived risks to care and to ask questions if they do not understand what they are told or what they should do.
--- NOTE | 2024-01-02 18:34 | PM.IMHP ---
H&P: HPI History of Present Illness Date/Time: 01/02/24 15:15 Chief Complaint: Shortness of breath. Narrative: This is a pleasant 68-year-old male with chronic hypoxic and hypercarbic respiratory failure on oxygen and trilogy unit at nighttime, chronic obstructive pulmonary disease, congestive heart failure with most recent echocardiogram showing borderline low LV systolic function with an EF of 52% and grade 1 diastolic dysfunction, coronary artery disease, paroxysmal atrial fibrillation, hypertension, anemia, and history of deep venous thrombosis who presented to the emergency department from home for evaluation of shortness of breath. The patient provides the following history. He endorses increasing dyspnea on lesser and lesser exertion the last several days in addition to a cough productive of light yellow sputum. He has been compliant with his nebulizers and inhalers at home and rescue inhalers have not provided him with much relief. He has chronic lower extremity edema which seems to be a bit worse recently. He also has chronic orthopnea which he states is unchanged. He denies fever, chills, sweats, sick contacts, chest pain, pleuritic pain, nausea, vomiting, sweats, calf pain, syncope, and near syncope. In the ED: He was afebrile on arrival. SpO2 this morning was reportedly 70% on his usual 4 to 5 L nasal cannula. He was placed on BiPAP on arrival to the ED; ABG showed a pH of 7.373, pCO2 456.5, PO2 81.6, HC03 26.5, carboxyhemoglobin 3.2. Labs were significant for WBC count of 10.9, hemoglobin 10.8, sodium 131, potassium 3.2, creatinine 0.60, glucose 119, CRP 24.8, proBNP 133. Chest x-ray showed left basilar airspace opacities consistent with atelectasis versus pneumonia, chronic elevation of right hemidiaphragm with associated right basilar atelectasis, small right pleural effusion. [facility] Past Medical History Medical History (Updated 01/02/24 @ 23:39 by Rosa Vizcaino PA-C) Atherosclerosis of aorta Bipolar 1 disorder Cardiac aneurysm Patient states it is nonoperable. Chronic anemia Chronic back pain Chronic obstructive pulmonary disease Chronic respiratory failure with hypoxia and hypercapnia Congestive heart failure Coronary artery disease Depression Hyperlipidemia Hypertension Obstructive sleep apnea Oxygen dependent Paroxysmal atrial fibrillation Polyosteoarthritis, unspecified Psoriatic arthritis Tobacco abuse Surgical History Surgical History History of ankle surgery (1989) History of appendectomy (1986) History of coronary artery stent placement 1 stent in 2004. History of hammertoe correction (11/2017) History of left hip replacement (10/04/19) History of nasal septoplasty (1969) History of vasectomy (2004) Family History Family History Father COPD (chronic obstructive pulmonary disease) Mother Cancer Social History Social History Social History: Surrogate medical decision maker: Isatu Temo, spouse. Code status: Full code. Smoking packs per day: 1 Smoking cigarettes per day: 20.0 Years smoked: 50 Smoking pack-years: 50.00 Smoking status: Current every day smoker Tobacco type: cigarettes Second hand tobacco smoke exposure: No Alcohol intake: never Drinks per week: 1 Alcohol use details: 1 or 2 every 6 months Substance use: never Substance use type: does not use Do You Feel Safe in your Home?: Yes Lack of Transportation: No Lack of Food: Never True Current Housing: I Have Housing Concerned About Future Housing: No Difficulty Paying Gas/Electric Bills: No Difficulty Paying for Meds: No Currently Unemployed: No Education: Associate Degree Difficulty w/ Childcare or Family Care: No Living arrangements: with family Additional living arrangements comments: Lives with spous
[2024-01-02] MEDS: carvediloL 25 MG TABLET PO (19:35)
[2024-01-02 19:38] LABS: NT Pro B Type Natriuretic Pept 139 pg/mL (19.9-100)
[2024-01-02 20:19] LABS: D Dimer 1.85 ug/mL (<0.48)
[2024-01-02 21:01] LABS: Thyroid Stimulating Hormone Reflex 0.161 uIU/mL (0.465-4.68)
[2024-01-03] VITALS (26 sets, daily range): BP systolic 115–134; BP diastolic 62–82; PULSE 70–112; RESP 16–25; TEMP 36.3–36.6; O2SAT 91–100
[2024-01-03] MEDS: oxyCODONE/ACETAMINOPHEN (*CRX) 10-325 MG TABLET 1 TAB PO ×2 (00:29→18:37)
[2024-01-03] MEDS: GABAPENTIN 300 MG CAPSULE PO ×2 (00:29→20:39)
[2024-01-03] MEDS: FUROSEMIDE INJ 40 MG/4 ML VIAL IV PUSH ×2 (00:29→14:43)
[2024-01-03 02:34] LABS: Creatinine Urine 10.7 mg/dL; Urea Random Urine 88 MG/DL
[2024-01-03] MEDS: ALBUTEROL SULFATE NEB 2.5 MG/3 ML INH INHALATION (02:38)
[2024-01-03] MEDS: IPRATROPIUM BR 0.02% INH SOLN 0.5 MG/2.5 ML VIAL INHALATION (02:38)
[2024-01-03 03:39] LABS: Sodium Urine Random 61 meq/L
[2024-01-03 05:21] LABS: Hematocrit 33.9 % (42.0-52.0); Mean Corpuscular HGB Conc 29.5 g/dl (32-36); Mean Corpuscular Hemoglobin 28.8 pg (26-34); Mean Corpuscular Volume 97.7 fl (80-100); Platelet Count Result 338 k/mm3 (150-375); Red Blood Count 3.47 M/mm3 (4.6-6.20); Red Cell Distribution Width 15.3 % (11.5-14.5); White Blood Count 9.9 K/mm3 (4.5-10.0)
[2024-01-03 05:37] LABS: Anion Gap 5 mmol/L (8-16); Blood Urea Nitrogen 13 mg/dL (9-20); Calcium 9.1 mg/dL (8.4-10.2); Carbon Dioxide 28 mmol/L (22-30); Chloride 97 mmol/L (98-107); Estimated CRCL calculation 97 ml/min; Estimated Glomerular Filt Rate > 60; Glucose 142 mg/dL (65-110); Sodium 130 mmol/L (137-145)
[2024-01-03 05:52] LABS: Potassium 3.8 mmol/L (3.4-5.0)
[2024-01-03 05:54] LABS: Hemoglobin A1C 5.9 % (<5.7)
[2024-01-03 07:43] LABS: Free T4 Free Thyroxine Reflex 1.18 ng/dL (0.78-2.19)
[2024-01-03 08:11] LABS: Glucose Point of Care 183 mg/dl (65-105)
[2024-01-03] MEDS: IPRATROPIUM 0.5 MG/ALBUTEROL SULFATE 2.5 MG AMPUL.NEB 3 ML INHALATION ×4 (08:19→21:01)
[2024-01-03] MEDS: FLUTICASONE/UMECLIDIN/VILANTER 100-62.5-25 MCG ELLIPTA 1 PUFF INHALATION (08:19)
[2024-01-03 08:41] LABS: Total Triiodothyronine (T3) 0.97 NG/ML (0.97-1.69)
[2024-01-03] MEDS: lisinopriL 10 MG TABLET PO (09:49)
[2024-01-03] MEDS: FUROSEMIDE 40 MG TABLET PO (09:49)
[2024-01-03] MEDS: VENLAFAXINE HCL XR 75 MG CAP.ER.24H 225 MG PO (09:49)
[2024-01-03] MEDS: ASPIRIN 81 MG ENTERIC TABLET PO (09:49)
[2024-01-03] MEDS: ARIPiprazole 2 MG TABLET PO (09:49)
[2024-01-03] MEDS: SPIRONOLACTONE 25 MG TABLET PO (09:50)
[2024-01-03] MEDS: carvediloL 25 MG TABLET PO ×2 (09:50→20:39)
[2024-01-03] MEDS: predniSONE 20 MG TABLET 60 MG PO (09:50)
[2024-01-03] MEDS: ATORVASTATIN 20 MG TABLET PO (09:51)
[2024-01-03] MEDS: ENOXAPARIN 40 MG/0.4 ML SYRINGE SUB-Q (09:51)
[2024-01-03 12:08] LABS: Glucose Point of Care 138 mg/dl (65-105)
--- NOTE | 2024-01-03 13:46 | PM.CNCAR ---
Assessment and Plan Assessment and plan (1) Acute on chronic hypoxic respiratory failure: Code(s): J96.21 - Acute and chronic respiratory failure with hypoxia Status: Acute Assessment and Plan: Patient presentation consistent with acute on chronic hypoxic respiratory failure probable COPD exacerbation improving with noninvasive positive-pressure ventilation, bronchodilator therapy, steroids and IV antibiotics with azithromycin and ceftriaxone. There may be a very small component of acute on chronic decompensated diastolic heart failure but this is not his predominant precipitating contribution. This no doubt has been more an issue as he had not been taking any of his medications for at least 4 days prior to admission. Continue O2 supplementation, bronchodilator therapy with nebulizers. Please do not not hesitate to contact with additional questions or concerns. We will see patient on an as-needed basis. (2) Acute exacerbation of chronic obstructive pulmonary disease: Code(s): J44.1 - Chronic obstructive pulmonary disease with (acute) exacerbation Status: Acute Assessment and Plan: As above, continue supportive medical therapy bronchodilators, prednisone 60 mg daily, IV ceftriaxone and azithromycin, O2 supplementation, nebulizer therapy as clinically appropriate. Defer to primary service. (3) Sinus tachycardia: Code(s): R00.0 - Tachycardia, unspecified Status: Acute Assessment and Plan: Patient has been in sinus tachycardia as he had been off carvedilol for least 4 days prior to admission and received his 1st dose of carvedilol 25 mg twice daily. Patient also present acute on chronic hypoxic respiratory failure which was further driving his heart rate. Patient also reports he has chronic tachycardia new mellitus medical therapy intermittently. As such, tachycardia appears to be compensatory in nature and is in fact significantly improved after resumption of his home carvedilol 25 mg twice daily. No further concern in this regard at present. (4) Congestive heart failure: Qualifiers: Heart failure type: diastolic Heart failure chronicity: acute on chronic Qualified Code(s): I50.33 - Acute on chronic diastolic (congestive) heart failure Code(s): I50.9 - Heart failure, unspecified Status: Acute Assessment and Plan: Patient may possibly have a very mild component of acute on chronic diastolic heart failure although this is not his preferred dominant precipitating event for presentation. He has more edema than is his baseline we have been off his Lasix for least 4 days prior to admission. May given additional Lasix 40 mg IV x1. Monitor electrolytes including sodium potassium very closely. Check BMP in a.m.. Continue spironolactone 25 mg daily, lisinopril 10 mg daily, Lasix 40 mg daily, carvedilol 25 mg twice daily. DVT prophylaxis with enoxaparin 40 mg subcutaneous daily. (5) Coronary artery disease: Qualifiers: Coronary Disease-Associated Artery/Lesion type: [place] artery [place] vs. transplanted heart: [place] heart Associated angina: without angina Qualified Code(s): I25.10 - Atherosclerotic heart disease of [place] coronary artery without angina pectoris Code(s): I25.10 - Atherosclerotic heart disease of [place] coronary artery without angina pectoris Status: Acute Assessment and Plan: Stable, no acute issues. Negative troponin thus far. Continue aspirin 81 mg daily, atorvastatin 20 mg daily, carvedilol 25 mg twice daily. (6) Paroxysmal atrial fibrillation: Code(s): I48.0 - Paroxysmal atrial fibrillation Status: Acute Assessment and Plan: Maintaining sinus rhythm and sinus tachycardia. Patient is not a candidate for anticoagulation due to frequent falls. Continue aspirin 81 mg daily. Monitor for bleeding. Follow H&H. (7) Hypertension: Code(s): I10 - Essential (primary) hypertension Status:
[2024-01-03] MEDS: AZITHROMYCIN 500 MG/NS 250 ML 500 MG/250 ML BAG 250 MG IVPB (14:41)
[2024-01-03] MEDS: POTASSIUM CHLORIDE 20 MEQ PACKET (FOR LIQUID) PO (14:42)
--- NOTE | 2024-01-03 15:13 | PM.CNPUL ---
Assessment and Plan Assessment and plan (1) COPD exacerbation: Code(s): J44.1 - Chronic obstructive pulmonary disease with (acute) exacerbation Status: Acute Assessment and Plan: GOLD grade 4 group E COPD Patient with 100 pack year tobacco use, currently smoking 1 pack per day,? PFTs 02/12/2022 with an FEV1 of 0.75 L, 23% predicted, moderate severe restriction with a TLC of 58% and DLCO 29%. ? Patient with chronic hypoxemic respiratory failure he tells me he wears 2 L rest, 3 L activity.? Patient has chronic hypercarbic respiratory failure previously on AVAPS-AE with 6 L bleed in.? No bullous emphysema on his CT scan. ? patient has a paralyzed right hemidiaphragm.? Patient has psoriatic arthritis and is on methotrexate for 10 years, Actemra injection weekly, and prednisone 10 Q day. ? Per outpatient office note on 02/20/22 the patient was to start azithromycin 3 times a week.? Follows with service member Dr. Sears at [facility]. Patient saw his service member at [facility]] on 11/20/2023 And at that time he was having a COPD exacerbation. He was still smoking 1 pack per day. assessment and plan was stage IV very severe COPD essentially end-stage COPD. He had multiple frequent exacerbations requiring steroids and is now cushion oil. Despite prior discussions about his end-stage COPD continued to smoke and he was accepting of end of life should it come to that. Recommended hospitalization and we need to have palliative care consult the patient. Patient was admitted to the hospital from 11/20/2023 through 11/24/2023. His ABG on 4 L was 7.35/75/109. He was treated with bronchodilators, dexamethasone, ceftriaxone. Pulmonary had recommended hospice evaluation which was declined by the patient. Recommendation was for SNF placement and the patient refused. He was discharged on doxycycline and prednisone. currently the patient's has been hospitalized in the is a been off of his oral pills for the last 2 or 3 days, he continued his inhaled medicines. He developed worsening shortness of breath, no fever, no change in his minimal cough and minimal production of white phlegm. he had wheezes in the emergency department. His BNP was 139, his COVID influenza RSV RT PCR studies were negative. His CT angiogram of the chest showed no PE with mild bibasilar atelectasis. Plan: I will treat for COPD exacerbation will treat with steroids. He was given Solu-Medrol and 01/02 and today he was given prednisone 60 (day 2). He has no wheezing currently and I will decrease him to prednisone 40 starting tomorrow. he was treated for possible pneumonia but is CT scan shows no infiltrate and he had no leukocytosis or fever when he came Into the hospital. He is on ceftriaxone and azithromycin, day 2. Is blood cultures remain negative tomorrow I will discontinue the ceftriaxone. He is on albuterol ipratropium nebulizers Q 6 hours and I will increase the frequency to q.4 hours. I will stop the trilogy inhaler as he is on maximal doses beta agonist and long-acting muscarinic antagonists with the nebulizers and he is on oral steroids. Last time I saw the patient on 10/27/2023 there was recommendation for azithromycin 500 mg p.o. 3 times a week and Daliresp 500 mg p.o. q.day. I will readdress this with the patient when he is off the BiPAP and can better communicate. Once the patient is clinically improved will discuss with him his severe COPD, multiple hospitalizations, continued tobacco use and his wishes for continued resuscitation, palliative care and/or hospice. Will follow with you. (2) Chronic respiratory failure with hypoxia and hypercapnia: Code(s): J96.11 - Chronic respiratory failure with hypoxia; J96.12 - Chronic respiratory failure with hypercapnia Status: Acute Assessment and Plan: Last admitted to [facility] 10/23/2023 through 10/29/2023. At that time he was discharged with a change to his home noninvasive v
--- NOTE | 2024-01-03 16:26 | P.PNIM_ITS ---
Progress Note: A&P Assessment and Plan (1) Acute on chronic respiratory failure: Qualifiers: Respiratory failure complication: hypoxia Qualified Code(s): J96.21 - Acute and chronic respiratory failure with hypoxia Code(s): J96.20 - Acute and chronic respiratory failure, unspecified whether with hypoxia or hypercapnia Status: Acute Assessment and Plan: * Increased O2 need. On BiPAP intermittently- Uses 2-3L O2 via NC at home at baseline * Current smoker- refused nicotine patch * Diminished Lungs with diffuse expiratory wheezing * IV abx and PO steriods in place * COPD vs pneumonia * Consult Pulmonology for increased O2 needs * elevated D-dimer- CTA ordered- negative for PE (2) COPD exacerbation: Code(s): J44.1 - Chronic obstructive pulmonary disease with (acute) exacerbation Status: Acute Assessment and Plan: * COPD with 2-3L O2 continuous use at baseline * Increased O2 need- BiPAP intermittently * Sputum culture pending * IV abx and PO steriods in place * COPD vs pneumonia * Pulmonology consulted appreciate recommendations (3) Congestive heart failure: Qualifiers: Heart failure type: diastolic Heart failure chronicity: acute on chronic Qualified Code(s): I50.33 - Acute on chronic diastolic (congestive) heart failure Code(s): I50.9 - Heart failure, unspecified Status: Acute Assessment and Plan: * Hx of CHF- Echocardiogram last march showed an LV function at the low end of normal with an EF of 52% as well as grade 1 diastolic dysfunction.? * BNP elevated on ED work up * 2+ edema BLE * BLE dopplers R/O DVTs * Lasix IV given once * Continued home medications spironolactone 25 mg daily, lisinopril 10 mg daily, Lasix 40 mg daily, carvedilol 25 mg twice daily * Cardiology consulted for recommendations * CMP daily (4) Paroxysmal atrial fibrillation: Code(s): I48.0 - Paroxysmal atrial fibrillation Status: Acute Assessment and Plan: * Tachycardic- Maintaining sinus tachycardia * Not a candidate for anticoagulant due to frequent falls- ASA 81mg daily * Carvedilol continued * follow H&H (5) Hyperglycemia: Code(s): R73.9 - Hyperglycemia, unspecified Status: Acute Assessment and Plan: * Elevated glucose- use of steroids * Sliding scale insulin, Accu-chek and hypoglycemia protocol in place * Am glucose 142, HgbA1C 5.9 (6) Obstructive sleep apnea: Code(s): G47.33 - Obstructive sleep apnea (adult) (pediatric) Status: Acute Assessment and Plan: * uses CPAP at home * Pulmonology consulted for recommendations * BiPAP order in place until patient able to get home unit (7) Tobacco abuse: Code(s): Z72.0 - Tobacco use Status: Acute Assessment and Plan: * Discussed negative effect of smoking on health and smoking cessation * Refused nicotine patch at this time * Continue to educate Plan The patient presented to the emergency department for evaluation of shortness of breath as detailed in HPI. Labs, imaging, EKG, and all reports were personally reviewed. He was started on BiPAP in the emergency department due to work of breathing but has been weaned off of that. He is currently at 4 L nasal cannula which is his baseline. He has significant wheezing on exam suggestive of a COPD exacerbation. Likely due to ongoing tobacco use. He has 2+ lower extremity edema on exam today which was not present on my exam when I admitted this patient less than a month ago raising concern for possible CHF exacerbation as well. Echocardiogram last march showed
--- NOTE | 2024-01-03 16:26 | PM.IMPN ---
Progress Note: A&P Assessment and Plan (1) Acute on chronic respiratory failure: Qualifiers: Respiratory failure complication: hypoxia Qualified Code(s): J96.21 - Acute and chronic respiratory failure with hypoxia Code(s): J96.20 - Acute and chronic respiratory failure, unspecified whether with hypoxia or hypercapnia Status: Acute Assessment and Plan: Increased O2 need. On BiPAP intermittently- Uses 2-3L O2 via NC at home at baseline Current smoker- refused nicotine patch Diminished Lungs with diffuse expiratory wheezing IV abx and PO steriods in place COPD vs pneumonia Consult Pulmonology for increased O2 needs elevated D-dimer- CTA ordered- negative for PE (2) COPD exacerbation: Code(s): J44.1 - Chronic obstructive pulmonary disease with (acute) exacerbation Status: Acute Assessment and Plan: COPD with 2-3L O2 continuous use at baseline Increased O2 need- BiPAP intermittently Sputum culture pending IV abx and PO steriods in place COPD vs pneumonia Pulmonology consulted appreciate recommendations (3) Congestive heart failure: Qualifiers: Heart failure type: diastolic Heart failure chronicity: acute on chronic Qualified Code(s): I50.33 - Acute on chronic diastolic (congestive) heart failure Code(s): I50.9 - Heart failure, unspecified Status: Acute Assessment and Plan: Hx of CHF- Echocardiogram last march showed an LV function at the low end of normal with an EF of 52% as well as grade 1 diastolic dysfunction.? BNP elevated on ED work up 2+ edema BLE BLE dopplers R/O DVTs Lasix IV given once Continued home medications spironolactone 25 mg daily, lisinopril 10 mg daily, Lasix 40 mg daily, carvedilol 25 mg twice daily Cardiology consulted for recommendations CMP daily (4) Paroxysmal atrial fibrillation: Code(s): I48.0 - Paroxysmal atrial fibrillation Status: Acute Assessment and Plan: Tachycardic- Maintaining sinus tachycardia Not a candidate for anticoagulant due to frequent falls- ASA 81mg daily Carvedilol continued follow H&H (5) Hyperglycemia: Code(s): R73.9 - Hyperglycemia, unspecified Status: Acute Assessment and Plan: Elevated glucose- use of steroids Sliding scale insulin, Accu-chek and hypoglycemia protocol in place Am glucose 142, HgbA1C 5.9 (6) Obstructive sleep apnea: Code(s): G47.33 - Obstructive sleep apnea (adult) (pediatric) Status: Acute Assessment and Plan: uses CPAP at home Pulmonology consulted for recommendations BiPAP order in place until patient able to get home unit (7) Tobacco abuse: Code(s): Z72.0 - Tobacco use Status: Acute Assessment and Plan: Discussed negative effect of smoking on health and smoking cessation Refused nicotine patch at this time Continue to educate Plan The patient presented to the emergency department for evaluation of shortness of breath as detailed in HPI. Labs, imaging, EKG, and all reports were personally reviewed. He was started on BiPAP in the emergency department due to work of breathing but has been weaned off of that. He is currently at 4 L nasal cannula which is his baseline. He has significant wheezing on exam suggestive of a COPD exacerbation. Likely due to ongoing tobacco use. He has 2+ lower extremity edema on exam today which was not present on my exam when I admitted this patient less than a month ago raising concern for possible CHF exacerbation as well. Echocardiogram last march showed an LV function at the low end of normal with an EF of 52% as well as grade 1 diastolic dysfunction. He has been started on scheduled bronchodilators and p.o. prednisone. Continue empiric antibiotics for possible. Send sputum for culture. Check Legionella and pneumococcal antigens. Lasix x1 to see how he responds. May be prudent to repeat echocardiogram as he has not had 1 done since last spri
[2024-01-03 17:32] LABS: Glucose Point of Care 209 mg/dl (65-105)
[2024-01-03] MEDS: CYCLOBENZAPRINE HCL 10 MG TABLET PO (20:39)
[2024-01-03 21:28] LABS: Glucose Point of Care 129 mg/dl (65-105)
[2024-01-04] VITALS (24 sets, daily range): BP systolic 122–157; BP diastolic 72–86; PULSE 68–145; RESP 16–28; TEMP 36.4–36.7; O2SAT 94–98
[2024-01-04] MEDS: IPRATROPIUM 0.5 MG/ALBUTEROL SULFATE 2.5 MG AMPUL.NEB 3 ML INHALATION ×6 (00:03→19:47)
[2024-01-04] MEDS: ACETAMINOPHEN/CODEINE (*CRX) 300/30 MG TABLET 1 TAB PO (00:22)
[2024-01-04 05:21] LABS: Hematocrit 31.8 % (42.0-52.0); Hemoglobin 9.6 g/dL (14.0-18.0); Mean Corpuscular HGB Conc 30.2 g/dl (32-36); Mean Corpuscular Hemoglobin 29.5 pg (26-34); Mean Corpuscular Volume 97.8 fl (80-100); Platelet Count Result 361 k/mm3 (150-375); Red Blood Count 3.25 M/mm3 (4.6-6.20); Red Cell Distribution Width 15.3 % (11.5-14.5); White Blood Count 13.7 K/mm3 (4.5-10.0)
[2024-01-04 05:45] LABS: Alanine Aminotransferase 35 U/L (6-50); Albumin Level 3.5 g/dL (3.5-5.1); Alkaline Phosphatase 82 U/L (38-126); Anion Gap 3 mmol/L (8-16); Aspartate Amino Transferase 46 U/L (17-59); Bilirubin,Total 0.3 mg/dL (0.2-1.3); Blood Urea Nitrogen 17 mg/dL (9-20); Calcium 8.7 mg/dL (8.4-10.2); Carbon Dioxide 32 mmol/L (22-30); Chloride 93 mmol/L (98-107); Estimated CRCL calculation 74 ml/min; Estimated Glomerular Filt Rate > 60; Glucose 110 mg/dL (65-110); Potassium 4.5 mmol/L (3.4-5.0); Sodium 128 mmol/L (137-145)
[2024-01-04] MEDS: CYCLOBENZAPRINE HCL 10 MG TABLET PO ×2 (05:57→19:44)
[2024-01-04] MEDS: oxyCODONE/ACETAMINOPHEN (*CRX) 10-325 MG TABLET 1 TAB PO ×2 (05:57→19:44)
[2024-01-04 08:23] LABS: Glucose Point of Care 108 mg/dl (65-105)
[2024-01-04] MEDS: lisinopriL 10 MG TABLET PO (08:54)
[2024-01-04] MEDS: VENLAFAXINE HCL XR 75 MG CAP.ER.24H 225 MG PO (08:54)
[2024-01-04] MEDS: ASPIRIN 81 MG ENTERIC TABLET PO (08:54)
[2024-01-04] MEDS: SPIRONOLACTONE 25 MG TABLET PO (08:54)
[2024-01-04] MEDS: carvediloL 25 MG TABLET PO ×2 (08:55→20:21)
[2024-01-04] MEDS: ATORVASTATIN 20 MG TABLET PO (08:55)
[2024-01-04] MEDS: FUROSEMIDE 40 MG TABLET PO (08:55)
[2024-01-04] MEDS: predniSONE 20 MG TABLET 40 MG PO (08:55)
[2024-01-04] MEDS: ARIPiprazole 2 MG TABLET PO (08:55)
[2024-01-04] MEDS: ENOXAPARIN 40 MG/0.4 ML SYRINGE SUB-Q (08:56)
[2024-01-04] MEDS: LIDOCAINE 5% PATCH 1 PATCH TOPICAL (08:56)
[2024-01-04] MEDS: NICOTINE (*PBKC) 21 MG PATCH 1 PATCH TRANSDERM (09:08)
--- NOTE | 2024-01-04 10:19 | PM.PNPUL ---
Progress Note: A&P Assessment and Plan (1) COPD exacerbation: Code(s): J44.1 - Chronic obstructive pulmonary disease with (acute) exacerbation Status: Acute Assessment and Plan: GOLD grade 4 group E COPD Patient with 100 pack year tobacco use, currently smoking 1 pack per day,? PFTs 02/12/2022 with an FEV1 of 0.75 L, 23% predicted, moderate severe restriction with a TLC of 58% and DLCO 29%. ? Patient with chronic hypoxemic respiratory failure he tells me he wears 2 L rest, 3 L activity.? Patient has chronic hypercarbic respiratory failure previously on AVAPS-AE with 6 L bleed in.? No bullous emphysema on his CT scan. ? patient has a paralyzed right hemidiaphragm.? Patient has psoriatic arthritis and is on methotrexate for 10 years, Actemra injection weekly, and prednisone 10 Q day. ? Per outpatient office note on 02/20/22 the patient was to start azithromycin 3 times a week.? Follows with torch burner Dr. Sears at [facility]. Patient saw his torch burner at [facility] on 11/20/2023 And at that time he was having a COPD exacerbation. He was still smoking 1 pack per day. assessment and plan was stage IV very severe COPD essentially end-stage COPD. He had multiple frequent exacerbations requiring steroids and is now cushion oil. Despite prior discussions about his end-stage COPD continued to smoke and he was accepting of end of life should it come to that. Recommended hospitalization and we need to have palliative care consult the patient. Patient was admitted to the hospital from 11/20/2023 through 11/24/2023. His ABG on 4 L was 7.35/75/109. He was treated with bronchodilators, dexamethasone, ceftriaxone. Pulmonary had recommended hospice evaluation which was declined by the patient. Recommendation was for SNF placement and the patient refused. He was discharged on doxycycline and prednisone. currently the patient's has been hospitalized in the is a been off of his oral pills for the last 2 or 3 days, he continued his inhaled medicines. He developed worsening shortness of breath, no fever, no change in his minimal cough and minimal production of white phlegm. he had wheezes in the emergency department. His BNP was 139, his COVID influenza RSV RT PCR studies were negative. His CT angiogram of the chest showed no PE with mild bibasilar atelectasis. Plan: I will treat for COPD exacerbation will treat with steroids. He was given Solu-Medrol and 01/02 and today he was given prednisone 60 (day 2). He has no wheezing currently and I will decrease him to prednisone 40 starting tomorrow. he was treated for possible pneumonia but is CT scan shows no infiltrate and he had no leukocytosis or fever when he came Into the hospital. He is on ceftriaxone and azithromycin, day 2. Is blood cultures remain negative tomorrow I will discontinue the ceftriaxone. He is on albuterol ipratropium nebulizers Q 6 hours and I will increase the frequency to q.4 hours. I will stop the trilogy inhaler as he is on maximal doses beta agonist and long-acting muscarinic antagonists with the nebulizers and he is on oral steroids. Last time I saw the patient on 10/27/2023 there was recommendation for azithromycin 500 mg p.o. 3 times a week and Daliresp 500 mg p.o. q.day. I will readdress this with the patient when he is off the BiPAP and can better communicate. Once the patient is clinically improved will discuss with him his severe COPD, multiple hospitalizations, continued tobacco use and his wishes for continued resuscitation, palliative care and/or hospice. 01/04/24: The patient has improved and he states that his breathing is back to his normal. His cough and phlegm production with her both mild are back to his baseline. Currently the patient is on 3 L nasal cannula saturations 100%. I decreased him to 2 L nasal cannula saturations were 98%. Patient wore the hospital noninvasive ventilator with the AVAPS mode settings above and said the loco
--- NOTE | 2024-01-04 11:32 | ECG_ITS ---
Measurements Intervals [place] Rate: 110 P: 65 NC: 170 QRS: -3 QRSD: 80 T: 31 QT: 303 QTc: 410 Interpretive Statements SINUS TACHYCARDIA INFERIOR MYOCARDIAL INFARCTION , OF INDETERMINATE AGE [40+ ms Q WAVE AND/OR ST/T ABNORMALITY IN II/aVF] COMPARED TO ECG 01/02/2024 11:56:58 NO SIGNIFICANT CHANGES Electronically Signed On 01-04-2024 13:31:20 ELEMENTARY ASSISTANT TEACHER by Karla Trinidad M.D.
[2024-01-04] MEDS: SODIUM CHLORIDE 0.9% IV 1,000 ML 100 ML IV CONT (12:02)
[2024-01-04 12:04] LABS: Glucose Point of Care 137 mg/dl (65-105)
[2024-01-04 13:41] LABS: Troponin I < 0.012 ng/mL (0.000-0.034)
[2024-01-04] MEDS: AZITHROMYCIN 500 MG/NS 250 ML 500 MG/250 ML BAG 250 MG IVPB (14:56)
--- NOTE | 2024-01-04 16:11 | P.PNIM_ITS ---
Progress Note: A&P Assessment and Plan (1) Acute on chronic respiratory failure: Qualifiers: Respiratory failure complication: hypoxia Qualified Code(s): J96.21 - Acute and chronic respiratory failure with hypoxia Code(s): J96.20 - Acute and chronic respiratory failure, unspecified whether with hypoxia or hypercapnia Status: Acute Assessment and Plan: * Increased O2 need. On BiPAP intermittently- Uses 2-3L O2 via NC at home at baseline * Current smoker- refused nicotine patch * Diminished Lungs with diffuse expiratory wheezing * IV abx and PO steriods in place * COPD vs pneumonia * Consult Pulmonology for increased O2 needs * elevated D-dimer- CTA ordered- negative for PE * 01/04- Patient able to utilize 2L O2 via NC. Noted that he applies hospital noninvasive ventilator when he takes naps and tolerated this well. * Followed by Dr Sears at [facility]. * Pulmonology consulted and patient O2 needs and medications addressed. Rocephin discontinued, PO steriods decreased to 40, Neb treatments q4hr and trelegy inhaler discontinued. Pulmonology has seen patient and has historical knowledge of his condition. recommendation of care are appreciated. Pulmonolgy adjusted hospital noninvasive ventilator setting to appropriate patients home settings. * Pulmonology noted dx is COPD exacerbation * Requested Nicotine patch- order in place * Some expiratory wheezes noted in lung conte (2) COPD exacerbation: Code(s): J44.1 - Chronic obstructive pulmonary disease with (acute) exacerbation Status: Acute Assessment and Plan: * COPD with 2-3L O2 continuous use at baseline * Increased O2 need- BiPAP intermittently * Sputum culture pending * IV abx and PO steriods in place * COPD vs pneumonia * Pulmonology consulted appreciate recommendations * 01/04-Pulmonology noted dx is COPD exacerbation * Patient able to utilize 2L O2 via NC. Noted that he applies hospital noninvasive ventilator when he takes naps and tolerated this well. * Followed by Dr Sears at [facility]. * Pulmonology consulted and patient O2 needs and medications addressed. Rocephin discontinued, PO steroids decreased to 40, Neb treatments q4hr and trelegy inhaler discontinued. Pulmonology has seen patient and has historical knowledge of his condition. recommendation of care are appreciated. Pulmonology adjusted hospital noninvasive ventilator setting to appropriate patients home settings. If patient remains clinically stable possible discharge home on 01/05/2024. (3) Congestive heart failure: Qualifiers: Heart failure type: diastolic Heart failure chronicity: acute on chronic Qualified Code(s): I50.33 - Acute on chronic diastolic (congestive) heart failure Code(s): I50.9 - Heart failure, unspecified Status: Acute Assessment and Plan: * Hx of CHF- Echocardiogram last march showed an LV function at the low end of normal with an EF of 52% as well as grade 1 diastolic dysfunction.? * BNP elevated on ED work up * 2+ edema BLE * BLE dopplers R/O DVTs * Lasix IV given once * Continued home medications spironolactone 25 mg daily, lisinopril 10 mg daily, Lasix 40 mg daily, carvedilol 25 mg twice daily * Cardiology consulted for recommendations * CMP daily * 01/04 Cardiolgy assessed patient on 01/03 and per note expressed there may be a very small component of acute on chronic decompensated diastolic heart failure but this is not his predominant precipitating contribution. Note that patient has been off of home medication approx 4 days and this includes home lasix, which would contribut
--- NOTE | 2024-01-04 16:11 | PM.IMPN ---
Progress Note: A&P Assessment and Plan (1) Acute on chronic respiratory failure: Qualifiers: Respiratory failure complication: hypoxia Qualified Code(s): J96.21 - Acute and chronic respiratory failure with hypoxia Code(s): J96.20 - Acute and chronic respiratory failure, unspecified whether with hypoxia or hypercapnia Status: Acute Assessment and Plan: Increased O2 need. On BiPAP intermittently- Uses 2-3L O2 via NC at home at baseline Current smoker- refused nicotine patch Diminished Lungs with diffuse expiratory wheezing IV abx and PO steriods in place COPD vs pneumonia Consult Pulmonology for increased O2 needs elevated D-dimer- CTA ordered- negative for PE 01/04- Patient able to utilize 2L O2 via NC. Noted that he applies hospital noninvasive ventilator when he takes naps and tolerated this well. Followed by Dr Sears at [facility]. Pulmonology consulted and patient O2 needs and medications addressed. Rocephin discontinued, PO steriods decreased to 40, Neb treatments q4hr and trelegy inhaler discontinued. Pulmonology has seen patient and has historical knowledge of his condition. recommendation of care are appreciated. Pulmonolgy adjusted hospital noninvasive ventilator setting to appropriate patients home settings. Pulmonology noted dx is COPD exacerbation Requested Nicotine patch- order in place Some expiratory wheezes noted in lung conte (2) COPD exacerbation: Code(s): J44.1 - Chronic obstructive pulmonary disease with (acute) exacerbation Status: Acute Assessment and Plan: COPD with 2-3L O2 continuous use at baseline Increased O2 need- BiPAP intermittently Sputum culture pending IV abx and PO steriods in place COPD vs pneumonia Pulmonology consulted appreciate recommendations 01/04-Pulmonology noted dx is COPD exacerbation Patient able to utilize 2L O2 via NC. Noted that he applies hospital noninvasive ventilator when he takes naps and tolerated this well. Followed by Dr Sears at [facility]. Pulmonology consulted and patient O2 needs and medications addressed. Rocephin discontinued, PO steroids decreased to 40, Neb treatments q4hr and trelegy inhaler discontinued. Pulmonology has seen patient and has historical knowledge of his condition. recommendation of care are appreciated. Pulmonology adjusted hospital noninvasive ventilator setting to appropriate patients home settings. If patient remains clinically stable possible discharge home on 01/05/2024. (3) Congestive heart failure: Qualifiers: Heart failure type: diastolic Heart failure chronicity: acute on chronic Qualified Code(s): I50.33 - Acute on chronic diastolic (congestive) heart failure Code(s): I50.9 - Heart failure, unspecified Status: Acute Assessment and Plan: Hx of CHF- Echocardiogram last march showed an LV function at the low end of normal with an EF of 52% as well as grade 1 diastolic dysfunction.? BNP elevated on ED work up 2+ edema BLE BLE dopplers R/O DVTs Lasix IV given once Continued home medications spironolactone 25 mg daily, lisinopril 10 mg daily, Lasix 40 mg daily, carvedilol 25 mg twice daily Cardiology consulted for recommendations CMP daily 01/04 Cardiolgy assessed patient on 01/03 and per note expressed there may be a very small component of acute on chronic decompensated diastolic heart failure but this is not his predominant precipitating contribution. Note that patient has been off of home medication approx 4 days and this includes home lasix, which would contribute to BLE edema. Patient presentation consistent with acute on chronic hypoxic respiratory failure probable COPD exacerbation Hyponatremic on AM labs, 1L NS provided. Continue to monitor for S/s of exacerbation.Potassium 4.5. (4) Paroxysmal atrial fibrillation: Code(s): I48.0 - Paroxysmal atrial fibrillation Status: Acute Assessment and Plan: Tachyc
[2024-01-04 17:15] LABS: Glucose Point of Care 227 mg/dl (65-105)
[2024-01-04] MEDS: INSULIN ASPART (*BKC) 100 UNITS/ML SUB-Q (17:53)
[2024-01-04] MEDS: guaiFENesin 12 HR 600 MG TABCR PO (20:21)
[2024-01-04] MEDS: GABAPENTIN 300 MG CAPSULE PO (20:21)
[2024-01-04 20:28] LABS: Glucose Point of Care 97 mg/dl (65-105)
[2024-01-05] VITALS (15 sets, daily range): BP systolic 139–156; BP diastolic 62–92; PULSE 85–116; RESP 18–24; TEMP 36.3–36.9; O2SAT 97–100
--- NOTE | 2024-01-05 04:00 | PCRCNOTE ---
Pt is on an overnight sleep study, therefore 0000 breathing tx was not given. Pt will receive 0400 breathing tx.
[2024-01-05 04:56] LABS: Alveolar/Arterial O2 Gradient 20.8 mmHg; Base Excess ABG 7.4 mEq/l (+/-2.0); Fractional Inspired Oxygen 28 %; HCO3 ABG 32.4 mEq/l (22.0-26.0); Oxygen Content ABG 15.3 %vol (16.0-22.0); Oxygen Saturation ABG 98.5 % (95.0-100.0); Oxyhemoglobin 97.5 % THb (90.0-100.0); PCO2 ABG 47.3 mmHg (35.0-45.0); PO2 FiO2 Ratio Arterial Blood 4.39 %; pH ABG 7.453 (7.350-7.450)
[2024-01-05 04:57] LABS: Device NON-INVASIVE VENT; Modified Allen's Test Pass; Site Drawn RIGHT RADIAL
[2024-01-05 05:00] LABS: Non-Invasive Vent Rate 18 /MIN
[2024-01-05] MEDS: IPRATROPIUM 0.5 MG/ALBUTEROL SULFATE 2.5 MG AMPUL.NEB 3 ML INHALATION ×3 (05:00→11:28)
[2024-01-05 05:01] LABS: Non-Invasive Expiratory Pressure 5 CMH2O
[2024-01-05 05:10] LABS: Hematocrit 33.9 % (42.0-52.0); Hemoglobin 9.8 g/dL (14.0-18.0); Mean Corpuscular HGB Conc 28.9 g/dl (32-36); Mean Corpuscular Hemoglobin 28.5 pg (26-34); Mean Corpuscular Volume 98.5 fl (80-100); Mean Platelet Volume 9.8 fl (7.4-10.4); Platelet Count Result 393 k/mm3 (150-375); Red Blood Count 3.44 M/mm3 (4.6-6.20); Red Cell Distribution Width 15.4 % (11.5-14.5); White Blood Count 9.1 K/mm3 (4.5-10.0)
[2024-01-05 05:29] LABS: Alanine Aminotransferase 45 U/L (6-50); Albumin Level 3.5 g/dL (3.5-5.1); Alkaline Phosphatase 87 U/L (38-126); Anion Gap 0 mmol/L (8-16); Aspartate Amino Transferase 53 U/L (17-59); Bilirubin,Total 0.3 mg/dL (0.2-1.3); Blood Urea Nitrogen 19 mg/dL (9-20); Calcium 9.1 mg/dL (8.4-10.2); Carbon Dioxide 38 mmol/L (22-30); Chloride 95 mmol/L (98-107); Estimated CRCL calculation 74 ml/min; Estimated Glomerular Filt Rate > 60; Glucose 108 mg/dL (65-110); Potassium 4.2 mmol/L (3.4-5.0); Sodium 133 mmol/L (137-145)
[2024-01-05 08:25] LABS: Glucose Point of Care 116 mg/dl (65-105)
[2024-01-05] MEDS: predniSONE 20 MG TABLET 40 MG PO (09:13)
[2024-01-05] MEDS: VENLAFAXINE HCL XR 75 MG CAP.ER.24H 225 MG PO (09:14)
[2024-01-05] MEDS: ASPIRIN 81 MG ENTERIC TABLET PO (09:15)
[2024-01-05] MEDS: ATORVASTATIN 20 MG TABLET PO (09:15)
[2024-01-05] MEDS: ARIPiprazole 2 MG TABLET PO (09:15)
[2024-01-05] MEDS: SPIRONOLACTONE 25 MG TABLET PO (09:15)
[2024-01-05] MEDS: lisinopriL 10 MG TABLET PO (09:16)
--- NOTE | 2024-01-05 09:16 | P.PNPL_ITS ---
Progress Note: A&P Assessment and Plan (1) COPD exacerbation: Code(s): J44.1 - Chronic obstructive pulmonary disease with (acute) exacerbation Status: Acute Assessment and Plan: GOLD grade 4 group E COPD Patient with 100 pack year tobacco use, currently smoking 1 pack per day,? PFTs 02/12/2022 with an FEV1 of 0.75 L, 23% predicted, moderate severe restriction with a TLC of 58% and DLCO 29%. ? Patient with chronic hypoxemic respiratory failure he tells me he wears 2 L rest, 3 L activity.? Patient has chronic hypercarbic respiratory failure previously on AVAPS-AE with 6 L bleed in.? No bullous emphysema on his CT scan. ? patient has a paralyzed right hemidiaphragm.? Patient has psoriatic arthritis and is on methotrexate for 10 years, Actemra injection weekly, and prednisone 10 Q day. ? Per outpatient office note on 02/20/22 the patient was to start azithromycin 3 times a week.? Follows with artillery meteorological man Dr. Sears at [facility]. Patient saw his artillery meteorological man at [facility] on 11/20/2023 And at that time he was having a COPD exacerbation. He was still smoking 1 pack per day. assessment and plan was stage IV very severe COPD essentially end-stage COPD. He had multiple frequent exacerbations requiring steroids and is now cushion oil. Despite prior discussions about his end-stage COPD continued to smoke and he was accepting of end of life should it come to that. Recommended hosp italization and we need to have palliative care consult the patient. Patient was admitted to the hospital from 11/20/2023 through 11/24/2023. His ABG on 4 L was 7.35/75/109. He was treated with bronchodilators, dexamethasone, ceftriaxone. Pulmonary had recommended hospice evaluation which was declined by the patient. Recommendation was for SNF placement and the patient refused. He was discharged on doxycycline and prednisone. currently the patient's has been hospitalized in the is a been off of his oral pills for the last 2 or 3 days, he continued his inhaled medicines. He developed worsening shortness of breath, no fever, no change in his minimal cough and minimal production of white phlegm. he had wheezes in the emergency department. His BNP was 139, his COVID influenza RSV RT PCR studies were negative. His CT angiogram of the chest showed no PE with mild bibasilar atelectasis. Plan: I will treat for COPD exacerbation will treat with steroids. He was given Solu-Medrol and 01/02 and today he was given prednisone 60 (day 2). He has no wheezing currently and I will decrease him to prednisone 40 starting tomorrow. he was treated for possible pneumonia but is CT scan shows no infiltrate and he had no leukocytosis or fever when he came Into the hospital. He is on ceftriaxone and azithromycin, day 2. Is blood cultures remain negative tomorrow I will discontinue the ceftriaxone. He is on albuterol ipratropium nebulizers Q 6 hours and I will increase the frequency to q.4 hours. I will stop the trilogy inhaler as he is on maximal doses beta agonist and long-acting muscarinic antagonists with the nebulizers and he is on oral steroids. Last time I saw the patient on 10/27/2023 there was recommendation for azithromycin 500 mg p.o. 3 times a week and Daliresp 500 mg p.o. q.day. I will readdress this with the patient when he is off the BiPAP and can better communicate. Once the patient is clinically improved will discuss with him his severe COPD, multiple hospitalizations, continued tobacco use and his wishes for continued resuscitation, palliative care and/or hospice. 01/04/24: The patient has improved and he states that his breathing is back to his normal. His cough and phlegm production with her both mild are back to his baseline. Currently the beatriz
[2024-01-05] MEDS: FUROSEMIDE 40 MG TABLET PO (09:20)
[2024-01-05] MEDS: carvediloL 25 MG TABLET PO (09:20)
[2024-01-05] MEDS: NICOTINE (*PBKC) 21 MG PATCH 1 PATCH TRANSDERM (09:21)
[2024-01-05] MEDS: guaiFENesin 12 HR 600 MG TABCR PO (09:21)
[2024-01-05] MEDS: ENOXAPARIN 40 MG/0.4 ML SYRINGE SUB-Q (09:22)
[2024-01-05] MEDS: LIDOCAINE 5% PATCH 1 PATCH TOPICAL (10:32)
[2024-01-05 11:38] LABS: Mycoplasma IgM Antibody Titer 146 U/mL (<770)
[2024-01-05 12:15] LABS: Glucose Point of Care 187 mg/dl (65-105)
[2024-01-05] MEDS: AZITHROMYCIN 250 MG TABLET 500 MG PO (12:20)
--- NOTE | 2024-01-05 13:12 | P.DS_ITS ---
DS: Admitting Diagnosis Discharge Date 01/05/24 Admitting Diagnosis COPD Exacerbation DS: Discharge Diagnosis Discharge Diagnosis (1) Acute on chronic respiratory failure: Qualifiers: Respiratory failure complication: hypoxia Qualified Code(s): J96.21 - Acute and chronic respiratory failure with hypoxia Code(s): J96.20 - Acute and chronic respiratory failure, unspecified whether with hypoxia or hypercapnia Status: Acute Assessment and Plan: * Increased O2 need. On BiPAP intermittently- Uses 2-3L O2 via NC at home at baseline * Current smoker- refused nicotine patch * Diminished Lungs with diffuse expiratory wheezing * IV abx and PO steriods in place * COPD vs pneumonia * Consult Pulmonology for increased O2 needs * elevated D-dimer- CTA ordered- negative for PE * 01/04- Patient able to utilize 2L O2 via NC. Noted that he applies hospital noninvasive ventilator when he takes naps and tolerated this well. * Followed by Dr Sears at [facility] * Pulmonology consulted and patient O2 needs and medications addressed. Rocephin discontinued, PO steriods decreased to 40, Neb treatments q4hr and trelegy inhaler discontinued. Pulmonology has seen patient and has historical knowledge of his condition. recommendation of care are appreciated. Pulmonolgy adjusted hospital noninvasive ventilator setting to appropriate patients home settings. * Pulmonology noted dx is COPD exacerbation * Requested Nicotine patch- order in place * Some expiratory wheezes noted in lung conte * 01/05-Patient able to utilize 2L O2 via NC. No increased respiratory effort noted. He notes that he is back to baseline respiratory status. Pulmonolgy preformed study with hospital noninvasive ventilator with a fullface mask with AVAPS settings with a rate of 18, tidal volume 550, EPAP 5, minimal inspiratory pressure 6, maximal inspiratory pressure 25, inspiratory time 1.2, rise of 3 and 28% FIO2. With a blood gas in the morning of 7.45/47/123. Overnight oximetry on these studies with recording duration of 6 hours and 56 minutes. Average saturation 98%. Pulmonology saw patient and notes that he has show improvement and is back to baseline which is stable to discharge (2) COPD exacerbation: Code(s): J44.1 - Chronic obstructive pulmonary disease with (acute) exacerbation Status: Acute Assessment and Plan: * COPD with 2-3L O2 continuous use at baseline * Increased O2 need- BiPAP intermittently * Sputum culture pending * IV abx and PO steriods in place * COPD vs pneumonia * Pulmonology consulted appreciate recommendations * 01/04-Pulmonology noted dx is COPD exacerbation * Patient able to utilize 2L O2 via NC. Noted that he applies hospital noninvasive ventilator when he takes naps and tolerated this well. * Followed by Dr Sears at [facility] * Pulmonology consulted and patient O2 needs and medications addressed. Rocephin discontinued, PO steroids decreased to 40, Neb treatments q4hr and trelegy inhaler discontinued. Pulmonology has seen patient and has historical knowledge of his condition. recommendation of care are appreciated. Pulmonology adjusted hospital noninvasive ventilator setting to appropriate patients home settings. If patient remains clinically stable possible discharge home on 01/05/2024. * 01/05: Patient continues to improve, stated that he is back at baseline respiratory status. Cough remains but he noted that it is improved from his baseline. Afebrile. Pulmonolgy examined and dicussed that patient is stable to discharge home that this time. Pulmonolgy stated patient should be discharged o
--- NOTE | 2024-01-05 13:12 | PM.DS ---
DS: Admitting Diagnosis Discharge Date 01/05/24 Admitting Diagnosis COPD Exacerbation DS: Discharge Diagnosis Discharge Diagnosis (1) Acute on chronic respiratory failure: Qualifiers: Respiratory failure complication: hypoxia Qualified Code(s): J96.21 - Acute and chronic respiratory failure with hypoxia Code(s): J96.20 - Acute and chronic respiratory failure, unspecified whether with hypoxia or hypercapnia Status: Acute Assessment and Plan: Increased O2 need. On BiPAP intermittently- Uses 2-3L O2 via NC at home at baseline Current smoker- refused nicotine patch Diminished Lungs with diffuse expiratory wheezing IV abx and PO steriods in place COPD vs pneumonia Consult Pulmonology for increased O2 needs elevated D-dimer- CTA ordered- negative for PE 01/04- Patient able to utilize 2L O2 via NC. Noted that he applies hospital noninvasive ventilator when he takes naps and tolerated this well. Followed by Dr Sears at [facility] Pulmonology consulted and patient O2 needs and medications addressed. Rocephin discontinued, PO steriods decreased to 40, Neb treatments q4hr and trelegy inhaler discontinued. Pulmonology has seen patient and has historical knowledge of his condition. recommendation of care are appreciated. Pulmonolgy adjusted hospital noninvasive ventilator setting to appropriate patients home settings. Pulmonology noted dx is COPD exacerbation Requested Nicotine patch- order in place Some expiratory wheezes noted in lung conte 01/05-Patient able to utilize 2L O2 via NC. No increased respiratory effort noted. He notes that he is back to baseline respiratory status. Pulmonolgy preformed study with hospital noninvasive ventilator with a fullface mask with AVAPS settings with a rate of 18, tidal volume 550, EPAP 5, minimal inspiratory pressure 6, maximal inspiratory pressure 25, inspiratory time 1.2, rise of 3 and 28% FIO2. With a blood gas in the morning of 7.45/47/123. Overnight oximetry on these studies with recording duration of 6 hours and 56 minutes. Average saturation 98%. Pulmonology saw patient and notes that he has show improvement and is back to baseline which is stable to discharge (2) COPD exacerbation: Code(s): J44.1 - Chronic obstructive pulmonary disease with (acute) exacerbation Status: Acute Assessment and Plan: COPD with 2-3L O2 continuous use at baseline Increased O2 need- BiPAP intermittently Sputum culture pending IV abx and PO steriods in place COPD vs pneumonia Pulmonology consulted appreciate recommendations 01/04-Pulmonology noted dx is COPD exacerbation Patient able to utilize 2L O2 via NC. Noted that he applies hospital noninvasive ventilator when he takes naps and tolerated this well. Followed by Dr Sears at [facility] Pulmonology consulted and patient O2 needs and medications addressed. Rocephin discontinued, PO steroids decreased to 40, Neb treatments q4hr and trelegy inhaler discontinued. Pulmonology has seen patient and has historical knowledge of his condition. recommendation of care are appreciated. Pulmonology adjusted hospital noninvasive ventilator setting to appropriate patients home settings. If patient remains clinically stable possible discharge home on 01/05/2024. 01/05: Patient continues to improve, stated that he is back at baseline respiratory status. Cough remains but he noted that it is improved from his baseline. Afebrile. Pulmonolgy examined and dicussed that patient is stable to discharge home that this time. Pulmonolgy stated patient should be discharged on the following medications and treatments Prednisone 40 mg p.o. q.day x1 day Azithromycin 250 mg p.o. q.day x1 day Trelegy 100-60 2.5-25 at 1 puff q.day Albuterol 2 puffs q.4 hours p.r.n. shortness of breath Oxygen at rest and with activity per formal home O2 assessment which I have ordered. When patient naps or sleeps noninvasive ventilation with A
--- NOTE | 2024-01-05 13:48 | PCRCNOTE ---
HOME O2 EVAL COMPLETED, NO CHANGES TO CURRENT O2 SETTINGS. 2L REST AND BLEED INTO HOME TRILOGY AND 3 L WITH ACTIVITY.
[2024-01-05 21:01] LABS: Osmolality, Urine 200 mOsm/kg (50-1200); Pneumococcal Antigen Urine Not Detected (Not Detected)
[2024-01-07 08:08] LABS: Legionella pneumophila Ag Ur Not Detected (Not Detected)
== END 2024-01-05 14:17 | disposition home or self-care (01) | DRG 190 ==
LOC: ANHED 13:36 → ANH2MED 17:47
PROVIDERS: Family Medicine; Internal Medicine Pulmonary Disease; Physician Assistant; Admitting Provider Internal Medicine; Emergency Provider Physician Assistant; PCP Family Medicine; Visit Provider Nurse Practitioner Family
DX: J44.1 Chronic obstructive pulmonary disease with (acute) exacerbation (principal); I50.33 Acute on chronic diastolic (congestive) heart failure; J96.21 Acute and chronic respiratory failure with hypoxia; J18.9 Pneumonia, unspecified organism; E87.1 Hypo-osmolality and hyponatremia; J44.0 Chronic obstructive pulmonary disease with (acute) lower respiratory infection; I11.0 Hypertensive heart disease with heart failure; D64.9 Anemia, unspecified; E87.6 Hypokalemia; I25.10 Atherosclerotic heart disease of native coronary artery without angina pectoris; I48.0 Paroxysmal atrial fibrillation; R73.9 Hyperglycemia, unspecified; F31.9 Bipolar disorder, unspecified; G47.33 Obstructive sleep apnea (adult) (pediatric); L40.50 Arthropathic psoriasis, unspecified; R00.0 Tachycardia, unspecified; E78.5 Hyperlipidemia, unspecified; Z96.642 Presence of left artificial hip joint; F17.210 Nicotine dependence, cigarettes, uncomplicated; Z86.718 Personal history of other venous thrombosis and embolism; Z99.81 Dependence on supplemental oxygen; Z90.49 Acquired absence of other specified parts of digestive tract; Z95.5 Presence of coronary angioplasty implant and graft; Z79.82 Long term (current) use of aspirin
CPT/HCPCS: 36415; 36600; 71046; 71275; 80048; 80053; 82375; 82570; 82805; 82948; 83036; 83050; 83605; 83735; 83880; 83930; 83935; 84300; 84439; 84443; 84480; 84484; 84540; 85025; 85027; 85380; 85610; 85730; 86140; 86738; 87040; 87070; 87205; 87449; 87637; 87899; 93005; 93970; 94002; 94003; 94640; 94762; 96365; 96366; 96367; 96375; 99285; A9270; G0378; J0456; J0696; J1650; J1815; J1940; J2930; J3480; J7030; J7040; J7512; Q9967